=== PATIENT | male | born 1960 | race Caucasian/White ===

== ENCOUNTER 2019-07-29 08:46 | Emergency (ER) | payer BC ==
[2019-07-29] MEDS ORDERED: DOCUSATE NA 100 MG CAP PO ONE (10:00)
[2019-07-29 10:31] VITALS: BP 172/81; TEMP 98.3; O2SAT 99
--- NOTE | 2019-07-29 11:11 | ER ---
Nurse's Notes [facility] Name: Dany Thornton Age: 59 yrs Sex: Male : 1960 Arrival Date: 07/29/2019 Time: 08:50 Bed 2 Private MD: Kayode Rodriguez S Diagnosis: Impacted cerumen, bilateral Presentation: 07/29 09:05 Presenting complaint: Patient states: left ear pain. Pt states "It's been hurting for aa5 about 6 days now and I can't really hear out of it". 09:05 Transition of care: patient was not received from another setting of care. Onset of aa5 symptoms was July 2019. Risk Assessment: Do you want to hurt yourself or someone else? Patient reports no desire to harm self or others. Initial Sepsis Screen: Does the patient meet any 2 criteria? No. Patient's initial sepsis screen is negative. Does the patient have a suspected source of infection? No. Patient's initial sepsis screen is negative. Care prior to arrival: None. 09:05 Acuity: IRINEO 5 aa5 09:05 Method Of Arrival: Ambulatory aa5 Historical: - Allergies: 09:06 No Known Allergies; aa5 - PMHx: 09:06 Hypertension; aa5 - PSHx: 09:06 meniscus sx; left knee replacement; L shoulder sx; aa5 - Immunization history:: Flu vaccine is not up to date. - Social history:: Smoking status: Patient/guardian denies using tobacco. - Ebola Screening: : No symptoms or risks identified at this time. - Family history:: not pertinent. Screenin:30 Abuse screen: Denies threats or abuse. Denies injuries from another. Nutritional sv screening: No deficits noted. Tuberculosis screening: No symptoms or risk factors identified. Fall Risk None identified. Assessment: 09:30 General: Appears in no apparent distress. uncomfortable, well developed, Behavior is sv calm, cooperative, appropriate for age. Pain: Complains of pain in right ear and left ear Pain currently is 2 out of 10 on a pain scale. Neuro: Level of Consciousness is awake, alert, obeys commands, Oriented to person, place, time, situation, Gait is steady. Respiratory: Respiratory effort is even, unlabored, Respiratory pattern is regular, symmetrical. EENT: Tympanic membrane not visualized left ear and right ear due to cerumen. Ear canal cerumen noted. Derm: Skin is pink, warm \\T\\ dry. 09:40 Reassessment: Pt up for discharge, pt needs ear irrigation and waiting for pharmacy to bring medication for irrigation. 10:20 EENT: Tympanic membrane clear on left ear and right ear Ear canal clear on left ear and sv right ear. Vital Signs: 09:07 BP 172 / 81; Pulse 62; Resp 16 S; Temp 98.3(TE); Pulse Ox 99% ; Weight 69.85 kg (R); aa5 Height 5 ft. 7 in. (170.18 cm) (R); Pain 2/10; 09:07 Body Mass Index 24.12 (69.85 kg, 170.18 cm) aa5 ED Course: 08:50 Patient arrived in ED. as 08:50 Kayode Rodriguez MD is Private Physician. as 09:07 Triage completed. aa5 09:07 Arm band placed on. aa5 09:09 Mark Aquino MD is Attending Physician. alan 09:30 Patient has correct armband on for positive identification. Bed in low position. Call sv light in reach. Door closed. Head of bed elevated. 09:31 Kayode Rodriguez MD is Referral Physician. alan 09:31 Radha Bolanos MD is Referral Physician. alan 09:50 One-on-one care X 30 minutes. sv 09:50 Ear irrigation: Route both ears with Other warm water per Dr Aquino amount 500ml sv Patient tolerated well. 09:52 Radha Salgado RN is Primary Nurse. sv 10:26 No provider procedures requiring assistance completed. Patient did not have IV access sv during this emergency room visit. Administered Medications: 10:22 Drug: Colace Liquid 100 mg Route: PO; sv 10:22 Follow up: Response: No adverse reaction sv Outcome: 09:32 Discharge ordered by . alan 10:23 Discharged to home ambulatory. sv 10:23 Condition: stable 10:23 Discharge instructions given to patient, Instructed on discharge instructions, follow up and referral plans. Demonstrated understanding of instructions, follow-up care. 10:26 Patient left the ED. sv Signatures: Radha Salgado RN RN Miles, Mark, MD MD alan Dinesh, Cesia as Cummins, Dariana, RN RN aa5
--- NOTE | 2019-07-29 11:12 | EDPHYS ---
Physician Documentation [facility] Name: Dany Thornton Age: 59 yrs Sex: Male : 1960 Arrival Date: 07/29/2019 Time: 08:50 Bed 2 Private MD: Kayode Rodriguez S ED Physician Mark Aquino HPI: 07/29 09:24 This 59 yrs old Male presents to ER via Ambulatory with complaints of Ear alan Pain. 09:24 The patient presents with a fullness, pain. The complaints affect the right ear and alan left ear. Onset: The symptoms/episode began/occurred 3 day(s) ago. Modifying factors: The symptoms are alleviated by nothing, the symptoms are aggravated by nothing. Associated signs and symptoms: The patient has no apparent associated signs or symptoms. Severity of symptoms: At their worst the symptoms were mild in the emergency department the symptoms are unchanged. The patient has not experienced similar symptoms in the past. Historical: - Allergies: 09:06 No Known Allergies; aa5 - PMHx: 09:06 Hypertension; aa5 - PSHx: 09:06 meniscus sx; left knee replacement; L shoulder sx; aa5 - Immunization history:: Flu vaccine is not up to date. - Social history:: Smoking status: Patient/guardian denies using tobacco. - Ebola Screening: : No symptoms or risks identified at this time. - Family history:: not pertinent. ROS: 09:24 Constitutional: Negative for fever, chills, and weight loss, Eyes: Negative for injury, alan pain, redness, and discharge, Neck: Negative for injury, pain, and swelling, Cardiovascular: Negative for chest pain, palpitations, and edema, Respiratory: Negative for shortness of breath, cough, wheezing, and pleuritic chest pain, Abdomen/GI: Negative for abdominal pain, nausea, vomiting, diarrhea, and constipation, Back: Negative for injury and pain, : Negative for injury, bleeding, discharge, and swelling, MS/Extremity: Negative for injury and deformity, Skin: Negative for injury, rash, and discoloration, Neuro: Negative for headache, weakness, numbness, tingling, and seizure, Psych: Negative for depression, anxiety, suicide ideation, homicidal ideation, and hallucinations, Allergy/Immunology: Negative for hives, rash, and allergies, Endocrine: Negative for neck swelling, polydipsia, polyuria, polyphagia, and marked weight changes, Hematologic/Lymphatic: Negative for swollen nodes, abnormal bleeding, and unusual bruising. 09:24 ENT: Positive for ear pain. Exam: 09:24 Constitutional: This is a well developed, well nourished patient who is awake, alert, alan and in no acute distress. Head/Face: Normocephalic, atraumatic. Eyes: Pupils equal round and reactive to light, extra-ocular motions intact. Lids and lashes normal. Conjunctiva and sclera are non-icteric and not injected. Cornea within normal limits. Periorbital areas with no swelling, redness, or edema. Neck: Trachea midline, no thyromegaly or masses palpated, and no cervical lymphadenopathy. Supple, full range of motion without nuchal rigidity, or vertebral point tenderness. No Meningismus. Chest/axilla: Normal chest wall appearance and motion. Nontender with no deformity. No lesions are appreciated. Cardiovascular: Regular rate and rhythm with a normal S1 and S2. No gallops, murmurs, or rubs. Normal PMI, no JVD. No pulse deficits. Respiratory: Lungs have equal breath sounds bilaterally, clear to auscultation and percussion. No rales, rhonchi or wheezes noted. No increased work of breathing, no retractions or nasal flaring. Abdomen/GI: Soft, non-tender, with normal bowel sounds. No distension or tympany. No guarding or rebound. No evidence of tenderness throughout. Back: No spinal tenderness. No costovertebral tenderness. Full range of motion. Male : Normal genitalia with no discharge or lesions. Skin: Warm, dry with normal turgor. Normal color with no rashes, no lesions, and no evidence of cellulitis. MS/ Extremity: Pulses equal, no cyanosis. Neurovascular intact. Full, normal range of motion. Neuro: Awake and alert, GCS 15, oriented to person, place, time, and situation. Cranial nerves II-XII grossly intact. Motor strength 5/5 in all extremities. Sensory grossly intact. Cerebellar exam normal. Normal gait. Psych: Awake, alert, with orientation to person, place and time. Behavior, mood, and affect are within normal limits. :24 ENT: Ear canal(s): cerumen impaction, that is mild, that is moderate, bilaterally, TM's: not visable, because of cerumen. Vital Signs: 09:07 BP 172 / 81; Pulse 62; Resp 16 S; Temp 98.3(TE); Pulse Ox 99% ; Weight 69.85 kg (R); aa5 Height 5 ft. 7 in. (170.18 cm) (R); Pain 2/10; 09:07 Body Mass Index 24.12 (69.85 kg, 170.18 cm) aa5 MDM: 09:09 Patient medically screened. [facility] 09:27 Data reviewed: vital signs, nurses notes. [facility] 07/29 09:24 Order name: Misc. Order: irrigate each ear; Complete Time: 10:22 [facility] Administered Medications: :22 Drug: Colace Liquid 100 mg Route: PO; sv 10:22 Follow up: Response: No adverse reaction sv Disposition: 07/29/19 09:32 Discharged to Home. Impression: Impacted cerumen, bilateral. - Condition is Stable. - Discharge Instructions: Earwax Buildup, Adult, Ear Irrigation. - Medication Reconciliation Form, Thank You Letter, Antibiotic Education, Prescription Opioid Use form. - Follow up: Kayode Rodriguez MD; When: 2 - 3 days; Reason: Recheck today's complaints, Continuance of care, Re-evaluation by your physician. Follow up: Radha Bolanos MD; When: 2 - 3 days; Reason: Recheck today's complaints, Continuance of care, Re-evaluation by your physician. - Problem is new. - Symptoms have improved. Signatures: Radha Salgado, HARSHAD RN Mark Ashby MD MD cha Calderon, Audri RN RN aa5 Corrections: (The following items were deleted from the chart) 10:26 09:32 07/29/2019 09:32 Discharged to Home. Impression: Impacted cerumen, bilateral. sv Condition is Stable. Forms are Medication Reconciliation Form, Thank You Letter, Antibiotic Education, Prescription Opioid Use. Follow up: Kayode Rodriguez; When: 2 - 3 days; Reason: Recheck today's complaints, Continuance of care, Re-evaluation by your physician. Follow up: Radha Bolanos; When: 2 - 3 days; Reason: Recheck today's complaints, Continuance of care, Re-evaluation by your physician. Problem is new. Symptoms have improved. alan
== END 2019-07-29 10:26 | disposition home or self-care (01) ==
LOC: ER 08:46
DX: H61.23 Impacted cerumen, bilateral (principal)
CPT/HCPCS: 99284

== ENCOUNTER 2022-07-08 11:08 | Emergency (ER) | payer BC ==
--- OUTSIDE RECORDS SUMMARY | 2022-07-08 11:13 | XMS REPORT | Continuity of Care Document ---
:1960 Author Organization [facility] [place] t Address [address] [place] [address] [address]. [address] [place] [address] Care Team Providers Name Role Phone Kayode Pereira MD Primary Care Physician CHAPARRO TRAN Attending Clinician Unavailable Pob, [facility] Main Attending Clinician Unavailable Susy Hernandez MD Attending Clinician SUSY HERNANDEZ Attending Clinician Unavailable Doctor Unassigned, [place] Attending Clinician Unavailable Kayode Pereira MD Attending Clinician KAYODE PEREIRA Attending Clinician Unavailable CHRISTINA LÓPEZ Attending Clinician Unavailable Only, [facility] Test Attending Clinician Unavailable Christina Lovelace Attending Clinician Jacqueline Jones RN Attending Clinician Unavailable Provider, [facility] Attending Clinician Unavailable Henok Sorto Attending Clinician HENOK WYNNE Attending Clinician Unavailable aJ Sparks MD Attending Clinician JA SPARKS Attending Clinician Unavailable RADIOLOGY Attending Clinician Unavailable Radiology Attending Clinician Unavailable CYDNEY ALARCON Attending Clinician Unavailable Cydney Alarcon DO Attending Clinician Tamera Michaels Attending Clinician Ana PATRICIA, Carol East Attending Clinician Unavailable Isabel Fitzgerald DO Attending Clinician Roni Duffy DO Attending Clinician Margarita Keane MD Attending Clinician Lab, [facility] Fam Pob I Attending Clinician Unavailable JOSE ALFREDO CARVALHO Attending Clinician Unavailable JOSE ALFREDO CARVALHO Attending Clinician Unavailable Cole YIP, Inga Attending Clinician INGA GALVAN Attending Clinician Unavailable Jose Alfredo Carvalho MD Attending Clinician Provider, [facility] Attending Clinician Unavailable Diane Mg Attending Clinician Samantha Cardozo Attending Clinician Chaparro Tran MD Attending Clinician Only, [facility] Test Attending Clinician Unavailable Addison Kim Attending Clinician Abram Alarcon Attending Clinician CHAPARRO TRAN Admitting Clinician Unavailable NOAH GUZMAN Admitting Clinician Unavailable CYDNEY ALARCON Admitting Clinician Unavailable Roni Duffy DO Admitting Clinician Chaparro Tran MD Admitting Clinician Payers Payer Name Policy Type Policy Number Effective Date Expiration Date S ource BCBS FED SELECT [id number] 2005 00:00:00 Problems Condition Condition Condition Status Onset Resolution Last Treating Co mments Source Name Details Category Date Date Treatment Clinician Date PUD PUD Disease Active Univers (peptic (peptic 9-15 ity of ulcer ulcer 00:00: [place] disease) disease) 00 Medica l Branch Syncope Syncope Disease Active Univers 8-24 ity of 00:00: [address] Branch Hyponatrem Hyponatrem Disease Active U nivers ia ia 8-22 ity of 00:00: [address] Branch M75.102 - M75.102 - Diagnosis Active 2016-02-19 Memoria UNSP UNSP 02-14 11:15:00 l ROTATR-CUF ROTATR-CUF 00:01: [place] F F 00 TEAR/RUPTR TEAR/RUPTR OF OF Active 02/15/2016 MH OPID [place] Left Left Disease Active Univers shoulder shoulder 02-07 ity of pain pain 00:00: [place] 00 Medical Branch Essential Essential Disease Active 2014-07 Uni vers hypertensi hypertensi 2-04 it y of on on 00:00: [place] 00 Medical Branch Allergies, Adverse Reactions, Alerts Allergy Allergy Status Severity Reaction(s) Onset Inactive Treating Comm ents Source Name Type Date Date Clinician Diphenhy Propensi Active Other - See Causes U nivers dramine ty to comments 02-16 him to be ity of Hcl adverse 00:00: tense and [place] reaction 00 funny Medical s feeling Branch in chest DIPHENHY DRUG Active Other-Cmnt Univ ers DRAMINE INGREDI 02-16 ity of HCL 00:00: [place] 00 Medical Branch Social History Social Habit Start Date Stop Date Quantity Comments Source History of Chews Tobacco University of tobacco use [facility] Exposure to 2022-05-09 2022-05-19 Not sure [facility] SARS-CoV-2 00:00:00 11:45:00 [facility] (event) Branch Alcohol intake 2022-05-19 2022-05-19 0 /d University of 00:00:00 00:00:00 [facility] Tobacco use and 2016-02-08 2016-02-08 User of smokeless Un iversity of exposure 00:00:00 00:00:00 tobacco [facility] Sex [birth year] Universit y of 00:00:00 00:00:00 [facility] Smoking Status Start Date Stop Date Source Never smoked tobacco [facility] Medications Ordered Filled Start Stop Current Ordering Indication Dosage Frequency Signature Comments Components Source Medication Medication Date Date Medication? Clinician (SIG) Name Name zolpidem 10 2021-07 Yes [id number] 10mg Take 1 Univers mg tablet 1-22 tablet by ity o f 00:00: mouth at [place] 00 bedtime as Medical needed for Branch Insomnia. HYDROcodone 2021-07 Yes 2745 1{tbl} Take 1 Un [place] -acetaminop 1-22 tablet by ity of hen 5-325 00:00: mouth [place] mg tablet 00 every 6 Medical (six) Branch hours as needed for Pain (scale 4-6). Indication s: chronic pain zolpidem 10 2021-07 Yes [id number] 10mg Take 1 Univers mg tablet 1-22 tablet by ity o f 00:00: mouth at [place] 00 bedtime as Medical needed for Branch Insomnia. HYDROcodone 2021-07 Yes [id number] 1{tbl} Take 1 Un [place] -acetaminop 1-22 tablet by ity of hen 5-325 00:00: mouth [place] mg tablet 00 every 6 Medical (six) Branch hours as needed for Pain (scale 4-6). Indication s: chronic pain zolpidem 10 2021-07 Yes [id number] 10mg Take 1 Univers mg tablet 1-22 tablet by ity o f 00:00: mouth at [place] 00 bedtime as Medical needed for Branch Insomnia. HYDROcodone 2021-07 Yes [id number] 1{tbl} Take 1 Un [place] -acetaminop 1-22 tablet by ity of hen 5-325 00:00: mouth [place] mg tablet 00 every 6 Medical (six) Branch hours as needed for Pain (scale 4-6). Indication s: chronic pain propranoloL 2021-07 Yes [id number] 10mg Take 1 Univers 10 mg 0-27 9105 tablet by ity of tablet 00:00: mouth in [place] 00 the Medical morning Branch and 1 tablet in the evening. zolpidem 10 2021-07 Yes [id number] 10mg Take 1 Univers mg tablet 0-27 tablet by ity o f 00:00: mouth at [place] 00 bedtime as Medical needed for Branch Insomnia. nebivoloL 2021-07 Yes [id number] 10mg Take 1 Un [facility] 10 mg 0-27 tablet by ity of tablet 00:00: mouth in [place] 00 the Medical morning. Branch hydroCHLORO 2021-07 Yes [id number] 12.5mg Take 1 Univers thiazide 0-27 tablet by ity of 12.5 mg 00:00: mouth [place] tablet 00 every Medical morning. Branch azithromyci 2021-07 Yes [id number] 250mg Z-Romel = Univers n 250 mg 0-27 500 mg day ity o f tablet 00:00: 1, then [place] 00 250 mg Medical days 2 to Branch 5. Take 500 mg day 1, then 250 mg days 2 to 5. propranoloL 2021-07 Yes [id number] 10mg Take 1 Univers 10 mg 0-27 9105 tablet by ity of tablet 00:00: mouth in [place] 00 the Medical morning Branch and 1 tablet in the evening. zolpidem 10 2021-07 Yes [id number] 10mg Take 1 Univers mg tablet 0-27 tablet by ity o f 00:00: mouth at [place] 00 bedtime as Medical needed for Branch Insomnia. nebivoloL 2021-07 Yes [id number] 10mg Take 1 Un [facility] 10 mg 0-27 tablet by ity of tablet 00:00: mouth in [place] 00 the Medical morning. Branch hydroCHLORO 2021-07 Yes [id number] 12.5mg Take 1 Univers thiazide 0-27 tablet by ity of 12.5 mg 00:00: mouth [place] tablet 00 every Medical morning. Branch azithromyci 2021-07 Yes [id number] 250mg Z-Romel = Univers n 250 mg 0-27 500 mg day ity o f tablet 00:00: 1, then [place] 00 250 mg Medical days 2 to Branch 5. Take 500 mg day 1, then 250 mg days 2 to 5. HYDROcodone 2021-07 Yes [id number] 1{tbl} Take 1 Un [place] -acetaminop 0-27 tablet by ity of hen 5-325 00:00: mouth [place] mg tablet 00 every 6 Medical (six) Branch hours as needed for Pain (scale 4-6). Indication s: chronic pain propranoloL 2021-07 Yes [id number] 10mg Take 1 Univers 10 mg 0-27 9105 tablet by ity of tablet 00:00: mouth in [place] 00 the Medical morning Branch and 1 tablet in the evening. zolpidem 10 2021-07 Yes [id number] 10mg Take 1 Univers mg tablet 0-27 tablet by ity o f 00:00: mouth at [place] 00 bedtime as Medical needed for Branch Insomnia. nebivoloL 2021-07 Yes [id number] 10mg Take 1 Un [facility] 10 mg 0-27 tablet by ity of tablet 00:00: mouth in [place] 00 the Medical morning. Branch hydroCHLORO 2021-07 Yes [id number] 12.5mg Take 1 Univers thiazide 0-27 tablet by ity of 12.5 mg 00:00: mouth [place] tablet 00 every Medical morning. Branch azithromyci 2021-07 Yes [id number] 250mg Z-Romel = Univers n 250 mg 0-27 500 mg day ity o f tablet 00:00: 1, then [place] 00 250 mg Medical days 2 to Branch 5. Take 500 mg day 1, then 250 mg days 2 to 5. propranoloL 2021-07 Yes [id number] 10mg Take 1 Univers 10 mg 0-27 9105 tablet by ity of tablet 00:00: mouth in [place] 00 the Medical morning Branch and 1 tablet in the evening. zolpidem 10 2021-07 Yes [id number] 10mg Take 1 Univers mg tablet 0-27 tablet by ity o f 00:00: mouth at [place] 00 bedtime as Medical needed for Branch Insomnia. nebivoloL 2021-07 Yes [id number] 10mg Take 1 Un [facility] 10 mg 0-27 tablet by ity of tablet 00:00: mouth in [place] 00 the Medical morning. Branch hydroCHLORO 2021-07 Yes [id number] 12.5mg Take 1 Univers thiazide 0-27 tablet by ity of 12.5 mg 00:00: mouth [place] tablet 00 every Medical morning. Branch azithromyci 2021-07 Yes [id number] 250mg Z-Romel = Univers n 250 mg 0-27 500 mg day ity o f tablet 00:00: 1, then [place] 00 250 mg Medical days 2 to Branch 5. Take 500 mg day 1, then 250 mg days 2 to 5. propranoloL 2021-07 Yes [id number] 10mg Take 1 Univers 10 mg 0-27 9105 tablet by ity of tablet 00:00: mouth in [place] 00 the Medical morning Branch and 1 tablet in the evening. nebivoloL 2021-07 Yes [id number] 10mg Take 1 Un [place] 10 mg 0-27 tablet by ity of tablet 00:00: mouth in [place] 00 the Medical morning. Branch hydroCHLORO 2021-07 Yes [id number] 12.5mg Take 1 Univers thiazide 0-27 tablet by ity of 12.5 mg 00:00: mouth [place] tablet 00 every Medical morning. Branch azithromyci 2021-07 Yes [id number] 250mg Z-Romel = Univers n 250 mg 0-27 500 mg day ity o f tablet 00:00: 1, then [place] 00 250 mg Medical days 2 to Branch 5. Take 500 mg day 1, then 250 mg days 2 to 5. propranoloL 2021-07 Yes [id number] 10mg Take 1 Univers 10 mg 0-27 9105 tablet by ity of tablet 00:00: mouth in [place] 00 the Medical morning Branch and 1 tablet in the evening. nebivoloL 2021-07 Yes [id number] 10mg Take 1 Un [facility] 10 mg 0-27 tablet by ity of tablet 00:00: mouth in [place] 00 the Medical morning. Branch hydroCHLORO 2021-07 Yes [id number] 12.5mg Take 1 Univers thiazide 0-27 tablet by ity of 12.5 mg 00:00: mouth [place] tablet 00 every Medical morning. Branch azithromyci 2021-07 Yes [id number] 250mg Z-Romel = Univers n 250 mg 0-27 500 mg day ity o f tablet 00:00: 1, then [place] 00 250 mg Medical days 2 to Branch 5. Take 500 mg day 1, then 250 mg days 2 to 5. propranoloL 2021-07 Yes [id number] 10mg Take 1 Univers 10 mg 0-27 9105 tablet by ity of tablet 00:00: mouth in [place] 00 the Medical morning Branch and 1 tablet in the evening. nebivoloL 2021-07 Yes [id number] 10mg Take 1 [facility] 10 mg 0-27 tablet by ity of tablet 00:00: mouth in [place] 00 the Medical morning. Branch hydroCHLORO 2021-07 Yes [id number] 12.5mg Take 1 Univers thiazide 0-27 tablet by ity of 12.5 mg 00:00: mouth [place] tablet 00 every Medical morning. Branch azithromyci 2021-07 Yes [id number] 250mg Z-Romel = Univers n 250 mg 0-27 500 mg day ity o f tablet 00:00: 1, then [place] 00 250 mg Medical days 2 to Branch 5. Take 500 mg day 1, then 250 mg days 2 to 5. zolpidem 10 2021-07- No [id number] 10mg Take 1 Univers mg tablet 0-27 11-22 tablet by ity of 00:00: 00:00 mouth at [place] 00 :00 bedtime as Medical needed for Branch Insomnia. HYDROcodone 2021-07- No 2745 1{tbl} Take 1 U nivers -acetaminop 0-27 11-22 tablet by it y of hen 5-325 00:00: 00:00 mouth [place] mg tablet 00 :00 every 6 Medical (six) Branch hours as needed for Pain (scale 4-6). Indication s: chronic pain PROPRANOLOL 2-0 Yes [id number] TAKE 1 Univers 10 mg 9-22 9105 TABLET BY ity of tablet 00:00: MOUTH [place] 00 TWICE Medical DAILY. Branch PROPRANOLOL 2021-0 Yes [id number] TAKE 1 Univers 10 mg 9-22 9105 TABLET BY ity of tablet 00:00: MOUTH [place] 00 TWICE Medical DAILY. Branch PROPRANOLOL 2021-0 Yes [id number] TAKE 1 Univers 10 mg 9-22 9105 TABLET BY ity of tablet 00:00: MOUTH [place] 00 TWICE Medical DAILY. Branch PROPRANOLOL 2021-0 Yes [id number] TAKE 1 Univers 10 mg 9-22 9105 TABLET BY ity of tablet 00:00: MOUTH [place] 00 TWICE Medical DAILY. Branch PROPRANOLOL 2021-0 Yes [id number] TAKE 1 Univers 10 mg 9-22 9105 TABLET BY ity of tablet 00:00: MOUTH [place] 00 TWICE Medical DAILY. Branch PROPRANOLOL 2021-0 Yes [id number] TAKE 1 Univers 10 mg 9-22 9105 TABLET BY ity of tablet 00:00: MOUTH [place] 00 TWICE Medical DAILY. Branch PROPRANOLOL 2021-0 2021- No [id number] TAKE 1 Univers 10 mg 9-22 10-27 9105 TABLET BY ity of tablet 00:00: 00:00 MOUTH [place] 00 :00 TWICE Medical DAILY. Branch PROPRANOLOL 2021-0 2- No [id number] TAKE 1 Univers 10 mg 9-22 10-27 9105 TABLET BY ity of tablet 00:00: 00:00 MOUTH [place] 00 :00 TWICE Medical DAILY. Branch HYDROcodone 2021-0 2021- No [id number] 1{tbl} Take 1 U nivers -acetaminop 9- 09-14 tablet by it y of hen 5-325 00:00: 04:59 mouth [place] mg tablet 00 :00 every 6 Medical (six) Branch hours as needed for Pain (scale 4-6) for up to 7 days. Indication s: chronic pain HYDROcodone 2021-0 2021- No 2745 1{tbl} Take 1 U nivers -acetaminop 9-06 09-14 tablet by it y of hen 5-325 00:00: 04:59 mouth [place] mg tablet 00 :00 every 6 Medical (six) Branch hours as needed for Pain (scale 4-6) for up to 7 days. Indication s: chronic pain lisinopril 2021- No 40mg Take 40 mg Univers 40 mg 03-24- by mouth ity of tablet 15:55: 00:00 daily. [place] 02 :00 Medical Branch zolpidem 10 2021-0 Yes [id number] 10mg Take 1 Univers mg tablet 9-01 tablet by ity o f 00:00: mouth at [place] 00 bedtime as Medical needed for Branch Insomnia. lisinopriL 0 Yes [id number] 40mg Take 1 U nivers 40 mg 9-01 tablet by ity of tablet 00:00: mouth in [place] 00 the Medical morning. Branch zolpidem 10 0 Yes [id number] 10mg Take 1 Univers mg tablet 9-01 tablet by ity o f 00:00: mouth at [place] 00 bedtime as Medical needed for Branch Insomnia. lisinopriL 2021-0 Yes [id number] 40mg Take 1 U nivers 40 mg 9-01 tablet by ity of tablet 00:00: mouth in [place] the Medical morning. Branch zolpidem 10 0 Yes [id number] 10mg Take 1 Univers mg tablet 9-01 tablet by ity o f 00:00: mouth at [place] 00 bedtime as Medical needed for Branch Insomnia. lisinopriL 0 Yes [id number] 40mg Take 1 U nivers 40 mg 9-01 tablet by ity of tablet 00:00: mouth in [place] the Medical morning. Branch zolpidem 10 0 Yes [id number] 10mg Take 1 Univers mg tablet 9-01 tablet by ity o f 00:00: mouth at [place] 00 bedtime as Medical needed for Branch Insomnia. lisinopriL 0 Yes [id number] 40mg Take 1 U nivers 40 mg 9-01 tablet by ity of tablet 00:00: mouth in [place] 00 the Medical morning. Branch zolpidem 10 2021-0 Yes [id number] 10mg Take 1 Univers mg tablet 9-01 tablet by ity o f 00:00: mouth at [place] 00 bedtime as Medical needed for Branch Insomnia. lisinopriL 2021-0 Yes [id number] 40mg Take 1 U nivers 40 mg 9-01 tablet by ity of tablet 00:00: mouth in [place] 00 the Medical morning. Branch zolpidem 10 0 Yes [id number] 10mg Take 1 Univers mg tablet 9-01 tablet by ity o f 00:00: mouth at [place] 00 bedtime as Medical needed for Branch Insomnia. lisinopriL 0 Yes [id number] 40mg Take 1 U nivers 40 mg 9-01 tablet by ity of tablet 00:00: mouth in [place] 00 the Medical morning. Branch zolpidem 10 0 Yes [id number] 10mg Take 1 Univers mg tablet 9-01 tablet by ity o f 00:00: mouth at [place] 00 bedtime as Medical needed for Branch Insomnia. lisinopriL 0 Yes [id number] 40mg Take 1 U nivers 40 mg 9-01 tablet by ity of tablet 00:00: mouth in [place] 00 the Medical morning. Branch zolpidem 10 0 Yes [id number] 10mg Take 1 Univers mg tablet 9-01 tablet by ity o f 00:00: mouth at [place] 00 bedtime as Medical needed for Branch Insomnia. lisinopriL 0 Yes [id number] 40mg Take 1 U nivers 40 mg 9-01 tablet by ity of tablet 00:00: mouth in [place] 00 the Medical morning. Branch zolpidem 10 0 Yes [id number] 10mg Take 1 Univers mg tablet 9- tablet by ity o f 00:00: mouth at [place] 00 bedtime as Medical needed for Branch Insomnia. lisinopriL 0 Yes [id number] 40mg Take 1 U nivers 40 mg 9-01 tablet by ity of tablet 00:00: mouth in [place] 00 the Medical morning. Branch zolpidem 10 0 Yes [id number] 10mg Take 1 Univers mg tablet 9-01 tablet by ity o f 00:00: mouth at [place] 00 bedtime as Medical needed for Branch Insomnia. lisinopriL 0 Yes [id number] 40mg Take 1 U nivers 40 mg 9-01 tablet by ity of tablet 00:00: mouth in [place] 00 the Medical morning. Branch zolpidem 10 2021-0 2021- No [id number] 10mg Take 1 Univers mg tablet 9-05-19 tablet by ity of 00:00: 00:00 mouth at [place] 00 :00 bedtime as Medical needed for Branch Insomnia. lisinopriL 2021- No [id number] 40mg Take 1 Univers 40 mg 03-24 tablet by ity of tablet 00:00: 00:00 mouth in [place] 00 :00 the Medical morning. Branch zolpidem 10 2021- No [id number] 10mg Take 1 Univers mg tablet 03-24 tablet by ity of 00:00: 00:00 mouth at [place] 00 :00 bedtime as Medical needed for Branch Insomnia. lisinopriL 2021- No [id number] 40mg Take 1 Univers 40 mg 03-24 tablet by ity of tablet 00:00: 00:00 mouth in [place] 00 :00 the Medical morning. Branch HYDROcodone 2021- No 2745 1{tbl} Take 1 U nivers -acetaminop 8-10 -18 tablet by it y of hen 5-325 00:00: 04:59 mouth [place] mg tablet 00 :00 every 6 Medical (six) Branch hours as needed for Pain (scale 4-6) for up to 7 days. Indication s: chronic pain zolpidem 10 Yes [id number] 10mg Take 1 Univers mg tablet - tablet by ity o f 00:00: mouth at [place] 00 bedtime as Medical needed for Branch Insomnia. zolpidem 10 Yes [id number] 10mg Take 1 Univers mg tablet -28 tablet by ity o f 00:00: mouth at [place] 00 bedtime as Medical needed for Branch Insomnia. zolpidem 10 2021- No [id number] 10mg Take 1 Univers mg tablet -03-24 tablet by ity of 00:00: 00:00 mouth at [place] 00 :00 bedtime as Medical needed for Branch Insomnia. molnupiravi Yes [id number] 800mg Take 4 Univers r 200 mg 7-22 capsules ity of capsule 00:00: by mouth [place] 00 every 12 Medical (twelve) Branch hours. molnupiravi Yes [id number] 800mg Take 4 Univers r 200 mg 7-22 capsules ity of capsule 00:00: by mouth [place] 00 every 12 Medical (twelve) Branch hours. molnupiravi 2021-0 Yes [id number] 800mg Take 4 Univers r 200 mg 7-22 capsules ity of capsule 00:00: by mouth [place] 00 every 12 Medical (twelve) Branch hours. molnupiravi 2021-0 Yes [id number] 800mg Take 4 Univers r 200 mg 7-22 capsules ity of capsule 00:00: by mouth [place] 00 every 12 Medical (twelve) Branch hours. molnupiravi 2021-0 Yes [id number] 800mg Take 4 Univers r 200 mg 7-22 capsules ity of capsule 00:00: by mouth [place] 00 every 12 Medical (twelve) Branch hours. molnupiravi 0 Yes [id number] 800mg Take 4 Univers r 200 mg 7-22 capsules ity of capsule 00:00: by mouth [place] 00 every 12 Medical (twelve) Branch hours. molnupiravi 2021-0 Yes [id number] 800mg Take 4 Univers r 200 mg 7-22 capsules ity of capsule 00:00: by mouth [place] 00 every 12 Medical (twelve) Branch hours. molnupiravi 2021-0 Yes [id number] 800mg Take 4 Univers r 200 mg 7-22 capsules ity of capsule 00:00: by mouth [place] 00 every 12 Medical (twelve) Branch hours. molnupiravi 0 Yes [id number] 800mg Take 4 Univers r 200 mg 7-22 capsules ity of capsule 00:00: by mouth [place] 00 every 12 Medical (twelve) Branch hours. molnupiravi 2021-0 Yes [id number] 800mg Take 4 Univers r 200 mg 7-22 capsules ity of capsule 00:00: by mouth [place] 00 every 12 Medical (twelve) Branch hours. molnupiravi 2021-0 Yes [id number] 800mg Take 4 Univers r 200 mg 7-22 capsules ity of capsule 00:00: by mouth [place] 00 every 12 Medical (twelve) Branch hours. molnupiravi 2021-0 Yes [id number] 800mg Take 4 Univers r 200 mg 7-22 capsules ity of capsule 00:00: by mouth [place] 00 every 12 Medical (twelve) Branch hours. molnupiravi 2021-0 Yes [id number] 800mg Take 4 Univers r 200 mg 7-22 capsules ity of capsule 00:00: by mouth [place] 00 every 12 Medical (twelve) Branch hours. molnupiravi 2021-0 Yes [id number] 800mg Take 4 Univers r 200 mg 7-22 capsules ity of capsule 00:00: by mouth [place] 00 every 12 Medical (twelve) Branch hours. molnupiravi 2021-0 Yes [id number] 800mg Take 4 Univers r 200 mg 7-22 capsules ity of capsule 00:00: by mouth [place] 00 every 12 Medical (twelve) Branch hours. molnupiravi 2021-0 Yes [id number] 800mg Take 4 Univers r 200 mg 7-22 capsules ity of capsule 00:00: by mouth [place] 00 every 12 Medical (twelve) Branch hours. molnupiravi 0 Yes [id number] 800mg Take 4 Univers r 200 mg 7-22 capsules ity of capsule 00:00: by mouth [place] 00 every 12 Medical (twelve) Branch hours. molnupiravi 2021-0 Yes [id number] 800mg Take 4 Univers r 200 mg 7-22 capsules ity of capsule 00:00: by mouth [place] 00 every 12 Medical (twelve) Branch hours. molnupiravi 2021-0 Yes [id number] 800mg Take 4 Univers r 200 mg 7-22 capsules ity of capsule 00:00: by mouth [place] 00 every 12 Medical (twelve) Branch hours. propranoloL 2-0 Yes [id number] 10mg Take 1 Univers 10 mg 3-24 9105 tablet by ity of tablet 00:00: mouth (two) Medical times Branch daily. propranoloL 2022-0 Yes [id number] 10mg Take 1 Univers 10 mg 3-24 9105 tablet by ity of tablet 00:00: mouth (two) Medical times Branch daily. propranoloL 2022-0 Yes [id number] 10mg Take 1 [facility] 10 mg 3-24 9105 tablet by ity of tablet 00:00: mouth (two) Medical times Branch daily. propranoloL 2022-0 Yes [id number] 10mg Take 1 [facility] 10 mg 3-24 9105 tablet by ity of tablet 00:00: mouth (two) Medical times Branch daily. propranoloL 2022-0 Yes [id number] 10mg Take 1 [facility] 10 mg 3-24 9105 tablet by ity of tablet 00:00: mouth 2 [place] 00 (two) Medical times Branch daily. propranoloL 2022-0 Yes [id number] 10mg Take 1 [facility] 10 mg 3-24 9105 tablet by ity of tablet 00:00: mouth 2 [place] 00 (two) Medical times Branch daily. HYDROcodone 2021-0 Yes 1{tbl} Take 1 Un [facility] -acetaminop 3-24 tablet by ity of hen 5-325 00:00: mouth. [place] mg tablet 00 Medical Branch HYDROcodone 2021-0 2- No 1{tbl} Take 1 U nivers -acetaminop 3-24 10-27 tablet by it y of hen 5-325 00:00: 00:00 mouth. [place] mg tablet 00 :00 Medical Branch HYDROcodone 2021-0 2021- No 1{tbl} Take 1 U nivers -acetaminop 3-24 10-27 tablet by it y of hen 5-325 00:00: 00:00 mouth. [place] mg tablet 00 :00 Medical Branch HYDROcodone 2021-0 2- No 1{tbl} Take 1 U nivers -acetaminop 3-24 10-27 tablet by it y of hen 5-325 00:00: 00:00 mouth. [place] mg tablet 00 :00 Medical Branch propranoloL 2021-0 2- No [id number] 10mg Take 1 Univers 10 mg 3-24 -22 9105 tablet by ity of tablet 00:00: 00:00 mouth 2 [place] 00 :00 (two) Medical times Branch daily. hydroCHLORO 2021-0 Yes 12.5mg Take 12.5 Univers thiazide 3-11 mg by ity of 12.5 mg 00:00: mouth [place] tablet 00 every Medical morning. Branch hydroCHLORO 2021-0 Yes 12.5mg Take 12.5 Univers thiazide 3-11 mg by ity of 12.5 mg 00:00: mouth [place] tablet 00 every Medical morning. Branch hydroCHLORO 2-0 Yes 12.5mg Take 12.5 Univers thiazide 3-11 mg by ity of 12.5 mg 00:00: mouth [place] tablet 00 every Medical morning. Branch hydroCHLORO 2021-0 Yes 12.5mg Take 12.5 Univers thiazide 3-11 mg by ity of 12.5 mg 00:00: mouth [place] tablet 00 every Medical morning. Branch hydroCHLORO 2022-0 Yes 12.5mg Take 12.5 Univers thiazide 3-11 mg by ity of 12.5 mg 00:00: mouth [place] tablet 00 every Medical morning. Branch hydroCHLORO 2022-0 Yes 12.5mg Take 12.5 Univers thiazide 3-11 mg by ity of 12.5 mg 00:00: mouth [place] tablet 00 every Medical morning. Branch hydroCHLORO 2022-0 Yes 12.5mg Take 12.5 Univers thiazide 3-11 mg by ity of 12.5 mg 00:00: mouth [place] tablet 00 every Medical morning. Branch hydroCHLORO 2022-0 Yes 12.5mg Take 12.5 Univers thiazide 3-11 mg by ity of 12.5 mg 00:00: mouth [place] tablet 00 every Medical morning. Branch hydroCHLORO 2022-0 Yes 12.5mg Take 12.5 Univers thiazide 3-11 mg by ity of 12.5 mg 00:00: mouth [place] tablet 00 every Medical morning. Branch hydroCHLORO 2-0 Yes 12.5mg Take 12.5 Univers thiazide 3-11 mg by ity of 12.5 mg 00:00: mouth [place] tablet 00 every Medical morning. Branch hydroCHLORO 2-0 Yes 12.5mg Take 12.5 Univers thiazide 3-11 mg by ity of 12.5 mg 00:00: mouth [place] tablet 00 every Medical morning. Branch hydroCHLORO 2022-0 Yes 12.5mg Take 12.5 Univers thiazide 3-11 mg by ity of 12.5 mg 00:00: mouth [place] tablet 00 every Medical morning. Branch hydroCHLORO 2022-0 2022- No 12.5mg Take 12.5 Univers thiazide 3-11 10-27 mg by ity of 12.5 mg 00:00: 00:00 mouth [place] tablet 00 :00 every Medical morning. Branch hydroCHLORO 2022-0 2- No 12.5mg Take 12.5 Univers thiazide 3-11 10-27 mg by ity of 12.5 mg 00:00: 00:00 mouth [place] tablet 00 :00 every Medical morning. Branch ACETAMINOPH 2-0 Yes [id number] TAKE 1 Univers EN-CODEINE 3-08 TABLET BY ity of 300-30 mg 00:00: MOUTH [place] tablet 00 EVERY 4 Medical HOURS Branch NEEDED FOR MODERATE PAIN OR CHRONIC PAIN ACETAMINOPH 2022-0 Yes [id number] TAKE 1 Univers EN-CODEINE 3-08 TABLET BY ity of 300-30 mg 00:00: MOUTH [place] tablet 00 EVERY 4 Medical HOURS Branch NEEDED FOR MODERATE PAIN OR CHRONIC PAIN ACETAMINOPH 2022-0 Yes [id number] TAKE 1 Univers EN-CODEINE 3-08 TABLET BY ity of 300-30 mg 00:00: MOUTH [place] tablet 00 EVERY 4 Medical HOURS Branch NEEDED FOR MODERATE PAIN OR CHRONIC PAIN ACETAMINOPH 2022-0 Yes [id number] TAKE 1 Univers EN-CODEINE 3-08 TABLET BY ity of 300-30 mg 00:00: MOUTH [place] tablet 00 EVERY 4 Medical HOURS Branch NEEDED FOR MODERATE PAIN OR CHRONIC PAIN ACETAMINOPH 2022-0 Yes [id number] TAKE 1 Univers EN-CODEINE 3-08 TABLET BY ity of 300-30 mg 00:00: MOUTH [place] tablet 00 EVERY 4 Medical HOURS Branch NEEDED FOR MODERATE PAIN OR CHRONIC PAIN ACETAMINOPH 2022-0 Yes [id number] TAKE 1 Univers EN-CODEINE 3-08 TABLET BY ity of 300-30 mg 00:00: MOUTH [place] tablet 00 EVERY 4 Medical HOURS Branch NEEDED FOR MODERATE PAIN OR CHRONIC PAIN ACETAMINOPH 2022-0 Yes [id number] TAKE 1 Univers EN-CODEINE 3-08 TABLET BY ity of 300-30 mg 00:00: MOUTH [place] tablet 00 EVERY 4 Medical HOURS Branch NEEDED FOR MODERATE PAIN OR CHRONIC PAIN ACETAMINOPH 2022-0 Yes [id number] TAKE 1 Univers EN-CODEINE 3-08 TABLET BY ity of 300-30 mg 00:00: MOUTH [place] tablet 00 EVERY 4 Medical HOURS Branch NEEDED FOR MODERATE PAIN OR CHRONIC PAIN ACETAMINOPH 2022-0 Yes [id number] TAKE 1 Univers EN-CODEINE 3-08 TABLET BY ity of 300-30 mg 00:00: MOUTH [place] tablet 00 EVERY 4 Medical HOURS Branch NEEDED FOR MODERATE PAIN OR CHRONIC PAIN ACETAMINOPH 2022-0 Yes [id number] TAKE 1 Univers EN-CODEINE 3-08 TABLET BY ity of 300-30 mg 00:00: MOUTH [place] tablet 00 EVERY 4 Medical HOURS Branch NEEDED FOR MODERATE PAIN OR CHRONIC PAIN ACETAMINOPH 2022-0 Yes [id number] TAKE 1 Univers EN-CODEINE 3-08 TABLET BY ity of 300-30 mg 00:00: MOUTH [place] tablet 00 EVERY 4 Medical HOURS Branch NEEDED FOR MODERATE PAIN OR CHRONIC PAIN ACETAMINOPH 2022-0 Yes [id number] TAKE 1 Univers EN-CODEINE 3-08 TABLET BY ity of 300-30 mg 00:00: MOUTH [place] tablet 00 EVERY 4 Medical HOURS Branch NEEDED FOR MODERATE PAIN OR CHRONIC PAIN ACETAMINOPH 2022-0 2022- No [id number] TAKE 1 Univers EN-CODEINE 3-08 10-27 TABLET BY ity of 300-30 mg 00:00: 00:00 MOUTH [place] tablet 00 :00 EVERY 4 Medical HOURS Branch NEEDED FOR MODERATE PAIN OR CHRONIC PAIN ACETAMINOPH 2-0 2- No [id number] TAKE 1 Univers EN-CODEINE 3-08 10-27 TABLET BY ity of 300-30 mg 00:00: 00:00 MOUTH [place] tablet 00 :00 EVERY 4 Medical HOURS Branch NEEDED FOR MODERATE PAIN OR CHRONIC PAIN furosemide 2021-0 Yes TAKE 1 Unive rs 20 mg 3-03 TABLET BY ity of tablet 00:00: MOUTH [place] 00 EVERY DAY Medical MONITOR Branch BLOOD PRESSURE WE DISUSSED furosemide 0 Yes TAKE 1 Unive rs 20 mg 3-03 TABLET BY ity of tablet 00:00: MOUTH 00 EVERY DAY Medical MONITOR Branch BLOOD PRESSURE WE DISUSSED furosemide 2021-0 Yes TAKE 1 Unive rs 20 mg 3-03 TABLET BY ity of tablet 00:00: MOUTH 00 EVERY DAY Medical MONITOR Branch BLOOD PRESSURE WE DISUSSED furosemide 2021-0 Yes TAKE 1 Unive rs 20 mg 3-03 TABLET BY ity of tablet 00:00: MOUTH 00 EVERY DAY Medical MONITOR Branch BLOOD PRESSURE WE DISUSSED furosemide 2021-0 Yes TAKE 1 Unive rs 20 mg 3-03 TABLET BY ity of tablet 00:00: MOUTH [place] 00 EVERY DAY Medical MONITOR Branch BLOOD PRESSURE WE DISUSSED furosemide 2021-0 Yes TAKE 1 Unive rs 20 mg 3-03 TABLET BY ity of tablet 00:00: MOUTH [place] 00 EVERY DAY Medical MONITOR Branch BLOOD PRESSURE WE DISUSSED furosemide 2021-0 Yes TAKE 1 Unive rs 20 mg 3-03 TABLET BY ity of tablet 00:00: MOUTH [place] 00 EVERY DAY Medical MONITOR Branch BLOOD PRESSURE WE DISUSSED furosemide 2021-0 Yes TAKE 1 Unive rs 20 mg 3-03 TABLET BY ity of tablet 00:00: MOUTH [place] 00 EVERY DAY Medical MONITOR Branch BLOOD PRESSURE WE DISUSSED furosemide 2021-0 Yes TAKE 1 Unive rs 20 mg 3-03 TABLET BY ity of tablet 00:00: MOUTH [place] 00 EVERY DAY Medical MONITOR Branch BLOOD PRESSURE WE DISUSSED furosemide 0 Yes TAKE 1 Unive rs 20 mg 3-03 TABLET BY ity of tablet 00:00: [facility] 00 EVERY DAY Medical MONITOR Branch BLOOD PRESSURE WE DISUSSED furosemide 0 Yes TAKE 1 Unive rs 20 mg 3-03 TABLET BY ity of tablet 00:00: [facility] 00 EVERY DAY Medical MONITOR Branch BLOOD PRESSURE WE DISUSSED furosemide 0 Yes TAKE 1 Unive rs 20 mg 3-03 TABLET BY ity of tablet 00:00: [facility] 00 EVERY DAY Medical MONITOR Branch BLOOD PRESSURE WE DISUSSED furosemide 0 Yes TAKE 1 Unive rs 20 mg 3-03 TABLET BY ity of tablet 00:00: [facility] 00 EVERY DAY Medical MONITOR Branch BLOOD PRESSURE WE DISUSSED furosemide 0 Yes TAKE 1 Unive rs 20 mg 3-03 TABLET BY ity of tablet 00:00: [facility] 00 EVERY DAY Medical MONITOR Branch BLOOD PRESSURE WE DISUSSED furosemide 0 Yes TAKE 1 Unive rs 20 mg 3-03 TABLET BY ity of tablet 00:00: [facility] 00 EVERY DAY Medical MONITOR Branch BLOOD PRESSURE WE DISUSSED furosemide 2021-0 Yes TAKE 1 Unive rs 20 mg 3-03 TABLET BY ity of tablet 00:00: [facility] 00 EVERY DAY Medical MONITOR Branch BLOOD PRESSURE WE DISUSSED furosemide 2021-0 Yes TAKE 1 Unive rs 20 mg 3-03 TABLET BY ity of tablet 00:00: [facility] 00 EVERY DAY Medical MONITOR Branch BLOOD PRESSURE WE DISUSSED furosemide 2021-0 Yes TAKE 1 Unive rs 20 mg 3-03 TABLET BY ity of tablet 00:00: [facility] 00 EVERY DAY Medical MONITOR Branch BLOOD PRESSURE WE DISUSSED furosemide 2021-0 Yes TAKE 1 Unive rs 20 mg 3-03 TABLET BY ity of tablet 00:00: [facility] 00 EVERY DAY Medical MONITOR Branch BLOOD PRESSURE WE DISUSSED atorvastati 2022-0 Yes 40mg Take 40 mg Univers n 40 mg 1-21 by mouth ity of tablet 00:00: daily. [facility] Branch atorvastati 0 Yes 40mg Take 40 mg Univers n 40 mg 1-21 by mouth ity of tablet 00:00: daily. [facility] Branch atorvastati 2021-0 Yes 40mg Take 40 mg Univers n 40 mg 1-21 by mouth ity of tablet 00:00: daily. [facility] Branch atorvastati 2021-0 Yes 40mg Take 40 mg Univers n 40 mg 1-21 by mouth ity of tablet 00:00: daily. [facility] Branch atorvastati 0 Yes 40mg Take 40 mg Univers n 40 mg 1-21 by mouth ity of tablet 00:00: daily. [place] [facility] Branch atorvastati 0 Yes 40mg Take 40 mg Univers n 40 mg 1-21 by mouth ity of tablet 00:00: daily. [facility] atorvastati 0 Yes 40mg Take 40 mg Univers n 40 mg 1-21 by mouth ity of tablet 00:00: daily. [facility] Branch atorvastati 0 Yes 40mg Take 40 mg Univers n 40 mg 1-21 by mouth ity of tablet 00:00: daily. [place] [facility] Branch atorvastati 0 Yes 40mg Take 40 mg Univers n 40 mg 1-21 by mouth ity of tablet 00:00: daily. [place] [facility] Branch atorvastati 2021-0 Yes 40mg Take 40 mg Univers n 40 mg 1-21 by mouth ity of tablet 00:00: daily. [facility] Branch atorvastati 0 Yes 40mg Take 40 mg Univers n 40 mg 1-21 by mouth ity of tablet 00:00: daily. [place] [facility] Branch atorvastati 2021-0 Yes 40mg Take 40 mg Univers n 40 mg 1-21 by mouth ity of tablet 00:00: daily. [place] [facility] Branch atorvastati 2021-0 Yes 40mg Take 40 mg Univers n 40 mg 1-21 by mouth ity of tablet 00:00: daily. [place] [facility] atorvastati 2021-0 Yes 40mg Take 40 mg Univers n 40 mg 1-21 by mouth ity of tablet 00:00: daily. Medical Branch atorvastati 2021-0 Yes 40mg Take 40 mg Univers n 40 mg 1-21 by mouth ity of tablet 00:00: daily. Medical Branch atorvastati 2021-0 Yes 40mg Take 40 mg Univers n 40 mg 1-21 by mouth ity of tablet 00:00: daily. Medical Branch atorvastati 2021-0 Yes 40mg Take 40 mg Univers n 40 mg 1-21 by mouth ity of tablet 00:00: daily. Medical Branch atorvastati 2021-0 Yes 40mg Take 40 mg Univers n 40 mg 1-21 by mouth ity of tablet 00:00: daily. Medical Branch atorvastati 2021-0 Yes 40mg Take 40 mg Univers n 40 mg 1-21 by mouth ity of tablet 00:00: daily. [place] Medical Branch nebivoloL 2021-0 Yes TAKE 1 Univer s 10 mg 1-11 TABLET BY ity of tablet 00:00: [facility] EVERY DAY Medical Branch nebivoloL 2-0 Yes TAKE 1 Univer s 10 mg 1-11 TABLET BY ity of tablet 00:00: [facility] EVERY DAY Medical Branch nebivoloL 2-0 Yes TAKE 1 Univer s 10 mg 1-11 TABLET BY ity of tablet 00:00: [facility] EVERY DAY Medical Branch nebivoloL 2-0 Yes TAKE 1 Univer s 10 mg 1-11 TABLET BY ity of tablet 00:00: [facility] EVERY DAY Medical Branch nebivoloL 2-0 Yes TAKE 1 Univer s 10 mg 1-11 TABLET BY ity of tablet 00:00: [facility] EVERY DAY Medical Branch nebivoloL 2-0 Yes TAKE 1 Univer s 10 mg 1-11 TABLET BY ity of tablet 00:00: [facility] EVERY DAY Medical Branch nebivoloL 2-0 Yes TAKE 1 Univer s 10 mg 1-11 TABLET BY ity of tablet 00:00: [facility] EVERY DAY Medical Branch nebivoloL 2-0 Yes TAKE 1 Univer s 10 mg 1-11 TABLET BY ity of tablet 00:00: [facility] EVERY DAY Medical Branch nebivoloL 2-0 Yes TAKE 1 Univer s 10 mg 1-11 TABLET BY ity of tablet 00:00: MOUTH [place] 00 EVERY DAY Medical Branch nebivoloL 0 Yes TAKE 1 Univer s 10 mg 1-11 TABLET BY ity of tablet 00:00: MOUTH [place] 00 EVERY DAY Medical Branch nebivoloL 2021-0 Yes TAKE 1 Univer s 10 mg 1-11 TABLET BY ity of tablet 00:00: MOUTH [place] 00 EVERY DAY Medical Branch nebivoloL 2021-0 Yes TAKE 1 Univer s 10 mg 1-11 TABLET BY ity of tablet 00:00: MOUTH [place] 00 EVERY DAY Medical Branch nebivoloL 2021-0 2022- No TAKE 1 Unive rs 10 mg 1-11 10-27 TABLET BY ity of tablet 00:00: 00:00 MOUTH [place] 00 :00 EVERY DAY Medical Branch nebivoloL 2021-0 2021- No TAKE 1 Unive rs 10 mg 1-11 10-27 TABLET BY ity of tablet 00:00: 00:00 MOUTH [place] 00 :00 EVERY DAY Medical Branch ergocalcife 2020-0 Yes [id number] Take 1 Univers rol, 9-07 capsule by ity of vitamin d2, 00:00: mouth [place] 1,250 mcg 00 weekly. Medical (50,000 Branch unit) capsule ergocalcife 2021-0 Yes [id number] Take 1 Univers rol, 9-07 capsule by ity of vitamin d2, 00:00: mouth [place] 1,250 mcg 00 weekly. Medical (50,000 Branch unit) capsule ergocalcife 2021-0 Yes [id number] Take 1 Univers rol, 9-07 capsule by ity of vitamin d2, 00:00: mouth [place] 1,250 mcg 00 weekly. Medical (50,000 Branch unit) capsule ergocalcife 2021-0 Yes [id number] Take 1 Univers rol, 9-07 capsule by ity of vitamin d2, 00:00: mouth [place] 1,250 mcg 00 weekly. Medical (50,000 Branch unit) capsule ergocalcife 2021-0 Yes [id number] Take 1 Univers rol, 9-07 capsule by ity of vitamin d2, 00:00: mouth [place] 1,250 mcg 00 weekly. Medical (50,000 Branch unit) capsule ergocalcife 2021-0 Yes [id number] Take 1 Univers rol, 9-07 capsule by ity of vitamin d2, 00:00: mouth [place] 1,250 mcg 00 weekly. Medical (50,000 Branch unit) capsule ergocalcife 2021-0 Yes [id number] Take 1 Univers rol, 9-07 capsule by ity of vitamin d2, 00:00: mouth [place] 1,250 mcg 00 weekly. Medical (50,000 Branch unit) capsule ergocalcife 2021-0 Yes [id number] Take 1 Univers rol, 9-07 capsule by ity of vitamin d2, 00:00: mouth [place] 1,250 mcg 00 weekly. Medical (50,000 Branch unit) capsule ergocalcife 2021-0 Yes [id number] Take 1 Univers rol, 9-07 capsule by ity of vitamin d2, 00:00: mouth [place] 1,250 mcg 00 weekly. Medical (50,000 Branch unit) capsule ergocalcife 2021-0 Yes [id number] Take 1 Univers rol, 9-07 capsule by ity of vitamin d2, 00:00: mouth [place] 1,250 mcg 00 weekly. Medical (50,000 Branch unit) capsule ergocalcife 2021-0 Yes [id number] Take 1 Univers rol, 9-07 capsule by ity of vitamin d2, 00:00: mouth [place] 1,250 mcg 00 weekly. Medical (50,000 Branch unit) capsule ergocalcife 2021-0 Yes [id number] Take 1 Univers rol, 9-07 capsule by ity of vitamin d2, 00:00: mouth [place] 1,250 mcg 00 weekly. Medical (50,000 Branch unit) capsule ergocalcife 2021-0 Yes [id number] Take 1 Univers rol, 9-07 capsule by ity of vitamin d2, 00:00: mouth [place] 1,250 mcg 00 weekly. Medical (50,000 Branch unit) capsule ergocalcife 2021-0 Yes [id number] Take 1 Univers rol, 9-07 capsule by ity of vitamin d2, 00:00: mouth [place] 1,250 mcg 00 weekly. Medical (50,000 Branch unit) capsule ergocalcife 2021-0 Yes [id number] Take 1 Univers rol, 9-07 capsule by ity of vitamin d2, 00:00: mouth [place] 1,250 mcg 00 weekly. Medical (50,000 Branch unit) capsule ergocalcife 2021-0 Yes [id number] Take 1 Univers rol, 9-07 capsule by ity of vitamin d2, 00:00: mouth [place] 1,250 mcg 00 weekly. Medical (50,000 Branch unit) capsule ergocalcife 2021-0 Yes [id number] Take 1 Univers rol, 9-07 capsule by ity of vitamin d2, 00:00: mouth [place] 1,250 mcg 00 weekly. Medical (50,000 Branch unit) capsule ergocalcife 2021-0 Yes [id number] Take 1 Univers rol, 9-07 capsule by ity of vitamin d2, 00:00: mouth [place] 1,250 mcg 00 weekly. Medical (50,000 Branch unit) capsule ergocalcife 2021-0 Yes [id number] Take 1 Univers rol, 9-07 capsule by ity of vitamin d2, 00:00: mouth [place] 1,250 mcg 00 weekly. Medical (50,000 Branch unit) capsule lisinopril 2020-0 Yes 40mg Take 40 mg U nivers 40 mg 9- by mouth ity of tablet 11:11: daily. [address] Branch amLODIPine 0 Yes 10mg Take 10 mg U nivers (NORVASC) 9-01 by mouth ity of 10 mg 11:11: daily. [facility] 05 [facility] Branch lisinopril 2020-0 Yes 40mg Take 40 mg U nivers 40 mg - by mouth ity of tablet 11:11: daily. [address] Branch amLODIPine 2020-0 Yes 10mg Take 10 mg U nivers (NORVASC) 9-01 by mouth ity of 10 mg 11:11: daily. [facility] 05 [facility] Branch amLODIPine 2020-0 Yes 10mg Take 10 mg U nivers (NORVASC) 9-01 by mouth ity of 10 mg 11:11: daily. [place] tablet 05 [facility] Branch amLODIPine 2020-0 Yes 10mg Take 10 mg U nivers (NORVASC) 9-01 by mouth ity of 10 mg 11:11: daily. [place] tablet 05 [facility] Branch amLODIPine 2020-0 Yes 10mg Take 10 mg U nivers (NORVASC) 9-01 by mouth ity of 10 mg 11:11: daily. [facility] 05 [facility] amLODIPine 2020-0 Yes 10mg Take 10 mg U nivers (NORVASC) 9- by mouth ity of 10 mg 11:11: daily. [place] tablet 05 Medical Branch amLODIPine 0 Yes 10mg Take 10 mg U nivers (NORVASC) 9- by mouth ity of 10 mg 11:11: daily. [place] tablet 05 Medical Branch amLODIPine 0 Yes 10mg Take 10 mg U nivers (NORVASC) 9- by mouth ity of 10 mg 11:11: daily. [place] tablet 05 Medical Branch amLODIPine 0 Yes 10mg Take 10 mg U nivers (NORVASC) 9- by mouth ity of 10 mg 11:11: daily. [place] tablet 05 Medical Branch amLODIPine 0 Yes 10mg Take 10 mg U nivers (NORVASC) 9- by mouth ity of 10 mg 11:11: daily. [place] tablet 05 Medical Branch amLODIPine 0 Yes 10mg Take 10 mg U nivers (NORVASC) 9- by mouth ity of 10 mg 11:11: daily. [place] tablet 05 Medical Branch amLODIPine 0 Yes 10mg Take 10 mg U nivers (NORVASC) 9- by mouth ity of 10 mg 11:11: daily. [place] tablet 05 Medical Branch amLODIPine 0 Yes 10mg Take 10 mg U nivers (NORVASC) 9- by mouth ity of 10 mg 11:11: daily. [place] tablet 05 Medical Branch amLODIPine 0 Yes 10mg Take 10 mg U nivers (NORVASC) 9- by mouth ity of 10 mg 11:11: daily. [place] tablet 05 Medical Branch amLODIPine 2020-0 Yes 10mg Take 10 mg U nivers (NORVASC) 9-01 by mouth ity of 10 mg 11:11: daily. [place] tablet 05 Medical Branch amLODIPine 2020-0 Yes 10mg Take 10 mg U nivers (NORVASC) 9-01 by mouth ity of 10 mg 11:11: daily. [place] tablet 05 Medical Branch amLODIPine 2020-0 Yes 10mg Take 10 mg U nivers (NORVASC) 9-01 by mouth ity of 10 mg 11:11: daily. [place] tablet 05 Medical Branch amLODIPine 2020-0 Yes 10mg Take 10 mg U nivers (NORVASC) 9-01 by mouth ity of 10 mg 11:11: daily. [facility] 05 [facility] amLODIPine 2020-0 Yes 10mg Take 10 mg U nivers (NORVASC) 9-01 by mouth ity of 10 mg 11:11: daily. [facility] 05 [facility] Branch aspirin 81 2020-0 Yes 81mg Take 81 mg U nivers mg chewable 9-01 by mouth ity of tablet 11:11: daily. [address] aspirin 81 2020-0 Yes 81mg Take 81 mg U nivers mg chewable 9-01 by mouth ity of tablet 11:11: daily. [address] aspirin 81 2020-0 Yes 81mg Take 81 mg U nivers mg chewable 9-01 by mouth ity of tablet 11:11: daily. [address] aspirin 81 2020-0 Yes 81mg Take 81 mg U nivers mg chewable 9-01 by mouth ity of tablet 11:11: daily. [address] aspirin 81 2020-0 Yes 81mg Take 81 mg U nivers mg chewable 9-01 by mouth ity of tablet 11:11: daily. [address] aspirin 81 2020-0 Yes 81mg Take 81 mg U nivers mg chewable 9-01 by mouth ity of tablet 11:11: daily. [address] aspirin 81 2020-0 Yes 81mg Take 81 mg U nivers mg chewable 9-01 by mouth ity of tablet 11:11: daily. [address] aspirin 81 2020-0 Yes 81mg Take 81 mg U nivers mg chewable 9-01 by mouth ity of tablet 11:11: daily. [address] aspirin 81 2020-0 Yes 81mg Take 81 mg U nivers mg chewable 9-01 by mouth ity of tablet 11:11: daily. [address] aspirin 81 2020-0 Yes 81mg Take 81 mg U nivers mg chewable 9-01 by mouth ity of tablet 11:11: daily. [address] aspirin 81 2020-0 Yes 81mg Take 81 mg U nivers mg chewable 9-01 by mouth ity of tablet 11:11: daily. [address] aspirin 81 2020-0 Yes 81mg Take 81 mg U nivers mg chewable 9-01 by mouth ity of tablet 11:11: daily. [address] aspirin 81 2021-0 Yes 81mg Take 81 mg U nivers mg chewable 9-01 by mouth ity of tablet 11:11: daily. [address] aspirin 81 2021-0 Yes 81mg Take 81 mg U nivers mg chewable 9-01 by mouth ity of tablet 11:11: daily. [address] aspirin 81 202-0 Yes 81mg Take 81 mg U nivers mg chewable 9-01 by mouth ity of tablet 11:11: daily. [address] aspirin 81 2021-0 Yes 81mg Take 81 mg U nivers mg chewable 9-01 by mouth ity of tablet 11:11: daily. [address] aspirin 81 2021-0 Yes 81mg Take 81 mg U nivers mg chewable 9-01 by mouth ity of tablet 11:11: daily. [address] aspirin 81 202-0 Yes 81mg Take 81 mg U nivers mg chewable 9-01 by mouth ity of tablet 11:11: daily. [address] aspirin 81 202-0 Yes 81mg Take 81 mg U nivers mg chewable 9-01 by mouth ity of tablet 11:11: daily. [address] Immunizations Ordered Filled Immunization Date Status Comments [facility] e Immunization Name Name Influenza Virus 2022-05-19 Completed Universit y of Vaccine [facility] IM, 00:00:00 [facility] dical Preserv and ABX Branch Free 6 MO-64 YRS Influenza Virus 2022-05-19 Completed Universit y of Vaccine [place] IM, 00:00:00 [facility] dical Preserv and ABX Branch Free 6 MO-64 YRS Influenza Virus 2022-05-19 Completed Universit y of Vaccine [place] IM, 00:00:00 [place] Me dical Preserv and ABX Branch Free 6 MO-64 YRS Influenza Virus 2022-05-19 Completed Universit y of Vaccine Quad IM, 00:00:00 [place] Me dical Preserv and ABX Branch Free 6 MO-64 YRS Influenza Virus 2022-05-19 Completed Universit y of Vaccine Quad IM, 00:00:00 [place] Me dical Preserv and ABX Branch Free 6 MO-64 YRS Influenza Virus 2022-05-19 Completed Universit y of Vaccine [facility] IM, 00:00:00 [facility] dical Preserv and ABX Branch Free 6 MO-64 YRS Vital Signs Vital Name Observation Time Observation Value Comments Source Systolic blood 2022-05-19 17:18:00 150 mm[Hg] Univer sity of pressure [facility] Diastolic blood 2022-05-19 17:18:00 69 mm[Hg] Unive rsity of [facility] Heart rate 2022-05-19 17:17:00 58 /min [facility] Body temperature 2022-05-19 17:17:00 37.11 Nehal [facility] Body height 2022-05-19 17:17:00 170.2 cm [facility] Body weight 2022-05-19 17:17:00 68.04 kg [facility] BMI 2022-05-19 17:17:00 23.49 kg/m2 [facility] Oxygen saturation in 2022-05-19 17:17:00 98 /min [facility] blood by [facility] Pulse oximetry Branch Procedures Procedure Date / Time Performing Clinician Source Performed URINALYSIS 2022-06-21 14:01:00 Susy Hernandez [facility] PHYSICIAN ORDERS 2022-06-21 06:01:00 Doctor [place], [facility] Name [facility] FLU VACC ([id number]), 6 2022-05-19 17:26:04 Kayode [facility] [place]-64 YRS, .5ML, IM, QUAD Medica l Branch (FLUCELVAX) INSURANCE CORRESPONDENCE 2022-05-03 05:01:00 Doctor [place], [facility] Name [facility] CBC WITH DIFF 2022-03-29 14:10:00 Susy Hernandez [facility] PHYSICIAN ORDERS 2022-03-29 05:01:00 Doctor Indio [facility] Name [facility] Injection procedure for 2017-05-18 18:26:00 Hussein Holden shoulder arthrography or enhanced CT/MRI shoulder arthrography Encounters Start End Encounter Admission Attending Care Care Encounter Source Date/Time Date/Time Type Type Clinicians Facility Department ID 2021-05-24 Emergency [facility] [id number] Univers 21:54:56 ity of [facility] 2021-05-24 Emergency [facility] [id number] Univers 17:13:06 ity of [facility] 2021-05-23 Outpatient R MASSIMO [facility] PATRICK [id number] Univers 07:16:18 [place] ity of [facility] 2022-06-21 2022-06-21 Chief Vendor Quality Nathanael, Ahsan [facility] [id number] Univers 07:45:00 08:00:00 [facility] [id number] 10 [id number] [id number] [place] [address] BUILDING 2022-06-21 2022-06-21 Outpatient R DAVID [facility] [id number] Univers 07:45:00 07:45:00 [facility] 2022-06-21 2022-06-21 Orders Doctor VIOLETTA [id number] Univers 00:00:00 00:00:00 Only Unassigned, SATHISH [id number] ity of [place] [facility] [id number] Madhu as [id number] [address] 2022-06-14 2022-06-14 [facility] [id number] Univers 00:00:00 00:00:00 [facility] [id number] it y of [place] [id number] Madhu as KENN?BLEA [id number] [place] [address] MEDICAL OFFICE BUILDING 2022-05-19 2022-05-19 [facility] [id number] Univers 12:15:00 12:32:01 KAYODE itlorenzo [facility] 2022-05-19 2022-05-19 [facility] [id number] Univers 12:15:00 12:32:01 Visit [facility] [id number] it y of [place] [id number] Madhu as KENN?BLEA [id number] [address] MEDICAL OFFICE [facility] 2022-05-19 2022-05-19 Letter Pereira [facility] 1.2.840.114 [id number] Univers 00:00:00 00:00:00 (Out) [facility] 350.1.13.10 it y of [place] 4.2.7.2.686 Madhu as KENN?BLEA [phone] [address] OFFICE [facility] 2022-05-19 2022-05-19 Telephone [facility] 1.2.329.027 [id number] Univers 00:00:00 00:00:00 [facility] 350.1.13.10 it y of [place] 4.2.7.2.686 Madhu as KENN?BLEA [id number] [address] OFFICE [facility] 2022-05-11 2022-05-11 Refill [facility] 1.2.840.114 [id number] Univers 00:00:00 00:00:00 [facility] 350.1.13.10 it [facility] 4.2.7.2.686 Madhu as KENN?BLEA [phone] [address] OFFICE [facility] 2022-05-03 2022-05-03 Orders Doctor VIOLETTA 1.2.840.114 [id number] Univers 00:00:00 00:00:00 Only Unassigned, SATHISH 350.1.13.10 ity of [place] [facility] 4.2.7.2.686 Madhu as [id number] [address] 2022-04-20 2022-04-20 Refill [facility] 1.2.840.114 [id number] Univers 00:00:00 00:00:00 [facility] 350.1.13.10 it y of [place] 4.2.7.2.686 Madhu as KENN?BLEA [phone] [address] OFFICE [facility] 2022-04-15 2022-04-15 Chief Vendor Quality Ahsan Huffman Lab Main [facility] 1.2.8 40.114 [id number] Univers 12:45:00 13:00:00 Visit Susy Hernandez [facility] 350.1.13. 10 ity of [place].2.[place] [id number] [address] 2022-04-15 2022-04-15 Outpatient R DAVID [facility] [id number] Univers 12:45:00 12:45:00 [facility] 2022-04-14 2022-04-14 Refill [facility] 1.2.840.114 [id number] Univers 00:00:00 00:00:00 [facility] 350.1.13.10 it y of [place] 4.2.7.2.686 Madhu as KENN?BLEA [phone] [address] OFFICE [facility] 2022-03-29 2022-03-29 Chief Vendor Quality Nathanael, Adc Lab Main [facility] 1.2.8 40.114 [id number] Univers 08:30:00 08:45:00 Visit Susy Hernandez [facility] 350.1.13. 10 ity of [place] [phone] [address] 2022-03-29 2022-03-29 Outpatient R DAVID [facility] [id number] Univers 08:30:00 08:30:00 [facility] turner o [facility] 2022-03-29 2022-03-29 Telephone [facility] 1.2.602.049 [id number] Univers 00:00:00 00:00:00 [facility] 350.1.13.10 it y of [place] 4.2.7.2.686 Madhu as KENN?BLEA [phone] [address] MEDICAL OFFICE [facility] 2022-03-29 2022-03-29 Orders Doctor SHIPLEY 1.2.840.114 [id number] Univers 00:00:00 00:00:00 Only Unassigned, SATHISH 350.1.13.10 ity of [place] [facility] 4.2.7.2.686 Madhu as [phone] [address] 2022-03-24 2022-03-24 Referick [facility] 1.2.840.114 [id number] Univers 00:00:00 00:00:00 [facility] 350.1.13.10 it y of [place] 4.2.7.2.686 Madhu as KENN?BLEA [phone] [place] he[place] CURTIS [address] [place] [address] OFFICE [facility] 2022-03-01 2022-03-01 Golconda [facility] 1.2.703.164 [id number] Univers 00:00:00 00:00:00 [facility] 350.1.13.10 it y of [place] 4.2.7.2.686 Madhu as KENN?BLEA [phone] [place] vipulnd [address] OFFICE [facility] 2022-02-24 2022-02-24 [place]a [facility] 1.2.401.772 [id number] Univers 00:00:00 00:00:00 [facility] 350.1.13.10 it y of [place] 4.2.7.2.686 Madhu as KENN?BLEA [phone] [facility] [address] 2022-02-17 2022-02-17 Jan [facility] 1.2.840.114 [id number] Univers 00:00:00 00:00:00 [facility] 350.1.13.10 it y of [place] 4.2.7.2.686 Madhu as KENN?BLEA [id number] [place] he[place] CURTIS [address] [place] [address] OFFICE [facility] 2022-02-16 2022-02-16 [place]a [facility] 1.2.262.002 [id number] Univers 00:00:00 00:00:00 [facility] 350.1.13.10 it y of [place] 4.2.7.2.686 Madhu as KENN?BLEA [phone] [facility] [address] OFFICE [facility] 2022-02-16 2022-02-16 Letter [facility] 1.2.840.114 [id number] 62 Univers 00:00:00 00:00:00 (Out) [facility] 350.1.13.10 it y of [place] 4.2.7.2.686 Madhu as KENN?BLEA [phone] [place] [address] [place] MEDICAL OFFICE BUILDING 2022-02-15 2022-02-15 [facility] [id number] Univers 10:00:00 10:00:00 CHRISTINA pruett [facility] 2022-02-15 2022-02-15 Laboratory Only, Ang Db Test [facility] 1.2.8 40.114 [id number] Univers 10:00:00 10:00:00 Only Chepe Christina [facility] 350.1.13.10 ity [facility] 4.2.7.2.686 Madhu as KENN?BLEA [id number] [address] OFFICE [facility] 2022-02-15 2022-02-15 Outpatient R [facility] [id number] Univers 10:00:00 09:31:54 CHRISTINA pruett [facility] 2022-02-14 2022-02-14 Outpatient R [facility] [id number] Univers 10:15:00 10:15:00 CHRISTINA maza [facility] 2022-02-11 2022-02-11 Letter VIOLETTA Jones 1.2.840.114 [id number] Univers 00:00:00 00:00:00 (Out) Jacqueline BOWER 350.1.13.10 it y of HOSPITAL 4.2.7.2.686 Madhu as [phone] [address] 2022-02-11 2022-02-11 Telephone Provider, [facility] 1.2.840.114 [id number] Univers 00:00:00 00:00:00 Ang Db HEALTH 350.1.13.10 it y of Urgent Care [place] 4.2.7.2.686 [place] KENN?BLEA [phone] [address] MEDICAL OFFICE [facility] 2022-02-10 2022-02-10 Urgent [place], [facility] 1.2.840.114 [id number] Univers 11:00:00 11:00:00 Care Henok HEALTH 350.1.13.10 it y of [place] 4.2.7.2.686 Madhu as KENN?BLEA [phone] [address] MEDICAL OFFICE [facility] 2022-02-10 2022-02-10 Outpatient R RICCI [facility] [id number] Univers 11:00:00 10:54:56 HENOK ity [facility] 2022-01-27 2022-01-27 Telephone [facility] 1.2.123.792 [id number] Univers 00:00:00 00:00:00 [facility] 350.1.13.10 it y [facility] 4.2.7.2.686 Madhu as KENN?BLEA [phone] [place] he[place] RYAN 044 [facility] 2022-01-18 2022-01-18 Chief Vendor Quality Nathanael, Adc Lab Main [facility] 1.2.8 40.114 [id number] Univers 07:45:00 08:00:00 Visit Ja Sparks 350.1.13.10 ity of [place]2.7.2.[place] [phone] [place] [address] 2022-01-18 2022-01-18 Outpatient R CLARE [facility] [id number] Univers 07:45:00 07:45:00 JA ity [facility] 2022-01-18 2022-01-18 Orders Doctor VIOLETTA 1.2.840.114 [id number] Univers 00:00:00 00:00:00 Only Unassigned, SATHISH 350.1.13.10 ity of [place] [facility] 4.2.7.2.686 Madhu as [phone] [address] 2022-01-03 2022-01-03 Telephone [facility] 1.2.354.274 [id number] Univers 00:00:00 00:00:00 [facility] 350.1.13.10 it y [facility] 4.2.7.2.686 Madhu as KENN?BLEA [phone] [place] dicedi CURTIS 044 [facility] 2021-12-21 2021-12-21 Refill [facility] 1.2.840.114 [id number] Univers 00:00:00 00:00:00 [facility] 350.1.13.10 it y [facility] 4.2.7.2.686 Madhu as KENN?BLEA [phone] [address] OFFICE [facility] 2021-12-08 2021-12-08 Telephone [facility] 1.2.325.468 [id number] Univers 00:00:00 00:00:00 [facility] 350.1.13.10 it y [facility] 4.2.7.2.686 Madhu as KENN?BLEA [phone] [address] OFFICE [facility] 2021-11-22 2021-11-22 Telephone [facility] 1.2.109.820 [id number] Univers 00:00:00 00:00:00 [facility] 350.1.13.10 it y [facility] 4.2.7.2.686 Madhu as KENN?BLEA [phone] [address] OFFICE [facility] 2021-11-06 2021-11-06 Orders Doctor VIOLETTA 1.2.840.114 [id number] Univers 00:00:00 00:00:00 Only Unassigned, SATHISH 350.1.13.10 ity of [place] [facility] 4.2.7.2.686 Madhu as [phone] [address] 2021-11-01 2021-11-01 Telephone [facility] 1.2.913.475 [id number] Univers 00:00:00 00:00:00 [facility] 350.1.13.10 it y of [place] 4.2.7.2.686 Madhu as KENN?BLEA [id number] [address] OFFICE [facility] 2021-10-14 2021-10-14 Outpatient R MICHAEL [facility] [id number] Univers 09:45:00 09:45:00 KAYODE ity [facility] 2021-10-14 2021-10-14 Office [facility] 1.2.840.114 [id number] Univers 09:45:00 09:45:00 Visit [facility] 350.1.13.10 it y [facility] 4.2.7.2.686 Madhu as KENN?BLEA [id number] [address] OFFICE [facility] 2021-10-14 2021-10-14 Outpatient Le[facility] [id number] Univers 09:45:00 09:38:09 KAYODE turner [facility] 2021-10-14 2021-10-14 Marc [facility] 1.2.840.114 [id number] Univers 00:00:00 00:00:00 (Out) [facility] 350.1.13.10 it y [facility] 4.2.7.2.686 Madhu as KENN?BLEA [phone] [place] dical KNEY 044 [facility] OFFICE [facility] 2021-10-08 2021-10-08 Chief Vendor Quality Nathanael, Adc Lab Main [facility] 1.2.8 40.114 [id number] Univers 08:15:00 08:30:00 Visit Ja Sparks 350.1.13.10 ity of [place].2.[place] [phone] [place] hema NAL 353 [facility] 2021-10-08 2021-10-08 Outpatient Leida SPARKS [facility] [id number] Univers 08:15:00 08:15:00 JA turner [facility] 2021-10-08 2021-10-08 Orders Doctor VIOLETTA 1.2.840.114 [id number] Univers 00:00:00 00:00:00 Only Unassigned, SATHISH 350.1.13.10 ity of [place] [facility] 4.2.7.2.686 Madhu as [phone] [address] 2021-09-21 2021-09-21 Orders Doctor SHIPLEY 1.2.840.114 [id number] Univers 00:00:00 00:00:00 Only Unassigned, SATHISH 350.1.13.10 ity of [place] [facility] 4.2.7.2.686 Madhu as [phone] [address] 2021-08-27 2021-08-27 Chief Vendor Quality Nathanael, Adc Lab Main [facility] 1.2.8 40.114 [id number] Univers 08:00:00 08:15:00 Visit Susy Hernandez [place] 350.1.13. 10 ity of [place].2.[place] [phone] [place] dical NAL 353 [facility] 2021-08-27 2021-08-27 Outpatient R DAVID [facility] [id number] Univers 08:00:00 08:00:00 MOHTALIBED ity o f [facility] 2021-08-27 2021-08-27 Orders Doctor VIOLETTA 1.2.840.114 [id number] Univers 00:00:00 00:00:00 Only Unassigned, SATHISH 350.1.13.10 ity of [place] [facility] 4.2.7.2.686 Madhu as [phone] [address] 2021-08-05 2021-08-05 Referick [facility] 1.2.840.114 [id number] Univers 00:00:00 00:00:00 [facility] 350.1.13.10 it y of [place] 4.2.7.2.686 Madhu as KENN?BLEA [phone] [place] dical EY 044 [facility] OFFICE [facility] 2021-08-03 2021-08-03 Chief Vendor Quality Nathanael, Adc Lab Main [facility] 1.2.8 40.114 [id number] Univers 07:30:00 07:45:00 Visit Susy Hernandez 350.1.13. 10 ity of [place].2.[place] [phone] [place] dical NAL 353 [facility] 2021-08-03 2021-08-03 Outpatient R DAVID [facility] [id number] Univers 07:30:00 07:30:00 VEENAED yue o f [facility] 2021-08-03 2021-08-03 Orders Doctor VIOLETTA 1.2.840.114 [id number] Univers 00:00:00 00:00:00 Only Unassigned, SATHISH 350.1.13.10 ity of [place] [facility] 4.2.7.2.686 Madhu as [phone] [address] 2021-07-06 2021-07-06 Chief Vendor Quality Nathanael, Adc Lab Main [facility] 1.2.8 40.114 [id number] Univers 07:33:55 07:48:55 Visit Ja Sparks 350.1.13.10 ity of Susy Hernandez Gonzalez [facility] 4.2.7.2.686 [place] PROFESSIO [id number] [place] d[place] [address] [address] [facility] 2021-07-06 2021-07-06 Outpatient R DAVID, [facility] [id number] Univers 07:30:00 07:30:00 MOHAMMED ity o f [facility] 2021-07-06 2021-07-06 Outpatient R DAVID, [facility] [id number] Univers 07:30:00 07:30:00 MOHAMMED ity o f [facility] 2021-06-25 2021-06-25 Orders Doctor VIOLETTA 1.2.840.114 [id number] Univers 00:00:00 00:00:00 Only Unassigned, SATHISH 350.1.13.10 ity of [place] [facility] 4.2.7.2.686 Madhu as [phone] [facility] [address] 2021-06-24 2021-06-24 Outpatient R RADIOLOGY [facility] [id number] Univers 14:06:34 23:59:00 ity of [facility] 2021-06-24 2021-06-24 Hospital Radiology [facility] 1.2.840.114 [id number] Univers 14:06:34 23:59:00 Encounter [place] 350.1.13.10 ity of [place].2.7.2.[place] C[place] [phone] [facility] [address] 2021-06-21 2021-06-21 [facility] Radiology [facility] 1.2.840.114 [id number] Univers 07:43:09 23:59:00 Encounter [place] 350.1.13.10 ity [facility] [place].2.7.[place] [phone] [facility] [address] 2021-06-21 2021-06-21 Chief Vendor Quality Nathanael, Ahsan Lab Main [facility] 1.2.8 40.114 [id number] Univers 07:42:04 07:57:04 Visit Susy Hernandez Gonzalezasim MACEDO 350.1.13. 10 ity [facility] 4.2.[place] [phone] [place] dicedi [facility] 353 [facility] 2021-06-21 2021-06-21 Outpatient R DAVID, [facility] [id number] Univers 07:30:00 07:30:00 SUSY turner o f [facility] 2021-06-21 2021-06-21 Outpatient R RADIOLOGY [facility] [id number] Univers 00:00:00 00:00:00 ity [facility] 2021-06-15 2021-06-15 Outpatient R MICHAEL [facility] [id number] Univers 08:30:00 08:30:[address] [facility] 2021-06-15 2021-06-15 Office [facility] 1.2.840.114 [id number] Univers 07:56:08 08:11:08 Visit [facility] 350.1.13.10 it y of [place] 4.2.7.2.686 Madhu as KENN?BLEA [phone] [address] OFFICE [facility] 2021-06-15 2021-06-15 Letter [facility] 1.2.840.114 [id number] Univers 00:00:00 00:00:00 (Out) [facility] 350.1.13.10 it y of [place] 4.2.7.2.686 Madhu as KENN?BLEA [id number] [address] OFFICE [facility] 2021-06-08 2021-06-08 Telephone Michael [facility] 1.2.720.477 [id number] Univers 00:00:00 00:00:00 [facility] 350.1.13.10 it y of [place] 4.2.7.2.686 Madhu as KENN?BLEA [id number] [address] OFFICE [facility] 2021-06-07 2021-06-07 Emergency X DORIAN [facility] ERT [id number] Univers 09:15:00 10:29:00 [facility] 2021-[facility]-07 2021-06-07 Emergency [facility] 1.2.840.114 [id number] Univers 09:15:00 10:29:00 Cydney MACEDO 350.1.13.10 ity of [place] 4.2.7.2.686 [facility] [phone] [facility] [address] 2021-06-07 2021-06-07 Emergency X DORIAN, [facility] ERT [id number] Univers 09:15:00 10:29:00 CYDNEY ity of [facility] 2021-05-31 2021-05-31 Jan [facility] 1.2.840.114 [id number] Univers 00:00:00 00:00:00 [facility] 350.1.13.10 it y of [place] 4.2.7.2.686 Madhu as KENN?BLEA [phone] [place] he[place] CURTIS [address] [place] [address] MEDICAL OFFICE BUILDING 2021-05-21 2021-05-21 Orders Doctor SHIPLEY 1.2.840.114 [id number] Univers 00:00:00 00:00:00 Only Unassigned, SATHISH 350.1.13.10 ity of [place] [facility] 4.2.7.2.686 Madhu as [phone] [facility] [address] [place] 2021-05-14 2021-05-14 Orders Doctor VIOLETTA 1.2.840.114 [id number] Univers 00:00:00 00:00:00 Only Unassigned, SATHISH 350.1.13.10 ity of [place] [facility]OS[facility]ITAL 4.2.7.2.686 Madhu as [phone] [facility] [address] [place] 2021-05-04 2021-05-04 [facility] 1.2.840.114 [id number] Univers 08:11:23 23:59:00 Encounter Susy Macedo 350.1.13.10 ity of Gonzalezasim Olivarez 4.2.7.2.686 [facility] [phone] [facility] [address] 2021-05-04 2021-05-04 Chief Vendor Quality Ahsan Huffman Lab Main [facility] 1.2.8 40.114 [id number] Univers 08:07:14 08:22:14 Visit Ja Sparks 350.1.13.10 ity of DavidSusyasim [place] 4.2.7.2.686 [facility] [phone] [place] hema jones 353 [facility] 2021-05-04 2021-05-04 Outpatient R DAVID [facility] [id number] Univers 00:00:00 00:00:00 SUSY yue maza seble [facility] 2021-04-20 2021-04-20 Chief Vendor Quality Nathanael, Ahsan Lab Main [facility] 1.2.8 40.114 [id number] Univers 07:36:29 07:51:29 Visit David Susy [facility] 350.1.13. 10 ity of [place].2.[place] [phone] [place] dic[address] 2021-04-20 2021-04-20 Outpatient R DAVID [facility] [id number] Univers 07:30:00 07:30:00 VEENABEBETO yue maza seble [facility] 2021-04-19 2021-04-19 Orders Doctor VIOLETTA 1.2.840.114 [id number] Univers 00:00:00 00:00:00 Only Unassigned, SATHISH 350.1.13.10 ity of [place] [facility] 4.2.7.2.686 Madhu as [phone] [address] 2021-04-08 2021-04-08 Telephone [facility] 1.2.177.771 [id number] Univers 00:00:00 00:00:00 [facility] 350.1.13.10 it y of [place] 4.2.7.2.686 Madhu as Kenn?Blea [phone] [address] Medical Office Building 2021-04-07 2021-04-07 Office [facility] 1.2.840.114 [id number] Univers 08:39:51 09:09:51 Visit [facility] 350.1.13.10 it y of [place] 4.2.7.2.686 Madhu as Kenn?Blea [phone] [address] Medical Office Building 2021-04-07 2021-04-07 Outpatient R MICHAEL [facility] [id number] Univers 09:00:00 09:00:00 KAYODE ity [facility] 2021-04-022021-04-02 Emergency [facility] 1.2.286.637 [id number] Univers 16:23:00 20:33:00 Tamera S [place] 350.1.13.10 i ty [place] [phone] [address] 2021-04-02 2021-04-02 Emergency [facility] 1.2.308.415 [id number] Univers 16:23:00 20:33:00 Tamera S [place] 350.1.13.10 i ty of [place].2.[place] [id number] [address] 2021-03-31 2021-03-31 Telephone [facility] 1.2.817.416 [id number] 3976 Univers 00:00:00 00:00:00 [facility] 350.1.13.10 it y of [place] 4.2.7.2.686 Madhu as Kenn?Blea [phone] [address] Office [facility] 2021-03-31 2021-03-31 Telephone [facility] 1.2.548.463 [id number] [id number] Univers 00:00:00 00:00:00 [facility] 350.1.13.10 it y of [place] 4.2.7.2.686 Madhu as Kenn?Blea [phone] [address] Office [facility] 2021-03-30 2021-03-30 Telephone [facility] 1.2.009.977 [id number] [id number] Univers 00:00:00 00:00:00 [facility] 350.1.13.10 it y of [place] 4.2.7.2.686 Madhu as Kenn?Blea [phone] [address] Office [facility] 2021-03-29 2021-03-29 Refill [facility] 1.2.840.114 [id number] Univers 00:00:00 00:00:00 [facility] 350.1.13.10 it y of [place] 4.2.7.2.686 Madhu as Professio [phone] Me dical nal [address] Office [facility] One 2021-03-29 2021-03-29 Jan [facility] 1.2.840.114 [id number] 40 Univers 00:00:00 00:00:00 [facility] 350.1.13.10 it y of [place] 4.2.7.2.686 Madhu as Professio [phone] [place] vipulnd nal [address] [place] [address] Office [facility] 2021-03-28 2021-03-28 Referick [facility] 1.2.840.114 [id number] Univers 00:00:00 00:00:00 [facility] 350.1.13.10 it y of [place] 4.2.7.2.686 Madhu as Kenn?Blea [phone] [place] hema curtis [address] [place] [address] Office Building 2021-03-25 2021-03-25 Transition Demetrsi Perez 1.2.840.114 [id number] Univers 00:00:00 00:00:00 of Care [place] 350.1.13.10 i ty of [place].2.[place] [id number] [facility] [address] [place] 2021-03-25 2021-03-25 Transition Demetris Perez 1.2.840.114 [id number] Univers 00:00:00 00:00:00 of Care Carol [place] 350.1.13.10 [place] [phone] [facility] [address] [place] 2021-03-14 2021-03-24 [facility] 1.2.84 0.114 [id number] Univers 12:26:00 11:09:00 Encounter Roni Duffy 350.1.13.10 [place] [phone] [facility] [address] 2021-03-14 2021-03-24 [facility] 1.2.84 0.114 [id number] Univers 12:26:00 11:09:00 Encounter Roni Duffy 350.1.13.10 [place] [phone] [facility] [address] 2021-03-20 2021-03-20 Surgery [facility] 1.2.840.114 [id number] Univers 07:30:00 08:03:00 naika Margarita Arriaga [place] 350.1.13.10 [place] [phone] [facility] [address] [place] 2021-03-20 2021-03-20 Surgery [facility] 1.2.840.114 [id number] Univers 07:30:00 08:03:00 e, Margarita Arriaga [place] 350.1.13.10 [place] [phone] [address] 2021-03-17 2021-03-17 [facility] 1.2.645.567 [id number] Univers 00:00:00 00:00:00 [facility] 350.1.13.10 it y of [place] 4.2.7.2.686 Madhu as Kenn?Blea [phone] [place] [facility] [address] [place] [address] Medical Office Building 2021-03-10 2021-03-10 Outpatient R MICHAEL [facility] [id number] Univers 09:45:00 09:45:00 KAYODE turner [facility] 2021-02-26 2021-02-26 Telephone Pereira, [facility] 1.2.891.745 [id number] Univers 00:00:00 00:00:00 [facility] 350.1.13.10 it y [place] 4.2.7.2.686 Madhu as Professio [phone] [place] [facility] jones [address] [place] [address] Office Building One 2021-02-24 2021-02-24 Outpatient R [facility] [id number] Univers 09:20:00 09:20:00 ity [facility] 2021-02-24 2021-02-24 Laboratory Lab, Adc Fam Pob I [facility] 1.2. 840.114 [id number] Univers 08:58:04 09:18:04 Only Kayode Pereira [facility] 350.1.13.10 ity of [place] 4.2.7.2.686 Madhu as Professio [phone] [facility] nal [address] [place] [address] Office [facility] 2021-02-24 2021-02-24 [facility] 1.2.840.114 [id number] Univers 00:00:00 00:00:00 (Out) [facility] 350.1.13.10 it y of [place] 4.2.7.2.686 Madhu as Professio [phone] [facility] nal [address] [place] [address] Office [facility] 2021-02-24 2021-02-24 [facility] 1.2.840.114 [id number] Univers 00:00:00 00:00:00 (Out) [facility] 350.1.13.10 it y of [place] 4.2.7.2.686 Madhu as Professio [phone] [address] One 2021-02-22 2021-02-22 Outpatient Leida PEREIRA [facility] [id number] Univers 15:15:00 15:15:00 [facility] 2021-02-22 2021-02-22 Office [facility] 1.2.840.114 [id number] Univers 14:18:49 15:08:[address] [facility] 350.1.13.10 it y of [place] 4.2.7.2.686 Madhu as Professio [phone] [address] One 2021-02-12 2021-02-12 Outpatient JOSE ALFREDO COYLE [facility] [id number] Univers 10:40:00 10:40:00 JOSE ALFREDO CARVALHO [facility] 2021-02-07 2021-02-07 Wilton Galvan [facility] 1.2.541.954 [id number] Univers 00:00:00 00:00:00 [facility] 350.1.13.10 it y of [place] 4.2.7.2.686 Madhu as Professio [phone] [address] Office [facility] 2021-02-06 2021-02-06 Wilton Galvan [facility] 1.2.417.340 [id number] Univers 00:00:00 00:00:00 [facility] 350.1.13.10 it y of [place] 4.2.7.2.686 Madhu as Professio [phone] [place] 044 [facility] One 2021-02-05 2021-02-05 Laboratory Lab, Adc Fam Pob I [facility] 1.2. 840.114 [id number] Univers 11:08:01 11:28:01 Only Cole [facility] 350.1.13.10 ity of [place] 4.2.7.2.686 Madhu as Professio [phone] [place]ical [place] 044 [facility] One 2021-02-05 2021-02-05 Outpatient R COLE [facility] [id number] Univers 11:00:00 11:00:00 INGA ity of [facility] 2020-12-28 2020-12-28 Jan [facility] 1.2.840.114 [id number] Univers 00:00:00 00:00:00 Jose Alfredo Brandt [place] 350.1.13.10 [place] [phone] [facility]92 [facility] 2020-12-07 2020-12-07 Urgent Provider, [facility] 1.2.840.114 [id number] Univers 13:04:34 13:24:34 Care Diane Rayo [facility] 350.1.13.10 ity of [place] 4.2.7.2.686 Madhu as Professio [phone] [place] dical [place]al 044 [place] Office [facility] 2020-12-07 2020-12-07 Outpatient R [facility] [id number] Univers 13:20:00 13:20:00 ity of [facility] 2020-12-07 2020-12-07 Marc Hendrickson [facility] 1.2.840.114 [id number] Univers 00:00:00 00:00:00 (Out) [facility] 350.1.13.10 it y of [place] 4.2.7.2.686 Madhu as Professio [phone] [facility] 044 [facility] One 2020-10-26 2020-10-26 Jan Carvalho [facility] 1.2.840.114 [id number] Univers 00:00:00 00:00:00 Jose Alfredo Macedo 350.1.13.10 [place] [phone] [facility] 092 [facility] 2020-10-24 2020-10-24 Chief Vendor Quality Nathanael, Ahsan Lab Main [facility] 1.2.8 40.114 [id number] Univers 08:18:22 08:33:22 Visit Kayode Pereira 350.1.13.10 [place] [phone] [facility] 353 [facility] 2020-10-24 2020-10-24 [facility] [id number] Univers 08:30:00 08:30:00 KAYODE turner [facility] 2020-10-23 2020-10-23 Urgent Provider, [facility] 1.2.840.114 [id number] Univers 07:58:19 08:18:19 Care Samantha Hendrickson 350.1.13.10 ity of [place] 4.2.7.2.686 Madhu as Professio [phone] [facility] 044 [facility] 2020-10-23 2020-10-23 Outpatient R [facility] [id number] Univers 08:00:00 08:00:00 ity [facility] 2020-10-23 2020-10-23 Telephone [facility] 1.2.958.916 [id number] Univers 00:00:00 00:00:00 [facility] 350.1.13.10 [place] 4.2.7.2.686 Madhu as Professio [phone] [facility] 044 [facility] 2020-10-21 2020-10-21 [facility] 1.2.165.940 [id number] Univers 09:23:00 12:24:00 Encounter Chaparro Macedo 350.1.13.10 [place] [phone] [facility] 071 [address] 2020-10-21 2020-10-21 Surgery Massimo [facility] 1.2.840.114 [id number] Univers 11:29:00 12:10:00 Chaparro Grace [place] 350.1.13.10 [place] [phone] [facility] 020 [address] 2020-10-21 2020-10-21 Orders Doctor VIOLETTA 1.2.840.114 [id number] Univers 00:00:00 00:00:00 Only Unassigned, SATHISH 350.1.13.10 ity of [place] [facility] 4.2.7.2.686 Madhu as [phone] [facility] 009 [address] 2020-10-20 2020-10-20 Laboratory Only, Adc Test [facility] 1.2.840. 114 [id number] Univers 08:55:32 09:10:32 Only Chaparro Tran [place] 350.1.13.1 0 [place].2.[place] [phone] [facility] 353 [address] 2020-10-20 2020-10-20 Outpatient Leida TRAN [facility] [id number] Univers 08:45:00 08:45:00 CHAPARRO turner [facility] 2020-10-16 2020-10-16 Chief Vendor Quality Nathanael, Adc Lab Main [facility] 1.2.8 40.114 [id number] Univers 13:04:04 13:19:04 Visit Kayode Pereira 350.1.13.10 [place] [phone] [facility] 353 [facility] 2020-10-16 2020-10-16 Outpatient Leida PEREIRA [facility] [id number] Univers 13:15:00 13:15:00 KAYODE turner [facility] 2020-10-16 2020-10-16 Outpatient Leida PEREIRA [facility] [id number] Univers 13:15:00 13:15:00 KAYODE turner [facility] 2020-10-16 2020-10-16 Chief Vendor Quality Nathanael, Ahsan Lab Main [facility] 1.2.8 40.114 [id number] Univers 10:28:31 10:43:31 Visit Chaparro Tran 350.1.13.1 0 [place] [phone] [place] dical [place]al 353 [facility] 2020-10-16 2020-10-16 Outpatient R MASSIMO [facility] [id number] Univers 10:15:00 10:15:00 CHAPARRO turner [facility] 2020-10-16 2020-10-16 Telephone Michael [facility] 1.2.717.980 [id number] Univers 00:00:00 00:00:00 [facility] 350.1.13.10 [place] 4.2.7.2.686 Madhu as Professio [phone] [place] dical nal 044 [place] Office [facility] 2020-09-30 2020-09-30 Orders Doctor SHIPLEY 1.2.840.114 [id number] Univers 00:00:00 00:00:00 Only Unassigned, SATHISH 350.1.13.10 ity of [place] [facility] 4.2.7.2.686 Madhu as [phone] [address] 2020-08-24 2020-08-24 Referick [facility] 1.2.840.114 [id number] Univers 00:00:00 00:00:00 Jose Alfredo Macedo 350.1.13.10 [place] [phone] [place] dical [place]al 092 [facility] 2020-07-08 2020-07-08 Referick [facility] 1.2.840.114 [id number] Univers 00:00:00 00:00:00 Jose Alfredo Macedo 350.1.13.10 [place] [phone] [place] dical nal 092 [facility] 2020-06-09 2020-06-09 Orders Doctor SHIPLEY 1.2.840.114 [id number] Univers 00:00:00 00:00:00 Only Unassigned, SATHISH 350.1.13.10 [facility] 4.2.7.2.686 Madhu as [phone] [address] 2020-05-27 2020-05-27 aJn JensenocheGILA [facility] 1.2.840.114 [id number] Univers 00:00:00 00:00:00 Jose Alfredo Macedo 350.1.13.10 [place] [phone] [address] 2020-04-24 2020-04-24 [facility] 1.2.840.114 [id number] Univers 00:00:00 00:00:00 Jose Alfredo Macedo 350.1.13.10 [place] [phone] [address] 2020-03-16 2020-03-16 [facility]oche[facility] 1.2.840.114 [id number] Univers 00:00:00 00:00:00 Jose Alfredo Macedo 350.1.13.10 [place] [phone] [address] 2020-02-21 2020-02-21 Wilton Carvalho [facility] 1.2.840.114 [id number] Univers 00:00:00 00:00:00 Jose Alfredo Macedo 350.1.13.10 [place] [phone] [address] 2020-02-20 2020-02-20 Jan [facility] 1.2.840.114 [id number] Univers 00:00:00 00:00:00 Jose Alfredo Macedo 350.1.13.10 [place] [phone] [address] 2020-01-28 2020-01-28 Referick [facility] 1.2.840.114 [id number] Univers 00:00:00 00:00:00 Jose Alfredo Brandt [place] 350.1.13.10 [place].2.[place] [phone] [place] dical nal 092 [facility] 2019-11-29 2019-11-29 Outpatient R JOSE ALFREDO CARVALHO [facility] [id number] Univers 14:00:00 14:00:00 JOSE ALFREDO CARVALHO ity of [facility] 2019-11-29 2019-11-29 Telemedici [facility] 1.2.840.114 [id number] Univers 12:03:54 12:23:54 ne Visit Jose Alfredo Brandt [place] 350.1.13.10 [place].2.[place] [phone] [place] dical nal 092 [facility] 2019-11-26 2019-11-26 Telephone [facility] 1.2.840.114 [id number] Univers 00:00:00 00:00:00 Jose Alfredo Macedo 350.1.13.10 [place].2.[place] [phone] [place] dical nal 092 [facility] 2019-11-24 2019-11-24 Refill [facility] 1.2.840.114 [id number] Univers 00:00:00 00:00:00 [facility] 350.1.13.10 ity of Surgical 4.2.7.2.686 Madhu as Specialti [phone] [place] dical es 198 [facility] 2019-09-13 2019-09-13 Orders Doctor VIOLETTA 1.2.840.114 [id number] Univers 00:00:00 00:00:00 Only Unassigned, SATHISH 350.1.13.10 ity of [place] [facility] 4.2.7.2.686 Madhu as [phone] [address] 2019-09-06 2019-09-06 Refill [facility] 1.2.840.114 [id number] Univers 00:00:00 00:00:00 [facility] 350.1.13.10 ity of Surgical 4.2.7.2.686 Madhu as Specialti [phone] Me dical es 198 [facility] 2019-08-28 2019-08-28 Refill [facility] 1.2.840.114 [id number] Univers 00:00:00 00:00:00 [facility] 350.1.13.10 it y of [place] 4.2.7.2.686 Madhu as Professio [phone] [place] dical nal 044 [place] Office [facility] 2019-08-28 2019-08-28 Referick [facility] 1.2.840.114 [id number] Univers 00:00:00 00:00:00 [facility] 350.1.13.10 ity of Surgical 4.2.7.2.686 Madhu as Specialti [phone] [place] dical es 198 [facility] 2019-08-26 2019-08-26 Telephone [facility] 1.2.364.259 [id number] Univers 00:00:00 00:00:00 [facility] 350.1.13.10 it y of [place] 4.2.7.2.686 Madhu as Professio [phone] [place] dical [place]al 044 [facility] 2019-08-19 2019-08-19 Office [facility] 1.2.840.114 [id number] Univers 12:35:11 12:50:[address] [facility] 350.1.13.10 it y of [place] 4.2.7.2.686 Madhu as Professio [phone] [place] dical nal 044 [place] Office [facility] 2019-08-19 2019-08-19 Orders Doctor VIOLETTA 1.2.840.114 [id number] Univers 00:00:00 00:00:00 Only Unassigned, SATHISH 350.1.13.10 ity of [place] [facility] 4.2.7.2.686 Madhu as [phone] [facility] 009 [place] 2019-08-19 2019-08-19 Letter [facility] 1.2.840.114 [id number] Univers 00:00:00 00:00:00 (Out) [facility] 350.1.13.10 it y of [place] 4.2.7.2.686 Madhu as Professio [phone] Me dical nal 044 [place] Office [facility] 2019-08-10 2019-08-10 [facility] 1.2.840.114 [id number] Univers 00:00:00 00:00:00 [facility] 350.1.13.10 ity of Surgical 4.2.7.2.686 Madhu as Specialti [phone] Me dical es 198 [facility] 2019-02-21 2019-02-21 [facility] 1.2.840.114 [id number] Univers 00:00:00 00:00:00 [facility] 350.1.13.10 ity of Surgical 4.2.7.2.686 Madhu as Specialti [phone] Me dical es 198 [facility] 2017-05-18 2017-05-19 Outpt Diag nullFlavo [facility] [id number] Memoria 15:45:00 04:59:00 Services r Outpatient 01 l Imaging Navin Holden 2017-05-18 2017-05-18 Outpatient Julio, [facility] [id number] 10:45:00 23:59:00 Addison Lule 2016-02-19 2016-02-20 Outpt Diag nullFlavo [facility] [id number] Memoria 16:06:00 04:59:00 Services r Outpatient 00 l Imaging Navin Holden 2016-02-19 2016-02-19 Outpatient Dorian, [facility] [id number] 11:06:00 23:59:00 Abram Spencer 00 Results Test Description Test Time Test Comments Results Result Comments Source URINALYSIS 2022-06-21 14:37:41 Test Item Value Reference Range Interpretation Comme nts APPEARANCE (test code = Clear Clear 9069887658) COLOR (test code = 9122310709) Yellow Yellow PH (test code = 2971735664) 4.8-8.0 SP GRAVITY (test code = 1.003-1.030 4027179288) GLU U QUAL (test code = Normal Normal 8813491568) BLOOD (test code = 1724771479) Negative Negative KETONES (test code = 7519388808) Negative Negative PROTEIN (test code = 2887-8) Negative Negative UROBILIN (test code = Normal Normal 5035287482) BILIRUBIN (test code = Negative Negative 8136003135) NITRITE (test code = 7397274913) Negative Negative LEUK HAYLEE (test code = Negative Negative 6380476713) RBC/HPF (test code = 9118515256) See_Comment [Automated message] The system which ge nerated this result transmit chad reference range: 0 - 3 HP F. The reference range was not used to interpret th is result as normal/abnormal . WBC/HPF (test code = 0256082449) See_Comment [Automated message] The system which ge nerated this result transmit chad reference range: 0 - 5 HP F. The reference range was not used to interpret th is result as normal/abnormal . BACTERIA (test code = Few Negative A 0087102988) MUCOUS (test code = 9720500085) Slight Negative LPF A HYAL CAST (test code = See_Comment H [Aut omated message] The 3018645519) system which ge nerated this result transmit chad reference range: <=2 LPF. The reference range was not u sed to interpret this result as normal/abnormal . Lab Interpretation (test code = Abnormal 51299-6) [facility] WITH [id number] 14:35:01 Test Item Value Reference Range Interpretation Comments WBC (test code = See_Comment [Automated 3590-2) message] The sy stem which generated this result transmitted reference range : 4.20 - 10.70 10*3/?L. The reference range was not used to interpret this result as normal/abnormal . RBC (test code = See_Comment [Automated 319-8) message] The sy stem which generated this result transmitted reference range : 4.26 - 5.52 10*6/?L. The reference range was not used to interpret this result as normal/abnormal . HGB (test code = 15.6 g/dL 12.2-16.4 718-7) HCT (test code = 47.3 % 38.4-49.3 4544-3) MCV (test code = 95.6 fL 81.7-95.6 787-2) MCH (test code = 31.5 pg 26.1-32.7 785-6) MCHC (test code = 33.0 g/dL 31.2-35 786-4) RDW-SD (test code = 45.3 fL 38.5-51.6 25427-6) RDW-CV (test code = 12.9 % 12.1-15.4 788-0) PLT (test code = See_Comment H [Automated 777-3) message] The sy stem which generated this result transmitted reference range : 150 - 328 10*3/ ?L. The reference r masood was not used to interpret this result as normal/abnormal . MPV (test code = 10.0 fL 9.8-13 43728-4) NRBC/100 WBC (test See_Comment [Automat ed code = 3767486597) message] The system which generated this result transmitted reference range : 0.0 - 10.0 /100 WBCs. The refer ence range was not u sed to interpret th is result as normal/abnormal . NRBC x10^3 (test code See_Comment [Auto mated = 9662622431) message] The s ystem which generated this result transmitted reference range : 10*3/?L. The reference range was not used to interpret this result as normal/abnormal . GRAN MAT (NEUT) % 69.1 % (test code = 770-8) IMM GRAN % (test code 0.60 % = 3958950436) LYMPH % (test code = 15.1 % 736-9) MONO % (test code = 14.1 % 5905-5) EOS % (test code = 0.7 % 713-8) BASO % (test code = 0.4 % 706-2) GRAN MAT x10^3(ANC) 6.25 10*3/uL 1.99-6.95 (test code = 8280367854) IMM GRAN x10^3 (test 0.05 10*3/uL 0-0.06 code = 1023285386) LYMPH x10^3 (test code 1.36 10*3/uL 1.09-3.23 = 731-0) MONO x10^3 (test code 1.27 10*3/uL 0.36-1.02 H = 742-7) EOS x10^3 (test code = 0.06 10*3/uL 0.06-0.53 711-2) BASO x10^3 (test code 0.04 10*3/uL 0.01-0.09 = 704-7) Lab Interpretation Abnormal (test code = 05265-1) [facility]
--- NOTE | 2022-07-08 11:42 | RAD REPORT ---
EXAM DESCRIPTION: CT - Head C Spine Mpr Wo Con - 07/08/2022 11:27 am CLINICAL HISTORY: Head and neck injury status post fall. Head and neck pain COMPARISON: None. TECHNIQUE: Computed axial tomography of the head and cervical spine was obtained. Sagittal and coronal reconstruction was performed. All CT scans are performed using dose optimization technique as appropriate and may include automated exposure control or mA/KV adjustment according to patient size. FINDINGS: An intracranial bleed is not seen. The ventricles are normal in caliber. An extra-axial fl uid collection is not noted. Mild low-density areas within periventricular, deep and subcortical white matter may represent ischem ic changes secondary to small vessel disease Fluid within the visualized sinuses and mastoids is not seen A cervical fracture is not visualized. No dislocation is noted. Moderate spondylosis C6-7 IMPRESSION: No acute intracranial abnormality is seen. A cervical fracture is not visualized. If the patient continues to have symptoms to suggest intracra nial /spinal cord pathology then MRI would be recommended
--- NOTE | 2022-07-08 11:43 | RAD REPORT ---
EXAM DESCRIPTION: RAD - Wrist Left 3 View - 07/08/2022 11:37 am CLINICAL HISTORY: Left wrist pain status post injury FINDINGS: No fracture or dislocation is seen. If the patient continues to have symptoms to suggest an occult fracture then a followup plain film se danilo in 7 days would be recommended
--- NOTE | 2022-07-08 11:43 | RAD REPORT ---
EXAM DESCRIPTION: RAD - Elbow Left 2 View - 07/08/2022 11:37 am CLINICAL HISTORY: Left elbow pain status fall. FINDINGS: Limited 2 view series No fracture or dislocation is seen. If the patient continues to have symptoms to suggest an occult fracture then a followup plain film s eries in 7 days would be recommended
--- NOTE | 2022-07-08 11:45 | RAD REPORT ---
EXAM DESCRIPTION: RAD - Hand Right 3 View - 07/08/2022 11:37 am CLINICAL HISTORY: Right hand pain status post injury FINDINGS: No fracture or dislocation is seen.
--- NOTE | 2022-07-08 12:49 | ER ---
Nurse's Notes [facility] Name: Dany Thornton Age: 62 yrs Sex: Male : 1960 Arrival Date: 07/08/2022 Time: 11:14 Bed IW2 Private MD: Kayode Rodriguez S Diagnosis: Great toe abrasion;Left elbow abrasion;Left elbow contusion;Right wrist sprain Presentation: 07/08 12:29 Chief complaint: Patient states: tripped over a curb last night and fell to the [facility] concrete. States pain in right great toe, right wrist and left elbow. Denies striking head or LOC. Coronavirus screen: Vaccine status: Patient reports receiving the 2nd dose of the covid vaccine. Client denies travel out of the [place] in the last 14 days. Ebola Screen: Patient negative for fever greater than or equal to 101.5 degrees Fahrenheit, and additional compatible Ebola Virus Disease symptoms Patient denies exposure to infectious person. Patient denies travel to an Ebola-affected area in the 21 days before illness onset. Initial Sepsis Screen: Does the patient meet any 2 criteria? No. Patient's initial sepsis screen is negative. Does the patient have a suspected source of infection? No. Patient's initial sepsis screen is negative. Risk Assessment: Do you want to hurt yourself or someone else? Patient reports no desire to harm self or others. Onset of symptoms was July 07, 2022 at 20:00. 12:29 Method Of Arrival: Ambulatory [facility] 12:29 Acuity: IRINEO 3 [facility] Triage Assessment: 12:31 General: Appears in no apparent distress. Behavior is calm, cooperative. Pain: 3 Complains of pain in lateral aspect of right wrist, lateral aspect of right hand and palmar aspect of right wrist Pain does not radiate. Pain currently is 5 out of 10 on a pain scale. Historical: - Allergies: 12:31 Benadryl; kb3 - PMHx: 12:31 Hypertension; kb3 - PSHx: 12:31 Knee replacement x2-left; Shoulder surgery-left; kb3 - Immunization history:: Adult Immunizations up to date, Client reports receiving the 2nd dose of the Covid vaccine. - Social history:: Smoking status: Patient denies any tobacco usage or history of. Screenin:45 Abuse screen: Denies threats or abuse. Denies injuries from another. Nutritional kb3 screening: No deficits noted. Tuberculosis screening: No symptoms or risk factors identified. Fall Risk 12:45 Fall Risk Fall in past 12 months (25 points). No secondary diagnosis (0 pts). No IV (0 kb3 pts). Ambulatory Aid- None/Bed Rest/Nurse Assist (0 pts). Gait- Normal/Bed Rest/Wheelchair (0 pts) Mental Status- Oriented to own ability (0 pts). Total Cisse Fall Scale indicates Low Risk Score (25-44 pts). Frequent Obs/Assesments occuring As available Patient and Family Educated on Fall Prevention Program and strategies. Assessment: 12:45 General: see triage note. kb3 12:45 Derm: Wound noted left elbow. Musculoskeletal: Reports pain in medial aspect of right kb3 hand, heel of right hand and right wrist. Vital Signs: 12:29 BP 140 / 72; Pulse 67; Resp 20; Temp 98.1; Pulse Ox 100% ; Weight 68.04 kg; Height 5 kb3 ft. 7 in. (170.18 cm); Pain 5/10; 12:29 Body Mass Index 23.49 (68.04 kg, 170.18 cm) kb3 ED Course: 11:14 Patient arrived in ED. mr 11:15 Kayode Rodriguez MD is Private Physician. mr 11:16 Nilton Horowitz PA [facility]. jmm 11:16 Shahid Cline MD is Attending Physician. jmm 11:29 CT Head C Spine In Process Unspecified. EDMS 11:37 Elbow Left 2 View In Process Unspecified. EDMS 11:38 Wrist Left (3 View) XRAY In Process Unspecified. EDMS 11:38 Hand Right 3 View XRAY In Process Unspecified. EDMS 12:31 Triage completed. kb3 12:31 Arm band placed on left wrist. kb3 12:45 Patient has correct armband on for positive identification. kb3 12:45 No provider procedures requiring assistance completed. Patient did not have IV access kb3 during this emergency room visit. 12:49 Chaparro Willett MD is Referral Physician. jmm Administered Medications: No medications were administered Medication: 12:45 VIS not applicable for this client. kb3 Outcome: 12:48 Discharge ordered by . jmm 13:30 Discharged to home ambulatory. kb3 13:30 Condition: stable 13:30 Discharge instructions given to patient, Instructed on discharge instructions, follow up and referral plans. medication usage, Demonstrated understanding of instructions, follow-up care, medications, Prescriptions given X 1. 14:15 Patient left the ED. kb3 Signatures: Dispatcher [employer] EDMS Nilton Horowitz PA PA jmm Rivera, Mary mr Camila Shelton, RN RN kb3
--- NOTE | 2022-07-08 12:49 | EDPHYS ---
Physician Documentation [facility] Name: Dany Thornton Age: 62 yrs Sex: Male : 1960 Arrival Date: 07/08/2022 Time: 11:14 Bed IW2 Private MD: Kayode Rodriguez S ED Physician Shahid Cline HPI: 07/08 11:18 This 62 yrs old Male presents to ER via Ambulatory with complaints of Fall Injury, Pain jmm All Over, Hand Injury, Skin Tear(s). 11:18 Is a 62-year-old male with history of hypertension the presents emerged department with jmm complaints of left elbow pain, right wrist pain after a fall which occurred last night. Patient states he tripped over a speed block. Also states he did hit his head. Patient states he is taking anticoagulants. Denies other injury. Historical: - Allergies: 12:31 Benadryl; kb3 - PMHx: 12:31 Hypertension; kb3 - PSHx: 12:31 Knee replacement x2-left; Shoulder surgery-left; kb3 - Immunization history:: Adult Immunizations up to date, Client reports receiving the 2nd dose of the Covid vaccine. - Social history:: Smoking status: Patient denies any tobacco usage or history of. ROS: 11:18 Constitutional: Negative for fever, chills, and weight loss, Cardiovascular: Negative jmm for chest pain, palpitations, and edema, Respiratory: Negative for shortness of breath, cough, wheezing, and pleuritic chest pain. 11:18 MS/extremity: Positive for injury or acute deformity. 11:18 All other systems are negative. Exam: 11:18 Constitutional: This is a well developed, well nourished patient who is awake, alert, jmm and in no acute distress. Head/Face: atraumatic. Eyes: EOMI, no conjunctival erythema appreciated ENT: Moist Mucus Membranes Neck: Trachea midline, Supple Chest/axilla: Normal chest wall appearance and motion. Cardiovascular: Regular rate and rhythm. No edema appreciated Respiratory: Normal respirations, no respiratory distress appreciated Back: Normal ROM 11:18 Musculoskeletal/extremity: Full range of motion appreciated of the right wrist, distal radius is tender to palpation, no snuffbox tenderness appreciated. Swelling noted to left elbow, full range of motion appreciated, compartments are soft, full radial pulse, neurovascular tact. 11:18 Skin: Abrasions noted to the right great toe, left elbow. 11:18 Neuro: Orientation: is normal, Mentation: is normal, Memory: is normal. 11:18 Psych: Behavior/mood is pleasant, cooperative. Vital Signs: 12:29 BP 140 / 72; Pulse 67; Resp 20; Temp 98.1; Pulse Ox 100% ; Weight 68.04 kg; Height 5 kb3 ft. 7 in. (170.18 cm); Pain 5/10; 12:29 Body Mass Index 23.49 (68.04 kg, 170.18 cm) kb3 MDM: 11:31 Patient medically screened. [facility] 12:04 Data reviewed: vital signs, nurses notes. Counseling: I had a detailed discussion with [facility] the patient and/or guardian regarding: the historical points, exam findings, and any diagnostic results supporting the discharge/admit diagnosis. 07/08 11:17 Order name: Wrist Left (3 View) XRAY; Complete Time: 11:47 [facility] 07/08 11:17 Order name: Hand Right 3 View XRAY; Complete Time: 11:47 [facility] 07/08 11:17 Order name: CT Head C Spine; Complete Time: 11:44 [facility] 07/08 11:37 Order name: Elbow Left 2 View; Complete Time: 11:44 [facility] 07/08 12:05 Order name: Topher wrap-joint: right wrist; Complete Time: 14:14 [facility] 07/08 12:05 Order name: Wound Care: apply bacitracin or triple abx ointment to abrasions; Complete [facility] Time: 14:14 Administered Medications: No medications were administered Disposition: 17:07 Co-signature as Attending Physician, Shahid Cline MD I agree with the assessment and rt plan of care. Disposition Summary: 07/08/22 12:48 Discharge Ordered Location: Home [facility] Condition: Stable [facility] Diagnosis - Great toe abrasion jmm - Left elbow abrasion m - Left elbow contusion jmm - Right wrist sprain [facility] Followup: [facility] - With: Private Physician - When: 2 - 3 days - Reason: Recheck today's complaints, Continuance of care, Re-evaluation by your physician Followup: [facility] - With: Chaparro Willett MD - When: 2 - 3 days - Reason: Recheck today's complaints, Continuance of care, Re-evaluation by your physician Discharge Instructions: - Discharge Summary Sheet jmm - Elbow Contusion jmm - Wrist Sprain, Adult [facility] Forms: - Medication Reconciliation Form jm - Thank You Letter te - Antibiotic Education jmm - Prescription Opioid Use charley Prescriptions: - orphenadrine citrate 100 mg Oral Tablet Sustained Release - take 1 tablet by ORAL route 2 times per day As needed; 20 tablet; Refills: 0, jmm Product Selection Permitted Signatures: Dispatcher [employer] EDMS Nilton Horowitz PA PA jmm Bradberry, Kelly, RN RN kb3 Shahid Cline MD MD rt Corrections: (The following items were deleted from the chart) 11:37 11:18 Elbow Left 3 View+RAD.[email or web address].[email or web address] ordered. EDMT EDMS
[2022-07-08] MEDS ORDERED: MUPIROCIN 2% OINT 22GM TUBE TOP ONE (13:37)
[2022-07-08 14:20] VITALS: BP 140/72; TEMP 98.1; O2SAT 100
== END 2022-07-08 14:15 | disposition home or self-care (01) ==
LOC: ER 11:08
DX: S63.501A Unspecified sprain of right wrist, initial encounter (principal); S90.411A Abrasion, right great toe, initial encounter; S50.312A Abrasion of left elbow, initial encounter; S50.02XA Contusion of left elbow, initial encounter; I10 Essential (primary) hypertension; Z88.8 Allergy status to other drugs, medicaments and biological substances; Z96.652 Presence of left artificial knee joint
CPT/HCPCS: 70450; 72125; 99283

== ENCOUNTER 2022-07-11 07:44 | Emergency (ER) | payer BC ==
--- OUTSIDE RECORDS SUMMARY | 2022-07-11 07:51 | XMS REPORT | Continuity of Care Document ---
:1960 Author Organization [facility] t Address [address] [place] [address] Care Team Providers Name Role Phone Kayode Pereira MD Primary Care Physician CHAPARRO TRAN Attending Clinician Unavailable Pob, [facility] Main Attending Clinician Unavailable Susy Hernandez MD Attending Clinician SUSY HERNANDEZ Attending Clinician Unavailable Doctor Unassigned, [place] Attending Clinician Unavailable Kayode Pereira MD Attending Clinician KAYODE PEREIRA Attending Clinician Unavailable CHRISTINA LÓPEZ Attending Clinician Unavailable Only, Bogdan Veliz Test Attending Clinician Unavailable Christina Lovelace Attending Clinician Jacqueline Jones RN Attending Clinician Unavailable Provider, [facility] Attending Clinician Unavailable Henok Sorto Attending Clinician HENOK WYNNE Attending Clinician Unavailable Ja Sparks MD Attending Clinician JA SPARKS Attending Clinician Unavailable RADIOLOGY Attending Clinician Unavailable Radiology Attending Clinician Unavailable CYDNEY ALARCON Attending Clinician Unavailable Cydney Alarcon DO Attending Clinician Tamera Michaels Attending Clinician Ana PATRICIA, Carol [place] Attending Clinician Unavailable Isabel Fitzgerald DO Attending Clinician Roni Duffy DO Attending Clinician Margarita Keane MD Attending Clinician Lab, [facility]ob I Attending Clinician Unavailable JOSE ALFREDO CARVALHO Attending Clinician Unavailable JOSE ALFREDO CARVALHO Attending Clinician Unavailable Cole YIP, Inga Attending Clinician INGA GALVAN Attending Clinician Unavailable Jose Alfredo Carvalho MD Attending Clinician Provider, [facility] Attending Clinician Unavailable Perri [facility] CODERDiane Attending Clinician Samantha Cardozo Attending Clinician Chaparro Tran MD Attending Clinician Only, Adc Test Attending Clinician Unavailable Addison Kim Attending Clinician Abram Alarcon Attending Clinician CHAPARRO TRAN Admitting Clinician Unavailable NOAH GUZMAN Admitting Clinician Unavailable CYDNEY ALARCON Admitting Clinician Unavailable Roni Duffy DO Admitting Clinician Chaparro Tran MD Admitting Clinician Payers Payer Name Policy Type Policy Number Effective Date Expiration Date S ource BCBS FED SELECT [id number] 2005 00:00:00 Problems Condition Condition Condition Status Onset Resolution Last Treating Co mments Source Name Details Category Date Date Treatment Clinician Date PUD PUD Disease Active Univers (peptic (peptic 9-15 ity of ulcer ulcer 00:00: [place] disease) disease) 00 Medica l Branch Syncope Syncope Disease Active Univers 8-24 ity of 00:00: [place] [address] Medical Branch Hyponatrem Hyponatrem Disease Active U nivers ia ia 8-22 ity of 00:00: [address] Branch M75.102 - M75.102 - Diagnosis Active 2016-02-19 Memoria UNSP UNSP 02-14 11:15:00 l ROTATR-CUF ROTATR-CUF 00:01: [place] F F 00 TEAR/RUPTR TEAR/RUPTR OF OF Active 02/15/2016 MH OPID Navin Left Left Disease Active Univers shoulder shoulder 02-07 ity of pain pain 00:00: [place] 00 Medical Branch Essential Essential Disease Active 2014-07 Uni vers hypertensi hypertensi 2-04 it y of on on 00:00: [place] 00 Medical Branch Allergies, Adverse Reactions, Alerts [...] of Chews Tobacco University of tobacco use [facility] Exposure to 2022-05-09 2022-05-19 Not sure [facility] SARS-CoV-2 00:00:00 11:45:00 [facility] (event) Branch Alcohol intake 2022-05-19 2022-05-19 0 /d University of 00:00:00 00:00:00 [facility] Tobacco use and 2016-02-08 2016-02-08 User of smokeless Un iversity of exposure 00:00:00 00:00:00 tobacco [facility] Sex [birth year] Universit y of 00:00:00 00:00:00 [facility] Smoking Status Start Date Stop Date Source Never smoked tobacco [facility] Medications Ordered Filled Start Stop Current Ordering Indication Dosage Frequency Signature Comments Components Source Medication Medication Date Date Medication? Clinician (SIG) Name Name zolpidem 10 2021-07 Yes [id number] 10mg Take 1 Univers mg tablet 1-22 [...] s: chronic pain zolpidem 10 2021-07 Yes [id number] 10mg Take 1 Univers mg tablet 1-22 [...] s: chronic pain zolpidem 10 2021-07 Yes [id number] 10mg Take 1 Univers mg tablet 1-22 [...] Indication s: chronic pain propranoloL 2021-07 Yes [id number] 10mg Take 1 Univers 10 mg 0-27 9105 tablet by ity of tablet 00:00: mouth in [place] 00 the Medical morning Branch and 1 tablet in the evening. zolpidem 10 2021-07 Yes [id number] 10mg Take 1 Univers mg tablet 0-27 tablet by ity o f 00:00: mouth at [place] 00 bedtime as Medical needed for Branch Insomnia. nebivoloL 2021-07 Yes [id number] 10mg Take 1 Un soco 10 mg 0-27 tablet by ity of tablet 00:00: mouth in [place] 00 the Medical morning. Branch hydroCHLORO 2021-07 Yes [id number] 12.5mg Take 1 Univers thiazide 0-27 tablet by ity of 12.5 mg 00:00: mouth [place] tablet 00 every Medical morning. Branch azithromyci 2021-07 Yes [id number] 250mg Z-Romel = Univers n 250 mg 0-27 500 mg day ity o f tablet 00:00: 1, then [place] 00 250 mg Medical days 2 to Branch 5. Take 500 mg day 1, then 250 mg days 2 to 5. propranoloL 2021-07 Yes [id number] 10mg Take 1 Univers 10 mg 0-27 9105 tablet by ity of tablet 00:00: mouth in [place] 00 the Medical morning Branch and 1 tablet in the evening. zolpidem 10 2021-07 Yes [id number] 10mg Take 1 Univers mg tablet 0-27 tablet by ity o f 00:00: mouth at [place] 00 bedtime as Medical needed for Branch Insomnia. nebivoloL 2021-07 Yes [id number] 10mg Take 1 Un [facility]o 10 mg 0-27 tablet by ity of tablet 00:00: mouth in [place] 00 the Medical morning. Branch hydroCHLORO 2021-07 Yes [id number] 12.5mg Take 1 Univers thiazide 0-27 tablet by ity of 12.5 mg 00:00: mouth [place] tablet 00 every Medical morning. Branch azithromyci 2021-07 Yes [id number] 250mg Z-Romel = Univers n 250 mg [...] Indication s: chronic pain propranoloL 2021-07 Yes [id number] 10mg Take 1 Univers 10 mg 0-27 9105 tablet by ity of tablet 00:00: mouth in [place] 00 the Medical morning Branch and 1 tablet in the evening. zolpidem 10 2021-07 Yes [id number] 10mg Take 1 Univers mg tablet 0-27 tablet by ity o f 00:00: mouth at [place] 00 bedtime as Medical needed for Branch Insomnia. nebivoloL 2021-07 Yes [id number] 10mg Take 1 Un [facility] 10 mg 0-27 tablet by ity of tablet 00:00: mouth in [place] 00 the Medical morning. Branch hydroCHLORO 2021-07 Yes [id number] 12.5mg Take 1 Univers thiazide 0-27 tablet by ity of 12.5 mg 00:00: mouth [place] tablet 00 every Medical morning. Branch azithromyci 2021-07 Yes [id number] 250mg Z-Romel = Univers n 250 mg 0-27 500 mg day ity o f tablet 00:00: 1, then [place] 00 250 mg Medical days 2 to Branch 5. Take 500 mg day 1, then 250 mg days 2 to 5. propranoloL 2021-07 Yes [id number] 10mg Take 1 Univers 10 mg 0-27 9105 tablet by ity of tablet 00:00: mouth in [place] 00 the Medical morning Branch and 1 tablet in the evening. zolpidem 10 2021-07 Yes [id number] 10mg Take 1 Univers mg tablet 0-27 tablet by ity o f 00:00: mouth at [place] 00 bedtime as Medical needed for Branch Insomnia. nebivoloL 2021-07 Yes [id number] 10mg Take 1 Un [facility] 10 mg 0-27 tablet by ity of tablet 00:00: mouth in [place] 00 the Medical morning. Branch hydroCHLORO 2021-07 Yes [id number] 12.5mg Take 1 Univers thiazide 0-27 tablet by ity of 12.5 mg 00:00: mouth [place] tablet 00 every Medical morning. Branch azithromyci 2021-07 Yes [id number] 250mg Z-Romel = Univers n 250 mg 0-27 500 mg day ity o f tablet 00:00: 1, then [place] 00 250 mg Medical days 2 to Branch 5. Take 500 mg day 1, then 250 mg days 2 to 5. propranoloL 2021-07 Yes [id number] 10mg Take 1 Univers 10 mg 0-27 9105 tablet by ity of tablet 00:00: mouth in [place] 00 the Medical morning Branch and 1 tablet in the evening. nebivoloL 2021-07 Yes [id number] 10mg Take 1 Un [place] 10 mg 0-27 tablet by ity of tablet 00:00: mouth in [place] 00 the Medical morning. Branch hydroCHLORO 2021-07 Yes [id number] 12.5mg Take 1 Univers thiazide 0-27 tablet by ity of 12.5 mg 00:00: mouth [place] tablet 00 every Medical morning. Branch azithromyci 2021-07 Yes [id number] 250mg Z-Romel = Univers n 250 mg 0-27 500 mg day ity o f tablet 00:00: 1, then [place] 00 250 mg Medical days 2 to Branch 5. Take 500 mg day 1, then 250 mg days 2 to 5. propranoloL 2021-07 Yes [id number] 10mg Take 1 Univers 10 mg 0-27 9105 tablet by ity of tablet 00:00: mouth in [place] 00 the Medical morning Branch and 1 tablet in the evening. nebivoloL 2021-07 Yes [id number] 10mg Take 1 Un [place] 10 mg 0-27 tablet by ity of tablet 00:00: mouth in [place] 00 the Medical morning. Branch hydroCHLORO 2021-07 Yes [id number] 12.5mg Take 1 Univers thiazide 0-27 tablet by ity of 12.5 mg 00:00: mouth [place] tablet 00 every Medical morning. Branch azithromyci 2021-07 Yes [id number] 250mg Z-Romel = Univers n 250 mg 0-27 500 mg day ity o f tablet 00:00: 1, then [place] 00 250 mg Medical days 2 to Branch 5. Take 500 mg day 1, then 250 mg days 2 to 5. propranoloL 2021-07 Yes [id number] 10mg Take 1 Univers 10 mg 0-27 9105 tablet by ity of tablet 00:00: mouth in [place] 00 the Medical morning Branch and 1 tablet in the evening. nebivoloL 2021-07 Yes [id number] 10mg Take 1 Un [place] 10 mg 0-27 tablet by ity of tablet 00:00: mouth in [place] 00 the Medical morning. Branch hydroCHLORO 2021-07 Yes [id number] 12.5mg Take 1 Univers thiazide 0-27 tablet by ity of 12.5 mg 00:00: mouth [place] tablet 00 every Medical morning. Branch azithromyci 2021-07 Yes [id number] 250mg Z-Romel = Univers n 250 mg 0-27 500 mg day ity o f tablet 00:00: 1, then [place] 00 250 mg Medical days 2 to Branch 5. Take 500 mg day 1, then 250 mg days 2 to 5. zolpidem 10 2021-07- No [id number] 10mg Take 1 Univers mg tablet 0-27 [...] (scale 4-6). Indication s: chronic pain PROPRANOLOL 2021-0 Yes [id number] TAKE 1 Univers 10 mg 9-22 9105 TABLET BY ity of tablet 00:00: MOUTH [place] 00 TWICE Medical DAILY. Branch PROPRANOLOL 2021-0 Yes [id number] TAKE 1 Univers 10 mg 9-22 9105 TABLET BY ity of tablet 00:00: MOUTH [place] 00 TWICE Medical DAILY. Branch PROPRANOLOL 2021-0 Yes [id number] TAKE 1 Univers 10 mg 9-22 9105 TABLET BY ity of tablet 00:00: MOUTH [place] 00 TWICE Medical DAILY. Branch PROPRANOLOL 2021-0 Yes [id number] TAKE 1 Univers 10 mg 9-22 9105 TABLET BY ity of tablet 00:00: MOUTH [place] 00 TWICE Medical DAILY. Branch PROPRANOLOL 2021-0 Yes [id number] TAKE 1 Univers 10 mg 9-22 9105 TABLET BY ity of tablet 00:00: MOUTH [place] 00 TWICE Medical DAILY. Branch PROPRANOLOL 2021-0 Yes [id number] TAKE 1 Univers 10 mg 9-22 9105 TABLET BY ity of tablet 00:00: MOUTH [place] 00 TWICE Medical DAILY. Branch PROPRANOLOL 2021-0 2021- No [id number] TAKE 1 Univers 10 mg 9-22 10-27 9105 TABLET BY ity of tablet 00:00: 00:00 MOUTH [place] 00 :00 TWICE Medical DAILY. Branch PROPRANOLOL 2021-0 2021- No [id number] TAKE 1 Univers 10 mg 9-22 10-27 9105 TABLET BY ity of tablet 00:00: 00:00 MOUTH [place] 00 :00 TWICE Medical DAILY. Branch HYDROcodone 2021-2021- No [id number] 1{tbl} Take 1 U nivers -acetaminop 9- 09-14 tablet by it y of hen 5-325 00:00: 04:59 mouth [place] mg tablet 00 :00 every 6 Medical (six) Branch hours as needed for Pain (scale 4-6) for up to 7 days. Indication s: chronic pain HYDROcodone 2021-2021- No [id number] 1{tbl} Take 1 U nivers -acetaminop 9-06 09-14 tablet by it y of hen 5-325 00:00: 04:59 mouth [place] mg tablet 00 :00 every 6 Medical (six) Branch hours as needed for Pain (scale 4-6) for up to 7 days. Indication s: chronic pain lisinopril 2021- No 40mg Take 40 mg Univers 40 mg 03-24 by mouth ity of tablet 15:55: 00:00 daily. [place] 02 :00 Medical Branch zolpidem 10 0 Yes [id number] 10mg Take 1 Univers mg tablet 9-01 tablet by ity o f 00:00: mouth at [place] 00 bedtime as Medical needed for Branch Insomnia. lisinopriL 0 Yes [id number] 40mg Take 1 U nivers 40 mg 9-01 tablet by ity of tablet 00:00: mouth in [place] 00 the Medical morning. Branch zolpidem 10 0 Yes [id number] 10mg Take 1 Univers mg tablet 9-01 tablet by ity o f 00:00: mouth at [place] 00 bedtime as Medical needed for Branch Insomnia. lisinopriL 0 Yes [id number] 40mg Take 1 U nivers 40 mg 9-01 tablet by ity of tablet 00:00: mouth in [place] the Medical morning. Branch zolpidem 10 0 Yes [id number] 10mg Take 1 Univers mg tablet 9-01 tablet by ity o f 00:00: mouth at [place] 00 bedtime as Medical needed for Branch Insomnia. lisinopriL 0 Yes [id number] 40mg Take 1 U nivers 40 mg 9-01 tablet by ity of tablet 00:00: mouth in [place] the Medical morning. Branch zolpidem 10 0 Yes [id number] 10mg Take 1 Univers mg tablet 9-01 tablet by ity o f 00:00: mouth at [place] 00 bedtime as Medical needed for Branch Insomnia. lisinopriL 0 Yes [id number] 40mg Take 1 U nivers 40 mg 9-01 tablet by ity of tablet 00:00: mouth in [place] 00 the Medical morning. Branch zolpidem 10 2021-0 Yes [id number] 10mg Take 1 Univers mg tablet 9-01 tablet by ity o f 00:00: mouth at [place] 00 bedtime as Medical needed for Branch Insomnia. lisinopriL 2021-0 Yes [id number] 40mg Take 1 U nivers 40 mg 9-01 tablet by ity of tablet 00:00: mouth in [place] 00 the Medical morning. Branch zolpidem 10 0 Yes [id number] 10mg Take 1 Univers mg tablet 9-01 tablet by ity o f 00:00: mouth at [place] 00 bedtime as Medical needed for Branch Insomnia. lisinopriL 2021-0 Yes [id number] 40mg Take 1 U nivers 40 mg 9-01 tablet by ity of tablet 00:00: mouth in [place] 00 the Medical morning. Branch zolpidem 10 0 Yes [id number] 10mg Take 1 Univers mg tablet 9-01 tablet by ity o f 00:00: mouth at [place] 00 bedtime as Medical needed for Branch Insomnia. lisinopriL 0 Yes [id number] 40mg Take 1 U nivers 40 mg 9-01 tablet by ity of tablet 00:00: mouth in [place] 00 the Medical morning. Branch zolpidem 10 0 Yes [id number] 10mg Take 1 Univers mg tablet 9-01 tablet by ity o f 00:00: mouth at [place] 00 bedtime as Medical needed for Branch Insomnia. lisinopriL 0 Yes [id number] 40mg Take 1 U nivers 40 mg 9-01 tablet by ity of tablet 00:00: mouth in [place] 00 the Medical morning. Branch zolpidem 10 0 Yes [id number] 10mg Take 1 Univers mg tablet 9-01 tablet by ity o f 00:00: mouth at [place] 00 bedtime as Medical needed for Branch Insomnia. lisinopriL 2021-0 Yes [id number] 40mg Take 1 U nivers 40 mg 9-01 tablet by ity of tablet 00:00: mouth in [place] 00 the Medical morning. Branch zolpidem 10 0 Yes [id number] 10mg Take 1 Univers mg tablet 9-01 tablet by ity o f 00:00: mouth at [place] 00 bedtime as Medical needed for Branch Insomnia. lisinopriL 2021-0 Yes [id number] 40mg Take 1 U nivers 40 mg 9-01 tablet by ity of tablet 00:00: mouth in [place] 00 the Medical morning. Branch zolpidem 10 2021-0 2021- No [id number] 10mg Take 1 Univers mg tablet 9- 10-27 tablet by ity of 00:00: 00:00 mouth at [place] 00 :00 bedtime as Medical needed for Branch Insomnia. lisinopriL 2021- No [id number] 40mg Take 1 Univers 40 mg 03-24 tablet by ity of tablet 00:00: 00:00 mouth in [place] 00 :00 the Medical morning. Branch zolpidem 10 2021- No [id number] 10mg Take 1 Univers mg tablet 03-24 tablet by ity of 00:00: 00:00 mouth at [place] 00 :00 bedtime as Medical needed for Branch Insomnia. lisinopriL 2021- No [id number] 40mg Take 1 Univers 40 mg 03-24 tablet by ity of tablet 00:00: 00:00 mouth in [place] 00 :00 the Medical morning. Branch HYDROcodone 2021- No [id number] 1{tbl} Take 1 U nivers -acetaminop 8-10 18 tablet by it y of hen 5-325 00:00: 04:59 mouth [place] mg tablet 00 :00 every 6 Medical (six) Branch hours as needed for Pain (scale 4-6) for up to 7 days. Indication s: chronic pain zolpidem 10 Yes [id number] 10mg Take 1 Univers mg tablet - tablet by ity o f 00:00: mouth at [place] 00 bedtime as Medical needed for Branch Insomnia. zolpidem 10 Yes [id number] 10mg Take 1 Univers mg tablet 7-28 tablet by ity o f 00:00: mouth at [place] 00 bedtime as Medical needed for Branch Insomnia. zolpidem 10 2021- No [id number] 10mg Take 1 Univers mg tablet -28 03-24 tablet by ity of 00:00: 00:00 mouth at [place] 00 :00 bedtime as Medical needed for Branch Insomnia. molnupiravi Yes [id number] 800mg Take 4 Univers r 200 mg 7-22 capsules ity of capsule 00:00: by mouth [place] 00 every 12 Medical (twelve) Branch hours. molnupiravi Yes [id number] 800mg Take 4 Univers r 200 mg 7-22 capsules ity of capsule 00:00: by mouth [place] 00 every 12 Medical (twelve) Branch hours. molnupiravi 2021-0 Yes [id number] 800mg Take 4 Univers r 200 mg 7-22 capsules ity of capsule 00:00: by mouth [place] 00 every 12 Medical (twelve) Branch hours. molnupiravi 2021-0 Yes [id number] 800mg Take 4 Univers r 200 mg 7-22 capsules ity of capsule 00:00: by mouth [place] 00 every 12 Medical (twelve) Branch hours. molnupiravi 2021-0 Yes [id number] 800mg Take 4 Univers r 200 mg 7-22 capsules ity of capsule 00:00: by mouth [place] 00 every 12 Medical (twelve) Branch hours. molnupiravi 0 Yes [id number] 800mg Take 4 Univers r 200 mg 7-22 capsules ity of capsule 00:00: by mouth [place] 00 every 12 Medical (twelve) Branch hours. molnupiravi 2021-0 Yes [id number] 800mg Take 4 Univers r 200 mg 7-22 capsules ity of capsule 00:00: by mouth [place] 00 every 12 Medical (twelve) Branch hours. molnupiravi 0 Yes [id number] 800mg Take 4 Univers r 200 mg 7-22 capsules ity of capsule 00:00: by mouth [place] 00 every 12 Medical (twelve) Branch hours. molnupiravi 0 Yes [id number] 800mg Take 4 Univers r 200 mg 7-22 capsules ity of capsule 00:00: by mouth [place] 00 every 12 Medical (twelve) Branch hours. molnupiravi 2021-0 Yes [id number] 800mg Take 4 Univers r 200 mg 7-22 capsules ity of capsule 00:00: by mouth [place] 00 every 12 Medical (twelve) Branch hours. molnupiravi 2021-0 Yes [id number] 800mg Take 4 Univers r 200 mg 7-22 capsules ity of capsule 00:00: by mouth [place] 00 every 12 Medical (twelve) Branch hours. molnupiravi 2021-0 Yes [id number] 800mg Take 4 Univers r 200 mg 7-22 capsules ity of capsule 00:00: by mouth [place] 00 every 12 Medical (twelve) Branch hours. molnupiravi 2022-0 Yes [id number] 800mg Take 4 Univers r 200 mg 7-22 capsules ity of capsule 00:00: by mouth [place] 00 every 12 Medical (twelve) Branch hours. molnupiravi 2021-0 Yes [id number] 800mg Take 4 Univers r 200 mg 7-22 capsules ity of capsule 00:00: by mouth [place] 00 every 12 Medical (twelve) Branch hours. molnupiravi 2021-0 Yes [id number] 800mg Take 4 Univers r 200 mg 7-22 capsules ity of capsule 00:00: by mouth [place] 00 every 12 Medical (twelve) Branch hours. molnupiravi 2021-0 Yes [id number] 800mg Take 4 Univers r 200 mg 7-22 capsules ity of capsule 00:00: by mouth [place] 00 every 12 Medical (twelve) Branch hours. molnupiravi 2021-0 Yes [id number] 800mg Take 4 Univers r 200 mg 7-22 capsules ity of capsule 00:00: by mouth [place] 00 every 12 Medical (twelve) Branch hours. molnupiravi 2021-0 Yes [id number] 800mg Take 4 Univers r 200 mg 7-22 capsules ity of capsule 00:00: by mouth [place] 00 every 12 Medical (twelve) Branch hours. molnupiravi 2021-0 Yes [id number] 800mg Take 4 Univers r 200 mg 7-22 capsules ity of capsule 00:00: by mouth [place] 00 every 12 Medical (twelve) Branch hours. propranoloL 2-0 Yes [id number] 10mg Take 1 Univers 10 mg 3-24 9105 tablet by ity of tablet 00:00: mouth (two) Medical times Branch daily. propranoloL 2022-0 Yes [id number] 10mg Take 1 Univers 10 mg 3-24 9105 tablet by ity of tablet 00:00: mouth (two) Medical times Branch daily. propranoloL 2022-0 Yes [id number] 10mg Take 1 [facility] 10 mg 3-24 9105 tablet by ity of tablet 00:00: mouth (two) Medical times Branch daily. propranoloL 2022-0 Yes [id number] 10mg Take 1 Univers 10 mg 3-24 9105 tablet by ity of tablet 00:00: mouth [place] (two) Medical times Branch daily. propranoloL 2022-0 Yes [id number] 10mg Take 1 Univers 10 mg 3-24 9105 tablet by ity of tablet 00:00: mouth 2 [place] 00 (two) Medical times Branch daily. propranoloL 2021-0 Yes [id number] 10mg Take 1 Univers 10 mg 3-24 9105 tablet by ity of tablet 00:00: mouth 2 [place] 00 (two) Medical times Branch daily. HYDROcodone 2021-0 Yes 1{tbl} Take 1 Un soco -acetaminop 3-24 tablet by ity of hen 5-325 00:00: mouth. [place] mg tablet 00 Medical Branch HYDROcodone 2021-2021- No 1{tbl} Take 1 U nivers -acetaminop 3-24 10-27 tablet by it y of hen 5-325 00:00: 00:00 mouth. [place] mg tablet 00 :00 Medical Branch HYDROcodone 2021-2021- No 1{tbl} Take 1 U nivers -acetaminop 3-24 10-27 tablet by it y of hen 5-325 00:00: 00:00 mouth. [place] mg tablet 00 :00 Medical Branch HYDROcodone 2021-0 2021- No 1{tbl} Take 1 U nivers -acetaminop 3-24 10-27 tablet by it y of hen 5-325 00:00: 00:00 mouth. [place] mg tablet 00 :00 Medical Branch propranoloL 2021-0 2021- No [id number] 10mg Take 1 Univers 10 mg 3-24 - 9105 tablet by ity of tablet 00:00: [...] :00 every Medical morning. Branch hydroCHLORO 2022-0 2022- No 12.5mg Take 12.5 Univers thiazide 3-11 10-27 mg by ity of 12.5 mg 00:00: 00:00 mouth [place] tablet 00 :00 every Medical morning. Branch ACETAMINOPH 2022-0 Yes [id number] TAKE 1 Univers EN-CODEINE 3-08 TABLET BY ity of 300-30 mg 00:00: MOUTH [place] tablet 00 EVERY 4 Medical HOURS Branch NEEDED FOR MODERATE PAIN OR CHRONIC PAIN ACETAMINOPH 2022-0 Yes [id number] TAKE 1 Univers EN-CODEINE 3-08 TABLET BY ity of 300-30 mg 00:00: MOUTH [place] tablet 00 EVERY 4 Medical HOURS Branch NEEDED FOR MODERATE PAIN OR CHRONIC PAIN ACETAMINOPH 2022-0 Yes [id number] TAKE 1 Univers EN-CODEINE 3-08 TABLET BY ity of 300-30 mg 00:00: MOUTH [place] tablet 00 EVERY 4 Medical HOURS Branch NEEDED FOR MODERATE PAIN OR CHRONIC PAIN ACETAMINOPH 2022-0 Yes [id number] TAKE 1 Univers EN-CODEINE 3-08 TABLET BY ity of 300-30 mg 00:00: MOUTH [place] tablet 00 EVERY 4 Medical HOURS Branch NEEDED FOR MODERATE PAIN OR CHRONIC PAIN ACETAMINOPH 2022-0 Yes [id number] TAKE 1 Univers EN-CODEINE 3-08 TABLET BY ity of 300-30 mg 00:00: MOUTH [place] tablet 00 EVERY 4 Medical HOURS Branch NEEDED FOR MODERATE PAIN OR CHRONIC PAIN ACETAMINOPH 2022-0 Yes [id number] TAKE 1 Univers EN-CODEINE 3-08 TABLET BY ity of 300-30 mg 00:00: MOUTH [place] tablet 00 EVERY 4 Medical HOURS Branch NEEDED FOR MODERATE PAIN OR CHRONIC PAIN ACETAMINOPH 2022-0 Yes [id number] TAKE 1 Univers EN-CODEINE 3-08 TABLET BY ity of 300-30 mg 00:00: MOUTH [place] tablet 00 EVERY 4 Medical HOURS Branch NEEDED FOR MODERATE PAIN OR CHRONIC PAIN ACETAMINOPH 2022-0 Yes [id number] TAKE 1 Univers EN-CODEINE 3-08 TABLET BY ity of 300-30 mg 00:00: MOUTH [place] tablet 00 EVERY 4 Medical HOURS Branch NEEDED FOR MODERATE PAIN OR CHRONIC PAIN ACETAMINOPH 2022-0 Yes [id number] TAKE 1 Univers EN-CODEINE 3-08 TABLET BY ity of 300-30 mg 00:00: MOUTH [place] tablet 00 EVERY 4 Medical HOURS Branch NEEDED FOR MODERATE PAIN OR CHRONIC PAIN ACETAMINOPH 2022-0 Yes [id number] TAKE 1 Univers EN-CODEINE 3-08 TABLET BY ity of 300-30 mg 00:00: MOUTH [place] tablet 00 EVERY 4 Medical HOURS Branch NEEDED FOR MODERATE PAIN OR CHRONIC PAIN ACETAMINOPH 2022-0 Yes [id number] TAKE 1 Univers EN-CODEINE 3-08 TABLET BY ity of 300-30 mg 00:00: MOUTH [place] tablet 00 EVERY 4 Medical HOURS Branch NEEDED FOR MODERATE PAIN OR CHRONIC PAIN ACETAMINOPH 2022-0 Yes [id number] TAKE 1 Univers EN-CODEINE 3-08 TABLET BY ity of 300-30 mg 00:00: MOUTH [place] tablet 00 EVERY 4 Medical HOURS Branch NEEDED FOR MODERATE PAIN OR CHRONIC PAIN ACETAMINOPH 2-0 2- No [id number] TAKE 1 Univers EN-CODEINE 3-08 10-27 TABLET BY ity of 300-30 mg 00:00: 00:00 MOUTH [place] tablet 00 :00 EVERY 4 Medical HOURS Branch NEEDED FOR MODERATE PAIN OR CHRONIC PAIN ACETAMINOPH 2021-0 2021- No [id number] TAKE 1 Univers EN-CODEINE 3-08 10-27 TABLET [...] MONITOR Branch BLOOD PRESSURE WE DISUSSED furosemide 2022-0 Yes TAKE 1 Unive rs 20 mg 3-03 TABLET BY ity of tablet 00:00: MOUTH [place] 00 EVERY DAY Medical MONITOR Branch BLOOD PRESSURE WE DISUSSED furosemide 0 Yes TAKE 1 Unive rs 20 mg 3-03 TABLET BY ity of tablet 00:00: MOUTH [place] 00 EVERY DAY Medical MONITOR Branch BLOOD PRESSURE WE DISUSSED furosemide 0 Yes TAKE 1 Unive rs 20 mg 3-03 TABLET BY ity of tablet 00:00: MOUTH [place] 00 EVERY DAY Medical MONITOR Branch BLOOD PRESSURE WE DISUSSED furosemide Yes TAKE 1 Unive rs 20 mg 3-03 TABLET BY ity of tablet 00:00: MOUTH [place] 00 EVERY DAY Medical MONITOR Branch BLOOD PRESSURE WE DISUSSED furosemide Yes TAKE 1 Unive rs 20 mg 3-03 TABLET BY ity of tablet 00:00: MOUTH [place] 00 EVERY DAY Medical MONITOR Branch BLOOD PRESSURE WE DISUSSED furosemide Yes TAKE 1 Unive rs 20 mg 3-03 TABLET BY ity of tablet 00:00: [facility] 00 EVERY DAY Medical MONITOR Branch BLOOD PRESSURE WE DISUSSED furosemide Yes TAKE 1 Unive rs 20 mg 3-03 TABLET BY ity of tablet 00:00: [facility] 00 EVERY DAY Medical MONITOR Branch BLOOD PRESSURE WE DISUSSED furosemide 0 Yes TAKE 1 Unive rs 20 mg 3-03 TABLET BY ity of tablet 00:00: MOUTH [place] 00 EVERY DAY Medical MONITOR Branch BLOOD PRESSURE WE DISUSSED furosemide 0 Yes TAKE 1 Unive rs 20 mg 3-03 TABLET BY ity of tablet 00:00: [facility] 00 EVERY DAY Medical MONITOR Branch BLOOD PRESSURE WE DISUSSED furosemide 0 Yes TAKE 1 Unive rs 20 mg 3-03 TABLET BY ity of tablet 00:00: MOUTH [place] 00 EVERY DAY Medical MONITOR Branch BLOOD PRESSURE WE DISUSSED furosemide 2021-0 Yes TAKE 1 Unive rs 20 mg 3-03 TABLET BY ity of tablet 00:00: [facility] 00 EVERY DAY Medical MONITOR Branch BLOOD PRESSURE WE DISUSSED furosemide 0 Yes TAKE 1 Unive rs 20 mg 3-03 TABLET BY ity of tablet 00:00: [facility] 00 EVERY DAY Medical MONITOR Branch BLOOD PRESSURE WE DISUSSED atorvastati 2022-0 Yes 40mg Take 40 mg Univers n 40 mg 1-21 by mouth ity of tablet 00:00: daily. [facility] Branch atorvastati 2021-0 Yes 40mg Take 40 mg Univers n 40 mg 1-21 by mouth ity of tablet 00:00: daily. [facility] Branch atorvastati 2021-0 Yes 40mg Take 40 mg Univers n 40 mg 1-21 by mouth ity of tablet 00:00: daily. [facility] Branch atorvastati 2021-0 Yes 40mg Take 40 mg Univers n 40 mg 1-21 by mouth ity of tablet 00:00: daily. [facility] Branch atorvastati 2021-0 Yes 40mg Take 40 mg Univers n 40 mg 1-21 by mouth ity of tablet 00:00: daily. [facility] Branch atorvastati 2021-0 Yes 40mg Take 40 mg Univers n 40 mg 1-21 by mouth ity of tablet 00:00: daily. [facility] atorvastati 2021-0 Yes 40mg Take 40 mg Univers n 40 mg 1-21 by mouth ity of tablet 00:00: daily. [facility] Branch atorvastati 2021-0 Yes 40mg Take 40 mg Univers n 40 mg 1-21 by mouth ity of tablet 00:00: daily. [facility] atorvastati 2021-0 Yes 40mg Take 40 mg Univers n 40 mg 1-21 by mouth ity of tablet 00:00: daily. [facility] atorvastati 2021-0 Yes 40mg Take 40 mg Univers n 40 mg 1-21 by mouth ity of tablet 00:00: daily. [facility] atorvastati 2021-0 Yes 40mg Take 40 mg Univers n 40 mg 1-21 by mouth ity of tablet 00:00: daily. [facility] atorvastati 2021-0 Yes 40mg Take 40 mg Univers n 40 mg 1-21 by mouth ity of tablet 00:00: daily. [facility] Branch atorvastati 2021-0 Yes 40mg Take 40 mg Univers n 40 mg 1-21 by mouth ity of tablet 00:00: daily. [facility] atorvastati 2021-0 Yes 40mg Take 40 [...] by mouth ity of tablet 00:00: daily. [place] [facility] nebivoloL 2021-0 Yes TAKE 1 Univer s 10 mg 1-11 TABLET BY ity of tablet 00:00: [facility] EVERY DAY Medical Branch nebivoloL 2-0 Yes TAKE 1 Univer s 10 mg 1-11 TABLET BY ity of tablet 00:00: [facility] EVERY DAY Medical Branch nebivoloL 2-0 Yes TAKE 1 Univer s 10 mg 1-11 TABLET BY ity of tablet 00:00: [facility] EVERY DAY Medical Branch nebivoloL 2-0 Yes TAKE 1 Univer s 10 mg 1-11 TABLET BY ity of tablet 00:00: [facility] EVERY DAY Medical Branch nebivoloL 2-0 Yes TAKE 1 Univer s 10 mg 1-11 TABLET BY ity of tablet 00:00: [facility] EVERY DAY Medical Branch nebivoloL 2-0 Yes TAKE 1 Univer s 10 mg 1-11 TABLET BY ity of tablet 00:00: [facility] EVERY DAY Medical Branch nebivoloL 2-0 Yes TAKE 1 Univer s 10 mg 1-11 TABLET BY ity of tablet 00:00: [facility] EVERY DAY Medical Branch nebivoloL 2-0 Yes TAKE 1 Univer s 10 mg 1-11 TABLET BY ity of tablet 00:00: MOUTH [place] EVERY DAY Medical Branch nebivoloL 2-0 Yes TAKE 1 Univer s 10 mg 1-11 TABLET BY ity of tablet 00:00: MOUTH [place] EVERY DAY Medical Branch nebivoloL 2021-0 Yes [...] EVERY DAY Medical Branch ergocalcife 2020-0 Yes [id number] Take 1 Univers rol, 9-07 capsule by ity of vitamin d2, 00:00: mouth [place] 1,250 mcg 00 weekly. Medical (50,000 Branch unit) capsule ergocalcife 2021-0 Yes [id number] Take 1 Univers rol, 9-07 capsule by ity of vitamin d2, 00:00: mouth [place] 1,250 mcg 00 weekly. Medical (50,000 Branch unit) capsule ergocalcife 2021-0 Yes [id number] Take 1 Univers rol, 9-07 capsule by ity of vitamin d2, 00:00: mouth [place] 1,250 mcg 00 weekly. Medical (50,000 Branch unit) capsule ergocalcife 2021-0 Yes [id number] Take 1 Univers rol, 9-07 capsule by ity of vitamin d2, 00:00: mouth [place] 1,250 mcg 00 weekly. Medical (50,000 Branch unit) capsule ergocalcife 2021-0 Yes [id number] Take 1 Univers rol, 9-07 capsule by ity of vitamin d2, 00:00: mouth [place] 1,250 mcg 00 weekly. Medical (50,000 Branch unit) capsule ergocalcife 2021-0 Yes [id number] Take 1 Univers rol, 9-07 capsule by ity of vitamin d2, 00:00: mouth [place] 1,250 mcg 00 weekly. Medical (50,000 Branch unit) capsule ergocalcife 2021-0 Yes [id number] Take 1 Univers rol, 9-07 capsule by ity of vitamin d2, 00:00: mouth [place] 1,250 mcg 00 weekly. Medical (50,000 Branch unit) capsule ergocalcife 2021-0 Yes [id number] Take 1 Univers rol, 9-07 capsule by ity of vitamin d2, 00:00: mouth [place] 1,250 mcg 00 weekly. Medical (50,000 Branch unit) capsule ergocalcife 2021-0 Yes [id number] Take 1 Univers rol, 9-07 capsule by ity of vitamin d2, 00:00: mouth [place] 1,250 mcg 00 weekly. Medical (50,000 Branch unit) capsule ergocalcife 2021-0 Yes [id number] Take 1 Univers rol, 9-07 capsule by ity of vitamin d2, 00:00: mouth [place] 1,250 mcg 00 weekly. Medical (50,000 Branch unit) capsule ergocalcife 2021-0 Yes [id number] Take 1 Univers rol, 9-07 capsule by ity of vitamin d2, 00:00: mouth [place] 1,250 mcg 00 weekly. Medical (50,000 Branch unit) capsule ergocalcife 2021-0 Yes [id number] Take 1 Univers rol, 9-07 capsule by ity of vitamin d2, 00:00: mouth [place] 1,250 mcg 00 weekly. Medical (50,000 Branch unit) capsule ergocalcife 2021-0 Yes [id number] Take 1 Univers rol, 9-07 capsule by ity of vitamin d2, 00:00: mouth [place] 1,250 mcg 00 weekly. Medical (50,000 Branch unit) capsule ergocalcife 2021-0 Yes [id number] Take 1 Univers rol, 9-07 capsule by ity of vitamin d2, 00:00: mouth [place] 1,250 mcg 00 weekly. Medical (50,000 Branch unit) capsule ergocalcife 2021-0 Yes [id number] Take 1 Univers rol, 9-07 capsule by ity of vitamin d2, 00:00: mouth [place] 1,250 mcg 00 weekly. Medical (50,000 Branch unit) capsule ergocalcife 2021-0 Yes [id number] Take 1 Univers rol, 9-07 capsule by ity of vitamin d2, 00:00: mouth [place] 1,250 mcg 00 weekly. Medical (50,000 Branch unit) capsule ergocalcife 2021-0 Yes [id number] Take 1 Univers rol, 9-07 capsule by ity of vitamin d2, 00:00: mouth [place] 1,250 mcg 00 weekly. Medical (50,000 Branch unit) capsule ergocalcife 2021-0 Yes [id number] Take 1 Univers rol, 9-07 capsule by ity of vitamin d2, 00:00: mouth [place] 1,250 mcg 00 weekly. Medical (50,000 Branch unit) capsule ergocalcife 2021-0 Yes [id number] Take 1 Univers rol, 9-07 capsule by ity of vitamin d2, 00:00: mouth [place] 1,250 mcg 00 weekly. Medical (50,000 Branch unit) capsule lisinopril 2020-0 Yes 40mg Take 40 mg U nivers 40 mg - by mouth ity of tablet 11:11: daily. [address] Branch amLODIPine 2020-0 Yes 10mg Take 10 mg U nivers (NORVASC) 9-01 by mouth ity of 10 mg 11:11: daily. [facility] 05 [facility] Branch lisinopril 2020-0 Yes 40mg Take 40 mg U nivers 40 mg -01 by mouth ity of tablet 11:11: daily. [address] amLODIPine 2020-0 Yes 10mg Take 10 mg U nivers (NORVASC) 9-01 by mouth ity of 10 mg 11:11: daily. [facility] 05 [facility] Branch amLODIPine 2020-0 Yes 10mg Take 10 mg U nivers (NORVASC) 9-01 by mouth ity of 10 mg 11:11: daily. [place] tablet 05 [facility] amLODIPine 2020-0 Yes 10mg Take 10 mg U nivers (NORVASC) 9-01 by mouth ity of 10 mg 11:11: daily. [place] tablet 05 [facility] amLODIPine 2020-0 Yes 10mg Take 10 mg U nivers (NORVASC) 9-01 by mouth ity of 10 mg 11:11: daily. [facility] 05 [facility] amLODIPine 2020-0 Yes 10mg Take 10 [...] mouth ity of 10 mg 11:11: daily. [facility] 05 [facility] amLODIPine 2020-0 Yes 10mg Take 10 mg U nivers (NORVASC) 9-01 by mouth ity of 10 mg 11:11: daily. [facility] 05 [facility] Branch aspirin 81 2020-0 Yes 81mg Take 81 mg U nivers mg chewable 9-01 by mouth ity of tablet 11:11: daily. [address] aspirin 81 2020-0 Yes 81mg Take 81 mg U nivers mg chewable 9-01 by mouth ity of tablet 11:11: daily. [address] aspirin 81 2020-0 Yes 81mg Take 81 mg U nivers mg chewable 9-01 by mouth ity of tablet 11:11: daily. [address] aspirin 81 2020-0 Yes 81mg Take 81 mg U nivers mg chewable 9-01 by mouth ity of tablet 11:11: daily. [address] aspirin 81 2020-0 Yes 81mg Take 81 mg U nivers mg chewable 9-01 by mouth ity of tablet 11:11: daily. [address] aspirin 81 2020-0 Yes 81mg Take 81 mg U nivers mg chewable 9-01 by mouth ity of tablet 11:11: daily. [address] aspirin 81 2020-0 Yes 81mg Take 81 mg U nivers mg chewable 9-01 by mouth ity of tablet 11:11: daily. [address] aspirin 81 2020-0 Yes 81mg Take 81 mg U nivers mg chewable 9-01 by mouth ity of tablet 11:11: daily. [address] aspirin 81 2020-0 Yes 81mg Take 81 mg U nivers mg chewable 9-01 by mouth ity of tablet 11:11: daily. [address] aspirin 81 202-0 Yes 81mg Take 81 mg U nivers mg chewable 9-01 by mouth ity of tablet 11:11: daily. [address] aspirin 81 202-0 Yes 81mg Take 81 mg U nivers mg chewable 9-01 by mouth ity of tablet 11:11: daily. [address] aspirin 81 2020-0 Yes 81mg Take 81 mg U nivers mg chewable 9-01 by mouth ity of tablet 11:11: daily. [address] aspirin 81 2021-0 Yes 81mg Take 81 mg U nivers mg chewable 9-01 by mouth ity of tablet 11:11: daily. [address] aspirin 81 2021-0 Yes 81mg Take 81 mg U nivers mg chewable 9-01 by mouth ity of tablet 11:11: daily. [address] aspirin 81 2021-0 Yes 81mg Take 81 mg U nivers mg chewable 9-01 by mouth ity of tablet 11:11: daily. [address] aspirin 81 2021-0 Yes 81mg Take 81 mg U nivers mg chewable 9-01 by mouth ity of tablet 11:11: daily. [address] aspirin 81 2021-0 Yes 81mg Take 81 mg U nivers mg chewable 9-01 by mouth ity of tablet 11:11: daily. [address] aspirin 81 2021-0 Yes 81mg Take 81 mg U nivers mg chewable 9-01 by mouth ity of tablet 11:11: daily. [address] aspirin 81 2021-0 Yes 81mg Take 81 mg U nivers mg chewable 9-01 by mouth ity of tablet 11:11: daily. [address] Immunizations Ordered Filled Immunization Date Status Comments [facility] e Immunization Name Name Influenza Virus 2022-05-19 Completed Universit y of Vaccine Quad IM, 00:00:00 [facility] dical Preserv and ABX Branch Free 6 MO-64 YRS Influenza Virus 2022-05-19 Completed Universit y of Vaccine Quad IM, 00:00:00 [facility] dical Preserv and ABX Branch Free 6 MO-64 YRS Influenza Virus 2022-05-19 Completed Universit y of Vaccine Quad IM, 00:00:00 [place] dical Preserv and ABX Branch Free 6 MO-64 YRS Influenza Virus 2022-05-19 Completed Universit y of Vaccine Quad IM, 00:00:00 [place] Me dical Preserv and ABX Branch Free 6 MO-64 YRS Influenza Virus 2022-05-19 Completed Universit y of Vaccine Quad IM, 00:00:00 [place] Me dical Preserv and ABX Branch Free 6 MO-64 YRS Influenza Virus 2022-05-19 Completed Universit y of Vaccine Quad IM, 00:00:00 [facility] dical Preserv and ABX Branch Free 6 MO-64 YRS Vital Signs Vital Name Observation Time Observation Value Comments Source Systolic blood 2022-05-19 17:18:00 150 mm[Hg] Univer sity of pressure [facility] Diastolic blood 2022-05-19 17:18:00 69 mm[Hg] Unive rsity of [facility] Heart rate 2022-05-19 17:17:00 58 /min [facility] Body temperature 2022-05-19 17:17:00 37.11 Nehal [facility] Body height 2022-05-19 17:17:00 170.2 cm [facility] Body weight 2022-05-19 17:17:00 68.04 kg [facility] BMI 2022-05-19 17:17:00 23.49 kg/m2 [facility] Oxygen saturation in 2022-05-19 17:17:00 98 /min [facility] Arterial blood by [facility] Pulse oximetry Branch Procedures Procedure Date / Time Performing Clinician Source Performed URINALYSIS 2022-06-21 14:01:00 Susy Hernandez [facility] PHYSICIAN ORDERS 2022-06-21 06:01:00 Doctor [place], [facility] Name [facility] FLU VACC ([id number]), 6 2022-05-19 17:26:04 Kayode Pereira [facility] MO-64 YRS, .5ML, IM, QUAD Medica l Branch (FLUCELVAX) INSURANCE CORRESPONDENCE 2022-05-03 05:01:00 Doctor [place]io, [facility] Name [facility] CBC WITH DIFF 2022-03-29 14:10:00 Susy Hernandez [facility] PHYSICIAN ORDERS 2022-03-29 05:01:00 Doctor Indio [facility] Name [facility] Injection procedure for 2017-05-18 18:26:00 Hussein Holden shoulder arthrography or enhanced CT/MRI shoulder arthrography Encounters Start End Encounter Admission Attending Care Care Encounter Source Date/Time Date/Time Type Type Clinicians Facility Department ID 2021-05-24 Emergency [facility] [id number] Univers 21:54:56 ity of [facility] 2021-05-24 Emergency [facility] [id number] Univers 17:13:06 ity of [facility] 2021-05-23 Outpatient R MASSIMO [facility] PATRICK [id number] Univers 07:16:18 CHAPARRO ity [facility] 2022-06-21 2022-06-21 Public Service Representative Nathanael, Adc Lab Main [facility] 1.2.8 40.114 [id number] Univers 07:45:00 08:00:00 [facility] 350.1.13. 10 [place] [id number] Hi dical IGGY 353 [facility] 2022-06-21 2022-06-21 Outpatient R DAVID [facility] [id number] Univers 07:45:00 07:45:00 [facility] 2022-06-21 2022-06-21 Orders Doctor VIOLETTA 1.2.840.114 [id number] Univers 00:00:00 00:00:00 Only Unassigned, SATHISH 350.1.13.10 ity of [place] [facility] 4.2.7.2.686 Madhu as [id number] [address] 2022-06-14 2022-06-14 [facility] 1.2.840.114 [id number] Univers 00:00:00 00:00:00 [facility] 350.1.13.10 it y of [place] 4.2.7.2.686 Madhu as KENN?BLEA [id number] Hi dical SHELBYEY 044 [facility] OFFICE BUILDING 2022-05-19 2022-05-19 [facility] [id number] Univers 12:15:00 12:32:01 KAYODE itlorenzo [facility] 2022-05-19 2022-05-19 Office [facility] 1.2.840.114 [id number] Univers 12:15:00 12:32:01 Visit [facility] 350.1.13.10 it y of [place] 4.2.7.2.686 Madhu as KENN?BLEA [id number] [address] MEDICAL OFFICE [facility] 2022-05-19 2022-05-19 Letter [facility] 1.2.840.114 [id number] Univers 00:00:00 00:00:00 (Out) Kayode HEALTH 350.1.13.10 it y [facility] 4.2.7.2.686 Madhu as KENN?BLEA [id number] [address] OFFICE [facility] 2022-05-19 2022-05-19 Telephone [facility] 1.2.257.600 [id number] Univers 00:00:00 00:00:00 Kayode HEALTH 350.1.13.10 it y of [place] 4.2.7.2.686 Madhu as KENN?BLEA [id number] [address] 2022-05-11 2022-05-11 Refill [facility] 1.2.840.114 [id number] Univers 00:00:00 00:00:00 Kayode HEALTH 350.1.13.10 it y of [place] 4.2.7.2.686 Madhu as KENN?BLEA [id number] [address] OFFICE [facility] 2022-05-03 2022-05-03 Orders Doctor VIOLETTA 1.2.840.114 [id number] Univers 00:00:00 00:00:00 Only Unassigned, SATHISH 350.1.13.10 ity of [place] [facility] 4.2.7.2.686 Madhu as [id number] [address] 2022-04-20 2022-04-20 Refill [facility] 1.2.840.114 [id number] Univers 00:00:00 00:00:00 Kayode HEALTH 350.1.13.10 it y of [facility] 4.2.7.2.686 Madhu as KENN?BLEA [id number] [address] OFFICE [facility] 2022-04-15 2022-04-15 Public Service Representative Ahsan Huffman Lab Main [facility] 1.2.8 40.114 [id number] Univers 12:45:00 13:00:00 [facility] 350.1.13. 10 [place] [id number] [address] 2022-04-15 2022-04-15 Outpatient R DAVID [facility] [id number] Univers 12:45:00 12:45:00 [facility] f [facility] 2022-04-14 2022-04-14 [facility] 1.2.840.114 [id number] Univers 00:00:00 00:00:00 [facility] 350.1.13.10 it y of [place] 4.2.7.2.686 Madhu as KENN?BLEA [id number] [address] OFFICE [facility] 2022-03-29 2022-03-29 Public Service Representative Nathanael, Adc Lab Main [facility] 1.2.8 40.114 [id number] Univers 08:30:00 08:45:00 Visit Susy [facility] 350.1.13. 10 ity [place] [id number] [address] 2022-03-29 2022-03-29 Outpatient R DAVID [facility] [id number] Univers 08:30:00 08:30:00 VEENABEBETO lucilalorenzo o [facility] 2022-03-29 2022-03-29 Telephone [facility] [id number] Univers 00:00:00 00:00:00 [facility] 350.1.13.10 it y of [place] 4.2.7.2.686 Madhu as KENN?BLEA [id number] [address] MEDICAL OFFICE [facility] 2022-03-29 2022-03-29 Orders Doctor SHIPLEY 1.2.840.114 [id number] Univers 00:00:00 00:00:00 Only Unassigned, SATHISH 350.1.13.10 ity of [place] [facility] 4.2.7.2.686 Madhu as [id number] [address] 2022-03-24 2022-03-24 [facility]ill [facility] 1.2.840.114 [id number] Univers 00:00:00 00:00:00 Kayode HEALTH 350.1.13.10 it y of [place] 4.2.7.2.686 Madhu as KENN?BLEA [id number] [address] MEDICAL OFFICE [facility] 2022-03-01 2022-03-01 Telephone [facility] 1.2.088.502 [id number] Univers 00:00:00 00:00:00 Kayode HEALTH 350.1.13.10 it y of [place] 4.2.7.2.686 Madhu as KENN?BLEA [id number] [address] MEDICAL OFFICE [facility] 2022-02-24 2022-02-24 [facility] 1.2.794.562 [id number] Univers 00:00:00 00:00:00 Kayode HEALTH 350.1.13.10 it y of [place] 4.2.7.2.686 Madhu as KENN?BLEA [id number] [address] OFFICE [facility] 2022-02-17 2022-02-17 Refill [facility] 1.2.840.114 [id number] Univers 00:00:00 00:00:00 Kayode HEALTH 350.1.13.10 it y of [place] 4.2.7.2.686 Madhu as KENN?BLEA [id number] [address] OFFICE [facility] 2022-02-16 2022-02-16 [facility] [id number] Univers 00:00:00 00:00:00 Kayode HEALTH 350.1.13.10 it y of [place] 4.2.7.2.686 Madhu as KENN?BLEA [id number] [address] OFFICE [facility] 2022-02-16 2022-02-16 Letter [facility] 1.2.840.114 [id number] Univers 00:00:00 00:00:00 (Out) Kayode HEALTH 350.1.13.10 it y of [place] 4.2.7.2.686 Madhu as KENN?BLEA [id number] [address] [facility] 2022-02-15 2022-02-15 [facility] [id number] Univers 10:00:00 10:00:00 CHRISTINA pruett [facility] 2022-02-15 2022-02-15 Laboratory Only, Ang Db Test [facility] 1.2.8 40.114 [id number] Univers 10:00:00 10:00:00 Only Christina López [employer] 350.1.13.10 ity of [facility] 4.2.7.2.686 Madhu as KENN?BLEA [id number] [address] OFFICE [facility] 2022-02-15 2022-02-15 Outpatient R [facility] [id number] Univers 10:00:00 09:31:54 CHRISTINA pruett [facility] 2022-02-14 2022-02-14 Outpatient R [facility] [id number] Univers 10:15:00 10:15:00 CHRISTINA pruett [facility] 2022-02-11 2022-02-11 Letter VIOLETTA Jones 1.2.840.114 [id number] Univers 00:00:00 00:00:00 (Out) Jacqueline BOWER 350.1.13.10 it y of HOSPITAL 4.2.7.2.686 Madhu as [id number] [address] 2022-02-11 2022-02-11 Telephone Provider, [facility] 1.2.840.114 [id number] Univers 00:00:00 00:00:00 Ang Db HEALTH 350.1.13.10 it y of [facility]gent [facility] 4.2.7.2.686 [place] KENN?BLEA [id number] [address] MEDICAL OFFICE [facility] 2022-02-10 2022-02-10 [place]gent [place], [facility] 1.2.840.114 [id number] Univers 11:00:00 11:00:00 Care Henok HEALTH 350.1.13.10 it y of [place] 4.2.7.2.686 Madhu as KENN?BLEA [id number] [address] MEDICAL OFFICE BUILDING 2022-02-10 2022-02-10 Outpatient R RICCI [facility] [id number] Univers 11:00:00 10:54:56 HENOK ity [facility] 2022-01-27 2022-01-27 Telephone [facility] 1.2.851.180 [id number] Univers 00:00:00 00:00:00 Kayode HEALTH 350.1.13.10 it y of [facility] 4.2.7.2.686 Madhu as KENN?BLEA [id number] [facility] 044 [facility] OFFICE [facility] 2022-01-18 2022-01-18 Public Service Representative Nathanael, Adc Lab Main [facility] 1.2.8 40.114 [id number] Univers 07:45:00 08:00:00 Visit Ja Sparks 350.1.13.10 ity of [place] [id number] [address] 2022-01-18 2022-01-18 Outpatient R CHELE [facility] [id number] Univers 07:45:00 07:45:00 [facility] 2022-01-18 Orders Doctor VIOLETTA 1.2.840.114 [id number] Univers 00:00:00 00:00:00 Only Unassigned, SATHISH 350.1.13.10 ity of [place] [facility] 4.2.7.2.686 Madhu as [id number] [address] 2022-01-03 2022-01-03 [facility]phone [facility] [id number] Univers 00:00:00 00:00:00 Kayode HEALTH 350.1.13.10 it y of [facility] 4.2.7.2.686 Madhu as KENN?BLEA [id number] [address] OFFICE [facility] 2021-12-21 2021-12-21 Refill [facility] 1.2.840.114 [id number] Univers 00:00:00 00:00:00 Kayode HEALTH 350.1.13.10 it y of [place] 4.2.7.2.686 Madhu as KENN?BLEA [id number] [address] OFFICE [facility] 2021-12-08 2021-12-08 Telephone Michael [facility] [id number] Univers 00:00:00 00:00:00 [facility] 350.1.13.10 it y of [facility] 4.2.7.2.686 Madhu as KENN?BLEA [id number] [address] OFFICE [facility] 2021-11-22 2021-11-22 Telephone [facility] [id number] Univers 00:00:00 00:00:00 Kayode HEALTH 350.1.13.10 it y of [facility] 4.2.7.2.686 Madhu as KENN?BLEA [id number] [address] OFFICE [facility] 2021-11-06 2021-11-06 Orders Doctor VIOLETTA 1.2.840.114 [id number] Univers 00:00:00 00:00:00 Only Unassigned, SATHISH 350.1.13.10 ity of [place] [facility] 4.2.7.2.686 Madhu as [id number] [address] 2021-11-01 2021-11-01 [facility]phone [facility] [id number] [employer] 00:00:00 00:00:00 [facility] [id number] it y [facility] [id number] Madhu as KENN?BLEA [phone] [address] OFFICE [facility] 2021-10-14 2021-10-14 Outpatient R MICHAEL [facility] [id number] Univers 09:45:00 09:45:00 KAYODE ity [facility] 2021-10-14 2021-10-14 [facility] 1.2.840.114 [id number] Univers 09:45:00 09:45:00 Visit [facility] 350.1.13.10 it y of [facility] 4.2.7.2.686 Madhu as KENN?BLEA [phone] [address] OFFICE [facility] 2021-10-14 2021-10-14 [facility] [id number] Univers 09:45:00 09:38:09 KAYODE turner [facility] 2021-10-14 2021-10-14 Marc Pereira, [facility] 1.2.840.114 [id number] Univers 00:00:00 00:00:00 (Out) Kayode [facility] 350.1.13.10 it y of [facility] 4.2.7.2.686 Madhu as KENN?BLEA [phone] [facility] [address] MEDICAL OFFICE BUILDING 2021-10-08 2021-10-08 Public Service Representative Nathanael, Adc Lab Main [facility] 1.2.8 40.114 [id number] Univers 08:15:00 08:30:00 Visit Chele Ja MACEDO 350.1.13.10 ity of [place] [phone] Hi hema [facility] 353 [facility] 2021-10-08 2021-10-08 Outpatient [facility] [id number] Univers 08:15:00 08:15:00 JA turner [facility] 2021-10-08 2021-10-08 Orders Doctor SHIPLEY 1.2.840.114 [id number] Univers 00:00:00 00:00:00 Only Unassigned, SATHISH 350.1.13.10 ity of [place] [facility] 4.2.7.2.686 Madhu as [phone] [facility] [address] 2021-09-21 2021-09-21 Orders Doctor SHIPLEY 1.2.840.114 [id number] Univers 00:00:00 00:00:00 Only Unassigned, SATHISH 350.1.13.10 ity of [place] [facility] 4.2.7.2.686 Madhu as [phone] [facility] [address] 2021-08-27 2021-08-27 Public Service Representative Nathanael, Adc Lab Main [facility] 1.2.8 40.114 [id number] Univers 08:00:00 08:15:00 Visit Susy Hernandez [place] 350.1.13. 10 ity [facility] [place] [phone] Hi dical NAL 353 [facility] 2021-08-27 2021-08-27 Outpatient R DAVID, [facility] [id number] Univers 08:00:00 08:00:00 VEENAED yue o f [facility] 2021-08-27 2021-08-27 Orders Doctor VIOLETTA 1.2.840.114 [id number] Univers 00:00:00 00:00:00 Only Unassigned, SATHISH 350.1.13.10 ity of [place] [facility] 4.2.7.2.686 Madhu as [phone] [address] 2021-08-05 2021-08-05 Ref[facility]ick [facility] 1.2.840.114 [id number] Univers 00:00:00 00:00:00 [facility] 350.1.13.10 it y of [place] 4.2.7.2.686 Madhu as KENN?BLEA [phone] Hi dical KNEY 044 [facility] 2021-08-03 2021-08-03 Public Service Representative Nathanael, Adc Lab Main [facility] 1.2.8 40.114 [id number] Univers 07:30:00 07:45:00 Visit Susy Hernandez 350.1.13. 10 it[place] of [place] [phone] Hi dical NAL 353 [facility] 2021-08-03 2021-08-03 Outpatient R DAVID, [facility] [id number] Univers 07:30:00 07:30:00 SUSY turner o f [facility] 2021-08-03 2021-08-03 Orders Doctor SHIPLEY 1.2.840.114 [id number] Univers 00:00:00 00:00:00 Only Unassigned, SATHISH 350.1.13.10 ity of [place] [facility] 4.2.7.2.686 Madhu as [phone] [address] 2021-07-06 2021-07-06 Public Service Representative Nathanael, Adc Lab Main [facility] 1.2.8 40.114 [id number] Univers 07:33:55 07:48:55 Visit Ja Sparks 350.1.13.10 ity of [place] Gonzalezasim [facility] 4.2.7.2.686 [place] PROFESSIO [phone] Hi dical NAL 353 [facility] 2021-07-06 2021-07-06 Outpatient R DAVID, [facility] [id number] Univers 07:30:00 07:30:00 MOHAMMED ity o f [facility] 2021-07-06 2021-07-06 Outpatient R DAVID, [facility] [id number] Univers 07:30:00 07:30:00 MOHAMMED ity o f [facility] 2021-06-25 2021-06-25 Orders Doctor VIOLETTA 1.2.840.114 [id number] Univers 00:00:00 00:00:00 Only Unassigned, SATHISH 350.1.13.10 ity of [place] [facility] 4.2.7.2.686 Madhu as [phone] [facility] [address] 2021-06-24 2021-06-24 Outpatient R RADIOLOGY [facility] [id number] Univers 14:06:34 23:59:00 ity of [facility] 2021-06-24 2021-06-24 Hospital Radiology [facility] 1.2.840.114 [id number] Univers 14:06:34 23:59:00 Encounter [place] 350.1.13.10 ity of [place].7.[place] [phone] [facility] [address] 2021-06-21 2021-06-21 [facility] Radiology [facility] 1.2.840.114 [id number] Univers 07:43:09 23:59:00 Encounter [place] 350.1.13.10 ity of [facility] 4.2.7.2.[place] [phone] [facility] [address] 2021-06-21 2021-06-21 Public Service Representative Nathanael, Ahsan Lab Main [facility] 1.2.8 40.114 [id number] Univers 07:42:04 07:57:04 Visit Susy Hernandez Gonzalez [place] 350.1.13. 10 ity of [facility] 4.2.7.2.[place] [phone] Hi hema [address] 2021-06-21 2021-06-21 Outpatient R DAVID, [facility] [id number] Univers 07:30:00 07:30:00 SUSY itlorenzo o f [facility] 2021-06-21 2021-06-21 Outpatient R RADIOLOGY [facility] [id number] Univers 00:00:00 00:00:00 ity [facility] 2021-06-15 2021-06-15 Outpatient R MICHAEL [facility] [id number] Univers 08:30:00 08:30:00 KAYODE [facility] 2021-06-15 2021-06-15 Office [facility] 1.2.840.114 [id number] Univers 07:56:08 08:11:08 Visit [facility] 350.1.13.10 it y of [place] 4.2.7.2.686 Madhu as KENN?BLEA [phone] [facility] [address] OFFICE [facility] 2021-06-15 2021-06-15 Letter [facility] 1.2.840.114 [id number] Univers 00:00:00 00:00:00 (Out) [facility] 350.1.13.10 it y of [place] 4.2.7.2.686 Madhu as KENN?BLEA [phone] [address] OFFICE [facility] 2021-06-08 2021-06-08 Telephone Michael [facility] 1.2.036.675 [id number] Univers 00:00:00 00:00:00 [facility] 350.1.13.10 it y of [place] 4.2.7.2.686 Madhu as KENN?BLEA [phone] [address] OFFICE [facility] 2021-06-07 2021-06-07 Emergency X DORIAN [facility] ERT [id number] Univers 09:15:00 10:29:00 CYDNEY [facility] 2021-06-07 2021-06-07 Emergency [facility] 1.2.840.114 [id number] Univers 09:15:00 10:29:00 Cydney MACEDO 350.1.13.10 ity of [place] 4.2.7.2.686 [facility] [phone] [facility] [address] 2021-06-07 2021-06-07 Emergency X DORIAN, [facility] ERT [id number] Univers 09:15:00 10:29:00 CYDNEY ity of [facility] 2021-05-31 2021-05-31 Jan [facility] 1.2.840.114 [id number] Univers 00:00:00 00:00:00 [facility] 350.1.13.10 it y of [place] 4.2.7.2.686 Madhu as KENN?BLEA [phone] Hi dical KNEY [address] MEDICAL OFFICE BUILDING 2021-05-21 2021-05-21 Orders Doctor SHIPLEY 1.2.840.114 [id number] Univers 00:00:00 00:00:00 Only Unassigned, SATHISH 350.1.13.10 ity of [place] [facility] 4.2.7.2.686 Madhu as [phone] [facility] [address] 2021-05-14 2021-05-14 Orders Doctor SHIPLEY 1.2.840.114 [id number] Univers 00:00:00 00:00:00 Only Unassigned, SATHISH 350.1.13.10 ity of [place] [facility] 4.2.7.2.686 Madhu as [phone] [facility] [address] 2021-05-04 2021-05-04 [facility] 1.2.840.114 [id number] Univers 08:11:23 23:59:00 Encounter Susy Macedo 350.1.13.10 ity of [place] 4.2.7.2.686 [facility] [phone] [facility] [address] 2021-05-04 2021-05-04 Public Service Representative Ahsan Huffman Lab Main [facility] 1.2.8 40.114 [id number] Univers 08:07:14 08:22:14 Visit Ja Sparks 350.1.13.10 ity of Susy Hernandezasim Olivarez 4.2.7.2.686 [facility] [phone] [address] 2021-05-04 2021-05-04 Outpatient R DAVID [facility] [id number] Univers 00:00:00 00:00:00 SUSY pruett [facility] 2021-04-20 2021-04-20 Public Service Representative Nathanael, Ahsan Lab Main [facility] 1.2.8 40.114 [id number] Univers 07:36:29 07:51:29 Visit David [facility] 350.1.13. 10 ity of [place] Profess[place] [phone] [address] 2021-04-20 2021-04-20 Outpatient R DAVID [facility] [id number] Univers 07:30:00 07:30:00 SUSY pruett [facility] 2021-04-19 2021-04-19 Orders Doctor VIOLETTA 1.2.840.114 [id number] Univers 00:00:00 00:00:00 Only Unassigned, SATHISH 350.1.13.10 ity of [place] [facility] 4.2.7.2.686 Madhu as [phone] [address] 2021-04-08 2021-04-08 Telephone [facility] 1.2.281.549 [id number] Univers 00:00:00 00:00:00 [facility] 350.1.13.10 it y of [place] 4.2.7.2.686 Madhu as Kenn?Blea [phone] [address] Medical Office Building 2021-04-07 2021-04-07 Office [facility] 1.2.840.114 [id number] Univers 08:39:51 09:09:51 Visit [facility] 350.1.13.10 it y of [place] 4.2.7.2.686 Madhu as Kenn?Blea [phone] [address] Office Building 2021-04-07 2021-04-07 Outpatient R MICHAEL [facility] [id number] Univers 09:00:00 09:00:00 KAYODE ity [facility] 2021-04-02 2021-04-02 Emergency Rodrigues, [facility] 1.2.110.165 [id number] Univers 16:23:00 20:33:00 Tamera S [place] 350.1.13.10 i ty of [place] [phone] [address] 2021-04-02 2021-04-02 Emergency [facility] 1.2.299.822 [id number] Univers 16:23:00 20:33:00 Tamera S [place] 350.1.13.10 i ty of [place].2.[place] [phone] [address] 2021-03-31 2021-03-31 [facility] 1.2.030.074 [id number] Univers 00:00:00 00:00:00 [facility]ode [facility] 350.1.13.10 it y of [place] 4.2.7.2.686 Madhu as Kenn?Blea [phone] [address] Medical Office [facility] 2021-03-31 2021-03-31 Telephone [facility] 1.2.551.403 [id number] Univers 00:00:00 00:00:00 Kayode [facility] 350.1.13.10 it y of [place] 4.2.7.2.686 Madhu as Kenn?Blea [phone] [address] Office [facility] 2021-03-30 2021-03-30 Telephone [facility] 1.2.186.978 [id number] Univers 00:00:00 00:00:00 Kayode [facility] 350.1.13.10 it y of [place] 4.2.7.2.686 Madhu as Kenn?Blea [phone] [address] Office Building 2021-03-29 2021-03-29 Refill [facility] 1.2.840.114 [id number] Univers 00:00:00 00:00:00 Kayode [facility] 350.1.13.10 it y of [place] 4.2.7.2.686 Madhu as Professio [phone] [address] Office Building One 2021-03-29 2021-03-29 Referick [facility] 1.2.840.114 [id number] Univers 00:00:00 00:00:00 Kayode [facility] 350.1.13.10 it y of [place] 4.2.7.2.686 Madhu as Professio [phone] [address] Office Building One 2021-03-28 2021-03-28 [facility] 1.2.840.114 [id number] Univers 00:00:00 00:00:00 [facility] 350.1.13.10 it y of [place] 4.2.7.2.686 Madhu as Kenn?Blea [phone] Hi hema curtis [address] [place] [address] Office Building 2021-03-25 2021-03-25 Transition Demetris Perez 1.2.840.114 [id number] Univers 00:00:00 00:00:00 of Care Carol Morochoy 350.1.13.10 i ty of [place]2.7.2.[place] [phone] [facility] [address] 2021-03-25 2021-03-25 Transition Demetris Perez 1.2.840.114 [id number] Univers 00:00:00 00:00:00 of Care Carol Morochoy 350.1.13.10 i ty of [place] 4[place]2.7.2.[place] [phone] [facility] [address] 2021-03-14 2021-03-24 [facility] 1.2.84 0.114 [id number] Univers 12:26:00 11:09:00 Encounter Roni Duffy 350.1.13.10 ity of [place].2.7.2.[place] [phone] [facility] [address] 2021-03-14 2021-03-24 [facility] 1.2.84 0.114 [id number] Univers 12:26:00 11:09:00 Encounter Roni Duffy 350.1.13.10 ity of [place] 4[place]2.[place].2.[place] [id number] [facility] [address] 2021-03-20 2021-03-20 Surgery [facility] 1.2.840.114 [id number] Univers 07:30:00 08:03:00 Audra yeeleida Arriaga Hellen 350.1.13.10 ity [place] [phone] [facility] [address] 2021-03-20 2021-03-20 Surgery [facility] 1.2.840.114 [id number] Univers 07:30:00 08:03:00 e Margarita Macedo 350.1.13.10 ity of [place] [phone] [address] 2021-03-17 2021-03-17 Telephone [facility] 1.2.906.333 [id number] Univers 00:00:00 00:00:00 Kayode Xtellus 350.1.13.10 it y of [place] 4.2.7.2.686 Madhu as Kenn?Blea [phone] Hi hema curtis [address] [place] [address] Medical Office Building 2021-03-10 2021-03-10 Outpatient R MICHAEL [facility] [id number] Univers 09:45:00 09:45:00 KAYODE turner [facility] 2021-02-26 2021-02-26 Telephone Michael [facility] 1.2.544.915 [id number] Univers 00:00:00 00:00:00 Kayode Xtellus 350.1.13.10 it y of [place] 4.2.7.2.686 Madhu as Professio [phone] Hi hema jones [address] [place] [address] Office Building One 2021-02-24 2021-02-24 Outpatient R [facility] [id number] Univers 09:20:00 09:20:00 ity [facility] 2021-02-24 2021-02-24 Laboratory Lab, Adc Fam Pob I [facility] 1.2. 840.114 [id number] Univers 08:58:04 09:18:04 Only Kayode Pereira Health 350.1.13.10 ity of [place] 4.2.7.2.686 Madhu as Professio [phone] Hi dic[address] Office [facility] One 2021-02-24 2021-02-24 Marc [facility] 1.2.840.114 [id number] Univers 00:00:00 00:00:00 (Out) [facility] 350.1.13.10 it y of [place] 4.2.7.2.686 Madhu as Professio [phone] [facility] nal [address] [place] [address] Office [facility] One 2021-02-24 2021-02-24 Marc [facility] 1.2.840.114 [id number] Univers 00:00:00 00:00:00 (Out) [facility] 350.1.13.10 it y of [place] 4.2.7.2.686 Madhu as Professio [phone] [address] One 2021-02-22 2021-02-22 Outpatient Leida PEREIRA [facility] [id number] Univers 15:15:00 15:15:00 KAYODE lorenzo [facility] 2021-02-22 2021-02-22 Office [facility] 1.2.840.114 [id number] Univers 14:18:49 15:08:09 Visit [facility] 350.1.13.10 it y of [place] 4.2.7.2.686 Madhu as Professio [phone] [address] Office [facility] One 2021-02-12 2021-02-12 Outpatient JOSE ALFREDO COYLE [facility] [id number] Univers 10:40:00 10:40:00 JOSE ALFREDO CARVALHO [facility] 2021-02-07 2021-02-07 Wilton Galvan [facility] 1.2.516.855 [id number] Univers 00:00:00 00:00:00 [facility] 350.1.13.10 it y of [place] 4.2.7.2.686 Madhu as Professio [phone] [address] Office [facility] One 2021-02-06 2021-02-06 Wilton Galvan [facility] 1.2.213.899 [id number] Univers 00:00:00 00:00:[address] [facility] 350.1.13.10 it y of [place] 4.2.7.2.686 Madhu as Professio [phone] Hi dical nal 044 [facility] One 2021-02-05 2021-02-05 Laboratory Lab, Adc Fam Pob I [facility] 1.2. 840.114 [id number] Univers 11:08:01 11:28:[address] [facility] 350.1.13.10 ity of [place] 4.2.7.2.686 Madhu as Professio [phone] [facility] nal 044 [facility] One 2021-02-05 2021-02-05 [facility] [id number] Univers 11:00:00 11:00:00 INGA ity of [facility] 2020-12-28 2020-12-28 Jan [facility] 1.2.840.114 [id number] Univers 00:00:00 00:00:00 Jose Alfredo Brandt [place] 350.1.13.10 ity of [place] [phone] [facility] 092 [facility] 2020-12-07 2020-12-07 Urgent Provider, [facility] 1.2.840.114 [id number] Univers 13:04:34 13:24:34 [facility] 350.1.13.10 ity of [place] 4.2.7.2.686 Madhu as Professio [phone] [facility] 044 [facility] One 2020-12-07 2020-12-07 Outpatient R [facility] [id number] Univers 13:20:00 13:20:00 ity of [facility] 2020-12-07 2020-12-07 Marc Hendrickson [facility] 1.2.840.114 [id number] Univers 00:00:00 00:00:00 (Out) [facility] 350.1.13.10 it y of [place] 4.2.7.2.686 Madhu as Professio [phone] [facility] 044 [facility] One 2020-10-26 2020-10-26 Jan Carvalho [facility] 1.2.840.114 [id number] Univers 00:00:00 00:00:00 Jose Alfredo Macedo 350.1.13.10 ity of [place].2.[place] [phone] [facility] 092 [facility] 2020-10-24 2020-10-24 Public Service Representative Ahsan Huffman Lab Main [facility] 1.2.8 40.114 [id number] Univers 08:18:22 08:33:22 Visit Kayode Pereira 350.1.13.10 ity of [place] 4.2.7.2.[place] [phone] [facility] 353 [facility] 2020-10-24 2020-10-24 Outpatient [facility] [id number] Univers 08:30:00 08:30:00 KAYODE ity [facility] 2020-10-23 2020-10-23 Urgent Provider, [facility] 1.2.840.114 [id number] Univers 07:58:19 08:18:19 Care Samantha Hendrickson 350.1.13.10 ity of [place] 4.2.7.2.686 Madhu as Professio [phone] [address] One 2020-10-23 2020-10-23 Outpatient R [facility] [id number] Univers 08:00:00 08:00:00 ity of [facility] 2020-10-23 2020-10-23 Telephone [facility] 1.2.521.587 [id number] Univers 00:00:00 00:00:00 [facility] 350.1.13.10 it y of [place] 4.2.7.2.686 Madhu as Professio [phone] [facility] 044 [facility] One 2020-10-21 2020-10-21 [facility] 1.2.718.291 [id number] Univers 09:23:00 12:24:00 Encounter Chaparro Macedo 350.1.13.10 it[place] [phone] [facility] [address] 2020-10-21 2020-10-21 Surgery Massimo [facility] 1.2.840.114 [id number] Univers 11:29:00 12:10:00 Chaparro Lesly Hell[place] 350.1.13.10 it[place] [phone] [facility] [address] 2020-10-21 2020-10-21 Orders Doctor VIOLETTA 1.2.840.114 [id number] Univers 00:00:00 00:00:00 Only Unassigned, SATHISH 350.1.13.10 ity of [place] [facility] 4.2.7.2.686 Madhu as [phone] [facility] [address] 2020-10-20 2020-10-20 Laboratory Only, Adc Test [facility] 1.2.840. 114 [id number] Univers 08:55:32 09:10:32 Only Chaparro Tran 350.1.13.1 0 ity of [place] 4[place].2.[place] [phone] [facility] [address] 2020-10-20 2020-10-20 Outpatient Leida TRAN [facility] [id number] Univers 08:45:00 08:45:00 CHAPARRO turner [facility] 2020-10-16 2020-10-16 Public Service Representative Nathanael, Adc Lab Main [facility] 1.2.8 40.114 [id number] Univers 13:04:04 13:19:04 Visit Kayode Pereira 350.1.13.10 ity of [place].2.[place] [phone] [facility] 353 [facility] 2020-10-16 2020-10-16 Outpatient Leida PEREIRA [facility] [id number] Univers 13:15:00 13:15:00 KAYODE turner [facility] 2020-10-16 2020-10-16 Outpatient Leida PEREIRA [facility] [id number] Univers 13:15:00 13:15:00 [facility] 2020-10-16 2020-10-16 Public Service Representative Ahsan Huffman Lab Main [facility] 1.2.8 40.114 [id number] Univers 10:28:31 10:43:31 Visit Chaparro Tran 350.1.13.1 0 ity [place].2.[place] [phone] Hi dical nal 353 [facility] 2020-10-16 2020-10-16 Outpatient R MASSIMO [facility] [id number] Univers 10:15:00 10:15:00 CHAPARRO itlorenzo [facility] 2020-10-16 2020-10-16 Telephone [facility] 1.2.945.229 [id number] Univers 00:00:00 00:00:00 [facility] 350.1.13.10 it y of [place] 4.2.7.2.686 Madhu as Professio [phone] Hi dical nal [address] Office [facility] One 2020-09-30 2020-09-30 Orders Doctor SHIPLEY 1.2.840.114 [id number] Univers 00:00:00 00:00:00 Only Unassigned, SATHISH 350.1.13.10 ity of [place] [facility] 4.2.7.2.686 Madhu as [phone] [address] 2020-08-24 2020-08-24 [facility] 1.2.840.114 [id number] Univers 00:00:00 00:00:00 Jose Alfredo Macedo 350.1.13.10 it[place] [phone] Hi dical nal 092 [facility] 2020-07-08 2020-07-08 [facility] 1.2.840.114 [id number] Univers 00:00:00 00:00:00 Jose Alfredo Macedo 350.1.13.10 it[place].2.[place] [phone] Hi dical nal 092 [facility] 2020-06-09 2020-06-09 Orders Doctor SHIPLEY 1.2.840.114 [id number] Univers 00:00:00 00:00:00 Only Unassigned, SATHISH 350.1.13.10 [facility] 4.2.7.2.686 Madhu as [phone] [address] 2020-05-27 2020-05-27 Referick Jensenoche [facility] 1.2.840.114 [id number] Univers 00:00:00 00:00:00 Jose Alfredo Macedo 350.1.13.10 it[place] [phone] [address] 2020-04-24 2020-04-24 [facility]ick [facility] 1.2.840.114 [id number] Univers 00:00:00 00:00:00 Jose Alfredo Macedo 350.1.13.10 [place] [phone] [address] 2020-03-16 2020-03-16 Jan Jensenyao [facility] 1.2.840.114 [id number] Univers 00:00:00 00:00:00 Jose Alfredo Macedo 350.1.13.10 [place] [phone] Hi dic[address] 2020-02-21 2020-02-21 Wilton Carvalho [facility] 1.2.840.114 [id number] Univers 00:00:00 00:00:00 Jose Alfredo Macedo 350.1.13.10 [place] [phone] [address] 2020-02-20 2020-02-20 Referick Carvalho [facility] 1.2.840.114 [id number] Univers 00:00:00 00:00:00 Jose Alfredo Macedo 350.1.13.10 [place] [phone] [address] 2020-01-28 2020-01-28 Referick Carvalho [facility] 1.2.840.114 [id number] Univers 00:00:00 00:00:00 Jose Alfredo Macedo 350.1.13.10 [place] [phone] Hi dical nal 092 [facility] 2019-11-29 2019-11-29 Outpatient R JOSE ALFREDO CARVALHO [facility] [id number] Univers 14:00:00 14:00:00 JOSE ALFREDO CARVALHO ity of [facility] 2019-11-29 2019-11-29 [facility] 1.2.840.114 [id number] Univers 12:03:54 12:23:54 ne Visit Jose Alfredo Macedo 350.1.13.10 [place] [phone] Hi dical nal 092 [facility] 2019-11-26 2019-11-26 Telephone [facility] 1.2.840.114 [id number] Univers 00:00:00 00:00:00 Jose Alfredo Macedo 350.1.13.10 [place] [phone] Hi dical nal 092 [facility] 2019-11-24 2019-11-24 [facility] 1.2.840.114 [id number] [facility] 00:00[facility]00 [facility] [facility] [id number] ity of Surgical 4.2.7.2.686 Madhu as Specialti [phone] Hi dical es 198 [facility] 2019-09-13 2019-09-13 Orders Doctor VIOLETTA 1.2.840.114 [id number] Univers 00:00:00 00:00:00 Only Unassigned, SATHISH 350.1.13.10 ity of [facility] 4.2.7.2.686 Madhu as [phone] [address] 2019-09-06 2019-09-06 [facility] 1.2.840.114 [id number] Univers 00:00:00 00:00:00 Jose [facility] [id number] ity of Surgical 4.2.7.2.686 Madhu as Specialti [phone] Me dical es 198 [facility] 2019-08-28 2019-08-28 [facility] 1.2.840.114 [id number] Univers 00:00:00 00:00:00 [facility] 350.1.13.10 it y of [place] 4.2.7.2.686 Madhu as Professio [phone] Hi dical nal [address] [facility] 2019-08-28 2019-08-28 [facility] 1.2.840.114 [id number] Univers 00:00:00 00:00:00 [facility] [id number] ity of Surgical 4.2.7.2.686 Madhu as Specialti [phone] Hi dical es 198 [facility] 2019-08-26 2019-08-26 Telephone [facility] [id number] Univers 00:00:00 00:00:00 [facility] 350.1.13.10 it y of [place] 4.2.7.2.686 Madhu as Professio [phone] Hi dical nal 044 [facility] 2019-08-19 2019-08-19 Office Michael [facility] 1.2.840.114 [id number] Univers 12:35:11 12:50:11 Visit [facility] 350.1.13.10 it y of [place] 4.2.7.2.686 Madhu as Professio [phone] Hi dical nal 0[address] [facility] 2019-08-19 2019-08-19 Orders Doctor VIOLETTA 1.2.840.114 [id number] Univers 00:00:00 00:00:00 Only Unassigned, SATHISH 350.1.13.10 ity of [facility] 4.2.7.2.686 Madhu as [phone] [facility] [address] 2019-08-19 2019-08-19 Letter [facility] 1.2.840.114 [id number] Univers 00:00:00 00:00:00 (Out) [facility] 350.1.13.10 it y of [place] 4.2.7.2.686 Madhu as Professio [phone] Me dical nal 044 [facility] 2019-08-10 2019-08-10 [facility] 1.2.840.114 [id number] Univers 00:00:00 00:00:00 [facility] 350.1.13.10 ity of Surgical 4.2.7.2.686 Madhu as Specialti [phone] Me dical es 198 [facility] 2019-02-21 2019-02-21 [facility] 1.2.840.114 [id number] Univers 00:00:00 00:00:00 [facility] 350.1.13.10 ity of Surgical 4.2.7.2.686 Madhu as Specialti [phone] Me dical es 198 [facility] 2017-05-18 2017-05-19 Outpt Diag nullFlavo [facility] [id number] Memoria 15:45:00 04:59:00 Services r Outpatient 01 l Imaging Navin [place] 2017-05-18 2017-05-19 Outpt Diag nullFlavo [facility] [id number] Memoria 15:45:00 04:59:00 Services r Outpatient 01 l Imaging Navin [place] 2017-05-18 2017-05-18 Outpatient Julio [facility] [id number] 10:45:00 23:59:00 Addison Ricketts 2016-02-19 2016-02-20 Outpt Diag nullFlavo [facility] [id number] Memoria 16:06:00 04:59:00 Services r Outpatient 00 l Imaging Navin [place] 2016-02-19 2016-02-20 Outpt Diag nullFlavo [facility] [id number] Memoria 16:06:00 04:59:00 Services r Outpatient 00 l [place] 2016-02-19 2016-02-19 Outpatient Dorian [facility] [id number] 11:06:00 23:59:00 Abram Spencer 00 Results Test Description Test Time Test Comments Results Result Comments Source URINALYSIS 2022-06-21 14:37:41 Test Item Value Reference Range Interpretation Comme nts APPEARANCE (test code = Clear Clear 4154340675) COLOR (test code = 7144881978) Yellow Yellow PH (test code = 3987442322) 4.8-8.0 SP GRAVITY (test code = 1.003-1.030 6470428987) GLU U QUAL (test code = Normal Normal 6385671017) BLOOD (test code = 9213609363) Negative Negative KETONES (test code = 1953052973) Negative Negative PROTEIN (test code = 2887-8) Negative Negative UROBILIN (test code = Normal Normal 3939094552) BILIRUBIN (test code = Negative Negative 3015931763) NITRITE (test code = 3993271794) Negative Negative LEUK HAYLEE (test code = Negative Negative 6379209391) RBC/HPF (test code = 3179793229) See_Comment [Automated message] The system which ge nerated this result transmit chad reference range: 0 - 3 HP F. The reference range was not used to interpret th is result as normal/abnormal . WBC/HPF (test code = 1244426091) See_Comment [Automated message] The system which ge nerated this result transmit chad reference range: 0 - 5 HP F. The reference range was not used to interpret th is result as normal/abnormal . BACTERIA (test code = Few Negative A 4274357614) MUCOUS (test code = 4758634434) Slight Negative LPF A HYAL CAST (test code = See_Comment H [Aut omated message] The 2272959731) system which Whatever nerated this result transmit chad reference range: <=2 LPF. The reference range was not u sed to interpret this result as normal/abnormal . Lab Interpretation (test code = Abnormal 24481-8) [facility] WITH [id number] 14:35:01 Test Item Value Reference Range Interpretation Comments WBC (test code = See_Comment [Automated 6990-2) message] The sy stem which generated this result transmitted reference range : 4.20 - 10.70 10*3/?L. The reference range was not used to interpret this result as normal/abnormal . RBC (test code = See_Comment [Automated 259-8) message] The sy stem which generated this [...] RDW-SD (test code = 45.3 fL 38.5-51.6 69436-8) RDW-CV (test code = 12.9 % 12.1-15.4 788-0) PLT (test code = See_Comment H [Automated 777-3) message] The sy stem which generated this result transmitted reference range : 150 - 328 10*3/ ?L. The reference r masood was not used to interpret this result as normal/abnormal . MPV (test code = 10.0 fL 9.8-13 80016-0) NRBC/100 WBC (test See_Comment [Automat ed code = 0180217265) message] The system which generated this result transmitted reference range : 0.0 - 10.0 /100 WBCs. The refer ence range was not u sed to interpret th is result as normal/abnormal . NRBC x10^3 (test code See_Comment [Auto mated = 4264564974) message] The s ystem which generated this result transmitted reference range : 10*3/?L. The reference range was not used to interpret this result as normal/abnormal . GRAN MAT (NEUT) % 69.1 % (test code = 770-8) IMM GRAN % (test code 0.60 % = 6669062773) LYMPH % (test code = 15.1 % 736-9) MONO % (test code = 14.1 % 5905-5) EOS % (test code = 0.7 % 713-8) BASO % (test code = 0.4 % 706-2) GRAN MAT x10^3(ANC) 6.25 10*3/uL 1.99-6.95 (test code = 6365502361) IMM GRAN x10^3 (test 0.05 10*3/uL 0-0.06 code = 4570866677) LYMPH x10^3 (test code 1.36 10*3/uL 1.09-3.23 = 731-0) MONO x10^3 (test code 1.27 10*3/uL 0.36-1.02 H = 742-7) EOS x10^3 (test code = 0.06 10*3/uL 0.06-0.53 711-2) BASO x10^3 (test code 0.04 10*3/uL 0.01-0.09 = 704-7) Lab Interpretation Abnormal (test code = 88182-7) [facility]
[2022-07-11] MEDS ORDERED: ASPIRIN 81 MG CHEWABLE TABLET ONE (08:03)
[2022-07-11] MEDS ORDERED: KETOROLAC 30 MG/ML INJ ONE (08:07)
[2022-07-11 08:11] LABS: Absolute Lymphocytes (CBC) 1.3 K/uL (0.7-4.9); Hematocrit 45.9 % (39.6-49.0); Lymphocytes % 15.4 % (15.3-44.8); MCV 92.7 fL (80-100); MPV 7.7 fL (7.6-11.3); RBC Red Blood Cell Count 4.95 M/uL (4.33-5.43)
[2022-07-11 08:18] LABS: Protime INR 1.01
[2022-07-11 08:34] LABS: Albumin 3.9 g/dL (3.4-5.0); Bilirubin Direct 0.3 mg/dL (0-0.2); Potassium 4.4 mmol/L (3.5-5.1); Protein, Total 8.5 g/dL (6.4-8.2)
--- NOTE | 2022-07-11 08:38 | RAD REPORT ---
EXAM DESCRIPTION: CT - Head C Spine Cap Wo Con - 07/11/2022 8:10 am CLINICAL HISTORY: fallseveral days earlier with increasing pain, shortness of breath and dizziness, midsternal pain, right axillary and right flank pain, abdominal pain COMPARISON: Head C Spine Mpr Wo Con dated 07/08/2022 TECHNIQUE: Axial [address] head images were obtained. Axial [address] cervical spine images were obtain ed with sagittal and coronal reconstruction images reviewed. Axial 5 mm images of the chest, abdomen and pelvis were obtained. Oral contrast: None All CT scans are performed using dose optimization technique as appropriate and may include automated exposure control or mA/KV adjustment according to patient size. FINDINGS: No intracranial hemorrhage, mass or edema. No midline shift or abnormal fluid collection. Mastoid air cells and paranasal sinuses are clear. No skull fracture. Intracranial findings are stab le from July 08 imaging Cervical bodies are normal in height and AP alignment. There is a minimal right lateral tilt of the c ervical spine that may be positioning artifact. No fracture or acute finding seen.Advanced disc and e ndplate degenerative changes again noted at C6-7. Mild left foraminal encroachment from uncovertebral hypertrophy at C3-4. Prominent right foraminal stenosis at C6-7.No prevertebral soft tissue thickeni ng or paraspinal mass.Central canal detail is inherently limited on CT imaging. CT chest shows no pneumothorax, pulmonary contusion or pleural fluid collection. No mediastinal hem atoma and the aorta and pulmonary arteries are unremarkable for noncontrast imaging. No chest will ma ss or abnormal axillary finding. No displaced rib fracture is present. No nondisplaced rib fractures identifiable. Scapula are intact. No clavicle fracture or dislocation. Humeral head positioning is in tact. Degenerative changes are present at the manubrium - sternum junction. No fracture of the sternu m is identifiable. No fracture of a thoraco lumbar vertebrae identifiable. Facet degenerative changes are present. CT abdomen and pelvis show no injury to solid abdominal viscera. Gallbladder and biliary tree are unr emarkable. No bowel injury or significant finding. No free air, free fluid or abnormal stranding. No mass or bulky lymphadenopathy. A small fat only umbilical hernia is present. Both testicles have been retracted into the inguinal canals. No urinary bladder abnormality. Lower lumbar and pelvic degenerative changes are present. No acute bone finding. No hematoma or signi ficant contusion in the subcutaneous fatty tissues. No skeletal muscle abnormality. IMPRESSION: No acute CT Head finding. No change from July 08. Cervical spine degenerative change as detailed. No change from July [address] Chest finding. No significant CT Abdomen and Pelvis finding.
--- NOTE | 2022-07-11 08:40 | RAD REPORT ---
EXAM DESCRIPTION: RAD - Chest Single View - 07/11/2022 8:32 am CLINICAL HISTORY: CHEST PAINpersisting after fall 2 days earlier COMPARISON: No remote imaging available. TECHNIQUE: AP portable chest image was obtained 07/11/2022 8:32 am . FINDINGS: No pneumothorax, pulmonary contusion or acute chest process. Heart and vasculature are nor mal. No pleural fluid collection identified. No acute rib injury identifiable. Mild degenerative cooper ges present at the intact AC joints. No dislocation of either proximal humeral head. No acute aortic findings suspected. IMPRESSION: No acute cardiopulmonary process.
--- NOTE | 2022-07-11 08:45 | ER ---
Nurse's Notes [facility] Name: Dany Thornton Age: 62 yrs Sex: Male : 1960 Arrival Date: 07/11/2022 Time: 07:45 Bed 2 Private MD: Kayode Rodriguez S Diagnosis: Other cervical disc degeneration;Other intervertebral disc degeneration, lumbosacral region Presentation: 07/11 08:02 Chief complaint: Patient states: fell about two days ago and states h/a and neck pain vg1 that began this morning. Denies N/V. Rates pain 05/02. Coronavirus screen: Vaccine status: Patient reports receiving the 2nd dose of the covid vaccine. Client denies travel out of the [place] in the last 14 days. Ebola Screen: Patient negative for fever greater than or equal to 101.5 degrees Fahrenheit, and additional compatible Ebola Virus Disease symptoms. Initial Sepsis Screen: Does the patient meet any 2 criteria? No. Patient's initial sepsis screen is negative. Does the patient have a suspected source of infection? No. Patient's initial sepsis screen is negative. Risk Assessment: Do you want to hurt yourself or someone else? Patient reports no desire to harm self or others. Onset of symptoms was July 11, 2022. 08:02 Method Of Arrival: Ambulatory vg1 08:02 Acuity: IRINEO 3 vg1 Triage Assessment: 08:06 General: Appears uncomfortable, Behavior is fussy. Pain: Complains of pain in head, vg1 neck, right shoulder Pain currently is 10 out of 10 on a pain scale. Pain began 30 min ago. Noted to be grimacing, moaning. EENT: No signs and/or symptoms were reported regarding the EENT system. Neuro: Level of Consciousness is awake, alert, obeys commands, Oriented to person, place, time, situation. Cardiovascular: Patient's skin is warm and dry. Respiratory: Reports shortness of breath at rest Onset: The symptoms/episode began/occurred this morning, the patient has mild shortness of breath. GI: Abdomen is round non-distended, Patient currently denies nausea, vomiting. : No signs and/or symptoms were reported regarding the genitourinary system. Derm: Bruising that is on Left elbow and right wrist. Musculoskeletal: Swelling present in left elbow. Historical: - Allergies: 08:06 Benadryl; vg1 - PMHx: 08:06 Hypertension; vg1 - PSHx: 08:06 Knee replacement x2-left; Shoulder surgery-left; vg1 - Immunization history:: Client reports receiving the 2nd dose of the Covid vaccine. - Social history:: Smoking status: Patient reports use of chewing tobacco. Screenin:08 [facility] ED Fall Risk Assessment (Adult) History of falling in the last 3 months, vg1 including since admission Yes- single mechanical fall (1 pt) Confusion or Disorientation No (0 pts) Intoxicated or Sedated No (0 pts) Impaired Gait No (0 pts) Mobility Assist Device Used No (0 pt) Altered Elimination No (0 pt) Score/Fall Risk Level 0 - 2 = Low Risk Oriented to surroundings, Maintained a safe environment, Educated pt \T\ family on fall prevention, incl call for assistance when getting out of bed, Assessed \T\ reinforced patient's understanding of fall precautions. Abuse screen: Denies threats or abuse. Abuse screen: Denies threats or abuse. Nutritional screening: No deficits noted. Tuberculosis screening: No symptoms or risk factors identified. 08:30 Fall Risk Fall in past 12 months (25 points). IV access (20 points). ko1 Assessment: 08:09 Respiratory: Airway is patent Respiratory effort is even, unlabored, Breath sounds are vg1 clear bilaterally. 08:10 Reassessment: SEE TRIAGE. vg1 08:59 Reassessment: Patient appears in no apparent distress at this time. No changes from vg1 previously documented assessment. Patient and/or family updated on plan of care and expected duration. Pain level reassessed. Patient is alert, oriented x 3, equal unlabored respirations, skin warm/dry/pink. 09:00 Cardiovascular: Rhythm is sinus rhythm. ko1 Vital Signs: 07:54 BP 139 / 72; Pulse 74; Pulse Ox 100% on R/A; ko1 08:02 BP 139 / 72; Pulse 78; Resp 19; Temp 97.9; Pulse Ox 100% ; Weight 68.04 kg; Height 5 vg1 ft. 7 in. (170.18 cm); Pain 10/10; 08:15 BP 147 / 67; Pulse 62; Pulse Ox 99% on R/A; ko1 08:30 BP 149 / 72; Pulse 65; Pulse Ox 100% on R/A; ko1 08:02 Body Mass Index 23.49 (68.04 kg, 170.18 cm) vg1 ED Course: 07:45 Patient arrived in ED. mr 07:45 Kayode Rodriguez MD is Private Physician. mr 07:45 Li Nazario F[facility]-C [facility]. snw 07:45 Brandyn Tafoya DO is Attending Physician. snw 07:58 Initial lab(s) drawn, by me, sent to lab. Inserted saline lock: 20 gauge in right vg1 antecubital area, using aseptic technique. Blood collected. 07:59 Troponin HS Sent. ko1 07:59 PT-INR Sent. ko1 07:59 NT PRO-BNP Sent. ko1 07:59 Magnesium Sent. ko1 08:00 Basic Metabolic Panel Sent. ko1 08:00 CBC with Diff Sent. ko1 08:00 LFT's Sent. ko1 08:01 EKG completed in triage. Results shown to MD. jl7 08:02 Supriya Naidu, RN is Primary Nurse. vg1 08:06 Triage completed. vg1 08:06 Arm band placed on. vg1 08:08 Patient has correct armband on for positive identification. Bed in low position. Call 1 light in reach. Side rails up X2. Adult w/ patient. Client placed on continuous cardiac and pulse oximetry monitoring. NIBP monitoring applied. 08:12 CT Traumagram (Head C Spine CAP wo con) In Process Unspecified. EDMS 08:34 XRAY Chest (1 view) In Process Unspecified. EDMS 08:44 Kayode Rodriguez MD is Referral Physician. snw 08:49 No provider procedures requiring assistance completed. IV discontinued, intact, ko1 bleeding controlled, No redness/swelling at site. Pressure dressing applied. Administered Medications: 08:03 Drug: Aspirin Chewable Tablet 324 mg Route: PO; ko1 09:00 Follow up: Response: No adverse reaction vg1 08:07 Drug: Ketorolac 30 mg Route: IVP; Site: right antecubital; ko1 08:59 Follow up: Response: No adverse reaction; Marked relief of symptoms vg1 Medication: 08:09 VIS not applicable for this client. vg1 Outcome: 08:45 Discharge ordered by . snw 08:50 Discharged to home via wheelchair, with family. ko1 08:50 Condition: improved 08:50 Discharge instructions given to patient, family, Instructed on discharge instructions, follow up and referral plans. medication usage, Demonstrated understanding of instructions, follow-up care, medications, Prescriptions given X 1. 09:04 Patient left the ED. ko1 Signatures: Dispatcher [employer] EDMS Li Nazario, CERTIFIED WELDING INSPECTOR-C CERTIFIED WELDING INSPECTOR-Csnw Celina Olson Ravin Lewis, RN RN jl7 Supriya Naidu RN RN vg1 Benita Ny, HARSHAD RN ko1 Corrections: (The following items were deleted from the chart) 08: 08:30 No provider procedures requiring assistance completed. ko1 ko1 08:50 08:30 IV discontinued, intact, bleeding controlled, No redness/swelling at site. ko1 Pressure dressing applied, ko1
--- NOTE | 2022-07-11 08:45 | EDPHYS ---
Physician Documentation [facility] Name: Dany Thornton Age: 62 yrs Sex: Male : 1960 Arrival Date: 07/11/2022 Time: 07:45 Bed 2 Private MD: Kayode Rodriguez S ED Physician Brandyn Tafoya HPI: 07/11 08:06 This 62 yrs old Male presents to ER via Ambulatory with complaints of Shortness Of snw Breath, Dizziness. 08:06 The patient has shortness of breath at rest. Onset: The symptoms/episode began/occurred snw acutely. Duration: The symptoms are continuous. Associated signs and symptoms: Pertinent positives: dizziness. Severity of symptoms: At their worst the symptoms were moderate. The patient has not experienced similar symptoms in the past. pt fell and was seen in the ED. Historical: - Allergies: 08:06 Benadryl; vg1 - PMHx: 08:06 Hypertension; vg1 - PSHx: 08:06 Knee replacement x2-left; Shoulder surgery-left; vg1 - Immunization history:: Client reports receiving the 2nd dose of the Covid vaccine. - Social history:: Smoking status: Patient reports use of chewing tobacco. ROS: 08:49 Eyes: Negative for injury, pain, redness, and discharge, ENT: Negative for injury, snw pain, and discharge, Neck: Negative for injury, pain, and swelling. 08:49 Abdomen/GI: Negative for abdominal pain, nausea, vomiting, diarrhea, and constipation. 08:49 : Negative for injury, bleeding, discharge, and swelling, Skin: Negative for injury, rash, and discoloration, Neuro: Negative for headache, weakness, numbness, tingling, and seizure, Psych: Negative for depression, anxiety, suicide ideation, homicidal ideation, and hallucinations. 08:49 Constitutional: Positive for body aches, malaise. 08:49 Cardiovascular: Positive for chest pain, with movement. 08:49 Respiratory: Positive for shortness of breath, at rest. 08:49 Back: Positive for pain at rest, pain with movement. 08:49 MS/extremity: Positive for decreased range of motion, pain, paresthesias, tenderness. Exam: 08:05 Constitutional: This is a well developed, well nourished patient who is awake, alert, snw and in no acute distress. Head/Face: Normocephalic, atraumatic. Eyes: Pupils equal round and reactive to light, extra-ocular motions intact. Lids and lashes normal. Conjunctiva and sclera are non-icteric and not injected. Cornea within normal limits. Periorbital areas with no swelling, redness, or edema. ENT: Nares patent. No nasal discharge, no septal abnormalities noted. Tympanic membranes are normal and external auditory canals are clear. Oropharynx with no redness, swelling, or masses, exudates, or evidence of obstruction, uvula midline. Mucous membranes moist. Neck: Trachea midline, no thyromegaly or masses palpated, and no cervical lymphadenopathy. Supple, full range of motion without nuchal rigidity, or vertebral point tenderness. No Meningismus. Chest/axilla: Normal chest wall appearance and motion. Nontender with no deformity. No lesions are appreciated. Cardiovascular: Regular rate and rhythm with a normal S1 and S2. No gallops, murmurs, or rubs. Normal PMI, no JVD. No pulse deficits. Respiratory: Lungs have equal breath sounds bilaterally, clear to auscultation and percussion. No rales, rhonchi or wheezes noted. No increased work of breathing, no retractions or nasal flaring. Abdomen/GI: Soft, non-tender, with normal bowel sounds. No distension or tympany. No guarding or rebound. No evidence of tenderness throughout. Back: No spinal tenderness. No costovertebral tenderness. Full range of motion. Skin: Warm, dry with normal turgor. Normal color with no rashes, no lesions, and no evidence of cellulitis. MS/ Extremity: Pulses equal, no cyanosis. Neurovascular intact. Full, normal range of motion. Neuro: Awake and alert, GCS 15, oriented to person, place, time, and situation. Cranial nerves II-XII grossly intact. Motor strength 5/5 in all extremities. Sensory grossly intact. Cerebellar exam normal. Normal gait. Vital Signs: 07:54 BP 139 / 72; Pulse 74; Pulse Ox 100% on R/A; ko1 08:02 BP 139 / 72; Pulse 78; Resp 19; Temp 97.9; Pulse Ox 100% ; Weight 68.04 kg; Height 5 vg1 ft. 7 in. (170.18 cm); Pain 10/10; 08:15 BP 147 / 67; Pulse 62; Pulse Ox 99% on R/A; ko1 08:30 BP 149 / 72; Pulse 65; Pulse Ox 100% on R/A; ko1 08:02 Body Mass Index 23.49 (68.04 kg, 170.18 cm) vg1 MDM: 07:57 Patient medically screened. snw 08:49 Data reviewed: vital signs, nurses notes, lab test result(s), EKG, radiologic studies. snw Data interpreted: Pulse oximetry: on room air is 100 %. Interpretation: normal. Counseling: I had a detailed discussion with the patient and/or guardian regarding: the historical points, exam findings, and any diagnostic results supporting the discharge/admit diagnosis, lab results, radiology results, the need for outpatient follow up, to return to the emergency department if symptoms worsen or persist or if there are any questions or concerns that arise at home. Special discussion: Based on the history and exam findings, there is no indication for further emergent testing or inpatient evaluation. I discussed with the patient/guardian the need to see the primary care provider for further evaluation of the symptoms. 07/11 07:58 Order name: Basic Metabolic Panel; Complete Time: 08:43 snw 07/11 07:58 Order name: CBC with Diff; Complete Time: 08:16 snw 07/11 07:58 Order name: LFT's; Complete Time: 08:43 snw 07/11 07:58 Order name: Magnesium; Complete Time: 08:43 snw 07/11 07:58 Order name: NT PRO-BNP; Complete Time: 08:43 snw 07/11 07:58 Order name: PT-INR; Complete Time: 08:19 snw 07/11 07:58 Order name: Troponin HS; Complete Time: 08:43 snw 07/11 07:58 Order name: XRAY Chest (1 view); Complete Time: 08:43 snw 07/11 07:58 Order name: EKG; Complete Time: 07:59 snw 07/11 07:58 Order name: Cardiac monitoring; Complete Time: 08:00 snw 07/11 07:58 Order name: EKG - Nurse/Tech; Complete Time: 07:59 snw 07/11 07:58 Order name: CT Traumagram (Head C Spine CAP wo con); Complete Time: 08:43 snw 07/11 07:58 Order name: IV Saline Lock; Complete Time: 07:59 snw 07/11 07:58 Order name: Labs collected and sent; Complete Time: 08:00 snw 07/11 07:58 Order name: O2 Per Protocol; Complete Time: 07:59 snw 07/11 07:58 Order name: O2 Sat Monitoring; Complete Time: 07:59 snw EC:05 Rate is 66 beats/min. Rhythm is regular. QRS [place] is Normal. NV interval is normal. QRS snw interval is normal. Clinical impression: NSR w/ Non-specific ST/T Changes. Administered Medications: 08:03 Drug: Aspirin Chewable Tablet 324 mg Route: PO; ko1 09:00 Follow up: Response: No adverse reaction vg1 08:07 Drug: Ketorolac 30 mg Route: IVP; Site: right antecubital; ko1 08:59 Follow up: Response: No adverse reaction; Marked relief of symptoms vg1 Disposition: 13:41 Co-signature as Attending Physician, Brandyn GOMEZ was immediately available on-site ms3 in the Emergency Department for consultation in the care of the patient. Disposition Summary: 07/11/22 08:45 Discharge Ordered Location: Home snw Condition: Stable snw Diagnosis - Other cervical disc degeneration snw - Other intervertebral disc degeneration, lumbosacral region snw Followup: snw - With: Emergency Department - When: As needed - Reason: Worsening of condition Followup: snw - With: Kayode Rodriguez MD - When: 1 - 2 days - Reason: Recheck today's complaints, Continuance of care, Re-evaluation by your physician Discharge Instructions: - Discharge Summary Sheet snw - Musculoskeletal Pain snw - Degenerative Disk Disease snw - How to Use Cold Therapy snw - Heat Therapy snw - Managing Pain Without Opioids snw Forms: - Medication Reconciliation Form snw - Thank You Letter snw - Antibiotic Education snw - Prescription Opioid Use snw Prescriptions: - Mobic 7.5 mg Oral Tablet - take 1 tablet by ORAL route once daily take with food; 10 tablet; Refills: 0, snw Product Selection Permitted Signatures: Dispatcher [employer] Li Gregory, MICHAEL-C PRESS TENDER-Supriya Morelos, RN RN vg1 Brandyn Tafoya, DO ms3 Benita Ny, HARSHAD RN ko1
[2022-07-11 09:10] VITALS: TEMP 97.9
[2022-07-11 09:12] VITALS: BP 149/72; O2SAT 100
--- NOTE | 2022-07-12 15:17 | EKG ---
Test Date: 2022-07-11 Test Time: 07:57:36 Legal Advisor: DAREN MEASUREMENT RESULTS: Intervals: Rate: 66 SC: 136 QRSD: 72 QT: 438 QTc: 459 [place]: P: 79 SC: 136 QRS: 25 T: 77 INTERPRETIVE STATEMENTS: Normal sinus rhythm Normal ECG Compared to ECG 03/03/1997 15:54:00 Short SC interval no longer present Electronically Signed On 07-12-22 15:15:32 INFORMATION CLERK CASHIER by Francesco Brown
== END 2022-07-11 09:04 | disposition home or self-care (01) ==
LOC: ER 07:44
DX: M50.30 Other cervical disc degeneration, unspecified cervical region (principal); M51.37 Other intervertebral disc degeneration, lumbosacral region; I10 Essential (primary) hypertension; F17.220 Nicotine dependence, chewing tobacco, uncomplicated; Z88.8 Allergy status to other drugs, medicaments and biological substances
CPT/HCPCS: 36415; 70450; 71045; 71250; 72125; 80048; 80076; 83735; 83880; 84484; 85025; 85610; 93005; 96374; 99284

== ENCOUNTER 2022-12-24 00:39 | Emergency (ER) | payer BC ==
--- OUTSIDE RECORDS SUMMARY | 2022-12-24 00:53 | XMS REPORT | Continuity of Care Document ---
:1960 Author Organization [facility] t Address [address] [place] [address] [place] [id number] Care Team Providers Name Role Phone Kayode Pereira MD Primary Care Physician CHAPARRO TRAN Attending Clinician Unavailable Kayode Pereira MD Attending Clinician Pob, [facility] Main Attending Clinician Unavailable Ja Sparks MD Attending Clinician JA SPARKS Attending Clinician Unavailable KRISTEN AVENDAÑO Attending Clinician Unavailable Kristen Avendaño MD Attending Clinician [phone] KAYODE PEREIRA Attending Clinician Unavailable Doctor Unassigned, [place] Attending Clinician Unavailable Susy Hernandez MD Attending Clinician SUSY HERNANDEZ Attending Clinician Unavailable CHRISTINA LÓPEZ Attending Clinician Unavailable Only, [facility] Test Attending Clinician Unavailable Christina Lovelace Attending Clinician Robert PATRICIA, Jacqueline Allred Attending Clinician Unavailable Provider, [facility] Attending Clinician Unavailable Donavan RODRIGUEZ Henok Attending Clinician HENOK WYNNE Attending Clinician Unavailable RADIOLOGY Attending Clinician Unavailable Radiology Attending Clinician Unavailable CYDNEY ALARCON Attending Clinician Unavailable Cydney Alarcon DO Attending Clinician Lilia PAC, aTmera S Attending Clinician Ana PATRICIA, Carol East Attending Clinician Unavailable Isabel Fitzgerald DO Attending Clinician Roni Duffy DO Attending Clinician Diya YIP, Margarita Arriaga Attending Clinician Lab, [facility] Fam Pob I Attending Clinician Unavailable JOSE ALFREDO CARVALHO Attending Clinician Unavailable JOSE ALFREDO CARVALHO Attending Clinician Unavailable Inga Galvan MD Attending Clinician INGA GALVAN Attending Clinician Unavailable Jose Alfredo Carvalho MD Attending Clinician Francis, [facility] Attending Clinician Unavailable Diane Mg Attending Clinician Samantha Cardozo Attending Clinician Chaparro Tran MD Attending Clinician Only, [facility] Test Attending Clinician Unavailable Addison Kim Attending Clinician Abram Alarcon Attending Clinician CHAPARRO TRAN Admitting Clinician Unavailable NOAH GUZMAN Admitting Clinician Unavailable CYDNEY ALARCON Admitting Clinician Unavailable Roni Duffy DO Admitting Clinician Chaparro Tran MD Admitting Clinician Payers Payer Name Policy Type Policy Number Effective Date Expiration Date S dennis [facility] FED SELECT [id number] 2005 00:00:00 Problems Condition Condition Condition Status Onset Resolution Last Treating Co mments Source Name Details Category Date Date Treatment Clinician Date Generalize Generalize Disease Active U nivers d anxiety d anxiety 1-13 ity of disorder disorder 00:00: [place] 00 Medical Branch 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:00: [place] unspecifie unspecifie 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 Chronic Chronic Disease Active 2020-07 Univers kidney kidney 2-03 ity of disease, disease, 00:00: [place] stage 2 stage 2 00 Medical (mild) (mild) Branch Solitary Solitary Disease Active 2020-07 Unive rs pulmonary pulmonary 2-03 ity of nodule nodule 00:00: Medical Branch PUD PUD Disease Active Univers (peptic (peptic 9-15 ity of ulcer ulcer 00:00: [place] disease) disease) 00 Medica l Branch Syncope Syncope Disease Active Univers 8-24 ity of 00:00: Medical Branch Hyponatrem Hyponatrem Disease Active U nivers ia ia 8-22 ity of 00:00: Medical Branch M75.102 - M75.102 - Diagnosis Active 2016-02-19 Memoria UNSP UNSP 02-14 11:15:00 l ROTATR-CUF ROTATR-CUF 00:01: [place] F F 00 TEAR/RUPTR TEAR/RUPTR OF OF Active 02/15/2016 MH OPID [place] Left Left Disease Active Univers shoulder shoulder 7-18 ity of pain pain 00:00: Medical Branch Essential Essential Disease Active 2014-07 Uni vers hypertensi hypertensi 2-04 it y of on on 00:00: Medical Branch Allergies, Adverse Reactions, Alerts Allergy Allergy Status Severity Reaction(s) Onset Inactive Treating Comm ents Source Name Type Date Date Clinician HYDROCHL DRUG Active Other-Cmnt Univ ers OROTHIAZ INGREDI 9- ity of FRIDA 00:00: Medical Branch Hydrochl Propensi Active Other - See Hyponatr e Univers orothiaz ty to comments 04-22 branden ity of frida adverse 00:00: [place] reaction 00 Medical s Branch Diphenhy Propensi Active Other - See Causes U nivers dramine ty to comments 02-16 him to be ity of Hcl adverse 00:00: tense and [place] reaction 00 funny Medical s feeling Branch in chest DIPHENHY DRUG Active Other-Cmnt Univ ers DRAMINE INGREDI 7 ity of HCL 00:00: Medical Branch DIPHENHY DRUG Active Other-Cmnt Univ ers DRAMINE INGREDI 02-16 ity of 00:00: Medical Branch Diphenhy Propensi Active Other - See Causes U nivers dramine ty to comments 727 him to be ity of adverse 00:00: tense and [place] reaction 00 funny Medical s feeling Branch in chest Social History Social Habit Start Date Stop Date Quantity Comments Source History of Chews Tobacco University of tobacco use [facility] Alcohol intake 2022-10-19 2022-10-19 0 /d University of 00:00:00 00:00:00 [facility] Exposure to 2022-10-08 2022-10-18 Not sure University SARS-CoV-2 00:00:00 09:23:00 [facility] (event) Branch Tobacco use and 2016-02-08 2016-02-08 User of smokeless Un iversity of exposure 00:00:00 00:00:00 tobacco [facility] Sex [birth year] At [birth year] Universit y of 00:00:00 00:00:00 [facility] Smoking Status Start Date Stop Date Source Never smoked tobacco [facility] Medications Ordered Filled Start Stop Current Ordering Indication Dosage Frequency Signature Comments Components Source Medication Medication Date Date Medication? Clinician (SIG) Name Name sumatriptan Yes [id number] 100mg Take 1 Univers (IMITREX) 5-25 tablet by ity o f 100 mg 00:00: mouth as [place] tablet 00 needed for Medical Migraine. Branch May repeat the dose 2 hours after first dose. Do not take more than 200 mg in any 24-hour period sumatriptan Yes [id number] 100mg Take 1 Univers (IMITREX) 5-25 tablet by ity o f 100 mg 00:00: mouth as [place] tablet 00 needed for Medical Migraine. Branch May repeat the dose 2 hours after first dose. Do not take more than 200 mg in any 24-hour period sumatriptan Yes [id number] 100mg Take 1 Univers (IMITREX) 5-25 tablet by ity o f 100 mg 00:00: mouth as [place] tablet 00 needed for Medical Migraine. Oliver May repeat the dose 2 hours after first dose. Do not take more than 200 mg in any 24-hour period sumatriptan 2022- No [id number] 100mg Take 1 Univers (IMITREX) 5-25 05-25 tablet by ity of 100 mg 00:00: 00:00 mouth as [place] tablet 00 :00 needed for Medical Migraine. Branch May repeat the dose 2 hours after first dose. Do not take more than 200 mg in any 24-hour period HYDROcodone Yes [id number] 1{tbl} Take 1 Un soco -acetaminop 5-24 tablet by ity of hen 5-325 00:00: mouth [place] mg tablet 00 every 6 Medical (six) Branch hours as needed for Pain (scale 4-6). Indication s: chronic pain zolpidem 10 Yes [id number] 10mg Take 1 Univers mg tablet 5-24 tablet by ity o f 00:00: mouth at [place] 00 bedtime as Medical needed for Branch Insomnia. sumatriptan Yes [id number] 100mg Take 1 Univers (IMITREX) 5-24 tablet by ity o f 100 mg 00:00: mouth as [place] tablet 00 needed for Medical Migraine. Branch HYDROcodone Yes [id number] 1{tbl} Take 1 Un soco -acetaminop 5-24 tablet by ity of hen 5-325 00:00: mouth [place] mg tablet 00 every 6 Medical (six) Branch hours as needed for Pain (scale 4-6). Indication s: chronic pain zolpidem 10 Yes [id number] 10mg Take 1 Univers mg tablet 5-24 tablet by ity o f 00:00: mouth at [place] 00 bedtime as Medical needed for Branch Insomnia. HYDROcodone Yes [id number] 1{tbl} Take 1 Un soco -acetaminop 5-24 tablet by ity of hen 5-325 00:00: mouth [place] mg tablet 00 every 6 Medical (six) Branch hours as needed for Pain (scale 4-6). Indication s: chronic pain zolpidem 10 Yes [id number] 10mg Take 1 Univers mg tablet 5-24 tablet by ity o f 00:00: mouth at [place] 00 bedtime as Medical needed for Branch Insomnia. HYDROcodone Yes 2745 1{tbl} Take 1 Un soco -acetaminop 5-24 tablet by ity of hen 5-325 00:00: mouth [place] mg tablet 00 every 6 Medical (six) Branch hours as needed for Pain (scale 4-6). Indication s: chronic pain zolpidem 10 Yes [id number] 10mg Take 1 Univers mg tablet 5-24 tablet by ity o f 00:00: mouth at [place] 00 bedtime as Medical needed for Branch Insomnia. sumatriptan 2022- No [id number] 100mg Take 1 Univers (IMITREX) 5-24 05-25 tablet by ity of 100 mg 00:00: 00:00 mouth as [place] tablet 00 :00 needed for Medical Migraine. Branch sumatriptan 2022- No [id number] 100mg Take 1 Univers (IMITREX) 5-24 05-25 tablet by ity of 100 mg 00:00: 00:00 mouth as [place] tablet 00 :00 needed for Medical Migraine. Branch HYDROCHLORO Yes [id number] 12.5mg TAKE 1 Univers THIAZIDE 4-26 TABLET BY ity of 12.5 mg 00:00: MOUTH [place] tablet 00 EVERY Medical MORNING Branch HYDROCHLORO 0 Yes [id number] 12.5mg TAKE 1 Univers THIAZIDE 4-26 TABLET BY ity of 12.5 mg 00:00: MOUTH [place] tablet 00 EVERY Medical MORNING Branch HYDROCHLORO 0 Yes [id number] 12.5mg TAKE 1 Univers THIAZIDE 4-26 TABLET BY ity of 12.5 mg 00:00: MOUTH [place] tablet 00 EVERY Medical MORNING Branch HYDROCHLORO 0 Yes [id number] 12.5mg TAKE 1 Univers THIAZIDE 4-26 TABLET BY ity of 12.5 mg 00:00: MOUTH [place] tablet 00 EVERY Medical MORNING Branch HYDROCHLORO 0 Yes [id number] 12.5mg TAKE 1 Univers THIAZIDE 4-26 TABLET BY ity of 12.5 mg 00:00: MOUTH [place] tablet 00 EVERY Medical MORNING Branch HYDROCHLORO 0 Yes [id number] 12.5mg TAKE 1 Univers THIAZIDE 4-26 TABLET BY ity of 12.5 mg 00:00: MOUTH [place] tablet 00 EVERY Medical MORNING Branch HYDROcodone 0 Yes [id number] 1{tbl} Take 1 Un soco -acetaminop 4-17 tablet by ity of hen 5-325 00:00: mouth [place] mg tablet 00 every 6 Medical (six) Branch hours as needed for Pain (scale 4-6). Indication s: chronic pain zolpidem 10 Yes [id number] 10mg Take 1 Univers mg tablet 4-17 tablet by ity o f 00:00: mouth at [place] 00 bedtime as Medical needed for Branch Insomnia. sumatriptan Yes [id number] 100mg Take 1 Univers (IMITREX) 4-17 tablet by ity o f 100 mg 00:00: mouth as [place] tablet 00 needed for Medical Migraine. Branch HYDROcodone Yes [id number] 1{tbl} Take 1 Un soco -acetaminop 4-17 tablet by ity of hen 5-325 00:00: mouth [place] mg tablet 00 every 6 Medical (six) Branch hours as needed for Pain (scale 4-6). Indication s: chronic pain zolpidem 10 Yes [id number] 10mg Take 1 Univers mg tablet 4-17 tablet by ity o f 00:00: mouth at [place] 00 bedtime as Medical needed for Branch Insomnia. sumatriptan Yes [id number] 100mg Take 1 Univers (IMITREX) 4-17 tablet by ity o f 100 mg 00:00: mouth as [place] tablet 00 needed for Medical Migraine. Branch HYDROcodone Yes 2745 1{tbl} Take 1 Un soco -acetaminop 4-17 tablet by ity of hen 5-325 00:00: mouth [place] mg tablet 00 every 6 Medical (six) Branch hours as needed for Pain (scale 4-6). Indication s: chronic pain zolpidem 10 0 Yes [id number] 10mg Take 1 Univers mg tablet 4-17 tablet by ity o f 00:00: mouth at [place] 00 bedtime as Medical needed for Branch Insomnia. sumatriptan Yes [id number] 100mg Take 1 Univers (IMITREX) 4-17 tablet by ity o f 100 mg 00:00: mouth as [place] tablet 00 needed for Medical Migraine. Branch HYDROcodone 2022- No 2745 1{tbl} Take 1 U nivers -acetaminop 4-17 05-24 tablet by it y of hen 5-325 00:00: 00:00 mouth [place] mg tablet 00 :00 every 6 Medical (six) Branch hours as needed for Pain (scale 4-6). Indication s: chronic pain zolpidem 10 2022- No [id number] 10mg Take 1 Univers mg tablet 4-17 05-24 tablet by ity of 00:00: 00:00 mouth at [place] 00 :00 bedtime as Medical needed for Branch Insomnia. sumatriptan 2022-0 3- No [id number] 100mg Take 1 Univers (IMITREX) 4-17 -24 tablet by ity of 100 mg 00:00: 00:00 mouth as [place] tablet 00 :00 needed for Medical Migraine. Branch vitamin 2023-0 Yes 500ug Take 1 Univers B-12 500 3-29 tablet by ity of mcg tablet 09:31: mouth once [place] 27 every Medical month. Branch vitamin 2023-0 Yes 500ug Take 1 Univers B-12 500 3-29 tablet by ity of mcg tablet 09:31: mouth once [place] 27 every Medical month. Branch vitamin 2023-0 Yes 500ug Take 1 Univers B-12 500 3-29 tablet by ity of mcg tablet 09:31: mouth once [place] 27 every Medical month. Branch vitamin 2023-0 Yes 500ug Take 1 Univers B-12 500 3-29 tablet by ity of mcg tablet 09:31: mouth once [place] 27 every Medical month. Branch vitamin 3-0 Yes 500ug Take 1 Univers B-12 500 3-29 tablet by ity of mcg tablet 09:31: mouth once [place] 27 every Medical month. Branch vitamin 2023-0 Yes 500ug Take 1 Univers B-12 500 3-29 tablet by ity of mcg tablet 09:31: mouth once [place] 27 every Medical month. Branch vitamin 2023-0 Yes 500ug Take 1 Univers B-12 500 3-29 tablet by ity of mcg tablet 09:31: mouth once [place] 27 every Medical month. Branch vitamin 2023-0 Yes 500ug Take 1 Univers B-12 500 3-29 tablet by ity of mcg tablet 09:31: mouth once [place] 27 every Medical month. Branch vitamin 2023-0 Yes 500ug Take 1 Univers B-12 500 3-29 tablet by ity of mcg tablet 09:31: mouth once [place] 27 every Medical month. Branch fluticasone 2022-0 Yes [id number] 1{spray Use 1 Univers propionate 3-29 } [place] in ity o f 50 00:00: each [place] mcg/actuati 00 nostril in Wy dical on nasal the Branch spray morning. fluticasone 2022-0 Yes [id number] 1{spray Use 1 Univers propionate 3-29 } [place] in it o f 50 00:00: each [place] mcg/actuati 00 nostril in Me dical on nasal the Branch spray morning. fluticasone 2022-0 Yes [id number] 1{spray Use 1 Univers propionate 3-29 } [place] in it o 50 00:00: each [place] mcg/actuati 00 nostril in Me dical on nasal the Branch spray morning. fluticasone 2022-0 Yes [id number] 1{spray Use 1 Univers propionate 3-29 } [place] in it o 50 00:00: each [place] mcg/actuati 00 nostril in Me dical on nasal the Branch spray morning. fluticasone 2022-0 Yes [id number] 1{spray Use 1 Univers propionate 3-29 } [place] in it o 50 00:00: each [place] mcg/actuati 00 nostril in Me dical on nasal the Branch spray morning. fluticasone 2022-0 Yes [id number] 1{spray Use 1 Univers propionate 3-29 } [place] in it o 50 00:00: each [place] mcg/actuati 00 nostril in Me dical on nasal the Branch spray morning. fluticasone 0 Yes [id number] 1{spray Use 1 Univers propionate 3-29 } [place] in it o 50 00:00: each [place] mcg/actuati 00 nostril in Me dical on nasal the Branch spray morning. fluticasone 2022-0 Yes [id number] 1{spray Use 1 Univers propionate 3-29 } [place] in it o 50 00:00: each [place] mcg/actuati 00 nostril in Me dical on nasal the Branch spray morning. fluticasone 2022-0 Yes [id number] 1{spray Use 1 Univers propionate 3-29 } [place] in it o 50 00:00: each [place] mcg/actuati 00 nostril in Me dical on nasal the Branch spray morning. triamcinolo 2022-0 202- No [id number] 40mg Univers ne 3-28 03-28 ity of acetonide 16:00: 15:11 [place] (KENALOG) 00 :00 Medical injection Branch 40 mg triamcinolo 0 2022- No [id number] 40mg 40 mg, Univers ne 10-18 Intramuscu ity of acetonide 16:00: 15:11 lar, ONCE, [place] (KENALOG) 00 :00 1 dose, On Medi dyan injection Tue Branch 40 mg 10/18/22 at 1100, Routine triamcinolo 2022-0 2022- No [id number] 40mg Univers ne 10-18 ity of acetonide 16:00: 15:11 [place] (KENALOG) 00 :00 Medical injection Branch 40 mg triamcinolo 2022- No [id number] 40mg 40 mg, Univers ne 10-18 Intramuscu ity of acetonide 16:00: 15:11 lar, ONCE, [place] (KENALOG) 00 :00 1 dose, On Medi dyan injection Tue Branch 40 mg 10/18/22 at 1100, Routine methylPREDN 2022- No [id number] 80mg Univers ISolone 10-18 ity of acetate 15:45: 15:10 [place] (DEPO-MEDRO 00 :00 Medical L) Branch injection 80 mg methylPREDN 0 2022- No [id number] 80mg 80 mg, Univers ISolone 10-18 Intramuscu ity o f acetate 15:45: 15:10 lar, ONCE, [place] (DEPO-MEDRO 00 :00 1 dose, On Me dical L) Tue Branch injection 10/18/22 at 80 mg 1045, Routine methylPREDN 2022- No [id number] 80mg Univers ISolone 10-18 ity of acetate 15:45: 15:10 [place] (DEPO-MEDRO 00 :00 Medical L) Branch injection 80 mg methylPREDN 0 2022- No [id number] 80mg 80 mg, Univers ISolone 10-18 Intramuscu ity o f acetate 15:45: 15:10 lar, ONCE, [place] (DEPO-MEDRO 00 :00 1 dose, On Me dical L) Tue Branch injection 10/18/22 at 80 mg 1045, Routine HYDROcodone 2023-0 Yes [id number] 1{tbl} Take 1 Un soco -acetaminop 3-27 tablet by ity of hen 5-325 00:00: mouth [place] mg tablet 00 every 6 Medical (six) Branch hours as needed for Pain (scale 4-6). Indication s: chronic pain HYDROcodone 3-0 Yes 2745 1{tbl} Take 1 Un soco -acetaminop 3-27 tablet by ity of hen 5-325 00:00: mouth [place] mg tablet 00 every 6 Medical (six) Branch hours as needed for Pain (scale 4-6). Indication s: chronic pain PROPRANOLOL 2023-0 Yes [id number] TAKE 1 Univers 20 mg 3-27 TABLET BY ity of tablet 00:00: MOUTH IN [place] 00 THE Medical MORNING Branch AND IN THE EVENING HYDROcodone 2022-0 Yes [id number] 1{tbl} Take 1 Un soco -acetaminop 3-27 tablet by ity of hen 5-325 00:00: mouth [place] mg tablet 00 every 6 Medical (six) Branch hours as needed for Pain (scale 4-6). Indication s: chronic pain PROPRANOLOL 3-0 Yes [id number] TAKE 1 Univers 20 mg 3-27 TABLET BY ity of tablet 00:00: MOUTH IN [place] THE Medical MORNING Branch AND IN THE EVENING HYDROcodone 2022-0 Yes [id number] 1{tbl} Take 1 Un soco -acetaminop 3-27 tablet by ity of hen 5-325 00:00: mouth [place] mg tablet 00 every 6 Medical (six) Branch hours as needed for Pain (scale 4-6). Indication s: chronic pain PROPRANOLOL 2023-0 Yes [id number] TAKE 1 Univers 20 mg 3-27 TABLET BY ity of tablet 00:00: MOUTH IN [place] [address] THE Medical MORNING Branch AND IN THE EVENING HYDROcodone 3-0 Yes [id number] 1{tbl} Take 1 Un soco -acetaminop 3-27 tablet by ity of hen 5-325 00:00: mouth [place] mg tablet 00 every 6 Medical (six) Branch hours as needed for Pain (scale 4-6). Indication s: chronic pain PROPRANOLOL 2023-0 Yes [id number] TAKE 1 Univers 20 mg 3-27 TABLET BY ity of tablet 00:00: MOUTH IN [place] 00 THE Medical MORNING Branch AND IN THE EVENING HYDROcodone 3-0 Yes [id number] 1{tbl} Take 1 Un soco -acetaminop 3-27 tablet by ity of hen 5-325 00:00: mouth [place] mg tablet 00 every 6 Medical (six) Branch hours as needed for Pain (scale 4-6). Indication s: chronic pain PROPRANOLOL 2022-0 Yes [id number] TAKE 1 Univers 20 mg 3-27 TABLET BY ity of tablet 00:00: MOUTH IN [place] 00 THE Medical MORNING Branch AND IN THE EVENING PROPRANOLOL 0 Yes [id number] TAKE 1 Univers 20 mg 3-27 TABLET BY ity of tablet 00:00: MOUTH IN [place] [address] THE Medical MORNING Branch AND IN THE EVENING PROPRANOLOL 0 Yes [id number] TAKE 1 Univers 20 mg 3-27 TABLET BY ity of tablet 00:00: MOUTH IN [place] [address] THE Medical MORNING Branch AND IN THE EVENING PROPRANOLOL Yes [id number] TAKE 1 Univers 20 mg 3-27 TABLET BY ity of tablet 00:00: MOUTH IN [place] [address] THE Medical MORNING Branch AND IN THE EVENING PROPRANOLOL Yes [id number] TAKE 1 Univers 20 mg 3-27 TABLET BY ity of tablet 00:00: MOUTH IN [place] [address] THE Medical MORNING Branch AND IN THE EVENING PROPRANOLOL 0 Yes [id number] TAKE 1 Univers 20 mg 3-27 TABLET BY ity of tablet 00:00: MOUTH IN [place] 00 THE Medical MORNING Branch AND IN THE EVENING PROPRANOLOL 0 Yes [id number] TAKE 1 Univers 20 mg 3-27 TABLET BY ity of tablet 00:00: MOUTH IN [place] [address] THE Medical MORNING Branch AND IN THE EVENING PROPRANOLOL 0 Yes [id number] TAKE 1 Univers 20 mg 3-27 TABLET BY ity of tablet 00:00: MOUTH IN [place] [address] THE Medical MORNING Branch AND IN THE EVENING HYDROcodone 2022- No [id number] 1{tbl} Take 1 U nivers -acetaminop 3-27 04-17 tablet by it y of hen 5-325 00:00: 00:00 mouth [place] mg tablet 00 :00 every 6 Medical (six) Branch hours as needed for Pain (scale 4-6). Indication s: chronic pain HYDROcodone 2022-0 Yes 2745 1{tbl} Take 1 Un soco -acetaminop 2-22 tablet by ity of hen 5-325 00:00: mouth [place] mg tablet 00 every 6 Medical (six) Branch hours as needed for Pain (scale 4-6). Indication s: chronic pain HYDROcodone 2023-0 Yes 2745 1{tbl} Take 1 Un soco -acetaminop 2-22 tablet by ity of hen 5-325 00:00: mouth [place] mg tablet 00 every 6 Medical (six) Branch hours as needed for Pain (scale 4-6). Indication s: chronic pain HYDROcodone 2023-0 Yes 2745 1{tbl} Take 1 Un soco -acetaminop 2-22 tablet by ity of hen 5-325 00:00: mouth [place] mg tablet 00 every 6 Medical (six) Branch hours as needed for Pain (scale 4-6). Indication s: chronic pain HYDROcodone 2023-0 Yes 2745 1{tbl} Take 1 Un soco -acetaminop 2-22 tablet by ity of hen 5-325 00:00: mouth [place] mg tablet 00 every 6 Medical (six) Branch hours as needed for Pain (scale 4-6). Indication s: chronic pain HYDROcodone 2023-0 2022- No 2745 1{tbl} Take 1 U nivers -acetaminop 2-22 03-27 tablet by it y of hen 5-325 00:00: 00:00 mouth [place] mg tablet 00 :00 every 6 Medical (six) Branch hours as needed for Pain (scale 4-6). Indication s: chronic pain hydrALAZINE 2023-0 Yes 25mg Take 1 Univ ers 25 mg 2-07 tablet by ity of tablet 00:00: mouth in [place] 00 the Medical morning Branch and 1 tablet at noon and 1 tablet in the evening. Take 1 tablet (25 mg total) by mouth in the morning and 1 tablet (25 mg total) in the evening and 1 tablet (25 mg total) before bedtime. Hold if top bp number is less than 110. Monitor bp and pulse as we discussed. SERTraline 2023-0 Yes 100mg Take 2 Univ ers 50 mg 2-07 tablets by ity of tablet 00:00: mouth in [place] 00 the Medical morning. Branch hydrALAZINE 2023-0 Yes 25mg Take 1 Univ ers 25 mg 2-07 tablet by ity of tablet 00:00: mouth in [place] 00 the Medical morning Branch and 1 tablet at noon and 1 tablet in the evening. Take 1 tablet (25 mg total) by mouth in the morning and 1 tablet (25 mg total) in the evening and 1 tablet (25 mg total) before bedtime. Hold if top bp number is less than 110. Monitor bp and pulse as we discussed. SERTraline 2023-0 Yes 100mg Take 2 Univ ers 50 mg 2-07 tablets by ity of tablet 00:00: mouth in [place] the morning. Branch hydrALAZINE 2023-0 Yes 25mg Take 1 Univ ers 25 mg 2-07 tablet by ity of tablet 00:00: mouth in [place] the morning Branch and 1 tablet at noon and 1 tablet in the evening. Take 1 tablet (25 mg total) by mouth in the morning and 1 tablet (25 mg total) in the evening and 1 tablet (25 mg total) before bedtime. Hold if top bp number is less than 110. Monitor bp and pulse as we discussed. SERTraline 2023-0 Yes 100mg Take 2 Univ ers 50 mg 2-07 tablets by ity of tablet 00:00: mouth in [place] the . Branch hydrALAZINE 2023-0 Yes 25mg Take 1 Univ ers 25 mg 2-07 tablet by ity of tablet 00:00: mouth in [place] the morning Branch and 1 tablet at noon and 1 tablet in the evening. Take 1 tablet (25 mg total) by mouth in the morning and 1 tablet (25 mg total) in the evening and 1 tablet (25 mg total) before bedtime. Hold if top bp number is less than 110. Monitor bp and pulse as we discussed. SERTraline 2023-0 Yes 100mg Take 2 Univ ers 50 mg 2-07 tablets by ity of tablet 00:00: mouth in [place] the morning. Branch hydrALAZINE 2023-0 Yes 25mg Take 1 Univ ers 25 mg 2-07 tablet by ity of tablet 00:00: mouth in [place] [address] the morning Branch and 1 tablet at noon and 1 tablet in the evening. Take 1 tablet (25 mg total) by mouth in the morning and 1 tablet (25 mg total) in the evening and 1 tablet (25 mg total) before bedtime. Hold if top bp number is less than 110. Monitor bp and pulse as we discussed. SERTraline 2023-0 Yes 100mg Take 2 Univ ers 50 mg 2-07 tablets by ity of tablet 00:00: mouth in [place] the morning. Branch hydrALAZINE 2023-0 Yes 25mg Take 1 Univ ers 25 mg 2-07 tablet by ity of tablet 00:00: mouth in [place] the Medical morning Branch and 1 tablet at noon and 1 tablet in the evening. Take 1 tablet (25 mg total) by mouth in the morning and 1 tablet (25 mg total) in the evening and 1 tablet (25 mg total) before bedtime. Hold if top bp number is less than 110. Monitor bp and pulse as we discussed. SERTraline 2023-0 Yes 100mg Take 2 Univ ers 50 mg 2-07 tablets by ity of tablet 00:00: mouth in [place] the morning. Branch hydrALAZINE 2023-0 Yes 25mg Take 1 Univ ers 25 mg 2-07 tablet by ity of tablet 00:00: mouth in [place] [address] the morning Branch and 1 tablet at noon and 1 tablet in the evening. Take 1 tablet (25 mg total) by mouth in the morning and 1 tablet (25 mg total) in the evening and 1 tablet (25 mg total) before bedtime. Hold if top bp number is less than 110. Monitor bp and pulse as we discussed. SERTraline 2023-0 Yes 100mg Take 2 [facility] 50 mg 2-07 tablets by [facility] tablet 00:00: mouth in [place] the morning. Branch hydrALAZINE 2023-0 Yes 25mg Take 1 [facility] 25 mg 2-07 tablet by [facility] of tablet 00:00: mouth in [place] the Medical morning Branch and 1 tablet at noon and 1 tablet in the evening. Take 1 tablet (25 mg total) by mouth in the morning and 1 tablet (25 mg total) in the evening and 1 tablet (25 mg total) before bedtime. Hold if top bp number is less than 110. Monitor bp and pulse as we discussed. SERTraline 2023-0 Yes 100mg Take 2 [facility] 50 mg 2-07 tablets by [facility] of tablet 00:00: mouth in [place] the morning. Branch hydrALAZINE 2023-0 Yes 25mg Take 1 [facility] 25 mg 2-07 tablet by [facility] of tablet 00:00: mouth in [place] [address] the Medical morning Branch and 1 tablet at noon and 1 tablet in the evening. Take 1 tablet (25 mg total) by mouth in the morning and 1 tablet (25 mg total) in the evening and 1 tablet (25 mg total) before bedtime. Hold if top bp number is less than 110. Monitor bp and pulse as we discussed. SERTraline 0 Yes 100mg Take 2 [facility] 50 mg 2-07 tablets by [facility] of tablet 00:00: mouth in [place] 00 the Medical morning. Branch HYDROcodone 2022-0 Yes 2745 1{tbl} Take 1 [facility] -acetaminop 1-30 tablet by [facility] of hen 5-325 00:00: mouth [place] mg tablet 00 every 6 Medical (six) Branch hours as needed for Pain (scale 4-6). Indication s: chronic pain HYDROcodone 2022-0 Yes 2745 1{tbl} Take 1 [facility] -acetaminop 1-30 tablet by [facility] of hen 5-325 00:00: mouth [place] mg tablet 00 every 6 Medical (six) Branch hours as needed for Pain (scale 4-6). Indication s: chronic pain HYDROcodone 2022-0 Yes 2745 1{tbl} Take 1 [facility] -acetaminop 1-30 tablet by [facility] of hen 5-325 00:00: mouth [place] mg tablet 00 every 6 Medical (six) Branch hours as needed for Pain (scale 4-6). Indication s: chronic pain HYDROcodone 2022-0 Yes 2745 1{tbl} Take 1 [facility] -acetaminop 1-30 tablet by [facility] of hen 5-325 00:00: mouth [place] mg tablet 00 every 6 Medical (six) Branch hours as needed for Pain (scale 4-6). Indication s: chronic pain HYDROcodone 2022-0 3- No 2745 1{tbl} Take 1 [facility] -acetaminop 1-30 02-22 tablet by it y of hen 5-325 00:00: 00:00 mouth [place] mg tablet 00 :00 every 6 Medical (six) Branch hours as needed for Pain (scale 4-6). Indication s: chronic pain HYDROcodone 2022-0 2022- No 2745 1{tbl} Take 1 [facility] -acetaminop 1-30 02-22 tablet by it y of hen 5-325 00:00: 00:00 mouth [place] mg tablet 00 :00 every 6 Medical (six) Branch hours as needed for Pain (scale 4-6). Indication s: chronic pain sumatriptan 3-0 Yes [id number] 100mg Take 1 [facility] (IMITREX) 1-23 tablet by ity o f 100 mg 00:00: mouth as [place] tablet 00 needed for Medical Migraine. Branch sumatriptan 2022-0 Yes [id number] 100mg Take 1 [facility] (IMITREX) 1-23 tablet by ity o f 100 mg 00:00: mouth as [place] tablet 00 needed for Medical Migraine. Branch sumatriptan 3-0 Yes [id number] 100mg Take 1 [facility] (IMITREX) 1-23 tablet by ity o f 100 mg 00:00: mouth as [place] tablet 00 needed for Medical Migraine. Branch sumatriptan 2022-0 Yes [id number] 100mg Take 1 [facility] (IMITREX) 1-23 tablet by ity o f 100 mg 00:00: mouth as [place] tablet 00 needed for Medical Migraine. Branch sumatriptan 2022-0 Yes [id number] 100mg Take 1 [facility] (IMITREX) 1-23 tablet by ity o f 100 mg 00:00: mouth as [place] tablet 00 needed for Medical Migraine. Branch sumatriptan 2022-0 Yes [id number] 100mg Take 1 [facility] (IMITREX) 1-23 tablet by ity o f 100 mg 00:00: mouth as [place] tablet 00 needed for Medical Migraine. Branch sumatriptan 2022-0 Yes [id number] 100mg Take 1 [facility] (IMITREX) 1-23 tablet by ity o f 100 mg 00:00: mouth as [place] tablet 00 needed for Medical Migraine. Branch sumatriptan 3-0 Yes [id number] 100mg Take 1 [facility] (IMITREX) 1-23 tablet by ity o f 100 mg 00:00: mouth as [place] tablet 00 needed for Medical Migraine. Branch sumatriptan 3-0 Yes [id number] 100mg Take 1 [facility] (IMITREX) 1-23 tablet by ity o f 100 mg 00:00: mouth as [place] tablet 00 needed for Medical Migraine. Branch sumatriptan 3-0 Yes [id number] 100mg Take 1 [facility] (IMITREX) 1-23 tablet by ity o f 100 mg 00:00: mouth as [place] tablet 00 needed for Medical Migraine. Branch sumatriptan 2022-0 Yes [id number] 100mg Take 1 [facility] (IMITREX) 1-23 tablet by ity o f 100 mg 00:00: mouth as [place] tablet 00 needed for Medical Migraine. Branch sumatriptan 2022-0 Yes [id number] 100mg Take 1 [facility] (IMITREX) 1-23 tablet by ity o f 100 mg 00:00: mouth as [place] tablet 00 needed for Medical Migraine. Branch sumatriptan 2022-0 Yes [id number] 100mg Take 1 [facility] (IMITREX) 1-23 tablet by ity o f 100 mg 00:00: mouth as [place] tablet 00 needed for Medical Migraine. Branch sumatriptan 2022-0 Yes [id number] 100mg Take 1 [facility] (IMITREX) 1-23 tablet by ity o f 100 mg 00:00: mouth as [place] tablet 00 needed for Medical Migraine. Branch sumatriptan 2022-0 Yes [id number] 100mg Take 1 [facility] (IMITREX) 1-23 tablet by ity o f 100 mg 00:00: mouth as [place] tablet 00 needed for Medical Migraine. Branch sumatriptan 0 Yes [id number] 100mg Take 1 [facility] (IMITREX) 1-23 tablet by ity o f 100 mg 00:00: mouth as [place] tablet 00 needed for Medical Migraine. Branch sumatriptan 2022-0 Yes [id number] 100mg Take 1 [facility] (IMITREX) 1-23 tablet by ity o f 100 mg 00:00: mouth as [place] tablet 00 needed for Medical Migraine. Branch sumatriptan 2022-0 Yes [id number] 100mg Take 1 [facility] (IMITREX) 1-23 tablet by ity o f 100 mg 00:00: mouth as [place] tablet 00 needed for Medical Migraine. Branch sumatriptan 2022-0 Yes [id number] 100mg Take 1 [facility] (IMITREX) 1-23 tablet by ity o f 100 mg 00:00: mouth as [place] tablet 00 needed for Medical Migraine. Branch sumatriptan 2022-0 3- No [id number] 100mg Take 1 [facility] (IMITREX) 1-23 04-17 tablet by [facility] of 100 mg 00:00: 00:00 mouth as [place] tablet 00 :00 needed for Medical Migraine. Branch propranoloL 2021-07 Yes [id number] 20mg Take 1 [facility] 20 mg 2-29 tablet by [facility] of tablet 00:00: mouth in [place] 00 the Medical morning Branch and 1 tablet in the evening. sumatriptan 2021-07 Yes [id number] 100mg Take 1 [facility] (IMITREX) 2-29 tablet by ity o f 100 mg 00:00: mouth as [place] tablet 00 needed for Medical Migraine. Branch propranoloL 2021-07 Yes [id number] 20mg Take 1 [facility] 20 mg 2-29 tablet by [facility] of tablet 00:00: mouth in [place] 00 the Medical morning Branch and 1 tablet in the evening. sumatriptan 2021-07 Yes [id number] 100mg Take 1 [facility] (IMITREX) 2-29 tablet by ity o f 100 mg 00:00: mouth as [place] tablet 00 needed for Medical Migraine. Branch propranoloL 2021-07 Yes [id number] 20mg Take 1 [facility] 20 mg 2-29 tablet by [facility] of tablet 00:00: mouth in [place] 00 the Medical morning Branch and 1 tablet in the evening. sumatriptan 2021-07 Yes [id number] 100mg Take 1 [facility] (IMITREX) 2-29 tablet by ity o f 100 mg 00:00: mouth as [place] tablet 00 needed for Medical Migraine. Branch propranoloL 2021-07 Yes [id number] 20mg Take 1 [facility] 20 mg 2-29 tablet by [facility] of tablet 00:00: mouth in [place] 00 the Medical morning Branch and 1 tablet in the evening. sumatriptan 2021-07 Yes [id number] 100mg Take 1 [facility] (IMITREX) 2-29 tablet by ity o f 100 mg 00:00: mouth as [place] tablet 00 needed for Medical Migraine. Branch propranoloL 2021-07 Yes [id number] 20mg Take 1 [facility] 20 mg 2-29 tablet by [facility] of tablet 00:00: mouth in [place] 00 the Medical morning Branch and 1 tablet in the evening. sumatriptan 2021-07 Yes [id number] 100mg Take 1 [facility] (IMITREX) 2-29 tablet by ity o f 100 mg 00:00: mouth as [place] tablet 00 needed for Medical Migraine. Branch propranoloL 2021-07 Yes [id number] 20mg Take 1 [facility] 20 mg 2-29 tablet by [facility] of tablet 00:00: mouth in [place] 00 the Medical morning Branch and 1 tablet in the evening. propranoloL 2021-1 Yes [id number] 20mg Take 1 [facility] 20 mg 2-29 tablet by [facility] of tablet 00:00: mouth in [place] [address] the Medical morning Branch and 1 tablet in the evening. propranoloL 2022-1 Yes [id number] 20mg Take 1 [facility] 20 mg 2-29 tablet by [facility] of tablet 00:00: mouth in [place] [address] the Medical morning Branch and 1 tablet in the evening. propranoloL 2022-1 Yes [id number] 20mg Take 1 [facility] 20 mg 2-29 tablet by [facility] of tablet 00:00: mouth in [place] [address] the Medical morning Branch and 1 tablet in the evening. propranoloL 2-1 Yes [id number] 20mg Take 1 [facility] 20 mg 2-29 tablet by [facility] of tablet 00:00: mouth in [place] [address] the Medical morning Branch and 1 tablet in the evening. propranoloL 2021-1 Yes [id number] 20mg Take 1 [facility] 20 mg 2-29 tablet by [facility] of tablet 00:00: mouth in [place] [address] the Medical morning Branch and 1 tablet in the evening. propranoloL 2021-1 Yes [id number] 20mg Take 1 [facility] 20 mg 2-29 tablet by [facility] of tablet 00:00: mouth in [place] [address] the Medical morning Branch and 1 tablet in the evening. propranoloL 2021-1 Yes [id number] 20mg Take 1 [facility] 20 mg 2-29 tablet by [facility] of tablet 00:00: mouth in [place] [address] the Medical morning Branch and 1 tablet in the evening. propranoloL 2021-1 Yes [id number] 20mg Take 1 [facility] 20 mg 2-29 tablet by [facility] of tablet 00:00: mouth in [place] [address] the Medical morning [place] and 1 tablet in the evening. propranoloL 2-1 Yes [id number] 20mg Take 1 [facility] 20 mg 2-29 tablet by [facility] of tablet 00:00: mouth in [place] [address] the Medical morning Branch and 1 tablet in the evening. propranoloL 2022-1 Yes [id number] 20mg Take 1 [facility] 20 mg 2-29 tablet by [facility] of tablet 00:00: mouth in [place] [address] the Medical morning Branch and 1 tablet in the evening. propranoloL 2022-1 Yes [id number] 20mg Take 1 [facility] 20 mg 2-29 tablet by [facility] of tablet 00:00: mouth in [place] [address] the Medical morning Branch and 1 tablet in the evening. propranoloL 2022-1 Yes [id number] 20mg Take 1 [facility] 20 mg 2-29 tablet by [facility] of tablet 00:00: mouth in [place] 00 the Medical morning Branch and 1 tablet in the evening. propranoloL 2021-07 Yes [id number] 20mg Take 1 [facility] 20 mg 2-29 tablet by [facility] of tablet 00:00: mouth in [place] 00 the Medical morning Branch and 1 tablet in the evening. propranoloL 2021-07- No [id number] 20mg Take 1 [facility] 20 mg 2-19 10- tablet by [facility] of tablet 00:00: 00:00 mouth in [place] 00 :00 the Medical morning Branch and 1 tablet in the evening. sumatriptan 2021-07- No [id number] 100mg Take 1 [facility] (IMITREX) 2-21 08- tablet by [facility] of 100 mg 00:00: 00:00 mouth as [place] tablet 00 :00 needed for Medical Migraine. Branch sumatriptan 2021-07- No [id number] 100mg Take 1 [facility] (IMITREX) 2-21 08- tablet by ity of 100 mg 00:00: 00:00 mouth as [place] tablet 00 :00 needed for Medical Migraine. Branch HYDROcodone 2021-07 Yes [id number] 1{tbl} Take 1 [facility] -acetaminop 2-28 tablet by [facility] of hen 5-325 00:00: mouth [place] mg tablet 00 every 6 Medical (six) Branch hours as needed for Pain (scale 4-6). Indication s: chronic pain HYDROcodone 2021-07 Yes 2745 1{tbl} Take 1 [facility] -acetaminop 2-28 tablet by [facility] of hen 5-325 00:00: mouth [place] mg tablet 00 every 6 Medical (six) Branch hours as needed for Pain (scale 4-6). Indication s: chronic pain HYDROcodone 2021-07 Yes 2745 1{tbl} Take 1 [facility] -acetaminop 2-28 tablet by [facility] of hen 5-325 00:00: mouth [place] mg tablet 00 every 6 Medical (six) Branch hours as needed for Pain (scale 4-6). Indication s: chronic pain HYDROcodone 2021-07 Yes 2745 1{tbl} Take 1 [facility] -acetaminop 2-28 tablet by [facility] of hen 5-325 00:00: mouth [place] mg tablet 00 every 6 Medical (six) Branch hours as needed for Pain (scale 4-6). Indication s: chronic pain HYDROcodone 2021-07 Yes 2745 1{tbl} Take 1 [facility] -acetaminop 2-28 tablet by [facility] of hen 5-325 00:00: mouth [place] mg tablet 00 every 6 Medical (six) Branch hours as needed for Pain (scale 4-6). Indication s: chronic pain HYDROcodone 2021-07 Yes 2745 1{tbl} Take 1 [facility] -acetaminop 2-28 tablet by [facility] of hen 5-325 00:00: mouth [place] mg tablet 00 every 6 Medical (six) Branch hours as needed for Pain (scale 4-6). Indication s: chronic pain HYDROcodone 2021-07 Yes 2745 1{tbl} Take 1 [facility] -acetaminop 2-28 tablet by [facility] of hen 5-325 00:00: mouth [place] mg tablet 00 every 6 Medical (six) Branch hours as needed for Pain (scale 4-6). Indication s: chronic pain HYDROcodone 2021-07 Yes 2745 1{tbl} Take 1 [facility] -acetaminop 2-28 tablet by [facility] of hen 5-325 00:00: mouth [place] mg tablet 00 every 6 Medical (six) Branch hours as needed for Pain (scale 4-6). Indication s: chronic pain HYDROcodone 2021-07 Yes 2745 1{tbl} Take 1 [facility] -acetaminop 2-28 tablet by [facility] of hen 5-325 00:00: mouth [place] mg tablet 00 every 6 Medical (six) Branch hours as needed for Pain (scale 4-6). Indication s: chronic pain HYDROcodone 2021-07- No 2745 1{tbl} Take 1 [facility] -acetaminop 2-28 01-30 tablet by it y of hen 5-325 00:00: 00:00 mouth [place] mg tablet 00 :00 every 6 Medical (six) Branch hours as needed for Pain (scale 4-6). Indication s: chronic pain HYDROcodone 2021-07 No 2745 1{tbl} Take 1 [facility] -acetaminop 2-28 01-30 tablet by it y of hen 5-325 00:00: 00:00 mouth [place] mg tablet 00 :00 every 6 Medical (six) Branch hours as needed for Pain (scale 4-6). Indication s: chronic pain butalbital- 2021-07 Yes [id number] 1{capsu Take 1 [facility] aspirin-caf 2-23 le} capsule by it y of feine 00:00: mouth [place] (FIORINAL) 00 every 4 Medica l 50-325-40 (four) Branch mg per hours as capsule needed for Pain. butalbital- 2021-07 Yes [id number] 1{capsu Take 1 [facility] aspirin-caf 2-23 le} capsule by it y of feine 00:00: mouth [place] (FIORINAL) 00 every 4 Medica l 50-325-40 (four) Branch mg per hours as capsule needed for Pain. butalbital- 2021-07 Yes [id number] 1{capsu Take 1 [facility] aspirin-caf 2-23 le} capsule by it y of feine 00:00: mouth [place] (FIORINAL) 00 every 4 Medica l 50-325-40 (four) Branch mg per hours as capsule needed for Pain. butalbital- 2021-07 Yes [id number] 1{capsu Take 1 [facility] aspirin-caf 2-23 le} capsule by it y of feine 00:00: mouth [place] (FIORINAL) 00 every 4 Medica l 50-325-40 (four) Branch mg per hours as capsule needed for Pain. butalbital- 2021-07 Yes [id number] 1{capsu Take 1 [facility] aspirin-caf 2-23 le} capsule by it y of feine 00:00: mouth [place] (FIORINAL) 00 every 4 Medica l 50-325-40 (four) Branch mg per hours as capsule needed for Pain. butalbital- 2021-07 Yes [id number] 1{capsu Take 1 [facility] aspirin-caf 2-23 le} capsule by it y of feine 00:00: mouth [place] (FIORINAL) 00 every 4 Medica l 50-325-40 (four) Branch mg per hours as capsule needed for Pain. butalbital- 2021-07 Yes [id number] 1{capsu Take 1 [facility] aspirin-caf 2-23 le} capsule by it y of feine 00:00: mouth [place] (FIORINAL) 00 every 4 Medica l 50-325-40 (four) Branch mg per hours as capsule needed for Pain. butalbital- 2021-07 Yes [id number] 1{capsu Take 1 [facility] aspirin-caf 2-23 le} capsule by it y of feine 00:00: mouth [place] (FIORINAL) 00 every 4 Medica l 50-325-40 (four) Branch mg per hours as capsule needed for Pain. butalbital- 2021-07 Yes [id number] 1{capsu Take 1 [facility] aspirin-caf 2-23 le} capsule by it y of feine 00:00: mouth [place] (FIORINAL) 00 every 4 Medica l 50-325-40 (four) Branch mg per hours as capsule needed for Pain. butalbital- 2021-07 Yes [id number] 1{capsu Take 1 [facility] aspirin-caf 2-23 le} capsule by it y of feine 00:00: mouth [place] (FIORINAL) 00 every 4 Medica l 50-325-40 (four) Branch mg per hours as capsule needed for Pain. butalbital- 2021-07 Yes [id number] 1{capsu Take 1 [facility] aspirin-caf 2-23 le} capsule by it y of feine 00:00: mouth [place] (FIORINAL) 00 every 4 Medica l 50-325-40 (four) Branch mg per hours as capsule needed for Pain. albital- 2021-07 Yes [id number] 1{capsu Take 1 [facility] aspirin-caf 2-23 le} capsule by it y of feine 00:00: mouth [place] (FIORINAL) 00 every 4 Medica l 50-325-40 (four) Branch mg per hours as capsule needed for Pain. butalbital2021-07 Yes [id number] 1{capsu Take 1 [facility] aspirin-caf 2-23 le} capsule by it y of feine 00:00: mouth [place] (FIORINAL) 00 every 4 Medica l 50-325-40 (four) Branch mg per hours as capsule needed for Pain. butalbital2021-07 Yes [id number] 1{capsu Take 1 [facility] aspirin-caf 2-23 le} capsule by it y of feine 00:00: mouth [place] (FIORINAL) 00 every 4 Medica l 50-325-40 (four) Branch mg per hours as capsule needed for Pain. butalbital- 2021-07 Yes [id number] 1{capsu Take 1 [facility] aspirin-caf 2-23 le} capsule by it y of feine 00:00: mouth [place] (FIORINAL) 00 every 4 Medica l 50-325-40 (four) Branch mg per hours as capsule needed for Pain. butalbital- 2021-07 Yes [id number] 1{capsu Take 1 [facility] aspirin-caf 2-23 le} capsule by it y of feine 00:00: mouth [place] (FIORINAL) 00 every 4 Medica l 50-325-40 (four) Branch mg per hours as capsule needed for Pain. butalbital- 2021-07 Yes [id number] 1{capsu Take 1 [facility] aspirin-caf 2-23 le} capsule by it y of feine 00:00: mouth [place] (FIORINAL) 00 every 4 Medica l 50-325-40 (four) Branch mg per hours as capsule needed for Pain. butalbital2021-07 Yes [id number] 1{capsu Take 1 [facility] aspirin-caf 2-23 le} capsule by it y of feine 00:00: mouth [place] (FIORINAL) 00 every 4 Medica l 50-325-40 (four) Branch mg per hours as capsule needed for Pain. albital2021-07 Yes [id number] 1{capsu Take 1 [facility] aspirin-caf 2-23 le} capsule by it y of feine 00:00: mouth [place] (FIORINAL) 00 every 4 Medica l 50-325-40 (four) Branch mg per hours as capsule needed for Pain. butalbital2021-07 Yes [id number] 1{capsu Take 1 [facility] aspirin-caf 2-23 le} capsule by it y of feine 00:00: mouth [place] (FIORINAL) 00 every 4 Medica l 50-325-40 (four) Branch mg per hours as capsule needed for Pain. butalbital2021-07 Yes [id number] 1{capsu Take 1 [facility] aspirin-caf 2-23 le} capsule by it y of feine 00:00: mouth [place] (FIORINAL) 00 every 4 Medica l 50-325-40 (four) Branch mg per hours as capsule needed for Pain. butalbital2021-07 Yes [id number] 1{capsu Take 1 [facility] aspirin-caf 2-23 le} capsule by it y of feine 00:00: mouth [place] (FIORINAL) 00 every 4 Medica l 50-325-40 (four) Branch mg per hours as capsule needed for Pain. butalbital2021-07 Yes [id number] 1{capsu Take 1 [facility] aspirin-caf 2-23 le} capsule by it y of feine 00:00: mouth [place] (FIORINAL) 00 every 4 Medica l 50-325-40 (four) Branch mg per hours as capsule needed for Pain. albital2021-07 Yes [id number] 1{capsu Take 1 [facility] aspirin-caf 2-23 le} capsule by it y of feine 00:00: mouth [place] (FIORINAL) 00 every 4 Medica l 50-325-40 (four) Branch mg per hours as capsule needed for Pain. albital2021-07 Yes [id number] 1{capsu Take 1 [facility] aspirin-caf 2-23 le} capsule by it y of feine 00:00: mouth [place] (FIORINAL) 00 every 4 Medica l 50-325-40 (four) Branch mg per hours as capsule needed for Pain. bital2021-07 Yes [id number] 1{capsu Take 1 [facility] aspirin-caf 2-23 le} capsule by it y of feine 00:00: mouth [place] (FIORINAL) 00 every 4 Medica l 50-325-40 (four) Branch mg per hours as capsule needed for Pain. butalbital2021-07 Yes [id number] 1{capsu Take 1 [facility] aspirin-caf 2-23 le} capsule by it y of feine 00:00: mouth [place] (FIORINAL) 00 every 4 Medica l 50-325-40 (four) Branch mg per hours as capsule needed for Pain. butalbital2021-07 Yes [id number] 1{capsu Take 1 [facility] aspirin-caf 2-23 le} capsule by it y of feine 00:00: mouth [place] (FIORINAL) 00 every 4 Medica l 50-325-40 (four) Branch mg per hours as capsule needed for Pain. butalbital2021-07 Yes [id number] 1{capsu Take 1 [facility] aspirin-caf 2-23 le} capsule by it y of feine 00:00: mouth [place] (FIORINAL) 00 every 4 Medica l 50-325-40 (four) Branch mg per hours as capsule needed for Pain. butalbital- 2021-07 Yes [id number] 1{capsu Take 1 [facility] aspirin-caf 2-23 le} capsule by it y of feine 00:00: mouth [place] (FIORINAL) 00 every 4 Medica l 50-325-40 (four) Branch mg per hours as capsule needed for Pain. butalbital- 2021-07 Yes [id number] 1{capsu Take 1 [facility] aspirin-caf 2-23 le} capsule by it y of feine 00:00: mouth [place] (FIORINAL) 00 every 4 Medica l 50-325-40 (four) Branch mg per hours as capsule needed for Pain. albital2021-07 Yes [id number] 1{capsu Take 1 [facility] aspirin-caf 2-23 le} capsule by it y of feine 00:00: mouth [place] (FIORINAL) 00 every 4 Medica l 50-325-40 (four) Branch mg per hours as capsule needed for Pain. albital2021-07 Yes [id number] 1{capsu Take 1 [facility] aspirin-caf 2-23 le} capsule by it y of feine 00:00: mouth [place] (FIORINAL) 00 every 4 Medica l 50-325-40 (four) Branch mg per hours as capsule needed for Pain. butalbital2021-07 Yes [id number] 1{capsu Take 1 [facility] aspirin-caf 2-23 le} capsule by it y of feine 00:00: mouth [place] (FIORINAL) 00 every 4 Medica l 50-325-40 (four) Branch mg per hours as capsule needed for Pain. meloxicam 2021-07 Yes 7.5mg Take 7.5 [facility] vers 7.5 mg 2-20 mg by [facility] of tablet 00:00: mouth in [place] the Medical morning. Branch meloxicam 2021-07 Yes 7.5mg Take 7.5 [facility] vers 7.5 mg 2-20 mg by [facility] of tablet 00:00: mouth in [place] the Medical morning. Branch meloxicam 2021-07 Yes 7.5mg Take 7.5 [facility] vers 7.5 mg 2-20 mg by [facility] of tablet 00:00: mouth in [place] the Medical morning. Branch meloxicam 2021-07 Yes 7.5mg Take 7.5 [facility] vers 7.5 mg 2-20 mg by [facility] of tablet 00:00: mouth in [place] the Medical morning. Branch meloxicam 2021-07 Yes 7.5mg Take 7.5 [facility] vers 7.5 mg 2-20 mg by [facility] of tablet 00:00: mouth in [place] the Medical morning. Branch meloxicam 2021-07 Yes 7.5mg Take 7.5 [facility] vers 7.5 mg 2-20 mg by [facility] of tablet 00:00: mouth in [place] the Medical morning. Branch meloxicam 2021-07 Yes 7.5mg Take 7.5 [facility] vers 7.5 mg 2-20 mg by [facility] of tablet 00:00: mouth in [place] the Medical morning. Branch meloxicam 2021-07 Yes 7.5mg Take 7.5 [facility] vers 7.5 mg 2-20 mg by [facility] of tablet 00:00: mouth in [place] the Medical morning. Branch meloxicam 2021-07 Yes 7.5mg Take 7.5 [facility] vers 7.5 mg 2-20 mg by [facility] of tablet 00:00: mouth in [place] the Medical morning. Branch meloxicam 2021-07 Yes 7.5mg Take 7.5 [facility] vers 7.5 mg 2-20 mg by [facility] of tablet 00:00: mouth in [place] the Medical morning. Branch meloxicam 2021-07 Yes 7.5mg Take 7.5 [facility] vers 7.5 mg 2-20 mg by [facility] of tablet 00:00: mouth in [place] the Medical morning. Branch meloxicam 2021-07 Yes 7.5mg Take 7.5 [facility] vers 7.5 mg 2-20 mg by [facility] of tablet 00:00: mouth in [place] the Medical morning. Branch meloxicam 2021-07 Yes 7.5mg Take 7.5 [facility] vers 7.5 mg 2-20 mg by [facility] of tablet 00:00: mouth in [place] the Medical morning. Branch meloxicam 2021- Yes 7.5mg Take 7.5 [facility] vers 7.5 mg 2-20 mg by [facility] of tablet 00:00: mouth in [place] the Medical morning. Branch meloxicam 2021-07 Yes 7.5mg Take 7.5 [facility] vers 7.5 mg 2-20 mg by [facility] of tablet 00:00: mouth in [place] the Medical morning. Branch meloxicam 2021-07 Yes 7.5mg Take 7.5 [facility] vers 7.5 mg 2-20 mg by [facility] of tablet 00:00: mouth in [place] the Medical morning. Branch meloxicam 2021-07 Yes 7.5mg Take 7.5 [facility] vers 7.5 mg 2-20 mg by [facility] of tablet 00:00: mouth in [place] the Medical morning. Branch meloxicam 2021-07 Yes 7.5mg Take 7.5 [facility] vers 7.5 mg 2-20 mg by [facility] of tablet 00:00: mouth in [place] the Medical morning. Branch meloxicam 2021-07 Yes 7.5mg Take 7.5 [facility] vers 7.5 mg 2-20 mg by [facility] of tablet 00:00: mouth in [place] the Medical morning. Branch meloxicam 2021-07 Yes 7.5mg Take 7.5 [facility] vers 7.5 mg 2-20 mg by [facility] of tablet 00:00: mouth in [place] the Medical morning. Branch meloxicam 2021-07 Yes 7.5mg Take 1 [facility] rs 7.5 mg 2-20 tablet by [facility] of tablet 00:00: mouth in [place] the Medical morning. Branch meloxicam 2021-07 Yes 7.5mg Take 1 [facility] rs 7.5 mg 2-20 tablet by [facility] of tablet 00:00: mouth in [place] the Medical morning. Branch meloxicam 2021-07 Yes 7.5mg Take 1 [facility] rs 7.5 mg 2-20 tablet by [facility] of tablet 00:00: mouth in [place] the Medical morning. Branch meloxicam 2021-07 Yes 7.5mg Take 1 [facility] rs 7.5 mg 2-20 tablet by [facility] of tablet 00:00: mouth in [place] the Medical morning. Branch meloxicam 2021-07 Yes 7.5mg Take 1 [facility] rs 7.5 mg 2-20 tablet by [facility] of tablet 00:00: mouth in [place] 00 the Medical morning. Branch meloxicam 2021-07 Yes 7.5mg Take 1 [facility] rs 7.5 mg 2-20 tablet by [facility] of tablet 00:00: mouth in [place] 00 the Medical morning. Branch meloxicam 2021-07 Yes 7.5mg Take 1 [facility] rs 7.5 mg 2-20 tablet by [facility] of tablet 00:00: mouth in [place] 00 the Medical morning. Branch meloxicam 2021-07 Yes 7.5mg Take 1 [facility] 7.5 mg 2-20 tablet by [facility] tablet 00:00: mouth in [place] 00 the Medical morning. Branch meloxicam 2021-07 Yes 7.5mg Take 1 [facility] 7.5 mg 2-20 tablet by [facility] tablet 00:00: mouth in [place] the Medical morning. Branch meloxicam 2021-07 Yes 7.5mg Take 1 [facility] 7.5 mg 2-20 tablet by [facility] tablet 00:00: mouth in [place] the Medical morning. Branch meloxicam 2021-07 Yes 7.5mg Take 1 [facility] 7.5 mg 2-20 tablet by [facility] tablet 00:00: mouth in [place] the Medical morning. Branch orphenadrin 2021-07 Yes TAKE 1 [facility] 100 mg SR 2-16 TABLET BY [facility] tablet 00:00: MOUTH [place] 00 TWICE Medical DAILY Branch NEEDED orphenadrin 2021- Yes TAKE 1 [facility] 100 mg SR 2-16 TABLET BY [facility] tablet 00:00: MOUTH [place] 00 TWICE Medical DAILY Branch NEEDED orphenadrin 2021- Yes TAKE 1 [facility] 100 mg SR 2-16 TABLET BY [facility] tablet 00:00: MOUTH [place] 00 TWICE Medical DAILY Branch NEEDED orphenadrin 2021- Yes TAKE 1 [facility] 100 mg SR 2-16 TABLET BY [facility] tablet 00:00: MOUTH [place] 00 TWICE Medical DAILY Branch NEEDED orphenadrin 2021- Yes TAKE 1 [facility] 100 mg SR 2-16 TABLET BY [facility] tablet 00:00: MOUTH [place] 00 TWICE Medical DAILY Branch NEEDED orphenadrin 2021- Yes TAKE 1 [facility] 100 mg SR 2-16 TABLET BY [facility] tablet 00:00: MOUTH [place] 00 TWICE Medical DAILY Branch NEEDED orphenadrin 2022-1 Yes TAKE 1 [facility] 100 mg SR 2-16 TABLET BY [facility] tablet 00:00: MOUTH [place] 00 TWICE Medical DAILY Branch NEEDED orphenadrin 2022-1 Yes TAKE 1 [facility] 100 mg SR 2-16 TABLET BY [facility] tablet 00:00: MOUTH [place] 00 TWICE Medical DAILY Branch NEEDED orphenadrin 2022-1 Yes TAKE 1 [facility] 100 mg SR 2-16 TABLET BY [facility] tablet 00:00: MOUTH [place] 00 TWICE Medical DAILY Branch NEEDED orphenadrin 2022-1 Yes TAKE 1 [facility] 100 mg SR 2-16 TABLET BY [facility] tablet 00:00: MOUTH [place] 00 TWICE Medical DAILY Branch NEEDED orphenadrin 2022-1 Yes TAKE 1 [facility] 100 mg SR 2-16 TABLET BY [facility] tablet 00:00: MOUTH [place] 00 TWICE Medical DAILY Branch NEEDED orphenadrin 2022-1 Yes TAKE 1 [facility] 100 mg SR 2-16 TABLET BY [facility] tablet 00:00: MOUTH [place] 00 TWICE Medical DAILY Branch NEEDED orphenadrin 2022-1 Yes TAKE 1 [facility] 100 mg SR 2-16 TABLET BY [facility] tablet 00:00: MOUTH [place] 00 TWICE Medical DAILY Branch NEEDED orphenadrin 2022-1 Yes TAKE 1 [facility] 100 mg SR 2-16 TABLET BY [facility] tablet 00:00: MOUTH [place] 00 TWICE Medical DAILY Branch NEEDED orphenadrin 2022-1 Yes TAKE 1 [facility] 100 mg SR 2-16 TABLET BY [facility] tablet 00:00: MOUTH [place] 00 TWICE Medical DAILY Branch NEEDED orphenadrin 2022-1 Yes TAKE 1 [facility] 100 mg SR 2-16 TABLET BY [facility] tablet 00:00: MOUTH [place] 00 TWICE Medical DAILY Branch NEEDED orphenadrin 2022-1 Yes TAKE 1 [facility] 100 mg SR 2-16 TABLET BY [facility] tablet 00:00: MOUTH [place] 00 TWICE Medical DAILY Branch NEEDED orphenadrin 2022-1 Yes TAKE 1 [facility] 100 mg SR 2-16 TABLET BY [facility] tablet 00:00: MOUTH [place] 00 TWICE Medical DAILY Branch NEEDED orphenadrin 2022-1 Yes TAKE 1 [facility] 100 mg SR 2-16 TABLET BY [facility] tablet 00:00: MOUTH [place] 00 TWICE Medical DAILY Branch NEEDED orphenadrin 2021- Yes TAKE 1 [facility] 100 mg SR 2-16 TABLET BY [facility] tablet 00:00: MOUTH [place] 00 TWICE Medical DAILY Branch NEEDED orphenadrin 2021- Yes TAKE 1 [facility] 100 mg SR 2-16 TABLET BY [facility] tablet 00:00: MOUTH [place] 00 TWICE Medical DAILY Branch NEEDED orphenadrin 2021- Yes TAKE 1 [facility] 100 mg SR 2-16 TABLET BY [facility] tablet 00:00: MOUTH [place] 00 TWICE Medical DAILY Branch NEEDED orphenadrin 2021- Yes TAKE 1 [facility] 100 mg SR 2-16 TABLET BY [facility] tablet 00:00: MOUTH 00 TWICE Medical DAILY Branch NEEDED orphenadrin 2021- Yes TAKE 1 [facility] 100 mg SR 2-16 TABLET BY [facility] tablet 00:00: MOUTH 00 TWICE Medical DAILY Branch NEEDED orphenadrin 2021- Yes TAKE 1 [facility] 100 mg SR 2-16 TABLET BY [facility] tablet 00:00: MOUTH [place] 00 TWICE Medical DAILY Branch NEEDED orphenadrin 2021- Yes TAKE 1 [facility] 100 mg SR 2-16 TABLET BY [facility] tablet 00:00: MOUTH 00 TWICE Medical DAILY Branch NEEDED orphenadrin 2021- Yes TAKE 1 [facility] 100 mg SR 2-16 TABLET BY [facility] tablet 00:00: MOUTH [place] 00 TWICE Medical DAILY Branch NEEDED orphenadrin 2021- Yes TAKE 1 [facility] 100 mg SR 2-16 TABLET BY [facility] tablet 00:00: MOUTH 00 TWICE Medical DAILY Branch NEEDED orphenadrin 2021- Yes TAKE 1 [facility] 100 mg SR 2-16 TABLET BY [facility] tablet 00:00: MOUTH [place] 00 TWICE Medical DAILY Branch NEEDED orphenadrin 2021- Yes TAKE 1 [facility] 100 mg SR 2-16 TABLET BY [facility] tablet 00:00: MOUTH [place] 00 TWICE Medical DAILY Branch NEEDED orphenadrin 2021- Yes TAKE 1 [facility] 100 mg SR 2-16 TABLET BY [facility] tablet 00:00: MOUTH 00 TWICE Medical DAILY Branch NEEDED zolpidem 10 2021- Yes [id number] 10mg Take 1 [facility] mg tablet 1-22 [...] (scale 4-6). Indication s: chronic pain zolpidem 2021-07 Yes [id number] 10mg Take 1 [facility] mg tablet 1-22 [...] (scale 4-6). Indication s: chronic pain zolpidem 2021-07 Yes [id number] 10mg Take 1 [facility] mg tablet 1-22 [...] (scale 4-6). Indication s: chronic pain zolpidem 2021-07 Yes [id number] 10mg Take 1 [facility] mg tablet 1-22 [...] (scale 4-6). Indication s: chronic pain zolpidem 2021-07 Yes [id number] 10mg Take 1 [facility] mg tablet 1-22 [...] (scale 4-6). Indication s: chronic pain zolpidem 2021-07 Yes [id number] 10mg Take 1 [facility] mg tablet 1-22 [...] (scale 4-6). Indication s: chronic pain zolpidem 2021-07 Yes [id number] 10mg Take 1 [facility] mg tablet 1-22 tablet by [facility] o f 00:00: mouth at [place] 00 bedtime as Medical needed for Branch Insomnia. zolpidem 2021-07 Yes [id number] 10mg Take 1 [facility] mg tablet 1-22 tablet by [facility] o f 00:00: mouth at [place] 00 bedtime as Medical needed for Branch Insomnia. zolpidem 2021-07 Yes [id number] 10mg Take 1 [facility] mg tablet 1-22 tablet by [facility] o f 00:00: mouth at [place] 00 bedtime as Medical needed for Branch Insomnia. zolpidem 2021-07 Yes [id number] 10mg Take 1 [facility] mg tablet 1-22 tablet by [facility] o f 00:00: mouth at [place] 00 bedtime as Medical needed for Branch Insomnia. zolpidem 2021-07 Yes [id number] 10mg Take 1 [facility] mg tablet 1-22 tablet by [facility] o f 00:00: mouth at [place] 00 bedtime as Medical needed for Branch Insomnia. zolpidem 2021-07 Yes [id number] 10mg Take 1 [facility] mg tablet 1-22 tablet by [facility] o f 00:00: mouth at [place] 00 bedtime as Medical needed for Branch Insomnia. zolpidem 2021-07 Yes [id number] 10mg Take 1 [facility] mg tablet 1-22 tablet by [facility] o f 00:00: mouth at [place] 00 bedtime as Medical needed for Branch Insomnia. zolpidem 10 2022-1 Yes [id number] 10mg Take 1 [facility] mg tablet 1-22 tablet by [facility] o f 00:00: mouth at [place] 00 bedtime as Medical needed for Branch Insomnia. zolpidem 2021-07 Yes [id number] 10mg Take 1 [facility] mg tablet 1-22 tablet by [facility] o f 00:00: mouth at [place] 00 bedtime as Medical needed for Branch Insomnia. zolpidem 2021-07 Yes [id number] 10mg Take 1 [facility] mg tablet 1-22 tablet by [facility] o f 00:00: mouth at [place] 00 bedtime as Medical needed for Branch Insomnia. zolpidem 2021-07 Yes [id number] 10mg Take 1 [facility] mg tablet 1-22 tablet by [facility] o f 00:00: mouth at [place] 00 bedtime as Medical needed for Branch Insomnia. zolpidem 2021-07 Yes [id number] 10mg Take 1 [facility] mg tablet 1-22 tablet by [facility] o f 00:00: mouth at [place] 00 bedtime as Medical needed for Branch Insomnia. zolpidem 2021-07 Yes [id number] 10mg Take 1 [facility] mg tablet 1-22 tablet by [facility] o f 00:00: mouth at [place] 00 bedtime as Medical needed for Branch Insomnia. zolpidem 2021-07 Yes [id number] 10mg Take 1 [facility] mg tablet 1-22 tablet by [facility] o f 00:00: mouth at [place] 00 bedtime as Medical needed for Branch Insomnia. zolpidem 2021-07 Yes [id number] 10mg Take 1 [facility] mg tablet 1-22 tablet by [facility] o f 00:00: mouth at [place] 00 bedtime as Medical needed for Branch Insomnia. zolpidem 2021-07 Yes [id number] 10mg Take 1 [facility] mg tablet 1-22 tablet by [facility] o f 00:00: mouth at [place] 00 bedtime as Medical needed for Branch Insomnia. zolpidem 2021-07 Yes [id number] 10mg Take 1 [facility] mg tablet 1-22 tablet by [facility] o f 00:00: mouth at [place] 00 bedtime as Medical needed for Branch Insomnia. zolpidem 2021-07 Yes [id number] 10mg Take 1 [facility] mg tablet 1-22 tablet by [facility] o f 00:00: mouth at [place] 00 bedtime as Medical needed for Branch Insomnia. zolpidem 2021-07 Yes [id number] 10mg Take 1 [facility] mg tablet 1-22 tablet by [facility] o f 00:00: mouth at [place] 00 bedtime as Medical needed for Branch Insomnia. zolpidem 2021-07 Yes [id number] 10mg Take 1 [facility] mg tablet 1-22 tablet by [facility] o f 00:00: mouth at [place] 00 bedtime as Medical needed for Branch Insomnia. zolpidem 2021-07 Yes [id number] 10mg Take 1 [facility] mg tablet 1-22 tablet by [facility] o f 00:00: mouth at [place] 00 bedtime as Medical needed for Branch Insomnia. zolpidem 2021-07 Yes [id number] 10mg Take 1 [facility] mg tablet 1-22 tablet by [facility] o f 00:00: mouth at [place] 00 bedtime as Medical needed for Branch Insomnia. zolpidem 2021-07 Yes [id number] 10mg Take 1 [facility] mg tablet 1-22 tablet by [facility] o f 00:00: mouth at [place] 00 bedtime as Medical needed for Branch Insomnia. zolpidem 2021-07 Yes [id number] 10mg Take 1 [facility] mg tablet 1-22 tablet by [facility] o f 00:00: mouth at [place] 00 bedtime as Medical needed for Branch Insomnia. zolpidem 2021-07 Yes [id number] 10mg Take 1 [facility] mg tablet 1-22 tablet by [facility] o f 00:00: mouth at [place] 00 bedtime as Medical needed for Branch Insomnia. zolpidem 2021-07 Yes [id number] 10mg Take 1 [facility] mg tablet 1-22 tablet by [facility] o f 00:00: mouth at [place] 00 bedtime as Medical needed for Branch Insomnia. zolpidem 2021-07- No [id number] 10mg Take 1 [facility] mg tablet 1-22 04-17 tablet by [facility] of 00:00: 00:00 mouth at [place] 00 :00 bedtime as Medical needed for Branch Insomnia. HYDROcodone 2021-07- No 2745 1{tbl} Take 1 [facility] -acetaminop 1-22 12-28 tablet by it y of hen 5-325 00:00: 00:00 mouth [place] mg tablet 00 :00 every 6 Medical (six) Branch hours as needed for Pain (scale 4-6). Indication s: chronic pain propranoloL 2021-07 Yes [id number] 10mg Take 1 [facility] 10 mg 0-27 9105 tablet by [facility] tablet 00:00: mouth in [place] 00 the Medical morning Branch and 1 tablet in the evening. zolpidem 10 2021-07 Yes [id number] 10mg Take 1 [facility] mg tablet 0-27 tablet by [facility] o f 00:00: mouth at [place] 00 bedtime as Medical needed for Branch Insomnia. nebivoloL 2021-07 Yes [id number] 10mg Take 1 [facility] 10 mg 0-27 tablet by [facility] tablet 00:00: mouth in [place] 00 the Medical morning. Branch hydroCHLORO 2021-07 Yes [id number] 12.5mg Take 1 [facility] thiazide 0-27 tablet by [facility] of 12.5 mg 00:00: mouth [place] tablet 00 every Medical morning. Branch azithromyci 2021-07 Yes [id number] 250mg Z-Romel = [facility] n 250 mg 0-27 500 mg day [facility] o f tablet 00:00: 1, then [place] 00 250 mg Medical days 2 to Branch 5. Take 500 mg day 1, then 250 mg days 2 to 5. propranoloL 2021-07 Yes [id number] 10mg Take 1 [facility] 10 mg 0-27 9105 tablet by [facility] of tablet 00:00: mouth in [place] 00 the Medical morning Branch and 1 tablet in the evening. zolpidem 10 2021-07 Yes [id number] 10mg Take 1 [facility] mg tablet 0-27 tablet by [facility] o f 00:00: mouth at [place] 00 bedtime as Medical needed for Branch Insomnia. nebivoloL 2021-07 Yes [id number] 10mg Take 1 [facility] 10 mg 0-27 tablet by [facility] tablet 00:00: mouth in [place] 00 the Medical morning. Branch hydroCHLORO 2021-07 Yes [id number] 12.5mg Take 1 [facility] thiazide 0-27 tablet by [facility] of 12.5 mg 00:00: mouth [place] tablet 00 every Medical morning. Branch azithromyci 2021-07 Yes [id number] 250mg Z-Rom[facility] = [facility] n 250 mg [...] Indication s: chronic pain propranoloL 2021-07 Yes [id number] 10mg Take 1 [facility] 10 mg 0-27 9105 tablet by [facility] tablet 00:00: mouth in [place] 00 the Medical morning Branch and 1 tablet in the evening. zolpidem 10 2021-07 Yes [id number] 10mg Take 1 [facility] mg tablet 0-27 tablet by [facility] o f 00:00: mouth at [place] 00 bedtime as Medical needed for Branch Insomnia. nebivoloL 2021-07 Yes [id number] 10mg Take 1 [facility] 10 mg 0-27 tablet by [facility] tablet 00:00: mouth in [place] 00 the Medical morning. Branch hydroCHLORO 2021-07 Yes [id number] 12.5mg Take 1 [facility] thiazide 0-27 tablet by [facility] of 12.5 mg 00:00: mouth [place] tablet 00 every Medical morning. Branch azithromyci 2021-07 Yes [id number] 250mg Z-Romel = [facility] 250 mg 0-27 500 mg day [facility] o f tablet 00:00: 1, then [place] 00 250 mg Medical days 2 to Branch 5. Take 500 mg day 1, then 250 mg days 2 to 5. propranoloL 2021-07 Yes [id number] 10mg Take 1 [facility] 10 mg 0-27 9105 tablet by [facility] tablet 00:00: mouth in [place] 00 the Medical morning Branch and 1 tablet in the evening. zolpidem 10 2021-07 Yes [id number] 10mg Take 1 [facility] mg tablet 0-27 tablet by [facility] o f 00:00: mouth at [place] 00 bedtime as Medical needed for Branch Insomnia. nebivoloL 2021-07 Yes [id number] 10mg Take 1 [facility] 10 mg 0-27 tablet by [facility] tablet 00:00: mouth in [place] 00 the Medical morning. Branch hydroCHLORO 2021-07 Yes [id number] 12.5mg Take 1 [facility] thiazide 0-27 tablet by [facility] of 12.5 mg 00:00: mouth [place] tablet 00 every Medical morning. Branch azithromyci 2021-07 Yes [id number] 250mg Z-Romel = [facility] 250 mg 0-27 500 mg day [facility] o f tablet 00:00: 1, then [place] 00 250 mg Medical days 2 to Branch 5. Take 500 mg day 1, then 250 mg days 2 to 5. propranoloL 2021-07 Yes [id number] 10mg Take 1 [facility] 10 mg 0-27 9105 tablet by [facility] tablet 00:00: mouth in [place] 00 the Medical morning Branch and 1 tablet in the evening. nebivoloL 2021-07 Yes [id number] 10mg Take 1 [facility] 10 mg 0-27 tablet by [facility] tablet 00:00: mouth in [place] 00 the Medical morning. Branch hydroCHLORO 2021-07 Yes [id number] 12.5mg Take 1 [facility] thiazide 0-27 tablet by [facility] of 12.5 mg 00:00: mouth [place] tablet 00 every Medical morning. Branch azithromyci 2021-07 Yes [id number] 250mg Z-Rom[facility] = [facility] 250 mg 0-27 500 mg day [facility] o f tablet 00:00: 1, then [place] 00 250 mg Medical days 2 to Branch 5. Take 500 mg day 1, then 250 mg days 2 to 5. propranoloL 2021-07 Yes [id number] 10mg Take 1 [facility] 10 mg 0-27 9105 tablet by [facility] of tablet 00:00: mouth in [place] 00 the Medical morning Branch and 1 tablet in the evening. nebivoloL 2021-07 Yes [id number] 10mg Take 1 [facility] 10 mg 0-27 tablet by [facility] tablet 00:00: mouth in [place] 00 the Medical morning. Branch hydroCHLORO 2021-07 Yes [id number] 12.5mg Take 1 [facility] thiazide 0-27 tablet by [facility] of 12.5 mg 00:00: mouth [place] tablet 00 every Medical morning. Branch azithromyci 2021-07 Yes [id number] 250mg Z-Romel = [facility] 250 mg 0-27 500 mg day [facility] o f tablet 00:00: 1, then [place] 00 250 mg Medical days 2 to Branch 5. Take 500 mg day 1, then 250 mg days 2 to 5. propranoloL 2021-07 Yes [id number] 10mg Take 1 [facility] 10 mg 0-27 9105 tablet by [facility] of tablet 00:00: mouth in [place] 00 the Medical morning Branch and 1 tablet in the evening. nebivoloL 2021-07 Yes [id number] 10mg Take 1 [facility] 10 mg 0-27 tablet by [facility] tablet 00:00: mouth in [place] 00 the Medical morning. Branch hydroCHLORO 2021-07 Yes [id number] 12.5mg Take 1 [facility] thiazide 0-27 tablet by [facility] of 12.5 mg 00:00: mouth [place] tablet 00 every Medical morning. Branch azithromyci 2021-07 Yes [id number] 250mg Z-Romel = [facility] 250 mg 0-27 500 mg day [facility] o f tablet 00:00: 1, then [place] 00 250 mg Medical days 2 to Branch 5. Take 500 mg day 1, then 250 mg days 2 to 5. propranoloL 2021-07 Yes [id number] 10mg Take 1 [facility] 10 mg 0-27 9105 tablet by [facility] of tablet 00:00: mouth in [place] 00 the Medical morning Branch and 1 tablet in the evening. nebivoloL 2021-07 Yes [id number] 10mg Take 1 [facility] 10 mg 0-27 tablet by [facility] tablet 00:00: mouth in [place] 00 the Medical morning. Branch hydroCHLORO 2021-07 Yes [id number] 12.5mg Take 1 [facility] thiazide 0-27 tablet by [facility] of 12.5 mg 00:00: mouth [place] tablet 00 every Medical morning. Branch azithromyci 2021-07 Yes [id number] 250mg Z-Rom[facility] = [facility] 250 mg 0-27 500 mg day [facility] o f tablet 00:00: 1, then [place] 00 250 mg Medical days 2 to Branch 5. Take 500 mg day 1, then 250 mg days 2 to 5. propranoloL 2021-07 Yes [id number] 10mg Take 1 [facility] 10 mg 0-27 9105 tablet by [facility] of tablet 00:00: mouth in [place] 00 the Medical morning Branch and 1 tablet in the evening. nebivoloL 2021-07 Yes [id number] 10mg Take 1 [facility] 10 mg 0-27 tablet by [facility] tablet 00:00: mouth in [place] 00 the Medical morning. Branch hydroCHLORO 2021-07 Yes [id number] 12.5mg Take 1 [facility] thiazide 0-27 tablet by [facility] of 12.5 mg 00:00: mouth [place] tablet 00 every Medical morning. Branch azithromyci 2021-07 Yes [id number] 250mg Z-Rom[facility] = [facility] 250 mg 0-27 500 mg day [facility] o f tablet 00:00: 1, then [place] 00 250 mg Medical days 2 to Branch 5. Take 500 mg day 1, then 250 mg days 2 to 5. propranoloL 2021-07 Yes [id number] 10mg Take 1 [facility] 10 mg 0-27 9105 tablet by [facility] of tablet 00:00: mouth in [place] 00 the Medical morning Branch and 1 tablet in the evening. nebivoloL 2021-07 Yes [id number] 10mg Take 1 [facility] 10 mg 0-27 tablet by [facility] tablet 00:00: mouth in [place] 00 the Medical morning. Branch hydroCHLORO 2021-07 Yes [id number] 12.5mg Take 1 [facility] thiazide 0-27 tablet by [facility] of 12.5 mg 00:00: mouth [place] tablet 00 every Medical morning. Branch azithromyci 2021-07 Yes [id number] 250mg Z-Rom[facility] = [facility] 250 mg 0-27 500 mg day [facility] o f tablet 00:00: 1, then [place] 00 250 mg Medical days 2 to Branch 5. Take 500 mg day 1, then 250 mg days 2 to 5. propranoloL 2021-07 Yes [id number] 10mg Take 1 [facility] 10 mg 0-27 9105 tablet by [facility] of tablet 00:00: mouth in [place] the Medical morning Branch and 1 tablet in the evening. nebivoloL 2021-07 Yes [id number] 10mg Take 1 [facility] 10 mg 0-27 tablet by [facility] tablet 00:00: mouth in [place] 00 the Medical morning. Branch hydroCHLORO 2021-07 Yes [id number] 12.5mg Take 1 [facility] thiazide 0-27 tablet by [facility] of 12.5 mg 00:00: mouth [place] tablet 00 every Medical morning. Branch azithromyci 2021-07 Yes [id number] 250mg Z-Rom[facility] = [facility] 250 mg 0-27 500 mg day [facility] o f tablet 00:00: 1, then [place] 00 250 mg Medical days 2 to Branch 5. Take 500 mg day 1, then 250 mg days 2 to 5. nebivoloL 2021-07 Yes [id number] 10mg Take 1 [facility] 10 mg 0-27 tablet by [facility] tablet 00:00: mouth in [place] 00 the Medical morning. Branch hydroCHLORO 2021-07 Yes [id number] 12.5mg Take 1 [facility] thiazide 0-27 tablet by [facility] of 12.5 mg 00:00: mouth [place] tablet 00 every Medical morning. Branch azithromyci 2021-07 Yes [id number] 250mg Z-Rom[facility] = [facility] 250 mg 0-27 500 mg day [facility] o f tablet 00:00: 1, then [place] 00 250 mg Medical days 2 to Branch 5. Take 500 mg day 1, then 250 mg days 2 to 5. nebivoloL 2021-07 Yes [id number] 10mg Take 1 [facility] 10 mg 0-27 tablet by [facility] of tablet 00:00: mouth in [place] 00 the Medical morning. Branch hydroCHLORO 2021-07 Yes [id number] 12.5mg Take 1 [facility] thiazide 0-27 tablet by [facility] of 12.5 mg 00:00: mouth [place] tablet 00 every Medical morning. Branch azithromyci 2021-07 Yes [id number] 250mg Z-[facility] = [facility] 250 mg 0-27 500 mg day [facility] o f tablet 00:00: 1, then [place] 00 250 mg Medical days 2 to Branch 5. Take 500 mg day 1, then 250 mg days 2 to 5. nebivoloL 2021-07 Yes [id number] 10mg Take 1 [facility] 10 mg 0-27 tablet by [facility] of tablet 00:00: mouth in [place] 00 the Medical morning. Branch hydroCHLORO 2021-07 Yes [id number] 12.5mg Take 1 [facility] thiazide 0-27 tablet by [facility] of 12.5 mg 00:00: mouth [place] tablet 00 every Medical morning. Branch azithromyci 2021-07 Yes [id number] 250mg Z-Rom[facility] = [facility] 250 mg 0-27 500 mg day [facility] o f tablet 00:00: 1, then [place] 00 250 mg Medical days 2 to Branch 5. Take 500 mg day 1, then 250 mg days 2 to 5. nebivoloL 2021-07 Yes [id number] 10mg Take 1 [facility] 10 mg 0-27 tablet by [facility] of tablet 00:00: mouth in [place] 00 the Medical morning. Branch hydroCHLORO 2021-07 Yes [id number] 12.5mg Take 1 [facility] thiazide 0-27 tablet by [facility] of 12.5 mg 00:00: mouth [place] tablet 00 every Medical morning. Branch azithromyci 2021-07 Yes [id number] 250mg [facility] = [facility] 250 mg 0-27 500 mg day [facility] o f tablet 00:00: 1, then [place] 00 250 mg Medical days 2 to Branch 5. Take 500 mg day 1, then 250 mg days 2 to 5. nebivoloL 2021-07 Yes [id number] 10mg Take 1 [facility] 10 mg 0-27 tablet by [facility] of tablet 00:00: mouth in [place] 00 the Medical morning. Branch hydroCHLORO 2021-07 Yes [id number] 12.5mg Take 1 [facility] thiazide 0-27 tablet by [facility] of 12.5 mg 00:00: mouth [place] tablet 00 every Medical morning. Branch azithromyci 2021-07 Yes [id number] 250mg [facility] = [facility] 250 mg 0-27 500 mg day [facility] o f tablet 00:00: 1, then [place] 00 250 mg Medical days 2 to Branch 5. Take 500 mg day 1, then 250 mg days 2 to 5. nebivoloL 2021-07 Yes [id number] 10mg Take 1 [facility] 10 mg 0-27 tablet by [facility] of tablet 00:00: mouth in [place] 00 the Medical morning. Branch hydroCHLORO 2021-07 Yes [id number] 12.5mg Take 1 [facility] thiazide 0-27 tablet by [facility] of 12.5 mg 00:00: mouth [place] tablet 00 every Medical morning. Branch azithromyci 2021-07 Yes [id number] 250mg [facility] = [facility] 250 mg 0-27 500 mg day [facility] o f tablet 00:00: 1, then [place] 00 250 mg Medical days 2 to Branch 5. Take 500 mg day 1, then 250 mg days 2 to 5. nebivoloL 2021-07 Yes [id number] 10mg Take 1 [facility] 10 mg 0-27 tablet by [facility] of tablet 00:00: mouth in [place] 00 the Medical morning. Branch hydroCHLORO 2021-07 Yes [id number] 12.5mg Take 1 [facility] thiazide 0-27 tablet by [facility] of 12.5 mg 00:00: mouth [place] tablet 00 every Medical morning. Branch azithromyci 2021-07 Yes [id number] 250mg Z-Rom[facility] = [facility] 250 mg 0-27 500 mg day [facility] o f tablet 00:00: 1, then [place] 00 250 mg Medical days 2 to Branch 5. Take 500 mg day 1, then 250 mg days 2 to 5. nebivoloL 2021-07 Yes [id number] 10mg Take 1 [facility] 10 mg 0-27 tablet by [facility] of tablet 00:00: mouth in [place] 00 the Medical morning. Branch hydroCHLORO 2021-07 Yes [id number] 12.5mg Take 1 [facility] thiazide 0-27 tablet by [facility] of 12.5 mg 00:00: mouth [place] tablet 00 every Medical morning. Branch azithromyci 2021-07 Yes [id number] 250mg Z-Rom[facility] = [facility] 250 mg 0-27 500 mg day [facility] o f tablet 00:00: 1, then [place] 00 250 mg Medical days 2 to Branch 5. Take 500 mg day 1, then 250 mg days 2 to 5. nebivoloL 2021-07 Yes [id number] 10mg Take 1 [facility] 10 mg 0-27 tablet by [facility] of tablet 00:00: mouth in [place] 00 the Medical morning. Branch hydroCHLORO 2021-07 Yes [id number] 12.5mg Take 1 [facility] thiazide 0-27 tablet by [facility] of 12.5 mg 00:00: mouth [place] tablet 00 every Medical morning. Branch azithromyci 2021-07 Yes [id number] 250mg Z-[facility] = [facility] 250 mg 0-27 500 mg day [facility] o f tablet 00:00: 1, then [place] 00 250 mg Medical days 2 to Branch 5. Take 500 mg day 1, then 250 mg days 2 to 5. nebivoloL 2021-07 Yes [id number] 10mg Take 1 [facility] 10 mg 0-27 tablet by [facility] of tablet 00:00: mouth in [place] 00 the Medical morning. Branch hydroCHLORO 2021-07 Yes [id number] 12.5mg Take 1 [facility] thiazide 0-27 tablet by [facility] of 12.5 mg 00:00: mouth [place] tablet 00 every Medical morning. Branch azithromyci 2021-07 Yes [id number] 250mg Z-[facility] = [facility] 250 mg 0-27 500 mg day [facility] o f tablet 00:00: 1, then [place] 00 250 mg Medical days 2 to Branch 5. Take 500 mg day 1, then 250 mg days 2 to 5. nebivoloL 2021-07 Yes [id number] 10mg Take 1 [facility] 10 mg 0-27 tablet by [facility] of tablet 00:00: mouth in [place] 00 the Medical morning. Branch hydroCHLORO 2021-07 Yes [id number] 12.5mg Take 1 [facility] thiazide 0-27 tablet by [facility] of 12.5 mg 00:00: mouth [place] tablet 00 every Medical morning. Branch azithromyci 2021-07 Yes [id number] 250mg [facility] = [facility] 250 mg 0-27 500 mg day [facility] o f tablet 00:00: 1, then [place] 00 250 mg Medical days 2 to Branch 5. Take 500 mg day 1, then 250 mg days 2 to 5. nebivoloL 2021-07 Yes [id number] 10mg Take 1 [facility] 10 mg 0-27 tablet by [facility] tablet 00:00: mouth in [place] 00 the Medical morning. Branch hydroCHLORO 2021-07 Yes [id number] 12.5mg Take 1 [facility] thiazide 0-27 tablet by [facility] of 12.5 mg 00:00: mouth [place] tablet 00 every Medical morning. Branch azithromyci 2021-07 Yes [id number] 250mg Z-Rom[facility] = [facility] 250 mg 0-27 500 mg day [facility] o f tablet 00:00: 1, then [place] 00 250 mg Medical days 2 to Branch 5. Take 500 mg day 1, then 250 mg days 2 to 5. nebivoloL 2021-07 Yes [id number] 10mg Take 1 [facility] 10 mg 0-27 tablet by [facility] tablet 00:00: mouth in [place] 00 the Medical morning. Branch hydroCHLORO 2021-07 Yes [id number] 12.5mg Take 1 [facility] thiazide 0-27 tablet by [facility] of 12.5 mg 00:00: mouth [place] tablet 00 every Medical morning. Branch azithromyci 2021-07 Yes [id number] 250mg Z-[facility] = [facility] n 250 mg 0-27 500 mg day it[facility] o f tablet 00:00: 1, then [place] 00 250 mg Medical days 2 to Branch 5. Take 500 mg day 1, then 250 mg days 2 to 5. nebivoloL 2021-07 Yes [id number] 10mg Take 1 [facility] 10 mg 0-27 tablet by [facility] tablet 00:00: mouth in [place] 00 the Medical morning. Branch hydroCHLORO 2021-07 Yes [id number] 12.5mg Take 1 [facility] thiazide 0-27 tablet by [facility] of 12.5 mg 00:00: mouth [place] tablet 00 every Medical morning. Branch azithromyci 2021-07 Yes [id number] 250mg [facility] = [facility] 250 mg 0-27 500 mg day [facility] o f tablet 00:00: 1, then [place] 00 250 mg Medical days 2 to Branch 5. Take 500 mg day 1, then 250 mg days 2 to 5. nebivoloL 2021-07 Yes [id number] 10mg Take 1 [facility] 10 mg 0-27 tablet by [facility] tablet 00:00: mouth in [place] 00 the Medical morning. Branch hydroCHLORO 2021-07 Yes [id number] 12.5mg Take 1 [facility] thiazide 0-27 tablet by [facility] of 12.5 mg 00:00: mouth [place] tablet 00 every Medical morning. Branch azithromyci 2021-07 Yes [id number] 250mg Z-Romel = [facility] 250 mg 0-27 500 mg day [facility] o f tablet 00:00: 1, then [place] 00 250 mg Medical days 2 to Branch 5. Take 500 mg day 1, then 250 mg days 2 to 5. nebivoloL 2021-07 Yes [id number] 10mg Take 1 [facility] 10 mg 0-27 tablet by [facility] tablet 00:00: mouth in [place] 00 the Medical morning. Branch hydroCHLORO 2021-07 Yes [id number] 12.5mg Take 1 [facility] thiazide 0-27 tablet by [facility] of 12.5 mg 00:00: mouth [place] tablet 00 every Medical morning. Branch azithromyci 2021-07 Yes [id number] 250mg [facility]-Rom[facility] = [facility] 250 mg 0-27 500 mg day [facility] o f tablet 00:00: 1, then [place] 00 250 mg Medical days 2 to Branch 5. Take 500 mg day 1, then 250 mg days 2 to 5. nebivoloL 2021-07 Yes [id number] 10mg Take 1 [facility] 10 mg 0-27 tablet by [facility] of tablet 00:00: mouth in [place] 00 the Medical morning. Branch hydroCHLORO 2021-07 Yes [id number] 12.5mg Take 1 [facility] thiazide 0-27 tablet by [facility] of 12.5 mg 00:00: mouth [place] tablet 00 every Medical morning. Branch azithromyci 2021-07 Yes [id number] 250mg Z-Rom[facility] = [facility] 250 mg 0-27 500 mg day [facility] o f tablet 00:00: 1, then [place] 00 250 mg Medical days 2 to Branch 5. Take 500 mg day 1, then 250 mg days 2 to 5. nebivoloL 2021-07 Yes [id number] 10mg Take 1 [facility] 10 mg 0-27 tablet by [facility] of tablet 00:00: mouth in [place] 00 the Medical morning. Branch hydroCHLORO 2021-07 Yes [id number] 12.5mg Take 1 [facility] thiazide 0-27 tablet by [facility] of 12.5 mg 00:00: mouth [place] tablet 00 every Medical morning. Branch azithromyci 2021-07 Yes [id number] 250mg Z-Rom[facility] = [facility] 250 mg 0-27 500 mg day [facility] o f tablet 00:00: 1, then [place] 00 250 mg Medical days 2 to Branch 5. Take 500 mg day 1, then 250 mg days 2 to 5. nebivoloL 2021-07 Yes [id number] 10mg Take 1 [facility] 10 mg 0-27 tablet by [facility] of tablet 00:00: mouth in [place] 00 the Medical morning. Branch hydroCHLORO 2021-07 Yes [id number] 12.5mg Take 1 [facility] thiazide 0-27 tablet by [facility] of 12.5 mg 00:00: mouth [place] tablet 00 every Medical morning. Branch azithromyci 2021-07 Yes [id number] 250mg Z-Rom[facility] = [facility] 250 mg 0-27 500 mg day it[facility] o f tablet 00:00: 1, then [place] 00 250 mg Medical days 2 to Branch 5. Take 500 mg day 1, then 250 mg days 2 to 5. nebivoloL 2021-07 Yes [id number] 10mg Take 1 [facility] 10 mg 0-27 tablet by [facility] of tablet 00:00: mouth in [place] 00 the Medical morning. Branch hydroCHLORO 2021-07 Yes [id number] 12.5mg Take 1 [facility] thiazide 0-27 tablet by [facility] of 12.5 mg 00:00: mouth [place] tablet 00 every Medical morning. Branch azithromyci 2021-07 Yes [id number] 250mg [facility] = [facility] 250 mg 0-27 500 mg day it[facility] o f tablet 00:00: 1, then [place] 00 250 mg Medical days 2 to Branch 5. Take 500 mg day 1, then 250 mg days 2 to 5. nebivoloL 2021-07 Yes [id number] 10mg Take 1 [facility] 10 mg 0-27 tablet by [facility] of tablet 00:00: mouth in [place] 00 the Medical morning. Branch hydroCHLORO 2021-07 Yes [id number] 12.5mg Take 1 [facility] thiazide 0-27 tablet by [facility] of 12.5 mg 00:00: mouth [place] tablet 00 every Medical morning. Branch azithromyci 2021-07 Yes [id number] 250mg [facility]-Rom[facility] = [facility] 250 mg 0-27 500 mg day it[facility] o f tablet 00:00: 1, then [place] 00 250 mg Medical days 2 to Branch 5. Take 500 mg day 1, then 250 mg days 2 to 5. nebivoloL 2021-07 Yes [id number] 10mg Take 1 [facility] 10 mg 0-27 tablet by [facility] of tablet 00:00: mouth in [place] 00 the Medical morning. Branch hydroCHLORO 2021-07 Yes [id number] 12.5mg Take 1 [facility] thiazide 0-27 tablet by [facility] of 12.5 mg 00:00: mouth [place] tablet 00 every Medical morning. Branch azithromyci 2021-07 Yes [id number] 250mg [facility] = [facility] 250 mg 0-27 500 mg day [facility] o f tablet 00:00: 1, then [place] 00 250 mg Medical days 2 to Branch 5. Take 500 mg day 1, then 250 mg days 2 to 5. nebivoloL 2021-07 Yes [id number] 10mg Take 1 [facility] 10 mg 0-27 tablet by [facility] of tablet 00:00: mouth in [place] 00 the Medical morning. Branch hydroCHLORO 2021-07 Yes [id number] 12.5mg Take 1 [facility] thiazide 0-27 tablet by [facility] of 12.5 mg 00:00: mouth [place] tablet 00 every Medical morning. Branch azithromyci 2021-07 Yes [id number] 250mg [facility] = [facility] 250 mg 0-27 500 mg day it[facility] o f tablet 00:00: 1, then [place] 00 250 mg Medical days 2 to Branch 5. Take 500 mg day 1, then 250 mg days 2 to 5. nebivoloL 2021-07 Yes [id number] 10mg Take 1 [facility] 10 mg 0-27 tablet by [facility] of tablet 00:00: mouth in [place] 00 the Medical morning. Branch hydroCHLORO 2021-07 Yes [id number] 12.5mg Take 1 [facility] thiazide 0-27 tablet by [facility] of 12.5 mg 00:00: mouth [place] tablet 00 every Medical morning. Branch azithromyci 2021-07 Yes [id number] 250mg [facility] = [facility] 250 mg 0-27 500 mg day [facility] o f tablet 00:00: 1, then [place] 00 250 mg Medical days 2 to Branch 5. Take 500 mg day 1, then 250 mg days 2 to 5. nebivoloL 2021-07 Yes [id number] 10mg Take 1 [facility] 10 mg 0-27 tablet by [facility] of tablet 00:00: mouth in [place] 00 the Medical morning. Branch hydroCHLORO 2021-07 Yes [id number] 12.5mg Take 1 [facility] thiazide 0-27 tablet by [facility] of 12.5 mg 00:00: mouth [place] tablet 00 every Medical morning. Branch azithromyci 2021-07 Yes [id number] 250mg [facility] = [facility] 250 mg 0-27 500 mg day [facility] o f tablet 00:00: 1, then [place] 00 250 mg Medical days 2 to Branch 5. Take 500 mg day 1, then 250 mg days 2 to 5. nebivoloL 2021-07 Yes [id number] 10mg Take 1 [facility] 10 mg 0-27 tablet by [facility] of tablet 00:00: mouth in [place] 00 the Medical morning. Branch hydroCHLORO 2021-07 Yes [id number] 12.5mg Take 1 [facility] thiazide 0-27 tablet by [facility] of 12.5 mg 00:00: mouth [place] tablet 00 every Medical morning. Branch azithromyci 2021-07 Yes [id number] 250mg [facility] = [facility] 250 mg 0-27 500 mg day [facility] o f tablet 00:00: 1, then [place] 00 250 mg Medical days 2 to Branch 5. Take 500 mg day 1, then 250 mg days 2 to 5. nebivoloL 2021-07 Yes [id number] 10mg Take 1 [facility] 10 mg 0-27 tablet by [facility] of tablet 00:00: mouth in [place] 00 the Medical morning. Branch azithromyci 2021-07 Yes [id number] 250mg [facility] = [facility] 250 mg 0-27 500 mg day [facility] o f tablet 00:00: 1, then [place] 00 250 mg Medical days 2 to Branch 5. Take 500 mg day 1, then 250 mg days 2 to 5. nebivoloL 2021-07 Yes [id number] 10mg Take 1 [facility] 10 mg 0-27 tablet by [facility] tablet 00:00: mouth in [place] 00 the Medical morning. [facility] 2021-07 Yes [id number] 250mg [facility] = [facility] 250 mg 0-27 500 mg day [facility] o f tablet 00:00: 1, then [place] 00 250 mg Medical days 2 to Branch 5. Take 500 mg day 1, then 250 mg days 2 to 5. nebivoloL 2021-07 Yes [id number] 10mg Take 1 [facility] 10 mg 0-27 tablet by [facility] tablet 00:00: mouth in [place] 00 the Medical morning. [facility] 2021-07 Yes [id number] 250mg [facility]-Rom[facility] = [facility] 250 mg 0-27 500 mg day [facility] o f tablet 00:00: 1, then [place] 00 250 mg Medical days 2 to Branch 5. Take 500 mg day 1, then 250 mg days 2 to 5. nebivoloL 2021-07 Yes [id number] 10mg Take 1 [facility] 10 mg 0-27 tablet by [facility] tablet 00:00: mouth in [place] 00 the Medical morning. [facility] 2021-07 Yes [id number] 250mg [facility] = [facility] 250 mg 0-27 500 mg day [facility] o f tablet 00:00: 1, then [place] 00 250 mg Medical days 2 to Branch 5. Take 500 mg day 1, then 250 mg days 2 to 5. nebivoloL 2021-07 Yes [id number] 10mg Take 1 [facility] 10 mg 0-27 tablet by [facility] tablet 00:00: mouth in [place] 00 the Medical morning. [facility] 2021-07 Yes [id number] 250mg [facility]-Rom[facility] = [facility] 250 mg 0-27 500 mg day [facility] o f tablet 00:00: 1, then [place] 00 250 mg Medical days 2 to Branch 5. Take 500 mg day 1, then 250 mg days 2 to 5. nebivoloL 2021-07 Yes [id number] 10mg Take 1 [facility] 10 mg 0-27 tablet by [facility] of tablet 00:00: mouth in [place] 00 the Medical morning. Branch azithromyci 2021-07 Yes [id number] 250mg [facility] = [facility] 250 mg 0-27 500 mg day [facility] o f tablet 00:00: 1, then [place] 00 250 mg Medical days 2 to Branch 5. Take 500 mg day 1, then 250 mg days 2 to 5. hydroCHLORO 2021-07- No [id number] 12.5mg Take 1 [facility] thiazide 0-27 04- tablet by ity o f 12.5 mg 00:00: 00:00 mouth [place] tablet 00 :00 every Medical morning. Branch propranoloL 2021-07- No [id number] 10mg Take 1 [facility] 10 mg 0-27 12-29 9105 tablet by [facility] of tablet 00:00: 00:00 mouth in [place] 00 :00 the Medical morning Branch and 1 tablet in the evening. propranoloL 2021-07- No [id number] 10mg Take 1 [facility] 10 mg 0-27 -29 9105 tablet by [facility] of tablet 00:00: 00:00 mouth in [place] 00 :00 the Medical morning Branch and 1 tablet in the evening. zolpidem 10 2021-07- No [id number] 10mg Take 1 [facility] mg tablet 0- tablet by ity of 00:00: 00:00 mouth at [place] 00 :00 bedtime as Medical needed for Branch Insomnia. HYDROcodone 2021-07- No [id number] 1{tbl} Take 1 [facility] n[facility] -acetaminop 0-27 11-22 tablet by it y of hen 5-325 00:00: 00:00 mouth [place] mg tablet 00 :00 every 6 Medical (six) Branch hours as needed for Pain (scale 4-6). Indication s: chronic pain PROPRANOLOL Yes [id number] TAKE 1 [facility] 10 mg 9-22 9105 TABLET BY ity of tablet 00:00: MOUTH [place] 00 TWICE Medical DAILY. Branch PROPRANOLOL Yes [id number] TAKE 1 [facility] 10 mg 9-22 9105 TABLET BY [facility] of tablet 00:00: MOUTH [place] 00 TWICE Medical DAILY. Branch PROPRANOLOL Yes [id number] TAKE 1 [facility] 10 mg 9-22 9105 TABLET BY ity of tablet 00:00: MOUTH [place] 00 TWICE Medical DAILY. Branch PROPRANOLOL Yes [id number] TAKE 1 [facility] 10 mg 9-22 9105 TABLET BY ity of tablet 00:00: MOUTH [place] 00 TWICE Medical DAILY. Branch PROPRANOLOL 2021-0 Yes [id number] TAKE 1 [facility] 10 mg 9-22 9105 TABLET BY [facility] of tablet 00:00: MOUTH [place] 00 TWICE Medical DAILY. Branch PROPRANOLOL Yes [id number] TAKE 1 [facility] 10 mg 9-22 9105 TABLET BY ity of tablet 00:00: MOUTH [place] 00 TWICE Medical DAILY. Branch PROPRANOLOL 2021- No [id number] TAKE 1 [facility] 10 mg 9-22 10-27 9105 TABLET BY [facility]y of tablet 00:00: 00:00 MOUTH [place] 00 :00 TWICE Medical DAILY. Branch PROPRANOLOL 2021-2021- No [id number] TAKE 1 [facility] 10 mg 9-22 10-27 9105 TABLET BY ity of tablet 00:00: 00:00 MOUTH [place] 00 :00 TWICE Medical DAILY. Branch HYDROcodone 2021- No [id number] 1{tbl} Take 1 [facility] -acetaminop 03-29 tablet by it y of hen 5-325 00:00: 04:59 mouth [place] mg tablet 00 :00 every 6 Medical (six) Branch hours as needed for Pain (scale 4-6) for up to 7 days. Indication s: chronic pain HYDROcodone 2021- No [id number] 1{tbl} Take 1 [facility] -acetaminop 03-29 tablet by it y of hen 5-325 00:00: 04:59 mouth [place] mg tablet 00 :00 every 6 Medical (six) Branch hours as needed for Pain (scale 4-6) for up to 7 days. Indication s: chronic pain lisinopril 2021- No 40mg Take 40 mg [facility] 40 mg 03-24 by mouth ity of tablet 15:55: 00:00 daily. [place] 02 :00 Medical Branch zolpidem 10 Yes [id number] 10mg Take 1 [facility] mg tablet 03-24 tablet by ity o f 00:00: mouth at [place] 00 bedtime as Medical needed for Branch Insomnia. lisinopriL Yes [id number] 40mg Take 1 [facility] 40 mg - tablet by [facility] of tablet 00:00: mouth in [place] 00 the Medical morning. Branch zolpidem 10 2021-0 Yes [id number] 10mg Take 1 [facility] mg tablet 9-01 tablet by ity o f 00:00: mouth at [place] 00 bedtime as Medical needed for Branch Insomnia. lisinopriL 0 Yes [id number] 40mg Take 1 [facility] 40 mg 9-01 tablet by [facility] of tablet 00:00: mouth in [place] 00 the Medical morning. Branch zolpidem 10 0 Yes [id number] 10mg Take 1 [facility] mg tablet 9-01 tablet by ity o f 00:00: mouth at [place] 00 bedtime as Medical needed for Branch Insomnia. lisinopriL 0 Yes [id number] 40mg Take 1 [facility] 40 mg 9-01 tablet by [facility] of tablet 00:00: mouth in [place] the Medical morning. Branch zolpidem 10 2021-0 Yes [id number] 10mg Take 1 [facility] mg tablet 9-01 tablet by ity o f 00:00: mouth at [place] 00 bedtime as Medical needed for Branch Insomnia. lisinopriL 0 Yes [id number] 40mg Take 1 [facility] 40 mg 9-01 tablet by [facility] of tablet 00:00: mouth in [place] the Medical morning. Branch zolpidem 10 0 Yes [id number] 10mg Take 1 [facility] mg tablet 9-01 tablet by ity o f 00:00: mouth at [place] 00 bedtime as Medical needed for Branch Insomnia. lisinopriL 2021-0 Yes [id number] 40mg Take 1 [facility] 40 mg 9-01 tablet by [facility] of tablet 00:00: mouth in [place] the Medical morning. Branch zolpidem 10 0 Yes [id number] 10mg Take 1 [facility] mg tablet 9-01 tablet by ity o f 00:00: mouth at [place] 00 bedtime as Medical needed for Branch Insomnia. lisinopriL 2021-0 Yes [id number] 40mg Take 1 [facility] 40 mg 9-01 tablet by [facility] of tablet 00:00: mouth in [place] 00 the Medical morning. Branch zolpidem 10 2021-0 Yes [id number] 10mg Take 1 [facility] mg tablet 9-01 tablet by ity o f 00:00: mouth at [place] 00 bedtime as Medical needed for Branch Insomnia. lisinopriL 0 Yes [id number] 40mg Take 1 [facility] 40 mg 9-01 tablet by [facility] of tablet 00:00: mouth in [place] 00 the Medical morning. Branch zolpidem 10 0 Yes [id number] 10mg Take 1 [facility] mg tablet 9-01 tablet by ity o f 00:00: mouth at [place] 00 bedtime as Medical needed for Branch Insomnia. lisinopriL 0 Yes [id number] 40mg Take 1 [facility] 40 mg 9-01 tablet by [facility] of tablet 00:00: mouth in [place] 00 the Medical morning. Branch zolpidem 10 0 Yes [id number] 10mg Take 1 [facility] mg tablet 9-01 tablet by ity o f 00:00: mouth at [place] 00 bedtime as Medical needed for Branch Insomnia. lisinopriL 0 Yes [id number] 40mg Take 1 [facility] 40 mg 9-01 tablet by [facility] of tablet 00:00: mouth in [place] 00 the Medical morning. Branch zolpidem 10 0 Yes [id number] 10mg Take 1 [facility] mg tablet 9-01 tablet by ity o f 00:00: mouth at [place] 00 bedtime as Medical needed for Branch Insomnia. lisinopriL 0 Yes [id number] 40mg Take 1 [facility] 40 mg 9-01 tablet by [facility] of tablet 00:00: mouth in [place] 00 the Medical morning. Branch zolpidem 10 2021- No [id number] 10mg Take 1 [facility] mg tablet - 10- tablet by ity of 00:00: 00:00 mouth at [place] 00 :00 bedtime as Medical needed for Branch Insomnia. lisinopriL 0 2021- No [id number] 40mg Take 1 [facility] 40 mg 9- 10-27 tablet by ity of tablet 00:00: 00:00 mouth in [place] 00 :00 the Medical morning. Branch zolpidem 10 0 2021- No [id number] 10mg Take 1 [facility] mg tablet 9- 10-27 tablet by ity of 00:00: 00:00 mouth at [place] 00 :00 bedtime as Medical needed for Branch Insomnia. lisinopriL 2021- No [id number] 40mg Take 1 [facility] 40 mg -08 02-27 tablet by [facility]y of tablet 00:00: 00:00 mouth in [place] 00 :00 the Medical morning. Branch HYDROcodone 2021- No [id number] 1{tbl} Take 1 [facility] n[facility] -acetaminop 8-10 08-18 tablet by it y of hen 5-325 00:00: 04:59 mouth [place] mg tablet 00 :00 every 6 Medical (six) Branch hours as needed for Pain (scale 4-6) for up to 7 days. Indication s: chronic pain zolpidem 10 Yes [id number] 10mg Take 1 [facility] mg tablet 7-28 tablet by ity o f 00:00: mouth at [place] 00 bedtime as Medical needed for Branch Insomnia. zolpidem 10 Yes [id number] 10mg Take 1 [facility] mg tablet 7-28 tablet by ity o f 00:00: mouth at [place] 00 bedtime as Medical needed for Branch Insomnia. zolpidem 10 2021- No [id number] 10mg Take 1 [facility] mg tablet 7-28 03-24 tablet by ity of 00:00: 00:00 mouth at [place] 00 :00 bedtime as Medical needed for Branch Insomnia. molnupiravi Yes [id number] 800mg Take 4 [facility] r 200 mg 7-22 capsules ity of capsule 00:00: by mouth [place] 00 every 12 Medical (twelve) Branch hours. molnupiravi Yes [id number] 800mg Take 4 [facility] r 200 mg 7-22 capsules ity of capsule 00:00: by mouth [place] 00 every 12 Medical (twelve) Branch hours. molnupiravi Yes [id number] 800mg Take 4 [facility] r 200 mg 7-22 capsules ity of capsule 00:00: by mouth [place] 00 every 12 Medical (twelve) Branch hours. molnupiravi Yes [id number] 800mg Take 4 [facility] r 200 mg 7-22 capsules ity of capsule 00:00: by mouth [place] [id number] every 12 Medical (twelve) Branch hours. molnupiravi Yes [id number] 800mg Take 4 [facility] r 200 mg 7-22 capsules ity of capsule 00:00: by mouth [place] 00 every 12 Medical (twelve) Branch hours. molnupiravi 2021-0 Yes [id number] 800mg Take 4 [facility] r 200 mg 7-22 capsules ity of capsule 00:00: by mouth [place] 00 every 12 Medical (twelve) Branch hours. molnupiravi 2021-0 Yes [id number] 800mg Take 4 [facility] r 200 mg 7-22 capsules ity of capsule 00:00: by mouth [place] 00 every 12 Medical (twelve) Branch hours. molnupiravi 2021-0 Yes [id number] 800mg Take 4 [facility] r 200 mg 7-22 capsules ity of capsule 00:00: by mouth [place] 00 every 12 Medical (twelve) Branch hours. molnupiravi 2021-0 Yes [id number] 800mg Take 4 [facility] r 200 mg 7-22 capsules ity of capsule 00:00: by mouth [place] 00 every 12 Medical (twelve) Branch hours. molnupiravi 2021-0 Yes [id number] 800mg Take 4 [facility] r 200 mg 7-22 capsules ity of capsule 00:00: by mouth [place] 00 every 12 Medical (twelve) Branch hours. molnupiravi 0 Yes [id number] 800mg Take 4 [facility] r 200 mg 7-22 capsules ity of capsule 00:00: by mouth [place] 00 every 12 Medical (twelve) Branch hours. molnupiravi 2021-0 Yes [id number] 800mg Take 4 [facility] r 200 mg 7-22 capsules ity of capsule 00:00: by mouth [place] 00 every 12 Medical (twelve) Branch hours. molnupiravi 2021-0 Yes [id number] 800mg Take 4 [facility] r 200 mg 7-22 capsules ity of capsule 00:00: by mouth [place] 00 every 12 Medical (twelve) Branch hours. molnupiravi 2021-0 Yes [id number] 800mg Take 4 [facility] r 200 mg 7-22 capsules ity of capsule 00:00: by mouth [place] 00 every 12 Medical (twelve) Branch hours. molnupiravi 2021-0 Yes [id number] 800mg Take 4 [facility] r 200 mg 7-22 capsules ity of capsule 00:00: by mouth [place] 00 every 12 Medical (twelve) Branch hours. molnupiravi 2021-0 Yes [id number] 800mg Take 4 [facility] r 200 mg 7-22 capsules ity of capsule 00:00: by mouth [place] 00 every 12 Medical (twelve) Branch hours. molnupiravi 2021-0 Yes [id number] 800mg Take 4 [facility] r 200 mg 7-22 capsules ity of capsule 00:00: by mouth [place] 00 every 12 Medical (twelve) Branch hours. molnupiravi 0 Yes [id number] 800mg Take 4 [facility] r 200 mg 7-22 capsules ity of capsule 00:00: by mouth [place] 00 every 12 Medical (twelve) Branch hours. molnupiravi 0 Yes [id number] 800mg Take 4 [facility] r 200 mg 7-22 capsules ity of capsule 00:00: by mouth [place] 00 every 12 Medical (twelve) Branch hours. molnupiravi 0 Yes [id number] 800mg Take 4 [facility] r 200 mg 7-22 capsules ity of capsule 00:00: by mouth [place] 00 every 12 Medical (twelve) Branch hours. molnupiravi 0 Yes [id number] 800mg Take 4 [facility] r 200 mg 7-22 capsules ity of capsule 00:00: by mouth [place] 00 every 12 Medical (twelve) Branch hours. molnupiravi 2021-0 Yes [id number] 800mg Take 4 [facility] r 200 mg 7-22 capsules ity of capsule 00:00: by mouth [place] 00 every 12 Medical (twelve) Branch hours. molnupiravi 0 Yes [id number] 800mg Take 4 [facility] r 200 mg 7-22 capsules ity of capsule 00:00: by mouth [place] 00 every 12 Medical (twelve) Branch hours. molnupiravi 0 2021- No [id number] 800mg Take 4 [facility] r 200 mg 7-22 12-29 capsules ity of capsule 00:00: 00:00 by mouth [place] 00 :00 every 12 Medical (twelve) Branch hours. molnupiravi 2021-0 2021- No [id number] 800mg Take 4 [facility] r 200 mg 7-22 12-29 capsules ity of capsule 00:00: 00:00 by mouth [place] 00 :00 every 12 Medical (twelve) Branch hours. propranoloL 2021-0 Yes [id number] 10mg Take 1 [facility] 10 mg 3-24 9105 tablet by ity of tablet 00:00: mouth 2 [place] (two) Medical times Branch daily. propranoloL 2022-0 Yes [id number] 10mg Take 1 [facility] 10 mg 3-24 9105 tablet by ity of tablet 00:00: mouth 2 [place] (two) Medical times Branch daily. propranoloL 2022-0 Yes [id number] 10mg Take 1 [facility] 10 mg 3-24 9105 tablet by ity of tablet 00:00: mouth 2 [place] (two) Medical times Branch daily. propranoloL 2022-0 Yes [id number] 10mg Take 1 [facility] 10 mg 3-24 9105 tablet by ity of tablet 00:00: mouth 2 [place] (two) Medical times Branch daily. propranoloL 2022-0 Yes [id number] 10mg Take 1 [facility] 10 mg 3-24 9105 tablet by ity of tablet 00:00: mouth 2 [place] (two) Medical times Branch daily. propranoloL 2022-0 Yes [id number] 10mg Take 1 [facility] 10 mg 3-24 9105 tablet by ity of tablet 00:00: mouth 2 [place] (two) Medical times Branch daily. HYDROcodone 2021-0 Yes 1{tbl} Take 1 [facility] -acetaminop 3-24 tablet by [facility] of hen 5-325 00:00: mouth. [place] mg tablet 00 Medical Branch HYDROcodone 2021-0 2021- No 1{tbl} Take 1 [facility] n[facility] -acetaminop 3-24 10-27 tablet by it y of hen 5-325 00:00: 00:00 mouth. [place] mg tablet 00 :00 Medical Branch HYDROcodone 2021-0 2021- No 1{tbl} Take 1 [facility] nivers -acetaminop 3-24 10-27 tablet by it y of hen 5-325 00:00: 00:00 mouth. [place] mg tablet 00 :00 Medical Branch HYDROcodone 2-0 2021- No 1{tbl} Take 1 [facility] n[facility] -acetaminop 3-24 10-27 tablet by it y of hen 5-325 00:00: 00:00 mouth. [place] mg tablet 00 :00 Medical Branch propranoloL 2022-0 2- No [id number] 10mg Take 1 [facility] 10 mg 3-24 - 9105 tablet by ity of tablet 00:00: 00:00 mouth 2 [place] 00 :00 (two) Medical times Branch daily. hydroCHLORO 2022-0 Yes 12.5mg Take 12.5 [facility] [...] every Medical morning. Branch ACETAMINOPH 2022-0 Yes [id number] TAKE 1 [facility] EN-CODEINE 3-08 TABLET BY ity of 300-30 mg 00:00: MOUTH [place] tablet 00 EVERY 4 Medical HOURS Branch NEEDED FOR MODERATE PAIN OR CHRONIC PAIN ACETAMINOPH 2022-0 Yes [id number] TAKE 1 [facility] EN-CODEINE 3-08 TABLET BY ity of 300-30 mg 00:00: MOUTH [place] tablet 00 EVERY 4 Medical HOURS Branch NEEDED FOR MODERATE PAIN OR CHRONIC PAIN ACETAMINOPH 2022-0 Yes [id number] TAKE 1 [facility] EN-CODEINE 3-08 TABLET BY ity of 300-30 mg 00:00: MOUTH [place] tablet 00 EVERY 4 Medical HOURS Branch NEEDED FOR MODERATE PAIN OR CHRONIC PAIN ACETAMINOPH 2022-0 Yes [id number] TAKE 1 [facility] EN-CODEINE 3-08 TABLET BY ity of 300-30 mg 00:00: MOUTH [place] tablet 00 EVERY 4 Medical HOURS Branch NEEDED FOR MODERATE PAIN OR CHRONIC PAIN ACETAMINOPH 2022-0 Yes [id number] TAKE 1 [facility] EN-CODEINE 3-08 TABLET BY ity of 300-30 mg 00:00: MOUTH [place] tablet 00 EVERY 4 Medical HOURS Branch NEEDED FOR MODERATE PAIN OR CHRONIC PAIN ACETAMINOPH 2022-0 Yes [id number] TAKE 1 [facility] EN-CODEINE 3-08 TABLET BY ity of 300-30 mg 00:00: MOUTH [place] tablet 00 EVERY 4 Medical HOURS Branch NEEDED FOR MODERATE PAIN OR CHRONIC PAIN ACETAMINOPH 2022-0 Yes [id number] TAKE 1 [facility] EN-CODEINE 3-08 TABLET BY ity of 300-30 mg 00:00: MOUTH [place] tablet 00 EVERY 4 Medical HOURS Branch NEEDED FOR MODERATE PAIN OR CHRONIC PAIN ACETAMINOPH 2022-0 Yes [id number] TAKE 1 [facility] EN-CODEINE 3-08 TABLET BY ity of 300-30 mg 00:00: MOUTH [place] tablet 00 EVERY 4 Medical HOURS Branch NEEDED FOR MODERATE PAIN OR CHRONIC PAIN ACETAMINOPH 2022-0 Yes [id number] TAKE 1 [facility] EN-CODEINE 3-08 TABLET BY ity of 300-30 mg 00:00: MOUTH [place] tablet 00 EVERY 4 Medical HOURS Branch NEEDED FOR MODERATE PAIN OR CHRONIC PAIN ACETAMINOPH 2022-0 Yes [id number] TAKE 1 [facility] EN-CODEINE 3-08 TABLET BY ity of 300-30 mg 00:00: MOUTH [place] tablet 00 EVERY 4 Medical HOURS Branch NEEDED FOR MODERATE PAIN OR CHRONIC PAIN ACETAMINOPH 2022-0 Yes [id number] TAKE 1 [facility] EN-CODEINE 3-08 TABLET BY ity of 300-30 mg 00:00: MOUTH [place] tablet 00 EVERY 4 Medical HOURS Branch NEEDED FOR MODERATE PAIN OR CHRONIC PAIN ACETAMINOPH 2022-0 Yes [id number] TAKE 1 [facility] EN-CODEINE 3-08 TABLET BY ity of 300-30 mg 00:00: MOUTH [place] tablet 00 EVERY 4 Medical HOURS Branch NEEDED FOR MODERATE PAIN OR CHRONIC PAIN ACETAMINOPH 2022-0 2022- No [id number] TAKE 1 [facility] EN-CODEINE 3-08 10-27 TABLET BY ity of 300-30 mg 00:00: 00:00 MOUTH [place] tablet 00 :00 EVERY 4 Medical HOURS Branch NEEDED FOR MODERATE PAIN OR CHRONIC PAIN ACETAMINOPH 2022-0 2022- No [id number] TAKE 1 [facility] EN-CODEINE 3-08 10-27 TABLET BY ity of 300-30 mg 00:00: 00:00 MOUTH [place] tablet 00 :00 EVERY 4 Medical HOURS Branch NEEDED FOR MODERATE PAIN OR CHRONIC PAIN furosemide 2022-0 Yes TAKE 1 [facility] rs [...] TABLET BY ity of tablet 00:00: MOUTH [place] 00 EVERY DAY [facility] BLOOD PRESSURE WE DISUSSED furosemide 2021-0 Yes TAKE 1 [facility] 20 mg 3-03 TABLET BY ity of tablet 00:00: MOUTH [place] 00 EVERY DAY Medical MON[facility]OR [facility] BLOOD PRESSURE WE DISUSSED furosemide 2021-0 Yes TAKE 1 [facility] 20 mg 3-03 TABLET BY ity of tablet 00:00: MOUTH [place] 00 EVERY DAY Medical MON[facility]OR Branch BLOOD PRESSURE WE DISUSSED furosemide 2021-0 Yes TAKE 1 [facility] 20 mg 3-03 TABLET BY ity of tablet 00:00: MOUTH [place] 00 EVERY DAY Medical MON[facility]OR Branch BLOOD PRESSURE WE DISUSSED furosemide 2021-0 Yes TAKE 1 [facility] 20 mg 3-03 TABLET BY ity of tablet 00:00: MOUTH [place] 00 EVERY DAY Medical MON[facility]OR Branch BLOOD PRESSURE WE DISUSSED furosemide 2021-0 Yes TAKE 1 [facility] 20 mg 3-03 TABLET BY ity of tablet 00:00: [facility] 00 EVERY DAY Medical MONITOR [facility] BLOOD PRESSURE WE DISUSSED furosemide 2021-0 Yes TAKE 1 [facility] 20 mg 3-03 TABLET BY ity of tablet 00:00: MOUTH [place] 00 EVERY DAY Medical MON[facility]OR Branch BLOOD PRESSURE WE DISUSSED furosemide 2021-0 Yes TAKE 1 [facility] 20 mg 3-03 TABLET BY ity of tablet 00:00: MOUTH [place] 00 EVERY DAY Medical MON[facility]OR Branch BLOOD PRESSURE WE DISUSSED furosemide 2021-0 Yes TAKE 1 [facility] 20 mg 3-03 TABLET BY ity of tablet 00:00: [facility] 00 EVERY DAY Medical MON[facility]OR [facility] BLOOD PRESSURE WE DISUSSED furosemide 2021-0 Yes TAKE 1 [facility] 20 mg 3-03 TABLET BY ity of tablet 00:00: MOUTH [place] 00 EVERY DAY Medical MON[facility]OR Branch BLOOD PRESSURE WE DISUSSED furosemide 2021-0 Yes TAKE 1 [facility] 20 mg 3-03 TABLET BY ity of tablet 00:00: MOUTH [place] 00 EVERY DAY Medical MON[facility]OR Branch BLOOD PRESSURE WE DISUSSED furosemide 2021-0 Yes TAKE 1 [facility] 20 mg 3-03 TABLET BY ity of tablet 00:00: MOUTH [place] 00 EVERY DAY Medical MONITOR Branch BLOOD PRESSURE WE DISUSSED furosemide 2-0 Yes TAKE 1 [facility] 20 mg 3-03 TABLET BY ity of tablet 00:00: MOUTH [place] 00 EVERY DAY Medical MON[facility]OR Branch BLOOD PRESSURE WE DISUSSED furosemide 2-0 Yes TAKE 1 [facility] 20 mg 3-03 TABLET BY ity of tablet 00:00: [facility] 00 EVERY DAY Medical MON[facility]OR [facility] BLOOD PRESSURE WE DISUSSED furosemide 2021-0 Yes TAKE 1 [facility] 20 mg 3-03 TABLET BY ity of tablet 00:00: [facility] 00 EVERY DAY Medical MON[facility]OR [facility] BLOOD PRESSURE WE DISUSSED furosemide 2021-0 Yes TAKE 1 [facility] 20 mg 3-03 TABLET BY ity of tablet 00:00: MOUTH [place] 00 EVERY DAY Medical MON[facility]OR Branch BLOOD PRESSURE WE DISUSSED furosemide 2021-0 Yes TAKE 1 [facility] 20 mg 3-03 TABLET BY ity of tablet 00:00: [facility] 00 EVERY DAY Medical MON[facility]OR [facility] BLOOD PRESSURE WE DISUSSED furosemide 2021-0 Yes TAKE 1 [facility] 20 mg 3-03 TABLET BY ity of tablet 00:00: [facility] 00 EVERY DAY Medical MON[facility]OR [facility] BLOOD PRESSURE WE DISUSSED furosemide 2021-0 Yes TAKE 1 [facility] 20 mg 3-03 TABLET BY ity of tablet 00:00: [facility] 00 EVERY DAY Medical MON[facility]OR Branch BLOOD PRESSURE WE DISUSSED furosemide 2021-0 Yes TAKE 1 [facility] 20 mg 3-03 TABLET BY ity of tablet 00:00: [facility] 00 EVERY DAY Medical MON[facility]OR Branch BLOOD PRESSURE WE DISUSSED furosemide 2021-0 Yes TAKE 1 [facility] 20 mg 3-03 TABLET BY ity of tablet 00:00: [facility] 00 EVERY DAY Medical MON[facility]OR [facility] BLOOD PRESSURE WE DISUSSED furosemide 2-0 Yes TAKE 1 [facility] 20 mg 3-03 TABLET BY ity of tablet 00:00: [facility] 00 EVERY DAY Medical MON[facility]OR [facility] BLOOD PRESSURE WE DISUSSED furosemide 2-0 Yes TAKE 1 [facility] 20 mg 3-03 TABLET BY ity of tablet 00:00: [facility] 00 EVERY DAY Medical MON[facility]OR [facility] BLOOD PRESSURE WE DISUSSED furosemide 2-0 Yes TAKE 1 [facility] 20 mg 3-03 TABLET BY ity of tablet 00:00: [facility] 00 EVERY DAY Medical MON[facility]OR [facility] BLOOD PRESSURE WE DISUSSED furosemide 2-0 Yes TAKE 1 [facility] 20 mg 3-03 TABLET BY ity of tablet 00:00: [facility] 00 EVERY DAY Medical MON[facility]OR [facility] BLOOD PRESSURE WE DISUSSED furosemide 2-0 Yes TAKE 1 [facility] 20 mg 3-03 TABLET BY ity of tablet 00:00: MOUTH [place] 00 EVERY DAY Medical MONITOR Branch BLOOD PRESSURE WE DISUSSED furosemide 2021-0 Yes TAKE 1 [facility] 20 mg 3-03 TABLET BY ity of tablet 00:00: MOUTH 00 EVERY DAY Medical MONITOR Branch BLOOD PRESSURE WE DISUSSED furosemide 2021-0 Yes TAKE 1 [facility] 20 mg 3-03 TABLET BY ity of tablet 00:00: MOUTH EVERY DAY Medical MONITOR Branch BLOOD PRESSURE WE DISUSSED furosemide 2021-0 Yes TAKE 1 [facility] 20 mg 3-03 TABLET BY ity of tablet 00:00: [facility] EVERY DAY Medical MON[facility]OR Branch BLOOD PRESSURE WE DISUSSED furosemide 2021-0 Yes TAKE 1 [facility] 20 mg 3-03 TABLET BY ity of tablet 00:00: [facility] EVERY DAY Medical MON[facility]OR Branch BLOOD PRESSURE WE DISUSSED furosemide 2021-0 Yes TAKE 1 [facility] rs 20 mg 3-03 TABLET BY ity of tablet 00:00: MOUTH [place] EVERY DAY Medical MONITOR Branch BLOOD PRESSURE WE DISUSSED furosemide 2021-0 Yes TAKE 1 [facility] 20 mg 3-03 TABLET BY ity of tablet 00:00: [facility] EVERY DAY Medical MONITOR Branch BLOOD PRESSURE WE DISUSSED furosemide 2021-0 Yes TAKE 1 [facility] 20 mg 3-03 TABLET BY ity of tablet 00:00: [facility] 00 EVERY DAY Medical MON[facility]OR Branch BLOOD PRESSURE WE DISUSSED furosemide 2-0 Yes TAKE 1 [facility] rs 20 mg 3-03 TABLET BY ity of tablet 00:00: MOUTH [place] 00 EVERY DAY Medical MONITOR Branch BLOOD PRESSURE WE DISUSSED furosemide 2-0 Yes TAKE 1 [facility] 20 mg 3-03 TABLET BY ity of tablet 00:00: [facility] 00 EVERY DAY Medical MON[facility]OR Branch BLOOD PRESSURE WE DISUSSED furosemide 2-0 Yes TAKE 1 [facility] 20 mg 3-03 TABLET BY ity of tablet 00:00: [facility] 00 EVERY DAY Medical MON[facility]OR [facility] BLOOD PRESSURE WE DISUSSED furosemide 2-0 Yes TAKE 1 [facility] 20 mg 3-03 TABLET BY ity of tablet 00:00: [facility] 00 EVERY DAY Medical MON[facility]OR Branch BLOOD PRESSURE WE DISUSSED furosemide 2021-0 Yes TAKE 1 [facility] 20 mg 3-03 TABLET BY ity of tablet 00:00: MOUTH [place] 00 EVERY DAY Medical MON[facility]OR Branch BLOOD PRESSURE WE DISUSSED furosemide 2021-0 Yes TAKE 1 [facility] 20 mg 3-03 TABLET BY ity of tablet 00:00: MOUTH [place] 00 EVERY DAY Medical MONITOR Branch BLOOD PRESSURE WE DISUSSED furosemide 2021-0 Yes TAKE 1 [facility] 20 mg 3-03 TABLET BY ity of tablet 00:00: MOUTH [place] 00 EVERY DAY Medical MON[facility]OR Branch BLOOD PRESSURE WE DISUSSED furosemide 2021-0 Yes TAKE 1 [facility] 20 mg 3-03 TABLET BY ity of tablet 00:00: MOUTH [place] 00 EVERY DAY Medical MON[facility]OR Branch BLOOD PRESSURE WE DISUSSED furosemide 0 Yes TAKE 1 [facility] 20 mg 3-03 TABLET BY ity of tablet 00:00: [facility] 00 EVERY DAY Medical MON[facility]OR Branch BLOOD PRESSURE WE DISUSSED furosemide 0 Yes TAKE 1 [facility] rs 20 mg 3-03 TABLET BY ity of tablet 00:00: MOUTH [place] 00 EVERY DAY Medical MON[facility]OR Branch BLOOD PRESSURE WE DISUSSED furosemide 2021-0 Yes TAKE 1 [facility] 20 mg 3-03 TABLET BY ity of tablet 00:00: [facility] 00 EVERY DAY Medical MON[facility]OR Branch BLOOD PRESSURE WE DISUSSED furosemide 2021-0 Yes TAKE 1 [facility] 20 mg 3-03 TABLET BY ity of tablet 00:00: [facility] 00 EVERY DAY Medical MONITOR Branch BLOOD PRESSURE WE DISUSSED furosemide 2021-0 Yes TAKE 1 [facility] 20 mg 3-03 TABLET BY ity of tablet 00:00: [facility] 00 EVERY DAY Medical MON[facility]OR Branch BLOOD PRESSURE WE DISUSSED furosemide 2021-0 Yes TAKE 1 [facility] 20 mg 3-03 TABLET BY ity of tablet 00:00: MOUTH [place] 00 EVERY DAY Medical MON[facility]OR Branch BLOOD PRESSURE WE DISUSSED furosemide 2021-0 Yes TAKE 1 [facility] 20 mg 3-03 TABLET BY ity of tablet 00:00: MOUTH [place] 00 EVERY DAY Medical MON[facility]OR Branch BLOOD PRESSURE WE DISUSSED furosemide 2021-0 Yes TAKE 1 [facility] 20 mg 3-03 TABLET BY ity of tablet 00:00: [facility] 00 EVERY DAY Medical MON[facility]OR Branch BLOOD PRESSURE WE DISUSSED furosemide 2022-0 Yes TAKE 1 [facility] rs 20 mg 3-03 TABLET BY ity of tablet 00:00: MOUTH [place] [address] EVERY DAY Medical MONITOR Branch BLOOD PRESSURE WE DISUSSED furosemide Yes TAKE 1 Unive rs 20 mg 3-03 TABLET BY ity of tablet 00:00: MOUTH [place] [address] DAY Medical MONITOR Branch BLOOD PRESSURE WE DISUSSED furosemide 0 Yes TAKE 1 Unive rs 20 mg 3-03 TABLET BY ity of tablet 00:00: MOUTH [place] [address] EVERY DAY Medical MONITOR Branch BLOOD PRESSURE WE DISUSSED atorvastati Yes 40mg Take 40 mg Univers n 40 mg 1-21 by mouth ity of tablet 00:00: daily. [place] [facility] atorvastati 0 Yes 40mg Take 40 mg Univers n 40 mg 1-21 by mouth ity of tablet 00:00: daily. [place] [facility] atorvastati 0 Yes 40mg Take 40 mg [facility] n 40 mg 1-21 by mouth ity of tablet 00:00: daily. [place] [facility] atorvastati 0 Yes 40mg Take 40 mg [facility] n 40 mg 1-21 by mouth ity of tablet 00:00: daily. [place] [facility] atorvastati 0 Yes 40mg Take 40 mg [facility] n 40 mg 1-21 by mouth ity of tablet 00:00: daily. [place] [facility] atorvastati 0 Yes 40mg Take 40 mg [facility] n 40 mg 1-21 by mouth ity of tablet 00:00: daily. [place] [facility] atorvastati 2021-0 Yes 40mg Take 40 mg [facility] n 40 mg 1-21 by mouth ity of tablet 00:00: daily. [place] [facility] atorvastati 0 Yes 40mg Take 40 mg [facility] n 40 mg 1-21 by mouth ity of tablet 00:00: daily. [place] [facility] atorvastati 0 Yes 40mg Take 40 mg [facility] n 40 mg 1-21 by mouth ity of tablet 00:00: daily. [place] [facility] atorvastati 2021-0 Yes 40mg Take 40 mg [facility] n 40 mg 1-21 by mouth ity of tablet 00:00: daily. [place] [facility] atorvastati 2022-0 Yes 40mg Take 40 mg Univers n 40 mg 1-21 by mouth ity of tablet 00:00: daily. [facility] atorvastati 0 Yes 40mg Take 40 mg Univers n 40 mg 1-21 by mouth ity of tablet 00:00: daily. [facility] atorvastati 0 Yes 40mg Take 40 mg Univers n 40 mg 1-21 by mouth ity of tablet 00:00: daily. [facility] atorvastati 0 Yes 40mg Take 40 mg Univers n 40 mg 1-21 by mouth ity of tablet 00:00: daily. [facility] atorvastati 0 Yes 40mg Take 40 mg Univers n 40 mg 1-21 by mouth ity of tablet 00:00: daily. [facility] atorvastati 0 Yes 40mg Take 40 mg Univers n 40 mg 1-21 by mouth ity of tablet 00:00: daily. [place] [facility] atorvastati 0 Yes 40mg Take 40 mg Univers n 40 mg 1-21 by mouth ity of tablet 00:00: daily. [facility] atorvastati 0 Yes 40mg Take 40 mg Univers n 40 mg 1-21 by mouth ity of tablet 00:00: daily. [place] [facility] atorvastati 0 Yes 40mg Take 40 mg Univers n 40 mg 1-21 by mouth ity of tablet 00:00: daily. [facility] atorvastati 2021-0 Yes 40mg Take 40 mg Univers n 40 mg 1-21 by mouth ity of tablet 00:00: daily. [facility] atorvastati 0 Yes 40mg Take 40 mg Univers n 40 mg 1-21 by mouth ity of tablet 00:00: daily. [place] [facility] atorvastati 2021-0 Yes 40mg Take 40 mg Univers n 40 mg 1-21 by mouth ity of tablet 00:00: daily. [place] [facility] atorvastati 2021-0 Yes 40mg Take 40 mg Univers n 40 mg 1-21 by mouth ity of tablet 00:00: daily. [place] [facility] atorvastati 2021-0 Yes 40mg Take 40 mg Univers n 40 mg 1-21 by mouth ity of tablet 00:00: daily. [facility] atorvastati 0 Yes 40mg Take 40 mg Univers n 40 mg 1-21 by mouth ity of tablet 00:00: daily. [facility] atorvastati 0 Yes 40mg Take 40 mg Univers n 40 mg 1-21 by mouth ity of tablet 00:00: daily. [facility] atorvastati 2021-0 Yes 40mg Take 40 mg Univers n 40 mg 1-21 by mouth ity of tablet 00:00: daily. [facility] atorvastati 0 Yes 40mg Take 40 mg Univers n 40 mg 1-21 by mouth ity of tablet 00:00: daily. [facility] atorvastati 0 Yes 40mg Take 40 mg Univers n 40 mg 1-21 by mouth ity of tablet 00:00: daily. [facility] atorvastati 0 Yes 40mg Take 40 mg Univers n 40 mg 1-21 by mouth ity of tablet 00:00: daily. [facility] atorvastati 0 Yes 40mg Take 40 mg Univers n 40 mg 1-21 by mouth ity of tablet 00:00: daily. [facility] atorvastati 0 Yes 40mg Take 40 mg Univers n 40 mg 1-21 by mouth ity of tablet 00:00: daily. [facility] atorvastati 0 Yes 40mg Take 40 mg Univers n 40 mg 1-21 by mouth ity of tablet 00:00: daily. [facility] atorvastati 2021-0 Yes 40mg Take 40 mg Univers n 40 mg 1-21 by mouth ity of tablet 00:00: daily. [facility] atorvastati 0 Yes 40mg Take 40 mg Univers n 40 mg 1-21 by mouth ity of tablet 00:00: daily. [facility] atorvastati 0 Yes 40mg Take 40 mg Univers n 40 mg 1-21 by mouth ity of tablet 00:00: daily. [facility] atorvastati 2021-0 Yes 40mg Take 40 mg Univers n 40 mg 1-21 by mouth ity of tablet 00:00: daily. [facility] atorvastati 2022-0 Yes 40mg Take 40 mg Univers n 40 mg 1-21 by mouth ity of tablet 00:00: daily. [facility] atorvastati 2021-0 Yes 40mg Take 40 mg Univers n 40 mg 1-21 by mouth ity of tablet 00:00: daily. [facility] atorvastati 2021-0 Yes 40mg Take 40 mg Univers n 40 mg 1-21 by mouth ity of tablet 00:00: daily. [facility] atorvastati 2021-0 Yes 40mg Take 40 mg Univers n 40 mg 1-21 by mouth ity of tablet 00:00: daily. [facility] atorvastati 2021-0 Yes 40mg Take 40 mg Univers n 40 mg 1-21 by mouth ity of tablet 00:00: daily. [facility] atorvastati 2021-0 Yes 40mg Take 40 mg Univers n 40 mg 1-21 by mouth ity of tablet 00:00: daily. [facility] atorvastati 2021-0 Yes 40mg Take 40 mg Univers n 40 mg 1-21 by mouth ity of tablet 00:00: daily. [facility] Branch atorvastati 2021-0 Yes 40mg Take 40 mg Univers n 40 mg 1-21 by mouth ity of tablet 00:00: daily. [facility] Branch atorvastati 2021-0 Yes 40mg Take 40 mg Univers n 40 mg 1-21 by mouth ity of tablet 00:00: daily. [facility] Branch atorvastati 2021-0 Yes 40mg Take 40 mg Univers n 40 mg 1-21 by mouth ity of tablet 00:00: daily. [facility] atorvastati 2021-0 Yes 40mg Take 40 mg Univers n 40 mg 1-21 by mouth ity of tablet 00:00: daily. [facility] atorvastati 2021-0 Yes 40mg Take 40 mg Univers n 40 mg 1-21 by mouth ity of tablet 00:00: daily. [facility] atorvastati 2021-0 Yes 40mg Take 40 mg Univers n 40 mg 1-21 by mouth ity of tablet 00:00: daily. [facility] atorvastati 2021-0 Yes 40mg Take 40 mg [...] ity of tablet 00:00: daily. [facility] Branch nebivoloL 2021-0 Yes TAKE 1 Univer s 10 mg 1-11 TABLET BY ity of tablet 00:00: [facility] EVERY DAY Medical Branch nebivoloL 2-0 Yes TAKE 1 Univer s 10 mg 1-11 TABLET BY ity of tablet 00:00: [facility] EVERY DAY Medical Branch nebivoloL 2-0 Yes TAKE 1 Un[facility] s 10 mg 1-11 TABLET BY ity of tablet 00:00: [facility] EVERY DAY Medical Branch nebivoloL 2-0 Yes TAKE 1 Un[facility] s 10 mg 1-11 TABLET BY ity of tablet 00:00: [facility] EVERY DAY Medical Branch nebivoloL 2-0 Yes TAKE 1 [facility] s 10 mg 1-11 TABLET BY ity of tablet 00:00: [facility] EVERY DAY Medical Branch nebivoloL 2-0 Yes TAKE 1 [facility] s 10 mg 1-11 TABLET BY ity of tablet 00:00: [facility] EVERY DAY Medical Branch nebivoloL 2-0 Yes TAKE 1 [facility] s 10 mg 1-11 TABLET BY ity of tablet 00:00: [facility] EVERY DAY Medical Branch nebivoloL 2-0 Yes TAKE 1 [facility] 10 mg 1-11 TABLET BY ity of tablet 00:00: [facility] EVERY DAY Medical Branch nebivoloL 2-0 Yes TAKE 1 [facility] s 10 mg 1-11 TABLET BY ity of tablet 00:00: [facility] EVERY DAY Medical Branch nebivoloL 2-0 Yes TAKE 1 Univer s 10 mg 1-11 TABLET BY ity of tablet 00:00: MOUTH [place] EVERY DAY Medical Branch nebivoloL 2021-0 Yes TAKE 1 Univer s 10 mg 1-11 TABLET BY ity of tablet 00:00: MOUTH [place] 00 EVERY DAY Medical Branch nebivoloL 2021-0 Yes TAKE 1 Univer s 10 mg 1-11 TABLET BY ity of tablet 00:00: MOUTH [place] 00 EVERY DAY Medical Branch nebivoloL 0 2- No TAKE 1 Unive rs 10 mg 1-11 10-27 TABLET BY ity of tablet 00:00: 00:00 MOUTH [place] 00 :00 EVERY DAY Medical Branch nebivoloL 2021-0 2021- No TAKE 1 Unive rs 10 mg 1-11 10-27 TABLET BY ity of tablet 00:00: 00:00 MOUTH [place] 00 :00 EVERY DAY Medical Branch ergocalcife 2020-0 Yes [id number] Take 1 [facility] rol, 9-07 capsule by ity of vitamin d2, 00:00: mouth [place] 1,250 mcg 00 weekly. Medical (50,000 Branch unit) capsule ergocalcife 2021-0 Yes [id number] Take 1 [facility] rol, 9-07 capsule by ity of vitamin d2, 00:00: mouth [place] 1,250 mcg 00 weekly. Medical (50,000 Branch unit) capsule ergocalcife 2020-0 Yes [id number] Take 1 [facility] rol, 9-07 capsule by ity of vitamin d2, 00:00: mouth [place] 1,250 mcg 00 weekly. Medical (50,000 Branch unit) capsule ergocalcife 1-0 Yes [id number] Take 1 [facility] rol, 9-07 capsule by ity of vitamin d2, 00:00: mouth [place] 1,250 mcg 00 weekly. Medical (50,000 Branch unit) capsule ergocalcife 2021-0 Yes [id number] Take 1 [facility] rol, 9-07 capsule by ity of vitamin d2, 00:00: mouth [place] 1,250 mcg 00 weekly. Medical (50,000 Branch unit) capsule ergocalcife 2021-0 Yes [id number] Take 1 [facility] rol, 9-07 capsule by ity of vitamin d2, 00:00: mouth [place] 1,250 mcg 00 weekly. Medical (50,000 Branch unit) capsule ergocalcife 2021-0 Yes [id number] Take 1 [facility] rol, 9-07 capsule by ity of vitamin d2, 00:00: mouth [place] 1,250 mcg 00 weekly. Medical (50,000 Branch unit) capsule ergocalcife 2021-0 Yes [id number] Take 1 [facility] rol, 9-07 capsule by ity of vitamin d2, 00:00: mouth [place] 1,250 mcg 00 weekly. Medical (50,000 Branch unit) capsule ergocalcife 2021-0 Yes [id number] Take 1 [facility] rol, 9-07 capsule by ity of vitamin d2, 00:00: mouth [place] 1,250 mcg 00 weekly. Medical (50,000 Branch unit) capsule ergocalcife 2021-0 Yes [id number] Take 1 [facility] rol, 9-07 capsule by ity of vitamin d2, 00:00: mouth [place] 1,250 mcg 00 weekly. Medical (50,000 Branch unit) capsule ergocalcife 2021-0 Yes [id number] Take 1 [facility] rol, 9-07 capsule by ity of vitamin d2, 00:00: mouth [place] 1,250 mcg 00 weekly. Medical (50,000 Branch unit) capsule ergocalcife 2021-0 Yes [id number] Take 1 [facility] rol, 9-07 capsule by ity of vitamin d2, 00:00: mouth [place] 1,250 mcg 00 weekly. Medical (50,000 Branch unit) capsule ergocalcife 2021-0 Yes [id number] Take 1 [facility] rol, 9-07 capsule by ity of vitamin d2, 00:00: mouth [place] 1,250 mcg 00 weekly. Medical (50,000 Branch unit) capsule ergocalcife 2021-0 Yes [id number] Take 1 [facility] rol, 9-07 capsule by ity of vitamin d2, 00:00: mouth [place] 1,250 mcg 00 weekly. Medical (50,000 Branch unit) capsule ergocalcife 2021-0 Yes [id number] Take 1 [facility] rol, 9-07 capsule by ity of vitamin d2, 00:00: mouth [place] 1,250 mcg 00 weekly. Medical (50,000 Branch unit) capsule ergocalcife 2021-0 Yes [id number] Take 1 [facility] rol, 9-07 capsule by ity of vitamin d2, 00:00: mouth [place] 1,250 mcg 00 weekly. Medical (50,000 Branch unit) capsule ergocalcife 2021-0 Yes [id number] Take 1 [facility] rol, 9-07 capsule by ity of vitamin d2, 00:00: mouth [place] 1,250 mcg 00 weekly. Medical (50,000 Branch unit) capsule ergocalcife 2021-0 Yes [id number] Take 1 [facility] rol, 9-07 capsule by ity of vitamin d2, 00:00: mouth [place] 1,250 mcg 00 weekly. Medical (50,000 Branch unit) capsule ergocalcife 2021-0 Yes [id number] Take 1 [facility] rol, 9-07 capsule by ity of vitamin d2, 00:00: mouth [place] 1,250 mcg 00 weekly. Medical (50,000 Branch unit) capsule ergocalcife 2021-0 Yes [id number] Take 1 [facility] rol, 9-07 capsule by ity of vitamin d2, 00:00: mouth [place] 1,250 mcg 00 weekly. Medical (50,000 Branch unit) capsule ergocalcife 2021-0 Yes [id number] Take 1 [facility] rol, 9-07 capsule by ity of vitamin d2, 00:00: mouth [place] 1,250 mcg 00 weekly. Medical (50,000 Branch unit) capsule ergocalcife 2021-0 Yes [id number] Take 1 [facility] rol, 9-07 capsule by ity of vitamin d2, 00:00: mouth [place] 1,250 mcg 00 weekly. Medical (50,000 Branch unit) capsule ergocalcife 2021-0 Yes [id number] Take 1 [facility] rol, 9-07 capsule by ity of vitamin d2, 00:00: mouth [place] 1,250 mcg 00 weekly. Medical (50,000 Branch unit) capsule ergocalcife 2021-0 Yes [id number] Take 1 [facility] rol, 9-07 capsule by ity of vitamin d2, 00:00: mouth [place] 1,250 mcg 00 weekly. Medical (50,000 Branch unit) capsule ergocalcife 2021-0 Yes [id number] Take 1 [facility] rol, 9-07 capsule by ity of vitamin d2, 00:00: mouth [place] 1,250 mcg 00 weekly. Medical (50,000 Branch unit) capsule ergocalcife 2021-0 Yes [id number] Take 1 [facility] rol, 9-07 capsule by ity of vitamin d2, 00:00: mouth [place] 1,250 mcg 00 weekly. Medical (50,000 Branch unit) capsule ergocalcife 2021-0 Yes [id number] Take 1 [facility] rol, 9-07 capsule by ity of vitamin d2, 00:00: mouth [place] 1,250 mcg 00 weekly. Medical (50,000 Branch unit) capsule ergocalcife 2021-0 Yes [id number] Take 1 [facility] rol, 9-07 capsule by ity of vitamin d2, 00:00: mouth [place] 1,250 mcg 00 weekly. Medical (50,000 Branch unit) capsule ergocalcife 2021-0 Yes [id number] Take 1 [facility] rol, 9-07 capsule by ity of vitamin d2, 00:00: mouth [place] 1,250 mcg 00 weekly. Medical (50,000 Branch unit) capsule ergocalcife 2021-0 Yes [id number] Take 1 [facility] rol, 9-07 capsule by ity of vitamin d2, 00:00: mouth [place] 1,250 mcg 00 weekly. Medical (50,000 Branch unit) capsule ergocalcife 2021-0 Yes [id number] Take 1 [facility] rol, 9-07 capsule by ity of vitamin d2, 00:00: mouth [place] 1,250 mcg 00 weekly. Medical (50,000 Branch unit) capsule ergocalcife 2021-0 Yes [id number] Take 1 [facility] rol, 9-07 capsule by ity of vitamin d2, 00:00: mouth [place] 1,250 mcg 00 weekly. Medical (50,000 Branch unit) capsule ergocalcife 2021-0 Yes [id number] Take 1 [facility] rol, 9-07 capsule by ity of vitamin d2, 00:00: mouth [place] 1,250 mcg 00 weekly. Medical (50,000 Branch unit) capsule ergocalcife 2021-0 Yes [id number] Take 1 [facility] rol, 9-07 capsule by ity of vitamin d2, 00:00: mouth [place] 1,250 mcg 00 weekly. Medical (50,000 Branch unit) capsule ergocalcife 2021-0 Yes [id number] Take 1 [facility] rol, 9-07 capsule by ity of vitamin d2, 00:00: mouth [place] 1,250 mcg 00 weekly. Medical (50,000 Branch unit) capsule ergocalcife 2021-0 Yes [id number] Take 1 [facility] rol, 9-07 capsule by ity of vitamin d2, 00:00: mouth [place] 1,250 mcg 00 weekly. Medical (50,000 Branch unit) capsule ergocalcife 2021-0 Yes [id number] Take 1 [facility] rol, 9-07 capsule by ity of vitamin d2, 00:00: mouth [place] 1,250 mcg 00 weekly. Medical (50,000 Branch unit) capsule ergocalcife 2021-0 Yes [id number] Take 1 [facility] rol, 9-07 capsule by ity of vitamin d2, 00:00: mouth [place] 1,250 mcg 00 weekly. Medical (50,000 Branch unit) capsule ergocalcife 2021-0 Yes [id number] Take 1 [facility] rol, 9-07 capsule by ity of vitamin d2, 00:00: mouth [place] 1,250 mcg 00 weekly. Medical (50,000 Branch unit) capsule ergocalcife 2021-0 Yes [id number] Take 1 [facility] rol, 9-07 capsule by ity of vitamin d2, 00:00: mouth [place] 1,250 mcg 00 weekly. Medical (50,000 Branch unit) capsule ergocalcife 2021-0 Yes [id number] Take 1 [facility] rol, 9-07 capsule by ity of vitamin d2, 00:00: mouth [place] 1,250 mcg 00 weekly. Medical (50,000 Branch unit) capsule ergocalcife 2021-0 Yes [id number] Take 1 [facility] rol, 9-07 capsule by ity of vitamin d2, 00:00: mouth [place] 1,250 mcg 00 weekly. Medical (50,000 Branch unit) capsule ergocalcife 2021-0 Yes [id number] Take 1 [facility] rol, 9-07 capsule by ity of vitamin d2, 00:00: mouth [place] 1,250 mcg 00 weekly. Medical (50,000 Branch unit) capsule ergocalcife 2021-0 Yes [id number] Take 1 [facility] rol, 9-07 capsule by ity of vitamin d2, 00:00: mouth [place] 1,250 mcg 00 weekly. Medical (50,000 Branch unit) capsule ergocalcife 2021-0 Yes [id number] Take 1 [facility] rol, 9-07 capsule by ity of vitamin d2, 00:00: mouth [place] 1,250 mcg 00 weekly. Medical (50,000 Branch unit) capsule ergocalcife 2021-0 Yes [id number] Take 1 [facility] rol, 9-07 capsule by ity of vitamin d2, 00:00: mouth [place] 1,250 mcg 00 weekly. Medical (50,000 Branch unit) capsule ergocalcife 2021-0 Yes [id number] Take 1 Univers rol, 9-07 capsule by ity of vitamin d2, 00:00: mouth [place] 1,250 mcg 00 weekly. Medical (50,000 Branch unit) capsule ergocalcife 2021-0 Yes [id number] Take 1 [facility], 9-07 capsule by ity of vitamin d2, 00:00: mouth [place] 1,250 mcg 00 weekly. Medical (50,000 Branch unit) capsule ergocalcife 2021-0 Yes [id number] Take 1 [facility] ro[facility], 9-07 capsule by ity of vitamin d2, 00:00: mouth [place] 1,250 mcg 00 weekly. Medical (50,000 Branch unit) capsule ergocalcife 2021-0 Yes [id number] Take 1 [facility] rol, 9-07 capsule by ity of vitamin d2, 00:00: mouth [place] 1,250 mcg 00 weekly. Medical (50,000 Branch unit) capsule ergocalcife 2021-0 Yes [id number] Take 1 [facility] rol, 9-07 capsule by ity of vitamin d2, 00:00: mouth [place] 1,250 mcg 00 weekly. Medical (50,000 Branch unit) capsule ergocalcife 2021-0 Yes [id number] Take 1 [facility] rol, 9-07 capsule by ity of vitamin d2, 00:00: mouth [place] 1,250 mcg 00 weekly. Medical (50,000 Branch unit) capsule ergocalcife 2021-0 Yes [id number] Take 1 [facility] rol, 9-07 capsule by ity of vitamin d2, 00:00: mouth [place] 1,250 mcg 00 weekly. Medical (50,000 Branch unit) capsule ergocalcife 2021-0 Yes [id number] Take 1 [facility] rol, 9-07 capsule by ity of vitamin d2, 00:00: mouth [place] 1,250 mcg 00 weekly. Medical (50,000 Branch unit) capsule ergocalcife 2020-0 Yes [id number] Take 1 [facility] rol, 03-30 capsule by ity of vitamin d2, 00:00: mouth [place] 1,250 mcg 00 weekly. Medical (50,000 Branch unit) capsule lisinopril 2020-0 Yes 40mg Take 40 mg U nivers 40 mg 03-24 by mouth ity of tablet 11:11: daily. [place] 05 [facility] Branch amLODIPine 2020-0 Yes 10mg Take 10 mg U nivers (NORVASC) - by mouth ity of 10 mg 11:11: daily. [place] tablet 05 Medical Branch lisinopril 2020-0 Yes 40mg Take 40 mg U nivers 40 mg -01 by mouth ity of tablet 11:11: daily. [place] [address] Medical Branch amLODIPine 2020-0 Yes 10mg Take 10 mg U nivers (NORVASC) - by mouth ity of 10 mg 11:11: daily. [place] tablet 05 Medical Branch amLODIPine 2020-0 Yes 10mg Take 10 mg U nivers (NORVASC) 9-01 by mouth ity of 10 mg 11:11: daily. [place] tablet 05 Medical Branch amLODIPine 2020-0 Yes 10mg Take 10 mg U nivers (NORVASC) 9-01 by mouth ity of 10 mg 11:11: daily. [place] tablet 05 Medical Branch amLODIPine 2020-0 Yes 10mg Take 10 mg U nivers (NORVASC) 9-01 by mouth ity of 10 mg 11:11: daily. [place] tablet 05 [facility] Branch amLODIPine 2020-0 Yes 10mg Take 10 mg U nivers (NORVASC) 9-01 by mouth ity of 10 mg 11:11: daily. [place] tablet 05 Medical Branch amLODIPine 2020-0 Yes 10mg Take 10 mg U nivers (NORVASC) 9-01 by mouth ity of 10 mg 11:11: daily. [place] tablet 05 Medical Branch amLODIPine 2020-0 Yes 10mg Take 10 mg U nivers (NORVASC) 9-01 by mouth ity of 10 mg 11:11: daily. [place] tablet 05 Medical Branch amLODIPine 2020-0 Yes [...] daily. [place] tablet 05 Medical Branch amLODIPine Yes 10mg Take 10 mg U nivers (NORVASC) 9-01 by mouth ity of 10 mg 11:11: daily. [place] tablet 05 [facility] amLODIPine 0 Yes 10mg Take 10 mg U nivers (NORVASC) 9-01 by mouth ity of 10 mg 11:11: daily. [place] tablet 05 [facility] amLODIPine 0 Yes 10mg Take 10 mg U nivers (NORVASC) 9-01 by mouth ity of 10 mg 11:11: daily. [place] tablet 05 [facility] amLODIPine 0 Yes 10mg Take 10 mg U nivers (NORVASC) 9-01 by mouth ity of 10 mg 11:11: daily. [place] tablet 05 [facility] amLODIPine 0 Yes 10mg Take 10 mg U nivers (NORVASC) 9-01 by mouth ity of 10 mg 11:11: daily. [place] tablet 05 [facility] amLODIPine Yes 10mg Take 10 mg U nivers (NORVASC) 9-01 by mouth ity of 10 mg 11:11: daily. [place] tablet 05 [facility] amLODIPine Yes 10mg Take 10 mg U nivers (NORVASC) 9-01 by mouth ity of 10 mg 11:11: daily. [place] tablet 05 [facility] amLODIPine Yes 10mg Take 10 mg U nivers (NORVASC) 9-01 by mouth ity of 10 mg 11:11: daily. [place] tablet 05 [facility] amLODIPine Yes 10mg Take 10 mg U nivers (NORVASC) 9-01 by mouth ity of 10 mg 11:11: daily. [place] tablet 05 [facility] amLODIPine 0 Yes 10mg Take 10 mg U nivers (NORVASC) 9-01 by mouth ity of 10 mg 11:11: daily. [facility] 05 [facility] aspirin 81 2020-0 Yes 81mg Take 81 mg U nivers mg chewable -01 by mouth ity of tablet 11:11: daily. [address] aspirin 81 2020-0 Yes 81mg Take 81 mg U nivers mg chewable -01 by mouth ity of tablet 11:11: daily. [address] aspirin 81 2020-0 Yes 81mg Take 81 mg U nivers mg chewable 9-01 by mouth ity of tablet 11:11: daily. [address] aspirin 81 2021-0 Yes 81mg Take 81 mg U nivers mg chewable 9-01 by mouth ity of tablet 11:11: daily. [address] aspirin 81 2021-0 Yes 81mg Take 81 mg U nivers mg chewable 9-01 by mouth ity of tablet 11:11: daily. [address] aspirin 81 202-0 Yes 81mg Take 81 mg U nivers mg chewable 9-01 by mouth ity of tablet 11:11: daily. [address] aspirin 81 202-0 Yes 81mg Take 81 mg U nivers mg chewable 9-01 by mouth ity of tablet 11:11: daily. [address] aspirin 81 2021-0 Yes 81mg Take 81 mg U nivers mg chewable 9-01 by mouth ity of tablet 11:11: daily. [address] aspirin 81 202-0 Yes 81mg Take 81 mg U nivers mg chewable 9-01 by mouth ity of tablet 11:11: daily. [address] aspirin 81 202-0 Yes 81mg Take 81 mg U nivers mg chewable 9-01 by mouth ity of tablet 11:11: daily. [address] aspirin 81 2021-0 Yes 81mg Take 81 mg U nivers mg chewable 9-01 by mouth ity of tablet 11:11: daily. [address] aspirin 81 2021-0 Yes 81mg Take 81 mg U nivers mg chewable 9-01 by mouth ity of tablet 11:11: daily. [address] aspirin 81 2021-0 Yes 81mg Take 81 mg U nivers mg chewable 9-01 by mouth ity of tablet 11:11: daily. [address] aspirin 81 2021-0 Yes 81mg Take 81 mg U nivers mg chewable 9-01 by mouth ity of tablet 11:11: daily. [address] aspirin 81 2021-0 Yes 81mg Take 81 mg U nivers mg chewable 9-01 by mouth ity of tablet 11:11: daily. [address] aspirin 81 2021-0 Yes 81mg Take 81 mg U nivers mg chewable 9-01 by mouth ity of tablet 11:11: daily. [address] aspirin 81 202-0 Yes 81mg Take 81 mg U nivers mg chewable 9-01 by mouth ity of tablet 11:11: daily. [address] Branch aspirin 81 2021-0 Yes 81mg Take 81 mg U nivers mg chewable 9-01 by mouth ity of tablet 11:11: daily. [address] aspirin 81 2021-0 Yes 81mg Take 81 mg U nivers mg chewable 9-01 by mouth ity of tablet 11:11: daily. [address] aspirin 81 2021-0 Yes 81mg Take 81 mg U nivers mg chewable 9-01 by mouth ity of tablet 11:11: daily. [address] aspirin 81 2021-0 Yes 81mg Take 81 mg U nivers mg chewable 9-01 by mouth ity of tablet 11:11: daily. [address] aspirin 81 2021-0 Yes 81mg Take 81 mg U nivers mg chewable 9-01 by mouth ity of tablet 11:11: daily. [address] aspirin 81 202-0 Yes 81mg Take 81 mg U nivers mg chewable 9-01 by mouth ity of tablet 11:11: daily. [address] aspirin 81 2021-0 Yes 81mg Take 81 mg U nivers mg chewable 9-01 by mouth ity of tablet 11:11: daily. [address] aspirin 81 2021-0 Yes 81mg Take 81 mg U nivers mg chewable 9-01 by mouth ity of tablet 11:11: daily. [address] aspirin 81 2021-0 Yes 81mg Take 81 mg U nivers mg chewable 9-01 by mouth ity of tablet 11:11: daily. [address] aspirin 81 2021-0 Yes 81mg Take 81 mg U nivers mg chewable 9-01 by mouth ity of tablet 11:11: daily. [address] aspirin 81 2021-0 Yes 81mg Take 81 mg U nivers mg chewable 9-01 by mouth ity of tablet 11:11: daily. [address] aspirin 81 2021-0 Yes 81mg Take 81 mg U nivers mg chewable 9-01 by mouth ity of tablet 11:11: daily. [address] aspirin 81 2021-0 Yes 81mg Take 81 mg U nivers mg chewable 9-01 by mouth ity of tablet 11:11: daily. [address] aspirin 81 2021-0 Yes 81mg Take 81 mg U nivers mg chewable 9-01 by mouth ity of tablet 11:11: daily. [address] aspirin 81 2021-0 Yes 81mg Take 81 mg U nivers mg chewable 9-01 by mouth ity of tablet 11:11: daily. [address] aspirin 81 202-0 Yes 81mg Take 81 mg U nivers mg chewable 9-01 by mouth ity of tablet 11:11: daily. [address] aspirin 81 202-0 Yes 81mg Take 81 mg U nivers mg chewable 9-01 by mouth ity of tablet 11:11: daily. [address] aspirin 81 202-0 Yes 81mg Take 81 mg U nivers mg chewable 9-01 by mouth ity of tablet 11:11: daily. [address] aspirin 81 202-0 Yes 81mg Take 81 mg U nivers mg chewable 9-01 by mouth ity of tablet 11:11: daily. [address] aspirin 81 202-0 Yes 81mg Take 81 mg U nivers mg chewable 9-01 by mouth ity of tablet 11:11: daily. [address] aspirin 81 2021-0 Yes 81mg Take 81 mg U nivers mg chewable 9-01 by mouth ity of tablet 11:11: daily. [address] aspirin 81 2021-0 Yes 81mg Take 81 mg U nivers mg chewable 9-01 by mouth ity of tablet 11:11: daily. [address] aspirin 81 202-0 Yes 81mg Take 81 mg U nivers mg chewable 9-01 by mouth ity of tablet 11:11: daily. [address] aspirin 81 2021-0 Yes 81mg Take 81 mg U nivers mg chewable 9-01 by mouth ity of tablet 11:11: daily. [address] aspirin 81 2021-0 Yes 81mg Take 81 mg U nivers mg chewable 9-01 by mouth ity of tablet 11:11: daily. [address] aspirin 81 2021-0 Yes 81mg Take 81 mg U nivers mg chewable 9-01 by mouth ity of tablet 11:11: daily. [address] aspirin 81 202-0 Yes 81mg Take 81 mg U nivers mg chewable 9-01 by mouth ity of tablet 11:11: daily. [address] aspirin 81 2021-0 Yes 81mg Take 81 mg U nivers mg chewable 9-01 by mouth ity of tablet 11:11: daily. [address] aspirin 81 202-0 Yes 81mg Take 81 mg U nivers mg chewable 9-01 by mouth ity of tablet 11:11: daily. [address] aspirin 81 202-0 Yes 81mg Take 81 mg U nivers mg chewable 9-01 by mouth ity of tablet 11:11: daily. [address] aspirin 81 2021-0 Yes 81mg Take 81 mg U nivers mg chewable 9-01 by mouth ity of tablet 11:11: daily. [address] aspirin 81 202-0 Yes 81mg Take 81 mg U nivers mg chewable 9-01 by mouth ity of tablet 11:11: daily. [address] aspirin 81 202-0 Yes 81mg Take 81 mg U nivers mg chewable 9-01 by mouth ity of tablet 11:11: daily. [address] aspirin 81 202-0 Yes 81mg Take 81 mg U nivers mg chewable 9-01 by mouth ity of tablet 11:11: daily. [address] aspirin 81 2021-0 Yes 81mg Take 81 mg U nivers mg chewable 9-01 by mouth ity of tablet 11:11: daily. [address] aspirin 81 202-0 Yes 81mg Take 81 mg U nivers mg chewable 9-01 by mouth ity of tablet 11:11: daily. [address] aspirin 81 202-0 Yes 81mg Take 81 mg U nivers mg chewable 9-01 by mouth ity of tablet 11:11: daily. [address] aspirin 81 2021-0 Yes 81mg Take 81 mg U nivers mg chewable 9-01 by mouth ity of tablet 11:11: daily. [address] Immunizations Ordered Filled Immunization Date Status Comments [facility] e Immunization Name Name SARS-COV-2 COVID-19 2022-05-20 Completed Unive rsity of VACCINE, BIVALENT 00:00:00 [facility]ie[facility] (MODERNA BOOSTER) Branch SARS-COV-2 COVID-19 2022-05-20 Completed Unive rsity of VACCINE, BIVALENT 00:00:00 [place] [facility] (MODERNA BOOSTER) Branch SARS-COV-2 COVID-19 2022-05-20 Completed Unive rsity of VACCINE, BIVALENT 00:00:00 [place] [facility] (MODERNA BOOSTER) Branch SARS-COV-2 COVID-19 2022-05-20 Completed Unive rsity of VACCINE, BIVALENT 00:00:00 [place] [facility] (MODERNA BOOSTER) Branch SARS-COV-2 COVID-19 2022-05-20 Completed Unive rsity of VACCINE, BIVALENT 00:00:00 [place] [facility] (MODERNA BOOSTER) Branch SARS-COV-2 COVID-19 2022-05-20 Completed Unive rsity of VACCINE, BIVALENT 00:00:00 [place] [facility] (MODERNA BOOSTER) Branch SARS-COV-2 COVID-19 2022-05-20 Completed Unive rsity of VACCINE, BIVALENT 00:00:00 [place] [facility] (MODERNA BOOSTER) Branch SARS-COV-2 COVID-19 2022-05-20 Completed Unive rsity of VACCINE, BIVALENT 00:00:00 [place] [facility] (MODERNA BOOSTER) Branch SARS-COV-2 COVID-19 2022-05-20 Completed Unive rsity of VACCINE, BIVALENT 00:00:00 [place] [facility] (MODERNA BOOSTER) Branch SARS-COV-2 COVID-19 2022-05-20 Completed Unive rsity of VACCINE, BIVALENT 00:00:00 [place] [facility] (MODERNA BOOSTER) Branch SARS-COV-2 COVID-19 2022-05-20 Completed Unive rsity of VACCINE, BIVALENT 00:00:00 [place] [facility] (MODERNA BOOSTER) Branch SARS-COV-2 COVID-19 2022-05-20 Completed Unive rsity of VACCINE, BIVALENT 00:00:00 [place] [facility] (MODERNA BOOSTER) Branch SARS-COV-2 COVID-19 2022-05-20 Completed Unive rsity of VACCINE, BIVALENT 00:00:00 [place] [facility] (MODERNA BOOSTER) Branch SARS-COV-2 COVID-19 2022-05-20 Completed Unive rsity of VACCINE, BIVALENT 00:00:00 [place] [facility] (MODERNA BOOSTER) Branch SARS-COV-2 COVID-19 2022-05-20 Completed Unive rsity of VACCINE, BIVALENT 00:00:00 [place] edical (MODERNA BOOSTER) Branch SARS-COV-2 COVID-19 2022-05-20 Completed Unive rsity of VACCINE, BIVALENT 00:00:00 [place] edical (MODERNA BOOSTER) Branch SARS-COV-2 COVID-19 2022-05-20 Completed Unive rsity of VACCINE, BIVALENT 00:00:00 [place] edical (MODERNA BOOSTER) Branch SARS-COV-2 COVID-19 2022-05-20 Completed Unive rsity of VACCINE, BIVALENT 00:00:00 [facility] edical (MODERNA BOOSTER) Branch SARS-COV-2 COVID-19 2022-05-20 Completed Unive rsity of VACCINE, BIVALENT 00:00:00 [place] edical (MODERNA BOOSTER) Branch SARS-COV-2 COVID-19 2022-05-20 Completed Unive rsity of VACCINE, BIVALENT 00:00:00 [facility] edical (MODERNA BOOSTER) Branch SARS-COV-2 COVID-19 2022-05-20 Completed Unive rsity of VACCINE, BIVALENT 00:00:00 [facility] edical (MODERNA BOOSTER) Branch SARS-COV-2 COVID-19 2022-05-20 Completed Unive rsity of VACCINE, BIVALENT 00:00:00 [place] edical (MODERNA BOOSTER) Branch SARS-COV-2 COVID-19 2022-05-20 Completed Unive rsity of VACCINE, BIVALENT 00:00:00 [place] edical (MODERNA BOOSTER) Branch SARS-COV-2 COVID-19 2022-05-20 Completed Unive rsity of VACCINE, BIVALENT 00:00:00 [facility] edical (MODERNA BOOSTER) Branch SARS-COV-2 COVID-19 2022-05-20 Completed Unive rsity of VACCINE, BIVALENT 00:00:00 [place] edical (MODERNA BOOSTER) Branch SARS-COV-2 COVID-19 2022-05-20 Completed Unive rsity of VACCINE, BIVALENT 00:00:00 [place] edical (MODERNA BOOSTER) Branch SARS-COV-2 COVID-19 2022-05-20 Completed Unive rsity of VACCINE, BIVALENT 00:00:00 [facility] edical (MODERNA BOOSTER) Branch SARS-COV-2 COVID-19 2022-05-20 Completed Unive rsity of VACCINE, BIVALENT 00:00:00 [facility] edical (MODERNA BOOSTER) Branch SARS-COV-2 COVID-19 2022-05-20 Completed Unive rsity of VACCINE, BIVALENT 00:00:00 [facility] edical (MODERNA BOOSTER) Branch SARS-COV-2 COVID-19 2022-05-20 Completed Unive rsity of VACCINE, BIVALENT 00:00:00 [facility] edical (MODERNA BOOSTER) Branch SARS-COV-2 COVID-19 2022-05-20 Completed Unive rsity of VACCINE, BIVALENT 00:00:00 [facility] edical (MODERNA BOOSTER) Branch SARS-COV-2 COVID-19 2022-05-20 Completed Unive rsity of VACCINE, BIVALENT 00:00:00 [facility] edical (MODERNA BOOSTER) Branch Influenza Virus 2022-05-19 Completed Universit y of Vaccine Quad IM, 00:00:00 [place] [facility] Preserv and ABX Branch Free 6 MO-64 YRS Influenza Virus 2022-05-19 Completed Universit y of Vaccine Quad IM, 00:00:00 [place] [facility] Preserv and ABX Branch Free 6 MO-64 YRS Influenza Virus 2022-05-19 Completed Universit y of Vaccine Quad IM, 00:00:00 [place] [facility] Preserv and ABX Branch Free 6 MO-64 YRS Influenza Virus 2022-05-19 Completed Universit y of Vaccine [facility] IM, 00:00:00 [place] [facility] Preserv and ABX Branch Free 6 MO-64 YRS Influenza Virus 2022-05-19 Completed Universit y of Vaccine [facility] IM, 00:00:00 [place] [facility] Preserv and ABX Branch Free 6 MO-64 YRS Influenza Virus 2022-05-19 Completed Universit y of Vaccine [facility] IM, 00:00:00 [place] [facility] Preserv and ABX Branch Free 6 MO-64 YRS Influenza Virus 2022-05-19 Completed Universit y of Vaccine [facility] IM, 00:00:00 [place] [facility] Preserv and ABX Branch Free 6 MO-64 YRS Influenza Virus 2022-05-19 Completed Universit y of Vaccine [facility] IM, 00:00:00 [place] [facility] Preserv and ABX Branch Free 6 MO-64 YRS Influenza Virus 2022-05-19 Completed Universit y of Vaccine [facility] IM, 00:00:00 [place] [facility] Preserv and ABX Branch Free 6 MO-64 YRS Influenza Virus 2022-05-19 Completed Universit y of Vaccine [facility] IM, 00:00:00 [place] [facility] Preserv and ABX Branch Free 6 MO-64 YRS Influenza Virus 2022-05-19 Completed Universit y of Vaccine [facility] IM, 00:00:00 [place] [facility] Preserv and ABX Branch Free 6 MO-64 YRS Influenza Virus 2022-05-19 Completed Universit y of Vaccine [facility] IM, 00:00:00 [place] [facility] Preserv and ABX Branch Free 6 MO-64 YRS Influenza Virus 2022-05-19 Completed Universit y of Vaccine [facility] IM, 00:00:00 [place] [facility] Preserv and ABX Branch Free 6 MO-64 YRS Influenza Virus 2022-05-19 Completed Universit y of Vaccine [facility] IM, 00:00:00 [place] [facility] Preserv and ABX Branch Free 6 MO-64 YRS Influenza Virus 2022-05-19 Completed Universit y of Vaccine [facility] IM, 00:00:00 [place] [facility] Preserv and ABX Branch Free 6 MO-64 YRS Influenza Virus 2022-05-19 Completed Universit y of Vaccine [facility] IM, 00:00:00 [place] [facility] Preserv and ABX Branch Free 6 MO-64 YRS Influenza Virus 2022-05-19 Completed Universit y of Vaccine [facility] IM, 00:00:00 [place] [facility] Preserv and ABX Branch Free 6 MO-64 YRS Influenza Virus 2022-05-19 Completed Universit y of Vaccine [facility] IM, 00:00:00 [place] [facility] Preserv and ABX Branch Free 6 MO-64 YRS Influenza Virus 2022-05-19 Completed Universit y of Vaccine [facility] IM, 00:00:00 [place] [facility] Preserv and ABX Branch Free 6 MO-64 YRS Influenza Virus 2022-05-19 Completed Universit y of Vaccine [facility] IM, 00:00:00 [place] [facility] Preserv and ABX Branch Free 6 MO-64 YRS Influenza Virus 2022-05-19 Completed Universit y of Vaccine [facility] IM, 00:00:00 [place] [facility] Preserv and ABX Branch Free 6 MO-64 YRS Influenza Virus 2022-05-19 Completed Universit y of Vaccine [facility] IM, 00:00:00 [place] [facility] Preserv and ABX Branch Free 6 MO-64 YRS Influenza Virus 2022-05-19 Completed Universit y of Vaccine [facility] IM, 00:00:00 [place] [facility] Preserv and ABX Branch Free 6 MO-64 YRS Influenza Virus 2022-05-19 Completed Universit y of Vaccine Quad IM, 00:00:00 [place] [facility] Preserv and ABX Branch Free 6 MO-64 YRS Influenza Virus 2022-05-19 Completed Universit y of Vaccine [facility] IM, 00:00:00 [place] [facility] Preserv and ABX Branch Free 6 MO-64 YRS Influenza Virus 2022-05-19 Completed Universit y of Vaccine Quad IM, 00:00:00 [place] [facility] Preserv and ABX Branch Free 6 MO-64 YRS Influenza Virus 2022-05-19 Completed Universit y of Vaccine Quad IM, 00:00:00 [place] [facility] Preserv and ABX Branch Free 6 MO-64 YRS Influenza Virus 2022-05-19 Completed Universit y of Vaccine Quad IM, 00:00:00 [place] [facility] Preserv and ABX Branch Free 6 MO-64 YRS Influenza Virus 2022-05-19 Completed Universit y of Vaccine Quad IM, 00:00:00 [place] [facility] Preserv and ABX Branch Free 6 MO-64 YRS Influenza Virus 2022-05-19 Completed Universit y of Vaccine Quad IM, 00:00:00 [place] [facility] Preserv and ABX Branch Free 6 MO-64 YRS Influenza Virus 2022-05-19 Completed Universit y of Vaccine Quad IM, 00:00:00 [place] [facility] Preserv and ABX Branch Free 6 MO-64 YRS Influenza Virus 2022-05-19 Completed Universit y of Vaccine Quad IM, 00:00:00 [place] [facility] Preserv and ABX Branch Free 6 MO-64 YRS Influenza Virus 2022-05-19 Completed Universit y of Vaccine [facility] IM, 00:00:00 [place] [facility] Preserv and ABX Branch Free 6 MO-64 YRS Influenza Virus 2022-05-19 Completed Universit y of Vaccine Quad IM, 00:00:00 [place] [facility] Preserv and ABX Branch Free 6 MO-64 YRS Influenza Virus 2022-05-19 Completed Universit y of Vaccine Quad IM, 00:00:00 [place] [facility] Preserv and ABX Branch Free 6 MO-64 YRS Influenza Virus 2022-05-19 Completed Universit y of Vaccine Quad IM, 00:00:00 [place] [facility] Preserv and ABX Branch Free 6 MO-64 YRS Influenza Virus 2022-05-19 Completed Universit y of Vaccine [facility] IM, 00:00:00 [place] [facility] Preserv and ABX Branch Free 6 MO-64 YRS Influenza Virus 2022-05-19 Completed Universit y of Vaccine Quad IM, 00:00:00 [place] [facility] Preserv and ABX Branch Free 6 MO-64 YRS Influenza Virus 2022-05-19 Completed Universit y of Vaccine [facility] IM, 00:00:00 [place] [facility] Preserv and ABX Branch Free 6 MO-64 YRS Influenza Virus 2022-05-19 Completed Universit y of Vaccine Quad IM, 00:00:00 [place] [facility] Preserv and ABX Branch Free 6 MO-64 YRS Influenza Virus 2022-05-19 Completed Universit y of Vaccine Quad IM, 00:00:00 [place] [facility] Preserv and ABX Branch Free 6 MO-64 YRS Influenza Virus 2022-05-19 Completed Universit y of Vaccine Quad IM, 00:00:00 [place] [facility] Preserv and ABX Branch Free 6 MO-64 YRS SARS-COV-2 COVID-19 2020-09-15 Completed Unive rsity of VACCINE - (MODERNA) 00:00:00 [facility] SARS-COV-2 COVID-19 2020-09-15 Completed Unive rsity of VACCINE - (MODERNA) 00:00:00 [facility] SARS-COV-2 COVID-19 2020-09-15 Completed Unive rsity of VACCINE - (MODERNA) 00:00:00 [facility] SARS-COV-2 COVID-19 2020-09-15 Completed Unive rsity of VACCINE - (MODERNA) 00:00:00 [facility] SARS-COV-2 COVID-19 2020-09-15 Completed Unive rsity of VACCINE - (MODERNA) 00:00:00 [facility] SARS-COV-2 COVID-19 2020-09-15 Completed Unive rsity of VACCINE - (MODERNA) 00:00:00 [facility] SARS-COV-2 COVID-19 2020-09-15 Completed Unive rsity of VACCINE - (MODERNA) 00:00:00 [facility] SARS-COV-2 COVID-19 2020-09-15 Completed Unive rsity of VACCINE - (MODERNA) 00:00:00 [facility] SARS-COV-2 COVID-19 2020-09-15 Completed Unive rsity of VACCINE - (MODERNA) 00:00:00 [facility] SARS-COV-2 COVID-19 2020-09-15 Completed Unive rsity of VACCINE - (MODERNA) 00:00:00 [facility] SARS-COV-2 COVID-19 2020-09-15 Completed Unive rsity of VACCINE - (MODERNA) 00:00:00 [facility] SARS-COV-2 COVID-19 2020-09-15 Completed Unive rsity of VACCINE - (MODERNA) 00:00:00 [facility] SARS-COV-2 COVID-19 2020-09-15 Completed Unive rsity of VACCINE - (MODERNA) 00:00:00 [facility] SARS-COV-2 COVID-19 2020-09-15 Completed Unive rsity of VACCINE - (MODERNA) 00:00:00 [facility] SARS-COV-2 COVID-19 2020-09-15 Completed Unive rsity of VACCINE - (MODERNA) 00:00:00 [facility] SARS-COV-2 COVID-19 2020-09-15 Completed Unive rsity of VACCINE - (MODERNA) 00:00:00 [facility] SARS-COV-2 COVID-19 2020-09-15 Completed Unive rsity of VACCINE - (MODERNA) 00:00:00 [facility] SARS-COV-2 COVID-19 2020-09-15 Completed Unive rsity of VACCINE - (MODERNA) 00:00:00 [facility] SARS-COV-2 COVID-19 2020-09-15 Completed Unive rsity of VACCINE - (MODERNA) 00:00:00 [facility] SARS-COV-2 COVID-19 2020-09-15 Completed Unive rsity of VACCINE - (MODERNA) 00:00:00 [facility] SARS-COV-2 COVID-19 2020-09-15 Completed Unive rsity of VACCINE - (MODERNA) 00:00:00 [facility] SARS-COV-2 COVID-19 2020-09-15 Completed Unive rsity of VACCINE - (MODERNA) 00:00:00 [facility] SARS-COV-2 COVID-19 2020-09-15 Completed Unive rsity of VACCINE - (MODERNA) 00:00:00 [facility] SARS-COV-2 COVID-19 2020-09-15 Completed Unive rsity of VACCINE - (MODERNA) 00:00:00 [facility] SARS-COV-2 COVID-19 2020-09-15 Completed Unive rsity of VACCINE - (MODERNA) 00:00:00 [facility] SARS-COV-2 COVID-19 2020-09-15 Completed Unive rsity of VACCINE - (MODERNA) 00:00:00 [facility] SARS-COV-2 COVID-19 2020-09-15 Completed Unive rsity of VACCINE - (MODERNA) 00:00:00 [facility] SARS-COV-2 COVID-19 2020-09-15 Completed Unive rsity of VACCINE - (MODERNA) 00:00:00 [facility] SARS-COV-2 COVID-19 2020-09-15 Completed Unive rsity of VACCINE - (MODERNA) 00:00:00 [facility] SARS-COV-2 COVID-19 2020-09-15 Completed Unive rsity of VACCINE - (MODERNA) 00:00:00 [facility] SARS-COV-2 COVID-19 2020-09-15 Completed Unive rsity of VACCINE - (MODERNA) 00:00:00 [facility] SARS-COV-2 COVID-19 2020-09-15 Completed Unive rsity of VACCINE - (MODERNA) 00:00:00 [facility] SARS-COV-2 COVID-19 2020-08-21 Completed Unive rsity of VACCINE - (MODERNA) 00:00:00 [facility] SARS-COV-2 COVID-19 2020-08-21 Completed Unive rsity of VACCINE - (MODERNA) 00:00:00 [facility] SARS-COV-2 COVID-19 2020-08-21 Completed Unive rsity of VACCINE - (MODERNA) 00:00:00 [facility] SARS-COV-2 COVID-19 2020-08-21 Completed Unive rsity of VACCINE - (MODERNA) 00:00:00 [facility] SARS-COV-2 COVID-19 2020-08-21 Completed Unive rsity of VACCINE - (MODERNA) 00:00:00 [facility] SARS-COV-2 COVID-19 2020-08-21 Completed Unive rsity of VACCINE - (MODERNA) 00:00:00 [facility] SARS-COV-2 COVID-19 2020-08-21 Completed Unive rsity of VACCINE - (MODERNA) 00:00:00 [facility] SARS-COV-2 COVID-19 2020-08-21 Completed Unive rsity of VACCINE - (MODERNA) 00:00:00 [facility] SARS-COV-2 COVID-19 2020-08-21 Completed Unive rsity of VACCINE - (MODERNA) 00:00:00 [facility] SARS-COV-2 COVID-19 2020-08-21 Completed Unive rsity of VACCINE - (MODERNA) 00:00:00 [facility] SARS-COV-2 COVID-19 2020-08-21 Completed Unive rsity of VACCINE - (MODERNA) 00:00:00 [facility] SARS-COV-2 COVID-19 2020-08-21 Completed Unive rsity of VACCINE - (MODERNA) 00:00:00 [facility] SARS-COV-2 COVID-19 2020-08-21 Completed Unive rsity of VACCINE - (MODERNA) 00:00:00 [facility] SARS-COV-2 COVID-19 2020-08-21 Completed Unive rsity of VACCINE - (MODERNA) 00:00:00 [facility] SARS-COV-2 COVID-19 2020-08-21 Completed Unive rsity of VACCINE - (MODERNA) 00:00:00 [facility] SARS-COV-2 COVID-19 2020-08-21 Completed Unive rsity of VACCINE - (MODERNA) 00:00:00 [facility] SARS-COV-2 COVID-19 2020-08-21 Completed Unive rsity of VACCINE - (MODERNA) 00:00:00 [facility] SARS-COV-2 COVID-19 2020-08-21 Completed Unive rsity of VACCINE - (MODERNA) 00:00:00 [facility] SARS-COV-2 COVID-19 2020-08-21 Completed Unive rsity of VACCINE - (MODERNA) 00:00:00 [facility] SARS-COV-2 COVID-19 2020-08-21 Completed Unive rsity of VACCINE - (MODERNA) 00:00:00 [facility] SARS-COV-2 COVID-19 2020-08-21 Completed Unive rsity of VACCINE - (MODERNA) 00:00:00 [facility] SARS-COV-2 COVID-19 2020-08-21 Completed Unive rsity of VACCINE - (MODERNA) 00:00:00 [facility] SARS-COV-2 COVID-19 2020-08-21 Completed Unive rsity of VACCINE - (MODERNA) 00:00:00 [facility] SARS-COV-2 COVID-19 2020-08-21 Completed Unive rsity of VACCINE - (MODERNA) 00:00:00 [facility] SARS-COV-2 COVID-19 2020-08-21 Completed Unive rsity of VACCINE - (MODERNA) 00:00:00 [facility] SARS-COV-2 COVID-19 2020-08-21 Completed Unive rsity of VACCINE - (MODERNA) 00:00:00 [facility] SARS-COV-2 COVID-19 2020-08-21 Completed Unive rsity of VACCINE - (MODERNA) 00:00:00 [facility] SARS-COV-2 COVID-19 2020-08-21 Completed Unive rsity of VACCINE - (MODERNA) 00:00:00 [facility] SARS-COV-2 COVID-19 2020-08-21 Completed Unive rsity of VACCINE - (MODERNA) 00:00:00 [facility] SARS-COV-2 COVID-19 2020-08-21 Completed Unive rsity of VACCINE - (MODERNA) 00:00:00 [facility] SARS-COV-2 COVID-19 2020-08-21 Completed Unive rsity of VACCINE - (MODERNA) 00:00:00 [facility] SARS-COV-2 COVID-19 2020-08-21 Completed Unive rsity of VACCINE - (MODERNA) 00:00:00 [facility] Vital Signs Vital Name Observation Time Observation Value Comments Source Systolic blood 2022-10-19 14:28:00 184 mm[Hg] Univer sity of pressure [facility] Diastolic blood 2022-10-19 14:28:00 65 mm[Hg] Unive rsity of pressure [facility] Heart rate 2022-10-19 14:20:00 74 /min Universi ty of [facility] Body temperature 2022-10-19 14:20:00 36.44 Nehal Univ ersity of [facility] Respiratory rate 2022-10-19 14:20:00 18 /min Univ ersity of [facility] Body height 2022-10-19 14:20:00 170.2 cm Universi ty of [facility] Body weight 2022-10-19 14:20:00 68.221 kg Universi ty of [facility] BMI 2022-10-19 14:20:00 23.56 kg/m2 Universi ty of [facility] Oxygen saturation in 2022-10-19 14:20:00 99 /min University of Arterial blood by [facility] Pulse oximetry Branch Systolic blood 2022-10-18 14:54:00 139 mm[Hg] Univer sity of pressure [facility] Diastolic blood 2022-10-18 14:54:00 78 mm[Hg] Unive rsity of pressure [facility] Heart rate 2022-10-18 14:54:00 63 /min Universi ty of [facility] Oxygen saturation in 2022-10-18 14:54:00 99 /min University of Arterial blood by [facility] Pulse oximetry Branch Body temperature 2022-10-18 14:53:00 36.39 Nehal Univ ersity of [facility] Body height 2022-10-18 14:53:00 170.2 cm Universi ty of [facility] Body weight 2022-10-18 14:53:00 67.767 kg [facility]i ty of [facility] BMI 2022-10-18 14:53:00 23.40 kg/m2 [facility] Systolic blood 2022-07-21 14:34:00 168 mm[Hg] Univer sity of pressure [facility] Diastolic blood 2022-07-21 14:34:00 77 mm[Hg] Unive rsity of pressure [facility] Heart rate 2022-07-21 14:28:00 59 /min Universi ty of [facility] Body height 2022-07-21 14:28:00 170.2 cm [facility]i ty of [facility] Body weight 2022-07-21 14:28:00 68.765 kg [facility]i ty of [facility] BMI 2022-07-21 14:28:00 23.74 kg/m2 [facility] ty of [facility] Oxygen saturation in 2022-07-21 14:28:00 99 /min University of Arterial blood by [place] [employer] Pulse oximetry Branch Systolic blood 2022-05-19 17:18:00 150 mm[Hg] Univer sity of pressure [facility] Diastolic blood 2022-05-19 17:18:00 69 mm[Hg] Unive rsity of pressure [facility] Heart rate 2022-05-19 17:17:00 58 /min Universi ty of [facility] Body temperature 2022-05-19 17:17:00 37.11 Nehal Univ ersity of [facility] Body height 2022-05-19 17:17:00 170.2 cm Universi ty of [facility] Body weight 2022-05-19 17:17:00 68.04 kg [facility] BMI 2022-05-19 17:17:00 23.49 kg/m2 [facility] Oxygen saturation in 2022-05-19 17:17:00 98 /min University of Arterial blood by [place] [employer] [facility] Pulse oximetry Branch Procedures Procedure Date / Time Performing Clinician Source Performed PHYSICIAN ORDERS 2022-09-09 06:01:00 Doctor Unassigned, [facility] [place] [facility] INSURANCE CORRESPONDENCE 2022-08-26 06:01:00 Doctor Cristoferigned, [facility] [place] [facility] EXTERNAL PROVIDER RECORDS 2022-07-29 06:01:00 Doctor Roxanessigned, [facility] [place] [facility] REFERRAL- 2022-07-15 06:01:00 Doctor Indio, [facility] REQUEST/RESPONSE [place] [facility] URINALYSIS 2022-06-21 14:01:00 Susy Hernandez [facility] PHYSICIAN ORDERS 2022-06-21 06:01:00 Doctor Indio, [facility] Name [facility] FLU VACC ([id number]), 6 2022-05-19 17:26:04 Kayode Pereira [facility] MO-64 YRS, .5ML, IM, QUAD Medica l Branch (FLUCELVAX) INSURANCE CORRESPONDENCE 2022-05-03 05:01:00 Doctor Indio, [facility] Name [facility] CBC WITH DIFF 2022-03-29 14:10:00 Susy Hernandez [facility] PHYSICIAN ORDERS 2022-03-29 05:01:00 Doctor Indio [facility] Injection procedure for 2017-05-18 18:26:00 Hussein Holden shoulder arthrography or enhanced CT/MRI shoulder arthrography Encounters Start End Encounter Admission Attending Care Care Encounter Source Date/Time Date/Time Type Type Clinicians Facility Department ID 2021-05-24 Emergency [facility] [id number] Univers 21:54:56 [facility] 2021-05-24 Emergency [facility] [id number] Univers 17:13:06 [facility] 2021-05-23 Outpatient Leida TRAN [facility] PATRICK [id number] Univers 07:16:18 CHAPARRO [facility] 2022-12-15 2022-12-15 [facility] 1.2.840.114 [id number] Univers 00:00:00 00:00:00 [facility] 350.1.13.10 it y of [place] 4.2.7.2.686 Madhu as KENN?BLEA [id number] [address] MEDICAL OFFICE BUILDING 2022-12-15 2022-12-15 [facility]phone [facility] [id number] Univers 00:00:00 00:00:00 [facility] 350.1.13.10 it y of [place] 4.2.7.2.686 Madhu as KENN?BLEA [phone] [address] MEDICAL OFFICE BUILDING 2022-12-14 2022-12-14 [facility] 1.2.840.114 [id number] Univers 00:00:00 00:00:00 [facility] 350.1.13.10 it y [facility] 4.2.7.2.686 Madhu as KENN?BLEA [id number] Wy hema RYAN[address] OFFICE [facility] 2022-12-12 2022-12-12 Nail Machine Operator Nathanael, Ahsan Lab Main [facility] 1.2.8 40.114 [id number] Univers 09:15:00 09:30:00 Visit Ja Sparks HE[place] 350.1.13.10 ity of [place].2.[place] [id number] Wy hema [address] 2022-12-12 2022-12-12 Outpatient R CLARE [facility] [id number] Univers 09:15:00 09:15:00 JA ity [facility] 2022-11-12 2022-11-12 [facility] 1.2.840.114 [id number] Univers 00:00:00 00:00:00 [place] [facility] 350.1.13.10 it y of [place] 4.2.7.2.686 Madhu as KENN?BLEA [id number] Wy hema [address] 2022-11-07 2022-11-07 [facility] 1.2.840.114 [id number] Univers 00:00:00 00:00:00 Kay[facility] HEALTH 350.1.13.10 it y of [place] 4.2.7.2.686 Madhu as KENN?BLEA [phone] Wy dicedi TORRES [address] [place] [address] 2022-10-19 2022-10-19 Outpatient R ADAN [facility] [id number] Univers 09:30:00 10:07:04 , KRISTEN it y of [facility] 2022-10-19 2022-10-19 Office [facility] 1.2.840.114 [id number] Univers 09:30:00 10:07:04 Visit , Kristen [facility] 350.1.13.10 ity of [place] 4.2.7.2.686 Madhu as KENN?BLEA [id number] [address] OFFICE [facility] 2022-10-18 2022-10-18 Outpatient R MICHAEL [facility] [id number] Univers 10:00:00 10:10:20 KAYODE ity of [facility] 2022-10-18 2022-10-18 Office [facility] 1.2.840.114 [id number] Univers 10:00:00 10:10:20 Visit [facility] 350.1.13.10 it y of [place] 4.2.7.2.686 Madhu as KENN?BLEA [id number] [address] OFFICE [facility] 2022-10-16 2022-10-16 [facility] 1.2.840.114 [id number] Univers 00:00:00 00:00:00 [facility] HEALTH 350.1.13.10 it y of [place] 4.2.7.2.686 Madhu as KENN?BLEA [id number] [address] OFFICE [facility] 2022-10-14 2022-10-14 [facility] 1.2.840.114 [id number] Univers 00:00:00 00:00:00 [place] HEALTH 350.1.13.10 it y of [place] 4.2.7.2.686 Madhu as KENN?BLEA [id number] [address] OFFICE [facility] 2022-09-16 2022-09-16 Telephone [facility] 1.2.737.725 [id number] Univers 00:00:00 00:00:00 [facility] HEALTH 350.1.13.10 it y of [place] 4.2.7.2.686 Madhu as KENN?BLEA [id number] [address] OFFICE [facility] 2022-09-14 2022-09-14 Telephone [facility] 1.2.359.381 [id number] Univers 00:00:00 00:00:00 Kay[facility] HEALTH 350.1.13.10 it y of [place] 4.2.7.2.686 Mdahu as KENN?BLEA [id number] Wy dicedi TORRES 044 [facility] 2022-09-09 2022-09-09 Nail Machine Operator Ahsan Huffman Lab Main [facility] 1.2.8 40.114 [id number] Univers 09:45:00 10:00:00 Visit Ja Sparks 350.1.13.10 ity of [place] [id number] Wy hema [facility] 353 [facility] 2022-09-09 2022-09-09 Outpatient R CLARE [facility] [id number] Univers 09:45:00 09:45:00 JA itlorenzo [facility] 2022-09-09 2022-09-09 Orders Doctor VIOLETTA 1.2.840.114 [id number] Univers 00:00:00 00:00:00 Only Unassigned, SATHISH 350.1.13.10 ity of [place] [facility] 4.2.7.2.686 Madhu as [phone] [address] 2022-08-26 2022-08-26 Orders Doctor VIOLETTA 1.2.840.114 [id number] Univers 00:00:00 00:00:00 Only Unassigned, SATHISH 350.1.13.10 ity of [place] [facility] 4.2.7.2.686 Madhu as [id number] [address] 2022-08-22 2022-08-22 Telephone [facility] 1.2.592.912 [id number] Univers 00:00:00 00:00:00 [facility] HEALTH 350.1.13.10 it y of [place] 4.2.7.2.686 Madhu as KENN?BLEA [id number] Wy dicedi TORRES [address] [place] [address] 2022-08-19 2022-08-19 Telephone [facility] 1.2.181.437 [id number] Univers 00:00:00 00:00:00 [facility] 350.1.13.10 it y of [place] 4.2.7.2.686 Madhu as KENN?BLEA [id number] Wy dicedi RYAN[address] 2022-08-19 2022-08-19 Telephone [facility] 1.2.585.861 [id number] Univers 00:00:00 00:00:00 [facility] 350.1.13.10 it y [facility] 4.2.7.2.686 Madhu as KENN?BLEA [phone] [facility] 0[address] [facility] OFFICE [facility] 2022-08-17 2022-08-17 Telephone [facility] 1.2.645.098 [id number] Univers 00:00:00 00:00:00 [facility] HEALTH 350.1.13.10 it y of [facility] 4.2.7.2.686 Madhu as KENN?BLEA [id number] [address] 2022-08-15 2022-08-15 Referick [facility] 1.2.840.114 [id number] Univers 00:00:00 00:00:00 [facility] 350.1.13.10 it y of [place] 4.2.7.2.686 Madhu as KENN?BLEA [id number] [address] 2022-07-29 2022-07-29 Nail Machine Operator Nathanael, Adc Lab Main [facility] 1.2.8 40.114 [id number] Univers 12:15:00 12:30:00 Visit Ja Sparks 350.1.13.10 it[facility] [place] [id number] [address] 2022-07-29 2022-07-29 Outpatient R CLARE [facility] [id number] Univers 12:15:00 12:15:00 JA ity of [facility] 2022-07-29 2022-07-29 Orders Doctor VIOLETTA 1.2.840.114 [id number] Univers 00:00:00 00:00:00 Only Unassigned, SATHISH 350.1.13.10 ity of [place] [facility] 4.2.7.2.686 Madhu as [phone] [address] 2022-07-22 2022-07-22 Referick [facility] 1.2.840.114 [id number] Univers 00:00:00 00:00:00 [facility] 350.1.13.10 it y of [place] 4.2.7.2.686 Madhu as KENN?BLEA [id number] [address] OFFICE [facility] 2022-07-21 2022-07-21 Office [facility] 1.2.840.114 [id number] Univers 08:45:00 09:00:00 Visit [facility] 350.1.13.10 it y of [place] 4.2.7.2.686 Madhu as KENN?BLEA [phone] [address] MEDICAL OFFICE [facility] 2022-07-21 2022-07-21 [facility] [id number] Univers 08:45:00 08:45:00 KAYODE ity [facility] 2022-07-19 2022-07-19 [facility]ill [facility] 1.2.840.114 [id number] Univers 00:00:00 00:00:00 [facility] 350.1.13.10 it y of [place] 4.2.7.2.686 Madhu as KENN?BLEA [id number] [address] OFFICE [facility] 2022-07-15 2022-07-15 Orders Doctor VIOLETTA 1.2.840.114 [id number] Univers 00:00:00 00:00:00 Only Unassigned, SATHISH 350.1.13.10 ity of [place] [facility] 4.2.7.2.686 Madhu as [phone] [address] 2022-07-11 2022-07-11 Telephone [facility] 1.2.980.179 [id number] Univers 00:00:00 00:00:00 [facility] 350.1.13.10 it y of [place] 4.2.7.2.686 Madhu as KENN?BLEA [phone] [address] MEDICAL OFFICE [facility] 2022-07-11 2022-07-11 Telephone [facility] 1.2.156.829 [id number] Univers 00:00:00 00:00:00 [facility] HEALTH 350.1.13.10 it y of [place] 4.2.7.2.686 Madhu as KENN?BLEA [id number] Wy dicedi TORRES 044 [facility] OFFICE [facility] 2022-07-11 2022-07-11 Telephone Michael [facility] 1.2.606.557 [id number] Univers 00:00:00 00:00:00 [facility] HEALTH 350.1.13.10 it y [facility] 4.2.7.2.686 Madhu as KENN?BLEA [phone] Wy dicedi [facility] 044 [facility] OFFICE [facility] 2022-06-21 2022-06-21 Nail Machine Operator Nathanael, Adc Lab Main [facility] 1.2.8 40.114 [id number] Univers 07:45:00 08:00:00 Visit Susy Hernandez [place] 350.1.13. 10 ity of [place] [id number] Wy hema [facility] 353 [facility] 2022-06-21 2022-06-21 Outpatient R JENNIFER [facility] [id number] Univers 07:45:00 07:45:00 SUSY gaytany o f [facility] 2022-06-21 2022-06-21 Orders Doctor VIOLETTA 1.2.840.114 [id number] Univers 00:00:00 00:00:00 Only Unassigned, SATHISH 350.1.13.10 ity of [place] [facility] 4.2.7.2.686 Madhu as [id number] [address] 2022-06-14 2022-06-14 [facility] 1.2.840.114 [id number] Univers 00:00:00 00:00:00 [facility] 350.1.13.10 it y of [place] 4.2.7.2.686 Madhu as KENN?BLEA [id number] Wy dicedi RYAN[address] 2022-05-19 2022-05-19 Outpatient R MICHAEL [facility] [id number] Univers 12:15:00 12:32:01 KAYODE itlorenzo [facility] 2022-05-19 2022-05-19 Office Michael [facility] 1.2.840.114 [id number] Univers 12:15:00 12:32:01 Visit [facility] 350.1.13.10 it y of [place] 4.2.7.2.686 Madhu as KENN?BLEA [id number] [address] OFFICE [facility] 2022-05-19 2022-05-19 Letter [facility] 1.2.840.114 [id number] Univers 00:00:00 00:00:00 (Out) [facility] HEALTH 350.1.13.10 it y of [place] 4.2.7.2.686 Madhu as KENN?BLEA [id number] [address] OFFICE [facility] 2022-05-19 2022-05-19 Telephone [facility] [id number] [id number] Univers 00:00:00 00:00:00 [facility] 350.1.13.10 it y of [place] 4.2.7.2.686 Madhu as KENN?BLEA [id number] [address] 2022-05-11 2022-05-11 Refill [facility] 1.2.840.114 [id number] Univers 00:00:00 00:00:00 [facility] 350.1.13.10 it y of [place] 4.2.7.2.686 Madhu as KENN?BLEA [id number] [address] OFFICE [facility] 2022-05-03 2022-05-03 Orders Doctor VIOLETTA 1.2.840.114 [id number] Univers 00:00:00 00:00:00 Only Unassigned, SATHISH 350.1.13.10 ity of [place] [facility] 4.2.7.2.686 Madhu as [id number] [address] 2022-04-20 2022-04-20 Referick [facility] 1.2.840.114 [id number] Univers 00:00:00 00:00:00 [facility] 350.1.13.10 it y of [place] 4.2.7.2.686 Madhu as KENN?BLEA [id number] [address] OFFICE [facility] 2022-04-15 2022-04-15 Nail Machine Operator Pob, Adc Lab Main [facility] 1.2.8 40.114 [id number] Univers 12:45:00 13:00:00 Visit Susy Hernandez [place] 350.1.13. 10 ity [facility] [place] [id number] [address] 2022-04-15 2022-04-15 Outpatient [facility] [id number] Univers 12:45:00 12:45:00 [facility] seble [facility] 2022-04-14 2022-04-14 [facility]ill [facility] 1.2.840.114 [id number] Univers 00:00:00 00:00:00 [facility] HEALTH 350.1.13.10 it y [facility] 4.2.7.2.686 Madhu as KENN?BLEA [phone] [address] 2022-03-29 2022-03-29 Nail Machine Operator Nathanael, [facility] Lab Main [facility] 1.2.8 40.114 [id number] Univers 08:30:00 08:45:00 Visit Susy Hernandez BIGLER 350.1.13. 10 [facility] 4.2.7.2.686 [place] [phone] [address] 2022-03-29 2022-03-29 Outpatient R [facility] [id number] Univers 08:30:00 08:30:00 MARCIANOTALIBED ity o seble [facility] 2022-03-29 2022-03-29 Telephone [facility] [id number] Univers 00:00:00 00:00:00 Kayode HEALTH 350.1.13.10 it y of [place] 4.2.7.2.686 Madhu as KENN?BLEA [phone] [address] OFFICE [facility] 2022-03-29 2022-03-29 Orders Doctor SHIPLEY 1.2.840.114 [id number] Univers 00:00:00 00:00:00 Only Unassigned, SATHISH 350.1.13.10 ity of [place] [facility] 4.2.7.2.686 Madhu as [phone] [address] 2022-03-24 2022-03-24 Ref[facility]ick [facility] 1.2.840.114 [id number] Univers 00:00:00 00:00:00 Kayode HEALTH 350.1.13.10 it y of [place] 4.2.7.2.686 Madhu as KENN?BLEA [phone] [address] MEDICAL OFFICE [facility] 2022-03-01 2022-03-01 Telephone [facility] 1.2.393.469 [id number] Univers 00:00:00 00:00:00 Kayode HEALTH 350.1.13.10 it y [facility] 4.2.7.2.686 Madhu as KENN?BLEA [phone] [address] OFFICE [facility] 2022-02-24 2022-02-24 Telephone [facility] 1.2.241.793 [id number] Univers 00:00:00 00:00:00 Kayode HEALTH 350.1.13.10 it y of [place] 4.2.7.2.686 Madhu as KENN?BLEA [phone] [address] 2022-02-17 2022-02-17 Referick PereiraCLOVIS BAPTIST [facility] 1.2.840.114 [id number] Univers 00:00:00 00:00:00 Kayode HEALTH 350.1.13.10 it y of [place] 4.2.7.2.686 Madhu as KENN?BLEA [phone] [address] OFFICE [facility] 2022-02-16 2022-02-16 Telephone [facility] 1.2.046.021 [id number] Univers 00:00:00 00:00:00 Kayode HEALTH 350.1.13.10 it y of [place] 4.2.7.2.686 Madhu as KENN?BLEA [phone] [address] OFFICE [facility] 2022-02-16 2022-02-16 Letter [facility] 1.2.840.114 [id number] Univers 00:00:00 00:00:00 (Out) Kayode HEALTH 350.1.13.10 it y of [place] 4.2.7.2.686 Madhu as KENN?BLEA [phone] [facility] [address] [place] MEDICAL OFFICE BUILDING 2022-02-15 2022-02-15 Outpatient R [facility] [id number] Univers 10:00:00 10:00:00 CHRISTINA turner o seble [facility] 2022-02-15 2022-02-15 Laboratory Only, Ang Db Test [facility] 1.2.8 40.114 [id number] Univers 10:00:00 10:00:00 Only Chepe, Christina HEALTH 350.1.13.10 ity of [place] 4.2.7.2.686 Madhu as KENN?BLEA [phone] [address] OFFICE [facility] 2022-02-15 2022-02-15 Outpatient R [facility] [id number] Univers 10:00:00 09:31:54 CHRISTINA turner o seble [facility] 2022-02-14 2022-02-14 Outpatient R [facility] [id number] Univers 10:15:00 10:15:00 CHRISTINAPEDRO LUIS maza [facility] 2022-02-11 2022-02-11 Letter VIOLETTA Jones 1.2.840.114 [id number] Univers 00:00:00 00:00:00 (Out) Jacqueline BOWER 350.1.13.10 it y of HOSPITAL 4.2.7.2.686 Madhu as [phone] [address] 2022-02-11 2022-02-11 Telephone Provider, [facility] 1.2.840.114 [id number] Univers 00:00:00 00:00:00 Ang Db HEALTH 350.1.13.10 it y of Urgent Care [place] 4.2.7.2.686 [place] KENN?BLEA [phone] [address] MEDICAL OFFICE [facility] 2022-02-10 2022-02-10 Urgent Green, [facility] 1.2.840.114 [id number] Univers 11:00:00 11:00:00 Care Henok HEALTH 350.1.13.10 it y [facility] 4.2.7.2.686 Madhu as KENN?BLEA [phone] Wy dicedi TORRES [address] [place] MEDICAL OFFICE [facility] 2022-02-10 2022-02-10 Outpatient R [facility]AN [facility] [id number] Univers 11:00:00 10:54:56 HENOK ity of [facility] 2022-01-27 2022-01-27 Telephone [facility] 1.2.831.602 [id number] Univers 00:00:00 00:00:00 [facility] 350.1.13.10 it y of [place] 4.2.7.2.686 Madhu as KENN?BLEA [phone] [facility] 044 [facility] 2022-01-18 2022-01-18 Nail Machine Operator Nathanael, Adc Lab Main [facility] 1.2.8 40.114 [id number] Univers 07:45:00 08:00:00 Visit Ja Sparks [place] 350.1.13.10 ity of [place].2.7.2.686 [place] [phone] Wy hema PARKINSON 353 [facility] 2022-01-18 2022-01-18 Outpatient R CLARE [facility] [id number] Univers 07:45:00 07:45:00 JA itlorenzo [facility] 2022-01-18 2022-01-18 Orders Doctor VIOLETTA 1.2.840.114 [id number] Univers 00:00:00 00:00:00 Only Unassigned, SATHISH 350.1.13.10 ity of [place] [facility] 4.2.7.2.686 Madhu as [phone] [address] 2022-01-03 2022-01-03 Telephone [facility] 1.2.358.077 [id number] Univers 00:00:00 00:00:00 [facility] 350.1.13.10 it y of [place] 4.2.7.2.686 Madhu as KENN?BLEA [phone] Wy dicedi [facility] 044 [facility] OFFICE [facility] 2021-12-21 2021-12-21 Refill [facility] 1.2.840.114 [id number] Univers 00:00:00 00:00:00 [facility] 350.1.13.10 it y of [facility] 4.2.7.2.686 Madhu as KENN?BLEA [phone] [address] OFFICE [facility] 2021-12-08 2021-12-08 Telephone [facility] 1.2.371.952 [id number] Univers 00:00:00 00:00:00 Kayode HEALTH 350.1.13.10 it y of [facility] 4.2.7.2.686 Madhu as KENN?BLEA [phone] [address] OFFICE [facility] 2021-11-22 2021-11-22 Telephone [facility] 1.2.164.009 [id number] Univers 00:00:00 00:00:00 Kayode HEALTH 350.1.13.10 it y of [place] 4.2.7.2.686 Madhu as KENN?BLEA [phone] [address] OFFICE [facility] 2021-11-06 2021-11-06 Orders Doctor VIOLETTA 1.2.840.114 [id number] Univers 00:00:00 00:00:00 Only Unassigned, SATHISH 350.1.13.10 ity of [place] [facility] 4.2.7.2.686 Madhu as [phone] [address] 2021-11-01 2021-11-01 Telephone [facility] 1.2.198.854 [id number] Univers 00:00:00 00:00:00 [facility] 350.1.13.10 it y of [place] 4.2.7.2.686 Madhu as KENN?BLEA [phone] [address] OFFICE [facility] 2021-10-14 2021-10-14 Outpatient R MICHAEL [facility] [id number] Univers 09:45:00 09:45:00 KAYODE ity [facility] 2021-10-14 2021-10-14 Office Michael [facility] 1.2.840.114 [id number] Univers 09:45:00 09:45:00 Visit [facility] 350.1.13.10 it y of [facility] 4.2.7.2.686 Madhu as KENN?BLEA [phone] Wy dicedi TORRES 044 [facility] OFFICE [facility] 2021-10-14 2021-10-14 Outpatient R MICHAEL [facility] [id number] Univers 09:45:00 09:38:09 KAYODE ity [facility] 2021-10-14 2021-10-14 Marc Pereira [facility] 1.2.840.114 [id number] Univers 00:00:00 00:00:00 (Out) [facility] 350.1.13.10 it y of [place] 4.2.7.2.686 Madhu as KENN?BLEA [phone] Wy dicedi [facility] 044 [facility] OFFICE [facility] 2021-10-08 2021-10-08 Nail Machine Operator Nathanael, Adc Lab Main [facility] 1.2.8 40.114 [id number] Univers 08:15:00 08:30:00 Visit Ja Sparks 350.1.13.10 ity of [place].2.7.2.[place] [phone] Wy hema [facility] 353 [facility] 2021-10-08 2021-10-08 Outpatient R CLARE [facility] [id number] Univers 08:15:00 08:15:00 JA itlorenzo [facility] 2021-10-08 2021-10-08 Orders Doctor SHIPLEY 1.2.840.114 [id number] Univers 00:00:00 00:00:00 Only Unassigned, SATHISH 350.1.13.10 ity of [place] [facility]OSPITAL 4.2.7.2.686 Madhu as [phone] [address] 2021-09-21 2021-09-21 Orders Doctor VIOLETTA 1.2.840.114 [id number] Univers 00:00:00 00:00:00 Only Unassigned, SATHISH 350.1.13.10 ity of [place] HOSPITAL 4.2.7.2.686 Madhu as [phone] [address] 2021-08-27 2021-08-27 Nail Machine Operator Nathanael, Adc Lab Main [facility] 1.2.8 40.114 [id number] Univers 08:00:00 08:15:00 Visit Susy Hernandez Gonzalez [place] 350.1.13. 10 [facility] 4.2.7.2.[place] [phone] Wy dicedi NAL 353 [facility] 2021-08-27 2021-08-27 Outpatient R JENNIFER, [facility] [id number] Univers 08:00:00 08:00:00 VEENAED yue o f [facility] 2021-08-27 2021-08-27 Orders Doctor VIOLETTA 1.2.840.114 [id number] Univers 00:00:00 00:00:00 Only Unassigned, SATHISH 350.1.13.10 ity of [place] [facility]OSPITAL 4.2.7.2.686 Madhu as [phone] [address] 2021-08-05 2021-08-05 Jan [facility] 1.2.840.114 [id number] Univers 00:00:00 00:00:00 [facility] 350.1.13.10 it y of [facility] 4.2.7.2.686 Madhu as KENN?BLEA [phone] [facility] 044 [facility] OFFICE [facility] 2021-08-03 2021-08-03 Nail Machine Operator Nathanael, Adc Lab Main [facility] 1.2.8 40.114 [id number] [facility] 07:30:00 07:45:00 Visit Susy Hernandez Gonzalez [place] 350.1.13. 10 ity [facility] 4.2.7.2.[place] [phone] Wy dical NAL 353 [facility] 2021-08-03 2021-08-03 Outpatient R JENNIFER, [facility] [id number] Univers 07:30:00 07:30:00 SUSY pruett [facility] 2021-08-03 2021-08-03 Orders Doctor VIOLETTA 1.2.840.114 [id number] Univers 00:00:00 00:00:00 Only Unassigned, SATHISH 350.1.13.10 ity of [place] [facility]OSPITAL 4.2.7.2.686 Madhu as [phone] [address] 2021-07-062021-07-06 Nail Machine Operator Nathanael, Adc Lab Main [facility] 1.2.8 40.114 [id number] Univers 07:33:55 07:48:55 Visit Ja Sparks 350.1.13.10 ity [facility] 4.2.7.2.686 [facility] [phone] Wy dical [address] 2021-07-06 2021-07-06 Outpatient R [facility] [id number] Univers 07:30:00 07:30:00 [facility] ity o f [facility] 2021-07-06 2021-07-06 [facility] [id number] Univers 07:30:00 07:30:00 [facility] 2021-06-25 2021-06-25 Orders Doctor VIOLETTA 1.2.840.114 [id number] Univers 00:00:00 00:00:00 Only Unassigned, SATHISH 350.1.13.10 ity of [place] [facility] 4.2.7.2.[address] [place] [address] [phone] [facility] [address] 2021-06-24 2021-06-24 Outpatient R RADIOLOGY [facility] [id number] Univers 14:06:34 23:59:00 ity of [facility] 2021-06-24 2021-06-24 [facility] Radiology [facility] 1.2.840.114 [id number] Univers 14:06:34 23:59:00 Encounter [place] 350.1.13.10 ity of [facility] 4.2.7.2.[address] [place] [address] [phone] [facility] [address] 2021-06-21 2021-06-21 [facility] Radiology [facility] 1.2.840.114 [id number] Univers 07:43:09 23:59:00 Encounter [place] 350.1.13.10 ity of [place] 4.2.7.2.686 [facility] [phone] [facility] [address] 2021-06-21 2021-06-21 Nail Machine Operator Nathanael, Adc Lab Main [facility] 1.2.8 40.114 [id number] Univers 07:42:04 07:57:04 Visit Susy Hernandez Gonzalez [place] 350.1.13. 10 ity of [place].2.7.2.686 [place] [phone] [facility] [address] 2021-06-21 2021-06-21 Outpatient R JENNIFER [facility] [id number] Univers 07:30:00 07:30:00 SUSY ity o f [facility] 2021-06-21 2021-06-21 Outpatient R RADIOLOGY [facility] [id number] Univers 00:00:00 00:00:00 ity [facility] 2021-06-15 2021-06-15 Outpatient R MICHAEL [facility] [id number] Univers 08:30:00 08:30:00 [facility] 2021-06-15 2021-06-15 Office [facility] 1.2.840.114 [id number] Univers 07:56:08 08:11:08 Visit [facility] 350.1.13.10 it y of [place] 4.2.7.2.686 Madhu as KENN?BLEA [phone] [address] OFFICE [facility] 2021-06-15 2021-06-15 Letter [facility] 1.2.840.114 [id number] Univers 00:00:00 00:00:00 (Out) [facility] 350.1.13.10 it y of [place] 4.2.7.2.686 Madhu as KENN?BLEA [phone] [address] MEDICAL OFFICE [facility] 2021-06-08 2021-06-08 Telephone Michael [facility] 1.2.786.992 [id number] Univers 00:00:00 00:00:00 [facility] 350.1.13.10 it y of [facility] 4.2.7.2.686 Madhu as KENN?BLEA [phone] [address] OFFICE [facility] 2021-06-07 2021-06-07 Emergency X DORIAN [facility] ERT [id number] Univers 09:15:00 10:29:00 CYDNEY [facility] 2021-06-07 2021-06-07 Emergency [facility] 1.2.840.114 [id number] Univers 09:15:00 10:29:00 Cydney MACEDO 350.1.13.10 ity of [place] 4.2.7.2.686 [facility] [phone] [facility] [address] [place] 2021-06-07 2021-06-07 Emergency [facility] ERT [id number] Univers 09:15:00 10:29:00 CYDNEY ity of [facility] 2021-05-31 2021-05-31 Referick [facility] 1.2.840.114 [id number] Univers 00:00:00 00:00:00 [facility] 350.1.13.10 it y of [place] 4.2.7.2.686 Madhu as KENN?BLEA [id number] [address] MEDICAL OFFICE [facility] 2021-05-21 2021-05-21 Orders Doctor SHIPLEY 1.2.840.114 [id number] Univers 00:00:00 00:00:00 Only Unassigned, SATHISH 350.1.13.10 ity of [place] HOSPITAL 4.2.7.2.686 Madhu as [phone] [facility] 009 [place] 2021-05-14 2021-05-14 Orders Doctor SHIPLEY 1.2.840.114 [id number] Univers 00:00:00 00:00:00 Only Unassigned, SATHISH 350.1.13.10 ity of [place] HOSPITAL 4.2.7.2.686 Madhu as [phone] [facility] 009 [place] 2021-05-04 2021-05-04 [facility] 1.2.840.114 [id number] Univers 08:11:23 23:59:00 Encounter Susy Macedo 350.1.13.10 ity of [place] 4.2.7.2.686 [facility] [phone] [facility] 801 [place] 2021-05-04 2021-05-04 Nail Machine Operator Nathanael, Ahsan Lab Main [facility] 1.2.8 40.114 [id number] Univers 08:07:14 08:22:14 Visit Ja Sparks 350.1.13.10 ity of [place] Hernandez 4.2.7.2.686 [place] Profdonald [phone] [address] 2021-05-04 2021-05-04 Outpatient R JENNIFER [facility] [id number] Univers 00:00:00 00:00:00 SUSY maza seble [facility] 2021-04-20 2021-04-20 Nail Machine Operator Nathanael, Ahsan Lab Main [facility] 1.2.8 40.114 [id number] Univers 07:36:29 07:51:29 Visit Susy Hernandez 350.1.13. 10 ity of [place].2.7.2.[place] [phone] [address] 2021-04-20 2021-04-20 Out[facility] [id number] Univers 07:30:00 07:30:00 SUSY maza seble [facility] 2021-04-19 2021-04-19 Orders Doctor VIOLETTA 1.2.840.114 [id number] Univers 00:00:00 00:00:00 Only Unassigned, SATHISH 350.1.13.10 ity of [place] [facility] 4.2.7.2.686 Madhu as [phone] [address] 2021-04-08 2021-04-08 Telephone [facility] 1.2.529.846 [id number] Univers 00:00:00 00:00:00 [facility] 350.1.13.10 it y of [place] 4.2.7.2.686 Madhu as Kenn?Blea [phone] [address] Medical Office Building 2021-04-07 2021-04-07 Office [facility] 1.2.840.114 [id number] Univers 08:39:51 09:09:51 Visit [facility] 350.1.13.10 it y of [place] 4.2.7.2.686 Madhu as Kenn?Blea [phone] [address] Medical Office Building 2021-04-07 2021-04-07 Outpatient R MICHAEL [facility] [id number] Univers 09:00:00 09:00:00 KAYODE turner [facility] 2021-04-02 2021-04-02 Emergency [facility] 1.2.564.065 [id number] Univers 16:23:00 20:33:00 Tamera S [place] 350.1.13.10 i ty of [place] 4.2.7.2.686 [facility] [phone] [address] 2021-04-02 2021-04-02 Emergency [facility] 1.2.670.372 [id number] Univers 16:23:00 20:33:00 Tamera S [place] 350.1.13.10 i ty of [place] 4.2.7.2.686 [facility] [id number] [address] 2021-03-31 2021-03-31 Telephone [facility] 1.2.788.704 [id number] Univers 00:00:00 00:00:00 [facility] 350.1.13.10 it y of [place] 4.2.7.2.686 Madhu as Kenn?Blea [phone] [address] 2021-03-31 2021-03-31 Wilton [facility] 1.2.307.841 [id number] Univers 00:00:00 00:00:00 [facility] 350.1.13.10 it y of [place] 4.2.7.2.686 Madhu as Kenn?Blea [phone] [address] 2021-03-30 2021-03-30 Telephone [facility] 1.2.325.923 [id number] Univers 00:00:00 00:00:00 [facility] 350.1.13.10 it y of [place] 4.2.7.2.686 Madhu as Kenn?Blea [phone] [address] 2021-03-29 2021-03-29 Refill [facility] 1.2.840.114 [id number] Univers 00:00:00 00:00:00 [facility] 350.1.13.10 it y of [place] 4.2.7.2.686 Madhu as Professio [phone] Wy dicme nal [address] [place] [address] Office Building One 2021-03-29 2021-03-29 Jan [facility] 1.2.840.114 [id number] Univers 00:00:00 00:00:00 [facility] 350.1.13.10 it y of [place] 4.2.7.2.686 Madhu as Professio [phone] [facility] nal [address] [place] [address] Office Building One 2021-03-28 2021-03-28 Jan [facility] 1.2.840.114 [id number] Univers 00:00:00 00:00:00 [facility] 350.1.13.10 it y of [place] 4.2.7.2.686 Madhu as Kenn?Blea [phone] [address] Office Building 2021-03-25 2021-03-25 Transition Demetris Perez 1.2.840.114 [id number] Univers 00:00:00 00:00:00 of Care Carol L Woods 350.1.13.10 i ty of [place]2.7.2.[place] [phone] [facility] [address] [place] 2021-03-25 2021-03-25 Transition Demetris Perez 1.2.840.114 [id number] Univers 00:00:00 00:00:00 of Care Carol L Woods 350.1.13.10 i ty of [place].2.7.2.686 [place] [phone] [facility] [address] 2021-03-14 2021-03-24 [facility] Isabel Fitzgerald [facility] 1.2.84 0.114 [id number] Univers 12:26:00 11:09:00 Encounter Roni Duffy 350.1.13.10 ity of [place] 4.2.7.2.686 [place] [id number] [facility] [address] 2021-03-14 2021-03-24 [facility] Isabel Fitzgerald [facility] 1.2.84 0.114 [id number] Univers 12:26:00 11:09:00 Encounter Roni Duffy 350.1.13.10 ity of [place] 4.2.7.2.686 [place] [id number] [facility] [address] 2021-03-20 2021-03-20 Surgery [facility] 1.2.840.114 [id number] Univers 07:30:00 08:03:00 Margarita yee 350.1.13.10 ity of [place]2.7.2.[place] [phone] [facility] 020 [place] 2021-03-20 2021-03-20 Surgery [facility] 1.2.840.114 [id number] Univers 07:30:00 08:03:00 Margarita yee 350.1.13.10 ity of [place].2.7.2.[place] [phone] [address] 2021-03-17 2021-03-17 Telephone [facility] 1.2.559.131 [id number] Univers 00:00:00 00:00:00 [facility] 350.1.13.10 it y of [place] 4.2.7.2.686 Madhu as Kenn?Blea [phone] [address] Office Building 2021-03-10 2021-03-10 Out[facility] [id number] Univers 09:45:00 09:45:00 KAYODE itlorenzo [facility] 2021-02-26 2021-02-26 Telephone [facility] 1.2.041.972 [id number] Univers 00:00:00 00:00:00 [facility] 350.1.13.10 it y of [place] 4.2.7.2.686 Madhu as Professio [phone] [address] Office Building One 2021-02-24 2021-02-24 Outpatient R [facility] [id number] Univers 09:20:00 09:20:00 ity [facility] 2021-02-24 2021-02-24 Laboratory Lab, Adc Fam Pob I [facility] 1.2. 840.114 [id number] Univers 08:58:04 09:18:04 Only Kayode Pereira [facility] 350.1.13.10 ity of [place] 4.2.7.2.686 Madhu as Professio [phone] Wy dical nal 044 [place] Office [facility] One 2021-02-24 2021-02-24 Letter [facility] 1.2.840.114 [id number] Univers 00:00:00 00:00:00 (Out) [facility] 350.1.13.10 it y of [place] 4.2.7.2.686 Madhu as Professio [phone] Wy dical nal 044 [facility] One 2021-02-24 2021-02-24 Letter [facility] 1.2.840.114 [id number] Univers 00:00:00 00:00:00 (Out) [facility]olin[facility] 350.1.13.10 it y of [place] 4.2.7.2.686 Madhu as Professio [phone] Wy dical nal 044 [facility] One 2021-02-22 2021-02-22 Outpatient Leida PEREIRA [facility] [id number] Univers 15:15:00 15:15:00 KAYODE lorenzo [facility] 2021-02-22 2021-02-22 Office [facility] 1.2.840.114 [id number] Univers 14:18:49 15:08:09 Visit [facility] 350.1.13.10 it y of [place] 4.2.7.2.686 Madhu as Professio [phone] Wy dical nal 044 [place] Office [facility] One 2021-02-12 2021-02-12 Outpatient JOSE ALFREDO COYLE [facility] [id number] Univers 10:40:00 10:40:00 JOSE ALFREDO CARVALHO lorenzo [facility] 2021-02-07 2021-02-07 [facility] [id number]..[id number] Univers 00:00:00 00:00:00 [facility] [id number] it y of [place] [id number] Madhu as Professio [phone] [facility] nal 044 [place] [facility] 2021-02-06 2021-02-06 Telephone Cole [facility] [id number] Univers 00:00:00 00:00:00 [facility] [id number] it y of [place] [id number] Madhu as Professio [phone] [facility] 044 [place] [facility] 2021-02-05 2021-02-05 Laboratory Lab, Adc Fam Pob I [facility] 1.2. [id number] [id number] Univers 11:08:01 11:28:01 Only Cole [facility] [id number] ity of [place] [id number] Madhu as Professio [phone] [facility] nal 044 [facility] 2021-02-05 2021-02-05 Outpatient R COLE [facility] [id number] Univers 11:00:00 11:00:00 INGA ity of [facility] 2020-12-28 2020-12-28 Jan Carvalho [facility] [id number] Univers 00:00:00 00:00:00 Jose Alfredo [place] [id number] ity [id number] Profess[place] [phone] [facility] 092 [facility] 2020-12-07 2020-12-07 Urgent Provider, [facility] [id number] Univers 13:04:34 13:24:34 Care Daine Rayo [facility] [id number] ity of [place] [id number] Madhu as Professio [phone] [facility] 044 [place] [facility] 2020-12-07 2020-12-07 Outpatient R [facility] [id number] Univers 13:20:00 13:20:00 ity of [facility] 2020-12-07 2020-12-07 Marc Hendrickson [facility] [id number] [id number] Univers 00:00:00 00:00:00 (Out) [facility] [id number] it y of [place] [id number] Madhu as Professio [phone] Wy dical nal 044 [facility] One 2020-10-26 2020-10-26 Jan Carvalho [facility] [id number] [id number] Univers 00:00:00 00:00:00 Jose Alfredo Macedo [id number] [id number] [phone] Wy dical nal 092 [facility] 2020-10-24 2020-10-24 Nail Machine Operator Nathanael, Adc Lab Main [facility] 1.2.8 40.114 [id number] Univers 08:18:22 08:33:22 Visit MichaelKayode [id number] [place]y of [place] [id number] [phone] Wy dical nal 353 [facility] 2020-10-24 2020-10-24 [facility] [id number] Univers 08:30:00 08:30:00 KAYODE ity of [facility] 2020-10-23 2020-10-23 Urgent Provider, [facility] 1.2.840.114 [id number] Univers 07:58:19 08:18:19 Care Emeka [facility] 350.1.13.10 ity of [place] 4.2.7.2.686 Madhu as Professio [phone] Wy dical nal 044 [facility] One 2020-10-23 2020-10-23 Outpatient R [facility] [id number] Univers 08:00:00 08:00:00 ity of [facility] 2020-10-23 2020-10-23 [facility]phone [facility] 1.2.018.508 [id number] Univers 00:00:00 00:00:00 Kayode Barrientos 350.1.13.10 it y of [place] 4.2.7.2.686 Madhu as Professio [phone] Wy dical nal 044 [facility] One 2020-10-21 2020-10-21 Hospital [facility] 1.2.037.012 [id number] Univers 09:23:00 12:24:00 Encounter Chaparro Macedo 350.1.13.10 [place] [phone] [facility] 071 Branch 2020-10-21 2020-10-21 Surgery [facility] 1.2.840.114 [id number] Univers 11:29:00 12:10:00 Chaparro Lesly [place] 350.1.13.10 [place] [phone] [facility] 020 Branch 2020-10-21 2020-10-21 Orders Doctor VIOLETTA 1.2.840.114 [id number] Univers 00:00:00 00:00:00 Only Unassigned, SATHISH 350.1.13.10 ity of [place] [facility] 4.2.7.2.686 Madhu as [phone] [facility] 009 Branch 2020-10-20 2020-10-20 Laboratory Only, Adc Test [facility] 1.2.840. 114 [id number] Univers 08:55:32 09:10:32 Only Chaparro Tran 350.1.13.1 0 [place] of [place] [phone] [facility] 353 Branch 2020-10-20 2020-10-20 Outpatient R MASSIMO [facility] [id number] Univers 08:45:00 08:45:00 CHAPARRO turner [facility] 2020-10-16 2020-10-16 Nail Machine Operator Nathanael, Adc Lab Main [facility] 1.2.8 40.114 [id number] Univers 13:04:04 13:19:04 Visit Kayode Pereira 350.1.13.10 [place] [phone] [facility] 353 [facility] 2020-10-16 2020-10-16 Outpatient R MICHAEL [facility] [id number] Univers 13:15:00 13:15:00 KAYODE turner [facility] 2020-10-16 2020-10-16 Outpatient R PEREIRA [facility] [id number] Univers 13:15:00 13:15:00 KAYODE lorenzo [facility] 2020-10-16 2020-10-16 Nail Machine Operator Nathanael, Ahsan Lab Main [facility] 1.2.8 40.114 [id number] Univers 10:28:31 10:43:31 Visit Chaparro Tran 350.1.13.1 0 [place] [phone] Wy dical nal 353 [facility] 2020-10-16 2020-10-16 Outpatient R MASSIMO [facility] [id number] Univers 10:15:00 10:15:00 CHAPARRO yue [facility] 2020-10-16 2020-10-16 Telephone [facility] 1.2.855.140 [id number] Univers 00:00:00 00:00:00 [facility] 350.1.13.10 it y of [place] 4.2.7.2.686 Madhu as Professio [phone] Wy dical nal 044 [place] [facility] One 2020-09-30 2020-09-30 Orders Doctor VIOLETTA 1.2.840.114 [id number] Univers 00:00:00 00:00:00 Only Unassigned, SATHISH 350.1.13.10 ity of [place] [facility] 4.2.7.2.686 Madhu as [phone] [address] 2020-08-24 2020-08-24 [facility] 1.2.840.114 [id number] Univers 00:00:00 00:00:00 Jose Alfredo Macedo 350.1.13.10 [place] [phone] Wy dical nal 092 [place] [facility] 2020-07-08 2020-07-08 Jan [facility] 1.2.840.114 [id number] Univers 00:00:00 00:00:00 Jose Alfredo Macedo 350.1.13.10 [place] [phone] Wy dical nal 092 [facility] 2020-06-09 2020-06-09 Orders Doctor VIOLETTA 1.2.840.114 [id number] Univers 00:00:00 00:00:00 Only Unassigned, SATHISH 350.1.13.10 ity of [place] [facility] 4.2.7.2.686 Madhu as [phone] [address] 2020-05-27 2020-05-27 [facility] 1.2.840.114 [id number] Univers 00:00:00 00:00:00 Jose Alfredo Macedo 350.1.13.10 [place] [phone] Wy dicme nal [address] [place] [address] 2020-04-24 2020-04-24 [facility] 1.2.840.114 [id number] Univers 00:00:00 00:00:00 Jose Alfredo Macedo 350.1.13.10 [place] [phone] [facility] nal [address] [place] [address] 2020-03-16 2020-03-16 [facility] 1.2.840.114 [id number] Univers 00:00:00 00:00:00 Jose Alfredo Macedo 350.1.13.10 [place] [phone] [facility] nal [address] [place] [address] 2020-02-21 2020-02-21 Telephone [facility] 1.2.840.114 [id number] Univers 00:00:00 00:00:00 Jose Alfredo Macedo 350.1.13.10 [place] [phone] Wy dicme nal [address] [place] [address] 2020-02-20 2020-02-20 Referick [facility] 1.2.840.114 [id number] Univers 00:00:00 00:00:00 Jose Alfredo Macedo 350.1.13.10 [place] [phone] Wy dical nal 092 [facility] 2020-01-28 2020-01-28 [facility] 1.2.840.114 [id number] Univers 00:00:00 00:00:00 Jose Alfredo [place] 350.1.13.10 it[place].2.[place] [phone] Wy dical nal 092 [facility] 2019-11-29 2019-11-29 Outpatient R JOSE ALFREDO CARVALHO [facility] [id number] Univers 14:00:00 14:00:00 JOSE ALFREDO CARVALHO ity [facility] 2019-11-29 2019-11-29 Telemedici [facility] 1.2.840.114 [id number] Univers 12:03:54 12:23:54 ne Visit Jose Alfredo Brandt [place] 350.1.13.10 [place] [phone] Wy dical nal 092 [facility] 2019-11-26 2019-11-26 Telephone [facility] 1.2.840.114 [id number] Univers 00:00:00 00:00:00 Jose Alfredo [place] 350.1.13.10 [place] [phone] Wy dical nal 092 [facility] 2019-11-24 2019-11-24 Refill [facility] 1.2.840.114 [id number] Univers 00:00:00 00:00:00 [facility] 350.1.13.10 ity of Surgical 4.2.7.2.686 Madhu as Specialti [phone] Wy dical es 198 [facility] 2019-09-13 2019-09-13 Orders Doctor VIOLETTA 1.2.840.114 [id number] Univers 00:00:00 00:00:00 Only Unassigned, SATHISH 350.1.13.10 ity of [place] [facility] 4.2.7.2.686 Madhu as [phone] [address] 2019-09-06 2019-09-06 Referick Carvalho [facility] 1.2.840.114 [id number] Univers 00:00:00 00:00:00 [facility] 350.1.13.10 ity of Surgical 4.2.7.2.686 Madhu as Specialti [phone] Wy dical es 198 [facility] 2019-08-28 2019-08-28 Refill Michael [facility] 1.2.840.114 [id number] Univers 00:00:00 00:00:00 [facility] 350.1.13.10 it y of [place] 4.2.7.2.686 Madhu as Professio [phone] Wy dicme nal 044 [place] [facility] 2019-08-28 2019-08-28 Referick Carvalho [facility] 1.2.840.114 [id number] Univers 00:00:00 00:00:00 [facility] 350.1.13.10 ity of Surgical 4.2.7.2.686 Madhu as Specialti [phone] Wy dicme es 198 [facility] 2019-08-26 2019-08-26 Telephone [facility] 1.2.039.122 [id number] Univers 00:00:00 00:00:00 [facility] 350.1.13.10 it y of [place] 4.2.7.2.686 Madhu as Professio [phone] [facility] nal 044 [facility] 2019-08-19 2019-08-19 Office Michael NECADEN 1.2.840.114 [id number] Univers 12:35:11 12:50:11 Visit [facility] 350.1.13.10 it y of [place] 4.2.7.2.686 Madhu as Professio [phone] [address] Office [facility] 2019-08-19 2019-08-19 Orders Doctor SHIPLEY 1.2.840.114 [id number] Univers 00:00:00 00:00:00 Only Unassigned, SATHISH 350.1.13.10 ity of [place] [facility] 4.2.7.2.686 Madhu as [phone] [facility] [address] [place] 2019-08-19 2019-08-19 Marc [facility] 1.2.840.114 [id number] Univers 00:00:00 00:00:00 (Out) [facility] 350.1.13.10 it y of [place] 4.2.7.2.686 Madhu as Professio [phone] Me dical nal 044 [facility] 2019-08-10 2019-08-10 aJn [facility] 1.2.840.114 [id number] Univers 00:00:00 00:00:00 [facility] 350.1.13.10 ity of Surgical 4.2.7.2.686 Madhu as Specialti [phone] Me dical es 198 [facility] 2019-02-21 2019-02-21 Jan [facility] 1.2.840.114 [id number] Univers 00:00:00 00:00:00 [facility] 350.1.13.10 ity of Surgical 4.2.7.2.686 Madhu as Specialti [phone] Me dical es 198 [facility] 2017-05-18 2017-05-19 Outpt Diag nullFlavo [facility] [id number] Memoria 15:45:00 04:59:00 Services r Outpatient 01 l Imaging Navin Hold[place] 2017-05-18 2017-05-19 Outpt Diag nullFlavo [facility] [id number] Memoria 15:45:00 04:59:00 Services r Outpatient 01 l Imaging Navin [place] 2017-05-18 2017-05-18 [facility] [id number] 10:45:00 23:59:00 Addison Ricketts 2016-02-19 2016-02-20 Outpt Diag nullFlavo [facility] [id number] Memoria 16:06:00 04:59:00 Services r Outpatient 00 l Imaging Navin [place] 2016-02-19 2016-02-20 Outpt Diag nullFlavo [facility] [id number] Memoria 16:06:00 04:59:00 Services r Outpatient 00 l Imaging Navin Friasann 2016-02-19 2016-02-19 [facility] [id number] 11:06:00 23:59:00 Abram Johanna 00 Results Test Description Test Time Test Comments Results Result Comments Source URINALYSIS 2022-06-21 14:37:41 Test Item Value Reference Range Interpretation Comme nts APPEARANCE (test code = Clear Clear 7217763855) COLOR (test code = 8838639041) Yellow Yellow PH (test code = 4169288970) 4.8-8.0 SP GRAVITY (test code = 1.003-1.030 0018960341) GLU U QUAL (test code = Normal Normal 0466960316) BLOOD (test code = 4458012654) Negative Negative KETONES (test code = 4334960731) Negative Negative PROTEIN (test code = 2887-8) Negative Negative UROBILIN (test code = Normal Normal 2160573493) BILIRUBIN (test code = Negative Negative 6806479346) NITRITE (test code = 0428537348) Negative Negative LEUK HAYLEE (test code = Negative Negative 0567163602) RBC/HPF (test code = 2226302341) See_Comment [Automated message] The system which ge nerated this result transmit chad reference range: 0 - 3 HP F. The reference range was not used to interpret th is result as normal/abnormal . WBC/HPF (test code = 1403648973) See_Comment [Automated message] The system which ge nerated this result transmit chad reference range: 0 - 5 HP F. The reference range was not used to interpret th is result as normal/abnormal . BACTERIA (test code = Few Negative A 3430160817) MUCOUS (test code = 6413482615) Slight Negative LPF A HYAL CAST (test code = See_Comment H [Aut omated message] The 7364229179) system which ge nerated this result transmit chad reference range: <=2 LPF. The reference range was not u sed to interpret this result as normal/abnormal . Lab Interpretation (test code = Abnormal 78705-8) [facility] WITH [id number] 14:35:01 Test Item Value Reference Range Interpretation Comments WBC (test code = See_Comment [Automated 7513-2) message] The sy stem which generated this result transmitted reference range : 4.20 - 10.70 10*3/?L. The reference range was not used to interpret this result as normal/abnormal . RBC (test code = See_Comment [Automated 602-8) message] The sy stem which generated this [...] RDW-SD (test code = 45.3 fL 38.5-51.6 71041-3) RDW-CV (test code = 12.9 % 12.1-15.4 788-0) PLT (test code = See_Comment H [Automated 777-3) message] The sy stem which generated this result transmitted reference range : 150 - 328 10*3/ ?L. The reference r masood was not used to interpret this result as normal/abnormal . MPV (test code = 10.0 fL 9.8-13 16244-8) NRBC/100 WBC (test See_Comment [Automat ed code = 2707100191) message] The system which generated this result transmitted reference range : 0.0 - 10.0 /100 WBCs. The refer ence range was not u sed to interpret th is result as normal/abnormal . NRBC x10^3 (test code See_Comment [Auto mated = 0371613293) message] The s ystem which generated this result transmitted reference range : 10*3/?L. The reference range was not used to interpret this result as normal/abnormal . GRAN MAT (NEUT) % 69.1 % (test code = 770-8) IMM GRAN % (test code 0.60 % = 8838633583) LYMPH % (test code = 15.1 % 736-9) MONO % (test code = 14.1 % 5905-5) EOS % (test code = 0.7 % 713-8) BASO % (test code = 0.4 % 706-2) GRAN MAT x10^3(ANC) 6.25 10*3/uL 1.99-6.95 (test code = 9162537728) IMM GRAN x10^3 (test 0.05 10*3/uL 0-0.06 code = 7984624105) LYMPH x10^3 (test code 1.36 10*3/uL 1.09-3.23 = 731-0) MONO x10^3 (test code 1.27 10*3/uL 0.36-1.02 H = 742-7) EOS x10^3 (test code = 0.06 10*3/uL 0.06-0.53 711-2) BASO x10^3 (test code 0.04 10*3/uL 0.01-0.09 = 704-7) Lab Interpretation Abnormal (test code = 91374-2) [facility]
[2022-12-24 01:36] LABS: Absolute Lymphocytes (CBC) 1.5 K/uL (0.7-4.9); Hematocrit 41.4 % (39.6-49.0); Lymphocytes % 14.8 % (15.3-44.8); MCV 97.5 fL (80-100); MPV 7.7 fL (7.6-11.3); RBC Red Blood Cell Count 4.25 M/uL (4.33-5.43)
[2022-12-24] MEDS ORDERED: ONDANSETRON 4 MG/2 ML VIAL ONE ×2 (01:36→04:05)
[2022-12-24] MEDS ORDERED: BACI/NEOMYCIN/POLY OINT 15GM TOP ONE (01:36)
[2022-12-24] MEDS ORDERED: MORPHINE 4 MG/ML SYR ONE (01:36)
[2022-12-24] MEDS ORDERED: TETANUS & DIPHTHERIA TOX,ADULT 0.5 ML VIAL ONE (01:36)
[2022-12-24] MEDS ORDERED: NA CHLORIDE 0.9% 500 ML ONE (01:36)
[2022-12-24 01:40] LABS: Protime INR 0.98
[2022-12-24 01:53] LABS: Albumin 3.4 g/dL (3.4-5.0); Bilirubin Direct 0.2 mg/dL (0-0.2); Bilirubin Indirect, Calculated 0.6 mg/dL (0.2-0.8); Bilirubin Total 0.8 mg/dL (0.2-1.0); Potassium 3.2 mEq/L (3.5-5.1); Protein, Total 7.3 g/dL (6.4-8.2)
[2022-12-24 01:55] LABS: Specific Gravity 1.013 (1.005-1.030); Urine Bilirubin NEGATIVE (Negative); Urine Blood Negative (Negative); Urine Clarity Clear (Clear); Urine Color Light-Yellow (Yellow); Urine Glucose NEGATIVE (Negative); Urine Protein NEGATIVE (Negative); Urine Urobilinogen Normal (Normal)
[2022-12-24 02:19] LABS: Barbiturates NEGATIVE (NEGATIVE); Benzodiazepines NEGATIVE (NEGATIVE); Cocaine NEGATIVE (NEGATIVE); METHAMPHETAM NEGATIVE (NEGATIVE); Methadone NEGATIVE (NEGATIVE); Opiates POSITIVE (NEGATIVE); Phencyclidine NEGATIVE (NEGATIVE); THC Cannibis NEGATIVE (NEGATIVE)
[2022-12-24] MEDS ORDERED: HYDROMORPHONE HCL 0.5 MG/0.5 ML INJ ONE ×2 (04:05→05:33)
[2022-12-24] MEDS ORDERED: POTASSIUM 25 MEQ EFFERV TAB ONE (04:05)
--- NOTE | 2022-12-24 05:22 | ER ---
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 Coronavirus screen: Vaccine status: Patient reports receiving the 2nd dose of the covid vaccine. Ebola Screen: Patient negative for fever greater than or equal to 101.5 degrees Fahrenheit, and additional compatible Ebola Virus Disease symptoms. Initial Sepsis Screen: Does the patient meet any 2 criteria? No. Patient's initial sepsis screen is negative. Does the patient have a suspected source of infection? No. Patient's initial sepsis screen is negative. Risk Assessment: Do you want to hurt yourself or someone else? Patient reports no desire to harm self or others. 00:46 Method Of Arrival: Wheelchair kl 00:46 Acuity: IRINEO 3 kl 00:46 Onset of symptoms was December 23, 2022 at 23:15. vc1 Triage Assessment: 00:49 General: Appears distressed, uncomfortable, Behavior is anxious. Pain: Complains of kl pain in right lateral anterior chest right knee right elbow right great toe Pain currently is 10 out of 10 on a pain scale. Aggravated by increased activity. Derm: Wound noted right elbow Bruising that is dark purple, on right knee right great toe. Historical: - Allergies: 00:48 Benadryl; kl - PMHx: 00:48 Hypertension; kl - PSHx: 00:48 Knee replacement x2-left; Shoulder surgery-left; kl - Immunization history:: Adult Immunizations Last tetanus immunization: unknown. Screenin:00 [facility] ED Fall Risk Assessment (Adult) History of falling in the last 3 months, vc1 including since admission Yes- fall prone (multiple falls) (3 pts) Confusion or Disorientation No (0 pts) Intoxicated or Sedated No (0 pts) Impaired Gait Yes (1 pt) Mobility Assist Device Used No (0 pt) Altered Elimination No (0 pt) Score/Fall Risk Level 3 or more points = High Risk Oriented to surroundings, Maintained a safe environment, Educated pt \T\ family on fall prevention, incl call for assistance when getting out of bed. Abuse screen: Denies threats or abuse. Nutritional screening: No deficits noted. Tuberculosis screening: No symptoms or risk factors identified. Assessment: 02:00 Reassessment: No changes from previously documented assessment. Patient and/or family vc1 updated on plan of care and expected duration. Pain level reassessed. Patient states symptoms have not improved. 02:49 Reassessment: No changes from previously documented assessment. Patient and/or family vc1 updated on plan of care and expected duration. Pain level reassessed. Patient states symptoms have not improved. 04:00 Reassessment: No changes from previously documented assessment. Patient and/or family vc1 updated on plan of care and expected duration. Pain level reassessed. Patient states symptoms have not improved. Pain: Complains of pain in right lateral anterior chest Pain does not radiate. Pain currently is 10 out of 10 on a pain scale. Aggravated by increased activity, movement, deep breath. 05:00 Reassessment: No changes from previously documented assessment. Patient and/or family vc1 updated on plan of care and expected duration. Pain level reassessed. Patient is alert, oriented x 3, equal unlabored respirations, skin warm/dry/pink. 05:45 Reassessment: No changes from previously documented assessment. Patient and/or family vc1 updated on plan of care and expected duration. Pain level reassessed. Patient is alert, oriented x 3, equal unlabored respirations, skin warm/dry/pink. Vital Signs: 00:46 BP 189 / 97; Pulse 88; Resp 20; Temp 98.1; Pulse Ox 99% on R/A; Weight 76.2 kg (M); kl Height 5 ft. 7 in. ; Pain 05/02; 01:00 BP 181 / 71; Pulse 58; Resp 16; Pulse Ox 100% ; vc1 02:00 BP 167 / 75; Pulse 66; Resp 16; Pulse Ox 97% on R/A; vc1 02:52 BP 140 / 99; Pulse 65; Resp 15; Pulse Ox 100% on R/A; vc1 03:30 BP 149 / 73; Pulse 63; Resp 13; Pulse Ox 98% on R/A; vc1 04:00 BP 118 / 84; Pulse 63; Resp 17; Pulse Ox 98% on R/A; vc1 04:30 BP 146 / 69; Pulse 62; Resp 19; Pulse Ox 97% on R/A; vc1 05:00 BP 138 / 74; Pulse 61; Resp 15; Pulse Ox 97% on R/A; vc1 05:30 BP 142 / 74; Pulse 63; Resp 13; Pulse Ox 100% on R/A; vc1 00:46 Body Mass Index 26.31 (76.20 kg, 170.18 cm) kl 00:46 Pain Scale: Adult kl ED Course: 00:45 Patient arrived in ED. kl 00:46 Mark Aquino MD is Attending Physician. alan 00:48 Triage completed. kl 01:00 Arm band placed on right wrist. vc1 01:09 Yisel Kunz RN is Primary Nurse. vc1 01:23 Knee Right 3 View XRAY In Process Unspecified. EDMS 01:23 Foot Right 3 View XRAY In Process Unspecified. EDMS 01:23 Chest Single View XRAY In Process Unspecified. EDMS 01:30 Patient has correct armband on for positive identification. Bed in low position. Call vc1 light in reach. Client placed on continuous cardiac and pulse oximetry monitoring. NIBP monitoring applied. 02:57 CT Traumagram (Head C Spine CAP W Con) In Process Unspecified. EDMS 05:16 Trevor Kay MD is Referral Physician. alan 06:40 No provider procedures requiring assistance completed. IV discontinued, intact, vc1 bleeding controlled, No redness/swelling at site. Pressure dressing applied. 06:52 INCENTIVE SPIROMETRY Sent. vc1 Administered Medications: 01:53 Drug: Pigdkkvi-Xsargpxbrm-Jzxyloasb Topical Ointment 1 application {Note: right elbow.} vc1 Route: Topical; Site: affected area; 01:54 Drug: Tetanus Toxoid,Adsorbed IM 0.5 ml {[employer]: [email or web address]. Exp: 01/01/2024. vc1 Lot #: [id number]. } Route: IM; Site: left deltoid; 02:30 Follow up: Response: (VIS) Vaccine information sheet provided today. Questions and/or vc1 concerns addressed. VIS edition date: Feb 26, 2021.; No adverse reaction 01:54 Drug: NS 0.9% IV 500 ml Route: IV; Rate: bolus; Site: right antecubital; vc1 02:30 Follow up: IV Status: Completed infusion; IV Intake: 500ml vc1 01:54 Drug: morphine IVP or IV 4 mg Route: IVP; Infused Over: 4 mins; Site: right antecubital;vc1 02:30 Follow up: Response: No adverse reaction; Pain is unchanged, physician notified vc1 01:54 Drug: Ondansetron IVP 4 mg Route: IVP; Site: right antecubital; vc1 02:30 Follow up: Response: No adverse reaction; Marked relief of symptoms vc1 04:08 Drug: Potassium PO Effervescent Tablet 25 mEq Route: PO; vc1 05:30 Follow up: Response: No adverse reaction vc1 04:08 Drug: HYDROmorphone IVP 0.5 mg Route: IVP; Site: right antecubital; vc1 04:30 Follow up: Response: No adverse reaction; Pain is unchanged, physician notified vc1 04:08 Drug: Ondansetron IVP 4 mg Route: IVP; Site: right antecubital; vc1 04:30 Follow up: Response: No adverse reaction; Marked relief of symptoms vc1 05:35 Drug: HYDROmorphone IVP 0.5 mg Route: IVP; Site: right antecubital; vc1 06:00 Follow up: Response: No adverse reaction; Pain is unchanged, physician notified vc1 06:17 Drug: fentaNYL Transdermal Patch (50 mcg/hr) 1 patches {Note: left deltoid.} Route: vc1 Transdermal; Site: affected area; Medication: 01:54 Vaccine Information Statement (VIS) provided today. Questions and/or concerns vc1 addressed. VIS edition date: February 26, 2021. Intake: 02:30 IV: 500ml; Total: 500ml. vc1 Outcome: 05:21 Discharge ordered by . alan 06:40 Discharged to home via wheelchair. vc1 06:40 Condition: good 06:40 Discharge instructions given to patient, Instructed on discharge instructions, follow up and referral plans. medication usage, Demonstrated understanding of instructions, follow-up care, medications, Prescriptions given X 2. 06:46 Patient left the ED. vc1 Signatures: Dispatcher [employer] EDDiane Akins RN RN kl Anderson, Corey, MD MD cha Calcote, Vanessa, RN RN vc1
--- NOTE | 2022-12-24 05:22 | EDPHYS ---
Physician Documentation [facility] Name: Dany Thornton Age: 62 yrs Sex: Male : 1960 Arrival Date: 12/24/2022 Time: 00:39 Bed 4 Private MD: ED Physician Mark Aquino HPI: 12/24 01:00 This 62 yrs old Male presents to ER via Wheelchair with complaints of FALL alan INJURED KNEE, RIGHT CHEST, RIGHT ELBOW. 01:00 Trauma demographics: County: The injury occurred in [place] Location of Injury: The alan injury occurred at a sports field or court. Mechanism of injury: Fall: the patient fell from a standing position and struck a concrete surface. Associated injuries: The patient sustained injury to the chest, contusion, right arm and right leg, abrasion, contusion, decreased range of motion, painful injury, swelling. Onset: The symptoms/episode began/occurred just prior to arrival. Details of fall: The patient fell from an upright position, while walking. Severity of symptoms: At their worst the symptoms were mild, moderate, in the emergency department the symptoms are unchanged. The patient has not experienced similar symptoms in the past. Historical: - Allergies: 00:48 Benadryl; kl - PMHx: 00:48 Hypertension; kl - PSHx: 00:48 Knee replacement x2-left; Shoulder surgery-left; kl - Immunization history:: Adult Immunizations Last tetanus immunization: unknown. ROS: 01:02 Constitutional: Negative for fever, chills, and weight loss, Eyes: Negative for injury, alan pain, redness, and discharge, ENT: Negative for injury, pain, and discharge, Neck: Negative for injury, pain, and swelling, Respiratory: Negative for shortness of breath, cough, wheezing, and pleuritic chest pain, Abdomen/GI: Negative for abdominal pain, nausea, vomiting, diarrhea, and constipation, Back: Negative for injury and pain, : Negative for injury, bleeding, discharge, and swelling, Skin: Negative for injury, rash, and discoloration, Neuro: Negative for headache, weakness, numbness, tingling, and seizure, Psych: Negative for depression, anxiety, suicide ideation, homicidal ideation, and hallucinations, Allergy/Immunology: Negative for hives, rash, and allergies, Endocrine: Negative for neck swelling, polydipsia, polyuria, polyphagia, and marked weight changes, Hematologic/Lymphatic: Negative for swollen nodes, abnormal bleeding, and unusual bruising. 01:02 Cardiovascular: Positive for chest pain, with movement, of the right leg and right knee and right arm and right elbow and right lateral anterior chest. 01:02 MS/extremity: Positive for contusion, decreased range of motion, pain, of the right arm and right leg. Exam: 01:02 Constitutional: This is a well developed, well nourished patient who is awake, alert, alan and in no acute distress. Head/Face: Normocephalic, atraumatic. Eyes: Pupils equal round and reactive to light, extra-ocular motions intact. Lids and lashes normal. Conjunctiva and sclera are non-icteric and not injected. Cornea within normal limits. Periorbital areas with no swelling, redness, or edema. ENT: Nares patent. No nasal discharge, no septal abnormalities noted. Tympanic membranes are normal and external auditory canals are clear. Oropharynx with no redness, swelling, or masses, exudates, or evidence of obstruction, uvula midline. Mucous membranes moist. Neck: Trachea midline, no thyromegaly or masses palpated, and no cervical lymphadenopathy. Supple, full range of motion without nuchal rigidity, or vertebral point tenderness. No Meningismus. Cardiovascular: Regular rate and rhythm with a normal S1 and S2. No gallops, murmurs, or rubs. Normal PMI, no JVD. No pulse deficits. Respiratory: Lungs have equal breath sounds bilaterally, clear to auscultation and percussion. No rales, rhonchi or wheezes noted. No increased work of breathing, no retractions or nasal flaring. Abdomen/GI: Soft, non-tender, with normal bowel sounds. No distension or tympany. No guarding or rebound. No evidence of tenderness throughout. Back: No spinal tenderness. No costovertebral tenderness. Full range of motion. Male : Normal genitalia with no discharge or lesions. Skin: Warm, dry with normal turgor. Normal color with no rashes, no lesions, and no evidence of cellulitis. Neuro: Awake and alert, GCS 15, oriented to person, place, time, and situation. Cranial nerves II-XII grossly intact. Motor strength 5/5 in all extremities. Sensory grossly intact. Cerebellar exam normal. Normal gait. Psych: Awake, alert, with orientation to person, place and time. Behavior, mood, and affect are within normal limits. 01:02 Chest/axilla: Inspection: normal, Palpation: tenderness, that is moderate, of the anterior aspect of right upper chest, right lateral anterior chest, right lateral posterior chest and right breast. 01:02 Musculoskeletal/extremity: ROM: limited active range of motion due to pain, limited passive range of motion due to pain, in the right arm and right leg, Circulation is intact in all extremities. Sensation intact. Compartment Syndrome exam of affected extremity: is normal. DVT Exam: no pain, negative Homans' sign noted on exam, no appreciated bluish discoloration, no erythema, no increased warmth, pain, swelling, tenderness. 02:08 ECG was reviewed by the Attending Physician. [facility] Vital Signs: 00:46 BP 189 / 97; Pulse 88; Resp 20; Temp 98.1; Pulse Ox 99% on R/A; Weight 76.2 kg (M); kl Height 5 ft. 7 in. ; Pain 10/10; 01:00 BP 181 / 71; Pulse 58; Resp 16; Pulse Ox 100% ; vc1 02:00 BP 167 / 75; Pulse 66; Resp 16; Pulse Ox 97% on R/A; vc1 02:52 BP 140 / 99; Pulse 65; Resp 15; Pulse Ox 100% on R/A; vc1 03:30 BP 149 / 73; Pulse 63; Resp 13; Pulse Ox 98% on R/A; vc1 04:00 BP 118 / 84; Pulse 63; Resp 17; Pulse Ox 98% on R/A; vc1 04:30 BP 146 / 69; Pulse 62; Resp 19; Pulse Ox 97% on R/A; vc1 05:00 BP 138 / 74; Pulse 61; Resp 15; Pulse Ox 97% on R/A; vc1 05:30 BP 142 / 74; Pulse 63; Resp 13; Pulse Ox 100% on R/A; vc1 00:46 Body Mass Index 26.31 (76.20 kg, 170.18 cm) 00:46 Pain Scale: Adult kl MDM: 00:46 Patient medically screened. [facility] 01:05 Differential diagnosis: intra-abdominal injury, closed head injury, cardiac contusion, alan extremity fracture, C spine fracture, T spine fracture, L spine fracture, dislocation, closed fracture. Differential diagnosis: closed head injury, contusion, fracture, laceration, multiple trauma, sprain, strain. Data reviewed: vital signs, nurses notes, lab test result(s), EKG, radiologic studies, CT scan, plain films. Consideration of Admission/Observation Escalation of care including admission/observation considered. I considered the following discharge prescriptions or medication management in the emergency department Medications were administered in the Emergency Department. See MAR. Test considered but Not performed: MRI: NO BRAIN MRI. Care significantly affected by the following chronic conditions: Hypertension, ETOH, NORCO USE. 12/24 00:49 Order name: Basic Metabolic Panel; Complete Time: 02:59 [facility] 12/24 00:49 Order name: CBC with Diff; Complete Time: 02:59 [facility] 12/24 00:49 Order name: Type And Screen; Complete Time: 02:59 [facility] 12/24 00:49 Order name: Urinalysis w/ reflexes; Complete Time: 02:59 [facility] 12/24 00:49 Order name: LFT's; Complete Time: 02:59 [facility] 12/24 00:49 Order name: Lipase; Complete Time: 02:59 [facility] 12/24 00:49 Order name: Acetaminophen; Complete Time: 02:59 [facility] 12/24 00:49 Order name: ETOH Level; Complete Time: 02:59 [facility] 12/24 00:49 Order name: PT-INR; Complete Time: 02:59 [facility] 12/24 00:49 Order name: Ptt, Activated; Complete Time: 02:59 [facility] 12/24 00:49 Order name: Salicylate; Complete Time: 02:59 [facility] 12/24 00:49 Order name: Urine Drug Screen; Complete Time: 02:59 [facility] 12/24 02:38 Order name: ABO/RH no charge; Complete Time: 02:59 [facility] 12/24 00:49 Order name: CT Traumagram (Head C Spine CAP W Con) [facility] 12/24 00:49 Order name: Knee Right 3 View XRAY [facility] 12/24 00:49 Order name: Foot Right 3 View XRAY [facility] 12/24 00:59 Order name: Chest Single View XRAY [facility] 12/24 01:37 Order name: INCENTIVE SPIROMETRY [facility] 12/24 00:49 Order name: EKG; Complete Time: 00:50 [facility] 12/24 00:49 Order name: Labs collected and sent; Complete Time: 01:57 [facility] 12/24 00:49 Order name: EKG - Nurse/Tech; Complete Time: 01:56 [facility] 12/24 00:49 Order name: IV Saline Lock; Complete Time: :56 [facility] EC:08 Rate is 65 beats/min. Rhythm is regular. QRS [place] is Normal. OR interval is normal. QRS alan interval is normal. QT interval is prolonged at 490 msec. No Q waves. T waves are Normal. No ST changes noted. Clinical impression: NSR w/ Non-specific ST/T Changes and No evidence of ischemia. Interpreted by me. Reviewed by me. 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 Exp: 01/01/2024. vc1 Lot #: [id number]. } Route: IM; Site: left deltoid; 02:30 Follow up: Response: (VIS) Vaccine information sheet provided today. Questions and/or vc1 concerns addressed. VIS edition date: Feb 26, 2021.; No adverse reaction 01:54 Drug: NS 0.9% IV 500 ml Route: IV; Rate: bolus; Site: right antecubital; vc1 02:30 Follow up: IV Status: Completed infusion; IV Intake: 500ml vc1 01:54 Drug: morphine IVP or IV 4 mg Route: IVP; Infused Over: 4 mins; Site: right antecubital;vc1 02:30 Follow up: Response: No adverse reaction; Pain is unchanged, physician notified vc1 01:54 Drug: Ondansetron IVP 4 mg Route: IVP; Site: right antecubital; vc1 02:30 Follow up: Response: No adverse reaction; Marked relief of symptoms vc1 04:08 Drug: Potassium PO Effervescent Tablet 25 mEq Route: PO; vc1 05:30 Follow up: Response: No adverse reaction vc1 04:08 Drug: HYDROmorphone IVP 0.5 mg Route: IVP; Site: right antecubital; vc1 04:30 Follow up: Response: No adverse reaction; Pain is unchanged, physician notified vc1 04:08 Drug: Ondansetron IVP 4 mg Route: IVP; Site: right antecubital; vc1 04:30 Follow up: Response: No adverse reaction; Marked relief of symptoms vc1 05:35 Drug: HYDROmorphone IVP 0.5 mg Route: IVP; Site: right antecubital; vc1 06:00 Follow up: Response: No adverse reaction; Pain is unchanged, physician notified vc1 06:17 Drug: fentaNYL Transdermal Patch (50 mcg/hr) 1 patches {Note: left deltoid.} Route: vc1 Transdermal; Site: affected area; Disposition Summary: 12/24/22 05:21 Discharge Ordered Location: Home alan Problem: new alan Symptoms: have improved alan Condition: Stable alan Diagnosis - Fall on same level, unspecified alan - Contusion of right back wall of thorax alan - Contusion of right front wall of thorax alan - Contusion of right knee alan - Contusion of right foot alan - Laceration without foreign body of right forearm alan - Hypokalemia alan - Multiple fractures of ribs alan Followup: aaln - With: Private Physician - When: 2 - 3 days - Reason: Recheck today's complaints, Continuance of care, Re-evaluation by your physician Followup: alan - With: Trevor Kay MD - When: 2 - 3 days - Reason: Recheck today's complaints, Re-evaluation by your physician Discharge Instructions: - Discharge Summary Sheet alan - Chest Wall Pain alan - Chest Contusion, Adult alan - Potassium Content of Foods alan - Rib Fracture alan - How to Use an Incentive Spirometer alan - Chest Wall Pain, Ihcj-ev-Syir alan - Chest Contusion, Adult, Tcjj-ah-Juib alan - Rib Fracture, Zjku-kp-Yyov alan - Hypokalemia alan - Blunt Chest Trauma alan Forms: - Medication Reconciliation Form alan - Thank You Letter alan - Antibiotic Education alan - Prescription Opioid Use alan Prescriptions: - diclofenac sodium 25 mg Oral tablet, delayed release (enteric coated) - take 1 tablet by ORAL route 4 times per day; 20 tablet; Refills: 0, Product alan Selection Permitted - Cyclobenzaprine 5 mg Oral Tablet - take 1 tablet by ORAL route 3 times per day As needed; 15 tablet; Refills: 0, alan Product Selection Permitted Signatures: Dispatcher [employer] Diane Vásquez RN RN kl Anderson, Corey, MD MD alan Calcote, Yisel, RN RN vc1 Corrections: (The following items were deleted from the chart) 01:22 00:50 Elbow Right 3 View+RAD.RAD.BRZ ordered. EDMS EDMS 01:56 00:49 Suicide Screening ([place]) ordered. alan vc1 02:09 02:08 Rate is 65 beats/min. Rhythm is regular. QRS [place] is Normal. OR interval is alan normal. QRS interval is normal. QT interval is normal. No Q waves. T waves are Normal. No ST changes noted. Clinical impression: NSR w/ Non-specific ST/T Changes and No evidence of ischemia. Interpreted by me. Reviewed by me. alan
[2022-12-24] MEDS ORDERED: FENTANYL 50 MCG/PATCH TD ONE (06:03)
[2022-12-24 06:51] VITALS: TEMP 98.1
[2022-12-24 07:00] VITALS: BP 142/74; O2SAT 100
--- NOTE | 2022-12-24 22:48 | RAD REPORT ---
EXAM DESCRIPTION: CT - Head C Spine Willie Yeung - 12/24/2022 6:46 am CLINICAL HISTORY: The patient is 62 years old and is Male; FALL [facility] MAIN TECHNIQUE: Axial computed tomography images of the head and cervical spine without intravenous contr ast, and axial computed tomography images of the chest, abdomen and pelvis with intravenous contrast. Sagittal and coronal reformatted images were created and reviewed. This CT exam was performed us ing one or more of the following dose reduction techniques: automated exposure control, adjustment of the mA and/or kV according to patient size, and/or use of iterative reconstruction technique. COMPARISON: 07/08/2019 CT head, C-spine, chest abdomen pelvis without contrast FINDINGS: HEAD: BRAIN: Prominent perivascular space versus remote lacunar infarct in the lateral right basal gangli a. Mild periventricular and deep white matter microangiopathic changes. No extra-axial fluid collection. No intracranial hemorrhage. No transtentorial herniation. No focal lee-white matter differentiation abnormality. MIDLINE SHIFT: No midline shift. ORBITS: Right lens replacement. CHEST: LUNGS: Unremarkable. No mass. No consolidation. PLEURAL SPACE: Unremarkable. No significant effusion. No pneumothorax. HEART: No cardiomegaly. No significant pericardial effusion. TRACHEA: Unremarkable. THYROID: Unremarkable. No enlarged or calcified nodules. ABDOMEN: LIVER: Unremarkable. No mass. GALLBLADDER AND BILE DUCTS: Unremarkable. No calcified stones. No ductal dilation. PANCREAS: Unremarkable. No ductal dilation. No mass. SPLEEN: Unremarkable. No splenomegaly. ADRENALS: 2 right-sided and one left-sided indeterminate 1 cm adrenal nodules (mean Hounsfield unit s 57), unchanged in size from reference. KIDNEYS AND URETERS: Retroaortic left renal vein. No enhancement abnormality. No hydronephrosis. No solid mass. STOMACH AND BOWEL: Mild sigmoid diverticulosis without evidence of acute diverticulitis. No obstruction. PELVIS: APPENDIX: No findings to suggest acute appendicitis. BLADDER: Unremarkable. No mass. REPRODUCTIVE: Unremarkable as visualized. C-SPINE, CHEST, ABDOMEN and PELVIS: INTRAPERITONEAL SPACE: No pneumoperitoneum. No significant abdominal pelvic free fluid. BONES/JOINTS: No vertebral body height loss. Dens is intact. No fracture or subluxation. No disloca tion. Craniocervical orientation is normal. Multilevel degenerative changes of the cervical spine with focal disc space loss at C6-7. Nondisplaced fractures of the left anterior lateral fifth through ninth ribs, new from refere nce exam. No fracture of the calvarium or visualized facial bones. No significant spinal canal stenosis. SOFT TISSUES: Mild bilateral gynecomastia. Tiny fat-containing umbilical hernia. VASCULATURE: Multivessel coronary artery calcifications, greatest in the LAD and first diagonal bra nch. LYMPH NODES: Unremarkable. No enlarged lymph nodes. IMPRESSION: 1. Nondisplaced fractures of the left anterior lateral fifth through ninth ribs, new f rom reference exam. Early callus formation suggests subacute chronicity. Recommend clinical correla tion for tenderness to palpation. 2. No acute intracranial or cervical spine abnormality. No acute abnormality of the abdomen or pelv is. No other acute chest findings. 3. Multivessel coronary artery calcifications, greatest in the LAD and first diagonal branch. 4. 2 right-sided and one left-sided indeterminate 1 cm adrenal nodules. Recommend comparison with p rior exams, if available, to evaluate for long-term stability. Otherwise, recommend further character ization by nonemergent adrenal mass protocol CT. Electronically signed by: Roderick Rose MD 12/24/2022 4:45 AM CDT Due to temporary technical issues with the PACS/Fluency reporting system, reports are being signed by the in house radiologists without review as a courtesy to insure prompt reporting. The interpreting radiologist is fully responsible for the content of the report.
--- NOTE | 2022-12-24 22:49 | RAD REPORT ---
EXAM DESCRIPTION: RAD - Chest Single View - 12/24/2022 1:21 am CLINICAL HISTORY: PAIN TECHNIQUE: Frontal view of the chest. COMPARISON: No relevant prior studies available. FINDINGS: Lungs: Unremarkable. No consolidation. Pleural space: Unremarkable. No pneumothorax. Heart: Unremarkable. No cardiomegaly. Mediastinum: Unremarkable. Bones/joints: Subacute to chronic left anterolateral 8th and 9th rib fractures. IMPRESSION: No acute disease. Electronically signed by: Farhan Elmore MD 12/24/2022 3:19 AM CDT Due to temporary technical issues with the PACS/Fluency reporting system, reports are being signed by the in house radiologists without review as a courtesy to insure prompt reporting. The interpreting radiologist is fully responsible for the content of the report.
--- NOTE | 2022-12-24 22:50 | RAD REPORT ---
EXAM DESCRIPTION: RAD - Foot Right 3 View - 12/24/2022 1:21 am CLINICAL HISTORY: PAIN TECHNIQUE: Frontal, lateral and oblique views of the right foot. COMPARISON: No relevant prior studies available. FINDINGS: Bones/joints: Unremarkable. No acute fracture. No dislocation. Soft tissues: Unremarkable. No radiopaque foreign body. IMPRESSION: No acute injury. Electronically signed by: Farhan Elmore MD 12/24/2022 3:12 AM CDT Due to temporary technical issues with the PACS/Fluency reporting system, reports are being signed by the in house radiologists without review as a courtesy to insure prompt reporting. The interpreting radiologist is fully responsible for the content of the report.
--- NOTE | 2022-12-24 22:52 | RAD REPORT ---
EXAM DESCRIPTION: RAD - Knee Right 3 View - 12/24/2022 1:21 am CLINICAL HISTORY: PAIN TECHNIQUE: Three views of the right knee. COMPARISON: No relevant prior studies available. FINDINGS: Bones/joints: Unremarkable. No acute fracture. No dislocation. Soft tissues: Multiple metallic fragments project over the mid lower leg on the lateral view. Vasculature: Atherosclerotic disease. IMPRESSION: No acute injury. Electronically signed by: Farhan Elmore MD 12/24/2022 3:09 AM CDT Due to temporary technical issues with the PACS/Fluency reporting system, reports are being signed by the in house radiologists without review as a courtesy to insure prompt reporting. The interpreting radiologist is fully responsible for the content of the report.
--- NOTE | 2022-12-25 14:19 | EKG ---
Test Date: 2022-12-24 Test Time: 01:45:58 Mixing Operator: TOMMIE MEASUREMENT RESULTS: Intervals: Rate: 65 GA: 148 QRSD: 78 QT: 472 QTc: 490 [place]: P: 88 GA: 148 QRS: 48 T: 84 INTERPRETIVE STATEMENTS: Normal sinus rhythm Prolonged QT Abnormal ECG Compared to ECG 07/11/2022 07:57:36 Prolonged QT interval now present Electronically Signed On 12-25-22 14:17:15 CDT by Francesco Brown
== END 2022-12-24 06:46 | disposition home or self-care (01) ==
LOC: ER 00:39
DX: S22.41XA Multiple fractures of ribs, right side, initial encounter for closed fracture (principal); S51.811A Laceration without foreign body of right forearm, initial encounter; S20.221A Contusion of right back wall of thorax, initial encounter; S20.211A Contusion of right front wall of thorax, initial encounter; S80.01XA Contusion of right knee, initial encounter; S90.31XA Contusion of right foot, initial encounter; E87.6 Hypokalemia; W18.30XA Fall on same level, unspecified, initial encounter; Z23 Encounter for immunization; I10 Essential (primary) hypertension; Z88.8 Allergy status to other drugs, medicaments and biological substances; Z96.652 Presence of left artificial knee joint
CPT/HCPCS: 96361; 93005; 85025; 80048; 36415; 86900; 86850; 85610; 86901; 80076; 85730; 81003; 83690; 80307; 70450; 72125; 71260; 74177; 71045; 73630; 73562; 90471; 90714; 96375; 96374; 99284; 80143; 80179; 82077; Q9967; J1170 ×2; J2405 ×2; J7040

== ENCOUNTER 2023-01-31 02:44 | Emergency (ER) | payer BC ==
--- OUTSIDE RECORDS SUMMARY | 2023-01-31 02:56 | XMS REPORT | Continuity of Care Document ---
:[address] [facility] t Address [address] [place] [address] [place] [id number] Care Team Providers Name Role Phone Kayode Pereira MD Primary Care Physician CHAPARRO TRAN Attending Clinician Unavailable Kayode Pereira MD Attending Clinician Doctor Unassigned, [place] [facility] Attending Clinician Unavailable Pob, [facility] Main Attending Clinician Unavailable Ja Sparks MD Attending Clinician JA SPARKS Attending Clinician Unavailable KRISTEN AVENDAÑO Attending Clinician Unavailable Kristen Avendaño MD Attending Clinician [phone] KAYODE PEREIRA Attending Clinician Unavailable Susy Hernandez MD Attending [...] Cydney Alarcon DO Attending Clinician Lilia PAC, Tamera S Attending Clinician Ana PATRICIA, Carol East Attending Clinician Unavailable Isabel Fitzgerald DO Attending Clinician Roni Duffy DO Attending Clinician Diya YIP, Margarita Arriaga Attending Clinician Lab, [facility] Pob I Attending Clinician Unavailable JOSE ALFREDO CARVALHO Attending Clinician Unavailable JOSE ALFREDO CARVALHO Attending Clinician Unavailable Inga Galvan MD Attending Clinician INGA GALVAN Attending Clinician Unavailable Jose Alfredo Carvalho MD Attending Clinician Francis, [facility] Attending Clinician Unavailable Diane Mg Attending Clinician Samantha Cardozo Attending Clinician Chaparro Tran MD Attending Clinician Only, [facility] Test Attending Clinician Unavailable Addison Kim Attending Clinician Abram Alarcon Attending Clinician CHAPARRO TRAN Admitting Clinician Unavailable NOAH GUZMAN Admitting Clinician Unavailable CYDNEY ALARCON Admitting Clinician Unavailable Roni Duffy DO Admitting Clinician Chaparro Tran MD Admitting Clinician Payers Payer Name Policy Type Policy Number Effective Date Expiration Date S dennis [facility] FED [employer] [id number] 2005 00:00:00 Problems Condition Condition Condition Status Onset Resolution Last Treating Co mments Source Name Details Category Date Date Treatment Clinician Date Generalize Generalize Disease Active U nivers d anxiety d anxiety 1-13 ity of disorder disorder 00:00: [place] 00 Medical Branch 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 2-03 ity of of of 00:00: [place] unspecifie [...] TEAR/RUPTR OF OF Active 02/15/2016 MH OPID [place] Left Left Disease Active Univers shoulder shoulder [...] DRAMINE INGREDI 02-16 ity of HCL 00:00: Medical Branch DIPHENHY DRUG Active Other-Cmnt Univ ers DRAMINE INGREDI 02-16 ity of 00:00: Medical Branch Diphenhy Propensi Active Other - See Causes U nivers dramine ty to comments 02-16 him to be ity of adverse 00:00: tense and [place] reaction 00 funny Medical s feeling Branch in chest Social History Social Habit Start Date Stop Date Quantity Comments Source History of tobacco Chews Tobacco Uni versity of use [facility] Gender identity Universit y of [place] [facility] Sexual orientation Univer [facility] Alcohol intake 2022-10-19 2022-10-19 0 /d University of 00:00:00 00:00:00 [facility] Exposure to 2022-10-08 2022-10-18 Not sure [facility] SARS-CoV-2 (event) 00:00:00 09:23:00 [facility] History of Social 2022-07-21 2022-07-21 Univers ity of function 00:00:00 00:00:00 [facility] Tobacco use and 2016-02-08 2016-02-08 User of Universit y of exposure 00:00:00 00:00:00 smokeless [facility] Sex Ass[birth year] Universit y of 00:00:00 00:00:00 [place] [facility] Smoking Status Start Date Stop Date Source Never smoked tobacco [facility] Medications Ordered Filled Start Stop Current Ordering Indication Dosage Frequency Signature Comments Components Source Medication Medication Date Date Medication? Clinician (SIG) Name Name PROPRANOLOL Yes [id number] TAKE 1 Univers 20 mg 7-10 TABLET BY ity of tablet 00:00: MOUTH IN [place] 00 THE Medical MORNING Branch AND IN THE EVENING HYDROcodone Yes [id number] 1{tbl} Take 1 Un soco -acetaminop 6-25 tablet by ity of hen 5-325 00:00: mouth [place] mg tablet 00 every 6 Medical (six) Branch hours as needed for Pain (scale 4-6). Indication s: chronic pain HYDROcodone Yes [id number] 1{tbl} Take 1 Un [facility] -acetaminop 6-25 tablet by ity of hen 5-325 00:00: mouth [place] mg tablet 00 every 6 Medical (six) Branch hours as needed for Pain (scale 4-6). Indication s: chronic pain sumatriptan Yes [id number] 100mg Take 1 Univers (IMITREX) 5-25 tablet by ity o f 100 mg 00:00: mouth as [place] tablet 00 needed for Medical Migraine. Branch May repeat the dose 2 hours after first dose. Do not take more than 200 mg in any 24-hour period sumatriptan 2023-0 Yes [id number] 100mg Take 1 Univers (IMITREX) 5-25 tablet by ity o f 100 mg 00:00: mouth as [place] tablet 00 needed for Medical Migraine. Branch May repeat the dose 2 hours after first dose. Do not take more than 200 mg in any 24-hour period sumatriptan 2023-0 Yes [id number] 100mg Take 1 Univers (IMITREX) 5-25 tablet by ity o f 100 mg 00:00: mouth as [place] tablet 00 needed for Medical Migraine. Branch May repeat the dose 2 hours after first dose. Do not take more than 200 mg in any 24-hour period sumatriptan 2023-0 Yes [id number] 100mg Take 1 Univers (IMITREX) 5-25 tablet by ity o f 100 mg 00:00: mouth as [place] tablet 00 needed for Medical Migraine. Branch May repeat the dose 2 hours after first dose. Do not take more than 200 mg in any 24-hour period sumatriptan 2023-0 Yes [id number] 100mg Take 1 Univers (IMITREX) 5-25 tablet by ity o f 100 mg 00:00: mouth as [place] tablet 00 needed for Medical Migraine. Branch May repeat the dose 2 hours after first dose. Do not take more than 200 mg in any 24-hour period sumatriptan 2023-0 Yes [id number] 100mg Take 1 Univers (IMITREX) 5-25 tablet by ity o f 100 mg 00:00: mouth as [place] tablet 00 needed for Medical Migraine. Branch May repeat the dose 2 hours after first dose. Do not take more than 200 mg in any 24-hour period sumatriptan 2023-0 Yes [id number] 100mg Take 1 Univers (IMITREX) 5-25 tablet by ity o f 100 mg 00:00: mouth as [place] tablet 00 needed for Medical Migraine. Branch May repeat the dose 2 hours after first dose. Do not take more than 200 mg in any 24-hour period sumatriptan 2023-0 Yes [id number] 100mg Take 1 Univers (IMITREX) 5-25 tablet by ity o f 100 mg 00:00: mouth as [place] tablet 00 needed for Medical Migraine. Branch May repeat the dose 2 hours after first dose. Do not take more than 200 mg in any 24-hour period sumatriptan 2022- No [id number] 100mg Take 1 Univers (IMITREX) 5-25 05-25 [...] Indication s: chronic pain zolpidem 10 Yes [id number] 10mg Take 1 Univers mg tablet 5-24 tablet by ity o f 00:00: mouth at [place] 00 bedtime as Medical needed for Branch Insomnia. sumatriptan Yes [id number] 100mg Take 1 Univers (IMITREX) 5-24 tablet [...] Indication s: chronic pain zolpidem 10 Yes [id number] 10mg Take 1 Univers mg tablet 5-24 [...] Indication s: chronic pain zolpidem 10 Yes [id number] 10mg Take 1 Univers mg tablet 5-24 [...] Indication s: chronic pain zolpidem 10 Yes [id number] 10mg Take 1 Univers mg tablet 5-24 [...] Indication s: chronic pain zolpidem 10 Yes [id number] 10mg Take 1 Univers mg tablet 5-24 [...] Indication s: chronic pain zolpidem 10 Yes [id number] 10mg Take 1 Univers mg tablet 5-24 [...] Indication s: chronic pain zolpidem 10 Yes [id number] 10mg Take 1 Univers mg tablet 5-24 tablet by ity o f 00:00: mouth at [place] 00 bedtime as Medical needed for Branch Insomnia. zolpidem 10 Yes [id number] 10mg Take 1 Univers mg tablet 5-24 tablet by ity o f 00:00: mouth at [place] 00 bedtime as Medical needed for Branch Insomnia. zolpidem 10 Yes [id number] 10mg Take 1 Univers mg tablet 5-24 tablet by ity o f 00:00: mouth at [place] 00 bedtime as Medical needed for Branch Insomnia. HYDROcodone 2022- No 2745 1{tbl} Take 1 U nivers -acetaminop 5-24 06-25 tablet by it y of hen 5-325 00:00: 00:00 mouth [place] mg tablet 00 :00 every 6 Medical (six) Branch hours as needed for Pain (scale 4-6). Indication s: chronic pain sumatriptan 2022- No [id number] 100mg Take 1 Univers (IMITREX) 5-24 05-25 tablet by ity of 100 mg 00:00: 00:00 mouth as [place] tablet 00 :00 needed for Medical Migraine. Branch sumatriptan 2022- No [id number] 100mg Take 1 Univers (IMITREX) 5-24 05-25 tablet by ity of 100 mg 00:00: 00:00 mouth as [place] tablet 00 :00 needed for Medical Migraine. Branch HYDROCHLORO 0 Yes [id number] 12.5mg TAKE 1 Univers THIAZIDE 4-26 TABLET BY ity of 12.5 mg 00:00: MOUTH [place] tablet 00 EVERY Medical MORNING Branch HYDROCHLORO 2022-0 Yes [id number] 12.5mg TAKE 1 Univers THIAZIDE 4-26 TABLET BY ity of 12.5 mg 00:00: MOUTH [place] tablet 00 EVERY Medical MORNING Branch HYDROCHLORO 2022-0 Yes [id number] 12.5mg TAKE 1 Univers THIAZIDE 4-26 TABLET BY ity of 12.5 mg 00:00: MOUTH [place] tablet 00 EVERY Medical MORNING Branch HYDROCHLORO 2022-0 Yes [id number] 12.5mg TAKE 1 Univers THIAZIDE 4-26 TABLET BY ity of 12.5 mg 00:00: MOUTH [place] tablet 00 EVERY Medical MORNING Branch HYDROCHLORO 2022-0 Yes [id number] 12.5mg TAKE 1 Univers THIAZIDE 4-26 TABLET BY ity of 12.5 mg 00:00: MOUTH [place] tablet 00 EVERY Medical MORNING Branch HYDROCHLORO 2022-0 Yes [id number] 12.5mg TAKE 1 Univers THIAZIDE 4-26 TABLET BY ity of 12.5 mg 00:00: MOUTH [place] tablet 00 EVERY Medical MORNING Branch HYDROCHLORO 2022-0 Yes [id number] 12.5mg TAKE 1 Univers THIAZIDE 4-26 TABLET BY ity of 12.5 mg 00:00: MOUTH [place] tablet 00 EVERY Medical MORNING Branch HYDROCHLORO 2022-0 Yes [id number] 12.5mg TAKE 1 Univers THIAZIDE 4-26 TABLET BY ity of 12.5 mg 00:00: MOUTH [place] tablet 00 EVERY Medical MORNING Branch HYDROCHLORO 2022-0 Yes [id number] 12.5mg TAKE 1 Univers THIAZIDE 4-26 TABLET BY ity of 12.5 mg 00:00: MOUTH [place] tablet 00 EVERY Medical MORNING Branch HYDROCHLORO 2022-0 Yes [id number] 12.5mg TAKE 1 Univers THIAZIDE 4-26 TABLET BY ity of 12.5 mg 00:00: MOUTH [place] tablet 00 EVERY Medical MORNING Branch HYDROCHLORO 2022-0 Yes [id number] 12.5mg TAKE 1 Univers THIAZIDE 4-26 TABLET BY ity of 12.5 mg 00:00: MOUTH [place] tablet 00 EVERY Medical MORNING Branch HYDROCHLORO 2022-0 Yes [id number] 12.5mg TAKE 1 Univers THIAZIDE 4-26 TABLET BY ity of 12.5 mg 00:00: MOUTH [place] tablet 00 EVERY Medical MORNING Branch HYDROcodone 2022-0 Yes [id number] 1{tbl} Take 1 Un [facility] -acetaminop 4-17 tablet by ity of hen 5-325 00:00: mouth [place] mg tablet 00 every 6 Medical (six) Branch hours as needed for Pain (scale 4-6). Indication s: chronic pain zolpidem 10 2022-0 Yes [id number] 10mg Take 1 Univers mg tablet 4-17 tablet by ity o f 00:00: mouth at [place] 00 bedtime as Medical needed for Branch Insomnia. sumatriptan Yes [id number] 100mg Take 1 Univers (IMITREX) 4-17 tablet by ity o f 100 mg 00:00: mouth as [place] tablet 00 needed for Medical Migraine. Branch HYDROcodone 2022-0 Yes [id number] 1{tbl} Take 1 Un [facility] -acetaminop 4-17 tablet by ity of hen 5-325 00:00: mouth [place] mg tablet 00 every 6 Medical (six) Branch hours as needed for Pain (scale 4-6). Indication s: chronic pain zolpidem 10 0 Yes [id number] 10mg Take 1 Univers mg tablet 4-17 tablet by ity o f 00:00: mouth at [place] 00 bedtime as Medical needed for Branch Insomnia. sumatriptan Yes [id number] 100mg Take 1 Univers (IMITREX) 4-17 tablet [...] Indication s: chronic pain zolpidem 10 Yes [id number] 10mg Take 1 Univers mg tablet 4-17 tablet by ity o f 00:00: mouth at [place] 00 bedtime as Medical needed for Branch Insomnia. sumatriptan Yes [id number] 100mg Take 1 Univers (IMITREX) 4-17 tablet [...] s: chronic pain zolpidem 10 2022- No [id number] 10mg Take 1 Univers mg tablet 4-17 05-24 tablet by ity of 00:00: 00:00 mouth at [place] 00 :00 bedtime as Medical needed for Branch Insomnia. sumatriptan 2022- No [id number] 100mg Take 1 Univers (IMITREX) 4-17 05-24 tablet by ity of 100 mg 00:00: 00:00 mouth as [place] tablet 00 :00 needed for Medical Migraine. Branch vitamin 2022-0 Yes 500ug Take 1 Univers B-12 500 3-29 tablet by ity of mcg tablet 09:31: mouth once [place] 27 every Medical month. Branch vitamin 2022-0 Yes 500ug Take 1 Univers B-12 500 [...] [place] 27 every Medical month. Branch vitamin 2022-0 Yes 500ug Take 1 Univers B-12 500 3-29 tablet by ity of mcg tablet 09:31: mouth once [place] 27 every Medical month. Branch fluticasone 2022-0 Yes [id number] 1{spray Use 1 Univers propionate 3-29 } [place] in it o 50 00:00: each [place] mcg/actuati 00 nostril in Me dical on nasal the Branch spray morning. fluticasone 2022-0 Yes [id number] 1{spray Use 1 Univers propionate 3-29 } [place] in it o 50 00:00: each [place] mcg/actuati 00 nostril in Me dical on nasal the Branch spray morning. fluticasone 2022-0 Yes [id number] 1{spray Use 1 Univers propionate 3-29 } [place] in it o 50 00:00: each [place] mcg/actuati 00 nostril in Me dical on nasal the Branch spray morning. fluticasone 2022-0 Yes [id number] 1{spray Use 1 Univers propionate 3-29 } [place] in it o 50 00:00: each [place] mcg/actuati 00 nostril in Me dical on nasal the Branch spray morning. fluticasone 2022-0 Yes [id number] 1{spray Use 1 Univers propionate 3-29 } [place] in it o f 50 00:00: each [place] mcg/actuati 00 nostril in Me dical on nasal the Branch spray morning. fluticasone 2022-0 Yes [id number] 1{spray Use 1 Univers propionate 3-29 } [place] in it o 50 00:00: each [place] mcg/actuati 00 nostril in Me dical on nasal the Branch spray morning. fluticasone 2022-0 Yes [id number] 1{spray Use 1 Univers propionate 3-29 } [place] in it o f 50 00:00: each [place] mcg/actuati 00 nostril in Me dical on nasal the Branch spray morning. fluticasone 2022-0 Yes [id number] 1{spray Use 1 Univers propionate 3-29 } [place] in it o f 50 00:00: each [place] mcg/actuati 00 nostril in Me dical on nasal the Branch spray morning. fluticasone 0 Yes [id number] 1{spray Use 1 Univers propionate 3-29 } [place] in ity o f 50 00:00: each [place] mcg/actuati 00 nostril in Me dical on nasal the Branch spray morning. fluticasone 2022-0 Yes [id number] 1{spray Use 1 Univers propionate 3-29 } [place] in it o f 50 00:00: each [place] mcg/actuati 00 nostril in Me dical on nasal the Branch spray morning. fluticasone 0 Yes [id number] 1{spray Use 1 Univers propionate 3-29 } [place] in ity o f 50 00:00: each [place] mcg/actuati 00 nostril in Me dical on nasal the Branch spray morning. fluticasone 0 Yes [id number] 1{spray Use 1 Univers propionate 3-29 } [place] in it o 50 00:00: each [place] mcg/actuati 00 nostril in Me dical on nasal the Branch spray morning. fluticasone 0 Yes [id number] 1{spray Use 1 Univers propionate 3-29 } [place] in it o 50 00:00: each [place] mcg/actuati 00 nostril in Me dical on nasal the Branch spray morning. fluticasone 0 Yes [id number] 1{spray Use 1 Univers propionate 3-29 } [place] in it o 50 00:00: each [place] mcg/actuati 00 nostril in Me dical on nasal the Branch spray morning. fluticasone 0 Yes [id number] 1{spray Use 1 Univers propionate 3-29 } [place] in [facility] o 50 00:00: each [place] mcg/actuati 00 nostril in Me dical on nasal the Branch spray morning. triamcinolo 2022- No [id number] 40mg Univers ne 10-18- ity of acetonide 16:00: 15:11 [place] (KENALOG) 00 :00 Medical injection Branch 40 mg triamcinolo 2022- No [id number] 40mg 40 mg, Univers ne 10-18-28 Intramuscu ity of acetonide 16:00: 15:11 [place], ONCE, [place] (KENALOG) 00 :00 1 dose, On Medi dyan injection Tue Branch 40 mg 10/18/22 at 1100, Routine triamcinolo 2022-0 2022- No [id number] 40mg Univers ne 10-18 ity of acetonide 16:00: 15:11 [place] (KENALOG) 00 :00 Medical injection Branch 40 mg triamcinolo 0 2022- No [id number] 40mg 40 mg, Univers ne 10-18 Intramuscu ity of acetonide 16:00: 15:11 [place], ONCE, [place] (KENALOG) 00 :00 1 dose, On Medi dyan injection Tue Branch 40 mg 10/18/22 at 1100, Routine methylPREDN 2022-0 2022- No [id number] 80mg Univers ISolone 10-18 ity of acetate 15:45: 15:10 [place] (DEPO-MEDRO 00 :00 Medical L) Branch injection 80 mg methylPREDN 0 2022- No [id number] 80mg 80 mg, Univers ISolone 10-18 Intramuscu ity o f acetate 15:45: 15:10 [place], ONCE, [place] (DEPO-MEDRO 00 :00 1 dose, On Me dical L) Tue Branch injection 10/18/22 at 80 mg 1045, Routine methylPREDN 2022- No [id number] 80mg Univers ISolone 10-18 ity of acetate 15:45: 15:10 [place] (DEPO-MEDRO 00 :00 Medical L) Branch injection 80 mg methylPREDN 2022- No [id number] 80mg 80 mg, Univers ISolone 10-18 Intramuscu ity o f acetate 15:45: 15:10 [place], ONCE, [place] (DEPO-MEDRO 00 :00 1 dose, On Me dical L) Tue Branch injection 10/18/22 at 80 mg 1045, Routine HYDROcodone 0 Yes [id number] 1{tbl} Take 1 [...] Indication s: chronic pain PROPRANOLOL 2023-0 Yes [id number] TAKE 1 Univers 20 mg 3-27 TABLET BY ity of tablet 00:00: MOUTH IN [place] 00 THE Medical MORNING Branch AND IN THE EVENING HYDROcodone 2022-0 Yes [id number] 1{tbl} Take 1 Un [facility]o -acetaminop 3-27 tablet by ity of hen 5-325 00:00: mouth [place] mg tablet 00 every 6 Medical (six) Branch hours as needed for Pain (scale 4-6). Indication s: chronic pain PROPRANOLOL 3-0 Yes [id number] TAKE 1 Univers 20 mg 3-27 TABLET BY ity of tablet 00:00: MOUTH IN [place] 00 THE Medical MORNING Branch AND IN THE EVENING HYDROcodone 2022-0 Yes [id number] 1{tbl} Take 1 Un soco -acetaminop 3-27 tablet by ity of hen 5-325 00:00: mouth [place] mg tablet 00 every 6 Medical (six) Branch hours as needed for Pain (scale 4-6). Indication s: chronic pain PROPRANOLOL 3-0 Yes [id number] TAKE 1 Univers 20 mg 3-27 TABLET BY ity of tablet 00:00: MOUTH IN [place] 00 THE Medical MORNING Branch AND IN THE EVENING HYDROcodone 2022-0 Yes [id number] 1{tbl} Take 1 Un soco -acetaminop 3-27 tablet by ity of hen 5-325 00:00: mouth [place] mg tablet 00 every 6 Medical (six) Branch hours as needed for Pain (scale 4-6). Indication s: chronic pain PROPRANOLOL 2023-0 Yes [id number] TAKE 1 Univers 20 mg 3-27 TABLET BY ity of tablet 00:00: MOUTH IN [place] 00 THE Medical MORNING Branch AND IN THE EVENING HYDROcodone 3-0 Yes [id number] 1{tbl} Take 1 Un [facility] -acetaminop 3-27 tablet by ity of hen 5-325 00:00: mouth [place] mg tablet 00 every 6 Medical (six) Branch hours as needed for Pain (scale 4-6). Indication s: chronic pain PROPRANOLOL 2023-0 Yes [id number] TAKE 1 Univers 20 mg 3-27 TABLET BY ity of tablet 00:00: MOUTH IN [place] 00 THE Medical MORNING Branch AND IN THE EVENING PROPRANOLOL 3-0 Yes [id number] TAKE 1 Univers 20 mg 3-27 TABLET BY ity of tablet 00:00: MOUTH IN [place] 00 THE Medical MORNING Branch AND IN THE EVENING PROPRANOLOL 2022-0 Yes [id number] TAKE 1 [facility] 20 mg 3-27 TABLET BY ity of tablet 00:00: MOUTH IN [place] 00 THE Medical MORNING Branch AND IN THE EVENING PROPRANOLOL 2022-0 Yes [id number] TAKE 1 [facility] 20 mg 3-27 TABLET BY ity of tablet 00:00: MOUTH IN [place] 00 THE Medical MORNING Branch AND IN THE EVENING PROPRANOLOL 2022-0 Yes [id number] TAKE 1 [facility] 20 mg 3-27 TABLET BY ity of tablet 00:00: MOUTH IN [place] 00 THE Medical MORNING Branch AND IN THE EVENING PROPRANOLOL 2022-0 Yes [id number] TAKE 1 [facility] 20 mg 3-27 TABLET BY ity of tablet 00:00: MOUTH IN [place] 00 THE Medical MORNING Branch AND IN THE EVENING PROPRANOLOL 2022-0 Yes [id number] TAKE 1 [facility] 20 mg 3-27 TABLET BY ity of tablet 00:00: MOUTH IN [place] 00 THE Medical MORNING Branch AND IN THE EVENING PROPRANOLOL 2022-0 Yes [id number] TAKE 1 [facility] 20 mg 3-27 TABLET BY ity of tablet 00:00: MOUTH IN [place] 00 THE Medical MORNING Branch AND IN THE EVENING PROPRANOLOL 2022-0 Yes [id number] TAKE 1 [facility] 20 mg 3-27 TABLET BY ity of tablet 00:00: MOUTH IN [place] 00 THE Medical MORNING Branch AND IN THE EVENING PROPRANOLOL 2022-0 Yes [id number] TAKE 1 [facility] 20 mg 3-27 TABLET BY ity of tablet 00:00: MOUTH IN [place] 00 THE Medical MORNING Branch AND IN THE EVENING PROPRANOLOL 3-0 Yes [id number] TAKE 1 [facility] 20 mg 3-27 TABLET BY ity of tablet 00:00: MOUTH IN [place] 00 THE Medical MORNING Branch AND IN THE EVENING PROPRANOLOL 2022-0 Yes [id number] TAKE 1 Univers 20 mg 3-27 TABLET BY ity of tablet 00:00: MOUTH IN [place] [address] THE Medical MORNING Branch AND IN THE EVENING PROPRANOLOL 2022-0 Yes [id number] TAKE 1 Univers 20 mg 3-27 TABLET BY ity of tablet 00:00: MOUTH IN [place] 00 THE Medical MORNING Branch AND IN THE EVENING PROPRANOLOL 2022-0 2023- No [id number] TAKE 1 Univers 20 mg 3-27 07-10 TABLET BY ity of tablet 00:00: 00:00 MOUTH IN [place] 00 :00 THE Medical MORNING Branch AND IN THE EVENING HYDROcodone 2022- No 2745 1{tbl} Take 1 U nivers -acetaminop 3-27 04-17 tablet by it y of hen 5-325 00:00: 00:00 mouth [place] mg tablet 00 :00 every 6 Medical (six) Branch hours as needed for Pain (scale 4-6). Indication s: chronic pain HYDROcodone 2022- Yes 2745 1{tbl} Take 1 Un [facility]o [...] (scale 4-6). Indication s: chronic pain hydrALAZINE 2022-0 Yes 25mg Take 1 Univ ers 25 mg 2-07 tablet by ity of tablet 00:00: mouth in [place] the morning Branch and 1 tablet at [...] by ity of tablet 00:00: mouth in [place] the morning. Branch hydrALAZINE 2023-0 Yes 25mg Take 1 Univ ers 25 mg 2-07 tablet by ity of tablet 00:00: mouth in [place] the morning Branch and 1 tablet at [...] by ity of tablet 00:00: mouth in [place] the morning. Branch hydrALAZINE 2023-0 Yes 25mg Take 1 Univ ers 25 mg 2-07 tablet by ity of tablet 00:00: mouth in [place] the morning Branch and 1 tablet at [...] by ity of tablet 00:00: mouth in [place] the morning. Branch hydrALAZINE 2023-0 Yes 25mg Take 1 Univ ers 25 mg 2-07 tablet by ity of tablet 00:00: mouth in [place] [address] the morning Branch and 1 tablet at [...] by ity of tablet 00:00: mouth in [place] the morning. Branch hydrALAZINE 2023-0 Yes 25mg Take 1 Univ ers 25 mg 2-07 tablet by ity of tablet 00:00: mouth in [place] the morning Branch and 1 tablet at [...] by ity of tablet 00:00: mouth in [place] the morning. Branch hydrALAZINE 2023-0 Yes 25mg Take 1 Univ ers 25 mg 2-07 tablet by ity of tablet 00:00: mouth in [place] the morning Branch and 1 tablet at [...] by ity of tablet 00:00: mouth in [place] the morning. Branch hydrALAZINE 2023-0 Yes 25mg Take 1 Univ ers 25 mg 2-07 tablet by ity of tablet 00:00: mouth in [place] [address] the morning Branch and 1 tablet at [...] by ity of tablet 00:00: mouth in [place] the morning. Branch hydrALAZINE 2023-0 Yes 25mg Take 1 Univ ers 25 mg 2-07 tablet by ity of tablet 00:00: mouth in [place] the morning Branch and 1 tablet at [...] by ity of tablet 00:00: mouth in [place] the morning. Branch hydrALAZINE 2023-0 Yes 25mg Take 1 Univ ers 25 mg 2-07 tablet by ity of tablet 00:00: mouth in [place] the morning Branch and 1 tablet at [...] by ity of tablet 00:00: mouth in [place] the morning. Branch hydrALAZINE 2023-0 Yes 25mg Take 1 Univ ers 25 mg 2-07 tablet by ity of tablet 00:00: mouth in [place] the morning Branch and 1 tablet at [...] by ity of tablet 00:00: mouth in [place] the morning. Branch hydrALAZINE 2023-0 Yes 25mg Take 1 Univ ers 25 mg 2-07 tablet by ity of tablet 00:00: mouth in [place] [address] the morning Branch and 1 tablet at [...] by ity of tablet 00:00: mouth in [place] the morning. Branch hydrALAZINE 2023-0 Yes 25mg Take 1 Univ ers 25 mg 2-07 tablet by ity of tablet 00:00: mouth in [place] the morning Branch and 1 tablet at [...] by ity of tablet 00:00: mouth in [place] the morning. Branch hydrALAZINE 2023-0 Yes 25mg Take 1 Univ ers 25 mg 2-07 tablet by ity of tablet 00:00: mouth in [place] the morning Branch and 1 tablet at [...] by ity of tablet 00:00: mouth in [place] the morning. Branch hydrALAZINE 2023-0 Yes 25mg Take 1 Univ ers 25 mg 2-07 tablet by ity of tablet 00:00: mouth in [place] [address] the morning Branch and 1 tablet at [...] by ity of tablet 00:00: mouth in [place] the morning. Branch hydrALAZINE 2023-0 Yes 25mg Take 1 Univ ers 25 mg 2-07 tablet by ity of tablet 00:00: mouth in [place] 00 the Medical morning Branch and 1 tablet at noon and 1 tablet in the evening. Take 1 tablet (25 mg total) by mouth in the morning and 1 tablet (25 mg total) in the evening and 1 tablet (25 mg total) before bedtime. Hold if top bp number is less than 110. Monitor bp and pulse as we discussed. SERTraline 2022-0 Yes 100mg Take 2 [facility] ers 50 mg 2-07 tablets by [facility] of tablet 00:00: mouth in [place] 00 the Medical morning. Branch HYDROcodone 2022-0 [...] 4-6). Indication s: chronic pain HYDROcodone 2023-0 3- No 2745 1{tbl} Take 1 U nivers -acetaminop 1-30 02-22 tablet by it y of hen 5-325 00:00: 00:00 mouth [place] mg tablet 00 :00 every 6 Medical (six) Branch hours as needed for Pain (scale 4-6). Indication s: chronic pain HYDROcodone 2023-0 3- No 2745 1{tbl} Take 1 [facility] nivers -acetaminop 1-30 02-22 tablet by it y of hen 5-325 00:00: 00:00 mouth [place] mg tablet 00 :00 every 6 Medical (six) Branch hours as needed for Pain (scale 4-6). Indication s: chronic pain sumatriptan 2023-0 Yes [id number] 100mg Take 1 [facility] (IMITREX) 1-23 tablet by ity o f 100 mg 00:00: mouth as [place] tablet 00 needed for Medical Migraine. Branch sumatriptan 2023-0 Yes [id number] 100mg Take 1 [facility] (IMITREX) 1-23 tablet by ity o f 100 mg 00:00: mouth as [place] tablet 00 needed for Medical Migraine. Branch sumatriptan 2023-0 Yes [id number] 100mg Take 1 [facility] (IMITREX) 1-23 tablet by ity o f 100 mg 00:00: mouth as [place] tablet 00 needed for Medical Migraine. Branch sumatriptan 3-0 Yes [id number] 100mg Take 1 [facility] (IMITREX) 1-23 tablet by ity o f 100 mg 00:00: mouth as [place] tablet 00 needed for Medical Migraine. Branch sumatriptan 3-0 Yes [id number] 100mg Take 1 [facility] (IMITREX) 1-23 tablet by ity o f 100 mg 00:00: mouth as [place] tablet 00 needed for Medical Migraine. Branch sumatriptan 3-0 Yes [id number] 100mg Take 1 [facility] (IMITREX) 1-23 tablet by ity o f 100 mg 00:00: mouth as [place] tablet 00 needed for Medical Migraine. Branch sumatriptan 2023-0 Yes [id number] 100mg Take 1 [facility] (IMITREX) 1-23 tablet by ity o f 100 mg 00:00: mouth as [place] tablet 00 needed for Medical Migraine. Branch sumatriptan 2023-0 Yes [id number] 100mg Take 1 [facility] (IMITREX) 1-23 tablet by ity o f 100 mg 00:00: mouth as [place] tablet 00 needed for Medical Migraine. Branch sumatriptan 2023-0 Yes [id number] 100mg Take 1 [facility] (IMITREX) 1-23 tablet by ity o f 100 mg 00:00: mouth as [place] tablet 00 needed for Medical Migraine. Branch sumatriptan 2023-0 Yes [id number] 100mg Take 1 [facility] (IMITREX) 1-23 tablet by ity o f 100 mg 00:00: mouth as [place] tablet 00 needed for Medical Migraine. Branch sumatriptan 2022-0 Yes [id number] 100mg Take 1 [facility] (IMITREX) 1-23 tablet by ity o f 100 mg 00:00: mouth as [place] tablet 00 needed for Medical Migraine. Branch sumatriptan 2022-0 Yes [id number] 100mg Take 1 [facility] (IMITREX) 1-23 tablet by ity o f 100 mg 00:00: mouth as [place] tablet 00 needed for Medical Migraine. Branch sumatriptan 2022-0 Yes [id number] 100mg Take 1 [facility] (IMITREX) 1-23 tablet by ity o f 100 mg 00:00: mouth as [place] tablet 00 needed for Medical Migraine. Branch sumatriptan 2022-0 Yes [id number] 100mg Take 1 [facility] (IMITREX) 1-23 tablet by ity o f 100 mg 00:00: mouth as [place] tablet 00 needed for Medical Migraine. Branch sumatriptan 2022-0 Yes [id number] 100mg Take 1 [facility] (IMITREX) 1-23 tablet by ity o f 100 mg 00:00: mouth as [place] tablet 00 needed for Medical Migraine. Branch sumatriptan 2022-0 Yes [id number] 100mg Take 1 [facility] (IMITREX) 1-23 tablet by ity o f 100 mg 00:00: mouth as [place] tablet 00 needed for Medical Migraine. Branch sumatriptan 2022-0 Yes [id number] 100mg Take 1 [facility] (IMITREX) 1-23 tablet by ity o f 100 mg 00:00: mouth as [place] tablet 00 needed for Medical Migraine. Branch sumatriptan 2022-0 Yes [id number] 100mg Take 1 [facility] (IMITREX) 1-23 tablet by ity o f 100 mg 00:00: mouth as [place] tablet 00 needed for Medical Migraine. Branch sumatriptan 2022-0 Yes [id number] 100mg Take 1 [facility] (IMITREX) 1-23 tablet by ity o f 100 mg 00:00: mouth as [place] tablet 00 needed for Medical Migraine. Branch sumatriptan 3-0 3- No [id number] 100mg Take 1 [facility] (IMITREX) 1-23 04-17 tablet by ity of 100 mg 00:00: 00:00 mouth as [place] tablet 00 :00 needed for Medical Migraine. Branch propranoloL 2021-07 Yes [id number] 20mg Take 1 [facility] 20 mg 2-29 tablet by ity of tablet 00:00: mouth in [place] 00 the Medical morning Branch and 1 tablet in the evening. sumatriptan 2021-07 Yes [id number] 100mg Take 1 [facility] (IMITREX) 2-29 tablet by ity o f 100 mg 00:00: mouth as [place] tablet 00 needed for Medical Migraine. Branch propranoloL 2021-07 Yes [id number] 20mg Take 1 [facility] 20 mg 2-29 tablet by ity of tablet 00:00: mouth in [place] 00 the Medical morning Branch and 1 tablet in the evening. sumatriptan 2021-07 Yes [id number] 100mg Take 1 [facility] (IMITREX) 2-29 tablet by ity o f 100 mg 00:00: mouth as [place] tablet 00 needed for Medical Migraine. Branch propranoloL 2021-07 Yes [id number] 20mg Take 1 [facility] 20 mg 2-29 tablet by ity of tablet 00:00: mouth in [place] 00 the Medical morning Branch and 1 tablet in the evening. sumatriptan 2021-07 Yes [id number] 100mg Take 1 [facility] (IMITREX) 2-29 tablet by ity o f 100 mg 00:00: mouth as [place] tablet 00 needed for Medical Migraine. Branch propranoloL 2021-07 Yes [id number] 20mg Take 1 [facility] 20 mg 2-29 tablet by ity of tablet 00:00: mouth in [place] 00 the Medical morning Branch and 1 tablet in the evening. sumatriptan 2021-07 Yes [id number] 100mg Take 1 [facility] (IMITREX) 2-29 tablet by ity o f 100 mg 00:00: mouth as [place] tablet 00 needed for Medical Migraine. Branch propranoloL 2021-07 Yes [id number] 20mg Take 1 [facility] 20 mg 2-29 tablet by ity of tablet 00:00: mouth in [place] 00 the Medical morning Branch and 1 tablet in the evening. sumatriptan 2021-07 Yes [id number] 100mg Take 1 [facility] (IMITREX) 2-29 tablet by ity o f 100 mg 00:00: mouth as [place] tablet 00 needed for Medical Migraine. Branch propranoloL 2021-07 Yes [id number] 20mg Take 1 [facility] 20 mg 2-29 tablet by ity of tablet 00:00: mouth in [place] 00 the Medical morning Branch and 1 tablet in the evening. propranoloL 2021-1 Yes [id number] 20mg Take 1 [facility] 20 mg 2-29 tablet by ity of tablet 00:00: mouth in [place] 00 the Medical morning Branch and 1 tablet in the evening. propranoloL 2022-1 Yes [id number] 20mg Take 1 [facility] 20 mg 2-29 tablet by ity of tablet 00:00: mouth in [place] 00 the Medical morning Branch and 1 tablet in the evening. propranoloL 2021-1 Yes [id number] 20mg Take 1 [facility] 20 mg 2-29 tablet by ity of tablet 00:00: mouth in [place] [address] the Medical morning Branch and 1 tablet in the evening. propranoloL 2021-1 Yes [id number] 20mg Take 1 [facility] 20 mg 2-29 tablet by ity of tablet 00:00: mouth in [place] [address] the Medical morning Branch and 1 tablet in the evening. propranoloL 2021-1 Yes [id number] 20mg Take 1 [facility] 20 mg 2-29 tablet by ity of tablet 00:00: mouth in [place] [address] the Medical morning Branch and 1 tablet in the evening. propranoloL 2021-1 Yes [id number] 20mg Take 1 [facility] 20 mg 2-29 tablet by ity of tablet 00:00: mouth in [place] [address] the Medical morning Branch and 1 tablet in the evening. propranoloL 2021-1 Yes [id number] 20mg Take 1 [facility] 20 mg 2-29 tablet by ity of tablet 00:00: mouth in [place] [address] the Medical morning [place] and 1 tablet in the evening. propranoloL 2021-1 Yes [id number] 20mg Take 1 [facility] 20 mg 2-29 tablet by ity of tablet 00:00: mouth in [place] [address] the Medical morning Branch and 1 tablet in the evening. propranoloL 2021-1 Yes [id number] 20mg Take 1 [facility] 20 mg 2-29 tablet by ity of tablet 00:00: mouth in [place] [address] the Medical morning Branch and 1 tablet in the evening. propranoloL 2022-1 Yes [id number] 20mg Take 1 [facility] 20 mg 2-29 tablet by ity of tablet 00:00: mouth in [place] [address] the Medical morning Branch and 1 tablet in the evening. propranoloL 2022-1 Yes [id number] 20mg Take 1 [facility] 20 mg 2-29 tablet by ity of tablet 00:00: mouth in [address] Medical morning [place] and 1 tablet in the evening. propranoloL 2021-07 Yes [id number] 20mg Take 1 [facility] 20 mg 2-29 tablet by ity of tablet 00:00: mouth in [place] 00 the Medical morning Branch and 1 tablet in the evening. propranoloL 2021-07 Yes [id number] 20mg Take 1 [facility] 20 mg 2-29 tablet by ity of tablet 00:00: mouth in [place] 00 the Medical morning Branch and 1 tablet in the evening. propranoloL 2021-07- No [id number] 20mg Take 1 [facility] 20 mg 2-29 - tablet by ity of tablet 00:00: 00:00 mouth in [place] 00 :00 the Medical morning Branch and 1 tablet in the evening. sumatriptan 2021-07- No [id number] 100mg Take 1 [facility] (IMITREX) 2-29 08-15 tablet by ity of 100 mg 00:00: 00:00 mouth as [place] tablet 00 :00 needed for Medical Migraine. Branch sumatriptan 2021-07- No [id number] 100mg Take 1 [facility] (IMITREX) 2-29 08-15 tablet by ity of 100 mg 00:00: [...] Indication s: chronic pain butalbital- 2021-07 Yes [id number] 1{capsu Take 1 [facility] aspirin-caf 2-23 le} capsule by it y of feine 00:00: mouth [place] (FIORINAL) 00 every 4 Medica l 50-325-40 (four) Branch mg per hours as capsule needed for Pain. butalbital2021-07 Yes [id number] 1{capsu Take 1 [facility] aspirin-caf 2-23 le} capsule by it y of feine 00:00: mouth [place] (FIORINAL) 00 every 4 Medica l 50-325-40 (four) Branch mg per hours as capsule needed for Pain. butalbital2021-07 Yes [id number] 1{capsu Take 1 [facility] aspirin-caf 2-23 le} capsule by it y of feine 00:00: mouth [place] (FIORINAL) 00 every 4 Medica l 50-325-40 (four) Branch mg per hours as capsule needed for Pain. butalbital2021-07 Yes [id number] 1{capsu Take 1 [facility] aspirin-caf 2-23 le} capsule by it y of feine 00:00: mouth [place] (FIORINAL) 00 every 4 Medica l 50-325-40 (four) Branch mg per hours as capsule needed for Pain. butalbital2021-07 Yes [id number] 1{capsu Take 1 [facility] aspirin-caf 2-23 le} capsule by it y of feine 00:00: mouth [place] (FIORINAL) 00 every 4 Medica l 50-325-40 (four) Branch mg per hours as capsule needed for Pain. butalbital2021-07 Yes [id number] 1{capsu Take 1 [facility] aspirin-caf 2-23 le} capsule by it y of feine 00:00: mouth [place] (FIORINAL) 00 every 4 Medica l 50-325-40 (four) Branch mg per hours as capsule needed for Pain. butalbital2021-07 Yes [id number] 1{capsu Take 1 [facility] aspirin-caf 2-23 le} capsule by it y of feine 00:00: mouth [place] (FIORINAL) 00 every 4 Medica l 50-325-40 (four) Branch mg per hours as capsule needed for Pain. butalbital- 2021-07 Yes [id number] 1{capsu Take 1 [facility] aspirin-caf 2-23 le} capsule by it y of feine 00:00: mouth [place] (FIORINAL) 00 every 4 Medica l 50-325-40 (four) Branch mg per hours as capsule needed for Pain. butalbital- 2021-07 Yes [id number] 1{capsu Take 1 [facility] aspirin-caf 2-23 le} capsule by it y of feine 00:00: mouth [place] (FIORINAL) 00 every 4 Medica l 50-325-40 (four) Branch mg per hours as capsule needed for Pain. butalbital2021-07 Yes [id number] 1{capsu Take 1 [facility] aspirin-caf 2-23 le} capsule by it y of feine 00:00: mouth [place] (FIORINAL) 00 every 4 Medica l 50-325-40 (four) Branch mg per hours as capsule needed for Pain. butalbital2021-07 Yes [id number] 1{capsu Take 1 [facility] aspirin-caf 2-23 le} capsule by it y of feine 00:00: mouth [place] (FIORINAL) 00 every 4 Medica l 50-325-40 (four) Branch mg per hours as capsule needed for Pain. butalbital2021-07 Yes [id number] 1{capsu Take 1 [facility] aspirin-caf 2-23 le} capsule by it y of feine 00:00: mouth [place] (FIORINAL) 00 every 4 Medica l 50-325-40 (four) Branch mg per hours as capsule needed for Pain. butalbital2021-07 Yes [id number] 1{capsu Take 1 [facility] aspirin-caf 2-23 le} capsule by it y of feine 00:00: mouth [place] (FIORINAL) 00 every 4 Medica l 50-325-40 (four) Branch mg per hours as capsule needed for Pain. butalbital2021-07 Yes [id number] 1{capsu Take 1 [facility] aspirin-caf 2-23 le} capsule by it y of feine 00:00: mouth [place] (FIORINAL) 00 every 4 Medica l 50-325-40 (four) Branch mg per hours as capsule needed for Pain. butalbital- 2021-07 Yes [id number] 1{capsu Take 1 [facility] aspirin-caf 2-23 le} capsule by it y of feine 00:00: mouth [place] (FIORINAL) 00 every 4 Medica l 50-325-40 (four) Branch mg per hours as capsule needed for Pain. butalbital- 2021-07 Yes [id number] 1{capsu Take 1 [facility] aspirin-caf 2-23 le} capsule by it y of feine 00:00: mouth [place] (FIORINAL) 00 every 4 Medica l 50-325-40 (four) Branch mg per hours as capsule needed for Pain. butalbital2021-07 Yes [id number] 1{capsu Take 1 [facility] aspirin-caf 2-23 le} capsule by it y of feine 00:00: mouth [place] (FIORINAL) 00 every 4 Medica l 50-325-40 (four) Branch mg per hours as capsule needed for Pain. butalbital2021-07 Yes [id number] 1{capsu Take 1 [facility] aspirin-caf 2-23 le} capsule by it y of feine 00:00: mouth [place] (FIORINAL) 00 every 4 Medica l 50-325-40 (four) Branch mg per hours as capsule needed for Pain. butalbital2021-07 Yes [id number] 1{capsu Take 1 [facility] aspirin-caf 2-23 le} capsule by it y of feine 00:00: mouth [place] (FIORINAL) 00 every 4 Medica l 50-325-40 (four) Branch mg per hours as capsule needed for Pain. butalbital2021-07 Yes [id number] 1{capsu Take 1 [facility] aspirin-caf 2-23 le} capsule by it y of feine 00:00: mouth [place] (FIORINAL) 00 every 4 Medica l 50-325-40 (four) Branch mg per hours as capsule needed for Pain. butalbital2021-07 Yes [id number] 1{capsu Take 1 [facility] aspirin-caf 2-23 le} capsule by it y of feine 00:00: mouth [place] (FIORINAL) 00 every 4 Medica l 50-325-40 (four) Branch mg per hours as capsule needed for Pain. albital- 2021-07 Yes [id number] 1{capsu Take 1 [facility] aspirin-caf 2-23 le} capsule by it y of feine 00:00: mouth [place] (FIORINAL) 00 every 4 Medica l 50-325-40 (four) Branch mg per hours as capsule needed for Pain. albital- 2021-07 Yes [id number] 1{capsu Take 1 [facility] aspirin-caf 2-23 le} capsule by it y of feine 00:00: mouth [place] (FIORINAL) 00 every 4 Medica l 50-325-40 (four) Branch mg per hours as capsule needed for Pain. albital2021-07 Yes [id number] 1{capsu Take 1 [facility] aspirin-caf 2-23 le} capsule by it y of feine 00:00: mouth [place] (FIORINAL) 00 every 4 Medica l 50-325-40 (four) Branch mg per hours as capsule needed for Pain. butalbital2021-07 Yes [id number] 1{capsu Take 1 [facility] aspirin-caf 2-23 le} capsule by it y of feine 00:00: mouth [place] (FIORINAL) 00 every 4 Medica l 50-325-40 (four) Branch mg per hours as capsule needed for Pain. butalbital2021-07 Yes [id number] 1{capsu Take 1 [facility] aspirin-caf 2-23 le} capsule by it y of feine 00:00: mouth [place] (FIORINAL) 00 every 4 Medica l 50-325-40 (four) Branch mg per hours as capsule needed for Pain. butalbital2021-07 Yes [id number] 1{capsu Take 1 [facility] aspirin-caf 2-23 le} capsule by it y of feine 00:00: mouth [place] (FIORINAL) 00 every 4 Medica l 50-325-40 (four) Branch mg per hours as capsule needed for Pain. butalbital2021-07 Yes [id number] 1{capsu Take 1 [facility] aspirin-caf 2-23 le} capsule by it y of feine 00:00: mouth [place] (FIORINAL) 00 every 4 Medica l 50-325-40 (four) Branch mg per hours as capsule needed for Pain. butalbital2021-07 Yes [id number] 1{capsu Take 1 [facility] aspirin-caf 2-23 le} capsule by it y of feine 00:00: mouth [place] (FIORINAL) 00 every 4 Medica l 50-325-40 (four) Branch mg per hours as capsule needed for Pain. albital2021-07 Yes [id number] 1{capsu Take 1 [facility] aspirin-caf 2-23 le} capsule by it y of feine 00:00: mouth [place] (FIORINAL) 00 every 4 Medica l 50-325-40 (four) Branch mg per hours as capsule needed for Pain. albital2021-07 Yes [id number] 1{capsu Take 1 [facility] aspirin-caf 2-23 le} capsule by it y of feine 00:00: mouth [place] (FIORINAL) 00 every 4 Medica l 50-325-40 (four) Branch mg per hours as capsule needed for Pain. butalbital2021-07 Yes [id number] 1{capsu Take 1 [facility] aspirin-caf 2-23 le} capsule by it y of feine 00:00: mouth [place] (FIORINAL) 00 every 4 Medica l 50-325-40 (four) Branch mg per hours as capsule needed for Pain. butalbital2021-07 Yes [id number] 1{capsu Take 1 [facility] aspirin-caf 2-23 le} capsule by it y of feine 00:00: mouth [place] (FIORINAL) 00 every 4 Medica l 50-325-40 (four) Branch mg per hours as capsule needed for Pain. butalbital2021-07 Yes [id number] 1{capsu Take 1 [facility] aspirin-caf 2-23 le} capsule by it y of feine 00:00: mouth [place] (FIORINAL) 00 every 4 Medica l 50-325-40 (four) Branch mg per hours as capsule needed for Pain. butalbital2021-07 Yes [id number] 1{capsu Take 1 [facility] aspirin-caf 2-23 le} capsule by it y of feine 00:00: mouth [place] (FIORINAL) 00 every 4 Medica l 50-325-40 (four) Branch mg per hours as capsule needed for Pain. butalbital- 2021-07 Yes [id number] 1{capsu Take 1 [facility] aspirin-caf 2-23 le} capsule by it y of feine 00:00: mouth [place] (FIORINAL) 00 every 4 Medica l 50-325-40 (four) Branch mg per hours as capsule needed for Pain. butalbital- 2021-07 Yes [id number] 1{capsu Take 1 [facility] aspirin-caf 2-23 le} capsule by it y of feine 00:00: mouth [place] (FIORINAL) 00 every 4 Medica l 50-325-40 (four) Branch mg per hours as capsule needed for Pain. butalbital2021-07 Yes [id number] 1{capsu Take 1 [facility] aspirin-caf 2-23 le} capsule by it y of feine 00:00: mouth [place] (FIORINAL) 00 every 4 Medica l 50-325-40 (four) Branch mg per hours as capsule needed for Pain. butalbital2021-07 Yes [id number] 1{capsu Take 1 [facility] aspirin-caf 2-23 le} capsule by it y of feine 00:00: mouth [place] (FIORINAL) 00 every 4 Medica l 50-325-40 (four) Branch mg per hours as capsule needed for Pain. butalbital2021-07 Yes [id number] 1{capsu Take 1 [facility] aspirin-caf 2-23 le} capsule by it y of feine 00:00: mouth [place] (FIORINAL) 00 every 4 Medica l 50-325-40 (four) Branch mg per hours as capsule needed for Pain. meloxicam 2021-07 Yes 7.5mg Take 7.5 [facility] vers 7.5 mg 2-20 mg by ity of tablet 00:00: mouth in [place] the Medical morning. Branch meloxicam 2021-07 Yes 7.5mg Take 7.5 [facility] vers 7.5 mg 2-20 mg by ity of tablet 00:00: mouth in [place] the Medical morning. Branch meloxicam 2021-07 Yes 7.5mg Take 7.5 [facility] vers 7.5 mg 2-20 mg by ity of tablet 00:00: mouth in [place] the Medical morning. Branch meloxicam 2021-07 Yes 7.5mg Take 7.5 [facility] vers 7.5 mg 2-20 mg by ity of tablet 00:00: mouth in [place] the Medical morning. Branch meloxicam 2021-07 Yes 7.5mg Take 7.5 [facility] vers 7.5 mg 2-20 mg by ity of tablet 00:00: mouth in [place] 00 the Medical morning. Branch meloxicam 2021-07 Yes 7.5mg Take 7.5 [facility] vers 7.5 mg 2-20 mg by ity of tablet 00:00: mouth in [place] the Medical morning. Branch meloxicam 2021-07 Yes 7.5mg Take 7.5 [facility] vers 7.5 mg 2-20 mg by ity of tablet 00:00: mouth in [place] the Medical morning. Branch meloxicam 2021-07 Yes 7.5mg Take 7.5 [facility] vers 7.5 mg 2-20 mg by ity of tablet 00:00: mouth in [place] the Medical morning. Branch meloxicam 2021-07 Yes 7.5mg Take 7.5 [facility] vers 7.5 mg 2-20 mg by ity of tablet 00:00: mouth in [place] the Medical morning. Branch meloxicam 2021-07 Yes 7.5mg Take 7.5 [facility] vers 7.5 mg 2-20 mg by ity of tablet 00:00: mouth in [place] the Medical morning. Branch meloxicam 2021-07 Yes 7.5mg Take 7.5 [facility] vers 7.5 mg 2-20 mg by ity of tablet 00:00: mouth in [place] the Medical morning. Branch meloxicam 2021-07 Yes 7.5mg Take 7.5 [facility] vers 7.5 mg 2-20 mg by ity of tablet 00:00: mouth in [place] the Medical morning. Branch meloxicam 2021-07 Yes 7.5mg Take 7.5 [facility] vers 7.5 mg 2-20 mg by ity of tablet 00:00: mouth in [place] 00 the Medical morning. Branch meloxicam 2021-07 Yes 7.5mg Take 7.5 [facility] vers 7.5 mg 2-20 mg by ity of tablet 00:00: mouth in [place] 00 the Medical morning. Branch meloxicam 2021-07 Yes 7.5mg Take 7.5 [facility] vers 7.5 mg 2-20 mg by ity of tablet 00:00: mouth in [place] the Medical morning. Branch meloxicam 2021-07 Yes 7.5mg Take 7.5 [facility] vers 7.5 mg 2-20 mg by ity of tablet 00:00: mouth in [place] the Medical morning. Branch meloxicam 2021-07 Yes 7.5mg Take 7.5 [facility] vers 7.5 mg 2-20 mg by ity of tablet 00:00: mouth in [place] the Medical morning. Branch meloxicam 2021-07 Yes 7.5mg Take 7.5 [facility] vers 7.5 mg 2-20 mg by ity of tablet 00:00: mouth in [place] the Medical morning. Branch meloxicam 2021-07 Yes 7.5mg Take 7.5 [facility] vers 7.5 mg 2-20 mg by ity of tablet 00:00: mouth in [place] the Medical morning. Branch meloxicam 2021-07 Yes 7.5mg Take 7.5 [facility] vers 7.5 mg 2-20 mg by ity of tablet 00:00: mouth in [place] the Medical morning. Branch meloxicam 2021-07 Yes 7.5mg Take 1 [facility] rs 7.5 mg 2-20 tablet by ity of tablet 00:00: mouth in [place] the Medical morning. Branch meloxicam 2021-07 Yes 7.5mg Take 1 [facility] rs 7.5 mg 2-20 tablet by ity of tablet 00:00: mouth in [place] the Medical morning. Branch meloxicam 2021-07 Yes 7.5mg Take 1 [facility] rs 7.5 mg 2-20 tablet by ity of tablet 00:00: mouth in [place] the Medical morning. Branch meloxicam 2021-07 Yes 7.5mg Take 1 [facility] rs 7.5 mg 2-20 tablet by ity of tablet 00:00: mouth in [place] the Medical morning. Branch meloxicam 2021-07 Yes 7.5mg Take 1 [facility] rs 7.5 mg 2-20 tablet by ity of tablet 00:00: mouth in [place] the Medical morning. Branch meloxicam 2021-07 Yes 7.5mg Take 1 [facility] rs 7.5 mg 2-20 tablet by ity of tablet 00:00: mouth in [place] the Medical morning. Branch meloxicam 2021-07 Yes 7.5mg Take 1 [facility] rs 7.5 mg 2-20 tablet by ity of tablet 00:00: mouth in [place] the Medical morning. Branch meloxicam 2021-07 Yes 7.5mg Take 1 [facility] rs 7.5 mg 2-20 tablet by ity of tablet 00:00: mouth in [place] the Medical morning. Branch meloxicam 2021-07 Yes 7.5mg Take 1 [facility] rs 7.5 mg 2-20 tablet by ity of tablet 00:00: mouth in [place] the Medical morning. Branch meloxicam 2021-07 Yes 7.5mg Take 1 [facility] rs 7.5 mg 2-20 tablet by ity of tablet 00:00: mouth in [place] the Medical morning. Branch meloxicam 2021-07 Yes 7.5mg Take 1 [facility] rs 7.5 mg 2-20 tablet by ity of tablet 00:00: mouth in [place] the Medical morning. Branch meloxicam 2021-07 Yes 7.5mg Take 1 [facility] rs 7.5 mg 2-20 tablet by ity of tablet 00:00: mouth in [place] the Medical morning. Branch meloxicam 2021-07 Yes 7.5mg Take 1 [facility] rs 7.5 mg 2-20 tablet by ity of tablet 00:00: mouth in [place] the Medical morning. Branch meloxicam 2021-07 Yes 7.5mg Take 1 [facility] rs 7.5 mg 2-20 tablet by ity of tablet 00:00: mouth in [place] the Medical morning. Branch meloxicam 2021-07 Yes 7.5mg Take 1 [facility] rs 7.5 mg 2-20 tablet by ity of tablet 00:00: mouth in [place] the Medical morning. Branch meloxicam 2021-07 Yes 7.5mg Take 1 [facility] rs 7.5 mg 2-20 tablet by ity of tablet 00:00: mouth in [place] the Medical morning. Branch meloxicam 2021-07 Yes 7.5mg Take 1 [facility] rs 7.5 mg 2-20 tablet by ity of tablet 00:00: mouth in [place] the Medical morning. Branch orphenadrin 2021-07 Yes TAKE 1 [facility] ers e 100 mg SR 2-16 TABLET BY ity of tablet 00:00: MOUTH [place] 00 TWICE Medical DAILY Branch NEEDED orphenadrin 2022- Yes TAKE 1 [facility] ers e 100 [...] 00 TWICE Medical DAILY Branch NEEDED orphenadrin 2- Yes TAKE 1 [facility] ers e 100 mg SR 2-16 TABLET BY ity of tablet 00:00: MOUTH [place] 00 TWICE Medical DAILY Branch NEEDED orphenadrin 2-1 Yes TAKE 1 [facility] ers e 100 mg SR 2-16 TABLET BY ity of tablet 00:00: MOUTH [place] 00 TWICE Medical DAILY Branch NEEDED orphenadrin 2- Yes TAKE 1 [facility] ers e 100 mg SR 2-16 TABLET BY ity of tablet 00:00: MOUTH [place] 00 TWICE Medical DAILY Branch NEEDED orphenadrin 2-1 Yes TAKE 1 [facility] ers e 100 [...] 00 TWICE Medical DAILY Branch NEEDED orphenadrin 2022- Yes TAKE 1 [facility] ers e 100 mg SR 2-16 TABLET BY ity of tablet 00:00: MOUTH [place] 00 TWICE Medical DAILY Branch NEEDED orphenadrin 2022- Yes TAKE 1 [facility] ers e 100 mg SR 2-16 TABLET BY ity of tablet 00:00: MOUTH [place] 00 TWICE Medical DAILY Branch NEEDED orphenadrin 2021- Yes TAKE 1 [facility] ers e 100 mg SR 2-16 TABLET BY ity of tablet 00:00: MOUTH [place] 00 TWICE Medical DAILY Branch NEEDED orphenadrin 202- Yes TAKE 1 [facility] ers e 100 [...] 00 TWICE Medical DAILY Branch NEEDED orphenadrin 2- Yes TAKE 1 [facility] ers e 100 [...] 00 TWICE Medical DAILY Branch NEEDED orphenadrin 2-1 Yes TAKE 1 [facility] ers e 100 mg SR 2-16 TABLET BY ity of tablet 00:00: MOUTH [place] 00 TWICE Medical DAILY Branch NEEDED orphenadrin 2022-1 Yes TAKE 1 [facility] ers e 100 mg SR 2-16 TABLET BY ity of tablet 00:00: MOUTH [place] 00 TWICE Medical DAILY Branch NEEDED orphenadrin 2021-07 Yes TAKE 1 [facility] ers e 100 mg SR 2-16 TABLET BY ity of tablet 00:00: MOUTH 00 TWICE Medical DAILY Branch NEEDED orphenadrin 2021-07 Yes TAKE 1 [facility] 100 mg SR 2-16 TABLET BY [facility] tablet 00:00: MOUTH 00 TWICE Medical DAILY Branch NEEDED orphenadrin 2021-07 Yes TAKE 1 [facility] 100 mg SR 2-16 TABLET BY [facility] tablet 00:00: MOUTH 00 TWICE Medical DAILY Branch NEEDED orphenadrin 2021-07 Yes TAKE 1 [facility] 100 mg SR 2-16 TABLET BY [facility] tablet 00:00: MOUTH 00 TWICE Medical DAILY Branch NEEDED orphenadrin 2021-07 Yes TAKE 1 [facility] 100 mg SR 2-16 TABLET BY [facility] tablet 00:00: MOUTH 00 TWICE Medical DAILY Branch NEEDED orphenadrin 2021-07 Yes TAKE 1 [facility] 100 mg SR 2-16 TABLET BY [facility] tablet 00:00: MOUTH 00 TWICE Medical DAILY Branch NEEDED orphenadrin 2021-07 Yes TAKE 1 [facility] 100 mg SR 2-16 TABLET BY [facility] tablet 00:00: MOUTH 00 TWICE Medical DAILY Branch NEEDED orphenadrin 2021-07 Yes TAKE 1 [facility] 100 mg SR 2-16 TABLET BY [facility] tablet 00:00: MOUTH 00 TWICE Medical DAILY Branch NEEDED orphenadrin 2021-07 Yes TAKE 1 [facility] 100 mg SR 2-16 TABLET BY [facility] tablet 00:00: MOUTH 00 TWICE Medical DAILY Branch NEEDED orphenadrin 2021- Yes TAKE 1 [facility] 100 mg SR 2-16 TABLET BY [facility] tablet 00:00: MOUTH 00 TWICE Medical DAILY Branch NEEDED orphenadrin 2021-07 Yes TAKE 1 [facility] 100 mg SR 2-16 TABLET BY [facility] tablet 00:00: MOUTH 00 TWICE Medical DAILY Branch NEEDED zolpidem 10 2021-07 Yes [id number] 10mg Take 1 [facility] mg tablet 1-22 tablet by [facility] f 00:00: mouth at [place] 00 bedtime as Medical needed for Branch Insomnia. HYDROcodone 2021-07 Yes [id number] 1{tbl} Take 1 [facility] -acetaminop 1-22 tablet by [facility] hen 5-325 00:00: mouth [place] mg tablet 00 every 6 Medical (six) Branch hours as needed for Pain (scale 4-6). Indication s: chronic pain zolpidem 2021-07 Yes [id number] 10mg Take 1 [facility] mg tablet 1-22 [...] Indication s: chronic pain zolpidem 2021-07 Yes [id number] 10mg Take 1 [facility] mg tablet 1-22 [...] Indication s: chronic pain zolpidem 2021-07 Yes [id number] 10mg Take 1 [facility] mg tablet 1-22 [...] Indication s: chronic pain zolpidem 2021-07 Yes [id number] 10mg Take 1 [facility] mg tablet 1-22 [...] Indication s: chronic pain zolpidem 2021-07 Yes [id number] 10mg Take 1 [facility] mg tablet 1-22 [...] Indication s: chronic pain zolpidem 2021-07 Yes [id number] 10mg Take 1 [facility] mg tablet 1-22 tablet by [facility] f 00:00: mouth at [place] 00 bedtime as Medical needed for Branch Insomnia. zolpidem 2021-07 Yes [id number] 10mg Take 1 [facility] mg tablet 1-22 tablet by [facility] f 00:00: mouth at [place] 00 bedtime as Medical needed for Branch Insomnia. zolpidem 2021-07 Yes [id number] 10mg Take 1 [facility] mg tablet 1-22 tablet by [facility] f 00:00: mouth at [place] 00 bedtime as Medical needed for Branch Insomnia. zolpidem 2021-07 Yes [id number] 10mg Take 1 [facility] mg tablet 1-22 tablet by [facility] f 00:00: mouth at [place] 00 bedtime as Medical needed for Branch Insomnia. zolpidem 2021-07 Yes [id number] 10mg Take 1 [facility] mg tablet 1-22 tablet by [facility] f 00:00: mouth at [place] 00 bedtime as Medical needed for Branch Insomnia. zolpidem 2021-07 Yes [id number] 10mg Take 1 [facility] mg tablet 1-22 tablet by [facility] f 00:00: mouth at [place] 00 bedtime as Medical needed for Branch Insomnia. zolpidem 2021-07 Yes [id number] 10mg Take 1 [facility] mg tablet 1-22 tablet by [facility] f 00:00: mouth at [place] 00 bedtime as Medical needed for Branch Insomnia. zolpidem 2021-07 Yes [id number] 10mg Take 1 [facility] mg tablet 1-22 tablet by [facility] f 00:00: mouth at [place] 00 bedtime as Medical needed for Branch Insomnia. zolpidem 2021-07 Yes [id number] 10mg Take 1 [facility] mg tablet 1-22 tablet by [facility] f 00:00: mouth at [place] 00 bedtime as Medical needed for Branch Insomnia. zolpidem 2021-07 Yes [id number] 10mg Take 1 [facility] mg tablet 1-22 tablet by [facility] f 00:00: mouth at [place] 00 bedtime as Medical needed for Branch Insomnia. zolpidem 2021-07 Yes [id number] 10mg Take 1 [facility] mg tablet 1-22 tablet by [facility] f 00:00: mouth at [place] 00 bedtime as Medical needed for Branch Insomnia. zolpidem 2021-07 Yes [id number] 10mg Take 1 [facility] mg tablet 1-22 tablet by [facility] f 00:00: mouth at [place] 00 bedtime as Medical needed for Branch Insomnia. zolpidem 2021-07 Yes [id number] 10mg Take 1 [facility] mg tablet 1-22 tablet by [facility] f 00:00: mouth at [place] 00 bedtime as Medical needed for Branch Insomnia. zolpidem 2021-07 Yes [id number] 10mg Take 1 [facility] mg tablet 1-22 tablet by [facility] f 00:00: mouth at [place] 00 bedtime as Medical needed for Branch Insomnia. zolpidem 2021-07 Yes [id number] 10mg Take 1 [facility] mg tablet 1-22 tablet by [facility] f 00:00: mouth at [place] 00 bedtime as Medical needed for Branch Insomnia. zolpidem 2021-07 Yes [id number] 10mg Take 1 [facility] mg tablet 1-22 tablet by [facility] f 00:00: mouth at [place] 00 bedtime as Medical needed for Branch Insomnia. zolpidem 2021-07 Yes [id number] 10mg Take 1 [facility] mg tablet 1-22 tablet by [facility] f 00:00: mouth at [place] 00 bedtime as Medical needed for Branch Insomnia. zolpidem 2021-07 Yes [id number] 10mg Take 1 [facility] mg tablet 1-22 tablet by [facility] f 00:00: mouth at [place] 00 bedtime as Medical needed for Branch Insomnia. zolpidem 2021-07 Yes [id number] 10mg Take 1 [facility] mg tablet 1-22 tablet by [facility] f 00:00: mouth at [place] 00 bedtime as Medical needed for Branch Insomnia. zolpidem 2021-07 Yes [id number] 10mg Take 1 [facility] mg tablet 1-22 tablet by [facility] f 00:00: mouth at [place] 00 bedtime as Medical needed for Branch Insomnia. zolpidem 2021-07 Yes [id number] 10mg Take 1 [facility] mg tablet 1-22 tablet by [facility] f 00:00: mouth at [place] 00 bedtime as Medical needed for Branch Insomnia. zolpidem 2021-07 Yes [id number] 10mg Take 1 [facility] mg tablet 1-22 tablet by [facility] f 00:00: mouth at [place] 00 bedtime as Medical needed for Branch Insomnia. zolpidem 2021-07 Yes [id number] 10mg Take 1 [facility] mg tablet 1-22 tablet by [facility] f 00:00: mouth at [place] 00 bedtime as Medical needed for Branch Insomnia. zolpidem 2021-07 Yes [id number] 10mg Take 1 [facility] mg tablet 1-22 tablet by [facility] f 00:00: mouth at [place] 00 bedtime as Medical needed for Branch Insomnia. zolpidem 2021-07 Yes [id number] 10mg Take 1 [facility] mg tablet 1-22 tablet by [facility] f 00:00: mouth at [place] 00 bedtime as Medical needed for Branch Insomnia. zolpidem 2021-07 Yes [id number] 10mg Take 1 [facility] mg tablet 1-22 tablet by [facility] f 00:00: mouth at [place] 00 bedtime as Medical needed for Branch Insomnia. zolpidem 2021-07- No [id number] 10mg Take 1 [facility] mg tablet 1-22 [...] Pain (scale 4-6). Indication s: chronic pain hydroCHLORO 2021-07 Yes [id number] 12.5mg Take 1 [facility] thiazide 0-27 tablet by [facility] of 12.5 mg 00:00: mouth [place] tablet 00 every Medical morning. Branch azithromyci 2021-07 Yes [id number] 250mg Z-Romel = [facility] 250 mg 0-27 500 mg day [facility] f tablet 00:00: 1, then [place] 00 250 mg Medical days 2 to Branch 5. Take 500 mg day 1, then 250 mg days 2 to 5. nebivoloL 2021-07 Yes [id number] 10mg Take 1 [facility] 10 mg 0-27 tablet by [facility] tablet 00:00: mouth in [place] 00 the Medical morning. Branch hydroCHLORO 2021-07 Yes [id number] 12.5mg Take 1 [facility] thiazide 0-27 tablet by [facility] of 12.5 mg 00:00: mouth [place] tablet 00 every Medical morning. Branch azithromyci 2021-07 Yes [id number] 250mg Z-Romel = [facility] 250 mg 0-27 500 mg day [facility] o f tablet 00:00: 1, then [place] 00 250 mg Medical days 2 to Branch 5. Take 500 mg day 1, then 250 mg days 2 to 5. nebivoloL 2021-07 Yes [id number] 10mg Take 1 [facility] 10 mg 0-27 tablet by [facility] tablet 00:00: mouth in [place] 00 the Medical morning. Branch hydroCHLORO 2021-07 Yes [id number] 12.5mg Take 1 [facility] thiazide 0-27 tablet by [facility] of 12.5 mg 00:00: mouth [place] tablet 00 every Medical morning. Branch azithromyci 2021-07 Yes [id number] 250mg Z-Romel = [facility] 250 mg 0-27 500 mg day [facility] f tablet 00:00: 1, then [place] 00 250 mg Medical days 2 to Branch 5. Take 500 mg day 1, then 250 mg days 2 to 5. nebivoloL 2021-07 Yes [id number] 10mg Take 1 [facility] 10 mg 0-27 tablet by [facility] tablet 00:00: mouth in [place] 00 the Medical morning. Branch hydroCHLORO 2021-07 Yes [id number] 12.5mg Take 1 [facility] thiazide 0-27 tablet by [facility] of 12.5 mg 00:00: mouth [place] tablet 00 every Medical morning. Branch azithromyci 2021-07 Yes [id number] 250mg Z-Romel = [facility] 250 mg 0-27 500 mg day [facility] o f tablet 00:00: 1, then [place] 00 250 mg Medical days 2 to Branch 5. Take 500 mg day 1, then 250 mg days 2 to 5. nebivoloL 2021-07 Yes [id number] 10mg Take 1 [facility] 10 mg 0-27 tablet by [facility] tablet 00:00: mouth in [place] 00 the Medical morning. Branch hydroCHLORO 2021-07 Yes [id number] 12.5mg Take 1 [facility] thiazide 0-27 tablet by [facility] of 12.5 mg 00:00: mouth [place] tablet 00 every Medical morning. Branch azithromyci 2021-07 Yes [id number] 250mg Z-Romel = [facility] 250 mg 0-27 500 mg day [facility] o f tablet 00:00: 1, then [place] 00 250 mg Medical days 2 to Branch 5. Take 500 mg day 1, then 250 mg days 2 to 5. nebivoloL 2021-07 Yes [id number] 10mg Take 1 [facility] 10 mg 0-27 tablet by [facility] tablet 00:00: mouth in [place] 00 the Medical morning. Branch hydroCHLORO 2021-07 Yes [id number] 12.5mg Take 1 [facility] thiazide 0-27 tablet by [facility] of 12.5 mg 00:00: mouth [place] tablet 00 every Medical morning. Branch azithromyci 2021-07 Yes [id number] 250mg Z-Romel = [facility] 250 mg 0-27 500 mg day [facility] o f tablet 00:00: 1, then [place] 00 250 mg Medical days 2 to Branch 5. Take 500 mg day 1, then 250 mg days 2 to 5. nebivoloL 2021-07 Yes [id number] 10mg Take 1 [facility] 10 mg 0-27 tablet by [facility] tablet 00:00: mouth in [place] 00 the Medical morning. Branch hydroCHLORO 2021-07 Yes [id number] 12.5mg Take 1 [facility] thiazide 0-27 tablet by [facility] of 12.5 mg 00:00: mouth [place] tablet 00 every Medical morning. Branch azithromyci 2021-07 Yes [id number] 250mg Z-Romel = [facility] 250 mg 0-27 500 mg day [facility] o f tablet 00:00: 1, then [place] 00 250 mg Medical days 2 to Branch 5. Take 500 mg day 1, then 250 mg days 2 to 5. nebivoloL 2021-07 Yes [id number] 10mg Take 1 [facility] 10 mg 0-27 tablet by [facility] tablet 00:00: mouth in [place] 00 the Medical morning. Branch hydroCHLORO 2021-07 Yes [id number] 12.5mg Take 1 [facility] thiazide 0-27 tablet by [facility] of 12.5 mg 00:00: mouth [place] tablet 00 every Medical morning. Branch azithromyci 2021-07 Yes [id number] 250mg Z-Romel = [facility] 250 mg 0-27 500 mg day [facility] o f tablet 00:00: 1, then [place] 00 250 mg Medical days 2 to Branch 5. Take 500 mg day 1, then 250 mg days 2 to 5. nebivoloL 2021-07 Yes [id number] 10mg Take 1 [facility] 10 mg 0-27 tablet by [facility] tablet 00:00: mouth in [place] 00 the Medical morning. Branch hydroCHLORO 2021-07 Yes [id number] 12.5mg Take 1 [facility] thiazide 0-27 tablet by [facility] of 12.5 mg 00:00: mouth [place] tablet 00 every Medical morning. Branch azithromyci 2021-07 Yes [id number] 250mg Z-Romel = [facility] 250 mg 0-27 500 mg day [facility] o f tablet 00:00: 1, then [place] 00 250 mg Medical days 2 to Branch 5. Take 500 mg day 1, then 250 mg days 2 to 5. nebivoloL 2021-07 Yes [id number] 10mg Take 1 [facility] 10 mg 0-27 tablet by [facility] tablet 00:00: mouth in [place] 00 the Medical morning. Branch hydroCHLORO 2021-07 Yes [id number] 12.5mg Take 1 [facility] thiazide 0-27 tablet by [facility] of 12.5 mg 00:00: mouth [place] tablet 00 every Medical morning. Branch azithromyci 2021-07 Yes [id number] 250mg Z-Romel = [facility] 250 mg 0-27 500 mg day [facility] o f tablet 00:00: 1, then [place] 00 250 mg Medical days 2 to Branch 5. Take 500 mg day 1, then 250 mg days 2 to 5. nebivoloL 2021-07 Yes [id number] 10mg Take 1 [facility] 10 mg 0-27 tablet by [facility] tablet 00:00: mouth in [place] 00 the Medical morning. Branch hydroCHLORO 2021-07 Yes [id number] 12.5mg Take 1 [facility] thiazide 0-27 tablet by [facility] of 12.5 mg 00:00: mouth [place] tablet 00 every Medical morning. Branch azithromyci 2021-07 Yes [id number] 250mg Z-Romel = [facility] 250 mg 0-27 500 mg day [facility] o f tablet 00:00: 1, then [place] 00 250 mg Medical days 2 to Branch 5. Take 500 mg day 1, then 250 mg days 2 to 5. nebivoloL 2021-07 Yes [id number] 10mg Take 1 [facility] 10 mg 0-27 tablet by [facility] tablet 00:00: mouth in [place] 00 the Medical morning. Branch hydroCHLORO 2021-07 Yes [id number] 12.5mg Take 1 [facility] thiazide 0-27 tablet by [facility] of 12.5 mg 00:00: mouth [place] tablet 00 every Medical morning. Branch azithromyci 2021-07 Yes [id number] 250mg Z-Romel = [facility] 250 mg 0-27 500 mg day [facility] o f tablet 00:00: 1, then [place] 00 250 mg Medical days 2 to Branch 5. Take 500 mg day 1, then 250 mg days 2 to 5. nebivoloL 2021-07 Yes [id number] 10mg Take 1 [facility] 10 mg 0-27 tablet by [facility] tablet 00:00: mouth in [place] 00 the Medical morning. Branch hydroCHLORO 2021-07 Yes [id number] 12.5mg Take 1 [facility] thiazide 0-27 tablet by [facility] of 12.5 mg 00:00: mouth [place] tablet 00 every Medical morning. Branch azithromyci 2021-07 Yes [id number] 250mg Z-Romel = [facility] 250 mg 0-27 500 mg day [facility] o f tablet 00:00: 1, then [place] 00 250 mg Medical days 2 to Branch 5. Take 500 mg day 1, then 250 mg days 2 to 5. nebivoloL 2021-07 Yes [id number] 10mg Take 1 [facility] 10 mg 0-27 tablet by [facility] tablet 00:00: mouth in [place] 00 the Medical morning. Branch hydroCHLORO 2021-07 Yes [id number] 12.5mg Take 1 [facility] thiazide 0-27 tablet by [facility] of 12.5 mg 00:00: mouth [place] tablet 00 every Medical morning. Branch azithromyci 2021-07 Yes [id number] 250mg Z-Romel = [facility] 250 mg 0-27 500 mg day [facility] o f tablet 00:00: 1, then [place] 00 250 mg Medical days 2 to Branch 5. Take 500 mg day 1, then 250 mg days 2 to 5. nebivoloL 2021-07 Yes [id number] 10mg Take 1 [facility] 10 mg 0-27 tablet by [facility] tablet 00:00: mouth in [place] 00 the Medical morning. Branch hydroCHLORO 2021-07 Yes [id number] 12.5mg Take 1 [facility] thiazide 0-27 tablet by [facility] of 12.5 mg 00:00: mouth [place] tablet 00 every Medical morning. Branch azithromyci 2021-07 Yes [id number] 250mg Z-Romel = [facility] 250 mg 0-27 500 mg day [facility] o f tablet 00:00: 1, then [place] 00 250 mg Medical days 2 to Branch 5. Take 500 mg day 1, then 250 mg days 2 to 5. nebivoloL 2021-07 Yes [id number] 10mg Take 1 [facility] 10 mg 0-27 tablet by [facility] tablet 00:00: mouth in [place] 00 the Medical morning. Branch hydroCHLORO 2021-07 Yes [id number] 12.5mg Take 1 [facility] thiazide 0-27 tablet by [facility] of 12.5 mg 00:00: mouth [place] tablet 00 every Medical morning. Branch azithromyci 2021-07 Yes [id number] 250mg Z-Romel = [facility] 250 mg 0-27 500 mg day [facility] o f tablet 00:00: 1, then [place] 00 250 mg Medical days 2 to Branch 5. Take 500 mg day 1, then 250 mg days 2 to 5. nebivoloL 2021-07 Yes [id number] 10mg Take 1 [facility] 10 mg 0-27 tablet by [facility] tablet 00:00: mouth in [place] 00 the Medical morning. Branch hydroCHLORO 2021-07 Yes [id number] 12.5mg Take 1 [facility] thiazide 0-27 tablet by [facility] of 12.5 mg 00:00: mouth [place] tablet 00 every Medical morning. Branch azithromyci 2021-07 Yes [id number] 250mg Z-Romel = [facility] 250 mg 0-27 500 mg day [facility] o f tablet 00:00: 1, then [place] 00 250 mg Medical days 2 to Branch 5. Take 500 mg day 1, then 250 mg days 2 to 5. nebivoloL 2021-07 Yes [id number] 10mg Take 1 [facility] 10 mg 0-27 tablet by [facility] tablet 00:00: mouth in [place] 00 the Medical morning. Branch hydroCHLORO 2021-07 Yes [id number] 12.5mg Take 1 [facility] thiazide 0-27 tablet by [facility] of 12.5 mg 00:00: mouth [place] tablet 00 every Medical morning. Branch azithromyci 2021-07 Yes [id number] 250mg Z-Romel = [facility] 250 mg 0-27 500 mg day [facility] o f tablet 00:00: 1, then [place] 00 250 mg Medical days 2 to Branch 5. Take 500 mg day 1, then 250 mg days 2 to 5. nebivoloL 2021-07 Yes [id number] 10mg Take 1 [facility] 10 mg 0-27 tablet by [facility] tablet 00:00: mouth in [place] 00 the Medical morning. Branch hydroCHLORO 2021-07 Yes [id number] 12.5mg Take 1 [facility] thiazide 0-27 tablet by [facility] of 12.5 mg 00:00: mouth [place] tablet 00 every Medical morning. Branch azithromyci 2021-07 Yes [id number] 250mg Z-Romel = [facility] 250 mg 0-27 500 mg day [facility] o f tablet 00:00: 1, then [place] 00 250 mg Medical days 2 to Branch 5. Take 500 mg day 1, then 250 mg days 2 to 5. nebivoloL 2021-07 Yes [id number] 10mg Take 1 [facility] 10 mg 0-27 tablet by [facility] tablet 00:00: mouth in [place] 00 the Medical morning. Branch hydroCHLORO 2021-07 Yes [id number] 12.5mg Take 1 [facility] thiazide 0-27 tablet by [facility] of 12.5 mg 00:00: mouth [place] tablet 00 every Medical morning. Branch azithromyci 2021-07 Yes [id number] 250mg Z-Romel = [facility] 250 mg 0-27 500 mg day [facility] o f tablet 00:00: 1, then [place] 00 250 mg Medical days 2 to Branch 5. Take 500 mg day 1, then 250 mg days 2 to 5. nebivoloL 2021-07 Yes [id number] 10mg Take 1 [facility] 10 mg 0-27 tablet by [facility] tablet 00:00: mouth in [place] 00 the Medical morning. Branch hydroCHLORO 2021-07 Yes [id number] 12.5mg Take 1 [facility] thiazide 0-27 tablet by [facility] of 12.5 mg 00:00: mouth [place] tablet 00 every Medical morning. Branch azithromyci 2021-07 Yes [id number] 250mg Z-Romel = [facility] 250 mg 0-27 500 mg day [facility] o f tablet 00:00: 1, then [place] 00 250 mg Medical days 2 to Branch 5. Take 500 mg day 1, then 250 mg days 2 to 5. nebivoloL 2021-07 Yes [id number] 10mg Take 1 [facility] 10 mg 0-27 tablet by [facility] tablet 00:00: mouth in [place] 00 the Medical morning. Branch hydroCHLORO 2021-07 Yes [id number] 12.5mg Take 1 [facility] thiazide 0-27 tablet by [facility] of 12.5 mg 00:00: mouth [place] tablet 00 every Medical morning. Branch azithromyci 2021-07 Yes [id number] 250mg Z-Romel = [facility] 250 mg 0-27 500 mg day [facility] o f tablet 00:00: 1, then [place] 00 250 mg Medical days 2 to Branch 5. Take 500 mg day 1, then 250 mg days 2 to 5. nebivoloL 2021-07 Yes [id number] 10mg Take 1 [facility] 10 mg 0-27 tablet by [facility] tablet 00:00: mouth in [place] 00 the Medical morning. Branch azithromyci 2021-07 Yes [id number] 250mg Z-Romel = [facility] 250 mg 0-27 500 mg day [facility] o f tablet 00:00: 1, then [place] 00 250 mg Medical days 2 to Branch 5. Take 500 mg day 1, then 250 mg days 2 to 5. nebivoloL 2021-07 Yes [id number] 10mg Take 1 [facility] 10 mg 0-27 tablet by [facility] tablet 00:00: mouth in [place] 00 the Medical morning. Branch azithromyci 2021-07 Yes [id number] 250mg Z-Romel = [facility] 250 mg 0-27 500 mg day [facility] o f tablet 00:00: 1, then [place] 00 250 mg Medical days 2 to Branch 5. Take 500 mg day 1, then 250 mg days 2 to 5. nebivoloL 2021-07 Yes [id number] 10mg Take 1 [facility] 10 mg 0-27 tablet by [facility] tablet 00:00: mouth in [place] 00 the Medical morning. Branch leoi 2021-07 Yes [id number] 250mg [facility] = [facility] 250 mg 0-27 500 mg day [facility] o f tablet 00:00: 1, then [place] 00 250 mg Medical days 2 to Branch 5. Take 500 mg day 1, then 250 mg days 2 to 5. nebivoloL 2021-07 Yes [id number] 10mg Take 1 [facility] 10 mg 0-27 tablet by [facility] tablet 00:00: mouth in [place] 00 the Medical morning. Branch leoi 2021-07 Yes [id number] 250mg Z-Rom[facility] = [facility] 250 mg 0-27 500 mg day [facility] o f tablet 00:00: 1, then [place] 00 250 mg Medical days 2 to Branch 5. Take 500 mg day 1, then 250 mg days 2 to 5. nebivoloL 2021-07 Yes [id number] 10mg Take 1 [facility] 10 mg 0-27 tablet by [facility] tablet 00:00: mouth in [place] 00 the Medical morning. Branch [facility] 2021-07 Yes [id number] 250mg Z-Romel = [facility] 250 mg 0-27 500 mg day [facility] o f tablet 00:00: 1, then [place] 00 250 mg Medical days 2 to Branch 5. Take 500 mg day 1, then 250 mg days 2 to 5. nebivoloL 2021-07 Yes [id number] 10mg Take 1 [facility] 10 mg 0-27 tablet by [facility] tablet 00:00: mouth in [place] 00 the Medical morning. [facility] Yes [id number] 250mg Z-Romel = [facility] 250 mg 0-27 500 mg day [facility] o f tablet 00:00: 1, then [place] 00 250 mg Medical days 2 to Branch 5. Take 500 mg day 1, then 250 mg days 2 to 5. nebivoloL 2021-07 Yes [id number] 10mg Take 1 [facility] 10 mg 0-27 tablet by [facility] tablet 00:00: mouth in [place] 00 the Medical morning. Branch luisithromraffyi 2021-07 Yes [id number] 250mg [facility] = [facility] 250 mg 0-27 500 mg day [facility] o f tablet 00:00: 1, then [place] 00 250 mg Medical days 2 to Branch 5. Take 500 mg day 1, then 250 mg days 2 to 5. nebivoloL 2021-07 Yes [id number] 10mg Take 1 [facility] 10 mg 0-27 tablet by [facility] tablet 00:00: mouth in [place] 00 the Medical morning. Branch azithromyci 2021-07 Yes [id number] 250mg Z-Romel = [facility] 250 mg 0-27 500 mg day [facility] o f tablet 00:00: 1, then [place] 00 250 mg Medical days 2 to Branch 5. Take 500 mg day 1, then 250 mg days 2 to 5. nebivoloL 2021-07 Yes [id number] 10mg Take 1 [facility] 10 mg 0-27 tablet by [facility] tablet 00:00: mouth in [place] 00 the Medical morning. Branch azithromyci 2021-07 Yes [id number] 250mg Z-Romel = [facility] 250 mg 0-27 500 mg day [facility] o f tablet 00:00: 1, then [place] 00 250 mg Medical days 2 to Branch 5. Take 500 mg day 1, then 250 mg days 2 to 5. nebivoloL 2021-07 Yes [id number] 10mg Take 1 [facility] 10 mg 0-27 tablet by [facility] tablet 00:00: mouth in [place] 00 the Medical morning. Branch azithromyci 2021-07 Yes [id number] 250mg Z-Romel = [facility] 250 mg 0-27 500 mg day [facility] o f tablet 00:00: 1, then [place] 00 250 mg Medical days 2 to Branch 5. Take 500 mg day 1, then 250 mg days 2 to 5. nebivoloL 2021-07 Yes [id number] 10mg Take 1 [facility] 10 mg 0-27 tablet by [facility] tablet 00:00: mouth in [place] 00 the Medical morning. Branch azithromyci 2021-07 Yes [id number] 250mg Z-Romel = [facility] 250 mg 0-27 500 mg day [facility] o f tablet 00:00: 1, then [place] 00 250 mg Medical days 2 to Branch 5. Take 500 mg day 1, then 250 mg days 2 to 5. azithromyci 2021-07 Yes [id number] 250mg Z-Romel = [facility] 250 mg 0-27 500 mg day [facility] o f tablet 00:00: 1, then [place] 00 250 mg Medical days 2 to Branch 5. Take 500 mg day 1, then 250 mg days 2 to 5. propranoloL 2021-07 Yes [id number] 10mg Take 1 [facility] 10 mg 0-27 9105 tablet by [facility] tablet 00:00: mouth in [place] 00 the Medical morning Branch and 1 tablet in the evening. zolpidem 10 2021-07 Yes [id number] 10mg Take 1 [facility] mg tablet 0-27 tablet by [facility] o f 00:00: mouth at [place] 00 bedtime as Medical needed for Branch Insomnia. nebivoloL 2021-07 Yes [id number] 10mg Take 1 [facility] 10 mg 0-27 tablet by [facility] tablet 00:00: mouth in [place] 00 the Medical morning. Branch hydroCHLORO 2021-07 Yes [id number] 12.5mg Take 1 [facility] thiazide 0-27 tablet by [facility] of 12.5 mg 00:00: mouth [place] tablet 00 every Medical morning. Branch azithromyci 2021-07 Yes [id number] 250mg Z-Romel = [facility] 250 mg 0-27 500 mg day [facility] o f tablet 00:00: 1, then [place] 00 250 mg Medical days 2 to Branch 5. Take 500 mg day 1, then 250 mg days 2 to 5. propranoloL 2021-07 Yes [id number] 10mg Take 1 [facility] 10 mg 0-27 9105 tablet by [facility] tablet 00:00: mouth in [place] 00 the Medical morning Branch and 1 tablet in the evening. zolpidem 10 2021-07 Yes [id number] 10mg Take 1 [facility] mg tablet 0-27 tablet by [facility] o f 00:00: mouth at [place] 00 bedtime as Medical needed for Branch Insomnia. nebivoloL 2021-07 Yes [id number] 10mg Take 1 [facility] 10 mg 0-27 tablet by [facility] tablet 00:00: mouth in [place] 00 the Medical morning. Branch hydroCHLORO 2021-07 Yes [id number] 12.5mg Take 1 [facility] thiazide 0-27 tablet by [facility] of 12.5 mg 00:00: mouth [place] tablet 00 every Medical morning. Branch azithromyci 2021-07 Yes [id number] 250mg Z-Romel = [facility] n 250 mg [...] Indication s: chronic pain propranoloL 2021-07 Yes [id number] 10mg Take 1 [facility] 10 mg 0-27 9105 tablet by [facility] tablet 00:00: mouth in [place] 00 the Medical morning Branch and 1 tablet in the evening. zolpidem 10 2021-07 Yes [id number] 10mg Take 1 [facility] mg tablet 0-27 tablet by [facility] o f 00:00: mouth at [place] 00 bedtime as Medical needed for Branch Insomnia. nebivoloL 2021-07 Yes [id number] 10mg Take 1 [facility] 10 mg 0-27 tablet by [facility] tablet 00:00: mouth in [place] 00 the Medical morning. Branch hydroCHLORO 2021-07 Yes [id number] 12.5mg Take 1 [facility] thiazide 0-27 tablet by [facility] of 12.5 mg 00:00: mouth [place] tablet 00 every Medical morning. Branch azithromyci 2021-07 Yes [id number] 250mg Z-Romel = [facility] 250 mg 0-27 500 mg day [facility] o f tablet 00:00: 1, then [place] 00 250 mg Medical days 2 to Branch 5. Take 500 mg day 1, then 250 mg days 2 to 5. propranoloL 2021-07 Yes [id number] 10mg Take 1 [facility] 10 mg 0-27 9105 tablet by [facility] tablet 00:00: mouth in [place] 00 the Medical morning Branch and 1 tablet in the evening. zolpidem 10 2021-07 Yes [id number] 10mg Take 1 [facility] mg tablet 0-27 tablet by [facility] o f 00:00: mouth at [place] 00 bedtime as Medical needed for Branch Insomnia. nebivoloL 2021-07 Yes [id number] 10mg Take 1 [facility] 10 mg 0-27 tablet by [facility] tablet 00:00: mouth in [place] 00 the Medical morning. Branch hydroCHLORO 2021-07 Yes [id number] 12.5mg Take 1 [facility] thiazide 0-27 tablet by [facility] of 12.5 mg 00:00: mouth [place] tablet 00 every Medical morning. Branch azithromyci 2021-07 Yes [id number] 250mg Z-Romel = [facility] n 250 mg 0-27 500 mg day ity o f tablet 00:00: 1, then [place] 00 250 mg Medical days 2 to Branch 5. Take 500 mg day 1, then 250 mg days 2 to 5. propranoloL 2021-07 Yes [id number] 10mg Take 1 [facility] 10 mg 0-27 9105 tablet by [facility] of tablet 00:00: mouth in [place] 00 the Medical morning Branch and 1 tablet in the evening. nebivoloL 2021-07 Yes [id number] 10mg Take 1 [facility] 10 mg 0-27 tablet by [facility] tablet 00:00: mouth in [place] 00 the Medical morning. Branch hydroCHLORO 2021-07 Yes [id number] 12.5mg Take 1 [facility] thiazide 0-27 tablet by [facility] of 12.5 mg 00:00: mouth [place] tablet 00 every Medical morning. Branch azithromyci 2021-07 Yes [id number] 250mg Z-Romel = [facility] 250 mg 0-27 500 mg day it[facility] o f tablet 00:00: 1, then [place] 00 250 mg Medical days 2 to Branch 5. Take 500 mg day 1, then 250 mg days 2 to 5. propranoloL 2021-07 Yes [id number] 10mg Take 1 [facility] 10 mg 0-27 9105 tablet by [facility] of tablet 00:00: mouth in [place] 00 the Medical morning Branch and 1 tablet in the evening. nebivoloL 2021-07 Yes [id number] 10mg Take 1 [facility] 10 mg 0-27 tablet by [facility] tablet 00:00: mouth in [place] 00 the Medical morning. Branch hydroCHLORO 2021-07 Yes [id number] 12.5mg Take 1 [facility] thiazide 0-27 tablet by [facility] of 12.5 mg 00:00: mouth [place] tablet 00 every Medical morning. Branch azithromyci 2021-07 Yes [id number] 250mg Z-Romel = [facility] 250 mg 0-27 500 mg day it[facility] o f tablet 00:00: 1, then [place] 00 250 mg Medical days 2 to Branch 5. Take 500 mg day 1, then 250 mg days 2 to 5. propranoloL 2021-07 Yes [id number] 10mg Take 1 [facility] 10 mg 0-27 9105 tablet by [facility] of tablet 00:00: mouth in [place] 00 the Medical morning Branch and 1 tablet in the evening. nebivoloL 2021-07 Yes [id number] 10mg Take 1 [facility] 10 mg 0-27 tablet by [facility] tablet 00:00: mouth in [place] 00 the Medical morning. Branch hydroCHLORO 2021-07 Yes [id number] 12.5mg Take 1 [facility] thiazide 0-27 tablet by [facility] of 12.5 mg 00:00: mouth [place] tablet 00 every Medical morning. Branch azithromyci 2021-07 Yes [id number] 250mg Z-Romel = [facility] 250 mg 0-27 500 mg day it[facility] o f tablet 00:00: 1, then [place] 00 250 mg Medical days 2 to Branch 5. Take 500 mg day 1, then 250 mg days 2 to 5. propranoloL 2021-07 Yes [id number] 10mg Take 1 [facility] 10 mg 0-27 9105 tablet by [facility] of tablet 00:00: mouth in [place] the Medical morning Branch and 1 tablet in the evening. nebivoloL 2021-07 Yes [id number] 10mg Take 1 [facility] 10 mg 0-27 tablet by [facility] tablet 00:00: mouth in [place] 00 the Medical morning. Branch hydroCHLORO 2021-07 Yes [id number] 12.5mg Take 1 [facility] thiazide 0-27 tablet by [facility] of 12.5 mg 00:00: mouth [place] tablet 00 every Medical morning. Branch azithromyci 2021-07 Yes [id number] 250mg Z-Rom[facility] = [facility] 250 mg 0-27 500 mg day it[facility] o f tablet 00:00: 1, then [place] 00 250 mg Medical days 2 to Branch 5. Take 500 mg day 1, then 250 mg days 2 to 5. propranoloL 2021-07 Yes [id number] 10mg Take 1 [facility] 10 mg 0-27 9105 tablet by [facility] of tablet 00:00: mouth in [place] 00 the Medical morning Branch and 1 tablet in the evening. nebivoloL 2021-07 Yes [id number] 10mg Take 1 [facility] 10 mg 0-27 tablet by [facility] tablet 00:00: mouth in [place] 00 the Medical morning. Branch hydroCHLORO 2021-07 Yes [id number] 12.5mg Take 1 [facility] thiazide 0-27 tablet by [facility] of 12.5 mg 00:00: mouth [place] tablet 00 every Medical morning. Branch azithromyci 2021-07 Yes [id number] 250mg Z-Romel = [facility] 250 mg 0-27 500 mg day it[facility] o f tablet 00:00: 1, then [place] 00 250 mg Medical days 2 to Branch 5. Take 500 mg day 1, then 250 mg days 2 to 5. propranoloL 2021-07 Yes [id number] 10mg Take 1 [facility] 10 mg 0-27 9105 tablet by [facility] of tablet 00:00: mouth in [place] 00 the Medical morning Branch and 1 tablet in the evening. nebivoloL 2021-07 Yes [id number] 10mg Take 1 [facility] 10 mg 0-27 tablet by [facility] tablet 00:00: mouth in [place] 00 the Medical morning. Branch hydroCHLORO 2021-07 Yes [id number] 12.5mg Take 1 [facility] thiazide 0-27 tablet by [facility] of 12.5 mg 00:00: mouth [place] tablet 00 every Medical morning. Branch azithromyci 2021-07 Yes [id number] 250mg Z-Romel = [facility] 250 mg 0-27 500 mg day it[facility] o f tablet 00:00: 1, then [place] 00 250 mg Medical days 2 to Branch 5. Take 500 mg day 1, then 250 mg days 2 to 5. propranoloL 2021-07 Yes [id number] 10mg Take 1 [facility] 10 mg 0-27 9105 tablet by [facility] of tablet 00:00: mouth in [place] 00 the Medical morning Branch and 1 tablet in the evening. nebivoloL 2021-07 Yes [id number] 10mg Take 1 [facility] 10 mg 0-27 tablet by [facility] tablet 00:00: mouth in [place] 00 the Medical morning. Branch hydroCHLORO 2021-07 Yes [id number] 12.5mg Take 1 [facility] thiazide 0-27 tablet by [facility] of 12.5 mg 00:00: mouth [place] tablet 00 every Medical morning. Branch azithromyci 2021-07 Yes [id number] 250mg Z-Rom[facility] = [facility] 250 mg 0-27 500 mg day ity o f tablet 00:00: 1, then [place] 00 250 mg Medical days 2 to Branch 5. Take 500 mg day 1, then 250 mg days 2 to 5. nebivoloL 2021-07 Yes [id number] 10mg Take 1 [facility] 10 mg 0-27 tablet by [facility] tablet 00:00: mouth in [place] 00 the Medical morning. Branch hydroCHLORO 2021-07 Yes [id number] 12.5mg Take 1 [facility] thiazide 0-27 tablet by [facility] of 12.5 mg 00:00: mouth [place] tablet 00 every Medical morning. Branch azithromyci 2021-07 Yes [id number] 250mg Z-Romel = [facility] 250 mg 0-27 500 mg day it[facility] o f tablet 00:00: 1, then [place] 00 250 mg Medical days 2 to Branch 5. Take 500 mg day 1, then 250 mg days 2 to 5. nebivoloL 2021-07 Yes [id number] 10mg Take 1 [facility] 10 mg 0-27 tablet by [facility] of tablet 00:00: mouth in [place] 00 the Medical morning. Branch hydroCHLORO 2021-07 Yes [id number] 12.5mg Take 1 [facility] thiazide 0-27 tablet by [facility] of 12.5 mg 00:00: mouth [place] tablet 00 every Medical morning. Branch azithromyci 2021-07 Yes [id number] 250mg Z-Rom[facility] = [facility] 250 mg 0-27 500 mg day [facility] o f tablet 00:00: 1, then [place] 00 250 mg Medical days 2 to Branch 5. Take 500 mg day 1, then 250 mg days 2 to 5. nebivoloL 2021-07 Yes [id number] 10mg Take 1 [facility] 10 mg 0-27 tablet by [facility] of tablet 00:00: mouth in [place] 00 the Medical morning. Branch hydroCHLORO 2021-07 Yes [id number] 12.5mg Take 1 [facility] thiazide 0-27 tablet by [facility] of 12.5 mg 00:00: mouth [place] tablet 00 every Medical morning. Branch azithromyci 2021-07 Yes [id number] 250mg Z-Romel = [facility] 250 mg 0-27 500 mg day it[facility] o f tablet 00:00: 1, then [place] 00 250 mg Medical days 2 to Branch 5. Take 500 mg day 1, then 250 mg days 2 to 5. nebivoloL 2021-07 Yes [id number] 10mg Take 1 [facility] 10 mg 0-27 tablet by [facility] of tablet 00:00: mouth in [place] 00 the Medical morning. Branch hydroCHLORO 2021-07 Yes [id number] 12.5mg Take 1 [facility] thiazide 0-27 tablet by [facility] of 12.5 mg 00:00: mouth [place] tablet 00 every Medical morning. Branch azithromyci 2021-07 Yes [id number] 250mg Z-Romel = [facility] 250 mg 0-27 500 mg day ity o f tablet 00:00: 1, then [place] 00 250 mg Medical days 2 to Branch 5. Take 500 mg day 1, then 250 mg days 2 to 5. nebivoloL 2021-07 Yes [id number] 10mg Take 1 [facility] 10 mg 0-27 tablet by [facility] of tablet 00:00: mouth in [place] 00 the Medical morning. Branch nebivoloL 2021-07- No [id number] 10mg Take 1 [facility] 10 mg 0-27 07-10 tablet by [facility] of tablet 00:00: 00:00 mouth in [place] 00 :00 the Medical morning. Branch hydroCHLORO 2021-07- No [id number] 12.5mg Take 1 [facility] thiazide 0-27 04-26 tablet by ity o f 12.5 mg 00:00: 00:00 mouth [place] tablet 00 :00 every Medical morning. Branch propranoloL 2021-07- No [id number] 10mg Take 1 [facility] 10 mg 0-27 12-29 9105 tablet by [facility] of tablet 00:00: 00:00 mouth in [place] 00 :00 the Medical morning Branch and 1 tablet in the evening. propranoloL 2021-07- No [id number] 10mg Take 1 [facility] 10 mg 0-27 12-29 9105 tablet by [facility] of tablet 00:00: 00:00 mouth in [place] 00 :00 the Medical morning Branch and 1 tablet in the evening. zolpidem 10 2021-07- No [id number] 10mg Take 1 [facility] mg tablet 0-27 [...] 4-6). Indication s: chronic pain PROPRANOLOL Yes [id number] TAKE 1 [facility] 10 mg 9-22 9105 TABLET BY [facility] of tablet 00:00: MOUTH [place] 00 TWICE Medical DAILY. Branch PROPRANOLOL 2021-0 Yes [id number] TAKE 1 [facility] 10 mg 9-22 9105 TABLET BY [facility] of tablet 00:00: MOUTH [place] 00 TWICE Medical DAILY. Branch PROPRANOLOL 2021-0 Yes [id number] TAKE 1 [facility] 10 mg 9-22 9105 TABLET BY [facility] of tablet 00:00: MOUTH [place] 00 TWICE Medical DAILY. Branch PROPRANOLOL 2021-0 Yes [id number] TAKE 1 [facility] 10 mg 9-22 9105 TABLET BY [facility] of tablet 00:00: MOUTH [place] 00 TWICE Medical DAILY. Branch PROPRANOLOL 2021-0 Yes [id number] TAKE 1 [facility] 10 mg 9-22 9105 TABLET BY [facility] of tablet 00:00: MOUTH [place] 00 TWICE Medical DAILY. Branch PROPRANOLOL 2021-0 Yes [id number] TAKE 1 [facility] 10 mg 9-22 9105 TABLET BY [facility] of tablet 00:00: MOUTH [place] 00 TWICE Medical DAILY. Branch PROPRANOLOL 2021-0 2021- No [id number] TAKE 1 [facility] 10 mg 9-22 10-27 9105 TABLET BY [facility]y of tablet 00:00: 00:00 MOUTH [place] 00 :00 TWICE Medical DAILY. Branch PROPRANOLOL 2021-0 2021- No [id number] TAKE 1 [facility] 10 mg 9-22 10-27 9105 TABLET BY [facility]y of tablet 00:00: 00:00 MOUTH [place] 00 :00 TWICE Medical DAILY. Branch HYDROcodone 2021- No [id number] 1{tbl} Take 1 [facility] -acetaminop -12 30-14 tablet by it y of hen 5-325 [...] 40mg Take 40 mg [facility] 40 mg -08 01- by mouth [facility]y of tablet 15:55: 00:00 daily. [place] 02 :00 Medical Branch zolpidem 10 2021-0 Yes [id number] 10mg Take 1 [facility] mg tablet 9- tablet by ity o f 00:00: mouth at [place] 00 bedtime as Medical needed for Branch Insomnia. lisinopriL 0 Yes [id number] 40mg Take 1 [facility] 40 mg 9- tablet by [facility] of tablet 00:00: mouth in [place] 00 the Medical morning. Branch zolpidem 10 0 Yes [id number] 10mg Take 1 [facility] mg tablet 9- tablet by ity o f 00:00: mouth at [place] 00 bedtime as Medical needed for Branch Insomnia. lisinopriL 0 Yes [id number] 40mg Take 1 [facility] 40 mg 9- tablet by [facility] of tablet 00:00: mouth in [place] 00 the Medical morning. Branch zolpidem 10 0 Yes [id number] 10mg Take 1 [facility] mg tablet 9- tablet by ity o f 00:00: mouth at [place] 00 bedtime as Medical needed for Branch Insomnia. lisinopriL 0 Yes [id number] 40mg Take 1 [facility] n[facility] 40 mg 9-01 tablet by it[facility] of tablet 00:00: mouth in [place] 00 the Medical morning. Branch zolpidem 10 0 Yes [id number] 10mg Take 1 [facility] mg tablet 9-01 tablet by ity o f 00:00: mouth at [place] 00 bedtime as Medical needed for Branch Insomnia. lisinopriL 0 Yes [id number] 40mg Take 1 [facility] 40 mg 9-01 tablet by ity of tablet 00:00: mouth in [place] 00 the Medical morning. Branch zolpidem 10 0 Yes [id number] 10mg Take 1 [facility] mg tablet 9-01 tablet by ity o f 00:00: mouth at [place] 00 bedtime as Medical needed for Branch Insomnia. lisinopriL 2021-0 Yes [id number] 40mg Take 1 [facility] 40 mg 9-01 tablet by [facility] of tablet 00:00: mouth in [place] 00 the Medical morning. Branch zolpidem 10 2021-0 Yes [id number] 10mg Take 1 [facility] mg tablet 9-01 tablet by ity o f 00:00: mouth at [place] 00 bedtime as Medical needed for Branch Insomnia. lisinopriL 0 Yes [id number] 40mg Take 1 [facility] n[facility] 40 mg 9-01 tablet by ity of tablet 00:00: mouth in [place] 00 the Medical morning. Branch zolpidem 10 0 Yes [id number] 10mg Take 1 [facility] mg tablet 9-01 tablet by ity o f 00:00: mouth at [place] 00 bedtime as Medical needed for Branch Insomnia. lisinopriL 0 Yes [id number] 40mg Take 1 [facility] 40 mg 9-01 tablet by [facility] of tablet 00:00: mouth in [place] 00 the Medical morning. Branch zolpidem 10 0 Yes [id number] 10mg Take 1 [facility] mg tablet 9-01 tablet by ity o f 00:00: mouth at [place] 00 bedtime as Medical needed for Branch Insomnia. lisinopriL 0 Yes [id number] 40mg Take 1 [facility] 40 mg 9-01 tablet by [facility]y of tablet 00:00: mouth in [place] 00 the Medical morning. Branch zolpidem 10 0 Yes [id number] 10mg Take 1 [facility] mg tablet 9-01 tablet by ity o f 00:00: mouth at [place] 00 bedtime as Medical needed for Branch Insomnia. lisinopriL 0 Yes [id number] 40mg Take 1 [facility] 40 mg 9-01 tablet by [facility] of tablet 00:00: mouth in [place] 00 the Medical morning. Branch zolpidem 10 0 Yes [id number] 10mg Take 1 [facility] mg tablet 9-01 tablet by ity o f 00:00: mouth at [place] 00 bedtime as Medical needed for Branch Insomnia. lisinopriL 0 Yes [id number] 40mg Take 1 [facility] 40 mg 9-01 tablet by ity of tablet 00:00: mouth in [place] 00 the Medical morning. Branch zolpidem 10 2021-0 2021- No [id number] 10mg Take 1 [facility] mg tablet 9-01 10-27 tablet by ity of 00:00: 00:00 mouth at [place] 00 :00 bedtime as Medical needed for Branch Insomnia. lisinopriL 2021- No [id number] 40mg Take 1 [facility] 40 mg 03-24 tablet by ity of tablet 00:00: 00:00 mouth in [place] 00 :00 the Medical morning. Branch zolpidem 10 2021- No [id number] 10mg Take 1 [facility] mg tablet 03-24 tablet by ity of 00:00: 00:00 mouth at [place] 00 :00 bedtime as Medical needed for Branch Insomnia. lisinopriL 2021- No [id number] 40mg Take 1 [facility] 40 mg 03-24 tablet by ity of tablet 00:00: 00:00 mouth in [place] 00 :00 the Medical morning. Branch HYDROcodone 2021- No [id number] 1{tbl} Take 1 [facility] nivers -acetaminop -03-10 tablet by it y of hen 5-325 00:00: 04:59 mouth [place] mg tablet 00 :00 every 6 Medical (six) Branch hours as needed for Pain (scale 4-6) for up to 7 days. Indication s: chronic pain zolpidem 10 Yes [id number] 10mg Take 1 [facility] mg tablet -28 tablet by ity o f 00:00: mouth at [place] 00 bedtime as Medical needed for Branch Insomnia. zolpidem 10 Yes [id number] 10mg Take 1 [facility] mg tablet 7-28 tablet by ity o f 00:00: mouth at [place] 00 bedtime as Medical needed for Branch Insomnia. zolpidem 10 2021- No [id number] 10mg Take 1 [facility] mg tablet -03-24 tablet by ity of 00:00: 00:00 mouth at [place] 00 :00 bedtime as Medical needed for Branch Insomnia. molnupiravi Yes [id number] 800mg Take 4 [facility] r 200 mg 7-22 capsules ity of capsule 00:00: by mouth [place] 00 every 12 Medical (twelve) Branch hours. molnupiravi Yes [id number] 800mg Take 4 [facility] r 200 mg 7-22 capsules ity of capsule 00:00: by mouth [place] [address] every 12 Medical (twelve) Branch hours. molnupiravi Yes [id number] 800mg Take 4 [facility] r 200 mg 7-22 capsules ity of capsule 00:00: by mouth [place] 00 every 12 Medical (twelve) Branch hours. molnupiravi 2021-0 Yes [id number] 800mg Take 4 [facility] r 200 mg 7-22 capsules ity of capsule 00:00: by mouth [place] 00 every 12 Medical (twelve) Branch hours. molnupiravi 2021-0 Yes [id number] 800mg Take 4 [facility] r 200 mg 7-22 capsules ity of capsule 00:00: by mouth [place] 00 every 12 Medical (twelve) Branch hours. molnupiravi 2021-0 Yes [id number] 800mg Take 4 [facility] r 200 mg 7-22 capsules ity of capsule 00:00: by mouth [place] 00 every 12 Medical (twelve) Branch hours. molnupiravi 0 Yes [id number] 800mg Take 4 [facility] r 200 mg 7-22 capsules ity of capsule 00:00: by mouth [place] 00 every 12 Medical (twelve) Branch hours. molnupiravi 2021-0 Yes [id number] 800mg Take 4 [facility] r 200 mg 7-22 capsules ity of capsule 00:00: by mouth [place] 00 every 12 Medical (twelve) Branch hours. molnupiravi 2021-0 Yes [id number] 800mg Take 4 [facility] r 200 mg 7-22 capsules ity of capsule 00:00: by mouth [place] 00 every 12 Medical (twelve) Branch hours. molnupiravi 2021-0 Yes [id number] 800mg Take 4 [facility] r 200 mg 7-22 capsules ity of capsule 00:00: by mouth [place] 00 every 12 Medical (twelve) Branch hours. molnupiravi 2021-0 Yes [id number] 800mg Take 4 [facility] r 200 mg 7-22 capsules ity of capsule 00:00: by mouth [place] 00 every 12 Medical (twelve) Branch hours. molnupiravi 2021-0 Yes [id number] 800mg Take 4 [facility] r 200 mg 7-22 capsules ity of capsule 00:00: by mouth [place] 00 every 12 Medical (twelve) Branch hours. molnupiravi 2021-0 Yes [id number] 800mg Take 4 [facility] r 200 mg 7-22 capsules ity of capsule 00:00: by mouth [place] 00 every 12 Medical (twelve) Branch hours. molnupiravi 0 Yes [id number] 800mg Take 4 [facility] r 200 mg 7-22 capsules ity of capsule 00:00: by mouth [place] 00 every 12 Medical (twelve) Branch hours. molnupiravi 0 Yes [id number] 800mg Take 4 [facility] r 200 mg 7-22 capsules ity of capsule 00:00: by mouth [place] 00 every 12 Medical (twelve) Branch hours. molnupiravi 0 Yes [id number] 800mg Take 4 [facility] r 200 mg 7-22 capsules ity of capsule 00:00: by mouth [place] 00 every 12 Medical (twelve) Branch hours. molnupiravi 0 Yes [id number] 800mg Take 4 [facility] r 200 mg 7-22 capsules ity of capsule 00:00: by mouth [place] 00 every 12 Medical (twelve) Branch hours. molnupiravi 0 Yes [id number] 800mg Take 4 [facility] r 200 mg 7-22 capsules ity of capsule 00:00: by mouth [place] 00 every 12 Medical (twelve) Branch hours. molnupiravi 0 Yes [id number] 800mg Take 4 [facility] r 200 mg 7-22 capsules ity of capsule 00:00: by mouth [place] 00 every 12 Medical (twelve) Branch hours. molnupiravi 0 Yes [id number] 800mg Take 4 [facility] r 200 mg 7-22 capsules ity of capsule 00:00: by mouth [place] 00 every 12 Medical (twelve) Branch hours. molnupiravi 0 Yes [id number] 800mg Take 4 [facility] r 200 mg 7-22 capsules ity of capsule 00:00: by mouth [place] 00 every 12 Medical (twelve) Branch hours. molnupiravi 0 Yes [id number] 800mg Take 4 [facility] r 200 mg 7-22 capsules ity of capsule 00:00: by mouth [place] 00 every 12 Medical (twelve) Branch hours. molnupiravi 0 Yes [id number] 800mg Take 4 [facility] r 200 mg 7-22 capsules ity of capsule 00:00: by mouth [place] 00 every 12 Medical (twelve) Branch hours. molnupiravi 0 2021- No [id number] 800mg Take 4 [facility] r 200 mg 7-22 12-29 capsules ity of capsule 00:00: 00:00 by mouth [place] 00 :00 every 12 Medical (twelve) Branch hours. molnupiravi 2-0 2021- No [id number] 800mg Take 4 [facility] r 200 mg 02-11-29 capsules ity of capsule 00:00: 00:00 by mouth [place] 00 :00 every 12 Medical (twelve) Branch hours. propranoloL 2-0 Yes [id number] 10mg Take 1 [facility] 10 mg 3-24 9105 tablet by ity of tablet 00:00: mouth 2 [place] (two) Medical times Branch daily. propranoloL 2-0 Yes [id number] 10mg Take 1 [facility] 10 mg 3-24 9105 tablet by ity of tablet 00:00: mouth 2 [place] (two) Medical times Branch daily. propranoloL 2-0 Yes [id number] 10mg Take 1 [facility] 10 mg 3-24 9105 tablet by ity of tablet 00:00: mouth 2 [place] (two) Medical times Branch daily. propranoloL 2021-0 Yes [id number] 10mg Take 1 [facility] 10 mg 3-24 9105 tablet by ity of tablet 00:00: mouth 2 [place] (two) Medical times Branch daily. propranoloL 2-0 Yes [id number] 10mg Take 1 [facility] 10 mg 3-24 9105 tablet by ity of tablet 00:00: mouth 2 [place] (two) Medical times Branch daily. propranoloL 2-0 Yes [id number] 10mg Take 1 [facility] 10 mg 3-24 9105 tablet by ity of tablet 00:00: mouth 2 [place] (two) Medical times Branch daily. HYDROcodone 2021-0 Yes 1{tbl} Take 1 [facility] -acetaminop 3-24 tablet by ity of hen 5-325 00:00: mouth. [place] mg tablet 00 Medical Branch HYDROcodone 2021-0 2021- No 1{tbl} Take 1 [facility] nivers -acetaminop 3-24 10-27 tablet by it y of hen 5-325 00:00: 00:00 mouth. [place] mg tablet 00 :00 Medical Branch HYDROcodone 2-0 2- No 1{tbl} Take 1 [facility] nivers -acetaminop 3-24 10-27 tablet by it y of hen 5-325 00:00: 00:00 mouth. [place] mg tablet 00 :00 Medical Branch HYDROcodone 2021-0 2021- No 1{tbl} Take 1 [facility] nivers -acetaminop 3-24 10-27 tablet by it y of hen 5-325 00:00: 00:00 mouth. [place] mg tablet 00 :00 Medical Branch propranoloL 2021-0 2021- No [id number] 10mg Take 1 [facility] 10 mg 10-14 9105 tablet by ity of tablet 00:00: [...] mouth [place] tablet 00 every Medical morning. [place] hydroCHLORO 2021-0 Yes 12.5mg Take 12.5 [facility] thiazide 3-11 mg by ity of 12.5 mg 00:00: mouth [place] tablet 00 every Medical morning. [place] hydroCHLORO 2021-0 Yes 12.5mg Take 12.5 [facility] thiazide 3-11 mg by ity of 12.5 mg 00:00: mouth [place] tablet 00 every Medical morning. [place] hydroCHLORO 2021-0 Yes 12.5mg Take 12.5 [facility] thiazide 3-11 mg by ity of 12.5 mg 00:00: mouth [place] tablet 00 every Medical morning. [place] hydroCHLORO 2021-0 Yes 12.5mg Take 12.5 [facility] thiazide 3-11 mg by ity of 12.5 mg 00:00: mouth [place] tablet 00 every Medical morning. [place] hydroCHLORO 2021-0 Yes 12.5mg Take 12.5 [facility] thiazide 3-11 mg by ity of 12.5 mg 00:00: mouth [place] tablet 00 every Medical morning. Branch hydroCHLORO 2021-0 Yes 12.5mg Take 12.5 [facility] thiazide 3-11 mg by ity of 12.5 mg 00:00: mouth [place] tablet 00 every Medical morning. [place] hydroCHLORO 2021-0 Yes 12.5mg Take 12.5 [facility] [...] every Medical morning. Branch ACETAMINOPH 2022-0 Yes [id number] TAKE 1 [facility] EN-CODEINE 3-08 TABLET BY ity of 300-30 mg 00:00: MOUTH [place] tablet 00 EVERY 4 Medical HOURS Branch NEEDED FOR MODERATE PAIN OR CHRONIC PAIN ACETAMINOPH 2022-0 Yes [id number] TAKE 1 [facility] EN-CODEINE 3-08 TABLET BY ity of 300-30 mg 00:00: MOUTH [place] tablet 00 EVERY 4 Medical HOURS Branch NEEDED FOR MODERATE PAIN OR CHRONIC PAIN ACETAMINOPH 2022-0 Yes [id number] TAKE 1 [facility] EN-CODEINE 3-08 TABLET BY ity of 300-30 mg 00:00: MOUTH [place] tablet 00 EVERY 4 Medical HOURS Branch NEEDED FOR MODERATE PAIN OR CHRONIC PAIN ACETAMINOPH 2022-0 Yes [id number] TAKE 1 [facility] EN-CODEINE 3-08 TABLET BY ity of 300-30 mg 00:00: MOUTH [place] tablet 00 EVERY 4 Medical HOURS Branch NEEDED FOR MODERATE PAIN OR CHRONIC PAIN ACETAMINOPH 2022-0 Yes [id number] TAKE 1 [facility] EN-CODEINE 3-08 TABLET BY ity of 300-30 mg 00:00: MOUTH [place] tablet 00 EVERY 4 Medical HOURS Branch NEEDED FOR MODERATE PAIN OR CHRONIC PAIN ACETAMINOPH 2022-0 Yes [id number] TAKE 1 [facility] EN-CODEINE 3-08 TABLET BY ity of 300-30 mg 00:00: MOUTH [place] tablet 00 EVERY 4 Medical HOURS Branch NEEDED FOR MODERATE PAIN OR CHRONIC PAIN ACETAMINOPH 2022-0 Yes [id number] TAKE 1 [facility] EN-CODEINE 3-08 TABLET BY ity of 300-30 mg 00:00: MOUTH [place] tablet 00 EVERY 4 Medical HOURS Branch NEEDED FOR MODERATE PAIN OR CHRONIC PAIN ACETAMINOPH 2022-0 Yes [id number] TAKE 1 [facility] EN-CODEINE 3-08 TABLET BY ity of 300-30 mg 00:00: MOUTH [place] tablet 00 EVERY 4 Medical HOURS Branch NEEDED FOR MODERATE PAIN OR CHRONIC PAIN ACETAMINOPH 2022-0 Yes [id number] TAKE 1 [facility] EN-CODEINE 3-08 TABLET BY ity of 300-30 mg 00:00: MOUTH [place] tablet 00 EVERY 4 Medical HOURS Branch NEEDED FOR MODERATE PAIN OR CHRONIC PAIN ACETAMINOPH 2022-0 Yes [id number] TAKE 1 [facility] EN-CODEINE 3-08 TABLET BY ity of 300-30 mg 00:00: MOUTH [place] tablet 00 EVERY 4 Medical HOURS Branch NEEDED FOR MODERATE PAIN OR CHRONIC PAIN ACETAMINOPH 2022-0 Yes [id number] TAKE 1 [facility] EN-CODEINE 3-08 TABLET BY ity of 300-30 mg 00:00: MOUTH [place] tablet 00 EVERY 4 Medical HOURS Branch NEEDED FOR MODERATE PAIN OR CHRONIC PAIN ACETAMINOPH 2022-0 Yes [id number] TAKE 1 [facility] EN-CODEINE 3-08 TABLET BY ity of 300-30 mg 00:00: MOUTH [place] tablet 00 EVERY 4 Medical HOURS Branch NEEDED FOR MODERATE PAIN OR CHRONIC PAIN ACETAMINOPH 2022-0 2022- No [id number] TAKE 1 [facility] EN-CODEINE 3-08 10-27 TABLET BY ity of 300-30 mg 00:00: 00:00 MOUTH [place] tablet 00 :00 EVERY 4 Medical HOURS Branch NEEDED FOR MODERATE PAIN OR CHRONIC PAIN ACETAMINOPH 2022-0 2022- No [id number] TAKE 1 [facility] EN-CODEINE 3-08 10-27 TABLET BY ity of 300-30 mg 00:00: 00:00 MOUTH [place] tablet 00 :00 EVERY 4 Medical HOURS Branch NEEDED FOR MODERATE PAIN OR CHRONIC PAIN furosemide 2022-0 Yes TAKE 1 [facility] 20 mg 3-03 TABLET BY ity of tablet 00:00: MOUTH [place] 00 EVERY DAY Medical MONITOR Branch BLOOD PRESSURE WE DISUSSED furosemide 2021-0 Yes TAKE 1 [facility] 20 mg 3-03 TABLET BY ity of tablet 00:00: [facility] 00 EVERY DAY Medical MONITOR Branch BLOOD PRESSURE WE DISUSSED furosemide 2021-0 Yes TAKE 1 [facility] 20 mg 3-03 TABLET BY ity of tablet 00:00: [facility] 00 EVERY DAY Medical MONITOR Branch BLOOD PRESSURE WE DISUSSED furosemide 2021-0 Yes TAKE 1 [facility] 20 mg 3-03 TABLET BY ity of tablet 00:00: MOUTH [place] 00 EVERY DAY Medical MONITOR Branch BLOOD PRESSURE WE DISUSSED furosemide 2021-0 Yes TAKE 1 [facility] 20 mg 3-03 TABLET BY ity of tablet 00:00: [facility] 00 EVERY DAY Medical MONITOR Branch BLOOD PRESSURE WE DISUSSED furosemide 2021-0 Yes TAKE 1 [facility] 20 mg 3-03 TABLET BY ity of tablet 00:00: [facility] 00 EVERY DAY Medical MONITOR Branch BLOOD PRESSURE WE DISUSSED furosemide 2021-0 Yes TAKE 1 Unive rs 20 mg 3-03 TABLET BY ity of tablet 00:00: [facility] 00 EVERY DAY Medical MONITOR Branch BLOOD PRESSURE WE DISUSSED furosemide 2021-0 Yes TAKE 1 Unive rs 20 mg 3-03 TABLET BY ity of tablet 00:00: [facility] 00 EVERY DAY Medical MONITOR Branch BLOOD PRESSURE WE DISUSSED furosemide 2021-0 Yes TAKE 1 Unive rs 20 mg 3-03 TABLET BY ity of tablet 00:00: [facility] 00 EVERY DAY Medical MONITOR Branch BLOOD PRESSURE WE DISUSSED furosemide 2021-0 Yes TAKE 1 Unive rs 20 mg 3-03 TABLET BY ity of tablet 00:00: [facility] 00 EVERY DAY Medical MONITOR Branch BLOOD PRESSURE WE DISUSSED furosemide 2021-0 Yes TAKE 1 Unive rs 20 mg 3-03 TABLET BY ity of tablet 00:00: [facility] 00 EVERY DAY Medical MONITOR Branch BLOOD PRESSURE WE DISUSSED furosemide 2-0 Yes TAKE 1 Unive rs 20 mg 3-03 TABLET BY ity of tablet 00:00: [facility] 00 EVERY DAY Medical MONITOR Branch BLOOD PRESSURE WE DISUSSED furosemide 2-0 Yes TAKE 1 Unive rs 20 mg 3-03 TABLET BY ity of tablet 00:00: [facility] 00 EVERY DAY Medical MONITOR Branch BLOOD PRESSURE WE DISUSSED furosemide 2-0 Yes TAKE 1 Unive rs 20 mg 3-03 TABLET BY ity of tablet 00:00: MOUTH [place] 00 EVERY DAY Medical MONITOR Branch BLOOD PRESSURE WE DISUSSED furosemide 2021-0 Yes TAKE 1 Unive rs 20 mg 3-03 TABLET BY ity of tablet 00:00: MOUTH [place] 00 EVERY DAY Medical MONITOR Branch BLOOD PRESSURE WE DISUSSED furosemide 2021-0 Yes TAKE 1 Unive rs 20 mg 3-03 TABLET BY ity of tablet 00:00: MOUTH [place] 00 EVERY DAY Medical MONITOR Branch BLOOD PRESSURE WE DISUSSED furosemide 2021-0 Yes TAKE 1 Unive rs 20 mg 3-03 TABLET BY ity of tablet 00:00: [facility] 00 EVERY DAY Medical MONITOR Branch BLOOD PRESSURE WE DISUSSED furosemide 2021-0 Yes TAKE 1 Unive rs 20 mg 3-03 TABLET BY ity of tablet 00:00: MOUTH [place] 00 EVERY DAY Medical MONITOR Branch BLOOD PRESSURE WE DISUSSED furosemide 2021-0 Yes TAKE 1 Unive rs 20 mg 3-03 TABLET BY ity of tablet 00:00: MOUTH [place] EVERY DAY Medical MONITOR Branch BLOOD PRESSURE WE DISUSSED furosemide 2021-0 Yes TAKE 1 Unive rs 20 mg 3-03 TABLET BY ity of tablet 00:00: [facility] EVERY DAY Medical MONITOR Branch BLOOD PRESSURE WE DISUSSED furosemide 2021-0 Yes TAKE 1 Unive rs 20 mg 3-03 TABLET BY ity of tablet 00:00: [facility] 00 EVERY DAY Medical MONITOR Branch BLOOD PRESSURE WE DISUSSED furosemide 2021-0 Yes TAKE 1 Unive rs 20 mg 3-03 TABLET BY ity of tablet 00:00: MOUTH [place] 00 EVERY DAY Medical MONITOR Branch BLOOD PRESSURE WE DISUSSED furosemide 2-0 Yes TAKE 1 Unive rs 20 mg 3-03 TABLET BY ity of tablet 00:00: MOUTH [place] 00 EVERY DAY Medical MONITOR Branch BLOOD PRESSURE WE DISUSSED furosemide 2-0 Yes TAKE 1 Unive rs 20 mg 3-03 TABLET BY ity of tablet 00:00: [facility] 00 EVERY DAY Medical MONITOR Branch BLOOD PRESSURE WE DISUSSED furosemide 2022-0 Yes TAKE 1 Unive rs 20 mg 3-03 TABLET BY ity of tablet 00:00: [facility] 00 EVERY DAY Medical MONITOR Branch BLOOD PRESSURE WE DISUSSED furosemide 2022-0 Yes TAKE 1 Unive rs 20 mg 3-03 TABLET BY ity of tablet 00:00: MOUTH [place] 00 EVERY DAY Medical MONITOR Branch BLOOD PRESSURE WE DISUSSED furosemide 2021-0 Yes TAKE 1 Unive rs 20 mg 3-03 TABLET BY ity of tablet 00:00: MOUTH [place] 00 EVERY DAY Medical MONITOR Branch BLOOD PRESSURE WE DISUSSED furosemide 2021-0 Yes TAKE 1 Unive rs 20 mg 3-03 TABLET BY ity of tablet 00:00: MOUTH [place] 00 EVERY DAY Medical MONITOR Branch BLOOD PRESSURE WE DISUSSED furosemide 2021-0 Yes TAKE 1 Unive rs 20 mg 3-03 TABLET BY ity of tablet 00:00: MOUTH [place] 00 EVERY DAY Medical MONITOR Branch BLOOD PRESSURE WE DISUSSED furosemide 2021-0 Yes TAKE 1 Unive rs 20 mg 3-03 TABLET BY ity of tablet 00:00: [facility] 00 EVERY DAY Medical MONITOR Branch BLOOD PRESSURE WE DISUSSED furosemide 2021-0 Yes TAKE 1 Unive rs 20 mg 3-03 TABLET BY ity of tablet 00:00: [facility] 00 EVERY DAY Medical MONITOR Branch BLOOD PRESSURE WE DISUSSED furosemide 2021-0 Yes TAKE 1 Unive rs 20 mg 3-03 TABLET BY ity of tablet 00:00: [facility] 00 EVERY DAY Medical MONITOR Branch BLOOD PRESSURE WE DISUSSED furosemide 2021-0 Yes TAKE 1 Unive rs 20 mg 3-03 TABLET BY ity of tablet 00:00: [facility] 00 EVERY DAY Medical MONITOR Branch BLOOD PRESSURE WE DISUSSED furosemide 2021-0 Yes TAKE 1 Unive rs 20 mg 3-03 TABLET BY ity of tablet 00:00: [facility] 00 EVERY DAY Medical MONITOR Branch BLOOD PRESSURE WE DISUSSED furosemide 2021-0 Yes TAKE 1 Unive rs 20 mg 3-03 TABLET BY ity of tablet 00:00: MOUTH [place] 00 EVERY DAY Medical MONITOR Branch BLOOD PRESSURE WE DISUSSED furosemide 2021-0 Yes TAKE 1 Unive rs 20 mg 3-03 TABLET BY ity of tablet 00:00: [facility] 00 EVERY DAY Medical MONITOR Branch BLOOD PRESSURE WE DISUSSED furosemide 2021-0 Yes TAKE 1 Unive rs 20 mg 3-03 TABLET BY ity of tablet 00:00: [facility] 00 EVERY DAY Medical MONITOR Branch BLOOD PRESSURE WE DISUSSED furosemide 2021-0 Yes TAKE 1 Unive rs 20 mg 3-03 TABLET BY ity of tablet 00:00: MOUTH [place] 00 EVERY DAY Medical MONITOR Branch BLOOD PRESSURE WE DISUSSED furosemide 2021-0 Yes TAKE 1 Unive rs 20 mg 3-03 TABLET BY ity of tablet 00:00: MOUTH [place] 00 EVERY DAY Medical MONITOR Branch BLOOD PRESSURE WE DISUSSED furosemide 2021-0 Yes TAKE 1 Unive rs 20 mg 3-03 TABLET BY ity of tablet 00:00: MOUTH [place] 00 EVERY DAY Medical MONITOR Branch BLOOD PRESSURE WE DISUSSED furosemide 2021-0 Yes TAKE 1 Unive rs 20 mg 3-03 TABLET BY ity of tablet 00:00: MOUTH [place] 00 EVERY DAY Medical MONITOR Branch BLOOD PRESSURE WE DISUSSED furosemide 2021-0 Yes TAKE 1 Unive rs 20 mg 3-03 TABLET BY ity of tablet 00:00: MOUTH [place] 00 EVERY DAY Medical MONITOR Branch BLOOD PRESSURE WE DISUSSED furosemide 2021-0 Yes TAKE 1 Unive rs 20 mg 3-03 TABLET BY ity of tablet 00:00: [facility] 00 EVERY DAY Medical MONITOR Branch BLOOD PRESSURE WE DISUSSED furosemide 2021-0 Yes TAKE 1 Unive rs 20 mg 3-03 TABLET BY ity of tablet 00:00: MOUTH [place] 00 EVERY DAY Medical MONITOR Branch BLOOD PRESSURE WE DISUSSED furosemide 2021-0 Yes TAKE 1 Unive rs 20 mg 3-03 TABLET BY ity of tablet 00:00: MOUTH [place] 00 EVERY DAY Medical MONITOR Branch BLOOD PRESSURE WE DISUSSED furosemide 2021-0 Yes TAKE 1 Unive rs 20 mg 3-03 TABLET BY ity of tablet 00:00: [facility] 00 EVERY DAY Medical MONITOR Branch BLOOD PRESSURE WE DISUSSED furosemide 2021-0 Yes TAKE 1 Unive rs 20 mg 3-03 TABLET BY ity of tablet 00:00: MOUTH [place] 00 EVERY DAY Medical MONITOR Branch BLOOD PRESSURE WE DISUSSED furosemide 2-0 Yes TAKE 1 Unive rs 20 mg 3-03 TABLET BY ity of tablet 00:00: MOUTH [place] 00 EVERY DAY Medical MONITOR Branch BLOOD PRESSURE WE DISUSSED furosemide 2021-0 Yes TAKE 1 Unive rs 20 mg 3-03 TABLET BY ity of tablet 00:00: MOUTH [place] 00 EVERY DAY Medical MONITOR Branch BLOOD PRESSURE WE DISUSSED furosemide 2021-0 Yes TAKE 1 Unive rs 20 mg 3-03 TABLET BY ity of tablet 00:00: MOUTH [place] 00 EVERY DAY Medical MONITOR Branch BLOOD PRESSURE WE DISUSSED furosemide Yes TAKE 1 Unive rs 20 mg 3-03 TABLET BY ity of tablet 00:00: MOUTH [place] 00 EVERY DAY Medical MONITOR Branch BLOOD PRESSURE WE DISUSSED furosemide 0 Yes TAKE 1 Unive rs 20 mg 3-03 TABLET BY ity of tablet 00:00: MOUTH [place] 00 EVERY DAY Medical MONITOR Branch BLOOD PRESSURE WE DISUSSED furosemide Yes TAKE 1 Unive rs 20 mg 3-03 TABLET BY ity of tablet 00:00: MOUTH [place] 00 EVERY DAY Medical MONITOR Branch BLOOD PRESSURE WE DISUSSED furosemide Yes TAKE 1 Unive rs 20 mg 3-03 TABLET BY ity of tablet 00:00: MOUTH [place] 00 EVERY DAY Medical MONITOR Branch BLOOD PRESSURE WE DISUSSED furosemide Yes TAKE 1 Unive rs 20 mg 3-03 TABLET BY ity of tablet 00:00: MOUTH [place] 00 EVERY DAY Medical MONITOR Branch BLOOD PRESSURE WE DISUSSED furosemide Yes TAKE 1 Unive rs 20 mg 3-03 TABLET BY ity of tablet 00:00: MOUTH [place] 00 EVERY DAY Medical MONITOR Branch BLOOD PRESSURE WE DISUSSED furosemide Yes TAKE 1 Unive rs 20 mg 3-03 TABLET BY ity of tablet 00:00: MOUTH [place] 00 EVERY DAY Medical MONITOR Branch BLOOD PRESSURE WE DISUSSED furosemide 0 Yes TAKE 1 Unive rs 20 mg 3-03 TABLET BY ity of tablet 00:00: [facility] 00 EVERY DAY Medical MONITOR Branch BLOOD PRESSURE WE DISUSSED furosemide 0 Yes TAKE 1 Unive rs 20 mg 3-03 TABLET BY ity of tablet 00:00: MOUTH [place] 00 EVERY DAY Medical MONITOR Branch BLOOD PRESSURE WE DISUSSED furosemide 0 Yes TAKE 1 Unive rs 20 mg 3-03 TABLET BY ity of tablet 00:00: MOUTH [place] 00 EVERY DAY Medical MONITOR Branch BLOOD PRESSURE WE DISUSSED furosemide 0 Yes TAKE 1 Unive rs 20 mg 3-03 TABLET BY ity of tablet 00:00: MOUTH [place] 00 EVERY DAY Medical MONITOR Branch BLOOD PRESSURE WE DISUSSED atorvastati 0 Yes 40mg Take 40 mg Univers n 40 mg 1-21 by mouth ity of tablet 00:00: daily. [facility] Branch atorvastati 2021-0 Yes 40mg Take 40 mg Univers n 40 mg 1-21 by mouth ity of tablet 00:00: daily. [facility] Branch atorvastati 2021-0 Yes 40mg Take 40 mg Univers n 40 mg 1-21 by mouth ity of tablet 00:00: daily. [facility] atorvastati 2021-0 Yes 40mg Take 40 mg Univers n 40 mg 1-21 by mouth ity of tablet 00:00: daily. [facility] Branch atorvastati 2021-0 Yes 40mg Take 40 mg Univers n 40 mg 1-21 by mouth ity of tablet 00:00: daily. [facility] Branch atorvastati 0 Yes 40mg Take 40 mg Univers n 40 mg 1-21 by mouth ity of tablet 00:00: daily. [facility] atorvastati 2021-0 Yes 40mg Take 40 mg Univers n 40 mg 1-21 by mouth ity of tablet 00:00: daily. [facility] Branch atorvastati 2021-0 Yes 40mg Take 40 mg Univers n 40 mg 1-21 by mouth ity of tablet 00:00: daily. [facility] atorvastati 0 Yes 40mg Take 40 mg Univers n 40 mg 1-21 by mouth ity of tablet 00:00: daily. [facility] atorvastati 0 Yes 40mg Take 40 mg Univers n 40 mg 1-21 by mouth ity of tablet 00:00: daily. [facility] atorvastati 2021-0 Yes 40mg Take 40 mg Univers n 40 mg 1-21 by mouth ity of tablet 00:00: daily. [facility] atorvastati 2021-0 Yes 40mg Take 40 mg Univers n 40 mg 1-21 by mouth ity of tablet 00:00: daily. [facility] atorvastati 2021-0 Yes 40mg Take 40 mg Univers n 40 mg 1-21 by mouth ity of tablet 00:00: daily. [facility] atorvastati 2021-0 Yes 40mg Take 40 mg Univers n 40 mg 1-21 by mouth ity of tablet 00:00: daily. [facility] atorvastati 0 Yes 40mg Take 40 mg Univers n 40 mg 1-21 by mouth ity of tablet 00:00: daily. [facility] Branch atorvastati 0 Yes 40mg Take 40 mg Univers n 40 mg 1-21 by mouth ity of tablet 00:00: daily. [facility] atorvastati Yes 40mg Take 40 mg Univers n 40 mg 1-21 by mouth ity of tablet 00:00: daily. [facility] atorvastati 0 Yes 40mg Take 40 mg Univers n 40 mg 1-21 by mouth ity of tablet 00:00: daily. [facility] atorvastati 0 Yes 40mg Take 40 mg Univers n 40 mg 1-21 by mouth ity of tablet 00:00: daily. [facility] atorvastati Yes 40mg Take 40 mg Univers n 40 mg 1-21 by mouth ity of tablet 00:00: daily. [facility] atorvastati Yes 40mg Take 40 mg Univers n 40 mg 1-21 by mouth ity of tablet 00:00: daily. [facility] atorvastati Yes 40mg Take 40 mg Univers n 40 mg 1-21 by mouth ity of tablet 00:00: daily. [facility] atorvastati 0 Yes 40mg Take 40 mg Univers n 40 mg 1-21 by mouth ity of tablet 00:00: daily. [facility] atorvastati Yes 40mg Take 40 mg Univers n 40 mg 1-21 by mouth ity of tablet 00:00: daily. [facility] atorvastati 0 Yes 40mg Take 40 mg Univers n 40 mg 1-21 by mouth ity of tablet 00:00: daily. [facility] atorvastati 0 Yes 40mg Take 40 mg Univers n 40 mg 1-21 by mouth ity of tablet 00:00: daily. [facility] atorvastati 0 Yes 40mg Take 40 mg Univers n 40 mg 1-21 by mouth ity of tablet 00:00: daily. [facility] atorvastati 0 Yes 40mg Take 40 mg Univers n 40 mg 1-21 by mouth ity of tablet 00:00: daily. [facility] Branch atorvastati 0 Yes 40mg Take 40 mg Univers n 40 mg 1-21 by mouth ity of tablet 00:00: daily. [facility] Branch atorvastati 2021-0 Yes 40mg Take 40 mg Univers n 40 mg 1-21 by mouth ity of tablet 00:00: daily. [facility] atorvastati 2021-0 Yes 40mg Take 40 mg Univers n 40 mg 1-21 by mouth ity of tablet 00:00: daily. [facility] Branch atorvastati 2021-0 Yes 40mg Take 40 mg Univers n 40 mg 1-21 by mouth ity of tablet 00:00: daily. [facility] atorvastati 0 Yes 40mg Take 40 mg Univers n 40 mg 1-21 by mouth ity of tablet 00:00: daily. [facility] atorvastati 0 Yes 40mg Take 40 mg Univers n 40 mg 1-21 by mouth ity of tablet 00:00: daily. [facility] atorvastati 0 Yes 40mg Take 40 mg Univers n 40 mg 1-21 by mouth ity of tablet 00:00: daily. [facility] atorvastati 0 Yes 40mg Take 40 mg Univers n 40 mg 1-21 by mouth ity of tablet 00:00: daily. [facility] atorvastati 0 Yes 40mg Take 40 mg Univers n 40 mg 1-21 by mouth ity of tablet 00:00: daily. [facility] atorvastati 2021-0 Yes 40mg Take 40 mg Univers n 40 mg 1-21 by mouth ity of tablet 00:00: daily. [facility] atorvastati 2021-0 Yes 40mg Take 40 mg Univers n 40 mg 1-21 by mouth ity of tablet 00:00: daily. [facility] atorvastati 2021-0 Yes 40mg Take 40 mg Univers n 40 mg 1-21 by mouth ity of tablet 00:00: daily. [facility] atorvastati 2021-0 Yes 40mg Take 40 mg Univers n 40 mg 1-21 by mouth ity of tablet 00:00: daily. [facility] Branch atorvastati 2022-0 Yes 40mg Take 40 mg Univers n 40 mg 1-21 by mouth ity of tablet 00:00: daily. [facility] Branch atorvastati 0 Yes 40mg Take 40 mg Univers n 40 mg 1-21 by mouth ity of tablet 00:00: daily. [facility] Branch atorvastati 0 Yes 40mg Take 40 mg Univers n 40 mg 1-21 by mouth ity of tablet 00:00: daily. [facility] Branch atorvastati 0 Yes 40mg Take 40 mg Univers n 40 mg 1-21 by mouth ity of tablet 00:00: daily. [facility] Branch atorvastati 0 Yes 40mg Take 40 mg Univers n 40 mg 1-21 by mouth ity of tablet 00:00: daily. [facility] Branch atorvastati 0 Yes 40mg Take 40 mg Univers n 40 mg 1-21 by mouth ity of tablet 00:00: daily. [facility] atorvastati 0 Yes 40mg Take 40 mg Univers n 40 mg 1-21 by mouth ity of tablet 00:00: daily. [facility] Branch atorvastati 0 Yes 40mg Take 40 mg Univers n 40 mg 1-21 by mouth ity of tablet 00:00: daily. [facility] atorvastati 0 Yes 40mg Take 40 mg Univers n 40 mg 1-21 by mouth ity of tablet 00:00: daily. [facility] atorvastati 0 Yes 40mg Take 40 mg Univers n 40 mg 1-21 by mouth ity of tablet 00:00: daily. [facility] Branch atorvastati 0 Yes 40mg Take 40 mg Univers n 40 mg 1-21 by mouth ity of tablet 00:00: daily. [facility] atorvastati 0 Yes 40mg Take 40 mg Univers n 40 mg 1-21 by mouth ity of tablet 00:00: daily. [facility] Branch atorvastati 0 Yes 40mg Take 40 mg Univers n 40 mg 1-21 by mouth ity of tablet 00:00: daily. [facility] atorvastati 0 Yes 40mg Take 40 [...] TABLET BY ity of tablet 00:00: MOUTH [place] EVERY DAY Medical Branch nebivoloL 2021-0 Yes TAKE 1 Univer s 10 mg 1-11 TABLET BY ity of tablet 00:00: MOUTH [place] EVERY DAY Medical Branch nebivoloL 2-0 Yes TAKE 1 Univer s 10 mg 1-11 TABLET BY ity of tablet 00:00: [facility] EVERY DAY Medical Branch nebivoloL 2-0 Yes TAKE 1 Univer s 10 mg 1-11 TABLET BY ity of tablet 00:00: [facility] EVERY DAY Medical Branch nebivoloL 2-0 Yes TAKE 1 Univer s 10 mg 1-11 TABLET BY ity of tablet 00:00: MOUTH [place] EVERY DAY Medical Branch nebivoloL 2-0 Yes TAKE 1 Univer s 10 mg 1-11 TABLET BY ity of tablet 00:00: MOUTH [place] EVERY DAY Medical Branch nebivoloL 2-0 Yes TAKE 1 Univer s 10 mg 1-11 TABLET BY ity of tablet 00:00: MOUTH [place] EVERY DAY Medical Branch nebivoloL 2-0 Yes [...] 00 EVERY DAY Medical Branch nebivoloL 2021-0 2- No TAKE 1 Unive rs 10 mg 1-11 10-27 TABLET BY ity of tablet 00:00: 00:00 MOUTH [place] 00 :00 EVERY DAY Medical Branch nebivoloL 2021-0 2- No TAKE 1 Unive rs 10 mg 1-11 10-27 TABLET BY ity of tablet 00:00: 00:00 MOUTH [place] 00 :00 EVERY DAY Medical Branch ergocalcife 1-0 Yes [id number] Take 1 Univers rol, 9-07 capsule by ity of vitamin d2, 00:00: mouth [place] 1,250 mcg 00 weekly. Medical (50,000 Branch unit) capsule ergocalcife 1-0 Yes [id number] Take 1 Univers rol, 9-07 capsule by ity of vitamin d2, 00:00: mouth [place] 1,250 mcg 00 weekly. Medical (50,000 Branch unit) capsule ergocalcife 1-0 Yes [id number] Take 1 Univers rol, 9-07 capsule by ity of vitamin d2, 00:00: mouth [place] 1,250 mcg 00 weekly. Medical (50,000 Branch unit) capsule ergocalcife 2021-0 Yes [id number] Take 1 Univers rol, 9-07 capsule by ity of vitamin d2, 00:00: mouth [place] 1,250 mcg 00 weekly. Medical (50,000 Branch unit) capsule ergocalcife 2021-0 Yes [id number] Take 1 Univers rol, 9-07 capsule by ity of vitamin d2, 00:00: mouth [place] 1,250 mcg 00 weekly. Medical (50,000 Branch unit) capsule ergocalcife 2021-0 Yes [id number] Take 1 Univers rol, 9-07 capsule by ity of vitamin d2, 00:00: mouth [place] 1,250 mcg 00 weekly. Medical (50,000 Branch unit) capsule ergocalcife 2021-0 Yes [id number] Take 1 Univers rol, 9-07 capsule by ity of vitamin d2, 00:00: mouth [place] 1,250 mcg 00 weekly. Medical (50,000 Branch unit) capsule ergocalcife 2021-0 Yes [id number] Take 1 Univers rol, 9-07 capsule by ity of vitamin d2, 00:00: mouth [place] 1,250 mcg 00 weekly. Medical (50,000 Branch unit) capsule ergocalcife 2021-0 Yes [id number] Take 1 Univers rol, 9-07 capsule by ity of vitamin d2, 00:00: mouth [place] 1,250 mcg 00 weekly. Medical (50,000 Branch unit) capsule ergocalcife 2021-0 Yes [id number] Take 1 Univers rol, 9-07 capsule by ity of vitamin d2, 00:00: mouth [place] 1,250 mcg 00 weekly. Medical (50,000 Branch unit) capsule ergocalcife 2021-0 Yes [id number] Take 1 [facility] rol, 9-07 capsule by ity of vitamin d2, 00:00: mouth [place] 1,250 mcg 00 weekly. Medical (50,000 Branch unit) capsule ergocalcife 2021-0 Yes [id number] Take 1 Univers rol, 9-07 capsule by ity of vitamin d2, 00:00: mouth [place] 1,250 mcg 00 weekly. Medical (50,000 Branch unit) capsule ergocalcife 2021-0 Yes [id number] Take 1 Univers rol, 9-07 capsule by ity of vitamin d2, 00:00: mouth [place] 1,250 mcg 00 weekly. Medical (50,000 Branch unit) capsule ergocalcife 2021-0 Yes [id number] Take 1 Univers rol, 9-07 capsule by ity of vitamin d2, 00:00: mouth [place] 1,250 mcg 00 weekly. Medical (50,000 Branch unit) capsule ergocalcife 2021-0 Yes [id number] Take 1 Univers rol, 9-07 capsule by ity of vitamin d2, 00:00: mouth [place] 1,250 mcg 00 weekly. Medical (50,000 Branch unit) capsule ergocalcife 2021-0 Yes [id number] Take 1 [facility] rol, 9-07 capsule by ity of vitamin d2, 00:00: mouth [place] 1,250 mcg 00 weekly. Medical (50,000 Branch unit) capsule ergocalcife 2021-0 Yes [id number] Take 1 Univers rol, 9-07 capsule by ity of vitamin d2, 00:00: mouth [place] 1,250 mcg 00 weekly. Medical (50,000 Branch unit) capsule ergocalcife 2021-0 Yes [id number] Take 1 Univers rol, 9-07 capsule by ity of vitamin d2, 00:00: mouth [place] 1,250 mcg 00 weekly. Medical (50,000 Branch unit) capsule ergocalcife 2021-0 Yes [id number] Take 1 Univers rol, 9-07 capsule by ity of vitamin d2, 00:00: mouth [place] 1,250 mcg 00 weekly. Medical (50,000 Branch unit) capsule ergocalcife 2021-0 Yes [id number] Take 1 Univers rol, 9-07 capsule by ity of vitamin d2, 00:00: mouth [place] 1,250 mcg 00 weekly. Medical (50,000 Branch unit) capsule ergocalcife 2021-0 Yes [id number] Take 1 Univers rol, 9-07 capsule by ity of vitamin d2, 00:00: mouth [place] 1,250 mcg 00 weekly. Medical (50,000 Branch unit) capsule ergocalcife 2021-0 Yes [id number] Take 1 Univers rol, 9-07 capsule by ity of vitamin d2, 00:00: mouth [place] 1,250 mcg 00 weekly. Medical (50,000 Branch unit) capsule ergocalcife 2021-0 Yes [id number] Take 1 Univers rol, 9-07 capsule by ity of vitamin d2, 00:00: mouth [place] 1,250 mcg 00 weekly. Medical (50,000 Branch unit) capsule ergocalcife 2021-0 Yes [id number] Take 1 Univers rol, 9-07 capsule by ity of vitamin d2, 00:00: mouth [place] 1,250 mcg 00 weekly. Medical (50,000 Branch unit) capsule ergocalcife 2021-0 Yes [id number] Take 1 Univers rol, 9-07 capsule by ity of vitamin d2, 00:00: mouth [place] 1,250 mcg 00 weekly. Medical (50,000 Branch unit) capsule ergocalcife 2021-0 Yes [id number] Take 1 Univers rol, 9-07 capsule by ity of vitamin d2, 00:00: mouth [place] 1,250 mcg 00 weekly. Medical (50,000 Branch unit) capsule ergocalcife 2021-0 Yes [id number] Take 1 Univers rol, 9-07 capsule by ity of vitamin d2, 00:00: mouth [place] 1,250 mcg 00 weekly. Medical (50,000 Branch unit) capsule ergocalcife 2021-0 Yes [id number] Take 1 Univers rol, 9-07 capsule by ity of vitamin d2, 00:00: mouth [place] 1,250 mcg 00 weekly. Medical (50,000 Branch unit) capsule ergocalcife 2021-0 Yes [id number] Take 1 Univers rol, 9-07 capsule by ity of vitamin d2, 00:00: mouth [place] 1,250 mcg 00 weekly. Medical (50,000 Branch unit) capsule ergocalcife 2021-0 Yes [id number] Take 1 Univers rol, 9-07 capsule by ity of vitamin d2, 00:00: mouth [place] 1,250 mcg 00 weekly. Medical (50,000 Branch unit) capsule ergocalcife 2021-0 Yes [id number] Take 1 Univers rol, 9-07 capsule by ity of vitamin d2, 00:00: mouth [place] 1,250 mcg 00 weekly. Medical (50,000 Branch unit) capsule ergocalcife 2021-0 Yes [id number] Take 1 Univers rol, 9-07 capsule by ity of vitamin d2, 00:00: mouth [place] 1,250 mcg 00 weekly. Medical (50,000 Branch unit) capsule ergocalcife 2021-0 Yes [id number] Take 1 Univers rol, 9-07 capsule by ity of vitamin d2, 00:00: mouth [place] 1,250 mcg 00 weekly. Medical (50,000 Branch unit) capsule ergocalcife 2021-0 Yes [id number] Take 1 Univers rol, 9-07 capsule by ity of vitamin d2, 00:00: mouth [place] 1,250 mcg 00 weekly. Medical (50,000 Branch unit) capsule ergocalcife 2021-0 Yes [id number] Take 1 Univers rol, 9-07 capsule by ity of vitamin d2, 00:00: mouth [place] 1,250 mcg 00 weekly. Medical (50,000 Branch unit) capsule ergocalcife 2021-0 Yes [id number] Take 1 Univers rol, 9-07 capsule by ity of vitamin d2, 00:00: mouth [place] 1,250 mcg 00 weekly. Medical (50,000 Branch unit) capsule ergocalcife 2021-0 Yes [id number] Take 1 Univers rol, 9-07 capsule by ity of vitamin d2, 00:00: mouth [place] 1,250 mcg 00 weekly. Medical (50,000 Branch unit) capsule ergocalcife 2021-0 Yes [id number] Take 1 Univers rol, 9-07 capsule by ity of vitamin d2, 00:00: mouth [place] 1,250 mcg 00 weekly. Medical (50,000 Branch unit) capsule ergocalcife 2021-0 Yes [id number] Take 1 Univers rol, 9-07 capsule by ity of vitamin d2, 00:00: mouth [place] 1,250 mcg 00 weekly. Medical (50,000 Branch unit) capsule ergocalcife 2021-0 Yes [id number] Take 1 Univers rol, 9-07 capsule by ity of vitamin d2, 00:00: mouth [place] 1,250 mcg 00 weekly. Medical (50,000 Branch unit) capsule ergocalcife 2021-0 Yes [id number] Take 1 Univers rol, 9-07 capsule by ity of vitamin d2, 00:00: mouth [place] 1,250 mcg 00 weekly. [facility] ([facility],000 Branch unit) capsule ergocalcife 2021-0 Yes [id number] Take 1 [facility], 9-07 capsule by ity of vitamin d2, 00:00: mouth [place] 1,250 mcg 00 weekly. Medical (50,000 Branch unit) capsule ergocalcife 2021-0 Yes [id number] Take 1 [facility] ro[facility], 9-07 capsule by ity of vitamin d2, 00:00: mouth [place] 1,250 mcg 00 weekly. Medical (50,000 Branch unit) capsule ergocalcife 2021-0 Yes [id number] Take 1 [facility] ro[facility], 9-07 capsule by ity of vitamin d2, 00:00: mouth [place] 1,250 mcg 00 weekly. Medical (50,000 Branch unit) capsule ergocalcife 2021-0 Yes [id number] Take 1 [facility] ro[facility], 9-07 capsule by ity of vitamin d2, 00:00: mouth [place] 1,250 mcg 00 weekly. Medical (50,000 Branch unit) capsule ergocalcife 2021-0 Yes [id number] Take 1 [facility] ro[facility], 9-07 capsule by ity of vitamin d2, 00:00: mouth [place] 1,250 mcg 00 weekly. Medical (50,000 Branch unit) capsule ergocalcife 2021-0 Yes [id number] Take 1 [facility] ro[facility], 9-07 capsule by ity of vitamin d2, 00:00: mouth [place] 1,250 mcg 00 weekly. Medical (50,000 Branch unit) capsule ergocalcife 2021-0 Yes [id number] Take 1 [facility] ro[facility], 9-07 capsule by ity of vitamin d2, 00:00: mouth [place] 1,250 mcg 00 weekly. Medical (50,000 Branch unit) capsule ergocalcife 2021-0 Yes [id number] Take 1 [facility] rol, 9-07 capsule by ity of vitamin d2, 00:00: mouth [place] 1,250 mcg 00 weekly. Medical (50,000 Branch unit) capsule ergocalcife 2021-0 Yes [id number] Take 1 [facility] rol, 9-07 capsule by ity of vitamin d2, 00:00: mouth [place] 1,250 mcg 00 weekly. Medical (50,000 Branch unit) capsule ergocalcife 2021-0 Yes [id number] Take 1 [facility] rol, 9-07 capsule by ity of vitamin d2, 00:00: mouth [place] 1,250 mcg 00 weekly. Medical (50,000 Branch unit) capsule ergocalcife 2021-0 Yes [id number] Take 1 [facility] rol, 9-07 capsule by ity of vitamin d2, 00:00: mouth [place] 1,250 mcg 00 weekly. Medical (50,000 Branch unit) capsule ergocalcife 2021-0 Yes [id number] Take 1 [facility] rol, 9-07 capsule by ity of vitamin d2, 00:00: mouth [place] 1,250 mcg 00 weekly. Medical (50,000 Branch unit) capsule ergocalcife 2021-0 Yes [id number] Take 1 [facility] rol, 9-07 capsule by ity of vitamin d2, 00:00: mouth [place] 1,250 mcg 00 weekly. Medical (50,000 Branch unit) capsule ergocalcife 2021-0 Yes [id number] Take 1 [facility] rol, 9-07 capsule by ity of vitamin d2, 00:00: mouth [place] 1,250 mcg 00 weekly. Medical (50,000 Branch unit) capsule ergocalcife 2021-0 Yes [id number] Take 1 [facility] rol, 9-07 capsule by ity of vitamin d2, 00:00: mouth [place] 1,250 mcg 00 weekly. Medical (50,000 Branch unit) capsule ergocalcife 2021-0 Yes [id number] Take 1 [facility] rol, 9-07 capsule by ity of vitamin d2, 00:00: mouth [place] 1,250 mcg 00 weekly. Medical (50,000 Branch unit) capsule ergocalcife 2021-0 Yes [id number] Take 1 [facility] rol, 9-07 capsule by ity of vitamin d2, 00:00: mouth [place] 1,250 mcg 00 weekly. Medical (50,000 Branch unit) capsule ergocalcife 2021-0 Yes [id number] Take 1 [facility] rol, 9-07 capsule by ity of vitamin d2, 00:00: mouth [place] 1,250 mcg 00 weekly. Medical (50,000 Branch unit) capsule ergocalcife 2021-0 Yes [id number] Take 1 [facility] rol, 9-07 capsule by ity of vitamin d2, 00:00: mouth [place] 1,250 mcg 00 weekly. Medical (50,000 Branch unit) capsule ergocalcife 2021-0 Yes [id number] Take 1 [facility] rol, 9-07 capsule by ity of vitamin d2, 00:00: mouth [place] 1,250 mcg 00 weekly. Medical (50,000 Branch unit) capsule lisinopril 2020-0 Yes 40mg Take 40 mg U nivers 40 mg 9-01 by mouth ity of tablet 11:11: daily. [place] 05 [facility] Branch amLODIPine 2020-0 Yes 10mg Take 10 mg U nivers (NORVASC) 9-01 by mouth ity of 10 mg 11:11: daily. [place] tablet 05 [facility] Branch lisinopril 0 Yes 40mg Take 40 mg U nivers 40 mg -01 by mouth ity of tablet 11:11: daily. [place] 05 [facility] Branch amLODIPine 0 Yes 10mg Take 10 mg U nivers (NORVASC) 9-01 by mouth ity of 10 mg 11:11: daily. [place] tablet 05 [facility] Branch amLODIPine 0 Yes 10mg Take 10 mg U nivers (NORVASC) 9- by mouth ity of 10 mg 11:11: daily. [place] tablet 05 [facility] Branch amLODIPine 0 Yes 10mg Take 10 mg U nivers (NORVASC) 9-01 by mouth ity of 10 mg 11:11: daily. [place] tablet 05 [facility] Branch amLODIPine 0 Yes 10mg Take 10 mg U nivers (NORVASC) 9- by mouth ity of 10 mg 11:11: daily. [place] tablet 05 [facility] amLODIPine 0 Yes 10mg Take 10 mg U nivers (NORVASC) 9- by mouth ity of 10 mg 11:11: daily. [place] tablet 05 [facility] amLODIPine 0 Yes 10mg Take 10 mg U nivers (NORVASC) 9-01 by mouth ity of 10 mg 11:11: daily. [place] tablet 05 [facility] amLODIPine 0 Yes 10mg Take 10 mg U nivers (NORVASC) 9-01 by mouth ity of 10 mg 11:11: daily. [place] tablet 05 [facility] amLODIPine 0 Yes 10mg Take 10 mg U nivers (NORVASC) 9-01 by mouth ity of 10 mg 11:11: daily. [place] tablet 05 [facility] amLODIPine 0 Yes 10mg Take 10 mg U nivers (NORVASC) 9-01 by mouth ity of 10 mg 11:11: daily. [place] tablet 05 [facility] amLODIPine 2020-0 Yes 10mg Take 10 [...] 10 mg 11:11: daily. [place] tablet 05 [facility] amLODIPine 0 Yes 10mg Take 10 mg U nivers (NORVASC) 9- by mouth ity of 10 mg 11:11: daily. [place] tablet 05 [facility] Branch amLODIPine 0 Yes 10mg Take 10 mg U nivers (NORVASC) 9- by mouth ity of 10 mg 11:11: daily. [place] tablet 05 [facility] Branch amLODIPine 0 Yes 10mg Take 10 mg U nivers (NORVASC) 9-01 by mouth ity of 10 mg 11:11: daily. [place] tablet 05 [facility] amLODIPine 0 Yes 10mg Take 10 mg U nivers (NORVASC) 9- by mouth ity of 10 mg 11:11: daily. [place] tablet 05 [facility] Branch amLODIPine 0 Yes 10mg Take 10 mg U nivers (NORVASC) 9-01 by mouth ity of 10 mg 11:11: daily. [place] tablet 05 [facility] amLODIPine 0 Yes 10mg Take 10 mg U nivers (NORVASC) 9-01 by mouth ity of 10 mg 11:11: daily. [place] tablet 05 [facility] Branch amLODIPine 0 Yes 10mg Take 10 mg U nivers (NORVASC) 9-01 by mouth ity of 10 mg 11:11: daily. [place] tablet 05 [facility] Branch amLODIPine 0 Yes 10mg Take 10 [...] daily. [place] tablet 05 Medical Branch amLODIPine 2021-0 Yes 10mg Take 10 mg U nivers [...] mouth ity of 10 mg 11:11: daily. [facility] 05 [facility] amLODIPine 2020-0 Yes 10mg Take 10 mg U nivers (NORVASC) 9-01 by mouth ity of 10 mg 11:11: daily. [place] tablet 05 [facility] aspirin 81 2020-0 Yes 81mg Take 81 mg U nivers mg chewable 9-01 by mouth ity of tablet 11:11: daily. [address] aspirin 81 2020-0 Yes 81mg Take 81 mg U nivers mg chewable 9-01 by mouth ity of tablet 11:11: daily. [address] aspirin 81 2020-0 Yes 81mg Take 81 mg U nivers mg chewable 9-01 by mouth ity of tablet 11:11: daily. [address] aspirin 81 2020-0 Yes 81mg Take 81 mg U nivers mg chewable 9-01 by mouth ity of tablet 11:11: daily. [address] aspirin 81 2020-0 Yes 81mg Take 81 mg U nivers mg chewable 9-01 by mouth ity of tablet 11:11: daily. [address] aspirin 81 2020-0 Yes 81mg Take 81 mg U nivers mg chewable 9-01 by mouth ity of tablet 11:11: daily. [address] aspirin 81 2020-0 Yes 81mg Take 81 mg U nivers mg chewable 9-01 by mouth ity of tablet 11:11: daily. [address] aspirin 81 2020-0 Yes 81mg Take 81 mg U nivers mg chewable 9-01 by mouth ity of tablet 11:11: daily. [address] aspirin 81 2020-0 Yes 81mg Take 81 mg U nivers mg chewable 9-01 by mouth ity of tablet 11:11: daily. [address] aspirin 81 202-0 Yes 81mg Take 81 mg U nivers mg chewable 9-01 by mouth ity of tablet 11:11: daily. [address] aspirin 81 202-0 Yes 81mg Take 81 mg U nivers mg chewable 9-01 by mouth ity of tablet 11:11: daily. [address] aspirin 81 2020-0 Yes 81mg Take 81 mg U nivers mg chewable 9-01 by mouth ity of tablet 11:11: daily. [address] aspirin 81 202-0 Yes 81mg Take 81 mg U nivers mg chewable 9-01 by mouth ity of tablet 11:11: daily. [address] Branch aspirin 81 2021-0 Yes 81mg Take 81 mg U nivers mg chewable 9-01 by mouth ity of tablet 11:11: daily. [address] aspirin 81 202-0 Yes 81mg Take 81 mg U nivers mg chewable 9-01 by mouth ity of tablet 11:11: daily. [address] aspirin 81 202-0 Yes 81mg Take 81 mg U nivers mg chewable 9-01 by mouth ity of tablet 11:11: daily. [address] aspirin 81 202-0 Yes 81mg Take 81 mg U nivers mg chewable 9-01 by mouth ity of tablet 11:11: daily. [address] aspirin 81 202-0 Yes 81mg Take 81 mg U nivers mg chewable 9-01 by mouth ity of tablet 11:11: daily. [address] aspirin 81 2020-0 Yes 81mg Take 81 mg U nivers mg chewable 9-01 by mouth ity of tablet 11:11: daily. [address] aspirin 81 202-0 Yes 81mg Take 81 mg U nivers mg chewable 9-01 by mouth ity of tablet 11:11: daily. [address] aspirin 81 202-0 Yes 81mg Take 81 mg U nivers mg chewable 9-01 by mouth ity of tablet 11:11: daily. [address] aspirin 81 202-0 Yes 81mg Take 81 mg U nivers mg chewable 9-01 by mouth ity of tablet 11:11: daily. [address] aspirin 81 202-0 Yes 81mg Take 81 mg U nivers mg chewable 9-01 by mouth ity of tablet 11:11: daily. [address] aspirin 81 2021-0 Yes 81mg Take 81 mg U nivers mg chewable 9-01 by mouth ity of tablet 11:11: daily. [address] aspirin 81 2021-0 Yes 81mg Take 81 mg U nivers mg chewable 9-01 by mouth ity of tablet 11:11: daily. [address] aspirin 81 2021-0 Yes 81mg Take 81 mg U nivers mg chewable 9-01 by mouth ity of tablet 11:11: daily. [address] aspirin 81 202-0 Yes 81mg Take 81 mg U nivers mg chewable 9-01 by mouth ity of tablet 11:11: daily. [address] Branch aspirin 81 202-0 Yes 81mg Take 81 mg U nivers mg chewable 9-01 by mouth ity of tablet 11:11: daily. [address] aspirin 81 202-0 Yes 81mg Take 81 mg U nivers mg chewable 9-01 by mouth ity of tablet 11:11: daily. [address] aspirin 81 202-0 Yes 81mg Take 81 mg U nivers mg chewable 9-01 by mouth ity of tablet 11:11: daily. [address] aspirin 81 202-0 Yes 81mg Take 81 mg U nivers mg chewable 9-01 by mouth ity of tablet 11:11: daily. [address] aspirin 81 202-0 Yes 81mg Take 81 mg U nivers mg chewable 9-01 by mouth ity of tablet 11:11: daily. [address] aspirin 81 202-0 Yes 81mg Take 81 mg U nivers mg chewable 9-01 by mouth ity of tablet 11:11: daily. [address] aspirin 81 202-0 Yes 81mg Take 81 mg U nivers mg chewable 9-01 by mouth ity of tablet 11:11: daily. [address] aspirin 81 202-0 Yes 81mg Take 81 mg U nivers mg chewable 9-01 by mouth ity of tablet 11:11: daily. [address] aspirin 81 202-0 Yes 81mg Take 81 mg U nivers mg chewable 9-01 by mouth ity of tablet 11:11: daily. [address] aspirin 81 2021-0 Yes 81mg Take 81 mg U nivers mg chewable 9-01 by mouth ity of tablet 11:11: daily. [address] aspirin 81 2021-0 Yes 81mg Take 81 mg U nivers mg chewable 9-01 by mouth ity of tablet 11:11: daily. [address] aspirin 81 2021-0 Yes 81mg Take 81 mg U nivers mg chewable 9-01 by mouth ity of tablet 11:11: daily. [address] aspirin 81 2021-0 Yes 81mg Take 81 mg U nivers mg chewable 9-01 by mouth ity of tablet 11:11: daily. [address] Branch aspirin 81 2021-0 Yes 81mg Take 81 mg U nivers mg chewable 9-01 by mouth ity of tablet 11:11: daily. [address] aspirin 81 202-0 Yes 81mg Take 81 mg U nivers mg chewable 9-01 by mouth ity of tablet 11:11: daily. [address] aspirin 81 202-0 Yes 81mg Take 81 mg U nivers mg chewable 9-01 by mouth ity of tablet 11:11: daily. [address] aspirin 81 2021-0 Yes 81mg Take 81 mg U nivers mg chewable 9-01 by mouth ity of tablet 11:11: daily. [address] aspirin 81 202-0 Yes 81mg Take 81 mg U nivers mg chewable 9-01 by mouth ity of tablet 11:11: daily. [address] aspirin 81 2020-0 Yes 81mg Take 81 mg U nivers mg chewable 9-01 by mouth ity of tablet 11:11: daily. [address] aspirin 81 202-0 Yes 81mg Take 81 mg U nivers mg chewable 9-01 by mouth ity of tablet 11:11: daily. [address] aspirin 81 202-0 Yes 81mg Take 81 mg U nivers mg chewable 9-01 by mouth ity of tablet 11:11: daily. [address] aspirin 81 202-0 Yes 81mg Take 81 mg U nivers mg chewable 9-01 by mouth ity of tablet 11:11: daily. [address] aspirin 81 2021-0 Yes 81mg Take 81 mg U nivers mg chewable 9-01 by mouth ity of tablet 11:11: daily. [address] aspirin 81 2021-0 Yes 81mg Take 81 mg U nivers mg chewable 9-01 by mouth ity of tablet 11:11: daily. [address] aspirin 81 2021-0 Yes 81mg Take 81 mg U nivers mg chewable 9-01 by mouth ity of tablet 11:11: daily. [address] aspirin 81 2021-0 Yes 81mg Take 81 mg U nivers mg chewable 9-01 by mouth ity of tablet 11:11: daily. [address] aspirin 81 2020-0 Yes 81mg Take 81 mg U nivers mg chewable 9-01 by mouth ity of tablet 11:11: daily. [address] aspirin 81 2020-0 Yes 81mg Take 81 mg U nivers mg chewable 9-01 by mouth ity of tablet 11:11: daily. [address] aspirin 81 2020-0 Yes 81mg Take 81 mg U nivers mg chewable 9-01 by mouth ity of tablet 11:11: daily. [address] aspirin 81 2020-0 Yes 81mg Take 81 mg U nivers mg chewable 9-01 by mouth ity of tablet 11:11: daily. [address] aspirin 81 2020-0 Yes 81mg Take 81 mg U nivers mg chewable 9-01 by mouth ity of tablet 11:11: daily. [address] aspirin 81 2020-0 Yes 81mg Take 81 mg U nivers mg chewable 9-01 by mouth ity of tablet 11:11: daily. [address] aspirin 81 2020-0 Yes 81mg Take 81 mg U nivers mg chewable 9-01 by mouth ity of tablet 11:11: daily. [address] aspirin 81 2020-0 Yes 81mg Take 81 mg U nivers mg chewable 9-01 by mouth ity of tablet 11:11: daily. [address] Immunizations Ordered Filled Immunization Date Status Comments [facility] e Immunization Name Name SARS-COV-2 COVID-19 2022-05-20 Completed Unive rsity of VACCINE, BIVALENT 00:00:00 [facility] edical (MODERNA BOOSTER) Branch SARS-COV-2 COVID-19 2022-05-20 Completed Unive rsity of VACCINE, BIVALENT 00:00:00 [facility] edical (MODERNA BOOSTER) Branch SARS-COV-2 COVID-19 2022-05-20 Completed Unive rsity of VACCINE, BIVALENT 00:00:00 [facility] edical (MODERNA BOOSTER) Branch SARS-COV-2 COVID-19 2022-05-20 Completed Unive rsity of VACCINE, BIVALENT 00:00:00 [facility] edical (MODERNA BOOSTER) Branch SARS-COV-2 COVID-19 2022-05-20 [...] Completed Unive rsity of VACCINE, BIVALENT 00:00:00 [facility] edical (MODERNA BOOSTER) Branch SARS-COV-2 COVID-19 2022-05-20 Completed Unive rsity of VACCINE, BIVALENT 00:00:00 [facility] edical (MODERNA BOOSTER) Branch SARS-COV-2 COVID-19 2022-05-20 Completed Unive rsity of VACCINE, BIVALENT 00:00:00 [facility] edical (MODERNA BOOSTER) Branch SARS-COV-2 COVID-19 2022-05-20 Completed Unive rsity of VACCINE, BIVALENT 00:00:00 [facility] edical (MODERNA BOOSTER) Branch SARS-COV-2 COVID-19 2022-05-20 Completed Unive rsity of VACCINE, BIVALENT 00:00:00 [facility] edical (MODERNA BOOSTER) Branch SARS-COV-2 COVID-19 2022-05-20 Completed Unive rsity of VACCINE, BIVALENT 00:00:00 [facility] edical (MODERNA BOOSTER) Branch SARS-COV-2 COVID-19 2022-05-20 Completed Unive rsity of VACCINE, BIVALENT 00:00:00 [facility] edical (MODERNA BOOSTER) Branch SARS-COV-2 COVID-19 2022-05-20 Completed Unive rsity of VACCINE, BIVALENT 00:00:00 [facility] edical (MODERNA BOOSTER) Branch Influenza Virus 2022-05-19 Completed Universit y of Vaccine [facility], 00:00:00 [place] [facility] dical Preserv and ABX Branch Free [...] y of Vaccine [facility], 00:00:00 [place]ical Preserv and ABX Branch Free 6 [...] [facility] dical Preserv and ABX Branch Free 6 MO-64 YRS SARS-COV-2 COVID-19 2020-09-15 Completed Unive rsity of VACCINE - (MODERNA) 00:00:00 [place] [facility] SARS-COV-2 COVID-19 2020-09-15 Completed Unive rsity of VACCINE - (MODERNA) 00:00:00 [place] [facility] SARS-COV-2 COVID-19 2020-09-15 Completed Unive rsity of VACCINE - (MODERNA) 00:00:00 [place] [facility] SARS-COV-2 COVID-19 2020-09-15 Completed Unive rsity of VACCINE - (MODERNA) 00:00:00 [place] [facility] SARS-COV-2 COVID-19 2020-09-15 Completed Unive rsity of VACCINE - (MODERNA) 00:00:00 [place] [facility] SARS-COV-2 COVID-19 2020-09-15 Completed Unive rsity of VACCINE - (MODERNA) 00:00:00 [place] [facility] SARS-COV-2 COVID-19 2020-09-15 Completed Unive rsity of VACCINE - (MODERNA) 00:00:00 [place] [facility] SARS-COV-2 COVID-19 2020-09-15 Completed Unive rsity of VACCINE - (MODERNA) 00:00:00 [place] [facility] SARS-COV-2 COVID-19 2020-09-15 Completed Unive rsity of VACCINE - (MODERNA) 00:00:00 [place] [facility] SARS-COV-2 COVID-19 2020-09-15 Completed Unive rsity of VACCINE - (MODERNA) 00:00:00 [place] [facility] SARS-COV-2 COVID-19 2020-09-15 Completed Unive rsity of VACCINE - (MODERNA) 00:00:00 [place] [facility] SARS-COV-2 COVID-19 2020-09-15 Completed Unive rsity of VACCINE - (MODERNA) 00:00:00 [place] [facility] SARS-COV-2 COVID-19 2020-09-15 Completed Unive rsity of VACCINE - (MODERNA) 00:00:00 [place] [facility] SARS-COV-2 COVID-19 2020-09-15 Completed Unive rsity of VACCINE - (MODERNA) 00:00:00 [facility] SARS-COV-2 COVID-19 2020-09-15 Completed Unive rsity of VACCINE - (MODERNA) 00:00:00 [place] [facility] SARS-COV-2 COVID-19 2020-09-15 Completed Unive rsity of VACCINE - (MODERNA) 00:00:00 [place] [facility] SARS-COV-2 COVID-19 2020-09-15 Completed Unive rsity of VACCINE - (MODERNA) 00:00:00 [place] [facility] SARS-COV-2 COVID-19 2020-09-15 Completed Unive rsity of VACCINE - (MODERNA) 00:00:00 [place] [facility] SARS-COV-2 COVID-19 2020-09-15 Completed Unive rsity of VACCINE - (MODERNA) 00:00:00 [place] [facility] SARS-COV-2 COVID-19 2020-09-15 Completed Unive rsity of VACCINE - (MODERNA) 00:00:00 [place] [facility] SARS-COV-2 COVID-19 2020-09-15 Completed Unive rsity of VACCINE - (MODERNA) 00:00:00 [facility] SARS-COV-2 COVID-19 2020-09-15 Completed Unive rsity of VACCINE - (MODERNA) 00:00:00 [place] [facility] SARS-COV-2 COVID-19 2020-09-15 Completed Unive rsity of VACCINE - (MODERNA) 00:00:00 [place] [facility] SARS-COV-2 COVID-19 2020-09-15 Completed Unive rsity of VACCINE - (MODERNA) 00:00:00 [place] [facility] SARS-COV-2 COVID-19 2020-09-15 Completed Unive rsity of VACCINE - (MODERNA) 00:00:00 [place] [facility] SARS-COV-2 COVID-19 2020-09-15 Completed Unive rsity of VACCINE - (MODERNA) 00:00:00 [place] [facility] SARS-COV-2 COVID-19 2020-09-15 Completed Unive rsity of VACCINE - (MODERNA) 00:00:00 [place] [facility] SARS-COV-2 COVID-19 2020-09-15 Completed Unive rsity of VACCINE - (MODERNA) 00:00:00 [place] [facility] SARS-COV-2 COVID-19 2020-09-15 Completed Unive rsity of VACCINE - (MODERNA) 00:00:00 [place] [facility] SARS-COV-2 COVID-19 2020-09-15 Completed Unive rsity of VACCINE - (MODERNA) 00:00:00 [place] [facility] SARS-COV-2 COVID-19 2020-09-15 Completed Unive rsity of VACCINE - (MODERNA) 00:00:00 [place] [facility] SARS-COV-2 COVID-19 2020-09-15 Completed Unive rsity of VACCINE - (MODERNA) 00:00:00 [place] [facility] SARS-COV-2 COVID-19 2020-09-15 Completed Unive rsity of VACCINE - (MODERNA) 00:00:00 [place] [facility] SARS-COV-2 COVID-19 2020-09-15 Completed Unive rsity of VACCINE - (MODERNA) 00:00:00 [place] [facility] SARS-COV-2 COVID-19 2020-09-15 Completed Unive rsity of VACCINE - (MODERNA) 00:00:00 [facility] SARS-COV-2 COVID-19 2020-09-15 Completed Unive rsity of VACCINE - (MODERNA) 00:00:00 [place] [facility] SARS-COV-2 COVID-19 2020-09-15 Completed Unive rsity of VACCINE - (MODERNA) 00:00:00 [place] [facility] SARS-COV-2 COVID-19 2020-09-15 Completed Unive rsity of VACCINE - (MODERNA) 00:00:00 [place] [facility] SARS-COV-2 COVID-19 2020-08-21 Completed Unive rsity of VACCINE - (MODERNA) 00:00:00 [place] [facility] SARS-COV-2 COVID-19 2020-08-21 Completed Unive rsity of VACCINE - (MODERNA) 00:00:00 [place] [facility] SARS-COV-2 COVID-19 2020-08-21 Completed Unive rsity of VACCINE - (MODERNA) 00:00:00 [place] [facility] SARS-COV-2 COVID-19 2020-08-21 Completed Unive rsity of VACCINE - (MODERNA) 00:00:00 [place] [facility] SARS-COV-2 COVID-19 2020-08-21 Completed Unive rsity of VACCINE - (MODERNA) 00:00:00 [place] [facility] SARS-COV-2 COVID-19 2020-08-21 Completed Unive rsity of VACCINE - (MODERNA) 00:00:00 [place] [facility] SARS-COV-2 COVID-19 2020-08-21 Completed Unive rsity of VACCINE - (MODERNA) 00:00:00 [place] [facility] SARS-COV-2 COVID-19 2020-08-21 Completed Unive rsity of VACCINE - (MODERNA) 00:00:00 [place] [facility] SARS-COV-2 COVID-19 2020-08-21 Completed Unive rsity of VACCINE - (MODERNA) 00:00:00 [place] [facility] SARS-COV-2 COVID-19 2020-08-21 Completed Unive rsity of VACCINE - (MODERNA) 00:00:00 [place] [facility] SARS-COV-2 COVID-19 2020-08-21 Completed Unive rsity of VACCINE - (MODERNA) 00:00:00 [place] [facility] SARS-COV-2 COVID-19 2020-08-21 Completed Unive rsity of VACCINE - (MODERNA) 00:00:00 [place] [facility] SARS-COV-2 COVID-19 2020-08-21 Completed Unive rsity of VACCINE - (MODERNA) 00:00:00 [facility] SARS-COV-2 COVID-19 2020-08-21 Completed Unive rsity of VACCINE - (MODERNA) 00:00:00 [place] [facility] SARS-COV-2 COVID-19 2020-08-21 Completed Unive rsity of VACCINE - (MODERNA) 00:00:00 [place] [facility] SARS-COV-2 COVID-19 2020-08-21 Completed Unive rsity of VACCINE - (MODERNA) 00:00:00 [place] [facility] SARS-COV-2 COVID-19 2020-08-21 Completed Unive rsity of VACCINE - (MODERNA) 00:00:00 [facility] SARS-COV-2 COVID-19 2020-08-21 Completed Unive rsity of VACCINE - (MODERNA) 00:00:00 [facility] SARS-COV-2 COVID-19 2020-08-21 Completed Unive rsity of VACCINE - (MODERNA) 00:00:00 [place] [facility] SARS-COV-2 COVID-19 2020-08-21 Completed Unive rsity of VACCINE - (MODERNA) 00:00:00 [facility] SARS-COV-2 COVID-19 2020-08-21 Completed Unive rsity of VACCINE - (MODERNA) 00:00:00 [facility] SARS-COV-2 COVID-19 2020-08-21 Completed Unive rsity of VACCINE - (MODERNA) 00:00:00 [facility] SARS-COV-2 COVID-19 2020-08-21 Completed Unive rsity of VACCINE - (MODERNA) 00:00:00 [facility] SARS-COV-2 COVID-19 2020-08-21 Completed Unive rsity of VACCINE - (MODERNA) 00:00:00 [place] [facility] SARS-COV-2 COVID-19 2020-08-21 Completed Unive rsity of VACCINE - (MODERNA) 00:00:00 [place] [facility] SARS-COV-2 COVID-19 2020-08-21 Completed Unive rsity of VACCINE - (MODERNA) 00:00:00 [facility] SARS-COV-2 COVID-19 2020-08-21 Completed Unive rsity of VACCINE - (MODERNA) 00:00:00 [place] [facility] SARS-COV-2 COVID-19 2020-08-21 Completed Unive rsity of VACCINE - (MODERNA) 00:00:00 [place] [facility] SARS-COV-2 COVID-19 2020-08-21 Completed Unive rsity of VACCINE - (MODERNA) 00:00:00 [place] [facility] SARS-COV-2 COVID-19 2020-08-21 Completed Unive rsity of VACCINE - (MODERNA) 00:00:00 [place] [facility] SARS-COV-2 COVID-19 2020-08-21 Completed Unive rsity of VACCINE - (MODERNA) 00:00:00 [place] [facility] SARS-COV-2 COVID-19 2020-08-21 Completed Unive rsity of VACCINE - (MODERNA) 00:00:00 [place] [facility] SARS-COV-2 COVID-19 2020-08-21 Completed Unive rsity of VACCINE - (MODERNA) 00:00:00 [facility] SARS-COV-2 COVID-19 2020-08-21 Completed Unive rsity of VACCINE - (MODERNA) 00:00:00 [facility] SARS-COV-2 COVID-19 2020-08-21 Completed Unive rsity of VACCINE - (MODERNA) 00:00:00 [facility] SARS-COV-2 COVID-19 2020-08-21 Completed Unive rsity of VACCINE - (MODERNA) 00:00:00 [facility] SARS-COV-2 COVID-19 2020-08-21 Completed Unive rsity of VACCINE - (MODERNA) 00:00:00 [facility] SARS-COV-2 COVID-19 2020-08-21 Completed Unive rsity of VACCINE - (MODERNA) 00:00:00 [facility] Vital Signs Vital Name Observation Time Observation Value Comments Source Systolic blood 2022-10-19 14:28:00 184 mm[Hg] Univer sity of pressure [facility] Diastolic blood 2022-10-19 14:28:00 65 mm[Hg] Unive rsity of pressure [facility] Heart rate 2022-10-19 14:20:00 74 /min [facility] Body temperature 2022-10-19 14:20:00 36.44 Nehal [facility] 2022-10-19 14:20:00 18 /min [facility] Body height 2022-10-19 14:20:00 170.2 cm [facility] Body weight 2022-10-19 14:20:00 68.221 kg [facility] BMI 2022-10-19 14:20:00 23.56 kg/m2 [facility] Oxygen saturation in 2022-10-19 14:20:00 99 /min [facility] of Arterial blood by [facility] Pulse oximetry Branch Systolic blood 2022-10-18 14:54:00 139 mm[Hg] Univer sity of [facility] Diastolic blood 2022-10-18 14:54:00 78 mm[Hg] Unive rsity of pressure [facility] Heart rate 2022-10-18 14:54:00 63 /min [facility] Oxygen saturation in 2022-10-18 14:54:00 99 /min [facility] Arterial blood by [facility] Pulse oximetry Branch Body temperature 2022-10-18 14:53:00 36.39 Nehal Univ [facility] Body height 2022-10-18 14:53:00 170.2 cm [facility] Body weight 2022-10-18 14:53:00 67.767 kg [facility] BMI 2022-10-18 14:53:00 23.40 kg/m2 [facility] Systolic blood 2022-07-21 14:34:00 168 mm[Hg] Univer sity of pressure [facility] Diastolic blood 2022-07-21 14:34:00 77 mm[Hg] Unive rsity of pressure [facility] Heart rate 2022-07-21 14:28:00 59 /min [facility] Body height 2022-07-21 14:28:00 170.2 cm [facility] Body weight 2022-07-21 14:28:00 68.765 kg [facility] BMI 2022-07-21 14:28:00 23.74 kg/m2 [facility] Oxygen saturation in 2022-07-21 14:28:00 99 /min [facility] Arterial blood by [facility] Pulse oximetry Branch Systolic blood 2022-05-19 17:18:00 150 mm[Hg] Univer sity of pressure [facility] Diastolic blood 2022-05-19 17:18:00 69 mm[Hg] Unive rsity of pressure [facility] Heart rate 2022-05-19 17:17:00 58 /min [facility] Body temperature 2022-05-19 17:17:[address] [facility] Body height 2022-05-19 17:17:00 170.2 cm [facility] Body weight 2022-05-19 17:17:00 68.04 kg [facility] BMI 2022-05-19 17:17:00 23.49 kg/m2 [facility] Oxygen saturation in 2022-05-19 17:17:00 98 /min [facility] Arterial blood by [facility] Pulse oximetry Branch Procedures Procedure Date / Time Performing Clinician Source Performed EXTERNAL PROVIDER RECORDS 2022-12-29 05:01:00 Doctor Indio, [facility] Name [facility] [place] PHYSICIAN ORDERS 2022-12-12 05:01:00 Doctor Indio, [facility] Name Medical Branch PHYSICIAN ORDERS 2022-09-09 06:01:00 Doctor Indio, [facility] Name Medical [facility] INSURANCE CORRESPONDENCE 2022-08-26 06:01:00 Doctor Indio, [facility] Name [facility] EXTERNAL PROVIDER RECORDS 2022-07-29 06:01:00 Doctor Indio, [facility] Name Medical [facility] REFERRAL- 2022-07-15 06:01:00 Doctor Indio, [facility] REQUEST/RESPONSE [facility] [place] URINALYSIS 2022-06-21 14:01:00 Susy Hernandez [facility] [place] PHYSICIAN ORDERS 2022-06-21 06:01:00 Doctor Indio [facility] Name [facility] [place] FLU VACC ([id number]), 6 2022-05-19 17:26:04 Kayode Pereira [facility] MO-62 YRS, .5ML, IM, QUAD Medica l Branch (FLUCELVAX) INSURANCE CORRESPONDENCE 2022-05-03 05:01:00 Doctor Borjas [facility] Name [facility] CBC WITH DIFF 2022-03-29 14:10:00 Susy Hernandez [facility] [place] PHYSICIAN ORDERS 2022-03-29 05:01:00 Doctor Borjas [facility] Name [facility] [place] Injection procedure for 2017-05-18 18:26:00 Hussein Holden shoulder arthrography or enhanced CT/MRI shoulder arthrography Encounters Start End Encounter Admission Attending Care Care Encounter Source Date/Time Date/Time Type Type Clinicians Facility Department ID 2021-05-24 Emergency [facility] [id number] Univers [facility]24 Emergency [facility] [id number] Univers 17:13:06 [facility] 2021-05-23 Outpatient R MASSIMO [facility] PATRICK [id number] Univers 07:16:18 CHAPARRO [facility] 2023-01-30 2023-01-30 [facility] 1.2.840.114 [id number] Univers 00:00:00 00:00:00 [facility] 350.1.13.10 it y [facility] 4.2.7.2.686 Madhu as KENN?BLEA [phone] [address] [facility] 2023-01-12 2023-01-12 [facility] 1.2.840.114 [id number] Univers 00:00:00 00:00:00 [facility] 350.1.13.10 it y of [place] 4.2.7.2.686 Madhu as KENN?BLEA [id number] [address] [facility] 2023-01-11 2023-01-11 [facility] 1.2.840.114 [id number] Univers 00:00:00 00:00:00 [facility] 350.1.13.10 it y of [place] 4.2.7.2.686 Madhu as KENN?BLEA [id number] [address] [facility] 2022-12-29 2022-12-29 Orders Doctor VIOLETTA 1.2.840.114 [id number] Univers 00:00:00 00:00:00 Only Unassigned, SATHISH 350.1.13.10 ity of [employer] [facility] 4.2.7.2.686 Madhu as [id number] [address] 2022-12-26 2022-12-26 Wilton [facility] 1.2.375.393 [id number] Univers 00:00:00 00:00:00 [place] [facility] 350.1.13.10 it y of [place] 4.2.7.2.686 Madhu as KENN?BLEA [id number] [place] dicedi RYAN 0[address] [facility] 2022-12-15 2022-12-15 [place] [facility] 1.2.198.353 [id number] Univers 00:00:00 00:00:00 Kayode HEALTH 350.1.13.10 it y of [place] 4.2.7.2.686 Madhu as KENN?BLEA [id number] [place] he[place] TORRES [address] [facility] 2022-12-15 2022-12-15 Refill [facility] 1.2.840.114 [id number] Univers 00:00:00 00:00:00 Kayode HEALTH 350.1.13.10 it y of [place] 4.2.7.2.686 Madhu as KENN?BLEA [id number] [place] he[place] [address] [facility] 2022-12-14 2022-12-14 [facility] 1.2.840.114 [id number] Univers 00:00:00 00:00:00 Kayode HEALTH 350.1.13.10 it y of [place] 4.2.7.2.686 Madhu as KENN?BLEA [id number] [place] [address] [facility] 2022-12-12 2022-12-12 Brass Burnisher Nathanael, Adc Lab Main [facility] 1.2.8 40.114 [id number] Univers 09:15:00 09:30:00 Visit Ja Sparks 350.1.13.10 ity of [place] [id number] [place] v[address] 2022-12-12 2022-12-12 Outpatient R CLARE [facility] [id number] Univers 09:15:00 09:15:00 JA turner [facility] 2022-12-12 2022-12-12 Orders Doctor SHIPLEY 1.2.840.114 [id number] Univers 00:00:00 00:00:00 Only Unassigned, SATHISH 350.1.13.10 ity of [facility] 4.2.7.2.686 Madhu as [id number] [address] 2022-11-12 2022-11-12 Referick [facility] 1.2.840.114 [id number] Univers 00:00:00 00:00:00 [facility] 350.1.13.10 it y of [place] 4.2.7.2.686 Madhu as KENN?BLEA [id number] [address] MEDICAL OFFICE BUILDING 2022-11-07 2022-11-07 Referick [facility] 1.2.840.114 [id number] Univers 00:00:00 00:00:00 [facility] 350.1.13.10 it y of [place] 4.2.7.2.686 Madhu as KENN?BLEA [id number] [address] MEDICAL [facility] 2022-10-19 2022-10-19 Outpatient R ADAN [facility] [id number] Univers 09:30:00 10:07:04 , KRISTEN it y of [facility] 2022-10-19 2022-10-19 Office [facility] 1.2.840.114 [id number] Univers 09:30:00 10:07:04 Visit , Kristen [facility] 350.1.13.10 ity of [facility] 4.2.7.2.686 Madhu as KENN?BLEA [id number] [address] MEDICAL [facility] 2022-10-18 2022-10-18 Outpatient R MICHAEL [facility] [id number] Univers 10:00:00 10:10:20 KAYODE ity of [facility] 2022-10-18 2022-10-18 Office [facility] 1.2.840.114 [id number] Univers 10:00:00 10:10:20 Visit [facility] 350.1.13.10 it y of [place] 4.2.7.2.686 Madhu as KENN?BLEA [id number] [address] [facility] 2022-10-16 2022-10-16 Referick [facility] 1.2.840.114 [id number] Univers 00:00:00 00:00:00 Kayode HEALTH 350.1.13.10 it y of [place] 4.2.7.2.686 Madhu as KENN?BLEA [id number] [place] he[place] TORRES [address] [place] [address] [facility] 2022-10-14 2022-10-14 Refill [facility] 1.2.840.114 [id number] Univers 00:00:00 00:00:00 Kayode HEALTH 350.1.13.10 it y of [place] 4.2.7.2.686 Madhu as KENN?BLEA [id number] [place] he[place] TORRES [address] [place] [address] [facility] 2022-09-16 2022-09-16 Telephone [facility] 1.2.230.699 [id number] Univers 00:00:00 00:00:00 Kayode HEALTH 350.1.13.10 it y of [place] 4.2.7.2.686 Madhu as KENN?BLEA [id number] [place] he[place] TORRES [address] [place] [address] 2022-09-14 2022-09-14 Telephone [facility] 1.2.906.978 [id number] Univers 00:00:00 00:00:00 Kayode HEALTH 350.1.13.10 it y of [place] 4.2.7.2.686 Madhu as KENN?BLEA [id number] [place] he[place] TORRES [address] [place] [address] 2022-09-09 2022-09-09 Brass Burnisher Nathanael, Ahsan Lab Main [facility] 1.2.8 40.114 [id number] Univers 09:45:00 10:00:00 Visit Ja Sparks 350.1.13.10 ity of [place] [phone] [place] he[place] PARKINSON [address] [place] [address] 2022-09-09 2022-09-09 Outpatient R CLARE [facility] [id number] Univers 09:45:00 09:45:00 JA turner [facility] 2022-09-09 2022-09-09 Orders Doctor SHIPLEY 1.2.840.114 [id number] Univers 00:00:00 00:00:00 Only Unassigned, SATHISH 350.1.13.10 ity of [place] [facility] 4.2.7.2.686 Madhu as [id number] [address] 2022-08-26 2022-08-26 Orders Doctor VIOLETTA 1.2.840.114 [id number] Univers 00:00:00 00:00:00 Only Unassigned, SATHISH 350.1.13.10 ity of [facility] 4.2.7.2.686 Madhu as [id number] [address] 2022-08-22 2022-08-22 Telephone [facility] 1.2.077.288 [id number] Univers 00:00:00 00:00:00 Kayode HEALTH 350.1.13.10 it y of [place] 4.2.7.2.686 Madhu as KENN?BLEA [id number] [address] [facility] 2022-08-19 2022-08-19 Telephone [facility] 1.2.439.371 [id number] Univers 00:00:00 00:00:00 Kayode HEALTH 350.1.13.10 it y of [place] 4.2.7.2.686 Madhu as KENN?BLEA [id number] [address] [facility] 2022-08-19 2022-08-19 Telephone [facility] 1.2.445.337 [id number] Univers 00:00:00 00:00:00 Kay[facility] HEALTH 350.1.13.10 it y of [place] 4.2.7.2.686 Madhu as KENN?BLEA [id number] [address] [facility] 2022-08-17 2022-08-17 Telephone [facility] 1.2.124.813 [id number] Univers 00:00:00 00:00:00 [facility] HE[facility] 350.1.13.10 it y of [place] 4.2.7.2.686 Madhu as KENN?BLEA [id number] [address] [facility] 2022-08-15 2022-08-15 Refill [facility] 1.2.840.114 [id number] Univers 00:00:00 00:00:00 Kay[facility] HEALTH 350.1.13.10 it y of [place] 4.2.7.2.686 Madhu as KENN?BLEA [phone] [place] he[place] TORRES [address] [place] MEDICAL OFFICE BUILDING 2022-07-29 2022-07-29 Brass Burnisher Nathanael, Adc Lab Main [facility] 1.2.8 40.114 [id number] Univers 12:15:00 12:30:00 Visit Ja Sparks 350.1.13.10 ity of [place] [id number] [place] hema [facility] [address] [facility] 2022-07-29 2022-07-29 Outpatient Leida SPARKS [facility] [id number] Univers 12:15:00 12:15:00 JA lorenzo [facility] 2022-07-29 2022-07-29 Orders Doctor VIOLETTA 1.2.840.114 [id number] Univers 00:00:00 00:00:00 Only Unassigned, SATHISH 350.1.13.10 ity of [employer] [facility] 4.2.7.2.686 Madhu as [id number] [address] 2022-07-22 2022-07-22 Refill [facility] 1.2.840.114 [id number] Univers 00:00:00 00:00:00 [facility] 350.1.13.10 it y of [place] 4.2.7.2.686 Madhu as KENN?BLEA [phone] [place] vip[address] MEDICAL [facility] 2022-07-21 2022-07-21 Office [facility] 1.2.840.114 [id number] Univers 08:45:00 09:00:00 Visit [facility] 350.1.13.10 it y of [facility] 4.2.7.2.686 Madhu as KENN?BLEA [id number] [address] [facility] 2022-07-21 2022-07-21 Outpatient [facility] [id number] Univers 08:45:00 08:45:00 KAYODE [facility] 2022-07-19 2022-07-19 Refill [facility] 1.2.840.114 [id number] Univers 00:00:00 00:00:00 Kayode HEALTH 350.1.13.10 it y of [place] 4.2.7.2.686 Madhu as KENN?BLEA [id number] [address] [facility] 2022-07-15 2022-07-15 Orders Doctor VIOLETTA 1.2.840.114 [id number] Univers 00:00:00 00:00:00 Only Unassigned, SATHISH 350.1.13.10 ity of [place] [employer] [facility] 4.2.7.2.686 Madhu as [id number] [address] 2022-07-11 2022-07-11 Telephone [facility] 1.2.346.743 [id number] Univers 00:00:00 00:00:00 Kayode HEALTH 350.1.13.10 it y of [facility] 4.2.7.2.686 Madhu as KENN?BLEA [phone] [address] [facility] 2022-07-11 2022-07-11 Telephone [facility] 1.2.758.970 [id number] Univers 00:00:00 00:00:00 [facility] HE[facility] 350.1.13.10 it y of [facility] 4.2.7.2.686 Madhu as KENN?BLEA [id number] [address] 2022-07-11 2022-07-11 Telephone [facility] 1.2.948.753 [id number] Univers 00:00:00 00:00:00 [facility] HE[facility] 350.1.13.10 it y of [place] 4.2.7.2.686 Madhu as KENN?BLEA [id number] [address] [facility] 2022-06-21 2022-06-21 Brass Burnisher Nathanael, Ahsan Lab Main [facility] 1.2.8 40.114 [id number] Univers 07:45:00 08:00:00 Visit Susy Hernandez [place] 350.1.13. 10 ity of [facility] 4.2.7.2.[place] [id number] [address] 2022-06-21 2022-06-21 Outpatient R DAVID [facility] [id number] Univers 07:45:00 07:45:00 SUSY ity o f [facility] 2022-06-21 2022-06-21 Orders Doctor VIOLETTA 1.2.840.114 [id number] Univers 00:00:00 00:00:00 Only Unassigned, SATHISH 350.1.13.10 ity of [place] [employer] [facility] 4.2.7.2.686 Madhu as [id number] [address] 2022-06-14 2022-06-14 Refill [facility] 1.2.840.114 [id number] Univers 00:00:00 00:00:00 Kay[facility] HEALTH 350.1.13.10 it y of [place] 4.2.7.2.686 Madhu as KENN?BLEA [id number] [address] [facility] 2022-05-19 2022-05-19 Outpatient R MICHAEL [facility] [id number] Univers 12:15:00 12:32:01 KAYODE itlorenzo [facility] 2022-05-19 2022-05-19 Office [facility] 1.2.840.114 [id number] Univers 12:15:00 12:32:01 Visit [facility] 350.1.13.10 it y of [place] 4.2.7.2.686 Madhu as KENN?BLEA [id number] [address] [facility] 2022-05-19 2022-05-19 Letter [facility] 1.2.840.114 [id number] Univers 00:00:00 00:00:00 (Out) Kay[facility] HE[facility] 350.1.13.10 it y of [place] 4.2.7.2.686 Madhu as KENN?BLEA [id number] [address] [facility] 2022-05-19 2022-05-19 Telephone [facility] 1.2.949.267 [id number] Univers 00:00:00 00:00:00 Kayode HEALTH 350.1.13.10 it y of [facility] 4.2.7.2.686 Madhu as KENN?BLEA [phone] [place] he[place] RYAN[address] [facility] 2022-05-11 2022-05-11 Jan [facility] 1.2.840.114 [id number] Univers 00:00:00 00:00:00 Kayode HEALTH 350.1.13.10 it y of [facility] 4.2.7.2.686 Madhu as KENN?BLEA [id number] [address] [facility] 2022-05-03 2022-05-03 Orders Doctor VIOLETTA 1.2.840.114 [id number] Univers 00:00:00 00:00:00 Only Unassigned, SATHISH 350.1.13.10 ity of [employer] [employer] [facility] 4.2.7.2.686 Madhu as [id number] [address] 2022-04-20 2022-04-20 Jan [facility] 1.2.840.114 [id number] Univers 00:00:00 00:00:00 [facility] 350.1.13.10 it y of [place] 4.2.7.2.686 Madhu as KENN?BLEA [id number] [address] [facility] 2022-04-15 2022-04-15 Brass Burnisher Nathanael, Ahsan Lab Main [facility] 1.2.8 40.114 [id number] Univers 12:45:00 13:00:00 Visit Susy Hernandez [place] 350.1.13. 10 ity of [place] [phone] [place] [address] 2022-04-15 2022-04-15 Outpatient R DAVID [facility] [id number] Univers 12:45:00 12:45:00 SUSY maza f [facility] 2022-04-14 2022-04-14 Jan [facility] 1.2.840.114 [id number] Univers 00:00:00 00:00:00 [facility] 350.1.13.10 it y of [place] 4.2.7.2.686 Madhu as KENN?BLEA [phone] [place] dical KNEY 0[address] [facility] 2022-03-29 2022-03-29 Brass Burnisher Ahsan Huffman Lab Main [facility] 1.2.8 40.114 [id number] Univers 08:30:00 08:45:00 Visit Susy Heranndez [place] 350.1.13. 10 ity [place]2.[place].2.[place] [id number] [place] dical IGGY [address] [facility] 2022-03-29 2022-03-29 Outpatient R DAVID [facility] [id number] Univers 08:30:00 08:30:00 SUSY truner o f [facility] 2022-03-29 2022-03-29 Telephone [facility] 1.2.343.630 [id number] Univers 00:00:00 00:00:00 [facility] 350.1.13.10 it y of [place] 4.2.7.2.686 Madhu as KENN?BLEA [id number] [place] dicedi [address] [facility] 2022-03-29 2022-03-29 Orders Doctor VIOLETTA 1.2.840.114 [id number] Univers 00:00:00 00:00:00 Only Unassigned, SATHISH 350.1.13.10 ity of [employer] [facility] 4.2.7.2.686 Madhu as [id number] [address] 2022-03-24 2022-03-24 Refill [facility] 1.2.840.114 [id number] Univers 00:00:00 00:00:00 Kay[facility] HEALTH 350.1.13.10 it y of [place] 4.2.7.2.686 Madhu as KENN?BLEA [id number] [place] dical KNEY 044 [facility] 2022-03-01 2022-03-01 Telephone [facility] 1.2.325.178 [id number] Univers 00:00:00 00:00:00 Kay[facility] HEALTH 350.1.13.10 it y of [facility] 4.2.7.2.686 Madhu as KENN?BLEA [phone] [place] dicedi TORRES [address] [place] [facility] 2022-02-24 2022-02-24 Telephone [facility] 1.2.583.350 [id number] Univers 00:00:00 00:00:00 Kay[facility] HEALTH 350.1.13.10 it y of [place] 4.2.7.2.686 Madhu as KENN?BLEA [phone] [place] dicedi KNROLLY 0[address] [facility] 2022-02-17 2022-02-17 Refill [facility] 1.2.840.114 [id number] Univers 00:00:00 00:00:00 Kay[facility] HEALTH 350.1.13.10 it y of [place] 4.2.7.2.686 Madhu as KENN?BLEA [id number] [place] dicedi TORRES [address] [place] [address] [facility] 2022-02-16 2022-02-16 Telephone [facility] 1.2.056.623 [id number] Univers 00:00:00 00:00:00 [facility] HE[facility] 350.1.13.10 it y of [place] 4.2.7.2.686 Madhu as KENN?BLEA [phone] [place] dicedi RYAN[address] [facility] 2022-02-16 2022-02-16 Letter [facility] 1.2.840.114 [id number] Univers 00:00:00 00:00:00 (Out) Kayode HEALTH 350.1.13.10 it y of [place] 4.2.7.2.686 Madhu as KENN?BLEA [id number] [place] TORRES [address] [place] [address] [facility] 2022-02-15 2022-02-15 Outpatient R MARIBEL [facility] [id number] Univers 10:00:00 10:00:00 CHRISTINA pruett [facility] 2022-02-15 2022-02-15 Laboratory Only, Ang Db Test [facility] 1.2.8 40.114 [id number] Univers 10:00:00 10:00:00 Only Christina López HEALTH 350.1.13.10 ity of [place] 4.2.7.2.686 Madhu as KENN?BLEA [phone] [place] TOR[place] [address] [facility] 2022-02-15 2022-02-15 Outpatient R MARIBEL [facility] [id number] Univers 10:00:00 09:31:54 CHRISTINA pruett [facility] 2022-02-14 2022-02-14 Outpatient R MARIBEL [facility] [id number] Univers 10:15:00 10:15:00 CHRISTINA pruett [facility] 2022-02-11 2022-02-11 Letter VIOLETTA Jones 1.2.840.114 [id number] Univers 00:00:00 00:00:00 (Out) Jacqueline Brigida SATHISH 350.1.13.10 it y of HOSPITAL 4.2.7.2.686 Madhu as [phone] [address] 2022-02-11 2022-02-11 Telephone Provider, [facility] 1.2.840.114 [id number] Univers 00:00:00 00:00:00 Ang Db HEALTH 350.1.13.10 it y of [facility] [place] 4.2.7.2.686 [place] KENN?BLEA [id number] [place] TOR[place] [address] [place] [address] [facility] 2022-02-10 2022-02-10 [facility] 1.2.840.114 [id number] Univers 11:00:00 11:00:00 Care Henok HEALTH 350.1.13.10 it y of [place] 4.2.7.2.686 Madhu as KENN?BLEA [phone] [place] [address] [place] [address] [facility] 2022-02-10 2022-02-10 Outpatient R DONAVAN [facility] [id number] Univers 11:00:00 10:54:56 HENOK ity of [facility] 2022-01-27 2022-01-27 Telephone Michael [facility] 1.2.326.002 [id number] Univers 00:00:00 00:00:00 Kayode HEALTH 350.1.13.10 it y of [place] 4.2.7.2.686 Madhu as KENN?BLEA [phone] [place] RYAN [address] [facility] 2022-01-18 2022-01-18 Brass Burnisher Nathanael, Adc Lab Main [facility] 1.2.8 40.114 [id number] Univers 07:45:00 08:00:00 Visit Ja [place] 350.1.13.10 [place]y [place]7.2.[place] E[place] [phone] [address] 2022-01-18 2022-01-18 Outpatient R CLARE [facility] [id number] Univers 07:45:00 07:45:00 JA ity [facility] [facility] 2022-01-18 2022-01-18 Orders Doctor VIOLETTA 1.2.840.114 [id number] Univers 00:00:00 00:00:00 Only Unassigned, SATHISH 350.1.13.10 ity of [employer] [facility] 4.2.7.2.686 Madhu as [phone] [address] 2022-01-03 2022-01-03 Telephone [facility] 1.2.684.079 [id number] Univers 00:00:00 00:00:00 [facility] 350.1.13.10 it y of [place] 4.2.7.2.686 Madhu as KENN?BLEA [phone] [address] [facility] 2021-12-21 2021-12-21 Refill [facility] 1.2.840.114 [id number] Univers 00:00:00 00:00:00 Kayode HEALTH 350.1.13.10 it y of [place] 4.2.7.2.686 Madhu as KENN?BLEA [phone] [address] [facility] 2021-12-08 2021-12-08 Telephone [facility] 1.2.114.635 [id number] Univers 00:00:00 00:00:00 Kayode HEALTH 350.1.13.10 it y of [place] 4.2.7.2.686 Madhu as KENN?BLEA [phone] [address] [facility] 2021-11-22 2021-11-22 Telephone [facility] 1.2.424.515 [id number] Univers 00:00:00 00:00:00 [place] [facility] 350.1.13.10 it y of [facility] 4.2.7.2.686 Madhu as KENN?BLEA [phone] [address] MEDICAL [facility] 2021-11-06 2021-11-06 Orders Doctor VIOLETTA 1.2.840.114 [id number] Univers 00:00:00 00:00:00 Only Unassigned, SATHISH 350.1.13.10 ity of [employer] [facility] 4.2.7.2.686 Madhu as [phone] [address] 2021-11-01 2021-11-01 Telephone [facility] 1.2.379.369 [id number] Univers 00:00:00 00:00:00 [place] [facility] 350.1.13.10 it y of [facility] 4.2.7.2.686 Madhu as KENN?BLEA [phone] [address] [facility] 2021-10-14 2021-10-14 [facility] [id number] Univers 09:45:00 09:45:00 KAYODE ity [facility] 2021-10-14 2021-10-14 Office [facility] 1.2.840.114 [id number] Univers 09:45:00 09:45:00 Visit [facility] 350.1.13.10 it y of [facility] 4.2.7.2.686 Madhu as KENN?BLEA [phone] [address] [facility] 2021-10-14 2021-10-14 [facility] [id number] Univers 09:45:00 09:38:09 KAYODE ity [facility] 2021-10-14 2021-10-14 Marc Pereira [facility] 1.2.840.114 [id number] Univers 00:00:00 00:00:00 (Out) Kayode HEALTH 350.1.13.10 it y of [place] 4.2.7.2.686 Madhu as KENN?BLEA [phone] [address] [facility] 2021-10-08 2021-10-08 Brass Burnisher Nathanael, Adc Lab Main [facility] 1.2.8 40.114 [id number] Univers 08:15:00 08:30:00 Visit Ja Sparks 350.1.13.10 ity of [facility] 4.2.7.2.[place] [phone] [address] 2021-10-08 2021-10-08 [facility] [id number] Univers 08:15:00 08:15:00 JA turner of [facility] 2021-10-08 2021-10-08 Orders Doctor VIOLETTA 1.2.840.114 [id number] Univers 00:00:00 00:00:00 Only Unassigned, SATHISH 350.1.13.10 ity of [employer] [facility] 4.2.7.2.686 Madhu as [phone] [address] 2021-09-21 2021-09-21 Orders Doctor SHIPLEY 1.2.840.114 [id number] Univers 00:00:00 00:00:00 Only Unassigned, SATHISH 350.1.13.10 ity of [employer] [facility]OSP[facility] 4.2.7.2.686 Madhu as [phone] [address] 2021-08-27 2021-08-27 Brass Burnisher Nathanael, Adc Lab Main [facility] 1.2.8 40.114 [id number] Univers 08:00:00 08:15:00 Visit Lisha Hernandezalf Roth KERRYGHANSHYAM 350.1.13. 10 ity of [facility] 4.2.7.2.[place] [phone] [address] 2021-08-27 2021-08-27 Outpatient [facility] [id number] Univers 08:00:00 08:00:00 SUSY pruett [facility] 2021-08-27 2021-08-27 Orders Doctor SHIPLEY 1.2.840.114 [id number] Univers 00:00:00 00:00:00 Only Unassigned, SATIHSH 350.1.13.10 ity of [employer] [facility]OSPITAL 4.2.7.2.686 Madhu as [phone] [address] 2021-08-05 2021-08-05 Referick Pereira, [facility] 1.2.840.114 [id number] Univers 00:00:00 00:00:00 [facility] 350.1.13.10 it y of [place] 4.2.7.2.686 Madhu as KENN?BLEA [phone] [place] dical MELISSA 044 [facility] 2021-08-03 2021-08-03 Brass Burnisher Nathanael, Adc Lab Main [facility] 1.2.8 40.114 [id number] Univers 07:30:00 07:45:00 Visit Susy Hernandez [place] 350.1.13. 10 ity of [facility] 4.2.7.2.[place] [phone] [place] dical NAL 353 [facility] 2021-08-03 2021-08-03 Outpatient R DAVID [facility] [id number] Univers 07:30:00 07:30:00 [facility] 2021-08-03 2021-08-03 Orders Doctor VIOLETTA 1.2.840.114 [id number] Univers 00:00:00 00:00:00 Only Unassigned, SATHISH 350.1.13.10 ity of [employer] [facility] 4.2.7.2.686 Mdahu as [phone] [address] 2021-07-06 2021-07-06 Brass Burnisher Nathanael, Adc Lab Main [facility] 1.2.8 40.114 [id number] Univers 07:33:55 07:48:55 Visit Ja Sparks 350.1.13.10 ity of Susy Hernandez 4.2.7.2.686 [place] PROFESSIO [phone] [place] dical NAL 353 [facility] 2021-07-06 2021-07-06 Outpatient R DAVID [facility] [id number] Univers 07:30:00 07:30:00 VEENAED ity o f [facility] 2021-07-06 2021-07-06 Outpatient R DAVID [facility] [id number] Univers 07:30:00 07:30:00 VEENAED ity o f [facility] 2021-06-25 2021-06-25 Orders Doctor VIOLETTA 1.2.840.114 [id number] Univers 00:00:00 00:00:00 Only Unassigned, SATHISH 350.1.13.10 ity of [employer] [facility] 4.2.7.2.686 Madhu as [phone] [facility] [address] [place] 2021-06-24 2021-06-24 Outpatient R RADIOLOGY [facility] [id number] Univers 14:06:34 23:59:00 ity of [facility] 2021-06-24 2021-06-24 Hospital Radiology [facility] 1.2.840.114 [id number] Univers 14:06:34 23:59:00 Encounter [place] 350.1.13.10 ity of [place]2.7.[place] [phone] [facility] [address] [place] 2021-06-21 2021-06-21 [facility] Radiology [facility] 1.2.840.114 [id number] Univers 07:43:09 23:59:00 Encounter [place] 350.1.13.10 ity of [place].2.7.2.[place] [phone] [facility] [address] [place] 2021-06-21 2021-06-21 Brass Burnisher Nathanael, Ahsan Lab Main [facility] 1.2.8 40.114 [id number] Univers 07:42:04 07:57:04 Visit Susy Hernandez Gonzalez [place] 350.1.13. 10 ity of [place].2.[place] [phone] [place] dical NAL 353 [facility] 2021-06-21 2021-06-21 Outpatient R DAVID, [facility] [id number] Univers 07:30:00 07:30:00 SUSY turner o f [facility] 2021-06-21 2021-06-21 Outpatient R RADIOLOGY [facility] [id number] Univers 00:00:00 00:00:00 ity of [facility] 2021-06-15 2021-06-15 Outpatient R MICHAEL, [facility] [id number] Univers 08:30:00 08:30:00 [facility]15 2021-06-15 [facility] 1.2.840.114 [id number] Univers 07:56:08 08:11:08 Visit [facility] 350.1.13.10 it y of [place] 4.2.7.2.686 Madhu as KENN?BLEA [phone] [address] [facility] 2021-06-15 2021-06-15 Letter [facility] 1.2.840.114 [id number] Univers 00:00:00 00:00:00 (Out) [facility] 350.1.13.10 it y of [place] 4.2.7.2.686 Madhu as KENN?BLEA [phone] [address] [facility] 2021-06-08 2021-06-08 Telephone [facility] 1.2.307.738 [id number] Univers 00:00:00 00:00:00 [facility] 350.1.13.10 it y of [place] 4.2.7.2.686 Madhu as KENN?BLEA [phone] [address] [facility] 2021-06-07 2021-06-07 Emergency [facility] E[facility] [id number] Univers 09:15:00 10:29:00 CYDNEY turner [facility] 2021-06-07 2021-06-07 Emergency [facility] 1.2.840.114 [id number] Univers 09:15:00 10:29:00 Cydney MACEDO 350.1.13.10 ity [facility] 4.2.7.2.686 [place] [facility] [phone] [address] 2021-06-07 2021-06-07 Emergency [facility] [id number] Univers 09:15:00 10:29:00 CYDNEY turner [facility] 2021-05-31 2021-05-31 Refill [facility] 1.2.840.114 [id number] Univers 00:00:00 00:00:00 [facility] 350.1.13.10 it y of [place] 4.2.7.2.686 Madhu as KENN?BLEA [phone] Me dical KNEY [address] [place] MEDICAL OFFICE BUILDING 2021-05-21 2021-05-21 Orders Doctor VIOLETTA 1.2.840.114 [id number] Univers 00:00:00 00:00:00 Only Unassigned, SATHISH 350.1.13.10 ity of [employer] HOSPITAL 4.2.7.2.686 Madhu as [phone] [facility] [address] [place] 2021-05-14 2021-05-14 Orders Doctor VIOLETTA 1.2.840.114 [id number] Univers 00:00:00 00:00:00 Only Unassigned, SATHISH 350.1.13.10 ity of [employer] HOSPITAL 4.2.7.2.686 Madhu as [phone] [facility] [address] [place] 2021-05-04 2021-05-04 Hospital [facility] 1.2.840.114 [id number] Univers 08:11:23 23:59:00 Encounter Susy Macedo 350.1.13.10 ity of [place] 4.2.7.2.686 [facility] [phone] [facility] [address] [place] 2021-05-04 2021-05-04 Brass Burnisher Nathanael, Adc Lab Main [facility] 1.2.8 40.114 [id number] Univers 08:07:14 08:22:14 Visit Ja Sparks 350.1.13.10 ity of DavidSusy [place] 4.2.7.2.686 [facility] [phone] [place] dical nal [address] [facility] 2021-05-04 2021-05-04 Outpatient R [facility] [id number] Univers 00:00:00 00:00:00 SUSY turner o f [facility] 2021-04-20 2021-04-20 Brass Burnisher Nathanael, Adc Lab Main [facility] 1.2.8 40.114 [id number] Univers 07:36:29 07:51:29 Visit Susy Hernandez 350.1.13. 10 ity of [place] 4.2.7.2.686 [facility] [phone] Me dical nal 353 [facility] 2021-04-20 2021-04-20 Outpatient R DAVID [facility] [id number] Univers 07:30:00 07:30:00 SUSY turner o f [facility] 2021-04-19 2021-04-19 Orders Doctor VIOLETTA 1.2.840.114 [id number] Univers 00:00:00 00:00:00 Only Unassigned, SATHISH 350.1.13.10 ity of [employer] [facility] 4.2.7.2.686 Madhu as [phone] [address] 2021-04-08 2021-04-08 Telephone Michael [facility] 1.2.884.725 [id number] Univers 00:00:00 00:00:00 [facility] 350.1.13.10 it y of [place] 4.2.7.2.686 Madhu as Kenn?Blea [phone] [address] Office [facility] 2021-04-07 2021-04-07 Office [facility] 1.2.840.114 [id number] Univers 08:39:51 09:09:51 Visit [facility] 350.1.13.10 it y of [place] 4.2.7.2.686 Madhu as Kenn?Blea [phone] [address] Medical Office [facility] 2021-04-07 2021-04-07 Outpatient R MICHAEL [facility] [id number] Univers 09:00:00 09:00:00 KAYODE turner of [facility] 2021-04-02 2021-04-02 Emergency [facility] 1.2.467.803 [id number] Univers 16:23:00 20:33:00 Tamera S [place] 350.1.13.10 i ty of [place].2.[place] [phone] [facility] [address] [place] 2021-04-02 2021-04-02 Emergency [facility] 1.2.648.996 [id number] Univers 16:23:00 20:33:00 Tamera S [place] 350.1.13.10 i ty of [place]2.7.2.[place] [id number] [address] 2021-03-31 2021-03-31 Telephone [facility] 1.2.525.051 [id number] Univers 00:00:00 00:00:00 Kay[facility] 350.1.13.10 it y of [place] 4.2.7.2.686 Madhu as Kenn?Blea [phone] [address] Office [facility] 2021-03-31 2021-03-31 Telephone [facility] 1.2.299.083 [id number] Univers 00:00:00 00:00:00 [facility] 350.1.13.10 it y of [place] 4.2.7.2.686 Madhu as Kenn?Blea [phone] [address] 2021-03-30 2021-03-30 Telephone [facility] 1.2.121.023 [id number] Univers 00:00:00 00:00:00 [facility] 350.1.13.10 it y of [place] 4.2.7.2.686 Madhu as Kenn?Blea [phone] [address] Office [facility] 2021-03-29 2021-03-29 [facility] 1.2.840.114 [id number] Univers 00:00:00 00:00:00 [facility] 350.1.13.10 it y of [place] 4.2.7.2.686 Madhu as Professio [phone] [address] One 2021-03-29 2021-03-29 [facility] 1.2.840.114 [id number] Univers 00:00:00 00:00:00 [facility] 350.1.13.10 it y of [place] 4.2.7.2.686 Madhu as Professio [id number] [address] One 2021-03-28 2021-03-28 [facility] 1.2.840.114 [id number] Univers 00:00:00 00:00:00 [facility] 350.1.13.10 it y of [place] 4.2.7.2.686 Madhu as Kenn?Blea [phone] [place] hema [address] Medical Office Building 2021-03-25 2021-03-25 Transition Demetris Perez 1.2.840.114 [id number] Univers 00:00:00 00:00:00 of Care Carol Morochoy 350.1.13.10 i ty of [place] 4.2.7.2.[place] [id number] [facility] [address] [place] 2021-03-25 2021-03-25 Transition Demetris Perez 1.2.840.114 [id number] Univers 00:00:00 00:00:00 of Care Carol [place] 350.1.13.10 i ty of [place] 4.2.7.2.686 [place] [phone] [facility] 403 [place] 2021-03-14 2021-03-24 [facility] 1.2.84 0.114 [id number] Univers 12:26:00 11:09:00 Encounter Roni Duffy 350.1.13.10 ity of [place]2.[place].2.[place] [phone] [facility] [address] [place] 2021-03-14 2021-03-24 [facility] 1.2.84 0.114 [id number] Univers 12:26:00 11:09:00 Encounter Roni Duffy 350.1.13.10 ity of [place] 4[place]2.[place].2.[place] [phone] [facility] [address] [place] 2021-03-20 2021-03-20 Surgery [facility] 1.2.840.114 [id number] Univers 07:30:00 08:03:00 Margarita yee 350.1.13.10 ity of [place] 4[place]2.7.2.686 [place] Surgical [phone] [facility] [address] 2021-03-20 2021-03-20 Surgery [facility] 1.2.840.114 [id number] Univers 07:30:00 08:03:00 Margarita yee [place] 350.1.13.10 ity of [place] 4[place]2.7.2.[place] Surgical [phone] [address] 2021-03-17 2021-03-17 Telephone Michael [facility] 1.2.715.186 [id number] Univers 00:00:00 00:00:00 [facility] 350.1.13.10 it y of [place] 4.2.7.2.686 Madhu as Kenn?Blea [phone] [address] Office Building 2021-03-10 2021-03-10 Outpatient R MICHAEL [facility] [id number] Univers 09:45:00 09:45:00 KAYODE ity [facility] 2021-02-26 2021-02-26 Telephone [facility] 1.2.791.806 [id number] Univers 00:00:00 00:00:00 [facility] 350.1.13.10 it y of [place] 4.2.7.2.686 Madhu as Professio [phone] [address] Office [facility] One 2021-02-24 2021-02-24 Outpatient R [facility] [id number] Univers 09:20:00 09:20:00 ity of [facility] 2021-02-24 2021-02-24 Laboratory Lab, Adc Fam Pob I [facility] 1.2. 840.114 [id number] Univers 08:58:04 09:18:04 Only Kayode Pereira [facility] 350.1.13.10 ity of [place] 4.2.7.2.686 Madhu as Professio [phone] [address] Office [facility] One 2021-02-24 2021-02-24 Marc Pereira [facility] 1.2.840.114 [id number] Univers 00:00:00 00:00:00 (Out) [facility] 350.1.13.10 it y of [place] 4.2.7.2.686 Madhu as Professio [phone] [address] Office [facility] One 2021-02-24 2021-02-24 Letter Michael [facility] 1.2.840.114 [id number] Univers 00:00:00 00:00:00 (Out) [facility] 350.1.13.10 it y of [place] 4.2.7.2.686 Madhu as Professio [phone] [address] One 2021-02-22 2021-02-22 Outpatient R MICHAEL [facility] [id number] Univers 15:15:00 15:15:00 KAYODE [facility] 2021-02-22 2021-02-22 Office [facility] 1.2.840.114 [id number] Univers 14:18:49 15:08:09 Visit [facility] 350.1.13.10 it y of [place] 4.2.7.2.686 Madhu as Professio [phone] [address] One 2021-02-12 2021-02-12 Outpatient JOSE ALFREDO COYLE [facility] [id number] Univers 10:40:00 10:40:00 JOSE ALFREDO CARVALHO [facility] 2021-02-07 2021-02-07 Telephone [facility] 1..455.024 [id number] Univers 00:00:00 00:00:00 [facility] 350.1.13.10 it y of [place] 4.2.7.2.686 Madhu [address]io [phone] [facility] nal [address] [place] [address] One 2021-02-06 2021-02-06 Telephone [facility] 1.2.102.479 [id number] Univers 00:00:00 00:00:00 [facility] 350.1.13.10 it y of [place] 4.2.7.2.686 Madhu as Professio [phone] [place] dical nal [address] [place] [address] Office [facility] One 2021-02-05 2021-02-05 Laboratory Lab, Adc Fam Pob I [facility] 1.2. 840.114 [id number] Univers 11:08:01 11:28:01 Only Cole, [facility] 350.1.13.10 ity of [place] 4.2.7.2.686 Madhu as Professio [phone] [address] 2021-02-05 2021-02-05 Outpatient R COLE [facility] [id number] Univers 11:00:00 11:00:00 INGA ity [facility] 2020-12-28 2020-12-28 Referick [facility]oche[facility] 1.2.840.114 [id number] Univers 00:00:00 00:00:00 Jose Alfredo Macedo 350.1.13.10 ity of [place].2.[place] Profess[place] [phone] [address] 2020-12-07 2020-12-07 Urgent Provider, Bogdan Urgent Care [facility] 1.2.840.114 [id number] Univers 13:04:34 13:24:34 Care Diane Rayo [facility] 350.1.13.10 ity of [place] 4.2.7.2.686 Madhu as Professio [phone] [address] One 2020-12-07 2020-12-07 Outpatient R [facility] [id number] Univers 13:20:00 13:20:00 ity [facility] 2020-12-07 2020-12-07 Marc Hendrickson [facility] 1.2.840.114 [id number] Univers 00:00:00 00:00:00 (Out) [facility] 350.1.13.10 it y of [place] 4.2.7.2.686 Madhu as Professio [phone] [address] One 2020-10-26 2020-10-26 Jan [facility] 1.2.840.114 [id number] Univers 00:00:00 00:00:00 Jose Alfredo Macedo 350.1.13.10 ity of [place] 4.2.7.2.686 [place] Profess[place] [phone] [place] dicde nal [address] [place] [address] 2020-10-24 2020-10-24 Brass Burnisher Nathanael, Ahsan Lab Main [facility] 1.2.8 40.114 [id number] Univers 08:18:22 08:33:22 Visit Kayode Pereira 350.1.13.10 ity of [place] 4.2.7.2.686 [place] Profess[place] [phone] [place] dical nal 353 [facility] 2020-10-24 2020-10-24 [facility] [id number] Univers 08:30:00 08:30:00 KAYODE ity [facility] 2020-10-23 2020-10-23 Urgent Provider, [facility] Care [facility] 1.2.840.114 [id number] Univers 07:58:19 08:18:19 Care Samantha Hendrickson 350.1.13.10 ity of [place] 4.2.7.2.686 Madhu as Professio [phone] [facility] One 2020-10-23 2020-10-23 Outpatient R [facility] [id number] Univers 08:00:00 08:00:00 ity of [facility] 2020-10-23 2020-10-23 Telephone [facility] 1.2.552.023 [id number] Univers 00:00:00 00:00:00 [facility] 350.1.13.10 it y of [place] 4.2.7.2.686 Madhu as Professio [phone] [facility] One 2020-10-21 2020-10-21 [facility] 1.2.552.052 [id number] Univers 09:23:00 12:24:00 Encounter Chaparro Macedo 350.1.13.10 ity of [place] [phone] [facility] [address] [place] 2020-10-21 2020-10-21 Surgery [facility] 1.2.840.114 [id number] Univers 11:29:00 12:10:00 Chaparro Macedo 350.1.13.10 ity of [place] 4[place]2.[place].2.[place] [phone] [facility] [address] 2020-10-21 2020-10-21 Orders Doctor SHIPLEY 1.2.840.114 [id number] Univers 00:00:00 00:00:00 Only Unassigned, SATHIHS 350.1.13.10 ity of [employer] [facility] 4.2.7.2.686 Madhu as [phone] [facility] [address] 2020-10-20 2020-10-20 Laboratory Only, Adc Test [facility] 1.2.840. 114 [id number] Univers 08:55:32 09:10:32 Only Chaparro Tran 350.1.13.1 0 ity of [place] 4.2.7.2.686 [place] [phone] [facility] [address] 2020-10-20 2020-10-20 [facility] [id number] Univers 08:45:00 08:45:00 CHAPARRO lorenzo [facility] 2020-10-16 2020-10-16 Brass Burnisher Nathanael, Adc Lab Main [facility] 1.2.8 40.114 [id number] Univers 13:04:04 13:19:04 Visit Kayode Pereira 350.1.13.10 [id number] [phone] [address] 2020-10-16 2020-10-16 [facility] [id number] Univers 13:15:00 13:15:00 KAYODE lorenzo [facility] 2020-10-16 2020-10-16 Outpatient Leida PEREIRA [facility] [id number] Univers 13:15:00 13:15:00 KAYODE turner [facility] 2020-10-16 2020-10-16 Brass Burnisher Nathanael, Adc Lab Main [facility] 1.2.8 40.114 [id number] Univers 10:28:31 10:43:31 Visit [place] Tran 350.1.13.1 0 [id number] [phone] [address] 2020-10-16 2020-10-16 Outpatient R MASSIMO [facility] [id number] Univers 10:15:00 10:15:00 CHAPARRO lorenzo [facility] 2020-10-16 2020-10-16 [facility] [id number] Univers 00:00:00 00:00:00 [facility] [id number] it y of [place] 4.2.7.2.686 Madhu as Professio [phone] [facility] [address] [facility] 2020-09-30 2020-09-30 Orders Doctor VIOLETTA 1.2.840.114 [id number] Univers 00:00:00 00:00:00 Only Unassigned, SATHISH 350.1.13.10 ity of [facility] [id number] Madhu as [phone] [facility] [address] 2020-08-24 2020-08-24 Refill Deven, [facility] 1.2.840.114 [id number] Univers 00:00:00 00:00:00 Jose Alfredo Macedo [id number] [id number] [phone] [facility] 092 [facility] 2020-07-08 2020-07-08 Refill Deven, [facility] 1.2.840.114 [id number] Univers 00:00:00 00:00:00 Jose Alfredo Macedo 350.1.13.10 it[place] [phone] [place] [id number] [facility] 2020-06-09 2020-06-09 Orders Doctor SHIPLEY 1.2.840.114 [id number] Univers 00:00:00 00:00:00 Only Unassigned, SATHISH 350.1.13.10 ity of [place] [facility] 4.2.7.2.686 Madhu as [phone] [facility] 009 [place] 2020-05-27 2020-05-27 [facility] 1.2.840.114 [id number] Univers 00:00:00 00:00:00 Jose Alfredo Macedo 350.1.13.10 [place] [phone] [facility] 092 [facility] 2020-04-24 2020-04-24 [facility] 1.2.840.114 [id number] Univers 00:00:00 00:00:00 Jose Alfredo Macedo 350.1.13.10 [place] [phone] [address] 2020-03-16 2020-03-16 [facility] 1.2.840.114 [id number] Univers 00:00:00 00:00:00 Jose Alfredo Rikki Macedo 350.1.13.10 [place] [phone] [address] 2020-02-21 2020-02-21 Telephone [facility] 1.2.840.114 [id number] Univers 00:00:00 00:00:00 Jose Alfredo Macedo 350.1.13.10 [place] [phone] [address] 2020-02-20 2020-02-20 [facility] 1.2.840.114 [id number] Univers 00:00:00 00:00:00 Jose Alfredo Macedo 350.1.13.10 [place] [phone] [address] 2020-01-28 2020-01-28 [facility] 1.2.840.114 [id number] Univers 00:00:00 00:00:00 Jose Alfredo Macedo 350.1.13.10 [place] [phone] [address] 2019-11-29 2019-11-29 Migue R JOSE ALFREDO CARVALHO [facility] [id number] Univers 14:00:00 14:00:00 JOSE ALFREDO CARVALHO ity of [facility] 2019-11-29 2019-11-29 Telemedici Deven [facility] 1.2.840.114 [id number] Univers 12:03:54 12:23:54 ne Visit Jose Alfredo Brandt Bar[place] 350.1.13.10 it[place] of [place] [phone] [place] [place] 092 [facility] 2019-11-26 2019-11-26 Telephone [facility] 1.2.840.114 [id number] Univers 00:00:00 00:00:00 Jose Alfredo Brandt [place] 350.1.13.10 [place] of [place] [phone] [place] 092 [facility] 2019-11-24 2019-11-24 [facility] 1.2.840.114 [id number] Univers 00:00:00 00:00:00 [facility] 350.1.13.10 ity of Surgical 4.2.7.2.686 Madhu as Specialti [phone] [place] 198 [facility] 2019-09-13 2019-09-13 Orders Doctor VIOLETTA 1.2.840.114 [id number] Univers 00:00:00 00:00:00 Only Unassigned, SATHISH 350.1.13.10 ity of [place] [facility] 4.2.7.2.686 Madhu as [phone] [address] 2019-09-06 2019-09-06 [facility] 1.2.840.114 [id number] Univers 00:00:00 00:00:00 [facility] 350.1.13.10 ity of Surgical 4.2.7.2.686 Madhu as Specialti [phone] [place] 198 [facility] 2019-08-28 2019-08-28 Refill Michael [facility] 1.2.840.114 [id number] Univers 00:00:00 00:00:00 [facility] 350.1.13.10 it y of [place] 4.2.7.2.686 Madhu as Professio [phone] [place] 044 [facility] 2019-08-28 2019-08-28 Refill Deven [facility] 1.2.840.114 [id number] Univers 00:00:00 00:00:00 [facility] 350.1.13.10 ity of Surgical 4.2.7.2.686 Madhu as Specialti [phone] [place] 198 [facility] 2019-08-26 2019-08-26 Telephone Michael [facility] 1.2.249.635 [id number] Univers 00:00:00 00:00:00 [facility] 350.1.13.10 it y of [place] 4.2.7.2.686 Madhu as Professio [phone] [place] 044 [place] [facility] 2019-08-19 2019-08-19 Office [facility] 1.2.840.114 [id number] Univers 12:35:11 12:50:11 Visit [facility] 350.1.13.10 it y of [place] 4.2.7.2.686 Madhu as Professio [phone] [place] 044 [place] [facility] 2019-08-19 2019-08-19 Orders Doctor VIOELTTA 1.2.840.114 [id number] Univers 00:00:00 00:00:00 Only Unassigned, SATHISH 350.1.13.10 ity of [place] [facility] 4.2.7.2.686 Madhu as [phone] [facility] dyan 009 [place] 2019-08-19 2019-08-19 Letter [facility] 1.2.840.114 [id number] Univers 00:00:00 00:00:00 (Out) [facility] 350.1.13.10 it y of [place] 4.2.7.2.686 Madhu as Professio [phone] [place] 044 [place] [facility] 2019-08-10 2019-08-10 Referick Carvalho [facility] 1.2.840.114 [id number] Univers 00:00:00 00:00:00 [facility] 350.1.13.10 ity of Surgical 4.2.7.2.686 Madhu as Specialti [phone] [place]ical [place] 198 [facility] 2019-02-21 2019-02-21 Referick Carvalho [facility] 1.2.840.114 [id number] Univers 00:00:00 00:00:00 [facility] 350.1.13.10 ity of Surgical 4.2.7.2.686 Madhu as Specialti [phone] [place]ical [place] [address] Hellen 2017-05-18 2017-05-19 Outpt Diag nullFlavo [facility] [id number] Memoria 15:45:00 04:59:00 Services r Outpatient 01 l Imaging Navin Holden 2017-05-18 2017-05-19 Outpt Diag nullFlavo [facility] [id number] Memoria 15:45:00 04:59:00 Services r Outpatient 01 l Imaging Navin Holden 2017-05-18 2017-05-18 [facility] [id number] 10:45:00 23:59:00 Addison Lule 2016-02-19 2016-02-20 Outpt Diag nullFlavo [facility] [id number] Memoria 16:06:00 04:59:00 Services r Outpatient 00 l Imaging Navin Holden 2016-02-19 2016-02-20 Outpt Diag nullFlavo [facility] [id number] Memoria 16:06:00 04:59:00 Services r Outpatient 00 l Imaging Navin Holden 2016-02-19 2016-02-19 Outpatient Dorian, [facility] [id number] 11:06:00 23:59:00 Abram Spencer 00 Results Test Description Test Time Test Comments Results Result Comments Source URINALYSIS 2022-06-21 14:37:41 Test Item Value Reference Range Interpretation Comme nts APPEARANCE (test code = Clear Clear 9635677593) COLOR (test code = 4394957064) Yellow Yellow PH (test code = 2589569693) 4.8-8.0 SP GRAVITY (test code = 1.003-1.030 4062319707) GLU U QUAL (test code = Normal Normal 5351834635) BLOOD (test code = 3337115696) Negative Negative KETONES (test code = 9653513012) Negative Negative PROTEIN (test code = 2887-8) Negative Negative UROBILIN (test code = Normal Normal 7268924701) BILIRUBIN (test code = Negative Negative 6020253857) NITRITE (test code = 1717768767) Negative Negative LEUK HAYLEE (test code = Negative Negative 1853742819) RBC/HPF (test code = 9511904880) See_Comment [Automated message] The system which ge nerated this result transmit chad reference range: 0 - 3 HP F. The reference range was not used to interpret th is result as normal/abnormal . WBC/HPF (test code = 6290460084) See_Comment [Automated message] The system which ge nerated this result transmit chad reference range: 0 - 5 HP F. The reference range was not used to interpret th is result as normal/abnormal . BACTERIA (test code = Few Negative A 9224073967) MUCOUS (test code = 7251782540) Slight Negative LPF A HYAL CAST (test code = See_Comment H [Aut omated message] The 6997561863) system which ge nerated this result transmit chad reference range: <=2 LPF. The reference range was not u sed to interpret this result as normal/abnormal . Lab Interpretation (test code = Abnormal 62029-8) [facility] WITH [id number] 14:35:01 Test Item Value Reference Range Interpretation Comments WBC (test code = See_Comment [Automated 6690-2) message] The sy stem which generated this result transmitted reference range : 4.20 - 10.70 10*3/?L. The reference range was not used to interpret this result as normal/abnormal . RBC (test code = See_Comment [Automated 789-8) message] The sy stem which generated this [...] RDW-SD (test code = 45.3 fL 38.5-51.6 58175-8) RDW-CV (test code = 12.9 % 12.1-15.4 788-0) PLT (test code = See_Comment H [Automated 777-3) message] The sy stem which generated this result transmitted reference range : 150 - 328 10*3/ ?L. The reference r masood was not used to interpret this result as normal/abnormal . MPV (test code = 10.0 fL 9.8-13 51958-4) NRBC/100 WBC (test See_Comment [Automat ed code = 1799272739) message] The system which generated this result transmitted reference range : 0.0 - 10.0 /100 WBCs. The refer ence range was not u sed to interpret th is result as normal/abnormal . NRBC x10^3 (test code See_Comment [Auto mated = 1096196155) message] The s ystem which generated this result transmitted reference range : 10*3/?L. The reference range was not used to interpret this result as normal/abnormal . GRAN MAT (NEUT) % 69.1 % (test code = 770-8) IMM GRAN % (test code 0.60 % = 8606406359) LYMPH % (test code = 15.1 % 736-9) MONO % (test code = 14.1 % 5905-5) EOS % (test code = 0.7 % 713-8) BASO % (test code = 0.4 % 706-2) GRAN MAT x10^3(ANC) 6.25 10*3/uL 1.99-6.95 (test code = 4942095908) IMM GRAN x10^3 (test 0.05 10*3/uL 0-0.06 code = 3580639813) LYMPH x10^3 (test code 1.36 10*3/uL 1.09-3.23 = 731-0) MONO x10^3 (test code 1.27 10*3/uL 0.36-1.02 H = 742-7) EOS x10^3 (test code = 0.06 10*3/uL 0.06-0.53 711-2) BASO x10^3 (test code 0.04 10*3/uL 0.01-0.09 = 704-7) Lab Interpretation Abnormal (test code = 44136-9) [facility] Notes Date/Time Note Provider Source 2017-05-18 13:35:00-00:00 EXAM: MR ARTHROGRAM LEFT SHOULDER ANN MARIED Navin DATE: 05/18/2017 11:47 AM CDT INDICATION: - M25.512 Pain in left shoulder COMPARISON: None TECHNIQUE: Fluoroscopy-guide d arthrogram was performed prior to MRI. Please see the corresponding report for further details. Axial, oblique coronal, and oblique sagittal MR images of the shoulder. IV contrast: None. FINDINGS: ROTATOR CUFF AND ASSOCIATED STRUCTURES Rotator cuff: Full-thickness tear of the entire supraspinatus extending into the infraspinatus with delaminating partial-thickness articular sided tear of the anterior half of the infraspinatus. Teres minor and subscapularis are intact. Bursa: Contrast in the subdeltoid bursa. Musculature: Mild fatty stre aking of both the supraspinatus and infraspinatus (Goutallier grade 1 atrophy). Acromioclavicular joint: The re are moderate degenerative changes of the acromioclavicular joint with large inferior osteophyte of the distal clavicle.. A type 1 acromion configuration is noted. There is no anterior or lateral acromial downsloping. OSSEOUS STRUCTURES There are no fractures or regions of abnormal flavio ne marrow signal intensity. LONG BICIPITAL TENDON The biceps tendon is normall y situated within the bicipital groove. No complete or partial biceps tendon tear is present. GLENOHUMERAL JOINT Joint fluid: There is contrast in the glenohumer al joint. Cartilage and Bone: No focal hyaline cartilage defects are noted. No Hill- Sachs, reverse Hill-Sachs, or bony Bankart lesions are seen. Labrum: Degeneration of the biceps-labral complex. No paralabral cysts are seen. Other support structures: No capsular or ligamen tous abnormality is seen. OTHER FINDINGS: None. IMPRESSION: 1. Full-thickness tear of th e entire supraspinatus extending into the infraspinatus with delaminating partial-thickness articular sided tear of the anterior half of the infraspinatus. 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 2. Degeneration of the biceps-labral complex. 2017-05-18 12:50:00-00:00 EXAM: FLUOROSCOPY-GUIDED LEFT SHOULDER INJECTION ANN MARIED Glen DATE: 05/18/2017 11:07 AM CDT INDICATION: - M25.512 Pain in left shoulder COMPARISON: None. PRE-PROCEDURE: Consent: An informed consent was obtaine d from patient prior to the procedure. Appropriate time out procedures were performed. PROCEDURE: The skin was prepped and anay ped in the usual fashion under aseptic precautions. 1% lidocaine was utilized for local anesthesia. Under fluoroscopic guidance a 22 gauge long spinal needle was used to access the shoulder joint. 2 mL of Omnipaque 240 was in jected under fluoroscopic guidance to confirm intra-articular needle placement. 6 mL of a mixture of 0.1 mL Dotarem with 10 mL of saline, and 4 mL of 0.2% ropivacaine were drawn into a 10 mL syringe. 10 mL of this mixture was injected into the shoulder joint. No immediate complications. Preprocedure pain score: 4/10 Postprocedure pain score: 1/10 FLUORO TIME: [address] Piero Ham, attending, was present fo r the procedure. IMPRESSION: Technically successful fluor oscopy-guided left shoulder injection. 2016-02-19 11:21:33-00:00 EXAM: Ext Upper non vascular US [facility] DATE: 02/19/2016 11:20 AM CDT INDICATION: M75.102 Unspecif ied rotator cuff tear or rupture of left shoulder, not specified as traumatic Pain. COMPARISON: None. TECHNIQUE: Ultrasound examination of the left oulder was performed. DISCUSSION: Biceps tendon: There is some diffuse thickening of the biceps tendon identified. In the distal bicipital groove there is a small area of focal fluid collection around the biceps tendon sheath. No aggressive vascularity is seen in this region. Rotator cuff: Small partial thickness articular surface tear is seen involving the anteriormost fibers of the supraspinatus with approximately 0.8 cm of retraction. Some diffuse tendinosis of the supraspinatus is also present. Infraspinatus demonstrates normal appearance. Fluid is seen in the glenohu meral joint space with some minimal septation. This likely represents prior hemorrhage and secondary synovitis. IMPRESSION: 1. Partial-thickness articul ar surface supraspinatus tear with retraction involving anterior 50% of the supraspinatus tendon at its footplate. 2. Tendinosis of the remainder of the supraspina tus and infraspinatus. 3. Tendinosis of the biceps tendon with fluid in the distal bicipital groove. 4. Glenohumeral joint effusi on with some septation (synovitis) . Questionable adhesive capsulitis.
[2023-01-31] MEDS ORDERED: ETOMIDATE 20 MG/10 ML VIAL IV ONE (03:27)
[2023-01-31] MEDS ORDERED: NA CHLORIDE 0.9% 500 ML ONE (03:27)
[2023-01-31] MEDS ORDERED: propofoL 1,000 MG/100 ML VIAL IV ONE (03:59)
[2023-01-31] MEDS ORDERED: ONDANSETRON 4 MG/2 ML VIAL ONE ×2 (04:35→07:42)
[2023-01-31] MEDS ORDERED: TDAP (DIPHTH,PERTUSS(ACELL),TET VAC) 0.5 ML VIAL IMVAC ONE (04:36)
[2023-01-31] MEDS ORDERED: NA CHLORIDE 0.9% 0 ML ONE (04:36)
[2023-01-31 05:22] LABS: Absolute Lymphocytes (CBC) 0.9 K/uL (0.7-4.9); Hematocrit 40.6 % (39.6-49.0); Lymphocytes % 6.7 % (15.3-44.8); MCV 97.2 fL (80-100); MPV 8.5 fL (7.6-11.3); RBC Red Blood Cell Count 4.18 M/uL (4.33-5.43)
[2023-01-31] MEDS ORDERED: LIDOCAINE 1% 20 ML MDV ONE (07:07)
--- NOTE | 2023-01-31 07:24 | ER ---
Nurse's Notes [facility] Name: Dany Thornton Age: 62 yrs Sex: Male : 1960 Arrival Date: 01/31/2023 Time: 02:44 Bed 14 Private MD: Diagnosis: Dislocation of other parts of right shoulder girdle;Right shoulder dislocation, right shoulder pain, right anterior shoulder dislocation. Acute head injury, laceration to the chin, forehead contusion, forehead abrasion, accidental fall at home Presentation: 01/31 03:16 Chief complaint: EMS states: Pt has had bilateral knee replacements and tripped and vc1 fell in kitchen. Has positive LOC, a laceration on left eyebrow and chin. RIght shoulder looks out of place and he is complaining of right arm pain. 03:16 Coronavirus screen: Client denies travel out of the [place] in the last 14 days. At this vc1 time, the client does not indicate any symptoms associated with coronavirus-19. Ebola Screen: Patient negative for fever greater than or equal to 101.5 degrees Fahrenheit, and additional compatible Ebola Virus Disease symptoms Patient denies exposure to infectious person. Patient denies travel to an Ebola-affected area in the 21 days before illness onset. No symptoms or risks identified at this time. Initial Sepsis Screen: Does the patient meet any 2 criteria? No. Patient's initial sepsis screen is negative. Does the patient have a suspected source of infection? No. Patient's initial sepsis screen is negative. Risk Assessment: Do you want to hurt yourself or someone else? Patient reports no desire to harm self or others. Onset of symptoms was January 31, 2023. 03:16 Method Of Arrival: EMS: [facility] vc1 03:16 Acuity: IRINEO 2 vc1 Triage Assessment: 03:16 General: Appears distressed, uncomfortable, Behavior is crying, fussy, Smells of vc1 alcohol. Pain: Complains of pain in right arm Pain does not radiate. Pain currently is 10 out of 10 on a pain scale. Quality of pain is described as sharp, Pain began suddenly, Is continuous, Alleviated by rest, Aggravated by movement Noted to be crying, grimacing, guarding, moaning, resistant to movement. EENT: No deficits noted. No signs and/or symptoms were reported regarding the EENT system. Neuro: Level of Consciousness is awake, alert, obeys commands, Oriented to person, place, time, situation, Appropriate for age. Cardiovascular: No deficits noted. Respiratory: Airway is patent Respiratory effort is even, unlabored, Respiratory pattern is regular, symmetrical. GI: No deficits noted. No signs and/or symptoms were reported involving the gastrointestinal system. : No deficits noted. No signs and/or symptoms were reported regarding the genitourinary system. Derm: Wound noted chin and left side of forehead. Musculoskeletal: right shoulder. Injury Description: Laceration sustained to chin and left side of forehead. Historical: - Allergies: 03:16 Benadryl; vc1 - PMHx: 03:16 Hypertension; vc1 - PSHx: 03:16 Knee replacement x2-left; Shoulder surgery-left; vc1 - Immunization history:: unsure Last tetanus immunization: unknown. - Social history:: Smoking status: unknown. - Family history:: not pertinent. Screenin:16 [facility] ED Fall Risk Assessment (Adult) History of falling in the last 3 months, vc1 including since admission No falls in past 3 months (0 pts) Confusion or Disorientation No (0 pts) Intoxicated or Sedated No (0 pts) Impaired Gait No (0 pts) Mobility Assist Device Used No (0 pt) Altered Elimination No (0 pt) Score/Fall Risk Level 0 - 2 = Low Risk Oriented to surroundings, Maintained a safe environment, Educated pt \T\ family on fall prevention, incl call for assistance when getting out of bed. Abuse screen: Denies threats or abuse. Nutritional screening: No deficits noted. Tuberculosis screening: No symptoms or risk factors identified. Assessment: 04:00 Reassessment: See triage assessment. vc1 05:00 Reassessment: No changes from previously documented assessment. Patient and/or family vc1 updated on plan of care and expected duration. Pain level reassessed. 05:41 Reassessment: IV infiltrated. vc1 06:50 Reassessment: Patient and/or family updated on plan of care and expected duration. Pain vc1 level reassessed. Patient is alert, oriented x 3, equal unlabored respirations, skin warm/dry/pink. Patient states symptoms have improved. Vital Signs: 03:16 BP 160 / 82; Pulse 70; Resp 22; Temp 97.7; Pulse Ox 100% ; Weight 72.57 kg; Pain 10/10; vc1 04:00 BP 138 / 77; Pulse 69; Resp 17; Pulse Ox 100% ; vc1 05:15 BP 147 / 72; Pulse 77; Resp 20; Pulse Ox 98% ; vc1 08:13 BP 142 / 74; Pulse 68; Resp 20; Pulse Ox 99% ; ko1 03:16 Pain Scale: Adult vc1 ED Course: 03:15 Patient arrived in ED. kl 03:16 Arm band placed on left wrist. vc1 03:18 Han Roberto MD is Attending Physician. sp4 03:30 Patient has correct armband on for positive identification. Bed in low position. Call vc1 light in reach. Provided Education on: Conscious Sedation. Client placed on continuous cardiac and pulse oximetry monitoring. NIBP monitoring applied. 04:26 Shoulder Right (2 View) XRAY In Process Unspecified. EDMS 04:26 Chest Single View XRAY In Process Unspecified. EDMS 04:26 Pelvis XRAY In Process Unspecified. EDMS 04:28 Yisel Kunz, RN is Primary Nurse. vc1 04:52 Inserted saline lock: 20 gauge in left upper arm, using aseptic technique. Blood vc1 collected. 05:06 Triage completed. vc1 06:37 CT Head C Spine In Process Unspecified. EDMS 07:21 Emory Koroma MD is Referral Physician. sp4 07:43 Type And Screen Sent. ko1 08:13 Assist provider with laceration repair on left side of forehead and chin using sutures. ko1 Set up tray. Performed by Han Roberto MD Patient tolerated well. IV discontinued, intact, bleeding controlled, No redness/swelling at site. Pressure dressing applied. Administered Medications: 03:30 Drug: NS 0.9% IV 1000 ml Route: IV; Rate: 125 ml/hr; Site: left antecubital; vc1 03:38 Drug: Etomidate IVP 20 mg Route: IVP; Site: left forearm; vc1 05:01 Not Given (only have Boostrixx): Tetanus-Diphtheria Toxoid IM Adult 0.5 ml IM once; vc1 Provide Vaccine Information Statement (VIS). 05:01 Drug: Boostrix Tdap IM 0.5 ml {Note: [employer] 72D7L exp 07/01/23.} Route: IM; vc1 Site: left deltoid; 05:02 Drug: Ondansetron IVP 4 mg Route: IVP; Site: left upper arm; vc1 07:17 Drug: Propofol IVP 100 mg {Note: Administered from 1000mg bottle by Dr. Roberto.} vc1 Route: IVP; Site: left forearm; 07:34 Drug: Ondansetron IVP 4 mg Route: IVP; Site: left antecubital; ko1 07:36 Drug: [place] PO 10 mg-325 mg 1 tabs Route: PO; ko1 07:36 Drug: Ibuprofen PO 800 mg Route: PO; ko1 Medication: 05:18 VIS not applicable for this client. vc1 Outcome: 07:23 Discharge ordered by . sp4 08:13 Discharged to home via wheelchair, with friend. ko1 08:13 Condition: stable 08:13 Discharge instructions given to patient, Instructed on discharge instructions, follow up and referral plans. no drinking with medication, medication usage, Demonstrated understanding of instructions, follow-up care, medications, wound care, Prescriptions given X 3. 08:17 Patient left the ED. ko1 Signatures: Dispatcher [employer] EDMS Diane Rodriguez RN RN kl Calcote, Vanessa, RN RN vc1 Oliver, Kathy, RN RN ko1 Potepalov, Sergey, MD MD sp4
--- NOTE | 2023-01-31 07:24 | EDPHYS ---
Physician Documentation [facility] Name: Dany Thornton Age: 62 yrs Sex: Male : 1960 Arrival Date: 01/31/2023 Time: 02:44 Bed 14 Private MD: ED Physician Han Roberto HPI: 01/31 03:19 This 62 yrs old Male presents to ER via Unassigned with complaints of R sp4 shoulder pain, fall . 07:12 62-year-old male presents after acute fall at home in the kitchen on a pancake syrup. sp4 Patient presents with facial injury, laceration under his chin, right shoulder dislocation, and also forehead contusion. . Historical: - Allergies: 03:16 Benadryl; vc1 - PMHx: 03:16 Hypertension; vc1 - PSHx: 03:16 Knee replacement x2-left; Shoulder surgery-left; vc1 - Immunization history:: unsure Last tetanus immunization: unknown. - Social history:: Smoking status: unknown. - Family history:: not pertinent. ROS: 07:12 Constitutional: Negative for fever, chills, and weight loss, positive for injury to the sp4 chin, forehead contusion, head injury, also positive for right shoulder pain MS/Extremity: Positive for right shoulder pain, injury, and deformity Skin: Negative for injury, rash, and discoloration, positive for laceration underneath the chin Exam: 07:12 Constitutional: This is a well developed, well nourished patient who is awake, alert, sp4 positive distress secondary to pain Head/Face: Normocephalic, left forehead contusion, there is laceration underneath the chin, which is about 2 cm long Eyes: Pupils equal round and reactive to light, extra-ocular motions intact. Lids and lashes normal. Conjunctiva and sclera are not injected. Cornea within normal limits. Periorbital areas with no swelling, redness, or edema. ENT: Nares patent. No nasal discharge, no septal abnormalities noted. Tympanic membranes are normal and external auditory canals are clear. Oropharynx with no redness, swelling, or masses, exudates, or evidence of obstruction, uvula midline. Mucous membranes moist. Neck: Trachea midline, no thyromegaly or masses palpated, and no cervical lymphadenopathy. Supple, full range of motion without nuchal rigidity, or vertebral point tenderness. Chest/axilla: Normal chest wall appearance and motion. Nontender with no deformity. No lesions are appreciated. Cardiovascular: Regular rate and rhythm with a normal S1 and S2. No gallops, murmurs, or rubs. Normal PMI, no JVD. No pulse deficits. Respiratory: Lungs have equal breath sounds bilaterally, clear to auscultation and percussion. No rales, rhonchi or wheezes noted. No increased work of breathing, no retractions or nasal flaring. Abdomen/GI: Soft, non-tender, with normal bowel sounds. No distension or tympany. No guarding or rebound. No evidence of tenderness throughout. Back: No spinal tenderness. No costovertebral tenderness. Male : Normal genitalia with no discharge or lesions. Skin: Warm, dry with normal turgor. Normal color with no rashes, no lesions, and no evidence of cellulitis. MS/ Extremity: Pulses equal, no cyanosis. Neurovascular intact. Right shoulder deformity indicative of anterior dislocation. Neuro: Awake and alert, GCS 15, oriented to person, place, time, and situation. Cranial nerves II-XII grossly intact. Motor strength 5/5 in all extremities. Sensory grossly intact. Psych: Awake, alert, with orientation to person, place and time. Behavior, mood, and affect are within normal limits 07:12 ECG was reviewed by the Attending Physician. sp4 Vital Signs: 03:16 BP 160 / 82; Pulse 70; Resp 22; Temp 97.7; Pulse Ox 100% ; Weight 72.57 kg; Pain 10/10; vc1 04:00 BP 138 / 77; Pulse 69; Resp 17; Pulse Ox 100% ; vc1 05:15 BP 147 / 72; Pulse 77; Resp 20; Pulse Ox 98% ; vc1 08:13 BP 142 / 74; Pulse 68; Resp 20; Pulse Ox 99% ; ko1 03:16 Pain Scale: Adult vc1 Procedures: 07:25 Moderate sedation: Pre-procedure assessment: the patient has been NPO 4 hour(s) prior sp4 to arrival, ASA physical classification: II - mild/mod systemic disease that does not interfere with daily routines, Airway assessment: able to hyperextend neck, able to maintain airway, can open mouth without difficulty, Mallampati classification of tongue size: II - faucial pillars and soft palate can be visualized, but uvula is masked by the base of the tongue, Monitoring during procedure: playground monitor, continuous pulse oximetry, nurse at bedside at all times, Medications employed: Etomidate, 10 mg(s), Propofol used 100 mg Bolus , Post-procedure assessment: the patient is moderately sedated, Respiratory status: even and unlabored, a reversal agent was not used, Moderate sedation accomplished with etomidate and propofol for right shoulder reduction., Patient regained his normal mental status. 07:27 Reduction: of the right shoulder, using traction, manipulation, External rotation with sp4 traction, Immobilized with shoulder immobilizer. Patient tolerated well. Post reduction film - reveals normal alignment. On initial exam there was some vascular compromise to the right arm secondary to anterior shoulder dislocation. Dislocation was reduced stat with moderate sedation. Laceration: 07:12 Wound Repair of 2cm ( 0.8in ) subcutaneous laceration to chin. Linear shaped.. Distal sp4 neuro/vascular/tendon intact. Anesthesia: Wound infiltrated with 10 mls of 1% lidocaine. Wound prep: Moderate cleansing by me, Copious irrigation. Skin closed with 5 5-0 Prolene using interrupted sutures and sterile technique. Dressed with left to air . Patient tolerated well. MDM: 03:19 Patient medically screened. sp4 06:52 ED course: EXAM: XR Pelvis, 1 or 2 Views CLINICAL HISTORY: The patient is 62 years old sp4 and is Male; fall TECHNIQUE: Single frontal view of the pelvis. COMPARISON: No relevant prior studies available. FINDINGS: Bones/joints: No acute fracture visualized. No dislocation. Soft tissues: Unremarkable. IMPRESSION: No acute findings in the pelvis. . ED course: EXAM: XR Chest, 1 View CLINICAL HISTORY: The patient is 62 years old and is Male; fall TECHNIQUE: Frontal view of the chest. COMPARISON: No relevant prior studies available. FINDINGS: Lungs: There may be a small patchy retrocardiac opacity in the left lung base. Pleural space: Unremarkable. No pneumothorax. Heart: Unremarkable. Mediastinum: Unremarkable. Bones/joints: Unremarkable. IMPRESSION: There may be a small patchy retrocardiac opacity in the left lung base. ED course: DERRICK HISTORY: The patient is 62 years old and is Male; shoulder reduction TECHNIQUE: Two views of the right shoulder. COMPARISON: No relevant prior studies available. FINDINGS: Bones/joints: No acute fracture or dislocation. Soft tissues: Unremarkable. IMPRESSION: No acute fracture or dislocation. 07:12 Differential diagnosis: closed head injury, contusion, laceration, multiple trauma, sp4 sprain, strain. Data reviewed: vital signs, nurses notes, old medical records, lab test result(s), radiologic studies, CT scan, plain films. 07:12 ED course: Soft tissues: Left frontal scalp swelling. IMPRESSION: No acute intracranial sp4 abnormality. No acute findings in the cervical spine. . 07:27 Consideration of Admission/Observation Escalation of care including sp4 admission/observation considered. 01/31 03:18 Order name: Basic Metabolic Panel [facility] 01/31 03:18 Order name: CBC with Diff; Complete Time: 06:52 [facility] 01/31 03:18 Order name: Type And Screen; Complete Time: 06:52 [facility] 01/31 03:19 Order name: Type And Screen [facility] 01/31 03:57 Order name: Alcohol Level [facility] 01/31 03:58 Order name: CT Head C Spine [facility] 01/31 03:58 Order name: Shoulder Right (2 View) XRAY [facility] 01/31 03:59 Order name: Chest Single View XRAY 4 01/31 03:59 Order name: Pelvis XRAY [facility] 01/31 07:54 Order name: EKG Electrocardiogram [facility] 01/31 03:18 Order name: Labs collected and sent; Complete Time: 05:18 4 01/31 03:25 Order name: Conscious Sedation; Complete Time: 04:33 vc1 01/31 04:06 Order name: Labs - recollect needed: All tubes. please replace TS band.; Complete Time: bc6 05:00 01/31 05:28 Order name: Labs - recollect needed: green top; Complete Time: 07:43 bc6 EC:12 Rate is 70 beats/min. Rhythm is regular, Normal Sinus Rhythm. QRS [place] is Normal. [place] sp4 interval is normal. QRS interval is normal. QT interval is normal. T waves are Normal. No ST changes noted. Clinical impression: Normal ECG. Interpreted by me. Administered Medications: 03:30 Drug: NS 0.9% IV 1000 ml Route: IV; Rate: 125 ml/hr; Site: left antecubital; vc1 03:38 Drug: Etomidate IVP 20 mg Route: IVP; Site: left forearm; vc1 05:01 Not Given (only have Boostrixx): Tetanus-Diphtheria Toxoid IM Adult 0.5 ml IM once; vc1 Provide Vaccine Information Statement (VIS). 05:01 Drug: Boostrix Tdap IM 0.5 ml {Note: [employer] 72D7L exp 07/01/23.} Route: IM; vc1 Site: left deltoid; 05:02 Drug: Ondansetron IVP 4 mg Route: IVP; Site: left upper arm; vc1 07:17 Drug: Propofol IVP 100 mg {Note: Administered from 1000mg bottle by Dr. Roberto.} vc1 Route: IVP; Site: left forearm; 07:34 Drug: Ondansetron IVP 4 mg Route: IVP; Site: left antecubital; ko1 07:36 Drug: Talmage PO 10 mg-325 mg 1 tabs Route: PO; ko1 07:36 Drug: Ibuprofen PO 800 mg Route: PO; ko1 Disposition Summary: 01/31/23 07:23 Discharge Ordered Location: Home sp4 Problem: new sp4 Symptoms: have improved sp4 Condition: Stable sp4 Diagnosis - Dislocation of other parts of right shoulder girdle sp4 - Right shoulder dislocation, right shoulder pain, right anterior shoulder sp4 dislocation. Acute head injury, laceration to the chin, forehead contusion, forehead abrasion, accidental fall at home Followup: sp4 - With: Emory Koroma MD - When: 2 - 3 days - Reason: Recheck today's complaints Discharge Instructions: - Discharge Summary Sheet sp4 - Shoulder Dislocation, [id number] sp4 Forms: - Patient Portal [email or web address] sp4 Prescriptions: - Ibuprofen 600 mg Oral Tablet - take 1 tablet by ORAL route every 6 hours As needed take with food; 30 tablet; sp4 Refills: 0, Product Selection Permitted - Cyclobenzaprine 10 mg Oral Tablet - take 1 tablet by ORAL route every 8 hours As needed; 30 tablet; Refills: 0, sp4 Product Selection Permitted - Tramadol 50 mg Oral Tablet - take 1 tablet by ORAL route every 8 hours as needed; 20 tablet; Refills: 0, sp4 Product Selection Permitted Signatures: Dispatcher [employer] Yisel Marie RN RN vc1 Benita Ny RN RN ko1 Randi Corado bc6 Han Roberto MD MD sp4 Corrections: (The following items were deleted from the chart) 03:45 03:19 C Spine Single View+[email or web address] ordered. EDMS EDMS
[2023-01-31] MEDS ORDERED: HYDROCODONE/APAP 10/325 TAB ONE (07:41)
[2023-01-31] MEDS ORDERED: IBUPROFEN 400 MG TAB ONE (07:41)
[2023-01-31 08:12] LABS: Potassium 3.6 mEq/L (3.5-5.1)
[2023-01-31 08:31] VITALS: TEMP 97.7
[2023-01-31 09:08] VITALS: BP 142/74; O2SAT 99
--- NOTE | 2023-01-31 13:50 | RAD REPORT ---
EXAM DESCRIPTION: CT Head and Cervical Spine Without Intravenous Contrast CLINICAL HISTORY: The patient is 62 years old and is Male; head injury TECHNIQUE: Axial computed tomography images of the head/brain and cervical spine without intravenous contrast. Sagittal and coronal reformatted images were created and reviewed. This CT exam was pe rformed using one or more of the following dose reduction techniques: automated exposure control, a djustment of the mA and/or kV according to patient size, and/or use of iterative reconstruction techn ique. COMPARISON: No relevant prior studies available. FINDINGS: Brain: Mild nonspecific white matter changes likely related to chronic microvascular isc hemic disease. No hemorrhage. Ventricles: Unremarkable. No ventriculomegaly. Skull: No acute fracture. Sinuses: Unremarkable as visualized. No acute sinusitis. Mastoid air cells: Unremarkable as visualized. No mastoid effusion. Vertebrae: See below. Discs/spinal canal/neural foramina: Disc space narrowing with degenerative endplate changes at C6 -7. Moderate left neural foraminal narrowing at C3-4. Moderate right neural foraminal narrowing at C4-5. Moderate to severe right neural foraminal narrowing at C7. Soft tissues: Left frontal scalp swelling. IMPRESSION: No acute intracranial abnormality. No acute findings in the cervical spine. Electronically signed by: Dany Tran MD 01/31/2023 7:12 AM CDT Due to temporary technical issues with the PACS/Fluency reporting system, reports are being signed by the in house radiologists without review as a courtesy to insure prompt reporting. The interpreting radiologist is fully responsible for the content of the report.
--- NOTE | 2023-01-31 19:26 | RAD REPORT ---
EXAM DESCRIPTION: XR Right Shoulder Complete, 2 or More Views CLINICAL HISTORY: The patient is 62 years old and is Male; shoulder reduction TECHNIQUE: Two views of the right shoulder. COMPARISON: No relevant prior studies available. FINDINGS: Bones/joints: No acute fracture or dislocation. Soft tissues: Unremarkable. IMPRESSION: No acute fracture or dislocation. Electronically signed by: Radha Dickens MD 01/31/2023 5:12 AM CDT Due to temporary technical issues with the PACS/Fluency reporting system, reports are being signed by the in house radiologists without review as a courtesy to insure prompt reporting. The interpreting radiologist is fully responsible for the content of the report.
--- NOTE | 2023-01-31 19:27 | RAD REPORT ---
EXAM DESCRIPTION: XR Chest, 1 View CLINICAL HISTORY: The patient is 62 years old and is Male; fall TECHNIQUE: Frontal view of the chest. COMPARISON: No relevant prior studies available. FINDINGS: Lungs: There may be a small patchy retrocardiac opacity in the left lung base. Pleural space: Unremarkable. No pneumothorax. Heart: Unremarkable. Mediastinum: Unremarkable. Bones/joints: Unremarkable. IMPRESSION: There may be a small patchy retrocardiac opacity in the left lung base. Electronically signed by: Dany Tran MD 01/31/2023 4:57 AM CDT Due to temporary technical issues with the PACS/Fluency reporting system, reports are being signed by the in house radiologists without review as a courtesy to insure prompt reporting. The interpreting radiologist is fully responsible for the content of the report.
--- NOTE | 2023-01-31 19:28 | RAD REPORT ---
EXAM DESCRIPTION: XR Pelvis, 1 or 2 Views CLINICAL HISTORY: The patient is 62 years old and is Male; fall TECHNIQUE: Single frontal view of the pelvis. COMPARISON: No relevant prior studies available. FINDINGS: Bones/joints: No acute fracture visualized. No dislocation. Soft tissues: Unremarkable. IMPRESSION: No acute findings in the pelvis. Electronically signed by: Radha Dickens MD 01/31/2023 5:12 AM CDT Due to temporary technical issues with the PACS/Fluency reporting system, reports are being signed by the in house radiologists without review as a courtesy to insure prompt reporting. The interpreting radiologist is fully responsible for the content of the report.
--- NOTE | 2023-01-31 20:20 | EKG ---
Test Date: 2023-01-31 Test Time: 03:25:04 Hanging Flags Decorator: NORM MEASUREMENT RESULTS: Intervals: Rate: 70 MT: 148 QRSD: 76 QT: 440 QTc: 475 [place]: P: 76 MT: 148 QRS: 24 T: 75 INTERPRETIVE STATEMENTS: Normal sinus rhythm Normal ECG Compared to ECG 12/24/2022 01:45:58 Prolonged QT interval no longer present Electronically Signed On 01-31-23 20:18:34 CDT by Brent Esteban
== END 2023-01-31 08:17 | disposition home or self-care (01) ==
LOC: ER 02:44
PROC: 0HQ1XZZ Repair Face Skin, External Approach (ICD-10-PCS; principal; 2023-01-31)
PROC: 0RSJXZZ Reposition Right Shoulder Joint, External Approach (ICD-10-PCS; 2023-01-31)
DX: S43.304A Dislocation of unspecified parts of right shoulder girdle, initial encounter (principal); S01.81XA Laceration without foreign body of other part of head, initial encounter; I10 Essential (primary) hypertension; Z88.8 Allergy status to other drugs, medicaments and biological substances
CPT/HCPCS: 93005; 85025; 80048; 36415; 86900; 86850; 86901; 70450; 72125; 71045; 72170; 73030; 96372; 99285; 82077; 12011; 23655; J2704; J2001; J2405 ×2; J7040; J7030

== ENCOUNTER 2023-04-06 13:24 | Emergency (ER) | payer BC ==
--- OUTSIDE RECORDS SUMMARY | 2023-04-06 13:35 | XMS REPORT | Continuity of Care Document ---
:1960 Author Organization [facility] t Address [address] [place] [address] Care Team Providers Name Role Phone Kayode Rodriguez MD Primary Care Physician CHAPARRO KEYS Attending Clinician Unavailable Kayode Rodriguez MD Attending Clinician Pob, [facility] Main Attending Clinician Unavailable Susy Hernandez MD Attending Clinician SUSY HERNANDEZ Attending Clinician Unavailable Doctor Unassigned, [employer] Attending Clinician Unavailable OLY SANTAMARIA Attending Clinician Unavailable Oly Jorge Attending Clinician Unknown, Attending Attending Clinician Unavailable Ja Elaine MD Attending Clinician JA ELAINE Attending Clinician Unavailable KRISTEN AVENDAÑO Attending Clinician Unavailable Kristen Avendaño MD Attending Clinician [phone] KAYODE RODRIGUEZ Attending Clinician Unavailable CHRISTINA MO Attending Clinician Unavailable Only, Bogdan Veliz Test Attending Clinician Unavailable Christina Lovelace Attending Clinician Jacqueline Jones RN Attending Clinician Unavailable Provider, Bogdan [facility] Attending Clinician Unavailable Henok Sorto Attending Clinician HENOK WYNNE Attending Clinician Unavailable RADIOLOGY Attending Clinician Unavailable Radiology Attending Clinician Unavailable CYDNEY ALARCON Attending Clinician Unavailable Cydney Alarcon DO Attending Clinician Lliia MCNEILLTamera S Attending Clinician Ana PATRICIA, Carol East Attending Clinician Unavailable Isabel Fitzgerald DO Attending Clinician Roni Duffy DO Attending Clinician Margarita Keane MD Attending Clinician Lab, Adc [facility] Pob I Attending Clinician Unavailable JOSE ALFREDO BURKS Attending Clinician Unavailable JOSE ALFREDO BURKS Attending Clinician Unavailable Inga Galvan MD Attending Clinician INGA GALVAN Attending Clinician Unavailable Jose Alfredo Burks MD Attending Clinician Provider, [facility] Attending Clinician Unavailable Perri STORAGE CONSULTANTDiane Attending Clinician Emeka STORAGE CONSULTANTSamantha Attending Clinician Chaparro Keys MD Attending Clinician Only, [facility] Test Attending Clinician Unavailable Addison Kim Attending Clinician Abram Alarcon Attending Clinician CHAPARRO KEYS Admitting Clinician Unavailable NOAH GUZMAN Admitting Clinician Unavailable CYDNEY ALARCON Admitting Clinician Unavailable Roni Duffy DO Admitting Clinician Chaparro Keys MD Admitting Clinician Payers Payer Name Policy Type Policy Number Effective Date Expiration Date S dennis [employer] FED SELECT [id number] 2005 00:00:00 Problems Condition Condition Condition Status Onset Resolution Last Treating Co mments Source Name Details Category Date Date Treatment Clinician Date Generalize Generalize Disease Active U nivers d anxiety d anxiety 1-13 ity of disorder disorder 00:00: [place] 00 Medical Branch 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 Chronic Chronic Disease Active 2020-07 Univers kidney kidney 2-03 ity of disease, disease, 00:00: [place] stage 2 stage 2 00 Medical (mild) [...] Date Date Clinician HYDROCHL DRUG Active Other-[facility] ers OROTHIAZ INGREDI 9- ity of FRIDA [...] ers DRAMINE INGREDI 02-16 ity of 00:00: [place] 00 Medical Branch Diphgayatri Marroquini Active Other - See Causes U nivers dramine ty to comments 02-16 him to be ity of adverse 00:00: tense and [place] reaction 00 funny Medical s feeling Branch in chest Social History Social Habit Start Date Stop Date Quantity Comments Source History of tobacco Chews Tobacco Uni versity of use [facility] Gender identity Universit y [facility] [place] [facility] Sexual orientation Univer sity of [facility] Alcohol intake 2023-02-13 2023-02-13 0 /d University of 00:00:00 00:00:00 [facility] Exposure to 2022-10-08 2022-10-18 Not sure [facility] SARS-CoV-2 (event) 00:00:00 09:23:00 [facility] History of Social 2022-07-21 2022-07-21 Univers ity of function 00:00:00 00:00:00 [facility] Tobacco use and 2016-02-08 2016-02-08 User of Universit y of exposure 00:00:00 00:00:00 smokeless [facility] Sex [birth year] Universit y of 00:00:00 00:00:00 [facility] Smoking Status Start Date Stop Date Source Never smoked tobacco [facility] Medications Ordered Filled Start Stop Current Ordering Indication Dosage Frequency Signature Comments Components Source Medication Medication Date Date Medication? Clinician (SIG) Name Name HYDROcodone Yes 2745 1{tbl} Take 1 Un [facility] -acetaminop 8-23 tablet by ity of hen 5-325 00:00: mouth [place] mg tablet 00 every 6 Medical (six) Branch hours as needed for Pain (scale 4-6). Indication s: chronic pain HYDROcodone Yes 2745 1{tbl} Take 1 Un [place] -acetaminop 8-23 tablet by ity of hen 5-325 00:00: mouth [place] mg tablet 00 every 6 Medical (six) Branch hours as needed for Pain (scale 4-6). Indication s: chronic pain hydroCHLORO Yes [id number] 12.5mg Take 1 Univers thiazide 8-21 tablet by ity of 12.5 mg 00:00: mouth [place] tablet 00 every Medical morning. Branch sumatriptan 2022-0 Yes [id number] 100mg Take 1 Univers (IMITREX) 8-21 tablet by ity o f 100 mg 00:00: mouth as [place] tablet 00 needed for Medical Migraine. Branch May repeat the dose 2 hours after first dose. Do not take more than 200 mg in any 24-hour period hydroCHLORO 3-0 Yes [id number] 12.5mg Take 1 Univers thiazide 8-21 tablet by ity of 12.5 mg 00:00: mouth [place] tablet 00 every Medical morning. Branch sumatriptan 2022-0 Yes [id number] 100mg Take 1 Univers (IMITREX) 8-21 tablet by ity o f 100 mg 00:00: mouth as [place] tablet 00 needed for Medical Migraine. Branch May repeat the dose 2 hours after first dose. Do not take more than 200 mg in any 24-hour period hydroCHLORO 2022-0 Yes [id number] 12.5mg Take 1 Univers thiazide 8-21 tablet by ity of 12.5 mg 00:00: mouth [place] tablet 00 every Medical morning. Branch sumatriptan 2022-0 Yes [id number] 100mg Take 1 Univers (IMITREX) 8-21 tablet by ity o f 100 mg 00:00: mouth as [place] tablet 00 needed for Medical Migraine. Branch May repeat the dose 2 hours after first dose. Do not take more than 200 mg in any 24-hour period HYDROcodone 2022-0 Yes [id number] 1{tbl} Take 1 Un [place] -acetaminop 7-24 tablet by ity of hen 5-325 00:00: mouth [place] mg tablet 00 every 6 Medical (six) Branch hours as needed for Pain (scale 4-6). Indication s: chronic pain HYDROcodone 2022-0 Yes [id number] 1{tbl} Take 1 Un [place] -acetaminop 7-24 tablet by ity of hen 5-325 00:00: mouth [place] mg tablet 00 every 6 Medical (six) Branch hours as needed for Pain (scale 4-6). Indication s: chronic pain HYDROcodone 2022-0 Yes [id number] 1{tbl} Take 1 Un [place] -acetaminop 7-24 tablet by ity of hen 5-325 00:00: mouth [place] mg tablet 00 every 6 Medical (six) Branch hours as needed for Pain (scale 4-6). Indication s: chronic pain HYDROcodone 3-0 2023- No 2745 1{tbl} Take 1 U nivers -acetaminop 7-24 08-23 tablet by it y of hen 5-325 00:00: 00:00 mouth [place] mg tablet 00 :00 every 6 Medical (six) Branch hours as needed for Pain (scale 4-6). Indication s: chronic pain PROPRANOLOL 2022-0 Yes [id number] TAKE 1 Univers 20 mg 7-10 TABLET BY ity of tablet 00:00: MOUTH IN [place] 00 THE Medical MORNING Branch AND IN THE EVENING PROPRANOLOL 2022-0 Yes [id number] TAKE 1 Univers 20 mg 7-10 TABLET BY ity of tablet 00:00: MOUTH IN [place] 00 THE Medical MORNING Branch AND IN THE EVENING PROPRANOLOL 2022-0 Yes [id number] TAKE 1 Univers 20 mg 7-10 TABLET BY ity of tablet 00:00: MOUTH IN [place] [address] THE Medical MORNING Branch AND IN THE EVENING PROPRANOLOL 2022-0 Yes [id number] TAKE 1 Univers 20 mg 7-10 TABLET BY ity of tablet 00:00: MOUTH IN [place] [address] THE Medical MORNING Branch AND IN THE EVENING PROPRANOLOL 2022-0 Yes [id number] TAKE 1 Univers 20 mg 7-10 TABLET BY ity of tablet 00:00: MOUTH IN [place] 00 THE Medical MORNING Branch AND IN THE EVENING PROPRANOLOL 2022-0 Yes [id number] TAKE 1 Univers 20 mg 7-10 TABLET BY ity of tablet 00:00: MOUTH IN [place] [address] THE Medical MORNING Branch AND IN THE EVENING PROPRANOLOL 2022-0 Yes [id number] TAKE 1 Univers 20 mg 7-10 TABLET BY ity of tablet 00:00: MOUTH IN [place] 00 THE Medical MORNING Branch AND IN THE EVENING PROPRANOLOL 2022-0 Yes [id number] TAKE 1 Univers 20 mg 7-10 TABLET BY ity of tablet 00:00: MOUTH IN [place] [address] THE Medical MORNING Branch AND IN THE EVENING PROPRANOLOL 2022-0 Yes [id number] TAKE 1 Univers 20 mg 7-10 TABLET BY ity of tablet 00:00: MOUTH IN [place] [address] THE Medical MORNING Branch AND IN THE [...] 4-6). Indication s: chronic pain HYDROcodone 3-0 3- No [id number] 1{tbl} Take 1 U nivers -acetaminop 6-25 07-24 tablet by it y of hen 5-325 00:00: 00:00 mouth [place] mg tablet 00 :00 every 6 Medical (six) Branch hours as needed for Pain (scale 4-6). Indication s: chronic pain HYDROcodone 3-0 2022- No 2745 1{tbl} Take 1 U nivers -acetaminop 6-25 07-24 tablet by it y of hen 5-325 00:00: 00:00 mouth [place] mg tablet 00 :00 every 6 Medical (six) Branch hours as needed for Pain (scale 4-6). Indication s: chronic pain sumatriptan 2023-0 Yes [id number] 100mg Take 1 Univers (IMITREX) 5-25 tablet by ity o f 100 mg 00:00: mouth as [place] tablet 00 needed for Medical Migraine. Branch May repeat the dose 2 hours after first dose. Do not take more than 200 mg in any 24-hour period sumatriptan 2023-0 Yes [id number] 100mg Take 1 Univers (IMITREX) 5-25 tablet by ity o f 100 mg 00:00: mouth as [place] tablet 00 needed for Medical Migraine. Branch May repeat the dose 2 hours after first dose. Do not take more than 200 mg in any 24-hour period sumatriptan 2023-0 Yes [id number] 100mg Take 1 Univers (IMITREX) 5-25 tablet by ity o f 100 mg 00:00: mouth as [place] tablet 00 needed for Medical Migraine. Branch May repeat the dose 2 hours after first dose. Do not take more than 200 mg in any 24-hour period sumatriptan 2023-0 Yes [id number] 100mg Take 1 Univers (IMITREX) 5-25 tablet by ity o f 100 mg 00:00: mouth as [place] tablet 00 needed for Medical Migraine. Branch May repeat the dose 2 hours after first dose. Do not take more than 200 mg in any 24-hour period sumatriptan 2023-0 Yes [id number] 100mg Take 1 Univers (IMITREX) 5-25 tablet by ity o f 100 mg 00:00: mouth as [place] tablet 00 needed for Medical Migraine. Branch May repeat the dose 2 hours after first dose. Do not take more than 200 mg in any 24-hour period sumatriptan 2023-0 Yes [id number] 100mg Take 1 Univers (IMITREX) 5-25 tablet by ity o f 100 mg 00:00: mouth as [place] tablet 00 needed for Medical Migraine. Branch May repeat the dose 2 hours after first dose. Do not take more than 200 mg in any 24-hour period sumatriptan 2023-0 Yes [id number] 100mg Take 1 Univers (IMITREX) 5-25 tablet by ity o f 100 mg 00:00: mouth as [place] tablet 00 needed for Medical Migraine. Branch May repeat the dose 2 hours after first dose. Do not take more than 200 mg in any 24-hour period sumatriptan 3-0 Yes [id number] 100mg Take 1 Univers (IMITREX) 5-25 tablet by ity o f 100 mg 00:00: mouth as [place] tablet 00 needed for Medical Migraine. Branch May repeat the dose 2 hours after first dose. Do not take more than 200 mg in any 24-hour period sumatriptan 2023-0 Yes [id number] 100mg Take 1 Univers (IMITREX) 5-25 tablet by ity o f 100 mg 00:00: mouth as [place] tablet 00 needed for Medical Migraine. Branch May repeat the dose 2 hours after first dose. Do not take more than 200 mg in any 24-hour period sumatriptan 2023-0 Yes [id number] 100mg Take 1 Univers (IMITREX) 5-25 tablet by ity o f 100 mg 00:00: mouth as [place] tablet 00 needed for Medical Migraine. Branch May repeat the dose 2 hours after first dose. Do not take more than 200 mg in any 24-hour period sumatriptan 2022-0 Yes [id number] 100mg Take 1 Univers (IMITREX) 5-25 tablet by ity o f 100 mg 00:00: mouth as [place] tablet 00 needed for Medical Migraine. Branch May repeat the dose 2 hours after first dose. Do not take more than 200 mg in any 24-hour period sumatriptan 2022-0 Yes [id number] 100mg Take 1 Univers (IMITREX) 5-25 tablet by ity o f 100 mg 00:00: mouth as [place] tablet 00 needed for Medical Migraine. Branch May repeat the dose 2 hours after first dose. Do not take more than 200 mg in any 24-hour period sumatriptan 2022-0 202- No [id number] 100mg Take 1 Univers (IMITREX) 5-25 08-21 tablet by ity of 100 mg 00:00: 00:00 mouth as [place] tablet 00 :00 needed for Medical Migraine. Branch May repeat the dose 2 hours after first dose. Do not take more than 200 mg in any 24-hour period sumatriptan 2022-0 2022- No [id number] 100mg Take 1 Univers (IMITREX) 5-25 05-25 tablet by ity of 100 mg 00:00: 00:00 mouth as [place] tablet 00 :00 needed for Medical Migraine. Branch May repeat the dose 2 hours after first dose. Do not take more than 200 mg in any 24-hour period HYDROcodone 2022-0 Yes [id number] 1{tbl} Take 1 Un soco -acetaminop 5-24 tablet by ity of hen 5-325 00:00: mouth [place] mg tablet 00 every 6 Medical (six) Branch hours as needed for Pain (scale 4-6). Indication s: chronic pain zolpidem 10 2022-0 Yes [id number] 10mg Take 1 Univers mg tablet 5-24 tablet by ity o f 00:00: mouth at [place] 00 bedtime as Medical needed for Branch Insomnia. sumatriptan 2022-0 Yes [id number] 100mg Take 1 Univers (IMITREX) 5-24 tablet [...] Indication s: chronic pain zolpidem 10 Yes [id number] 10mg Take 1 Univers mg tablet 5-24 [...] Indication s: chronic pain zolpidem 10 Yes [id number] 10mg Take 1 Univers mg tablet 5-24 [...] Indication s: chronic pain zolpidem 10 Yes [id number] 10mg Take 1 Univers mg tablet 5-24 [...] Indication s: chronic pain zolpidem 10 Yes [id number] 10mg Take 1 Univers mg tablet 5-24 [...] Indication s: chronic pain zolpidem 10 Yes [id number] 10mg Take 1 Univers mg tablet 5-24 [...] Indication s: chronic pain zolpidem 10 Yes [id number] 10mg Take 1 Univers mg tablet 5-24 tablet by ity o f 00:00: mouth at [place] 00 bedtime as Medical needed for Branch Insomnia. zolpidem Yes [id number] 10mg Take 1 Univers mg tablet 5-24 tablet by ity o f 00:00: mouth at [place] 00 bedtime as Medical needed for Branch Insomnia. zolpidem Yes [id number] 10mg Take 1 Univers mg tablet 5-24 tablet by ity o f 00:00: mouth at [place] 00 bedtime as Medical needed for Branch Insomnia. zolpidem Yes [id number] 10mg Take 1 Univers mg tablet 5-24 tablet by ity o f 00:00: mouth at [place] 00 bedtime as Medical needed for Branch Insomnia. zolpidem 10 Yes [id number] 10mg Take 1 Univers mg tablet 5-24 tablet by ity o f 00:00: mouth at [place] 00 bedtime as Medical needed for Branch Insomnia. zolpidem 10 Yes [id number] 10mg Take 1 Univers mg tablet 5-24 tablet by ity o f 00:00: mouth at [place] 00 bedtime as Medical needed for Branch Insomnia. zolpidem 10 Yes [id number] 10mg Take 1 Univers mg tablet 5-24 tablet by ity o f 00:00: mouth at [place] 00 bedtime as Medical needed for Branch Insomnia. zolpidem 10 Yes [id number] 10mg Take 1 Univers mg tablet 5-24 tablet by ity o f 00:00: mouth at [place] 00 bedtime as Medical needed for Branch Insomnia. zolpidem 10 Yes [id number] 10mg Take 1 Univers mg tablet 5-24 tablet by ity o f 00:00: mouth at [place] 00 bedtime as Medical needed for Branch Insomnia. zolpidem 10 0 Yes [id number] 10mg Take 1 Univers mg tablet 5-24 tablet by ity o f 00:00: mouth at [place] 00 bedtime as Medical needed for Branch Insomnia. zolpidem 10 Yes [id number] 10mg Take 1 Univers mg tablet 5-24 [...] Indication s: chronic pain sumatriptan 2022- No [id number] 100mg Take 1 Univers (IMITREX) 5-24 05-25 tablet by ity of 100 mg 00:00: 00:00 mouth as [place] tablet 00 :00 needed for Medical Migraine. Branch sumatriptan 2022- No [id number] 100mg Take 1 Univers (IMITREX) 5-24 05-25 tablet by ity of 100 mg 00:00: 00:00 mouth as [place] tablet 00 :00 needed for Medical Migraine. Branch HYDROCHLORO Yes [id number] 12.5mg TAKE 1 Univers THIAZIDE 4-26 TABLET BY ity of 12.5 mg 00:00: MOUTH [place] tablet 00 EVERY Medical MORNING Branch HYDROCHLORO 2022-0 Yes [id number] 12.5mg TAKE 1 Univers THIAZIDE 4-26 TABLET BY ity of 12.5 mg 00:00: MOUTH [place] tablet 00 EVERY Medical MORNING Branch HYDROCHLORO 2022-0 Yes [id number] 12.5mg TAKE 1 Univers THIAZIDE 4-26 TABLET BY ity of 12.5 mg 00:00: MOUTH [place] tablet 00 EVERY Medical MORNING Branch HYDROCHLORO 2022-0 Yes [id number] 12.5mg TAKE 1 Univers THIAZIDE 4-26 TABLET BY ity of 12.5 mg 00:00: MOUTH [place] tablet 00 EVERY Medical MORNING Branch HYDROCHLORO 2023-0 Yes [id number] 12.5mg TAKE 1 Univers THIAZIDE 4-26 TABLET BY ity of 12.5 mg 00:00: MOUTH [place] tablet 00 EVERY Medical MORNING Branch HYDROCHLORO 2023-0 Yes [id number] 12.5mg TAKE 1 Univers THIAZIDE 4-26 TABLET BY ity of 12.5 mg 00:00: MOUTH [place] tablet 00 EVERY Medical MORNING Branch HYDROCHLORO 2023-0 Yes [id number] 12.5mg TAKE 1 Univers THIAZIDE 4-26 TABLET BY ity of 12.5 mg 00:00: MOUTH [place] tablet 00 EVERY Medical MORNING Branch HYDROCHLORO 2023-0 Yes [id number] 12.5mg TAKE 1 Univers THIAZIDE 4-26 TABLET BY ity of 12.5 mg 00:00: MOUTH [place] tablet 00 EVERY Medical MORNING Branch HYDROCHLORO 2023-0 Yes [id number] 12.5mg TAKE 1 Univers THIAZIDE 4-26 TABLET BY ity of 12.5 mg 00:00: MOUTH [place] tablet 00 EVERY Medical MORNING Branch HYDROCHLORO 2023-0 Yes [id number] 12.5mg TAKE 1 Univers THIAZIDE 4-26 TABLET BY ity of 12.5 mg 00:00: MOUTH [place] tablet 00 EVERY Medical MORNING Branch HYDROCHLORO 2023-0 Yes [id number] 12.5mg TAKE 1 Univers THIAZIDE 4-26 TABLET BY ity of 12.5 mg 00:00: MOUTH [place] tablet 00 EVERY Medical MORNING Branch HYDROCHLORO 2023-0 Yes [id number] 12.5mg TAKE 1 Univers THIAZIDE 4-26 TABLET BY ity of 12.5 mg 00:00: MOUTH [place] tablet 00 EVERY Medical MORNING Branch HYDROCHLORO 2023-0 Yes [id number] 12.5mg TAKE 1 Univers THIAZIDE 4-26 TABLET BY ity of 12.5 mg 00:00: MOUTH [place] tablet 00 EVERY Medical MORNING Branch HYDROCHLORO 2023-0 Yes [id number] 12.5mg TAKE 1 [facility] THIAZIDE 4-26 TABLET BY ity of 12.5 mg 00:00: MOUTH [place] tablet 00 EVERY Medical MORNING Branch HYDROCHLORO 2023-0 Yes [id number] 12.5mg TAKE 1 [facility] THIAZIDE 4-26 TABLET BY ity of 12.5 mg 00:00: MOUTH [place] tablet 00 EVERY Medical MORNING Branch HYDROCHLORO 2023-0 Yes [id number] 12.5mg TAKE 1 [facility] THIAZIDE 4-26 TABLET BY ity of 12.5 mg 00:00: MOUTH [place] tablet 00 EVERY Medical MORNING Branch HYDROCHLORO 2022- No [id number] 12.5mg TAKE 1 Univers THIAZIDE 4-26 08-21 TABLET BY ity o f 12.5 mg 00:00: 00:00 MOUTH [place] tablet 00 :00 EVERY Medical MORNING Branch HYDROcodone 0 Yes [id number] 1{tbl} Take 1 Un [facility] -acetaminop 4-17 tablet by ity of hen 5-325 00:00: mouth [place] mg tablet 00 every 6 Medical (six) Branch hours as needed for Pain (scale 4-6). Indication s: chronic pain zolpidem 10 Yes [id number] 10mg Take 1 Univers mg tablet 4-17 tablet by ity o f 00:00: mouth at [place] 00 bedtime as Medical needed for Branch Insomnia. sumatriptan Yes [id number] 100mg Take 1 Univers (IMITREX) 4-17 tablet [...] Indication s: chronic pain zolpidem 10 Yes [id number] 10mg Take 1 Univers mg tablet 4-17 tablet by ity o f 00:00: mouth at [place] 00 bedtime as Medical needed for Branch Insomnia. sumatriptan Yes [id number] 100mg Take 1 Univers (IMITREX) 4-17 tablet [...] Indication s: chronic pain zolpidem 10 Yes [id number] 10mg Take 1 Univers mg tablet 4-17 tablet by ity o f 00:00: mouth at [place] 00 bedtime as Medical needed for Branch Insomnia. sumatriptan 2022- Yes [id number] 100mg Take 1 Univers (IMITREX) 4-17 tablet by ity o f 100 mg 00:00: mouth as [place] tablet 00 needed for Medical Migraine. Branch HYDROcodone 2022- No [id number] 1{tbl} Take 1 U nivers -acetaminop -17 -24 tablet by it y of hen 5-325 00:00: 00:00 mouth [place] mg tablet 00 :00 every 6 Medical (six) Branch hours as needed for Pain (scale 4-6). Indication s: chronic pain zolpidem 10 2022- No [id number] 10mg Take 1 [facility] mg tablet 11-07-24 tablet by ity of 00:00: 00:00 mouth at [place] 00 :00 bedtime as Medical needed for Branch Insomnia. sumatriptan 2022- No [id number] 100mg Take 1 Univers (IMITREX) 4-17 -24 [...] every Medical month. Branch fluticasone 2022-0 Yes [id number] 1{spray Use 1 Univers propionate 3-29 } [place] in ity o f 50 00:00: each [place] mcg/actuati 00 nostril in Me dical on nasal the Branch spray morning. fluticasone 2022-0 Yes [id number] 1{spray Use 1 Univers propionate 3-29 } [place] in ity o f 50 00:00: each [place] mcg/actuati 00 nostril in Me dical on nasal the Branch spray morning. fluticasone 2022-0 Yes [id number] 1{spray Use 1 Univers propionate 3-29 } [place] in ity o f 50 00:00: each [place] mcg/actuati 00 nostril in Me dical on nasal the Branch spray morning. fluticasone 3-0 Yes [id number] 1{spray Use 1 Univers propionate 3-29 } [place] in ity o f 50 00:00: each [place] mcg/actuati 00 nostril in Me dical on nasal the Branch spray morning. fluticasone 3-0 Yes [id number] 1{spray Use 1 Univers propionate 3-29 } [place] in ity o f 50 00:00: each [place] mcg/actuati 00 nostril in Me dical on nasal the Branch spray morning. fluticasone 3-0 Yes [id number] 1{spray Use 1 Univers propionate 3-29 } [place] in ity o f 50 00:00: each [place] mcg/actuati 00 nostril in Me dical on nasal the Branch spray morning. fluticasone 2022-0 Yes [id number] 1{spray Use 1 Univers propionate 3-29 } [place] in it o 50 00:00: each [place] mcg/actuati 00 nostril in Me dical on nasal the Branch spray morning. fluticasone 2022-0 Yes [id number] 1{spray Use 1 Univers propionate 3-29 } [place] in it o 50 00:00: each [place] mcg/actuati 00 nostril in Me dical on nasal the Branch spray morning. fluticasone 2022-0 Yes [id number] 1{spray Use 1 [facility] propionate 3-29 } [place] in it o 50 00:00: each [place] mcg/actuati 00 nostril in Me dical on nasal the Branch spray morning. fluticasone 2022-0 Yes [id number] 1{spray Use 1 Univers propionate 3-29 } [place] in it o 50 00:00: each [place] mcg/actuati 00 nostril in Me dical on nasal the Branch spray morning. fluticasone 2022-0 Yes [id number] 1{spray Use 1 [facility] propionate 3-29 } [place] in [facility] o 50 00:00: each [place] mcg/actuati 00 nostril in Me dical on nasal the Branch spray morning. fluticasone 2022-0 Yes [id number] 1{spray Use 1 Univers propionate 3-29 } [place] in it o 50 00:00: each [place] mcg/actuati 00 nostril in Me dical on nasal the Branch spray morning. fluticasone 2022-0 Yes [id number] 1{spray Use 1 [facility] propionate 3-29 } [place] in it o 50 00:00: each [place] mcg/actuati 00 nostril in Me dical on nasal the Branch spray morning. fluticasone 2022-0 Yes [id number] 1{spray Use 1 Univers propionate 3-29 } [place] in it o 50 00:00: each [place] mcg/actuati 00 nostril in Me dical on nasal the Branch spray morning. fluticasone 2022-0 Yes [id number] 1{spray Use 1 [facility] propionate 3-29 } [place] in it o 50 00:00: each [place] mcg/actuati 00 nostril in Me dical on nasal the Branch spray morning. fluticasone 2022-0 Yes [id number] 1{spray Use 1 [facility] propionate 3-29 } [place] in ity o f 50 00:00: each [place] mcg/actuati 00 nostril in Me dical on nasal the Branch spray morning. fluticasone 2022-0 Yes [id number] 1{spray Use 1 [facility] propionate 3-29 } [place] in it o 50 00:00: each [place] mcg/actuati 00 nostril in Me dical on nasal the Branch spray morning. fluticasone 2022-0 Yes [id number] 1{spray Use 1 [facility] propionate 3-29 } [place] in ity o 50 00:00: each [place] mcg/actuati 00 nostril in Me dical on nasal the Branch spray morning. fluticasone 0 Yes [id number] 1{spray Use 1 [facility] propionate 3-29 } [place] in it o 50 00:00: each [place] mcg/actuati 00 nostril in Me dical on nasal the Branch spray morning. fluticasone 0 Yes [id number] 1{spray Use 1 [facility] propionate 3-29 } [place] in ity o f 50 00:00: each [place] mcg/actuati 00 nostril in Me dical on nasal the Branch spray morning. fluticasone 0 Yes [id number] 1{spray Use 1 [facility] propionate 3-29 } [place] in it o f 50 00:00: each [place] mcg/actuati 00 nostril in Me dical on nasal the Branch spray morning. fluticasone 2022-0 Yes [id number] 1{spray Use 1 [facility] propionate 3-29 } [place] in ity o f 50 00:00: each [place] mcg/actuati 00 nostril in Me dical on nasal the Branch spray morning. fluticasone 2022-0 Yes [id number] 1{spray Use 1 [facility] propionate 3-29 } [place] in ity o f 50 00:00: each [place] mcg/actuati 00 nostril in Me dical on nasal the Branch spray morning. triamcinolo 2022-0 2022- No [id number] 40mg [facility] ne 3-28 03-28 ity of acetonide 16:00: 15:11 [place] (KENALOG) 00 :00 Medical injection Branch 40 mg triamcinolo 0 2022- No [id number] 40mg 40 mg, [facility] ne 10-18 Intramuscu ity of acetonide 16:00: 15:11 [place], ONCE, [place] (KENALOG) 00 :00 1 dose, On Medi dyan injection Tue Branch 40 mg 10/18/22 at 1100, Routine triamcinolo 2022-0 2022- No [id number] 40mg [facility] ne 10-18 ity of acetonide 16:00: 15:11 [place] (KENALOG) 00 :00 Medical injection Branch 40 mg triamcinolo 0 2022- No [id number] 40mg 40 mg, [facility] ne 10-18 Intramuscu ity of acetonide 16:00: 15:11 [place]CE, [place] (KENALOG[place] 00 :00 1 dose, On Medi dyan injection Tue Branch 40 mg 10/18/22 at 1100, Routine methylPREDN 2022- No [id number] 80mg [facility] ISolone 10-18 ity of acetate 15:45: 15:10 [place] (DEPO-MEDRO 00 :00 Medical L) Branch injection 80 mg methylPREDN 2022- No [id number] 80mg 80 mg, [facility] ISolone 10-18 Intramuscu ity o f acetate 15:45: 15:10 lar, ONCE, [place] (DEPO-MEDRO 00 :00 1 dose, On Me dical L) Tue Branch injection 10/18/22 at 80 mg 1045, Routine methylPREDN 2022- No [id number] 80mg [facility] ISolone 10-18 ity of acetate 15:45: 15:10 [place] (DEPO-MEDRO 00 :00 Medical L) Branch injection 80 mg methylPREDN 2022- No [id number] 80mg 80 mg, [facility] ISolone 10-18 Intramuscu ity o f acetate 15:45: 15:10 [place], ONCE, [place] (DEPO-MEDRO 00 :00 1 dose, On Me dical L) Tue Branch injection 10/18/22 at 80 mg 1045, Routine HYDROcodone 2022-0 Yes [id number] 1{tbl} Take 1 [...] Indication s: chronic pain PROPRANOLOL 2023-0 Yes [id number] TAKE 1 [facility] 20 mg 3-27 TABLET BY ity of tablet 00:00: MOUTH IN [place] 00 THE Medical MORNING Branch AND IN THE EVENING HYDROcodone 2022-0 Yes [id number] 1{tbl} Take 1 [facility] -acetaminop 3-27 tablet by ity of hen 5-325 00:00: mouth [place] mg tablet 00 every 6 Medical (six) Branch hours as needed for Pain (scale 4-6). Indication s: chronic pain PROPRANOLOL 3-0 Yes [id number] TAKE 1 [facility] 20 mg 3-27 TABLET BY ity of tablet 00:00: MOUTH IN [place] 00 THE Medical MORNING Branch AND IN THE EVENING HYDROcodone 2022-0 Yes [id number] 1{tbl} Take 1 [facility] -acetaminop 3-27 tablet by ity of hen 5-325 00:00: mouth [place] mg tablet 00 every 6 Medical (six) Branch hours as needed for Pain (scale 4-6). Indication s: chronic pain PROPRANOLOL 3-0 Yes [id number] TAKE 1 [facility] 20 mg 3-27 TABLET BY ity of tablet 00:00: MOUTH IN [place] 00 THE Medical MORNING Branch AND IN THE EVENING HYDROcodone 2023-0 Yes [id number] 1{tbl} Take 1 [facility] -acetaminop 3-27 tablet by ity of hen 5-325 00:00: mouth [place] mg tablet 00 every 6 Medical (six) Branch hours as needed for Pain (scale 4-6). Indication s: chronic pain PROPRANOLOL 2023-0 Yes [id number] TAKE 1 [facility] 20 mg 3-27 TABLET BY ity of tablet 00:00: MOUTH IN [place] 00 THE Medical MORNING Branch AND IN THE EVENING HYDROcodone 2023-0 Yes [id number] 1{tbl} Take 1 [facility] -acetaminop 3-27 tablet by ity of hen 5-325 00:00: mouth [place] mg tablet 00 every 6 Medical (six) Branch hours as needed for Pain (scale 4-6). Indication s: chronic pain PROPRANOLOL 0 Yes [id number] TAKE 1 [facility] 20 mg 3-27 TABLET BY ity of tablet 00:00: MOUTH IN [place] [address] THE Medical MORNING Branch AND IN THE EVENING PROPRANOLOL 0 Yes [id number] TAKE 1 [facility] 20 mg 3-27 TABLET BY ity of tablet 00:00: MOUTH IN [place] [address] THE Medical MORNING Branch AND IN THE EVENING PROPRANOLOL Yes [id number] TAKE 1 [facility] 20 mg 3-27 TABLET BY ity of tablet 00:00: MOUTH IN [place] [address] THE Medical MORNING Branch AND IN THE EVENING PROPRANOLOL Yes [id number] TAKE 1 [facility] 20 mg 3-27 TABLET BY ity of tablet 00:00: MOUTH IN [place] [address] THE Medical MORNING Branch AND IN THE EVENING PROPRANOLOL 0 Yes [id number] TAKE 1 [facility] 20 mg 3-27 TABLET BY ity of tablet 00:00: MOUTH IN [place] [address] THE Medical MORNING Branch AND IN THE EVENING PROPRANOLOL 0 Yes [id number] TAKE 1 [facility] 20 mg 3-27 TABLET BY ity of tablet 00:00: MOUTH IN [place] [address] THE Medical MORNING Branch AND IN THE EVENING PROPRANOLOL 0 Yes [id number] TAKE 1 [facility] 20 mg 3-27 TABLET BY ity of tablet 00:00: MOUTH IN [place] [address] THE Medical MORNING Branch AND IN THE EVENING PROPRANOLOL 0 Yes [id number] TAKE 1 [facility] 20 mg 3-27 TABLET BY ity of tablet 00:00: MOUTH IN [place] [address] THE Medical MORNING Branch AND IN THE EVENING PROPRANOLOL 0 Yes [id number] TAKE 1 [facility] 20 mg 3-27 TABLET BY ity of tablet 00:00: MOUTH IN [place] [address] THE Medical MORNING Branch AND IN THE EVENING PROPRANOLOL 0 Yes [id number] TAKE 1 [facility] 20 mg 3-27 TABLET BY ity of tablet 00:00: MOUTH IN [place] [address] THE Medical MORNING Branch AND IN THE EVENING PROPRANOLOL 0 Yes [id number] TAKE 1 [facility] 20 mg 3-27 TABLET BY ity of tablet 00:00: MOUTH IN [place] [address] THE Medical MORNING Branch AND IN THE EVENING PROPRANOLOL 2023-0 Yes [id number] TAKE 1 [facility] 20 mg 3-27 TABLET BY ity of tablet 00:00: MOUTH IN [place] 00 THE Medical MORNING Branch AND IN THE EVENING PROPRANOLOL 2022-0 Yes [id number] TAKE 1 [facility] 20 mg 3-27 TABLET BY ity of tablet 00:00: MOUTH IN [place] 00 THE Medical MORNING Branch AND IN THE EVENING PROPRANOLOL 2022-0 2023- No [id number] TAKE 1 [facility] 20 mg 3-27 07-10 TABLET BY ity of tablet 00:00: 00:00 MOUTH IN [place] 00 :00 THE Medical MORNING Branch AND IN THE EVENING HYDROcodone 2022-0 2022- No [id number] 1{tbl} Take [...] 4-6). Indication s: chronic pain HYDROcodone 2022-0 2023- No [id number] 1{tbl} Take 1 [facility] -acetaminop 2-22 03-27 tablet by it y of hen 5-325 00:00: 00:00 mouth [place] mg tablet 00 :00 every 6 Medical (six) Branch hours as needed for Pain (scale 4-6). Indication s: chronic pain hydrALAZINE 2023-0 Yes 25mg Take 1 [facility] ers 25 mg 2-07 tablet by ity of tablet 00:00: mouth in [place] [address] the Medical morning Branch and 1 tablet [...] by ity of tablet 00:00: mouth in [place] [address] the morning. Branch hydrALAZINE 2023-0 Yes 25mg Take 1 [facility] ers 25 mg 2-07 tablet by ity of tablet 00:00: mouth in [place] [address] the Medical morning Branch and 1 tablet [...] by ity of tablet 00:00: mouth in [place] the morning. Branch hydrALAZINE 2023-0 Yes 25mg Take 1 [facility] ers 25 mg 2-07 tablet by ity of tablet 00:00: mouth in [place] [address] the Medical morning Branch and 1 tablet [...] by ity of tablet 00:00: mouth in [place] [address] the morning. Branch hydrALAZINE 2023-0 Yes 25mg Take 1 [facility] ers 25 mg 2-07 tablet by ity of tablet 00:00: mouth in [place] the morning Branch and 1 tablet at [...] by ity of tablet 00:00: mouth in [place] the morning. Branch hydrALAZINE 2023-0 Yes 25mg Take 1 [facility] ers 25 mg 2-07 tablet by ity of tablet 00:00: mouth in [place] the morning Branch and 1 tablet at [...] by ity of tablet 00:00: mouth in [place] the morning. Branch hydrALAZINE 2023-0 Yes 25mg Take 1 [facility] ers 25 mg 2-07 tablet by ity of tablet 00:00: mouth in [place] the morning Branch and 1 tablet at [...] by ity of tablet 00:00: mouth in [place] the morning. Branch hydrALAZINE 2023-0 Yes 25mg Take 1 [facility] ers 25 mg 2-07 tablet by ity of tablet 00:00: mouth in [place] [address] the morning Branch and 1 tablet at [...] by ity of tablet 00:00: mouth in [place] the morning. Branch hydrALAZINE 2023-0 Yes 25mg Take 1 [facility] ers 25 mg 2-07 tablet by ity of tablet 00:00: mouth in [place] the morning Branch and 1 tablet at [...] by ity of tablet 00:00: mouth in [place] the morning. Branch hydrALAZINE 2023-0 Yes 25mg Take 1 [facility] ers 25 mg 2-07 tablet by ity of tablet 00:00: mouth in [place] the morning Branch and 1 tablet at [...] by ity of tablet 00:00: mouth in [place] the morning. Branch hydrALAZINE 2023-0 Yes 25mg Take 1 [facility] ers 25 mg 2-07 tablet by ity of tablet 00:00: mouth in [place] [address] the Medical morning Branch and 1 tablet [...] by ity of tablet 00:00: mouth in [place] [address] the morning. Branch hydrALAZINE 2023-0 Yes 25mg Take 1 [facility] ers 25 mg 2-07 tablet by ity of tablet 00:00: mouth in [place] the morning Branch and 1 tablet at [...] by ity of tablet 00:00: mouth in [place] the morning. Branch hydrALAZINE 2023-0 Yes 25mg Take 1 [facility] ers 25 mg 2-07 tablet by ity of tablet 00:00: mouth in [place] the morning Branch and 1 tablet at [...] by ity of tablet 00:00: mouth in [place] the . Branch hydrALAZINE 2023-0 Yes 25mg Take 1 [facility] ers 25 mg 2-07 tablet by ity of tablet 00:00: mouth in [place] [address] the morning Branch and 1 tablet at [...] by ity of tablet 00:00: mouth in [place] the morning. Branch hydrALAZINE 2023-0 Yes 25mg Take 1 [facility] ers 25 mg 2-07 tablet by ity of tablet 00:00: mouth in [place] [address] the morning Branch and 1 tablet at [...] by ity of tablet 00:00: mouth in [place] the morning. Branch hydrALAZINE 2023-0 Yes 25mg Take 1 [facility] ers 25 mg 2-07 tablet by ity of tablet 00:00: mouth in [place] the morning Branch and 1 tablet at [...] by ity of tablet 00:00: mouth in [place] the morning. Branch hydrALAZINE 2023-0 Yes 25mg Take 1 [facility] ers 25 mg 2-07 tablet by ity of tablet 00:00: mouth in [place] the morning Branch and 1 tablet at [...] by ity of tablet 00:00: mouth in [place] the morning. Branch hydrALAZINE 2023-0 Yes 25mg Take 1 [facility] ers 25 mg 2-07 tablet by ity of tablet 00:00: mouth in [place] [address] the morning Branch and 1 tablet at [...] by ity of tablet 00:00: mouth in [place] the morning. Branch hydrALAZINE 2023-0 Yes 25mg Take 1 [facility] ers 25 mg 2-07 tablet by ity of tablet 00:00: mouth in [place] the morning Branch and 1 tablet at [...] by ity of tablet 00:00: mouth in [place] the morning. Branch hydrALAZINE 2023-0 Yes 25mg Take 1 [facility] ers 25 mg 2-07 tablet by ity of tablet 00:00: mouth in [place] the morning Branch and 1 tablet at [...] by ity of tablet 00:00: mouth in [place] the . Branch hydrALAZINE 2023-0 Yes 25mg Take 1 [facility] ers 25 mg 2-07 tablet by ity of tablet 00:00: mouth in [place] [address] the morning Branch and 1 tablet at [...] by ity of tablet 00:00: mouth in [place] [address] the morning. Branch hydrALAZINE 2023-0 Yes 25mg Take 1 [facility] ers 25 mg 2-07 tablet by ity of tablet 00:00: mouth in [place] [address] the morning Branch and 1 tablet at [...] by ity of tablet 00:00: mouth in [place] 00 the Medical morning. Branch hydrALAZINE 2023-0 Yes 25mg Take 1 [facility] ers 25 mg 2-07 tablet by ity of tablet 00:00: mouth in [place] 00 the Medical morning Branch and 1 [...] by ity of tablet 00:00: mouth in [place] 00 the Medical morning. Branch hydrALAZINE 2023-0 Yes 25mg Take 1 [facility] ers 25 mg 2-07 tablet by ity of tablet 00:00: mouth in [place] 00 the Medical morning Branch and 1 [...] by ity of tablet 00:00: mouth in [place] 00 the Medical morning. Branch HYDROcodone 2023-0 Yes [id number] 1{tbl} Take 1 [...] Indication s: chronic pain sumatriptan 3-0 Yes [id number] 100mg Take 1 [facility] (IMITREX) 1-23 tablet by ity o f 100 mg 00:00: mouth as [place] tablet 00 needed for Medical Migraine. Branch sumatriptan 2023-0 Yes [id number] 100mg Take 1 [facility] (IMITREX) 1-23 tablet by ity o f 100 mg 00:00: mouth as [place] tablet 00 needed for Medical Migraine. Branch sumatriptan 3-0 Yes [id number] 100mg Take 1 [facility] (IMITREX) 1-23 tablet by ity o f 100 mg 00:00: mouth as [place] tablet 00 needed for Medical Migraine. Branch sumatriptan 2023-0 Yes [id number] 100mg Take 1 [facility] (IMITREX) 1-23 tablet by ity o f 100 mg 00:00: mouth as [place] tablet 00 needed for Medical Migraine. Branch sumatriptan 2023-0 Yes [id number] 100mg Take 1 [facility] (IMITREX) 1-23 tablet by ity o f 100 mg 00:00: mouth as [place] tablet 00 needed for Medical Migraine. Branch sumatriptan 3-0 Yes [id number] 100mg Take 1 [facility] (IMITREX) 1-23 tablet by ity o f 100 mg 00:00: mouth as [place] tablet 00 needed for Medical Migraine. Branch sumatriptan 3-0 Yes [id number] 100mg Take 1 [facility] (IMITREX) 1-23 tablet by ity o f 100 mg 00:00: mouth as [place] tablet 00 needed for Medical Migraine. Branch sumatriptan 3-0 Yes [id number] 100mg Take 1 [facility] (IMITREX) 1-23 tablet by ity o f 100 mg 00:00: mouth as [place] tablet 00 needed for Medical Migraine. Branch sumatriptan 3-0 Yes [id number] 100mg Take 1 [facility] (IMITREX) 1-23 tablet by ity o f 100 mg 00:00: mouth as [place] tablet 00 needed for Medical Migraine. Branch sumatriptan 3-0 Yes [id number] 100mg Take 1 [facility] (IMITREX) 1-23 tablet by ity o f 100 mg 00:00: mouth as [place] tablet 00 needed for Medical Migraine. Branch sumatriptan 3-0 Yes [id number] 100mg Take 1 [facility] (IMITREX) 1-23 tablet by ity o f 100 mg 00:00: mouth as [place] tablet 00 needed for Medical Migraine. Branch sumatriptan 3-0 Yes [id number] 100mg Take 1 [facility] (IMITREX) 1-23 tablet by ity o f 100 mg 00:00: mouth as [place] tablet 00 needed for Medical Migraine. Branch sumatriptan 3-0 Yes [id number] 100mg Take 1 [facility] (IMITREX) 1-23 tablet by ity o f 100 mg 00:00: mouth as [place] tablet 00 needed for Medical Migraine. Branch sumatriptan 3-0 Yes [id number] 100mg Take 1 [facility] (IMITREX) 1-23 tablet by ity o f 100 mg 00:00: mouth as [place] tablet 00 needed for Medical Migraine. Branch sumatriptan 3-0 Yes [id number] 100mg Take 1 [facility] (IMITREX) 1-23 tablet by ity o f 100 mg 00:00: mouth as [place] tablet 00 needed for Medical Migraine. Branch sumatriptan 2023-0 Yes [id number] 100mg Take 1 [facility] (IMITREX) 1-23 tablet by ity o f 100 mg 00:00: mouth as [place] tablet 00 needed for Medical Migraine. Branch sumatriptan Yes [id number] 100mg Take 1 [facility] (IMITREX) 1-23 tablet by ity o f 100 mg 00:00: mouth as [place] tablet 00 needed for Medical Migraine. Branch sumatriptan Yes [id number] 100mg Take 1 [facility] (IMITREX) 1-23 tablet by ity o f 100 mg 00:00: mouth as [place] tablet 00 needed for Medical Migraine. Branch sumatriptan Yes [id number] 100mg Take 1 [facility] (IMITREX) 1-23 tablet by ity o f 100 mg 00:00: mouth as [place] tablet 00 needed for Medical Migraine. Branch sumatriptan 2022- No [id number] 100mg Take 1 [facility] (IMITREX) 1-23 04-17 tablet by ity of 100 mg 00:00: 00:00 mouth as [place] tablet 00 :00 needed for Medical Migraine. Branch propranoloL 2021-07 Yes [id number] 20mg Take 1 [facility] 20 mg 2-29 tablet by ity of tablet 00:00: mouth in [place] 00 the Medical morning Branch and 1 tablet in the evening. sumatriptan 2021-07 Yes [id number] 100mg Take 1 [facility] (IMITREX) 2-29 tablet by ity o f 100 mg 00:00: mouth as [place] tablet 00 needed for Medical Migraine. Branch propranoloL 2021-07 Yes [id number] 20mg Take 1 [facility] 20 mg 2-29 tablet by ity of tablet 00:00: mouth in [place] 00 the Medical morning Branch and 1 tablet in the evening. sumatriptan 2021-07 Yes [id number] 100mg Take 1 [facility] (IMITREX) 2-29 tablet by ity o f 100 mg 00:00: mouth as [place] tablet 00 needed for Medical Migraine. Branch propranoloL 2021-07 Yes [id number] 20mg Take 1 [facility] 20 mg 2-29 tablet by ity of tablet 00:00: mouth in [place] 00 the Medical morning Branch and 1 tablet in the evening. sumatriptan 2021-07 Yes [id number] 100mg Take 1 [facility] (IMITREX) 2-29 tablet by ity o f 100 mg 00:00: mouth as [place] tablet 00 needed for Medical Migraine. Branch propranoloL 2021- Yes [id number] 20mg Take 1 [facility] 20 mg 2-29 tablet by ity of tablet 00:00: mouth in [place] 00 the Medical morning Branch and 1 tablet in the evening. sumatriptan 2021-1 Yes [id number] 100mg Take 1 [facility] (IMITREX) 2-29 tablet by ity o f 100 mg 00:00: mouth as [place] tablet 00 needed for Medical Migraine. Branch propranoloL 2021-1 Yes [id number] 20mg Take 1 [facility] 20 mg 2-29 tablet by ity of tablet 00:00: mouth in [place] 00 the Medical morning Branch and 1 tablet in the evening. sumatriptan 2021-1 Yes [id number] 100mg Take 1 [facility] (IMITREX) 2-29 tablet by ity o f 100 mg 00:00: mouth as [place] tablet 00 needed for Medical Migraine. Branch propranoloL 2021-1 Yes [id number] 20mg Take 1 [facility] 20 mg 2-29 tablet by ity of tablet 00:00: mouth in [place] 00 the Medical morning Branch and 1 tablet in the evening. propranoloL 2021-1 Yes [id number] 20mg Take 1 [facility] 20 mg 2-29 tablet by ity of tablet 00:00: mouth in [place] 00 the Medical morning Branch and 1 tablet in the evening. propranoloL 2021-1 Yes [id number] 20mg Take 1 [facility] 20 mg 2-29 tablet by ity of tablet 00:00: mouth in [place] 00 the Medical morning Branch and 1 tablet in the evening. propranoloL 2021-1 Yes [id number] 20mg Take 1 [facility] 20 mg 2-29 tablet by ity of tablet 00:00: mouth in [place] 00 the Medical morning Branch and 1 tablet in the evening. propranoloL 2021-1 Yes [id number] 20mg Take 1 [facility] 20 mg 2-29 tablet by ity of tablet 00:00: mouth in [place] 00 the Medical morning Branch and 1 tablet in the evening. propranoloL 2021-1 Yes [id number] 20mg Take 1 [facility] 20 mg 2-29 tablet by ity of tablet 00:00: mouth in [place] 00 the Medical morning Branch and 1 tablet in the evening. propranoloL 2021-1 Yes [id number] 20mg Take 1 [facility] 20 mg 2-29 tablet by ity of tablet 00:00: mouth in [place] 00 the Medical morning Branch and 1 tablet in the evening. propranoloL 2021-07 Yes [id number] 20mg Take 1 [facility] 20 mg 2-29 tablet by ity of tablet 00:00: mouth in [place] 00 the Medical morning Branch and 1 tablet in the evening. propranoloL 2021-07 Yes [id number] 20mg Take 1 [facility] 20 mg 2-29 tablet by ity of tablet 00:00: mouth in [place] 00 the Medical morning Branch and 1 tablet in the evening. propranoloL 2021-07 Yes [id number] 20mg Take 1 [facility] 20 mg 2-29 tablet by ity of tablet 00:00: mouth in [place] 00 the Medical morning Branch and 1 tablet in the evening. propranoloL 2021-07 Yes [id number] 20mg Take 1 [facility] 20 mg 2-29 tablet by ity of tablet 00:00: mouth in [place] [address] the Medical morning Branch and 1 tablet in the evening. propranoloL 2021-07 Yes [id number] 20mg Take 1 [facility] 20 mg 2-29 tablet by ity of tablet 00:00: mouth in [place] [address] the [facility] morning [place] and 1 tablet in the evening. propranoloL 2021-07 Yes [id number] 20mg Take 1 [facility] 20 mg 2-29 tablet by ity of tablet 00:00: mouth in [place] 00 the [facility] morning [place] and 1 tablet in the evening. propranoloL 2021-07 Yes [id number] 20mg Take 1 [facility] 20 mg 2-29 tablet by ity of tablet 00:00: mouth in [place] 00 the [facility] morning [place] and 1 tablet in the evening. propranoloL 2021-07- No [id number] 20mg Take 1 [facility] 20 mg 2-29 03-27 tablet by ity of tablet 00:00: 00:00 mouth in [place] 00 :00 the [facility] morning [place] and 1 tablet in the evening. sumatriptan 2021-07- No [id number] 100mg Take 1 [facility] (IMITREX) 2-21 08- tablet by ity of 100 mg 00:00: 00:00 mouth as [place] tablet 00 :00 needed for Medical Migraine. Branch sumatriptan 2021-07- No [id number] 100mg Take 1 [facility] (IMITREX) 2-21 08- tablet by ity of 100 mg 00:00: 00:00 mouth as [place] tablet 00 :00 needed for Medical Migraine. [...] Indication s: chronic pain butalbital- 2021-07 Yes [id number] 1{capsu Take 1 [facility] aspirin-caf 2-23 le} capsule by it y of feine 00:00: mouth [place] (FIORINAL) 00 every 4 Medica l 50-325-40 (four) Branch mg per hours as capsule needed for Pain. butalbital- 2021-07 Yes [id number] 1{capsu Take 1 [facility] aspirin-caf 2-23 le} capsule by it y of feine 00:00: mouth [place] (FIORINAL) 00 every 4 Medica l 50-325-40 (four) Branch mg per hours as capsule needed for Pain. butalbital- 2021-07 Yes [id number] 1{capsu Take 1 [facility] aspirin-caf 2-23 le} capsule by it y of feine 00:00: mouth [place] (FIORINAL) 00 every 4 Medica l 50-325-40 (four) Branch mg per hours as capsule needed for Pain. butalbital- 2021-07 Yes [id number] 1{capsu Take 1 [facility] aspirin-caf 2-23 le} capsule by it y of feine 00:00: mouth [place] (FIORINAL) 00 every 4 Medica l 50-325-40 (four) Branch mg per hours as capsule needed for Pain. butalbital- 2021-07 Yes [id number] 1{capsu Take 1 [facility] aspirin-caf 2-23 le} capsule by it y of feine 00:00: mouth [place] (FIORINAL) 00 every 4 Medica l 50-325-40 (four) Branch mg per hours as capsule needed for Pain. butalbital2021-07 Yes [id number] 1{capsu Take 1 [facility] aspirin-caf 2-23 le} capsule by it y of feine 00:00: mouth [place] (FIORINAL) 00 every 4 Medica l 50-325-40 (four) Branch mg per hours as capsule needed for Pain. butalbital2021-07 Yes [id number] 1{capsu Take 1 [facility] aspirin-caf 2-23 le} capsule by it y of feine 00:00: mouth [place] (FIORINAL) 00 every 4 Medica l 50-325-40 (four) Branch mg per hours as capsule needed for Pain. butalbital2021-07 Yes [id number] 1{capsu Take 1 [facility] aspirin-caf 2-23 le} capsule by it y of feine 00:00: mouth [place] (FIORINAL) 00 every 4 Medica l 50-325-40 (four) Branch mg per hours as capsule needed for Pain. butalbital2021-07 Yes [id number] 1{capsu Take 1 [facility] aspirin-caf 2-23 le} capsule by it y of feine 00:00: mouth [place] (FIORINAL) 00 every 4 Medica l 50-325-40 (four) Branch mg per hours as capsule needed for Pain. butalbital2021-07 Yes [id number] 1{capsu Take 1 [facility] aspirin-caf 2-23 le} capsule by it y of feine 00:00: mouth [place] (FIORINAL) 00 every 4 Medica l 50-325-40 (four) Branch mg per hours as capsule needed for Pain. butalbital- 2021-07 Yes [id number] 1{capsu Take 1 [facility] aspirin-caf 2-23 le} capsule by it y of feine 00:00: mouth [place] (FIORINAL) 00 every 4 Medica l 50-325-40 (four) Branch mg per hours as capsule needed for Pain. albital- 2021-07 Yes [id number] 1{capsu Take 1 [facility] aspirin-caf 2-23 le} capsule by it y of feine 00:00: mouth [place] (FIORINAL) 00 every 4 Medica l 50-325-40 (four) Branch mg per hours as capsule needed for Pain. albital2021-07 Yes [id number] 1{capsu Take 1 [facility] aspirin-caf 2-23 le} capsule by it y of feine 00:00: mouth [place] (FIORINAL) 00 every 4 Medica l 50-325-40 (four) Branch mg per hours as capsule needed for Pain. albital2021-07 Yes [id number] 1{capsu Take 1 [facility] aspirin-caf 2-23 le} capsule by it y of feine 00:00: mouth [place] (FIORINAL) 00 every 4 Medica l 50-325-40 (four) Branch mg per hours as capsule needed for Pain. butalbital2021-07 Yes [id number] 1{capsu Take 1 [facility] aspirin-caf 2-23 le} capsule by it y of feine 00:00: mouth [place] (FIORINAL) 00 every 4 Medica l 50-325-40 (four) Branch mg per hours as capsule needed for Pain. butbital2021-07 Yes [id number] 1{capsu Take 1 [facility] aspirin-caf 2-23 le} capsule by it y of feine 00:00: mouth [place] (FIORINAL) 00 every 4 Medica l 50-325-40 (four) Branch mg per hours as capsule needed for Pain. butalbital2021-07 Yes [id number] 1{capsu Take 1 [facility] aspirin-caf 2-23 le} capsule by it y of feine 00:00: mouth [place] (FIORINAL) 00 every 4 Medica l 50-325-40 (four) Branch mg per hours as capsule needed for Pain. butalbital2021-07 Yes [id number] 1{capsu Take 1 [facility] aspirin-caf 2-23 le} capsule by it y of feine 00:00: mouth [place] (FIORINAL) 00 every 4 Medica l 50-325-40 (four) Branch mg per hours as capsule needed for Pain. albital2021-07 Yes [id number] 1{capsu Take 1 [facility] aspirin-caf 2-23 le} capsule by it y of feine 00:00: mouth [place] (FIORINAL) 00 every 4 Medica l 50-325-40 (four) Branch mg per hours as capsule needed for Pain. butalbital2021-07 Yes [id number] 1{capsu Take 1 [facility] aspirin-caf 2-23 le} capsule by it y of feine 00:00: mouth [place] (FIORINAL) 00 every 4 Medica l 50-325-40 (four) Branch mg per hours as capsule needed for Pain. albital2021-07 Yes [id number] 1{capsu Take 1 [facility] aspirin-caf 2-23 le} capsule by it y of feine 00:00: mouth [place] (FIORINAL) 00 every 4 Medica l 50-325-40 (four) Branch mg per hours as capsule needed for Pain. butalbital2021-07 Yes [id number] 1{capsu Take 1 [facility] aspirin-caf 2-23 le} capsule by it y of feine 00:00: mouth [place] (FIORINAL) 00 every 4 Medica l 50-325-40 (four) Branch mg per hours as capsule needed for Pain. butalbital2021-07 Yes [id number] 1{capsu Take 1 [facility] aspirin-caf 2-23 le} capsule by it y of feine 00:00: mouth [place] (FIORINAL) 00 every 4 Medica l 50-325-40 (four) Branch mg per hours as capsule needed for Pain. butalbital2021-07 Yes [id number] 1{capsu Take 1 [facility] aspirin-caf 2-23 le} capsule by it y of feine 00:00: mouth [place] (FIORINAL) 00 every 4 Medica l 50-325-40 (four) Branch mg per hours as capsule needed for Pain. butalbital2021-07 Yes [id number] 1{capsu Take 1 [facility] aspirin-caf 2-23 le} capsule by it y of feine 00:00: mouth [place] (FIORINAL) 00 every 4 Medica l 50-325-40 (four) Branch mg per hours as capsule needed for Pain. butalbital- 2021-07 Yes [id number] 1{capsu Take 1 [facility] aspirin-caf 2-23 le} capsule by it y of feine 00:00: mouth [place] (FIORINAL) 00 every 4 Medica l 50-325-40 (four) Branch mg per hours as capsule needed for Pain. butalbital- 2021-07 Yes [id number] 1{capsu Take 1 [facility] aspirin-caf 2-23 le} capsule by it y of feine 00:00: mouth [place] (FIORINAL) 00 every 4 Medica l 50-325-40 (four) Branch mg per hours as capsule needed for Pain. albital2021-07 Yes [id number] 1{capsu Take 1 [facility] aspirin-caf 2-23 le} capsule by it y of feine 00:00: mouth [place] (FIORINAL) 00 every 4 Medica l 50-325-40 (four) Branch mg per hours as capsule needed for Pain. butalbital2021-07 Yes [id number] 1{capsu Take 1 [facility] aspirin-caf 2-23 le} capsule by it y of feine 00:00: mouth [place] (FIORINAL) 00 every 4 Medica l 50-325-40 (four) Branch mg per hours as capsule needed for Pain. butalbital2021-07 Yes [id number] 1{capsu Take 1 [facility] aspirin-caf 2-23 le} capsule by it y of feine 00:00: mouth [place] (FIORINAL) 00 every 4 Medica l 50-325-40 (four) Branch mg per hours as capsule needed for Pain. butalbital2021-07 Yes [id number] 1{capsu Take 1 [facility] aspirin-caf 2-23 le} capsule by it y of feine 00:00: mouth [place] (FIORINAL) 00 every 4 Medica l 50-325-40 (four) Branch mg per hours as capsule needed for Pain. butalbital2021-07 Yes [id number] 1{capsu Take 1 [facility] aspirin-caf 2-23 le} capsule by it y of feine 00:00: mouth [place] (FIORINAL) 00 every 4 Medica l 50-325-40 (four) Branch mg per hours as capsule needed for Pain. albital2021-07 Yes [id number] 1{capsu Take 1 [facility] aspirin-caf 2-23 le} capsule by it y of feine 00:00: mouth [place] (FIORINAL) 00 every 4 Medica l 50-325-40 (four) Branch mg per hours as capsule needed for Pain. bital- 2021-07 Yes [id number] 1{capsu Take 1 [facility] aspirin-caf 2-23 le} capsule by it y of feine 00:00: mouth [place] (FIORINAL) 00 every 4 Medica l 50-325-40 (four) Branch mg per hours as capsule needed for Pain. bital2021-07 Yes [id number] 1{capsu Take 1 [facility] aspirin-caf 2-23 le} capsule by it y of feine 00:00: mouth [place] (FIORINAL) 00 every 4 Medica l 50-325-40 (four) Branch mg per hours as capsule needed for Pain. butalbital2021-07 Yes [id number] 1{capsu Take 1 [facility] aspirin-caf 2-23 le} capsule by [facility] y of feine 00:00: mouth [place] (FIORINAL) 00 every 4 Medica l 50-325-40 (four) Branch mg per hours as capsule needed for Pain. butbital2021-07 Yes [id number] 1{capsu Take 1 [facility] aspirin-caf 2-23 le} capsule by it y of feine 00:00: mouth [place] (FIORINAL) 00 every 4 Medica l 50-325-40 (four) Branch mg per hours as capsule needed for Pain. butalbital2021-07 Yes [id number] 1{capsu Take 1 [facility] aspirin-caf 2-23 le} capsule by it y of feine 00:00: mouth [place] (FIORINAL) 00 every 4 Medica l 50-325-40 (four) Branch mg per hours as capsule needed for Pain. butalbital2021-07 Yes [id number] 1{capsu Take 1 [facility] aspirin-caf 2-23 le} capsule by it y of feine 00:00: mouth [place] (FIORINAL) 00 every 4 Medica l 50-325-40 (four) Branch mg per hours as capsule needed for Pain. butalbital- 2021-07 Yes [id number] 1{capsu Take 1 [facility] aspirin-caf 2-23 le} capsule by it y of feine 00:00: mouth [place] (FIORINAL) 00 every 4 Medica l 50-325-40 (four) Branch mg per hours as capsule needed for Pain. butalbital2021-07 Yes [id number] 1{capsu Take 1 [facility] aspirin-caf 2-23 le} capsule by it y of feine 00:00: mouth [place] (FIORINAL) 00 every 4 Medica l 50-325-40 (four) Branch mg per hours as capsule needed for Pain. albital2021-07 Yes [id number] 1{capsu Take 1 [facility] aspirin-caf 2-23 le} capsule by it y of feine 00:00: mouth [place] (FIORINAL) 00 every 4 Medica l 50-325-40 (four) Branch mg per hours as capsule needed for Pain. butbital2021-07 Yes [id number] 1{capsu Take 1 [facility] aspirin-caf 2-23 le} capsule by it y of feine 00:00: mouth [place] (FIORINAL) 00 every 4 Medica l 50-325-40 (four) Branch mg per hours as capsule needed for Pain. butalbital2021-07 Yes [id number] 1{capsu Take 1 [facility] aspirin-caf 2-23 le} capsule by it y of feine 00:00: mouth [place] (FIORINAL) 00 every 4 Medica l 50-325-40 (four) Branch mg per hours as capsule needed for Pain. butalbital2021-07 Yes [id number] 1{capsu Take 1 [facility] aspirin-caf 2-23 le} capsule by it y of feine 00:00: mouth [place] (FIORINAL) 00 every 4 Medica l 50-325-40 (four) Branch mg per hours as capsule needed for Pain. butalbital2021-07 Yes [id number] 1{capsu Take 1 [facility] aspirin-caf 2-23 le} capsule by it y of feine 00:00: mouth [place] (FIORINAL) 00 every 4 Medica l 50-325-40 (four) Branch mg per hours as capsule needed for Pain. butalbital- 2021-07 Yes [id number] 1{capsu Take 1 [facility] aspirin-caf 2-23 le} capsule by [facility] y of feine 00:00: mouth [place] (FIORINAL) 00 every 4 Medica l 50-325-40 (four) Branch mg per hours as capsule needed for Pain. butalbital- 2021-07 Yes [id number] 1{capsu Take 1 [facility] aspirin-caf 2-23 le} capsule by it y of feine 00:00: mouth [place] (FIORINAL) 00 every 4 Medica l 50-325-40 (four) Branch mg per hours as capsule needed for Pain. meloxicam 2021-07 Yes 7.5mg Take 1 [facility] 7.5 mg 2-20 tablet by [facility]y of tablet 00:00: mouth in [place] the Medical morning. Branch meloxicam 2021-07 Yes 7.5mg Take 1 [facility] rs 7.5 mg 2-20 tablet by ity of tablet 00:00: mouth in [place] the Medical morning. Branch meloxicam 2021-07 Yes 7.5mg Take 1 [facility] rs 7.5 mg 2-20 tablet by ity of tablet 00:00: mouth in [place] the morning. Branch meloxicam 2021-07 Yes 7.5mg Take 1 [facility] rs 7.5 mg 2-20 tablet by ity of tablet 00:00: mouth in [place] the Medical morning. Branch meloxicam 2021-07 Yes 7.5mg Take 1 [facility] rs 7.5 mg 2-20 tablet by ity of tablet 00:00: mouth in [place] the Medical morning. Branch meloxicam 2021-07 Yes 7.5mg Take 1 [facility] rs 7.5 mg 2-20 tablet by [facility]y of tablet 00:00: mouth in [place] the morning. Branch meloxicam 2021-07 Yes 7.5mg Take 1 [facility] rs 7.5 mg 2-20 tablet by [facility]y of tablet 00:00: mouth in [place] the Medical morning. Branch meloxicam 2021-07 Yes 7.5mg Take 1 [facility] rs 7.5 mg 2-20 tablet by [facility]y of tablet 00:00: mouth in [place] the Medical morning. Branch meloxicam 2021-07 Yes 7.5mg Take 7.5 [facility] vers 7.5 mg 2-20 mg by ity of tablet 00:00: mouth in [place] the Medical morning. Branch meloxicam 2021-07 Yes 7.5mg Take 7.5 [facility] vers 7.5 mg 2-20 mg by ity of tablet 00:00: mouth in [place] the Medical morning. Branch meloxicam 2021-07 Yes 7.5mg Take 7.5 [facility] vers 7.5 mg 2-20 mg by ity of tablet 00:00: mouth in [place] the Medical morning. Branch meloxicam 2021-07 Yes 7.5mg Take 7.5 [facility] vers 7.5 mg 2-20 mg by ity of tablet 00:00: mouth in [place] the Medical morning. Branch meloxicam 2021-07 Yes 7.5mg Take 7.5 [facility] vers 7.5 mg 2-20 mg by ity of tablet 00:00: mouth in [place] the Medical morning. Branch meloxicam 2021-07 Yes 7.5mg Take 7.5 [facility] vers 7.5 mg 2-20 mg by [facility]y of tablet 00:00: mouth in [place] the Medical morning. Branch meloxicam 2021-07 Yes 7.5mg Take 7.5 [facility] vers 7.5 mg 2-20 mg by [facility]y of tablet 00:00: mouth in [place] the Medical morning. Branch meloxicam 2021-07 Yes 7.5mg Take 7.5 [facility] vers 7.5 mg 2-20 mg by [facility]y of tablet 00:00: mouth in [place] the Medical morning. Branch meloxicam 2021-07 Yes 7.5mg Take 7.5 [facility] vers 7.5 mg 2-20 mg by ity of tablet 00:00: mouth in [place] the Medical morning. Branch meloxicam 2021-07 Yes 7.5mg Take 7.5 [facility] vers 7.5 mg 2-20 mg by [facility] of tablet 00:00: mouth in [place] the Medical morning. Branch meloxicam 2021-07 Yes 7.5mg Take 7.5 [facility] vers 7.5 mg 2-20 mg by [facility]y of tablet 00:00: mouth in [place] the Medical morning. Branch meloxicam 2021-07 Yes 7.5mg Take 7.5 [facility] vers 7.5 mg 2-20 mg by [facility]y of tablet 00:00: mouth in [place] the Medical morning. Branch meloxicam 2021-07 Yes 7.5mg Take 7.5 [facility] vers 7.5 mg 2-20 mg by [facility]y of tablet 00:00: mouth in [place] the Medical morning. Branch meloxicam 2021-07 Yes 7.5mg Take 7.5 [facility] vers 7.5 mg 2-20 mg by [facility]y of tablet 00:00: mouth in [place] the Medical morning. Branch meloxicam 2021-07 Yes 7.5mg Take 7.5 [facility] vers 7.5 mg 2-20 mg by ity of tablet 00:00: mouth in [place] the Medical morning. Branch meloxicam 2021-07 Yes 7.5mg Take 7.5 [facility] vers 7.5 mg 2-20 mg by [facility]y of tablet 00:00: mouth in [place] the Medical morning. Branch meloxicam 2021-07 Yes 7.5mg Take 7.5 [facility] vers 7.5 mg 2-20 mg by [facility]y of tablet 00:00: mouth in [place] the Medical morning. Branch meloxicam 2021-07 Yes 7.5mg Take 7.5 [facility] vers 7.5 mg 2-20 mg by [facility]y of tablet 00:00: mouth in [place] the Medical morning. Branch meloxicam 2021-07 Yes 7.5mg Take 7.5 [facility] vers 7.5 mg 2-20 mg by [facility]y of tablet 00:00: mouth in [place] the Medical morning. Branch meloxicam 2021-07 Yes 7.5mg Take 7.5 [facility] vers 7.5 mg 2-20 mg by ity of tablet 00:00: mouth in [place] the Medical morning. Branch meloxicam 2021-07 Yes 7.5mg Take 1 [facility] rs 7.5 mg 2-20 tablet by [facility] of tablet 00:00: mouth in [place] the Medical morning. Branch meloxicam 2021-07 Yes 7.5mg Take 1 [facility] rs 7.5 mg 2-20 tablet by [facility] of tablet 00:00: mouth in [place] the Medical morning. Branch meloxicam 2021-07 Yes 7.5mg Take 1 [facility] rs 7.5 mg 2-20 tablet by [facility] of tablet 00:00: mouth in [place] the Medical morning. Branch meloxicam 2021-07 Yes 7.5mg Take 1 [facility] rs 7.5 mg 2-20 tablet by [facility] of tablet 00:00: mouth in [place] the Medical morning. Branch meloxicam 2021-07 Yes 7.5mg Take 1 [facility] rs 7.5 mg 2-20 tablet by [facility] of tablet 00:00: mouth in [place] the Medical morning. Branch meloxicam 2021-07 Yes 7.5mg Take 1 [facility] rs 7.5 mg 2-20 tablet by [facility] of tablet 00:00: mouth in [place] the Medical morning. Branch meloxicam 2021-07 Yes 7.5mg Take 1 [facility] rs 7.5 mg 2-20 tablet by [facility] of tablet 00:00: mouth in [place] the Medical morning. Branch meloxicam 2021-07 Yes 7.5mg Take 1 [facility] rs 7.5 mg 2-20 tablet by [facility] of tablet 00:00: mouth in [place] the Medical morning. Branch meloxicam 2021-07 Yes 7.5mg Take 1 [facility] rs 7.5 mg 2-20 tablet by [facility] of tablet 00:00: mouth in [place] the Medical morning. Branch meloxicam 2021-07 Yes 7.5mg Take 1 [facility] rs 7.5 mg 2-20 tablet by [facility] of tablet 00:00: mouth in [place] the Medical morning. Branch meloxicam 2021-07 Yes 7.5mg Take 1 [facility] rs 7.5 mg 2-20 tablet by [facility] of tablet 00:00: mouth in [place] the Medical morning. Branch meloxicam 2021-07 Yes 7.5mg Take 1 [facility] rs 7.5 mg 2-20 tablet by [facility] of tablet 00:00: mouth in [place] the Medical morning. Branch meloxicam 2021-07 Yes 7.5mg Take 1 [facility] rs 7.5 mg 2-20 tablet by [facility] of tablet 00:00: mouth in [place] the Medical morning. Branch meloxicam 2021-07 Yes 7.5mg Take 1 [facility] rs 7.5 mg 2-20 tablet by [facility] of tablet 00:00: mouth in [place] the Medical morning. Branch meloxicam 2021-07 Yes 7.5mg Take 1 [facility] rs 7.5 mg 2-20 tablet by [facility] of tablet 00:00: mouth in [place] 00 the Medical morning. Branch meloxicam 2021-07 Yes 7.5mg Take 1 [facility] rs 7.5 mg 2-20 tablet by [facility] of tablet 00:00: mouth in [place] 00 the Medical morning. Branch meloxicam 2021-07 Yes 7.5mg Take 1 [facility] rs 7.5 mg 2-20 tablet by [facility] of tablet 00:00: mouth in [place] 00 the Medical morning. Branch orphenadrin 2021-07 Yes TAKE 1 [facility] ers e 100 mg SR 2-16 TABLET BY [facility]y of tablet 00:00: MOUTH [place] 00 TWICE Medical DAILY Branch NEEDED orphenadrin 2021- Yes TAKE 1 [facility] ers e 100 mg SR 2-16 TABLET BY ity of tablet 00:00: MOUTH [place] 00 TWICE Medical DAILY Branch NEEDED orphenadrin 2021- Yes TAKE 1 [facility] ers e 100 mg SR 2-16 TABLET BY ity of tablet 00:00: MOUTH [place] 00 TWICE Medical DAILY Branch NEEDED orphenadrin 2021- Yes TAKE 1 [facility] ers e 100 mg SR 2-16 TABLET BY ity of tablet 00:00: MOUTH [place] 00 TWICE Medical DAILY Branch NEEDED orphenadrin 2021- Yes TAKE 1 [facility] ers e 100 mg SR 2-16 TABLET BY ity of tablet 00:00: MOUTH [place] 00 TWICE Medical DAILY Branch NEEDED orphenadrin 2021- Yes TAKE 1 [facility] ers e 100 mg SR 2-16 TABLET BY ity of tablet 00:00: MOUTH [place] 00 TWICE Medical DAILY Branch NEEDED orphenadrin 2021- Yes TAKE 1 [facility] ers e 100 mg SR 2-16 TABLET BY ity of tablet 00:00: MOUTH [place] 00 TWICE Medical DAILY Branch NEEDED orphenadrin 2021- Yes TAKE 1 [facility] ers [facility] 100 mg SR 2-16 TABLET BY ity of tablet 00:00: MOUTH [place] 00 TWICE Medical DAILY Branch NEEDED orphenadrin 2021- Yes TAKE 1 [facility] ers e 100 mg SR 2-16 TABLET BY ity of tablet 00:00: MOUTH [place] 00 TWICE Medical DAILY Branch NEEDED orphenadrin [...] TABLET BY ity of tablet 00:00: MOUTH [place] 00 TWICE Medical DAILY Branch NEEDED orphenadrin 2021-07 Yes TAKE 1 [facility] ers [facility] 100 mg SR 2-16 TABLET BY ity of tablet 00:00: MOUTH [place] 00 TWICE Medical DAILY Branch NEEDED orphenadrin 2021-07 Yes TAKE 1 [facility] ers [facility] 100 mg SR 2-16 TABLET BY ity of tablet 00:00: MOUTH [place] 00 TWICE Medical DAILY Branch NEEDED orphenadrin 2021-07 Yes TAKE 1 [facility] 100 mg SR 2-16 TABLET BY ity of tablet 00:00: MOUTH [place] 00 TWICE Medical DAILY Branch NEEDED orphenadrin 2021-07 Yes TAKE 1 [facility] ers [facility] 100 mg SR 2-16 TABLET BY [facility]y of tablet 00:00: MOUTH [place] 00 TWICE Medical DAILY Branch NEEDED zolpidem 10 2021-07 Yes [id number] 10mg Take 1 [facility] mg tablet 1-22 tablet by ity o f 00:00: mouth at [place] 00 bedtime as Medical needed for Branch Insomnia. HYDROcodone 2021-07 Yes [id number] 1{tbl} Take 1 [facility] -acetaminop 1-22 tablet by [facility] of hen 5-325 00:00: mouth [place] mg tablet 00 every 6 Medical (six) Branch hours as needed for Pain (scale 4-6). Indication s: chronic pain zolpidem 10 2021-07 Yes [id number] 10mg Take 1 [facility] mg tablet 1-22 [...] Indication s: chronic pain zolpidem 2021-07 Yes [id number] 10mg Take 1 [facility] mg tablet 1-22 [...] Indication s: chronic pain zolpidem 2021-07 Yes [id number] 10mg Take 1 [facility] mg tablet 1-22 [...] Indication s: chronic pain zolpidem 2021-07 Yes [id number] 10mg Take 1 [facility] mg tablet 1-22 [...] Indication s: chronic pain zolpidem 2021-07 Yes [id number] 10mg Take 1 [facility] mg tablet 1-22 [...] Indication s: chronic pain zolpidem 2021-07 Yes [id number] 10mg Take 1 [facility] mg tablet 1-22 tablet by ity o f 00:00: mouth at [place] 00 bedtime as Medical needed for Branch Insomnia. zolpidem 2021-07 Yes [id number] 10mg Take 1 [facility] mg tablet 1-22 tablet by ity o f 00:00: mouth at [place] 00 bedtime as Medical needed for Branch Insomnia. zolpidem 2021-07 Yes [id number] 10mg Take 1 [facility] mg tablet 1-22 tablet by ity o f 00:00: mouth at [place] 00 bedtime as Medical needed for Branch Insomnia. zolpidem 2021-07 Yes [id number] 10mg Take 1 [facility] mg tablet 1-22 tablet by ity o f 00:00: mouth at [place] 00 bedtime as Medical needed for Branch Insomnia. zolpidem 2021-07 Yes [id number] 10mg Take 1 [facility] mg tablet 1-22 tablet by ity o f 00:00: mouth at [place] 00 bedtime as Medical needed for Branch Insomnia. zolpidem 2021-07 Yes [id number] 10mg Take 1 [facility] mg tablet 1-22 tablet by ity o f 00:00: mouth at [place] 00 bedtime as Medical needed for Branch Insomnia. zolpidem 2021-07 Yes [id number] 10mg Take 1 [facility] mg tablet 1-22 tablet by ity o f 00:00: mouth at [place] 00 bedtime as Medical needed for Branch Insomnia. zolpidem 2021-07 Yes [id number] 10mg Take 1 [facility] mg tablet 1-22 tablet by ity o f 00:00: mouth at [place] 00 bedtime as Medical needed for Branch Insomnia. zolpidem 2021-07 Yes [id number] 10mg Take 1 [facility] mg tablet 1-22 tablet by ity o f 00:00: mouth at [place] 00 bedtime as Medical needed for Branch Insomnia. zolpidem 2021-07 Yes [id number] 10mg Take 1 [facility] mg tablet 1-22 tablet by ity o f 00:00: mouth at [place] 00 bedtime as Medical needed for Branch Insomnia. zolpidem 2021-07 Yes [id number] 10mg Take 1 [facility] mg tablet 1-22 tablet by ity o f 00:00: mouth at [place] 00 bedtime as Medical needed for Branch Insomnia. zolpidem 2021-07 Yes [id number] 10mg Take 1 [facility] mg tablet 1-22 tablet by ity o f 00:00: mouth at [place] 00 bedtime as Medical needed for Branch Insomnia. zolpidem 2021-07 Yes [id number] 10mg Take 1 [facility] mg tablet 1-22 tablet by ity o f 00:00: mouth at [place] 00 bedtime as Medical needed for Branch Insomnia. zolpidem 2021-07 Yes [id number] 10mg Take 1 [facility] mg tablet 1-22 tablet by ity o f 00:00: mouth at [place] 00 bedtime as Medical needed for Branch Insomnia. zolpidem 2021-07 Yes [id number] 10mg Take 1 [facility] mg tablet 1-22 tablet by ity o f 00:00: mouth at [place] 00 bedtime as Medical needed for Branch Insomnia. zolpidem 2021-07 Yes [id number] 10mg Take 1 [facility] mg tablet 1-22 tablet by ity o f 00:00: mouth at [place] 00 bedtime as Medical needed for Branch Insomnia. zolpidem 2021-07 Yes [id number] 10mg Take 1 [facility] mg tablet 1-22 tablet by ity o f 00:00: mouth at [place] 00 bedtime as Medical needed for Branch Insomnia. zolpidem 2021-07 Yes [id number] 10mg Take 1 [facility] mg tablet 1-22 tablet by ity o f 00:00: mouth at [place] 00 bedtime as Medical needed for Branch Insomnia. zolpidem 2021-07 Yes [id number] 10mg Take 1 [facility] mg tablet 1-22 tablet by ity o f 00:00: mouth at [place] 00 bedtime as Medical needed for Branch Insomnia. zolpidem 2021-07 Yes [id number] 10mg Take 1 [facility] mg tablet 1-22 tablet by ity o f 00:00: mouth at [place] 00 bedtime as Medical needed for Branch Insomnia. zolpidem 2021-07 Yes [id number] 10mg Take 1 [facility] mg tablet 1-22 tablet by ity o f 00:00: mouth at [place] 00 bedtime as Medical needed for Branch Insomnia. zolpidem 2021-07 Yes [id number] 10mg Take 1 [facility] mg tablet 1-22 tablet by ity o f 00:00: mouth at [place] 00 bedtime as Medical needed for Branch Insomnia. zolpidem 2021-07 Yes [id number] 10mg Take 1 [facility] mg tablet 1-22 tablet by ity o f 00:00: mouth at [place] 00 bedtime as Medical needed for Branch Insomnia. zolpidem 2021-07 Yes [id number] 10mg Take 1 [facility] mg tablet 1-22 tablet by ity o f 00:00: mouth at [place] 00 bedtime as Medical needed for Branch Insomnia. zolpidem 2021-07 Yes [id number] 10mg Take 1 [facility] mg tablet 1-22 tablet by ity o f 00:00: mouth at [place] 00 bedtime as Medical needed for Branch Insomnia. zolpidem 2021-07 Yes [id number] 10mg Take 1 [facility] mg tablet 1-22 tablet by ity o f 00:00: mouth at [place] 00 bedtime as Medical needed for Branch Insomnia. zolpidem 2021-07- No [id number] 10mg Take 1 [facility] mg tablet 1-22 [...] Indication s: chronic pain propranoloL 2021-07 Yes [id number] 10mg Take 1 [facility] 10 mg 0-27 9105 tablet by [facility] of tablet 00:00: mouth in [place] 00 the Medical morning Branch and 1 tablet in the evening. zolpidem 2021-07 Yes [id number] 10mg Take 1 [facility] mg tablet 0-27 tablet by ity o f 00:00: mouth at [place] 00 bedtime as Medical needed for Branch Insomnia. nebivoloL 2021-07 Yes [id number] 10mg Take 1 [facility] 10 mg 0-27 tablet by [facility] of tablet 00:00: mouth in [place] 00 the Medical morning. Branch hydroCHLORO 2021-07 Yes [id number] 12.5mg Take 1 [facility] thiazide 0-27 tablet by ity of 12.5 mg 00:00: mouth [place] tablet 00 every Medical morning. Branch azithromyci 2021-07 Yes [id number] 250mg Z-Romel = [facility] n 250 mg 0-27 500 mg day ity o f tablet 00:00: 1, then [place] 00 250 mg Medical days 2 to Branch 5. Take 500 mg day 1, then 250 mg days 2 to 5. propranoloL 2021-07 Yes [id number] 10mg Take 1 [facility] 10 mg 0-27 9105 tablet by [facility]y of tablet 00:00: mouth in [place] 00 the Medical morning Branch and 1 tablet in the evening. zolpidem 10 2021-07 Yes [id number] 10mg Take 1 [facility] mg tablet 0-27 tablet by ity o f 00:00: mouth at [place] 00 bedtime as Medical needed for Branch Insomnia. nebivoloL 2021-07 Yes [id number] 10mg Take 1 [facility] 10 mg 0-27 tablet by [facility] of tablet 00:00: mouth in [place] 00 the Medical morning. Branch hydroCHLORO 2021-07 Yes [id number] 12.5mg Take 1 [facility] thiazide 0-27 tablet by ity of 12.5 mg 00:00: mouth [place] tablet 00 every Medical morning. Branch azithromyci 2021-07 Yes [id number] 250mg Z-Romel = [facility] n 250 mg [...] Indication s: chronic pain propranoloL 2021-07 Yes [id number] 10mg Take 1 [facility] 10 mg 0-27 9105 tablet by [facility]y of tablet 00:00: mouth in [place] 00 the Medical morning Branch and 1 tablet in the evening. zolpidem 10 2021-07 Yes [id number] 10mg Take 1 [facility] mg tablet 0-27 tablet by ity o f 00:00: mouth at [place] 00 bedtime as Medical needed for Branch Insomnia. nebivoloL 2021-07 Yes [id number] 10mg Take 1 [facility] 10 mg 0-27 tablet by [facility] of tablet 00:00: mouth in [place] 00 the Medical morning. Branch hydroCHLORO 2021-07 Yes [id number] 12.5mg Take 1 [facility] thiazide 0-27 tablet by ity of 12.5 mg 00:00: mouth [place] tablet 00 every Medical morning. Branch azithromyci 2021-07 Yes [id number] 250mg Z-Romel = [facility] n 250 mg 0-27 500 mg day ity o f tablet 00:00: 1, then [place] 00 250 mg Medical days 2 to Branch 5. Take 500 mg day 1, then 250 mg days 2 to 5. propranoloL 2021-07 Yes [id number] 10mg Take 1 [facility] 10 mg 0-27 9105 tablet by [facility] of tablet 00:00: mouth in [place] 00 the Medical morning Branch and 1 tablet in the evening. zolpidem 10 2021-07 Yes [id number] 10mg Take 1 [facility] mg tablet 0-27 tablet by ity o f 00:00: mouth at [place] 00 bedtime as Medical needed for Branch Insomnia. nebivoloL 2021-07 Yes [id number] 10mg Take 1 [facility] 10 mg 0-27 tablet by [facility] of tablet 00:00: mouth in [place] 00 the Medical morning. Branch hydroCHLORO 2021-07 Yes [id number] 12.5mg Take 1 [facility] thiazide 0-27 tablet by ity of 12.5 mg 00:00: mouth [place] tablet 00 every Medical morning. Branch azithromyci 2021-07 Yes [id number] 250mg Z-Romel = [facility] n 250 mg 0-27 500 mg day ity o f tablet 00:00: 1, then [place] 00 250 mg Medical days 2 to Branch 5. Take 500 mg day 1, then 250 mg days 2 to 5. propranoloL 2021-07 Yes [id number] 10mg Take 1 [facility] 10 mg 0-27 9105 tablet by [facility] of tablet 00:00: mouth in [place] 00 the Medical morning Branch and 1 tablet in the evening. nebivoloL 2021-07 Yes [id number] 10mg Take 1 [facility] 10 mg 0-27 tablet by [facility] of tablet 00:00: mouth in [place] 00 the Medical morning. Branch hydroCHLORO 2021-07 Yes [id number] 12.5mg Take 1 [facility] thiazide 0-27 tablet by ity of 12.5 mg 00:00: mouth [place] tablet 00 every Medical morning. Branch azithromyci 2021-07 Yes [id number] 250mg Z-Romel = [facility] n 250 mg 0-27 500 mg day ity o f tablet 00:00: 1, then [place] 00 250 mg Medical days 2 to Branch 5. Take 500 mg day 1, then 250 mg days 2 to 5. propranoloL 2021-07 Yes [id number] 10mg Take 1 [facility] 10 mg 0-27 9105 tablet by [facility] of tablet 00:00: mouth in [place] 00 the Medical morning Branch and 1 tablet in the evening. nebivoloL 2021-07 Yes [id number] 10mg Take 1 [facility] 10 mg 0-27 tablet by [facility] of tablet 00:00: mouth in [place] 00 the Medical morning. Branch hydroCHLORO 2021-07 Yes [id number] 12.5mg Take 1 [facility] thiazide 0-27 tablet by [facility]y of 12.5 mg 00:00: mouth [place] tablet 00 every Medical morning. Branch azithromyci 2021-07 Yes [id number] 250mg Z-Romel = [facility] n 250 mg 0-27 500 mg day ity o f tablet 00:00: 1, then [place] 00 250 mg Medical days 2 to Branch 5. Take 500 mg day 1, then 250 mg days 2 to 5. propranoloL 2021-07 Yes [id number] 10mg Take 1 [facility] 10 mg 0-27 9105 tablet by [facility] of tablet 00:00: mouth in [place] 00 the Medical morning Branch and 1 tablet in the evening. nebivoloL 2021-07 Yes [id number] 10mg Take 1 [facility] 10 mg 0-27 tablet by [facility] of tablet 00:00: mouth in [place] 00 the Medical morning. Branch hydroCHLORO 2021-07 Yes [id number] 12.5mg Take 1 [facility] thiazide 0-27 tablet by ity of 12.5 mg 00:00: mouth [place] tablet 00 every Medical morning. Branch azithromyci 2021-07 Yes [id number] 250mg Z-Romel = [facility] n 250 mg 0-27 500 mg day it[facility] o f tablet 00:00: 1, then [place] 00 250 mg Medical days 2 to Branch 5. Take 500 mg day 1, then 250 mg days 2 to 5. propranoloL 2021-07 Yes [id number] 10mg Take 1 [facility] 10 mg 0-27 9105 tablet by [facility] of tablet 00:00: mouth in [place] 00 the Medical morning Branch and 1 tablet in the evening. nebivoloL 2021-07 Yes [id number] 10mg Take 1 [facility] 10 mg 0-27 tablet by [facility] of tablet 00:00: mouth in [place] 00 the Medical morning. Branch hydroCHLORO 2021-07 Yes [id number] 12.5mg Take 1 [facility] thiazide 0-27 tablet by ity of 12.5 mg 00:00: mouth [place] tablet 00 every Medical morning. Branch azithromyci 2021-07 Yes [id number] 250mg Z-Romel = [facility] n 250 mg 0-27 500 mg day ity o f tablet 00:00: 1, then [place] 00 250 mg Medical days 2 to Branch 5. Take 500 mg day 1, then 250 mg days 2 to 5. propranoloL 2021-07 Yes [id number] 10mg Take 1 [facility] 10 mg 0-27 9105 tablet by [facility] tablet 00:00: mouth in [place] the Medical morning Branch and 1 tablet in the evening. nebivoloL 2021-07 Yes [id number] 10mg Take 1 [facility] 10 mg 0-27 tablet by [facility] tablet 00:00: mouth in [place] 00 the Medical morning. Branch hydroCHLORO 2021-07 Yes [id number] 12.5mg Take 1 [facility] thiazide 0-27 tablet by [facility] of 12.5 mg 00:00: mouth [place] tablet 00 every Medical morning. Branch azithromyci 2021-07 Yes [id number] 250mg [facility] = [facility] 250 mg 0-27 500 mg day [facility] o f tablet 00:00: 1, then [place] 00 250 mg Medical days 2 to Branch 5. Take 500 mg day 1, then 250 mg days 2 to 5. propranoloL 2021-07 Yes [id number] 10mg Take 1 [facility] 10 mg 0-27 9105 tablet by [facility] of tablet 00:00: mouth in [place] 00 the Medical morning Branch and 1 tablet in the evening. nebivoloL 2021-07 Yes [id number] 10mg Take 1 [facility] 10 mg 0-27 tablet by [facility] of tablet 00:00: mouth in [place] 00 the Medical morning. Branch hydroCHLORO 2021-07 Yes [id number] 12.5mg Take 1 [facility] thiazide 0-27 tablet by [facility] of 12.5 mg 00:00: mouth [place] tablet 00 every Medical morning. Branch azithromyci 2021-07 Yes [id number] 250mg [facility] = [facility] 250 mg 0-27 500 mg day [facility] o f tablet 00:00: 1, then [place] 00 250 mg Medical days 2 to Branch 5. Take 500 mg day 1, then 250 mg days 2 to 5. propranoloL 2021-07 Yes [id number] 10mg Take 1 [facility] 10 mg 0-27 9105 tablet by [facility] of tablet 00:00: mouth in [place] 00 the Medical morning Branch and 1 tablet in the evening. nebivoloL 2021-07 Yes [id number] 10mg Take 1 [facility] 10 mg 0-27 tablet by [facility] tablet 00:00: mouth in [place] 00 the Medical morning. Branch hydroCHLORO 2021-07 Yes [id number] 12.5mg Take 1 [facility] thiazide 0-27 tablet by [facility] of 12.5 mg 00:00: mouth [place] tablet 00 every Medical morning. Branch azithromyci 2021-07 Yes [id number] 250mg [facility] = [facility] 250 mg 0-27 500 mg day [facility] o f tablet 00:00: 1, then [place] 00 250 mg Medical days 2 to Branch 5. Take 500 mg day 1, then 250 mg days 2 to 5. nebivoloL 2021-07 Yes [id number] 10mg Take 1 [facility] 10 mg 0-27 tablet by [facility] tablet 00:00: mouth in [place] 00 the Medical morning. Branch hydroCHLORO 2021-07 Yes [id number] 12.5mg Take 1 [facility] thiazide 0-27 tablet by [facility] of 12.5 mg 00:00: mouth [place] tablet 00 every Medical morning. Branch azithromyci 2021-07 Yes [id number] 250mg [facility] = [facility] 250 mg 0-27 500 mg day [facility] o f tablet 00:00: 1, then [place] 00 250 mg Medical days 2 to Branch 5. Take 500 mg day 1, then 250 mg days 2 to 5. nebivoloL 2021-07 Yes [id number] 10mg Take 1 [facility] 10 mg 0-27 tablet by [facility] tablet 00:00: mouth in [place] 00 the Medical morning. Branch hydroCHLORO 2021-07 Yes [id number] 12.5mg Take 1 [facility] thiazide 0-27 tablet by [facility] of 12.5 mg 00:00: mouth [place] tablet 00 every Medical morning. Branch azithromyci 2021-07 Yes [id number] 250mg [facility] = [facility] 250 mg 0-27 500 mg day [facility] o f tablet 00:00: 1, then [place] 00 250 mg Medical days 2 to Branch 5. Take 500 mg day 1, then 250 mg days 2 to 5. nebivoloL 2021-07 Yes [id number] 10mg Take 1 [facility] 10 mg 0-27 tablet by [facility] tablet 00:00: mouth in [place] 00 the Medical morning. Branch hydroCHLORO 2021-07 Yes [id number] 12.5mg Take 1 [facility] thiazide 0-27 tablet by [facility] of 12.5 mg 00:00: mouth [place] tablet 00 every Medical morning. Branch azithromyci 2021-07 Yes [id number] 250mg [facility] = [facility] 250 mg 0-27 500 mg day [facility] o f tablet 00:00: 1, then [place] 00 250 mg Medical days 2 to Branch 5. Take 500 mg day 1, then 250 mg days 2 to 5. nebivoloL 2021-07 Yes [id number] 10mg Take 1 [facility] 10 mg 0-27 tablet by [facility] tablet 00:00: mouth in [place] 00 the Medical morning. Branch hydroCHLORO 2021-07 Yes [id number] 12.5mg Take 1 [facility] thiazide 0-27 tablet by [facility] of 12.5 mg 00:00: mouth [place] tablet 00 every Medical morning. Branch azithromyci 2021-07 Yes [id number] 250mg [facility] = [facility] 250 mg 0-27 500 mg day [facility] o f tablet 00:00: 1, then [place] 00 250 mg Medical days 2 to Branch 5. Take 500 mg day 1, then 250 mg days 2 to 5. nebivoloL 2021-07 Yes [id number] 10mg Take 1 [facility] 10 mg 0-27 tablet by [facility] tablet 00:00: mouth in [place] 00 the Medical morning. Branch hydroCHLORO 2021-07 Yes [id number] 12.5mg Take 1 [facility] thiazide 0-27 tablet by [facility] of 12.5 mg 00:00: mouth [place] tablet 00 every Medical morning. Branch azithromyci 2021-07 Yes [id number] 250mg [facility] = [facility] 250 mg 0-27 500 mg day [facility] o f tablet 00:00: 1, then [place] 00 250 mg Medical days 2 to Branch 5. Take 500 mg day 1, then 250 mg days 2 to 5. nebivoloL 2021-07 Yes [id number] 10mg Take 1 [facility] 10 mg 0-27 tablet by [facility] tablet 00:00: mouth in [place] 00 the Medical morning. Branch hydroCHLORO 2021-07 Yes [id number] 12.5mg Take 1 [facility] thiazide 0-27 tablet by [facility] of 12.5 mg 00:00: mouth [place] tablet 00 every Medical morning. Branch azithromyci 2021-07 Yes [id number] 250mg [facility] = [facility] 250 mg 0-27 500 mg day [facility] o f tablet 00:00: 1, then [place] 00 250 mg Medical days 2 to Branch 5. Take 500 mg day 1, then 250 mg days 2 to 5. nebivoloL 2021-07 Yes [id number] 10mg Take 1 [facility] 10 mg 0-27 tablet by [facility] tablet 00:00: mouth in [place] 00 the Medical morning. Branch hydroCHLORO 2021-07 Yes [id number] 12.5mg Take 1 [facility] thiazide 0-27 tablet by [facility] of 12.5 mg 00:00: mouth [place] tablet 00 every Medical morning. Branch azithromyci 2021-07 Yes [id number] 250mg [facility] = [facility] 250 mg 0-27 500 mg day [facility] o f tablet 00:00: 1, then [place] 00 250 mg Medical days 2 to Branch 5. Take 500 mg day 1, then 250 mg days 2 to 5. nebivoloL 2021-07 Yes [id number] 10mg Take 1 [facility] 10 mg 0-27 tablet by [facility] tablet 00:00: mouth in [place] 00 the Medical morning. Branch hydroCHLORO 2021-07 Yes [id number] 12.5mg Take 1 [facility] thiazide 0-27 tablet by [facility] of 12.5 mg 00:00: mouth [place] tablet 00 every Medical morning. Branch azithromyci 2021-07 Yes [id number] 250mg [facility] = [facility] 250 mg 0-27 500 mg day [facility] o f tablet 00:00: 1, then [place] 00 250 mg Medical days 2 to Branch 5. Take 500 mg day 1, then 250 mg days 2 to 5. nebivoloL 2021-07 Yes [id number] 10mg Take 1 [facility] 10 mg 0-27 tablet by [facility] tablet 00:00: mouth in [place] 00 the Medical morning. Branch hydroCHLORO 2021-07 Yes [id number] 12.5mg Take 1 [facility] thiazide 0-27 tablet by [facility] of 12.5 mg 00:00: mouth [place] tablet 00 every Medical morning. Branch azithromyci 2021-07 Yes [id number] 250mg [facility] = [facility] 250 mg 0-27 500 mg day [facility] o f tablet 00:00: 1, then [place] 00 250 mg Medical days 2 to Branch 5. Take 500 mg day 1, then 250 mg days 2 to 5. nebivoloL 2021-07 Yes [id number] 10mg Take 1 [facility] 10 mg 0-27 tablet by [facility] tablet 00:00: mouth in [place] 00 the Medical morning. Branch hydroCHLORO 2021-07 Yes [id number] 12.5mg Take 1 [facility] thiazide 0-27 tablet by [facility] of 12.5 mg 00:00: mouth [place] tablet 00 every Medical morning. Branch azithromyci 2021-07 Yes [id number] 250mg [facility] = [facility] 250 mg 0-27 500 mg day [facility] o f tablet 00:00: 1, then [place] 00 250 mg Medical days 2 to Branch 5. Take 500 mg day 1, then 250 mg days 2 to 5. nebivoloL 2021-07 Yes [id number] 10mg Take 1 [facility] 10 mg 0-27 tablet by [facility] tablet 00:00: mouth in [place] 00 the Medical morning. Branch hydroCHLORO 2021-07 Yes [id number] 12.5mg Take 1 [facility] thiazide 0-27 tablet by [facility] of 12.5 mg 00:00: mouth [place] tablet 00 every Medical morning. Branch azithromyci 2021-07 Yes [id number] 250mg [facility] = [facility] 250 mg 0-27 500 mg day [facility] o f tablet 00:00: 1, then [place] 00 250 mg Medical days 2 to Branch 5. Take 500 mg day 1, then 250 mg days 2 to 5. nebivoloL 2021-07 Yes [id number] 10mg Take 1 [facility] 10 mg 0-27 tablet by [facility] tablet 00:00: mouth in [place] 00 the Medical morning. Branch hydroCHLORO 2021-07 Yes [id number] 12.5mg Take 1 [facility] thiazide 0-27 tablet by [facility] of 12.5 mg 00:00: mouth [place] tablet 00 every Medical morning. Branch azithromyci 2021-07 Yes [id number] 250mg [facility] = [facility] 250 mg 0-27 500 mg day [facility] o f tablet 00:00: 1, then [place] 00 250 mg Medical days 2 to Branch 5. Take 500 mg day 1, then 250 mg days 2 to 5. nebivoloL 2021-07 Yes [id number] 10mg Take 1 [facility] 10 mg 0-27 tablet by [facility] tablet 00:00: mouth in [place] 00 the Medical morning. Branch hydroCHLORO 2021-07 Yes [id number] 12.5mg Take 1 [facility] thiazide 0-27 tablet by [facility] of 12.5 mg 00:00: mouth [place] tablet 00 every Medical morning. Branch azithromyci 2021-07 Yes [id number] 250mg [facility] = [facility] 250 mg 0-27 500 mg day [facility] o f tablet 00:00: 1, then [place] 00 250 mg Medical days 2 to Branch 5. Take 500 mg day 1, then 250 mg days 2 to 5. nebivoloL 2021-07 Yes [id number] 10mg Take 1 [facility] 10 mg 0-27 tablet by [facility] tablet 00:00: mouth in [place] 00 the Medical morning. Branch hydroCHLORO 2021-07 Yes [id number] 12.5mg Take 1 [facility] thiazide 0-27 tablet by [facility] of 12.5 mg 00:00: mouth [place] tablet 00 every Medical morning. Branch azithromyci 2021-07 Yes [id number] 250mg [facility] = [facility] 250 mg 0-27 500 mg day [facility] o f tablet 00:00: 1, then [place] 00 250 mg Medical days 2 to Branch 5. Take 500 mg day 1, then 250 mg days 2 to 5. nebivoloL 2021-07 Yes [id number] 10mg Take 1 [facility] 10 mg 0-27 tablet by [facility] tablet 00:00: mouth in [place] 00 the Medical morning. Branch hydroCHLORO 2021-07 Yes [id number] 12.5mg Take 1 [facility] thiazide 0-27 tablet by [facility] of 12.5 mg 00:00: mouth [place] tablet 00 every Medical morning. Branch azithromyci 2021-07 Yes [id number] 250mg [facility] = [facility] 250 mg 0-27 500 mg day [facility] o f tablet 00:00: 1, then [place] 00 250 mg Medical days 2 to Branch 5. Take 500 mg day 1, then 250 mg days 2 to 5. nebivoloL 2021-07 Yes [id number] 10mg Take 1 [facility] 10 mg 0-27 tablet by [facility] tablet 00:00: mouth in [place] 00 the Medical morning. Branch hydroCHLORO 2021-07 Yes [id number] 12.5mg Take 1 [facility] thiazide 0-27 tablet by [facility] of 12.5 mg 00:00: mouth [place] tablet 00 every Medical morning. Branch azithromyci 2021-07 Yes [id number] 250mg [facility] = [facility] 250 mg 0-27 500 mg day [facility] o f tablet 00:00: 1, then [place] 00 250 mg Medical days 2 to Branch 5. Take 500 mg day 1, then 250 mg days 2 to 5. nebivoloL 2021-07 Yes [id number] 10mg Take 1 [facility] 10 mg 0-27 tablet by [facility] tablet 00:00: mouth in [place] 00 the Medical morning. Branch hydroCHLORO 2021-07 Yes [id number] 12.5mg Take 1 [facility] thiazide 0-27 tablet by [facility] of 12.5 mg 00:00: mouth [place] tablet 00 every Medical morning. Branch azithromyci 2021-07 Yes [id number] 250mg [facility] = [facility] 250 mg 0-27 500 mg day [facility] o f tablet 00:00: 1, then [place] 00 250 mg Medical days 2 to Branch 5. Take 500 mg day 1, then 250 mg days 2 to 5. nebivoloL 2021-07 Yes [id number] 10mg Take 1 [facility] 10 mg 0-27 tablet by [facility] tablet 00:00: mouth in [place] 00 the Medical morning. Branch hydroCHLORO 2021-07 Yes [id number] 12.5mg Take 1 [facility] thiazide 0-27 tablet by [facility] of 12.5 mg 00:00: mouth [place] tablet 00 every Medical morning. Branch azithromyci 2021-07 Yes [id number] 250mg Z-[facility] = [facility] 250 mg 0-27 500 mg day [facility] o f tablet 00:00: 1, then [place] 00 250 mg Medical days 2 to Branch 5. Take 500 mg day 1, then 250 mg days 2 to 5. nebivoloL 2021-07 Yes [id number] 10mg Take 1 [facility] 10 mg 0-27 tablet by [facility] tablet 00:00: mouth in [place] 00 the Medical morning. Branch hydroCHLORO 2021-07 Yes [id number] 12.5mg Take 1 [facility] thiazide 0-27 tablet by [facility] of 12.5 mg 00:00: mouth [place] tablet 00 every Medical morning. Branch azithromyci 2021-07 Yes [id number] 250mg Z-Rom[facility] = [facility] 250 mg 0-27 500 mg day [facility] o f tablet 00:00: 1, then [place] 00 250 mg Medical days 2 to Branch 5. Take 500 mg day 1, then 250 mg days 2 to 5. nebivoloL 2021-07 Yes [id number] 10mg Take 1 [facility] 10 mg 0-27 tablet by [facility] of tablet 00:00: mouth in [place] 00 the Medical morning. Branch hydroCHLORO 2021-07 Yes [id number] 12.5mg Take 1 [facility] thiazide 0-27 tablet by [facility] of 12.5 mg 00:00: mouth [place] tablet 00 every Medical morning. Branch azithromyci 2021-07 Yes [id number] 250mg Z-Rom[facility] = [facility] 250 mg 0-27 500 mg day it[facility] o f tablet 00:00: 1, then [place] 00 250 mg Medical days 2 to Branch 5. Take 500 mg day 1, then 250 mg days 2 to 5. nebivoloL 2021-07 Yes [id number] 10mg Take 1 [facility] 10 mg 0-27 tablet by [facility] tablet 00:00: mouth in [place] 00 the Medical morning. Branch hydroCHLORO 2021-07 Yes [id number] 12.5mg Take 1 [facility] thiazide 0-27 tablet by [facility] of 12.5 mg 00:00: mouth [place] tablet 00 every Medical morning. Branch azithromyci 2021-07 Yes [id number] 250mg [facility] = [facility] 250 mg 0-27 500 mg day it[facility] o f tablet 00:00: 1, then [place] 00 250 mg Medical days 2 to Branch 5. Take 500 mg day 1, then 250 mg days 2 to 5. nebivoloL 2021-07 Yes [id number] 10mg Take 1 [facility] 10 mg 0-27 tablet by [facility] of tablet 00:00: mouth in [place] 00 the Medical morning. Branch hydroCHLORO 2021-07 Yes [id number] 12.5mg Take 1 [facility] thiazide 0-27 tablet by [facility] of 12.5 mg 00:00: mouth [place] tablet 00 every Medical morning. Branch azithromyci 2021-07 Yes [id number] 250mg [facility] = [facility] 250 mg 0-27 500 mg day it[facility] o f tablet 00:00: 1, then [place] 00 250 mg Medical days 2 to Branch 5. Take 500 mg day 1, then 250 mg days 2 to 5. nebivoloL 2021-07 Yes [id number] 10mg Take 1 [facility] 10 mg 0-27 tablet by [facility] tablet 00:00: mouth in [place] 00 the Medical morning. Branch hydroCHLORO 2021-07 Yes [id number] 12.5mg Take 1 [facility] thiazide 0-27 tablet by [facility] of 12.5 mg 00:00: mouth [place] tablet 00 every Medical morning. Branch azithromyci 2021-07 Yes [id number] 250mg Z-Rom[facility] = [facility] 250 mg 0-27 500 mg day it[facility] o f tablet 00:00: 1, then [place] 00 250 mg Medical days 2 to Branch 5. Take 500 mg day 1, then 250 mg days 2 to 5. nebivoloL 2021-07 Yes [id number] 10mg Take 1 [facility] 10 mg 0-27 tablet by [facility] tablet 00:00: mouth in [place] 00 the Medical morning. Branch hydroCHLORO 2021-07 Yes [id number] 12.5mg Take 1 [facility] thiazide 0-27 tablet by [facility] of 12.5 mg 00:00: mouth [place] tablet 00 every Medical morning. Branch azithromyci 2021-07 Yes [id number] 250mg Z-[facility] = [facility] 250 mg 0-27 500 mg day it[facility] o f tablet 00:00: 1, then [place] 00 250 mg Medical days 2 to Branch 5. Take 500 mg day 1, then 250 mg days 2 to 5. nebivoloL 2021-07 Yes [id number] 10mg Take 1 [facility] 10 mg 0-27 tablet by [facility] tablet 00:00: mouth in [place] 00 the Medical morning. Branch hydroCHLORO 2021-07 Yes [id number] 12.5mg Take 1 [facility] thiazide 0-27 tablet by [facility] of 12.5 mg 00:00: mouth [place] tablet 00 every Medical morning. Branch azithromyci 2021-07 Yes [id number] 250mg Z-[facility] = [facility] 250 mg 0-27 500 mg day it[facility] o f tablet 00:00: 1, then [place] 00 250 mg Medical days 2 to Branch 5. Take 500 mg day 1, then 250 mg days 2 to 5. nebivoloL 2021-07 Yes [id number] 10mg Take 1 [facility] 10 mg 0-27 tablet by [facility] tablet 00:00: mouth in [place] 00 the Medical morning. Branch hydroCHLORO 2021-07 Yes [id number] 12.5mg Take 1 [facility] thiazide 0-27 tablet by [facility] of 12.5 mg 00:00: mouth [place] tablet 00 every Medical morning. Branch azithromyci 2021-07 Yes [id number] 250mg Z-[facility] = [facility] 250 mg 0-27 500 mg day it[facility] o f tablet 00:00: 1, then [place] 00 250 mg Medical days 2 to Branch 5. Take 500 mg day 1, then 250 mg days 2 to 5. nebivoloL 2021-07 Yes [id number] 10mg Take 1 [facility] 10 mg 0-27 tablet by [facility] tablet 00:00: mouth in [place] 00 the Medical morning. Branch azithromyci 2021-07 Yes [id number] 250mg [facility] = [facility] 250 mg 0-27 500 mg day ity o f tablet 00:00: 1, then [place] 00 250 mg Medical days 2 to Branch 5. Take 500 mg day 1, then 250 mg days 2 to 5. nebivoloL 2021-07 Yes [id number] 10mg Take 1 [facility] 10 mg 0-27 tablet by [facility] of tablet 00:00: mouth in [place] 00 the Medical morning. Branch azithromyci 2021-07 Yes [id number] 250mg Z-[facility] = [facility] 250 mg 0-27 500 mg day it[facility] o f tablet 00:00: 1, then [place] 00 250 mg Medical days 2 to Branch 5. Take 500 mg day 1, then 250 mg days 2 to 5. nebivoloL 2021-07 Yes [id number] 10mg Take 1 [facility] 10 mg 0-27 tablet by [facility] of tablet 00:00: mouth in [place] 00 the Medical morning. Branch [facility] 2021-07 Yes [id number] 250mg Z-Romel = [facility] 250 mg 0-27 500 mg day ity o f tablet 00:00: 1, then [place] 00 250 mg Medical days 2 to Branch 5. Take 500 mg day 1, then 250 mg days 2 to 5. nebivoloL 2021-07 Yes [id number] 10mg Take 1 [facility] 10 mg 0-27 tablet by [facility] of tablet 00:00: mouth in [place] 00 the Medical morning. Branch [facility] 2021-07 Yes [id number] 250mg Z-Romel = [facility] 250 mg 0-27 500 mg day ity o f tablet 00:00: 1, then [place] 00 250 mg Medical days 2 to Branch 5. Take 500 mg day 1, then 250 mg days 2 to 5. nebivoloL 2021-07 Yes [id number] 10mg Take 1 [facility] 10 mg 0-27 tablet by [facility] of tablet 00:00: mouth in [place] 00 the Medical morning. Branch [facility] 2021-07 Yes [id number] 250mg Z-Romel = [facility] 250 mg 0-27 500 mg day ity o f tablet 00:00: 1, then [place] 00 250 mg Medical days 2 to Branch 5. Take 500 mg day 1, then 250 mg days 2 to 5. nebivoloL 2021-07 Yes [id number] 10mg Take 1 [facility] 10 mg 0-27 tablet by [facility] of tablet 00:00: mouth in [place] 00 the Medical morning. Branch [facility] 2021-07 Yes [id number] 250mg Z-Romel = [facility] 250 mg 0-27 500 mg day ity o f tablet 00:00: 1, then [place] 00 250 mg Medical days 2 to Branch 5. Take 500 mg day 1, then 250 mg days 2 to 5. nebivoloL 2021-07 Yes [id number] 10mg Take 1 [facility] 10 mg 0-27 tablet by [facility] of tablet 00:00: mouth in [place] 00 the Medical morning. Branch azithromyci 2021-07 Yes [id number] 250mg Z-Romel = [facility] 250 mg 0-27 500 mg day ity o f tablet 00:00: 1, then [place] 00 250 mg Medical days 2 to Branch 5. Take 500 mg day 1, then 250 mg days 2 to 5. nebivoloL 2021-07 Yes [id number] 10mg Take 1 [facility] [place] 10 mg 0-27 tablet by [facility] of tablet 00:00: mouth in [place] 00 the Medical morning. Branch azithromyci 2021-07 Yes [id number] 250mg Z-Rom[facility] = [facility] 250 mg 0-27 500 mg day ity o f tablet 00:00: 1, then [place] 00 250 mg Medical days 2 to Branch 5. Take 500 mg day 1, then 250 mg days 2 to 5. nebivoloL 2021-07 Yes [id number] 10mg Take 1 [facility] 10 mg 0-27 tablet by [facility] of tablet 00:00: mouth in [place] 00 the Medical morning. Branch azithromyci 2021-07 Yes [id number] 250mg [facility]-Rom[facility] = [facility] 250 mg 0-27 500 mg day ity o f tablet 00:00: 1, then [place] 00 250 mg Medical days 2 to Branch 5. Take 500 mg day 1, then 250 mg days 2 to 5. nebivoloL 2021-07 Yes [id number] 10mg Take 1 [facility] 10 mg 0-27 tablet by [facility] of tablet 00:00: mouth in [place] 00 the Medical morning. Branch azithromyci 2021-07 Yes [id number] 250mg [facility]-Rom[facility] = [facility] 250 mg 0-27 500 mg day ity o f tablet 00:00: 1, then [place] 00 250 mg Medical days 2 to Branch 5. Take 500 mg day 1, then 250 mg days 2 to 5. nebivoloL 2021-07 Yes [id number] 10mg Take 1 [facility] 10 mg 0-27 tablet by [facility] of tablet 00:00: mouth in [place] 00 the Medical morning. Branch azithromyci 2021-07 Yes [id number] 250mg [facility] = [facility] 250 mg 0-27 500 mg day ity o f tablet 00:00: 1, then [place] 00 250 mg Medical days 2 to Branch 5. Take 500 mg day 1, then 250 mg days 2 to 5. azithromyci 2021-07 Yes [id number] 250mg [facility] = [facility] 250 mg 0-27 500 mg day ity o f tablet 00:00: 1, then [place] 00 250 mg Medical days 2 to Branch 5. Take 500 mg day 1, then 250 mg days 2 to 5. azithromyci 2021-07 Yes [id number] 250mg [facility] = [facility] 250 mg 0-27 500 mg day ity o f tablet 00:00: 1, then [place] 00 250 mg Medical days 2 to Branch 5. Take 500 mg day 1, then 250 mg days 2 to 5. azithromyci 2021-07 Yes [id number] 250mg [facility] = [facility] 250 mg 0-27 500 mg day ity o f tablet 00:00: 1, then [place] 00 250 mg Medical days 2 to Branch 5. Take 500 mg day 1, then 250 mg days 2 to 5. azithromyci 2021-07 Yes [id number] 250mg [facility] = [facility] 250 mg 0-27 500 mg day ity o f tablet 00:00: 1, then [place] 00 250 mg Medical days 2 to Branch 5. Take 500 mg day 1, then 250 mg days 2 to 5. azithromyci 2021-07 Yes [id number] 250mg [facility] = [facility] 250 mg 0-27 500 mg day ity o f tablet 00:00: 1, then [place] 00 250 mg Medical days 2 to Branch 5. Take 500 mg day 1, then 250 mg days 2 to 5. azithromyci 2021-07 Yes [id number] 250mg [facility] = [facility] 250 mg 0-27 500 mg day ity o f tablet 00:00: 1, then [place] 00 250 mg Medical days 2 to Branch 5. Take 500 mg day 1, then 250 mg days 2 to 5. azithromyci 2021-07 Yes [id number] 250mg [facility] = [facility] 250 mg 0-27 500 mg day ity o f tablet 00:00: 1, then [place] 00 250 mg Medical days 2 to Branch 5. Take 500 mg day 1, then 250 mg days 2 to 5. azithromyci 2021-07 Yes [id number] 250mg [facility] = [facility] 250 mg 0-27 500 mg day ity o f tablet 00:00: 1, then [place] 00 250 mg Medical days 2 to Branch 5. Take 500 mg day 1, then 250 mg days 2 to 5. azithromyci 2021-07 Yes [id number] 250mg [facility] = [facility] 250 mg 0-27 500 mg day ity o f tablet 00:00: 1, then [place] 00 250 mg Medical days 2 to Branch 5. Take 500 mg day 1, then 250 mg days 2 to 5. nebivoloL 2021-07- No [id number] 10mg Take 1 [facility] 10 mg 0-27 07-10 tablet by [facility] of tablet 00:00: 00:00 mouth in [place] 00 :00 the Medical morning. Branch hydroCHLORO 2021-07- No [id number] 12.5mg Take 1 [facility] thiazide 0-27 04-26 tablet by ity o f 12.5 mg 00:00: 00:00 mouth [place] tablet 00 :00 every Medical morning. Branch propranoloL 2021-07- No [id number] 10mg Take 1 [facility] 10 mg 0-27 12-29 9105 tablet by [facility] of tablet 00:00: 00:00 mouth in [place] 00 :00 the Medical morning Branch and 1 tablet in the evening. propranoloL 2021-07- No [id number] 10mg Take 1 [facility] 10 mg 0-27 12-29 9105 tablet by it[facility] of tablet 00:00: 00:00 mouth in [place] 00 :00 the Medical morning Branch and 1 tablet in the evening. zolpidem 10 2021-07- No [id number] 10mg Take 1 [facility] mg tablet 0-27 11-22 tablet by ity of 00:00: 00:00 mouth at [place] 00 :00 bedtime as Medical needed for Branch Insomnia. HYDROcodone 2021-07- No [id number] 1{tbl} Take 1 [facility] nivers -acetaminop 0-27 11-22 tablet by it y of hen 5-325 00:00: 00:00 mouth [place] mg tablet 00 :00 every 6 Medical (six) Branch hours as needed for Pain (scale 4-6). Indication s: chronic pain PROPRANOLOL Yes [id number] TAKE 1 [facility] 10 mg 9-22 9105 TABLET BY ity of tablet 00:00: MOUTH [place] 00 TWICE Medical DAILY. Branch PROPRANOLOL 2021-0 Yes [id number] TAKE 1 [facility] 10 mg 9-22 9105 TABLET BY ity of tablet 00:00: MOUTH [place] 00 TWICE Medical DAILY. Branch PROPRANOLOL 2021-0 Yes [id number] TAKE 1 [facility] 10 mg 9-22 9105 TABLET BY ity of tablet 00:00: MOUTH [place] 00 TWICE Medical DAILY. Branch PROPRANOLOL 2021-0 Yes [id number] TAKE 1 [facility] 10 mg 9-22 9105 TABLET BY ity of tablet 00:00: MOUTH [place] 00 TWICE Medical DAILY. Branch PROPRANOLOL 2021-0 Yes [id number] TAKE 1 [facility] 10 mg 9-22 9105 TABLET BY ity of tablet 00:00: MOUTH [place] 00 TWICE Medical DAILY. Branch PROPRANOLOL 2021-0 Yes [id number] TAKE 1 [facility] 10 mg 9-22 9105 TABLET BY ity of tablet 00:00: MOUTH [place] 00 TWICE Medical DAILY. Branch PROPRANOLOL 2021-2021- No [id number] TAKE 1 [facility] 10 mg 9-22 10-27 9105 TABLET BY ity of tablet 00:00: 00:00 MOUTH [place] 00 :00 TWICE Medical DAILY. Branch PROPRANOLOL 2021-0 2021- No [id number] TAKE 1 [facility] 10 mg 9-22 10-27 [...] 2745 1{tbl} Take 1 [facility] nivers -acetaminop 03-2914 tablet by it y of hen 5-325 00:00: 04:59 mouth [place] mg tablet 00 :00 every 6 Medical (six) Branch hours as needed for Pain (scale 4-6) for up to 7 days. Indication s: chronic pain lisinopril 2021- No 40mg Take 40 mg [facility] 40 mg 03-24 by mouth ity of tablet 15:55: 00:00 daily. [place] 02 :00 Medical Branch zolpidem 10 2021-0 Yes [id number] 10mg Take 1 [facility] mg tablet 9-01 tablet by ity o f 00:00: mouth at [place] 00 bedtime as Medical needed for Branch Insomnia. lisinopriL 2021-0 Yes [id number] 40mg Take 1 [facility] 40 mg 9-01 tablet by ity of tablet 00:00: mouth in [place] 00 the Medical morning. Branch zolpidem 10 2021-0 Yes [id number] 10mg Take 1 [facility] mg tablet 9-01 tablet by ity o f 00:00: mouth at [place] 00 bedtime as Medical needed for Branch Insomnia. lisinopriL 2021-0 Yes [id number] 40mg Take 1 [facility] 40 mg 9-01 tablet by ity of tablet 00:00: mouth in [place] 00 the Medical morning. Branch zolpidem 10 2021-0 Yes [id number] 10mg Take 1 [facility] mg tablet 9-01 tablet by ity o f 00:00: mouth at [place] 00 bedtime as Medical needed for Branch Insomnia. lisinopriL 2021-0 Yes [id number] 40mg Take 1 [facility] 40 mg 9-01 tablet by ity of tablet 00:00: mouth in [place] 00 the Medical morning. Branch zolpidem 10 2021-0 Yes [id number] 10mg Take 1 [facility] mg tablet 9-01 tablet by ity o f 00:00: mouth at [place] 00 bedtime as Medical needed for Branch Insomnia. lisinopriL 2021-0 Yes [id number] 40mg Take 1 [facility] 40 mg 9-01 tablet by [facility] tablet 00:00: mouth in [place] 00 the Medical morning. Branch zolpidem 10 2021-0 Yes [id number] 10mg Take 1 [facility] mg tablet 9-01 tablet by [facility] o f 00:00: mouth at [place] 00 bedtime as Medical needed for Branch Insomnia. lisinopriL 2021-0 Yes [id number] 40mg Take 1 [facility] 40 mg 9-01 tablet by [facility] of tablet 00:00: mouth in [place] 00 the Medical morning. Branch zolpidem 10 2021-0 Yes [id number] 10mg Take 1 [facility] mg tablet 9-01 tablet by [facility] o f 00:00: mouth at [place] 00 bedtime as Medical needed for Branch Insomnia. lisinopriL 0 Yes [id number] 40mg Take 1 [facility] 40 mg 9-01 tablet by [facility] of tablet 00:00: mouth in [place] 00 the Medical morning. Branch zolpidem 10 0 Yes [id number] 10mg Take 1 [facility] mg tablet 9-01 tablet by [facility] o f 00:00: mouth at [place] 00 bedtime as Medical needed for Branch Insomnia. lisinopriL 0 Yes [id number] 40mg Take 1 [facility] 40 mg 9-01 tablet by [facility] of tablet 00:00: mouth in [place] 00 the Medical morning. Branch zolpidem 10 0 Yes [id number] 10mg Take 1 [facility] mg tablet 9-01 tablet by [facility] o f 00:00: mouth at [place] 00 bedtime as Medical needed for Branch Insomnia. lisinopriL 0 Yes [id number] 40mg Take 1 [facility] 40 mg 9-01 tablet by [facility] of tablet 00:00: mouth in [place] 00 the Medical morning. Branch zolpidem 10 0 Yes [id number] 10mg Take 1 [facility] mg tablet 9-01 tablet by [facility] o f 00:00: mouth at [place] 00 bedtime as Medical needed for Branch Insomnia. lisinopriL 0 Yes [id number] 40mg Take 1 [facility] 40 mg 9-01 tablet by [facility] of tablet 00:00: mouth in [place] 00 the Medical morning. Branch zolpidem 10 0 Yes [id number] 10mg Take 1 [facility] mg tablet 9-01 tablet by [facility] o f 00:00: mouth at [place] 00 bedtime as Medical needed for Branch Insomnia. lisinopriL 0 Yes [id number] 40mg Take 1 [facility] 40 mg 9-01 tablet by [facility] of tablet 00:00: mouth in [place] 00 the Medical morning. Branch zolpidem 10 0 2021- No [id number] 10mg Take 1 [facility] mg tablet 9-01 10-27 tablet by [facility] of 00:00: 00:00 mouth at [place] 00 :00 bedtime as Medical needed for Branch Insomnia. lisinopriL 0 2021- No [id number] 40mg Take 1 [facility] 40 mg 9-01 10-27 tablet by [facility] of tablet 00:00: 00:00 mouth in [place] 00 :00 the Medical morning. Branch zolpidem 10 2021- No [id number] 10mg Take 1 [facility] mg tablet 03-24 tablet by [facility] of 00:00: 00:00 mouth at [place] 00 :00 bedtime as Medical needed for Branch Insomnia. lisinopriL 2021- No [id number] 40mg Take 1 [facility] 40 mg 03-24 tablet by [facility] of tablet 00:00: 00:00 mouth in [place] 00 :00 the Medical morning. Branch HYDROcodone 2021- No [id number] 1{tbl} Take 1 [facility] -acetaminop 8-10 03-10 tablet by it y of hen 5-325 00:00: 04:59 mouth [place] mg tablet 00 :00 every 6 Medical (six) Branch hours as needed for Pain (scale 4-6) for up to 7 days. Indication s: chronic pain zolpidem 10 Yes [id number] 10mg Take 1 [facility] mg tablet 02-17 tablet by it[facility] o f 00:00: mouth at [place] 00 bedtime as Medical needed for Branch Insomnia. zolpidem 10 Yes [id number] 10mg Take 1 [facility] mg tablet -28 tablet by [facility] o f 00:00: mouth at [place] 00 bedtime as Medical needed for Branch Insomnia. zolpidem 10 2021- No [id number] 10mg Take 1 [facility] mg tablet -03-24 tablet by [facility]y of 00:00: 00:00 mouth at [place] 00 :00 bedtime as Medical needed for Branch Insomnia. molnupiravi Yes [id number] 800mg Take 4 [facility] r 200 mg 7-22 capsules it[facility] of capsule 00:00: by mouth [place] [id number] every 12 Medical (twelve) Branch hours. molnupiravi 0 Yes [id number] 800mg Take 4 [facility] r 200 mg 7-22 capsules ity of capsule 00:00: by mouth [place] [address] every 12 Medical (twelve) Branch hours. molnupiravi Yes [id number] 800mg Take 4 [facility] r 200 mg 7-22 capsules [facility] of capsule 00:00: by mouth [place] [address] every 12 Medical (twelve) Branch hours. molnupiravi 2021-0 Yes [id number] 800mg Take 4 [facility] r 200 mg 7-22 capsules [facility] of capsule 00:00: by mouth [place] 00 every 12 Medical (twelve) Branch hours. molnupiravi 2021-0 Yes [id number] 800mg Take 4 [facility] r 200 mg 7-22 capsules [facility] of capsule 00:00: by mouth [place] 00 every 12 Medical (twelve) Branch hours. molnupiravi 2021-0 Yes [id number] 800mg Take 4 [facility] r 200 mg 7-22 capsules it[facility] of capsule 00:00: by mouth [place] 00 every 12 Medical (twelve) Branch hours. molnupiravi 2021-0 Yes [id number] 800mg Take 4 [facility] r 200 mg 7-22 capsules [facility] of capsule 00:00: by mouth [place] 00 every 12 Medical (twelve) Branch hours. molnupiravi 2021-0 Yes [id number] 800mg Take 4 [facility] r 200 mg 7-22 capsules [facility] of capsule 00:00: by mouth [place] 00 every 12 Medical (twelve) Branch hours. molnupiravi 2021-0 Yes [id number] 800mg Take 4 [facility] r 200 mg 7-22 capsules it[facility] of capsule 00:00: by mouth [place] 00 every 12 Medical (twelve) Branch hours. molnupiravi 0 Yes [id number] 800mg Take 4 [facility] r 200 mg 7-22 capsules [facility]y of capsule 00:00: by mouth [place] 00 every 12 Medical (twelve) Branch hours. molnupiravi 2021-0 Yes [id number] 800mg Take 4 [facility] r 200 mg 7-22 capsules ity of capsule 00:00: by mouth [place] 00 every 12 Medical (twelve) Branch hours. molnupiravi 2021-0 Yes [id number] 800mg Take 4 [facility] r 200 mg 7-22 capsules ity of capsule 00:00: by mouth [place] 00 every 12 Medical (twelve) Branch hours. molnupiravi 2021-0 Yes [id number] 800mg Take 4 [facility] r 200 mg 7-22 capsules ity of capsule 00:00: by mouth [place] 00 every 12 Medical (twelve) Branch hours. molnupiravi 2021-0 Yes [id number] 800mg Take 4 [facility] r 200 mg 7-22 capsules ity of capsule 00:00: by mouth [place] 00 every 12 Medical (twelve) Branch hours. molnupiravi 2021-0 Yes [id number] 800mg Take 4 [facility] r 200 mg 7-22 capsules [facility] of capsule 00:00: by mouth [place] 00 every 12 Medical (twelve) Branch hours. molnupiravi 2021-0 Yes [id number] 800mg Take 4 [facility] r 200 mg 7-22 capsules ity of capsule 00:00: by mouth [place] 00 every 12 Medical (twelve) Branch hours. molnupiravi 2021-0 Yes [id number] 800mg Take 4 [facility] r 200 mg 7-22 capsules [facility]y of capsule 00:00: by mouth [place] 00 every 12 Medical (twelve) Branch hours. molnupiravi 2021-0 Yes [id number] 800mg Take 4 [facility] r 200 mg 7-22 capsules ity of capsule 00:00: by mouth [place] 00 every 12 Medical (twelve) Branch hours. molnupiravi 2021-0 Yes [id number] 800mg Take 4 [facility] r 200 mg 7-22 capsules [facility]y of capsule 00:00: by mouth [place] 00 every 12 Medical (twelve) Branch hours. molnupiravi 2021-0 Yes [id number] 800mg Take 4 [facility] r 200 mg 7-22 capsules ity of capsule 00:00: by mouth [place] 00 every 12 Medical (twelve) Branch hours. molnupiravi 2021-0 Yes [id number] 800mg Take 4 [facility] r 200 mg 7-22 capsules [facility] of capsule 00:00: by mouth [place] 00 every 12 Medical (twelve) Branch hours. molnupiravi 2021-0 Yes [id number] 800mg Take 4 [facility] r 200 mg 7-22 capsules [facility] of capsule 00:00: by mouth [place] 00 every 12 Medical (twelve) Branch hours. molnupiravi 2021-0 Yes [id number] 800mg Take 4 [facility] r 200 mg 7-22 capsules [facility] of capsule 00:00: by mouth [place] 00 every 12 Medical (twelve) Branch hours. molnupiravi 0 2021- No [id number] 800mg Take 4 [facility] r 200 mg 7-22 12-29 capsules [facility] of capsule 00:00: 00:00 by mouth [place] 00 :00 every 12 Medical (twelve) Branch hours. molnupiravi 2021-2021- No [id number] 800mg Take 4 [facility] r 200 mg 02-11 12-29 capsules [facility]y of capsule 00:00: 00:00 by mouth [place] 00 :00 every 12 Medical (twelve) Branch hours. propranoloL 2021-0 Yes [id number] 10mg Take 1 [facility] 10 mg 3-24 9105 tablet by [facility] of tablet 00:00: mouth 2 (two) Medical times Branch daily. propranoloL 2021-0 Yes [id number] 10mg Take 1 [facility] 10 mg 3-24 9105 tablet by [facility] of tablet 00:00: mouth 2 (two) Medical times Branch daily. propranoloL 2021-0 Yes [id number] 10mg Take 1 [facility] 10 mg 3-24 9105 tablet by [facility] of tablet 00:00: mouth 2 [place] (two) Medical times Branch daily. propranoloL 2021-0 Yes [id number] 10mg Take 1 [facility] 10 mg 3-24 9105 tablet by [facility] of tablet 00:00: mouth 2 [place] (two) Medical times Branch daily. propranoloL 2021-0 Yes [id number] 10mg Take 1 [facility] 10 mg 3-24 9105 tablet by [facility] of tablet 00:00: mouth 2 [place] (two) Medical times Branch daily. propranoloL 2021-0 Yes [id number] 10mg Take 1 [facility] 10 mg 3-24 9105 tablet by [facility] of tablet 00:00: mouth 2 [place] (two) Medical times Branch daily. HYDROcodone Yes 1{tbl} Take 1 [facility] [place] -acetaminop 3-24 tablet by [facility] of hen 5-325 00:00: mouth. [place] mg tablet 00 Medical Branch HYDROcodone 2021- No 1{tbl} Take 1 [facility] -acetaminop 3-24 10-27 tablet by it y of hen 5-325 00:00: 00:00 mouth. [place] mg tablet 00 :00 Medical Branch HYDROcodone 2021-2021- No 1{tbl} Take 1 [facility] -acetaminop 3-24 10-27 tablet by it y of hen 5-325 00:00: 00:00 mouth. [place] mg tablet 00 :00 Medical Branch HYDROcodone 2021- No 1{tbl} Take 1 [facility] -acetaminop 3-24 10-27 tablet by it y of hen 5-325 00:00: 00:00 mouth. [place] mg tablet 00 :00 Medical Branch propranoloL 2022-0 2022- No [id number] 10mg Take 1 [facility] 10 mg 3-04-14 9105 tablet by ity of tablet 00:00: 00:00 mouth 2 [place] 00 :00 (two) Medical times Branch daily. hydroCHLORO 2-0 Yes 12.5mg Take 12.5 [facility] [...] every Medical morning. Branch ACETAMINOPH 2022-0 Yes [id number] TAKE 1 [facility] EN-CODEINE 3-08 TABLET BY ity of 300-30 mg 00:00: MOUTH [place] tablet 00 EVERY 4 Medical HOURS Branch NEEDED FOR MODERATE PAIN OR CHRONIC PAIN ACETAMINOPH 2022-0 Yes [id number] TAKE 1 [facility] EN-CODEINE 3-08 TABLET BY ity of 300-30 mg 00:00: MOUTH [place] tablet 00 EVERY 4 Medical HOURS Branch NEEDED FOR MODERATE PAIN OR CHRONIC PAIN ACETAMINOPH 2022-0 Yes [id number] TAKE 1 [facility] EN-CODEINE 3-08 TABLET BY ity of 300-30 mg 00:00: MOUTH [place] tablet 00 EVERY 4 Medical HOURS Branch NEEDED FOR MODERATE PAIN OR CHRONIC PAIN ACETAMINOPH 2022-0 Yes [id number] TAKE 1 [facility] EN-CODEINE 3-08 TABLET BY ity of 300-30 mg 00:00: MOUTH [place] tablet 00 EVERY 4 Medical HOURS Branch NEEDED FOR MODERATE PAIN OR CHRONIC PAIN ACETAMINOPH 2022-0 Yes [id number] TAKE 1 [facility] EN-CODEINE 3-08 TABLET BY ity of 300-30 mg 00:00: MOUTH [place] tablet 00 EVERY 4 Medical HOURS Branch NEEDED FOR MODERATE PAIN OR CHRONIC PAIN ACETAMINOPH 2022-0 Yes [id number] TAKE 1 [facility] EN-CODEINE 3-08 TABLET BY ity of 300-30 mg 00:00: MOUTH [place] tablet 00 EVERY 4 Medical HOURS Branch NEEDED FOR MODERATE PAIN OR CHRONIC PAIN ACETAMINOPH 2022-0 Yes [id number] TAKE 1 [facility] EN-CODEINE 3-08 TABLET BY ity of 300-30 mg 00:00: MOUTH [place] tablet 00 EVERY 4 Medical HOURS Branch NEEDED FOR MODERATE PAIN OR CHRONIC PAIN ACETAMINOPH 2022-0 Yes [id number] TAKE 1 [facility] EN-CODEINE 3-08 TABLET BY ity of 300-30 mg 00:00: MOUTH [place] tablet 00 EVERY 4 Medical HOURS Branch NEEDED FOR MODERATE PAIN OR CHRONIC PAIN ACETAMINOPH 2022-0 Yes [id number] TAKE 1 [facility] EN-CODEINE 3-08 TABLET BY ity of 300-30 mg 00:00: MOUTH [place] tablet 00 EVERY 4 Medical HOURS Branch NEEDED FOR MODERATE PAIN OR CHRONIC PAIN ACETAMINOPH 2022-0 Yes [id number] TAKE 1 [facility] EN-CODEINE 3-08 TABLET BY ity of 300-30 mg 00:00: MOUTH [place] tablet 00 EVERY 4 Medical HOURS Branch NEEDED FOR MODERATE PAIN OR CHRONIC PAIN ACETAMINOPH 2022-0 Yes [id number] TAKE 1 [facility] EN-CODEINE 3-08 TABLET BY ity of 300-30 mg 00:00: MOUTH [place] tablet 00 EVERY 4 Medical HOURS Branch NEEDED FOR MODERATE PAIN OR CHRONIC PAIN ACETAMINOPH 2022-0 Yes [id number] TAKE 1 [facility] EN-CODEINE 3-08 TABLET BY ity of 300-30 mg 00:00: MOUTH [place] tablet 00 EVERY 4 Medical HOURS Branch NEEDED FOR MODERATE PAIN OR CHRONIC PAIN ACETAMINOPH 2022-0 2022- No [id number] TAKE 1 [facility] EN-CODEINE 3-08 10-27 TABLET BY ity of 300-30 mg 00:00: 00:00 MOUTH [place] tablet 00 :00 EVERY 4 Medical HOURS Branch NEEDED FOR MODERATE PAIN OR CHRONIC PAIN ACETAMINOPH 2022-0 2022- No [id number] TAKE 1 [facility] EN-CODEINE 3-08 10-27 TABLET [...] TABLET BY ity of tablet 00:00: MOUTH [place] 00 EVERY DAY Medical MONITOR Branch BLOOD PRESSURE WE DISUSSED furosemide 2021-0 Yes TAKE 1 [facility] rs 20 mg 3-03 TABLET BY ity of tablet 00:00: MOUTH [place] 00 EVERY DAY Medical MONITOR Branch BLOOD PRESSURE WE DISUSSED furosemide 2021-0 Yes TAKE 1 [facility] rs 20 mg 3-03 TABLET BY ity of tablet 00:00: MOUTH [place] 00 EVERY DAY Medical MONITOR Branch BLOOD PRESSURE WE DISUSSED furosemide 2021-0 Yes TAKE 1 [facility] rs 20 mg 3-03 TABLET BY ity of tablet 00:00: MOUTH [place] 00 EVERY DAY Medical MONITOR Branch BLOOD PRESSURE WE DISUSSED furosemide 2021-0 Yes TAKE 1 [facility] rs 20 mg 3-03 TABLET BY ity of tablet 00:00: MOUTH [place] 00 EVERY DAY Medical MONITOR Branch BLOOD PRESSURE WE DISUSSED furosemide 2021-0 Yes TAKE 1 [facility] rs 20 mg 3-03 TABLET BY ity of tablet 00:00: MOUTH [place] 00 EVERY DAY Medical MONITOR Branch BLOOD PRESSURE WE DISUSSED furosemide 2021-0 Yes TAKE 1 [facility] rs 20 mg 3-03 TABLET BY ity of tablet 00:00: MOUTH [place] 00 EVERY DAY Medical MONITOR Branch BLOOD PRESSURE WE DISUSSED furosemide 2021-0 Yes TAKE 1 [facility] rs 20 mg 3-03 TABLET BY ity of tablet 00:00: MOUTH [place] 00 EVERY DAY Medical MONITOR Branch BLOOD PRESSURE WE DISUSSED furosemide 2021-0 Yes TAKE 1 [facility] rs 20 mg 3-03 TABLET BY ity of tablet 00:00: MOUTH [place] 00 EVERY DAY Medical MONITOR Branch BLOOD PRESSURE WE DISUSSED furosemide 2021-0 Yes TAKE 1 [facility] rs 20 mg 3-03 TABLET BY ity of tablet 00:00: MOUTH [place] 00 EVERY DAY Medical MONITOR Branch BLOOD PRESSURE WE DISUSSED furosemide 2-0 Yes TAKE 1 [facility] rs 20 mg 3-03 TABLET BY ity of tablet 00:00: MOUTH [place] 00 EVERY DAY Medical MONITOR Branch BLOOD PRESSURE WE DISUSSED furosemide 2021-0 Yes TAKE 1 [facility] rs 20 mg 3-03 TABLET BY ity of tablet 00:00: MOUTH [place] 00 EVERY DAY Medical MONITOR Branch BLOOD PRESSURE WE DISUSSED furosemide 2021-0 Yes TAKE 1 [facility] rs 20 mg 3-03 TABLET BY ity of tablet 00:00: MOUTH [place] 00 EVERY DAY Medical MONITOR Branch BLOOD PRESSURE WE DISUSSED furosemide 2021-0 Yes TAKE 1 [facility] rs 20 mg 3-03 TABLET BY ity of tablet 00:00: MOUTH [place] 00 EVERY DAY Medical MONITOR Branch BLOOD PRESSURE WE DISUSSED furosemide 2021-0 Yes TAKE 1 [facility] rs 20 mg 3-03 TABLET BY ity of tablet 00:00: [facility] 00 EVERY DAY Medical MONITOR Branch BLOOD PRESSURE WE DISUSSED furosemide 2021-0 Yes TAKE 1 [facility] rs 20 mg 3-03 TABLET BY ity of tablet 00:00: [facility] 00 EVERY DAY Medical MONITOR Branch BLOOD PRESSURE WE DISUSSED furosemide 2021-0 Yes TAKE 1 [facility] rs 20 mg 3-03 TABLET BY ity of tablet 00:00: MOUTH [place] 00 EVERY DAY Medical MONITOR Branch BLOOD PRESSURE WE DISUSSED furosemide 2021-0 Yes TAKE 1 [facility] rs 20 mg 3-03 TABLET BY ity of tablet 00:00: [facility] 00 EVERY DAY Medical MONITOR Branch BLOOD PRESSURE WE DISUSSED furosemide 2021-0 Yes TAKE 1 [facility] rs 20 mg 3-03 TABLET BY ity of tablet 00:00: [facility] 00 EVERY DAY Medical MONITOR Branch BLOOD PRESSURE WE DISUSSED furosemide 2021-0 Yes TAKE 1 [facility] rs 20 mg 3-03 TABLET BY ity of tablet 00:00: MOUTH [place] 00 EVERY DAY Medical MONITOR Branch BLOOD PRESSURE WE DISUSSED furosemide 2021-0 Yes TAKE 1 [facility] rs 20 mg 3-03 TABLET BY ity of tablet 00:00: [facility] 00 EVERY DAY Medical MONITOR Branch BLOOD PRESSURE WE DISUSSED furosemide 2021-0 Yes TAKE 1 [facility] rs 20 mg 3-03 TABLET BY ity of tablet 00:00: MOUTH [place] 00 EVERY DAY Medical MONITOR Branch BLOOD PRESSURE WE DISUSSED furosemide 2-0 Yes TAKE 1 [facility] rs 20 mg 3-03 TABLET BY ity of tablet 00:00: MOUTH [place] 00 EVERY DAY Medical MONITOR Branch BLOOD PRESSURE WE DISUSSED furosemide 2-0 Yes TAKE 1 [facility] rs 20 mg 3-03 TABLET BY ity of tablet 00:00: MOUTH [place] EVERY DAY Medical MONITOR Branch BLOOD PRESSURE WE DISUSSED furosemide 2021-0 Yes TAKE 1 [facility] rs 20 mg 3-03 TABLET BY ity of tablet 00:00: MOUTH [place] EVERY DAY Medical MONITOR Branch BLOOD PRESSURE WE DISUSSED furosemide 2021-0 Yes TAKE 1 [facility] rs 20 mg 3-03 TABLET BY ity of tablet 00:00: MOUTH [place] EVERY DAY Medical MONITOR Branch BLOOD PRESSURE WE DISUSSED furosemide 2021-0 Yes TAKE 1 [facility] rs 20 mg 3-03 TABLET BY ity of tablet 00:00: [facility] EVERY DAY Medical MONITOR Branch BLOOD PRESSURE WE DISUSSED furosemide 2021-0 Yes TAKE 1 [facility] rs 20 mg 3-03 TABLET BY ity of tablet 00:00: [facility] EVERY DAY Medical MONITOR Branch BLOOD PRESSURE WE DISUSSED furosemide 2021-0 Yes TAKE 1 [facility] rs 20 mg 3-03 TABLET BY ity of tablet 00:00: [facility] EVERY DAY Medical MONITOR Branch BLOOD PRESSURE WE DISUSSED furosemide 2021-0 Yes TAKE 1 [facility] rs 20 mg 3-03 TABLET BY ity of tablet 00:00: [facility] EVERY DAY Medical MONITOR Branch BLOOD PRESSURE WE DISUSSED furosemide 2021-0 Yes TAKE 1 [facility] rs 20 mg 3-03 TABLET BY ity of tablet 00:00: [facility] 00 EVERY DAY Medical MONITOR Branch BLOOD PRESSURE WE DISUSSED furosemide 2-0 Yes TAKE 1 [facility] rs 20 mg 3-03 TABLET BY ity of tablet 00:00: [facility] 00 EVERY DAY Medical MONITOR Branch BLOOD PRESSURE WE DISUSSED furosemide 2-0 Yes TAKE 1 [facility] rs 20 mg 3-03 TABLET BY ity of tablet 00:00: [facility] 00 EVERY DAY Medical MONITOR Branch BLOOD PRESSURE WE DISUSSED furosemide 2-0 Yes TAKE 1 [facility] rs 20 mg 3-03 TABLET BY ity of tablet 00:00: [facility] 00 EVERY DAY Medical MONITOR Branch BLOOD PRESSURE WE DISUSSED furosemide 2-0 Yes TAKE 1 [facility] rs 20 mg 3-03 TABLET BY ity of tablet 00:00: [facility] 00 EVERY DAY Medical MONITOR Branch BLOOD PRESSURE WE DISUSSED furosemide 2021-0 Yes TAKE 1 [facility] rs 20 mg 3-03 TABLET BY ity of tablet 00:00: MOUTH [place] 00 EVERY DAY Medical MONITOR Branch BLOOD PRESSURE WE DISUSSED furosemide 2021-0 Yes TAKE 1 [facility] rs 20 mg 3-03 TABLET BY ity of tablet 00:00: MOUTH [place] 00 EVERY DAY Medical MONITOR Branch BLOOD PRESSURE WE DISUSSED furosemide 0 Yes TAKE 1 [facility] rs 20 mg 3-03 TABLET BY ity of tablet 00:00: MOUTH [place] 00 EVERY DAY Medical MONITOR Branch BLOOD PRESSURE WE DISUSSED furosemide 0 Yes TAKE 1 [facility] rs 20 mg 3-03 TABLET BY ity of tablet 00:00: MOUTH [place] 00 EVERY DAY Medical MONITOR Branch BLOOD PRESSURE WE DISUSSED furosemide 0 Yes TAKE 1 [facility] rs 20 mg 3-03 TABLET BY ity of tablet 00:00: MOUTH [place] 00 EVERY DAY Medical MONITOR Branch BLOOD PRESSURE WE DISUSSED furosemide 0 Yes TAKE 1 [facility] rs 20 mg 3-03 TABLET BY ity of tablet 00:00: MOUTH [place] 00 EVERY DAY Medical MONITOR Branch BLOOD PRESSURE WE DISUSSED furosemide 2021-0 Yes TAKE 1 [facility] rs 20 mg 3-03 TABLET BY ity of tablet 00:00: MOUTH [place] 00 EVERY DAY Medical MONITOR Branch BLOOD PRESSURE WE DISUSSED furosemide 2021-0 Yes TAKE 1 [facility] rs 20 mg 3-03 TABLET BY ity of tablet 00:00: MOUTH [place] 00 EVERY DAY Medical MONITOR Branch BLOOD PRESSURE WE DISUSSED furosemide 2021-0 Yes TAKE 1 [facility] rs 20 mg 3-03 TABLET BY ity of tablet 00:00: MOUTH [place] 00 EVERY DAY Medical MONITOR Branch BLOOD PRESSURE WE DISUSSED furosemide 2021-0 Yes TAKE 1 [facility] rs 20 mg 3-03 TABLET BY ity of tablet 00:00: MOUTH [place] 00 EVERY DAY Medical MONITOR Branch BLOOD PRESSURE WE DISUSSED furosemide 2021-0 Yes TAKE 1 [facility] rs 20 mg 3-03 TABLET BY ity of tablet 00:00: MOUTH [place] 00 EVERY DAY Medical MONITOR Branch BLOOD PRESSURE WE DISUSSED furosemide 2021-0 Yes TAKE 1 [facility] rs 20 mg 3-03 TABLET BY ity of tablet 00:00: [facility] 00 EVERY DAY Medical MONITOR Branch BLOOD PRESSURE WE DISUSSED furosemide 2021-0 Yes TAKE 1 [facility] rs 20 mg 3-03 TABLET BY ity of tablet 00:00: MOUTH [place] 00 EVERY DAY Medical MONITOR Branch BLOOD PRESSURE WE DISUSSED furosemide 2021-0 Yes TAKE 1 [facility] rs 20 mg 3-03 TABLET BY ity of tablet 00:00: MOUTH [place] 00 EVERY DAY Medical MONITOR Branch BLOOD PRESSURE WE DISUSSED furosemide 2021-0 Yes TAKE 1 [facility] rs 20 mg 3-03 TABLET BY ity of tablet 00:00: MOUTH [place] 00 EVERY DAY Medical MONITOR Branch BLOOD PRESSURE WE DISUSSED furosemide 2021-0 Yes TAKE 1 [facility] rs 20 mg 3-03 TABLET BY ity of tablet 00:00: MOUTH [place] 00 EVERY DAY Medical MONITOR Branch BLOOD PRESSURE WE DISUSSED furosemide 2021-0 Yes TAKE 1 [facility] rs 20 mg 3-03 TABLET BY ity of tablet 00:00: [facility] 00 EVERY DAY Medical MONITOR Branch BLOOD PRESSURE WE DISUSSED furosemide 0 Yes TAKE 1 [facility] rs 20 mg 3-03 TABLET BY ity of tablet 00:00: [facility] 00 EVERY DAY Medical MONITOR Branch BLOOD PRESSURE WE DISUSSED furosemide 2021-0 Yes TAKE 1 [facility] rs 20 mg 3-03 TABLET BY ity of tablet 00:00: [facility] 00 EVERY DAY Medical MONITOR Branch BLOOD PRESSURE WE DISUSSED furosemide 2021-0 Yes TAKE 1 [facility] rs 20 mg 3-03 TABLET BY ity of tablet 00:00: [facility] 00 EVERY DAY Medical MONITOR Branch BLOOD PRESSURE WE DISUSSED furosemide 2021-0 Yes TAKE 1 [facility] rs 20 mg 3-03 TABLET BY ity of tablet 00:00: [facility] 00 EVERY DAY Medical MONITOR Branch BLOOD PRESSURE WE DISUSSED furosemide 2021-0 Yes TAKE 1 [facility] rs 20 mg 3-03 TABLET BY ity of tablet 00:00: MOUTH [place] 00 EVERY DAY Medical MONITOR Branch BLOOD PRESSURE WE DISUSSED furosemide 2021-0 Yes TAKE 1 [facility] rs 20 mg 3-03 TABLET BY ity of tablet 00:00: [facility] 00 EVERY DAY Medical MONITOR Branch BLOOD PRESSURE WE DISUSSED furosemide 2021-0 Yes TAKE 1 [facility] rs 20 mg 3-03 TABLET BY ity of tablet 00:00: [facility] 00 EVERY DAY Medical MONITOR Branch BLOOD PRESSURE WE DISUSSED furosemide 2021-0 Yes TAKE 1 [facility] rs 20 mg 3-03 TABLET BY ity of tablet 00:00: MOUTH [place] EVERY DAY Medical MONITOR Branch BLOOD PRESSURE WE DISUSSED furosemide 2021-0 Yes TAKE 1 [facility] rs 20 mg 3-03 TABLET BY ity of tablet 00:00: MOUTH [place] EVERY DAY Medical MONITOR Branch BLOOD PRESSURE WE DISUSSED furosemide 2021-0 Yes TAKE 1 [facility] rs 20 mg 3-03 TABLET BY ity of tablet 00:00: MOUTH [place] EVERY DAY Medical MONITOR Branch BLOOD PRESSURE WE DISUSSED furosemide 2021-0 Yes TAKE 1 [facility] rs 20 mg 3-03 TABLET BY ity of tablet 00:00: MOUTH [place] EVERY DAY Medical MONITOR Branch BLOOD PRESSURE WE DISUSSED furosemide 2021-0 Yes TAKE 1 [facility] rs 20 mg 3-03 TABLET BY ity of tablet 00:00: [facility] EVERY DAY Medical MONITOR Branch BLOOD PRESSURE WE DISUSSED furosemide 2021-0 Yes TAKE 1 [facility] rs 20 mg 3-03 TABLET BY ity of tablet 00:00: [facility] EVERY DAY Medical MONITOR Branch BLOOD PRESSURE WE DISUSSED furosemide 2021-0 Yes TAKE 1 [facility] rs 20 mg 3-03 TABLET BY ity of tablet 00:00: MOUTH [place] EVERY DAY Medical MONITOR Branch BLOOD PRESSURE WE DISUSSED atorvastati 0 Yes 40mg Take 40 mg [facility] n 40 mg 1-21 by mouth ity of tablet 00:00: daily. [place] [facility] Branch atorvastati 2021-0 Yes 40mg Take 40 mg [facility] n 40 mg 1-21 by mouth ity of tablet 00:00: daily. [place] [facility] atorvastati 2021-0 Yes 40mg Take 40 mg [facility] n 40 mg 1-21 by mouth ity of tablet 00:00: daily. [place] [facility] atorvastati 2021-0 Yes 40mg Take 40 mg [facility] n 40 mg 1-21 by mouth ity of tablet 00:00: daily. Medical Branch atorvastati 2021-0 Yes 40mg Take 40 mg [facility] n 40 mg 1-21 by mouth ity of tablet 00:00: daily. [place] [facility] atorvastati 2021-0 Yes 40mg Take 40 mg [facility] n 40 mg 1-21 by mouth ity of tablet 00:00: daily. Medical Branch atorvastati 0 Yes 40mg Take 40 mg [facility] n 40 mg 1-21 by mouth ity of tablet 00:00: daily. [facility] Branch atorvastati 0 Yes 40mg Take 40 mg [facility] n 40 mg 1-21 by mouth ity of tablet 00:00: daily. [facility] Branch atorvastati 0 Yes 40mg Take 40 mg [facility] n 40 mg 1-21 by mouth ity of tablet 00:00: daily. [facility] Branch atorvastati 0 Yes 40mg Take 40 mg [facility] n 40 mg 1-21 by mouth ity of tablet 00:00: daily. [facility] Branch atorvastati 0 Yes 40mg Take 40 mg [facility] n 40 mg 1-21 by mouth ity of tablet 00:00: daily. [facility] Branch atorvastati 0 Yes 40mg Take 40 mg [facility] n 40 mg 1-21 by mouth ity of tablet 00:00: daily. [facility] Branch atorvastati 0 Yes 40mg Take 40 mg [facility] n 40 mg 1-21 by mouth ity of tablet 00:00: daily. [facility] Branch atorvastati 0 Yes 40mg Take 40 mg [facility] n 40 mg 1-21 by mouth ity of tablet 00:00: daily. [facility] Branch atorvastati 0 Yes 40mg Take 40 mg [facility] n 40 mg 1-21 by mouth ity of tablet 00:00: daily. [facility] atorvastati 0 Yes 40mg Take 40 mg Univers n 40 mg 1-21 by mouth ity of tablet 00:00: daily. [facility] atorvastati 0 Yes 40mg Take 40 mg [facility] n 40 mg 1-21 by mouth ity of tablet 00:00: daily. [place] [facility] atorvastati 0 Yes 40mg Take 40 mg Univers n 40 mg 1-21 by mouth ity of tablet 00:00: daily. [facility] atorvastati 0 Yes 40mg Take 40 mg [facility] n 40 mg 1-21 by mouth ity of tablet 00:00: daily. [facility] atorvastati 0 Yes 40mg Take 40 mg [facility] n 40 mg 1-21 by mouth ity of tablet 00:00: daily. [facility] atorvastati 0 Yes 40mg Take 40 mg [facility] n 40 mg 1-21 by mouth ity of tablet 00:00: daily. [facility] atorvastati 0 Yes 40mg Take 40 mg [facility] n 40 mg 1-21 by mouth ity of tablet 00:00: daily. [facility] atorvastati 0 Yes 40mg Take 40 mg [facility] n 40 mg 1-21 by mouth ity of tablet 00:00: daily. [facility] atorvastati 0 Yes 40mg Take 40 mg [facility] n 40 mg 1-21 by mouth ity of tablet 00:00: daily. [facility] atorvastati 0 Yes 40mg Take 40 mg [facility] n 40 mg 1-21 by mouth ity of tablet 00:00: daily. [facility] atorvastati Yes 40mg Take 40 mg [facility] n 40 mg 1-21 by mouth ity of tablet 00:00: daily. [facility] atorvastati 0 Yes 40mg Take 40 mg [facility] n 40 mg 1-21 by mouth ity of tablet 00:00: daily. [facility] atorvastati 0 Yes 40mg Take 40 mg [facility] n 40 mg 1-21 by mouth ity of tablet 00:00: daily. [facility] atorvastati Yes 40mg Take 40 mg [facility] n 40 mg 1-21 by mouth ity of tablet 00:00: daily. [facility] atorvastati 0 Yes 40mg Take 40 mg [facility] n 40 mg 1-21 by mouth ity of tablet 00:00: daily. [facility] atorvastati 0 Yes 40mg Take 40 mg [facility] n 40 mg 1-21 by mouth ity of tablet 00:00: daily. [facility] atorvastati 0 Yes 40mg Take 40 mg [facility] n 40 mg 1-21 by mouth ity of tablet 00:00: daily. [facility] atorvastati 0 Yes 40mg Take 40 mg [facility] n 40 mg 1-21 by mouth ity of tablet 00:00: daily. [facility] atorvastati Yes 40mg Take 40 mg [facility] n 40 mg 1-21 by mouth ity of tablet 00:00: daily. [facility] atorvastati 0 Yes 40mg Take 40 mg [facility] n 40 mg 1-21 by mouth ity of tablet 00:00: daily. [facility] atorvastati Yes 40mg Take 40 mg [facility] n 40 mg 1-21 by mouth ity of tablet 00:00: daily. [facility] atorvastati 0 Yes 40mg Take 40 mg [facility] n 40 mg 1-21 by mouth ity of tablet 00:00: daily. [facility] atorvastati 0 Yes 40mg Take 40 mg [facility] n 40 mg 1-21 by mouth ity of tablet 00:00: daily. [facility] atorvastati Yes 40mg Take 40 mg [facility] n 40 mg 1-21 by mouth ity of tablet 00:00: daily. [facility] atorvastati Yes 40mg Take 40 mg [facility] n 40 mg 1-21 by mouth ity of tablet 00:00: daily. [facility] atorvastati Yes 40mg Take 40 mg [facility] n 40 mg 1-21 by mouth ity of tablet 00:00: daily. [facility] atorvastati 0 Yes 40mg Take 40 mg [facility] n 40 mg 1-21 by mouth ity of tablet 00:00: daily. [facility] atorvastati 0 Yes 40mg Take 40 mg [facility] n 40 mg 1-21 by mouth ity of tablet 00:00: daily. [facility] atorvastati 0 Yes 40mg Take 40 mg [facility] n 40 mg 1-21 by mouth ity of tablet 00:00: daily. [facility] atorvastati 0 Yes 40mg Take 40 mg [facility] n 40 mg 1-21 by mouth ity of tablet 00:00: daily. [facility] atorvastati 0 Yes 40mg Take 40 mg [facility] n 40 mg 1-21 by mouth ity of tablet 00:00: daily. [facility] atorvastati 0 Yes 40mg Take 40 mg [facility] n 40 mg 1-21 by mouth ity of tablet 00:00: daily. [facility] atorvastati 2021-0 Yes 40mg Take 40 mg [facility] n 40 mg 1-21 by mouth ity of tablet 00:00: daily. [facility] atorvastati 2021-0 Yes 40mg Take 40 mg [facility] n 40 mg 1-21 by mouth ity of tablet 00:00: daily. [facility] atorvastati 2021-0 Yes 40mg Take 40 mg [facility] n 40 mg 1-21 by mouth ity of tablet 00:00: daily. [facility] atorvastati 2021-0 Yes 40mg Take 40 mg [facility] n 40 mg 1-21 by mouth ity of tablet 00:00: daily. [facility] atorvastati 0 Yes 40mg Take 40 mg [facility] n 40 mg 1-21 by mouth ity of tablet 00:00: daily. [facility] atorvastati 2021-0 Yes 40mg Take 40 mg [facility] n 40 mg 1-21 by mouth ity of tablet 00:00: daily. [facility] atorvastati 2021-0 Yes 40mg Take 40 mg [facility] n 40 mg 1-21 by mouth ity of tablet 00:00: daily. [facility] atorvastati 0 Yes 40mg Take 40 mg [facility] n 40 mg 1-21 by mouth ity of tablet 00:00: daily. [facility] atorvastati 0 Yes 40mg Take 40 mg [facility] n 40 mg 1-21 by mouth ity of tablet 00:00: daily. [facility] atorvastati 2021-0 Yes 40mg Take 40 mg [facility] n 40 mg 1-21 by mouth ity of tablet 00:00: daily. [facility] atorvastati 2021-0 Yes 40mg Take 40 mg [facility] n 40 mg 1-21 by mouth ity of tablet 00:00: daily. [facility] atorvastati 2021-0 Yes 40mg Take 40 mg [facility] n 40 mg 1-21 by mouth ity of tablet 00:00: daily. [facility] atorvastati 2021-0 Yes 40mg Take 40 mg [facility] n 40 mg 1-21 by mouth ity of tablet 00:00: daily. [facility] atorvastati 0 Yes 40mg Take 40 mg [facility] n 40 mg 1-21 by mouth ity of tablet 00:00: daily. [facility] atorvastati 0 Yes 40mg Take 40 mg [facility] n 40 mg 1-21 by mouth ity of tablet 00:00: daily. [facility] atorvastati 0 Yes 40mg Take 40 mg [facility] n 40 mg 1-21 by mouth ity of tablet 00:00: daily. [facility] atorvastati 0 Yes 40mg Take 40 mg [facility] n 40 mg 1-21 by mouth ity of tablet 00:00: daily. [facility] atorvastati 0 Yes 40mg Take 40 mg [facility] n 40 mg 1-21 by mouth ity of tablet 00:00: daily. [facility] atorvastati 0 Yes 40mg Take 40 mg [facility] n 40 mg 1-21 by mouth ity of tablet 00:00: daily. [facility] atorvastati 0 Yes 40mg Take 40 mg [facility] n 40 mg 1-21 by mouth ity of tablet 00:00: daily. [facility] atorvastati 0 Yes 40mg Take 40 mg [facility] n 40 mg 1-21 by mouth ity of tablet 00:00: daily. [facility] atorvastati 0 Yes 40mg Take 40 mg [facility] n 40 mg 1-21 by mouth ity of tablet 00:00: daily. [facility] nebivoloL 2021-0 Yes TAKE 1 Univer s 10 mg 1-11 TABLET BY ity of tablet 00:00: MOUTH [place] DAY [facility] nebivoloL 2021-0 Yes TAKE 1 Univer s 10 mg 1-11 TABLET BY ity of tablet 00:00: MOUTH [place] DAY [facility] Branch nebivoloL 2021-0 Yes TAKE 1 Univer s 10 mg 1-11 TABLET BY ity of tablet 00:00: MOUTH [place] DAY [facility] Branch nebivoloL 2021-0 Yes TAKE 1 Univer s 10 mg 1-11 TABLET BY ity of tablet 00:00: MOUTH [place] DAY [facility] Branch nebivoloL 2021-0 Yes TAKE 1 Univer s 10 mg 1-11 TABLET BY ity of tablet 00:00: MOUTH [place] DAY Medical Branch nebivoloL 2-0 Yes TAKE 1 Univer s 10 mg 1-11 TABLET BY ity of tablet 00:00: MOUTH [place] 00 EVERY DAY Medical Branch nebivoloL 2021-0 Yes TAKE 1 Univer s 10 mg 1-11 TABLET BY ity of tablet 00:00: MOUTH [place] 00 EVERY DAY Medical Branch nebivoloL 2-0 Yes [...] [place] 00 EVERY DAY Medical Branch nebivoloL 2-0 2- No TAKE 1 Unive rs 10 mg 1-11 10-27 TABLET BY ity of tablet 00:00: 00:00 MOUTH [place] 00 :00 EVERY DAY Medical Branch nebivoloL 2021-0 2- No TAKE 1 [facility]ive rs 10 mg 1-11 10-27 TABLET BY ity of tablet 00:00: 00:00 MOUTH [place] 00 :00 EVERY DAY Medical Branch ergocalcife 2021-0 Yes [id number] Take 1 Univers rol, 9-07 capsule by ity of vitamin d2, 00:00: mouth [place] 1,250 mcg 00 weekly. Medical (50,000 Branch unit) capsule ergocalcife 2021-0 Yes [id number] Take 1 Univers rol, 9-07 capsule by ity of vitamin d2, 00:00: mouth [place] 1,250 mcg 00 weekly. Medical (50,000 Branch unit) capsule ergocalcife 2021-0 Yes [id number] Take 1 [facility] rol, 9-07 capsule by ity of vitamin d2, 00:00: mouth [place] 1,250 mcg 00 weekly. Medical (50,000 Branch unit) capsule ergocalcife 2021-0 Yes [id number] Take 1 [facility] rol, 9-07 capsule by ity of vitamin d2, 00:00: mouth [place] 1,250 mcg 00 weekly. Medical (50,000 Branch unit) capsule ergocalcife 2021-0 Yes [id number] Take 1 [facility] rol, 9-07 capsule by ity of vitamin d2, 00:00: mouth [place] 1,250 mcg 00 weekly. Medical (50,000 Branch unit) capsule ergocalcife 2021-0 Yes [id number] Take 1 [facility] rol, 9-07 capsule by ity of vitamin d2, 00:00: mouth [place] 1,250 mcg 00 weekly. Medical (50,000 Branch unit) capsule ergocalcife 2021-0 Yes [id number] Take 1 [facility] rol, 9-07 capsule by ity of vitamin d2, 00:00: mouth [place] 1,250 mcg 00 weekly. Medical (50,000 Branch unit) capsule ergocalcife 2021-0 Yes [id number] Take 1 [facility] rol, 9-07 capsule by ity of vitamin d2, 00:00: mouth [place] 1,250 mcg 00 weekly. Medical (50,000 Branch unit) capsule ergocalcife 2021-0 Yes [id number] Take 1 [facility] rol, 9-07 capsule by ity of vitamin d2, 00:00: mouth [place] 1,250 mcg 00 weekly. Medical (50,000 Branch unit) capsule ergocalcife 2021-0 Yes [id number] Take 1 [facility] rol, 9-07 capsule by ity of vitamin d2, 00:00: mouth [place] 1,250 mcg 00 weekly. Medical (50,000 Branch unit) capsule ergocalcife 2021-0 Yes [id number] Take 1 [facility] rol, 9-07 capsule by ity of vitamin d2, 00:00: mouth [place] 1,250 mcg 00 weekly. Medical (50,000 Branch unit) capsule ergocalcife 2021-0 Yes [id number] Take 1 [facility] rol, 9-07 capsule by ity of vitamin d2, 00:00: mouth [place] 1,250 mcg 00 weekly. Medical (50,000 Branch unit) capsule ergocalcife 2021-0 Yes [id number] Take 1 [facility] rol, 9-07 capsule by ity of vitamin d2, 00:00: mouth [place] 1,250 mcg 00 weekly. Medical (50,000 Branch unit) capsule ergocalcife 2021-0 Yes [id number] Take 1 [facility] rol, 9-07 capsule by ity of vitamin d2, 00:00: mouth [place] 1,250 mcg 00 weekly. Medical (50,000 Branch unit) capsule ergocalcife 2021-0 Yes [id number] Take 1 [facility] rol, 9-07 capsule by ity of vitamin d2, 00:00: mouth [place] 1,250 mcg 00 weekly. Medical (50,000 Branch unit) capsule ergocalcife 2021-0 Yes [id number] Take 1 [facility] rol, 9-07 capsule by ity of vitamin d2, 00:00: mouth [place] 1,250 mcg 00 weekly. Medical (50,000 Branch unit) capsule ergocalcife 2021-0 Yes [id number] Take 1 [facility] rol, 9-07 capsule by ity of vitamin d2, 00:00: mouth [place] 1,250 mcg 00 weekly. Medical (50,000 Branch unit) capsule ergocalcife 2021-0 Yes [id number] Take 1 [facility] rol, 9-07 capsule by ity of vitamin d2, 00:00: mouth [place] 1,250 mcg 00 weekly. Medical (50,000 Branch unit) capsule ergocalcife 2021-0 Yes [id number] Take 1 [facility] rol, 9-07 capsule by ity of vitamin d2, 00:00: mouth [place] 1,250 mcg 00 weekly. Medical (50,000 Branch unit) capsule ergocalcife 2021-0 Yes [id number] Take 1 [facility] rol, 9-07 capsule by ity of vitamin d2, 00:00: mouth [place] 1,250 mcg 00 weekly. Medical (50,000 Branch unit) capsule ergocalcife 2021-0 Yes [id number] Take 1 [facility] rol, 9-07 capsule by ity of vitamin d2, 00:00: mouth [place] 1,250 mcg 00 weekly. Medical (50,000 Branch unit) capsule ergocalcife 2021-0 Yes [id number] Take 1 [facility] rol, 9-07 capsule by ity of vitamin d2, 00:00: mouth [place] 1,250 mcg 00 weekly. Medical (50,000 Branch unit) capsule ergocalcife 2021-0 Yes [id number] Take 1 [facility] rol, 9-07 capsule by ity of vitamin d2, 00:00: mouth [place] 1,250 mcg 00 weekly. Medical (50,000 Branch unit) capsule ergocalcife 2021-0 Yes [id number] Take 1 [facility] rol, 9-07 capsule by ity of vitamin d2, 00:00: mouth [place] 1,250 mcg 00 weekly. Medical (50,000 Branch unit) capsule ergocalcife 2021-0 Yes [id number] Take 1 Univers rol, 9-07 capsule by ity of vitamin d2, 00:00: mouth [place] 1,250 mcg 00 weekly. Medical (50,000 Branch unit) capsule ergocalcife 2021-0 Yes [id number] Take 1 [facility] rol, 9-07 capsule by ity of vitamin d2, 00:00: mouth [place] 1,250 mcg 00 weekly. Medical (50,000 Branch unit) capsule ergocalcife 2021-0 Yes [id number] Take 1 [facility] rol, 9-07 capsule by ity of vitamin d2, 00:00: mouth [place] 1,250 mcg 00 weekly. Medical (50,000 Branch unit) capsule ergocalcife 2021-0 Yes [id number] Take 1 [facility] rol, 9-07 capsule by ity of vitamin d2, 00:00: mouth [place] 1,250 mcg 00 weekly. Medical (50,000 Branch unit) capsule ergocalcife 2021-0 Yes [id number] Take 1 [facility] rol, 9-07 capsule by ity of vitamin d2, 00:00: mouth [place] 1,250 mcg 00 weekly. Medical (50,000 Branch unit) capsule ergocalcife 2021-0 Yes [id number] Take 1 [facility] rol, 9-07 capsule by ity of vitamin d2, 00:00: mouth [place] 1,250 mcg 00 weekly. Medical (50,000 Branch unit) capsule ergocalcife 2021-0 Yes [id number] Take 1 [facility] rol, 9-07 capsule by ity of vitamin d2, 00:00: mouth [place] 1,250 mcg 00 weekly. Medical (50,000 Branch unit) capsule ergocalcife 2021-0 Yes [id number] Take 1 [facility] rol, 9-07 capsule by ity of vitamin d2, 00:00: mouth [place] 1,250 mcg 00 weekly. Medical (50,000 Branch unit) capsule ergocalcife 2021-0 Yes [id number] Take 1 [facility] rol, 9-07 capsule by ity of vitamin d2, 00:00: mouth [place] 1,250 mcg 00 weekly. Medical (50,000 Branch unit) capsule ergocalcife 2021-0 Yes [id number] Take 1 [facility] rol, 9-07 capsule by ity of vitamin d2, 00:00: mouth [place] 1,250 mcg 00 weekly. Medical (50,000 Branch unit) capsule ergocalcife 2021-0 Yes [id number] Take 1 Univers rol, 9-07 capsule by ity of vitamin d2, 00:00: mouth [place] 1,250 mcg 00 weekly. Medical (50,000 Branch unit) capsule ergocalcife 2021-0 Yes [id number] Take 1 Univers rol, 9-07 capsule by ity of vitamin d2, 00:00: mouth [place] 1,250 mcg 00 weekly. Medical (50,000 Branch unit) capsule ergocalcife 2021-0 Yes [id number] Take 1 Univers rol, 9-07 capsule by ity of vitamin d2, 00:00: mouth [place] 1,250 mcg 00 weekly. Medical (50,000 Branch unit) capsule ergocalcife 2021-0 Yes [id number] Take 1 [facility] rol, 9-07 capsule by ity of vitamin d2, 00:00: mouth [place] 1,250 mcg 00 weekly. Medical (50,000 Branch unit) capsule ergocalcife 2021-0 Yes [id number] Take 1 [facility] rol, 9-07 capsule by ity of vitamin d2, 00:00: mouth [place] 1,250 mcg 00 weekly. Medical (50,000 Branch unit) capsule ergocalcife 2021-0 Yes [id number] Take 1 [facility] rol, 9-07 capsule by ity of vitamin d2, 00:00: mouth [place] 1,250 mcg 00 weekly. Medical (50,000 Branch unit) capsule ergocalcife 2021-0 Yes [id number] Take 1 [facility] rol, 9-07 capsule by ity of vitamin d2, 00:00: mouth [place] 1,250 mcg 00 weekly. Medical (50,000 Branch unit) capsule ergocalcife 2021-0 Yes [id number] Take 1 Univers rol, 9-07 capsule by ity of vitamin d2, 00:00: mouth [place] 1,250 mcg 00 weekly. Medical (50,000 Branch unit) capsule ergocalcife 2021-0 Yes [id number] Take 1 [facility] rol, 9-07 capsule by ity of vitamin d2, 00:00: mouth [place] 1,250 mcg 00 weekly. Medical (50,000 Branch unit) capsule ergocalcife 2021-0 Yes [id number] Take 1 [facility] rol, 9-07 capsule by ity of vitamin d2, 00:00: mouth [place] 1,250 mcg 00 weekly. Medical (50,000 Branch unit) capsule ergocalcife 2021-0 Yes [id number] Take 1 [facility] rol, 9-07 capsule by ity of vitamin d2, 00:00: mouth [place] 1,250 mcg 00 weekly. Medical (50,000 Branch unit) capsule ergocalcife 2021-0 Yes [id number] Take 1 [facility] rol, 9-07 capsule by ity of vitamin d2, 00:00: mouth [place] 1,250 mcg 00 weekly. Medical (50,000 Branch unit) capsule ergocalcife 2021-0 Yes [id number] Take 1 [facility] rol, 9-07 capsule by ity of vitamin d2, 00:00: mouth [place] 1,250 mcg 00 weekly. Medical (50,000 Branch unit) capsule ergocalcife 2021-0 Yes [id number] Take 1 [facility] rol, 9-07 capsule by ity of vitamin d2, 00:00: mouth [place] 1,250 mcg 00 weekly. Medical (50,000 Branch unit) capsule ergocalcife 2021-0 Yes [id number] Take 1 [facility] rol, 9-07 capsule by ity of vitamin d2, 00:00: mouth [place] 1,250 mcg 00 weekly. Medical (50,000 Branch unit) capsule ergocalcife 2021-0 Yes [id number] Take 1 [facility] rol, 9-07 capsule by ity of vitamin d2, 00:00: mouth [place] 1,250 mcg 00 weekly. Medical (50,000 Branch unit) capsule ergocalcife 2021-0 Yes [id number] Take 1 [facility] rol, 9-07 capsule by ity of vitamin d2, 00:00: mouth [place] 1,250 mcg 00 weekly. Medical (50,000 Branch unit) capsule ergocalcife 2021-0 Yes [id number] Take 1 [facility] rol, 9-07 capsule by ity of vitamin d2, 00:00: mouth [place] 1,250 mcg 00 weekly. Medical (50,000 Branch unit) capsule ergocalcife 2021-0 Yes [id number] Take 1 [facility] rol, 9-07 capsule by ity of vitamin d2, 00:00: mouth [place] 1,250 mcg 00 weekly. Medical (50,000 Branch unit) capsule ergocalcife 2021-0 Yes [id number] Take 1 [facility] rol, 9-07 capsule by ity of vitamin d2, 00:00: mouth [place] 1,250 mcg 00 weekly. Medical (50,000 Branch unit) capsule ergocalcife 2021-0 Yes [id number] Take 1 [facility] rol, 9-07 capsule by ity of vitamin d2, 00:00: mouth [place] 1,250 mcg 00 weekly. Medical (50,000 Branch unit) capsule ergocalcife 2021-0 Yes [id number] Take 1 [facility] rol, 9-07 capsule by ity of vitamin d2, 00:00: mouth [place] 1,250 mcg 00 weekly. Medical (50,000 Branch unit) capsule ergocalcife 2021-0 Yes [id number] Take 1 [facility] rol, 9-07 capsule by ity of vitamin d2, 00:00: mouth [place] 1,250 mcg 00 weekly. Medical (50,000 Branch unit) capsule ergocalcife 2021-0 Yes [id number] Take 1 [facility] rol, 9-07 capsule by ity of vitamin d2, 00:00: mouth [place] 1,250 mcg 00 weekly. Medical (50,000 Branch unit) capsule ergocalcife 2021-0 Yes [id number] Take 1 [facility] rol, 9-07 capsule by ity of vitamin d2, 00:00: mouth [place] 1,250 mcg 00 weekly. Medical (50,000 Branch unit) capsule ergocalcife 2021-0 Yes [id number] Take 1 [facility] rol, 9-07 capsule by ity of vitamin d2, 00:00: mouth [place] 1,250 mcg 00 weekly. Medical (50,000 Branch unit) capsule ergocalcife 2021-0 Yes [id number] Take 1 [facility] rol, 9-07 capsule by ity of vitamin d2, 00:00: mouth [place] 1,250 mcg 00 weekly. Medical (50,000 Branch unit) capsule ergocalcife 2021-0 Yes [id number] Take 1 [facility] rol, 9-07 capsule by ity of vitamin d2, 00:00: mouth [place] 1,250 mcg 00 weekly. Medical (50,000 Branch unit) capsule ergocalcife 2021-0 Yes [id number] Take 1 [facility] rol, 9-07 capsule by ity of vitamin d2, 00:00: mouth [place] 1,250 mcg 00 weekly. Medical (50,000 Branch unit) capsule ergocalcife 2021-0 Yes [id number] Take 1 [facility] rol, 9-07 capsule by ity of vitamin d2, 00:00: mouth [place] 1,250 mcg 00 weekly. Medical (50,000 Branch unit) capsule ergocalcife 2021-0 Yes [id number] Take 1 [facility] rol, 9-07 capsule by ity of vitamin d2, 00:00: mouth [place] 1,250 mcg 00 weekly. Medical (50,000 Branch unit) capsule ergocalcife 2021-0 Yes [id number] Take 1 Univers rol, 9-07 capsule by ity of vitamin d2, 00:00: mouth [place] 1,250 mcg 00 weekly. Medical (50,000 Branch unit) capsule ergocalcife 2021-0 Yes [id number] Take 1 Univers rol, 9-07 capsule by ity of vitamin d2, 00:00: mouth [place] 1,250 mcg 00 weekly. Medical (50,000 Branch unit) capsule ergocalcife 2021-0 Yes [id number] Take 1 Univers rol, 9-07 capsule by ity of vitamin d2, 00:00: mouth [place] 1,250 mcg 00 weekly. Medical (50,000 Branch unit) capsule ergocalcife 2021-0 Yes [id number] Take 1 Univers rol, 9-07 capsule by ity of vitamin d2, 00:00: mouth [place] 1,250 mcg 00 weekly. Medical (50,000 Branch unit) capsule lisinopril 0 Yes 40mg Take 40 mg U nivers 40 mg 9-01 by mouth ity of tablet 11:11: daily. [place] 05 [facility] amLODIPine 0 Yes 10mg Take 10 mg U nivers (NORVASC) 9-01 by mouth ity of 10 mg 11:11: daily. [place] tablet 05 [facility] lisinopril 0 Yes 40mg Take 40 mg U nivers 40 mg - by mouth ity of tablet 11:11: daily. [place] 05 [facility] amLODIPine 2020-0 Yes 10mg Take 10 mg U nivers (NORVASC) 9-01 by mouth ity of 10 mg 11:11: daily. [place] tablet 05 [facility] amLODIPine 0 Yes 10mg Take 10 mg U nivers (NORVASC) 9- by mouth ity of 10 mg 11:11: daily. [place] tablet 05 [facility] amLODIPine 2020-0 Yes 10mg Take 10 mg U nivers (NORVASC) 9- by mouth ity of 10 mg 11:11: daily. [place] tablet 05 [facility] amLODIPine 2020-0 Yes 10mg Take 10 mg U nivers (NORVASC) 9-01 by mouth ity of 10 mg 11:11: daily. [place] tablet 05 [facility] amLODIPine 0 Yes 10mg Take 10 mg U nivers (NORVASC) 9- by mouth ity of 10 mg 11:11: daily. [place] tablet 05 [facility] amLODIPine 2020-0 Yes 10mg Take 10 mg U nivers (NORVASC) 9-01 by mouth ity of 10 mg 11:11: daily. [place] tablet 05 [facility] amLODIPine 2020-0 Yes 10mg Take 10 mg U nivers (NORVASC) 9-01 by mouth ity of 10 mg 11:11: daily. [place] tablet 05 [facility] amLODIPine 2020-0 Yes 10mg Take 10 mg U nivers (NORVASC) 9-01 by mouth ity of 10 mg 11:11: daily. [place] tablet 05 [facility] amLODIPine 2020-0 Yes 10mg Take 10 mg U nivers (NORVASC) 9-01 by mouth ity of 10 mg 11:11: daily. [place] tablet 05 [facility] amLODIPine 2020-0 Yes 10mg Take 10 [...] 10 mg 11:11: daily. [place] tablet 05 [facility] amLODIPine 0 Yes [...] 10 mg 11:11: daily. [place] tablet 05 [facility] amLODIPine 0 Yes 10mg Take 10 mg U nivers (NORVASC) 9-01 by mouth ity of 10 mg 11:11: daily. [place] tablet 05 [facility] amLODIPine 0 Yes 10mg Take 10 mg U nivers (NORVASC) 9-01 by mouth ity of 10 mg 11:11: daily. [place] tablet 05 [facility] amLODIPine 0 Yes 10mg Take 10 mg U nivers (NORVASC) 9-01 by mouth ity of 10 mg 11:11: daily. [place] tablet 05 [facility] amLODIPine 0 Yes 10mg Take 10 mg U nivers (NORVASC) 9-01 by mouth ity of 10 mg 11:11: daily. [place] tablet 05 [facility] amLODIPine 0 Yes 10mg Take 10 mg U nivers (NORVASC) 9-01 by mouth ity of 10 mg 11:11: daily. [place] tablet 05 [facility] amLODIPine 0 Yes 10mg Take 10 mg U nivers (NORVASC) 9-01 by mouth ity of 10 mg 11:11: daily. [place] tablet 05 [facility] amLODIPine 0 Yes 10mg Take 10 mg U nivers (NORVASC) 9-01 by mouth ity of 10 mg 11:11: daily. [place] tablet 05 [facility] amLODIPine 0 Yes 10mg Take 10 mg U nivers (NORVASC) 9-01 by mouth ity of 10 mg 11:11: daily. [facility] 05 [facility] aspirin 81 2020-0 Yes 81mg Take 81 mg U nivers mg chewable 9-01 by mouth ity of tablet 11:11: daily. [address] aspirin 81 2020-0 Yes 81mg Take 81 mg U nivers mg chewable 9-01 by mouth ity of tablet 11:11: daily. [address] aspirin 81 2020-0 Yes 81mg Take 81 mg U nivers mg chewable 9-01 by mouth ity of tablet 11:11: daily. [address] aspirin 81 2021-0 Yes 81mg Take 81 mg U nivers mg chewable 9-01 by mouth ity of tablet 11:11: daily. [address] aspirin 81 2021-0 Yes 81mg Take 81 mg U nivers mg chewable 9-01 by mouth ity of tablet 11:11: daily. [address] aspirin 81 2021-0 Yes 81mg Take 81 mg U nivers mg chewable 9-01 by mouth ity of tablet 11:11: daily. [address] aspirin 81 2021-0 Yes 81mg Take 81 mg U nivers mg chewable 9-01 by mouth ity of tablet 11:11: daily. [address] aspirin 81 2021-0 Yes 81mg Take 81 mg U nivers mg chewable 9-01 by mouth ity of tablet 11:11: daily. [address] aspirin 81 2021-0 Yes 81mg Take 81 mg U nivers mg chewable 9-01 by mouth ity of tablet 11:11: daily. [address] aspirin 81 202-0 Yes 81mg Take 81 mg U nivers mg chewable 9-01 by mouth ity of tablet 11:11: daily. [address] aspirin 81 2021-0 Yes 81mg Take 81 mg U nivers mg chewable 9-01 by mouth ity of tablet 11:11: daily. [address] aspirin 81 2021-0 Yes 81mg Take 81 mg U nivers mg chewable 9-01 by mouth ity of tablet 11:11: daily. [address] aspirin 81 2021-0 Yes 81mg Take 81 mg U nivers mg chewable 9-01 by mouth ity of tablet 11:11: daily. [address] aspirin 81 2021-0 Yes 81mg Take 81 mg U nivers mg chewable 9-01 by mouth ity of tablet 11:11: daily. [address] aspirin 81 2021-0 Yes 81mg Take 81 mg U nivers mg chewable 9-01 by mouth ity of tablet 11:11: daily. [address] aspirin 81 2021-0 Yes 81mg Take 81 mg U nivers mg chewable 9-01 by mouth ity of tablet 11:11: daily. [address] aspirin 81 2021-0 Yes 81mg Take 81 mg U nivers mg chewable 9-01 by mouth ity of tablet 11:11: daily. [address] aspirin 81 202-0 Yes 81mg Take 81 mg U nivers mg chewable 9-01 by mouth ity of tablet 11:11: daily. [address] aspirin 81 202-0 Yes 81mg Take 81 mg U nivers mg chewable 9-01 by mouth ity of tablet 11:11: daily. [address] aspirin 81 202-0 Yes 81mg Take 81 mg U nivers mg chewable 9-01 by mouth ity of tablet 11:11: daily. [address] aspirin 81 202-0 Yes 81mg Take 81 mg U nivers mg chewable 9-01 by mouth ity of tablet 11:11: daily. [address] aspirin 81 202-0 Yes 81mg Take 81 mg U nivers mg chewable 9-01 by mouth ity of tablet 11:11: daily. [address] aspirin 81 2020-0 Yes 81mg Take 81 mg U nivers mg chewable 9-01 by mouth ity of tablet 11:11: daily. [address] aspirin 81 202-0 Yes 81mg Take 81 mg U nivers mg chewable 9-01 by mouth ity of tablet 11:11: daily. [address] aspirin 81 202-0 Yes 81mg Take 81 mg U nivers mg chewable 9-01 by mouth ity of tablet 11:11: daily. [address] aspirin 81 2020-0 Yes 81mg Take 81 mg U nivers mg chewable 9-01 by mouth ity of tablet 11:11: daily. [address] aspirin 81 202-0 Yes 81mg Take 81 mg U nivers mg chewable 9-01 by mouth ity of tablet 11:11: daily. [address] aspirin 81 2021-0 Yes 81mg Take 81 mg U nivers mg chewable 9-01 by mouth ity of tablet 11:11: daily. [address] aspirin 81 2021-0 Yes 81mg Take 81 mg U nivers mg chewable 9-01 by mouth ity of tablet 11:11: daily. [address] aspirin 81 202-0 Yes 81mg Take 81 mg U nivers mg chewable 9-01 by mouth ity of tablet 11:11: daily. [address] aspirin 81 202-0 Yes 81mg Take 81 mg U nivers mg chewable 9-01 by mouth ity of tablet 11:11: daily. [address] aspirin 81 2021-0 Yes 81mg Take 81 mg U nivers mg chewable 9-01 by mouth ity of tablet 11:11: daily. [address] aspirin 81 2021-0 Yes 81mg Take 81 mg U nivers mg chewable 9-01 by mouth ity of tablet 11:11: daily. [address] aspirin 81 2021-0 Yes 81mg Take 81 mg U nivers mg chewable 9-01 by mouth ity of tablet 11:11: daily. [address] aspirin 81 2021-0 Yes 81mg Take 81 mg U nivers mg chewable 9-01 by mouth ity of tablet 11:11: daily. [address] aspirin 81 202-0 Yes 81mg Take 81 mg U nivers mg chewable 9-01 by mouth ity of tablet 11:11: daily. [address] aspirin 81 202-0 Yes 81mg Take 81 mg U nivers mg chewable 9-01 by mouth ity of tablet 11:11: daily. [address] aspirin 81 2021-0 Yes 81mg Take 81 mg U nivers mg chewable 9-01 by mouth ity of tablet 11:11: daily. [address] aspirin 81 2021-0 Yes 81mg Take 81 mg U nivers mg chewable 9-01 by mouth ity of tablet 11:11: daily. [address] aspirin 81 2021-0 Yes 81mg Take 81 mg U nivers mg chewable 9-01 by mouth ity of tablet 11:11: daily. [address] aspirin 81 2021-0 Yes 81mg Take 81 mg U nivers mg chewable 9-01 by mouth ity of tablet 11:11: daily. [address] aspirin 81 2021-0 Yes 81mg Take 81 mg U nivers mg chewable 9-01 by mouth ity of tablet 11:11: daily. [address] aspirin 81 2021-0 Yes 81mg Take 81 mg U nivers mg chewable 9-01 by mouth ity of tablet 11:11: daily. [address] aspirin 81 2021-0 Yes 81mg Take 81 mg U nivers mg chewable 9-01 by mouth ity of tablet 11:11: daily. [address] Branch aspirin 81 202-0 Yes 81mg Take 81 mg U nivers mg chewable 9-01 by mouth ity of tablet 11:11: daily. [address] aspirin 81 2021-0 Yes 81mg Take 81 mg U nivers mg chewable 9-01 by mouth ity of tablet 11:11: daily. [address] aspirin 81 202-0 Yes 81mg Take 81 mg U nivers mg chewable 9-01 by mouth ity of tablet 11:11: daily. [address] aspirin 81 202-0 Yes 81mg Take 81 mg U nivers mg chewable 9-01 by mouth ity of tablet 11:11: daily. [address] aspirin 81 202-0 Yes 81mg Take 81 mg U nivers mg chewable 9-01 by mouth ity of tablet 11:11: daily. [address] aspirin 81 2020-0 Yes 81mg Take 81 mg U nivers mg chewable 9-01 by mouth ity of tablet 11:11: daily. [address] aspirin 81 202-0 Yes 81mg Take 81 mg U nivers mg chewable 9-01 by mouth ity of tablet 11:11: daily. [address] aspirin 81 2021-0 Yes 81mg Take 81 mg U nivers mg chewable 9-01 by mouth ity of tablet 11:11: daily. [address] aspirin 81 202-0 Yes 81mg Take 81 mg U nivers mg chewable 9-01 by mouth ity of tablet 11:11: daily. [address] aspirin 81 202-0 Yes 81mg Take 81 mg U nivers mg chewable 9-01 by mouth ity of tablet 11:11: daily. [address] aspirin 81 2021-0 Yes 81mg Take 81 mg U nivers mg chewable 9-01 by mouth ity of tablet 11:11: daily. [address] aspirin 81 2021-0 Yes 81mg Take 81 mg U nivers mg chewable 9-01 by mouth ity of tablet 11:11: daily. [address] aspirin 81 2021-0 Yes 81mg Take 81 mg U nivers mg chewable 9-01 by mouth ity of tablet 11:11: daily. [address] aspirin 81 202-0 Yes 81mg Take 81 mg U nivers mg chewable 9-01 by mouth ity of tablet 11:11: daily. [address] Branch aspirin 81 2021-0 Yes 81mg Take 81 mg U nivers mg chewable 9-01 by mouth ity of tablet 11:11: daily. [address] aspirin 81 202-0 Yes 81mg Take 81 mg U nivers mg chewable 9-01 by mouth ity of tablet 11:11: daily. [address] aspirin 81 202-0 Yes 81mg Take 81 mg U nivers mg chewable 9-01 by mouth ity of tablet 11:11: daily. [address] aspirin 81 2021-0 Yes 81mg Take 81 mg U nivers mg chewable 9-01 by mouth ity of tablet 11:11: daily. [address] aspirin 81 202-0 Yes 81mg Take 81 mg U nivers mg chewable 9-01 by mouth ity of tablet 11:11: daily. [address] aspirin 81 202-0 Yes 81mg Take 81 mg U nivers mg chewable 9-01 by mouth ity of tablet 11:11: daily. [address] aspirin 81 2021-0 Yes 81mg Take 81 mg U nivers mg chewable 9-01 by mouth ity of tablet 11:11: daily. [address] aspirin 81 2021-0 Yes 81mg Take 81 mg U nivers mg chewable 9-01 by mouth ity of tablet 11:11: daily. [address] aspirin 81 202-0 Yes 81mg Take 81 mg U nivers mg chewable 9-01 by mouth ity of tablet 11:11: daily. [address] aspirin 81 202-0 Yes 81mg Take 81 mg U nivers mg chewable 9-01 by mouth ity of tablet 11:11: daily. [address] aspirin 81 2021-0 Yes 81mg Take 81 mg U nivers mg chewable 9-01 by mouth ity of tablet 11:11: daily. [address] Immunizations Ordered Filled Immunization Date Status Comments [facility] e Immunization Name Name SARS-COV-2 COVID-19 2022-05-20 Completed Unive rsity of VACCINE, BIVALENT 00:00:00 [place] [facility] (MODERNA BOOST[facility]) Branch SARS-COV-2 COVID-19 2022-05-20 Completed Unive rsity of VACCINE, BIVALENT 00:00:00 [place] [facility] (MODERNA BOOSTER) [facility] SARS-COV-2 COVID-19 2022-05-20 Completed Unive rsity of VACCINE, BIVALENT 00:00:00 [facility] edical (MODERNA BOOSTER) Branch SARS-COV-2 COVID-19 2022-05-20 Completed Unive rsity of VACCINE, BIVALENT 00:00:00 [facility] edical (MODERNA BOOSTER) Branch SARS-COV-2 COVID-19 2022-05-20 Completed Unive rsity of VACCINE, BIVALENT 00:00:00 [facility] edical (MODERNA BOOSTER) Branch SARS-COV-2 COVID-19 2022-05-20 Completed Unive rsity of VACCINE, BIVALENT 00:00:00 [facility] edical (MODERNA BOOSTER) Branch SARS-COV-2 COVID-19 2022-05-20 Completed Unive rsity of VACCINE, BIVALENT 00:00:00 [facility] edical (MODERNA BOOSTER) Branch SARS-COV-2 COVID-19 2022-05-20 Completed Unive rsity of VACCINE, BIVALENT 00:00:00 [facility] edical (MODERNA BOOSTER) Branch SARS-COV-2 COVID-19 2022-05-20 Completed Unive rsity of VACCINE, BIVALENT 00:00:00 [facility] edical (MODERNA BOOSTER) Branch SARS-COV-2 COVID-19 2022-05-20 Completed Unive rsity of VACCINE, BIVALENT 00:00:00 [facility] edical (MODERNA BOOSTER) Branch SARS-COV-2 COVID-19 2022-05-20 Completed Unive rsity of VACCINE, BIVALENT 00:00:00 [facility] edical (MODERNA BOOSTER) Branch SARS-COV-2 COVID-19 2022-05-20 Completed Unive rsity of VACCINE, BIVALENT 00:00:00 [facility] edical (MODERNA BOOSTER) Branch SARS-COV-2 COVID-19 2022-05-20 Completed Unive rsity of VACCINE, BIVALENT 00:00:00 [place] [facility] (MODERNA BOOSTER) Branch SARS-COV-2 COVID-19 2022-05-20 Completed Unive rsity of VACCINE, BIVALENT 00:00:00 [facility] edical (MODERNA BOOSTER) Branch SARS-COV-2 COVID-19 2022-05-20 [...] Unive rsity of VACCINE, BIVALENT 00:00:00 [facility] edical (MODERNA BOOSTER) Branch SARS-COV-2 COVID-19 2022-05-20 Completed Unive rsity of VACCINE, BIVALENT 00:00:00 [facility] edical (MODERNA BOOSTER) Branch SARS-COV-2 COVID-19 2022-05-20 Completed Unive rsity of VACCINE, BIVALENT 00:00:00 [facility] edical (MODERNA BOOSTER) Branch SARS-COV-2 COVID-19 2022-05-20 Completed Unive rsity of VACCINE, BIVALENT 00:00:00 [facility] edical (MODERNA BOOSTER) Branch SARS-COV-2 COVID-19 2022-05-20 Completed Unive rsity of VACCINE, BIVALENT 00:00:00 [facility] edical (MODERNA BOOSTER) Branch SARS-COV-2 COVID-19 2022-05-20 Completed Unive rsity of VACCINE, BIVALENT 00:00:00 [facility] edical (MODERNA BOOSTER) Branch SARS-COV-2 COVID-19 2022-05-20 Completed Unive rsity of VACCINE, BIVALENT 00:00:00 [facility] edical (MODERNA BOOSTER) Branch Influenza Virus 2022-05-19 Completed Universit y of Vaccine [facility], 00:00:00 [place] [facility] Preserv and ABX Branch Free 6 MO-64 YRS Influenza Virus 2022-05-19 Completed [facility]it y [facility]ine [facility], 00:00:00 [place] [facility] Preserv and ABX Branch Free [...] [facility]it y of Vaccine [facility], 00:00:00 [place] [facility] Preserv and ABX Branch Free 6 MO-64 YRS Influenza Virus 2022-05-19 Completed [facility]it [facility], 00:00:00 [place] [facility] Preserv and ABX Branch Free [...] [facility]it y of Vaccine [facility], 00:00:00 [place] [facility] Preserv and ABX Branch Free [...] Universit y of Vaccine [facility], 00:00:00 [place] [facility] Preserv and ABX Branch Free [...] [facility]it y of Vaccine [facility], 00:00:00 [place] [facility] Preserv and ABX Branch Free 6 MO-64 YRS (FLUCELVAX) SARS-COV-2 COVID-19 2020-09-15 Completed Unive rsity of VACCINE - (MODERNA) 00:00:00 [facility] SARS-COV-2 COVID-19 2020-09-15 Completed Unive rsity of VACCINE - (MODERNA) 00:00:00 [facility] SARS-COV-2 COVID-19 2020-09-15 Completed Unive rsity of VACCINE - (MODERNA) 00:00:00 [facility] SARS-COV-2 COVID-19 2020-09-15 Completed Unive rsity of VACCINE - (MODERNA) 00:00:00 [facility] Branch SARS-COV-2 COVID-19 2020-09-15 Completed Unive rsity of VACCINE - (MODERNA) 00:00:00 [facility] SARS-COV-2 COVID-19 2020-09-15 Completed Unive rsity of VACCINE - (MODERNA) 00:00:00 [facility] SARS-COV-2 COVID-19 2020-09-15 Completed Unive rsity of VACCINE - (MODERNA) 00:00:00 [facility] SARS-COV-2 COVID-19 2020-09-15 Completed Unive rsity of VACCINE - (MODERNA) 00:00:00 [facility] SARS-COV-2 COVID-19 2020-09-15 Completed Unive rsity of VACCINE - (MODERNA) 00:00:00 [facility] SARS-COV-2 COVID-19 2020-09-15 Completed Unive rsity of VACCINE - (MODERNA) 00:00:00 [facility] SARS-COV-2 COVID-19 2020-09-15 Completed Unive rsity of VACCINE - (MODERNA) 00:00:00 [facility] SARS-COV-2 COVID-19 2020-09-15 Completed Unive rsity of VACCINE - (MODERNA) 00:00:00 [facility] SARS-COV-2 COVID-19 2020-09-15 Completed Unive rsity of VACCINE - (MODERNA) 00:00:00 [facility] SARS-COV-2 COVID-19 2020-09-15 Completed Unive rsity of VACCINE - (MODERNA) 00:00:00 [facility] SARS-COV-2 COVID-19 2020-09-15 Completed Unive rsity of VACCINE - (MODERNA) 00:00:00 [facility] SARS-COV-2 COVID-19 2020-09-15 Completed Unive rsity of VACCINE - (MODERNA) 00:00:00 [facility] SARS-COV-2 COVID-19 2020-09-15 Completed Unive rsity of VACCINE - (MODERNA) 00:00:00 [facility] SARS-COV-2 COVID-19 2020-09-15 Completed Unive rsity of VACCINE - (MODERNA) 00:00:00 [facility] SARS-COV-2 COVID-19 2020-09-15 Completed Unive rsity of VACCINE - (MODERNA) 00:00:00 [facility] SARS-COV-2 COVID-19 2020-09-15 Completed Unive rsity of VACCINE - (MODERNA) 00:00:00 [facility] SARS-COV-2 COVID-19 2020-09-15 Completed Unive rsity of VACCINE - (MODERNA) 00:00:00 [facility] SARS-COV-2 COVID-19 2020-09-15 Completed Unive rsity of VACCINE - (MODERNA) 00:00:00 [facility] SARS-COV-2 COVID-19 2020-09-15 Completed Unive rsity of VACCINE - (MODERNA) 00:00:00 [facility] SARS-COV-2 COVID-19 2020-09-15 Completed Unive rsity of VACCINE - (MODERNA) 00:00:00 [facility] SARS-COV-2 COVID-19 2020-09-15 Completed Unive rsity of VACCINE - (MODERNA) 00:00:00 [facility] SARS-COV-2 COVID-19 2020-09-15 Completed Unive rsity of VACCINE - (MODERNA) 00:00:00 [facility] SARS-COV-2 COVID-19 2020-09-15 Completed Unive rsity of VACCINE - (MODERNA) 00:00:00 [facility] SARS-COV-2 COVID-19 2020-09-15 Completed Unive rsity of VACCINE - (MODERNA) 00:00:00 [facility] SARS-COV-2 COVID-19 2020-09-15 Completed Unive rsity of VACCINE - (MODERNA) 00:00:00 [facility] SARS-COV-2 COVID-19 2020-09-15 Completed Unive rsity of VACCINE - (MODERNA) 00:00:00 [facility] SARS-COV-2 COVID-19 2020-09-15 Completed Unive rsity of VACCINE - (MODERNA) 00:00:00 [facility] SARS-COV-2 COVID-19 2020-09-15 Completed Unive rsity of VACCINE - (MODERNA) 00:00:00 [facility] SARS-COV-2 COVID-19 2020-09-15 Completed Unive rsity of VACCINE - (MODERNA) 00:00:00 [facility] SARS-COV-2 COVID-19 2020-09-15 Completed Unive rsity of VACCINE - (MODERNA) 00:00:00 [facility] SARS-COV-2 COVID-19 2020-09-15 Completed Unive rsity of VACCINE - (MODERNA) 00:00:00 [facility] SARS-COV-2 COVID-19 2020-09-15 Completed Unive rsity of VACCINE - (MODERNA) 00:00:00 [facility] SARS-COV-2 COVID-19 2020-09-15 Completed Unive rsity of VACCINE - (MODERNA) 00:00:00 [facility] SARS-COV-2 COVID-19 2020-09-15 Completed Unive rsity of VACCINE - (MODERNA) 00:00:00 [facility] SARS-COV-2 COVID-19 2020-09-15 Completed Unive rsity of VACCINE - (MODERNA) 00:00:00 [facility] SARS-COV-2 COVID-19 2020-09-15 Completed Unive rsity of VACCINE - (MODERNA) 00:00:00 [facility] SARS-COV-2 COVID-19 2020-09-15 Completed Unive rsity of VACCINE - (MODERNA) 00:00:00 [facility] SARS-COV-2 COVID-19 2020-09-15 Completed Unive rsity of VACCINE - (MODERNA) 00:00:00 [facility] SARS-COV-2 COVID-19 2020-09-15 Completed Unive rsity of VACCINE - (MODERNA) 00:00:00 [facility] SARS-COV-2 COVID-19 2020-09-15 Completed Unive rsity of VACCINE - (MODERNA) 00:00:00 [facility] SARS-COV-2 COVID-19 2020-09-15 Completed Unive rsity of VACCINE - (MODERNA) 00:00:00 [facility] SARS-COV-2 COVID-19 2020-09-15 Completed Unive rsity of VACCINE - (MODERNA) 00:00:00 [facility] SARS-COV-2 COVID-19 2020-08-21 Completed Unive rsity of VACCINE - (MODERNA) 00:00:00 [facility] SARS-COV-2 COVID-19 2020-08-21 Completed Unive rsity of VACCINE - (MODERNA) 00:00:00 [facility] SARS-COV-2 COVID-19 2020-08-21 Completed Unive rsity of VACCINE - (MODERNA) 00:00:00 [facility] SARS-COV-2 COVID-19 2020-08-21 Completed Unive rsity of VACCINE - (MODERNA) 00:00:00 [facility] SARS-COV-2 COVID-19 2020-08-21 Completed Unive rsity of VACCINE - (MODERNA) 00:00:00 [facility] SARS-COV-2 COVID-19 2020-08-21 Completed Unive rsity of VACCINE - (MODERNA) 00:00:00 [facility] SARS-COV-2 COVID-19 2020-08-21 Completed Unive rsity of VACCINE - (MODERNA) 00:00:00 [facility] SARS-COV-2 COVID-19 2020-08-21 Completed Unive rsity of VACCINE - (MODERNA) 00:00:00 [facility] SARS-COV-2 COVID-19 2020-08-21 Completed Unive rsity of VACCINE - (MODERNA) 00:00:00 [facility] SARS-COV-2 COVID-19 2020-08-21 Completed Unive rsity of VACCINE - (MODERNA) 00:00:00 [facility] SARS-COV-2 COVID-19 2020-08-21 Completed Unive rsity of VACCINE - (MODERNA) 00:00:00 [facility] SARS-COV-2 COVID-19 2020-08-21 Completed Unive rsity of VACCINE - (MODERNA) 00:00:00 [facility] SARS-COV-2 COVID-19 2020-08-21 Completed Unive rsity of VACCINE - (MODERNA) 00:00:00 [facility] SARS-COV-2 COVID-19 2020-08-21 Completed Unive rsity of VACCINE - (MODERNA) 00:00:00 [facility] SARS-COV-2 COVID-19 2020-08-21 Completed Unive rsity of VACCINE - (MODERNA) 00:00:00 [facility] SARS-COV-2 COVID-19 2020-08-21 Completed Unive rsity of VACCINE - (MODERNA) 00:00:00 [facility] SARS-COV-2 COVID-19 2020-08-21 Completed Unive rsity of VACCINE - (MODERNA) 00:00:00 [facility] SARS-COV-2 COVID-19 2020-08-21 Completed Unive rsity of VACCINE - (MODERNA) 00:00:00 [facility] SARS-COV-2 COVID-19 2020-08-21 Completed Unive rsity of VACCINE - (MODERNA) 00:00:00 [facility] SARS-COV-2 COVID-19 2020-08-21 Completed Unive rsity of VACCINE - (MODERNA) 00:00:00 [facility] SARS-COV-2 COVID-19 2020-08-21 Completed Unive rsity of VACCINE - (MODERNA) 00:00:00 [facility] SARS-COV-2 COVID-19 2020-08-21 Completed Unive rsity of VACCINE - (MODERNA) 00:00:00 [facility] SARS-COV-2 COVID-19 2020-08-21 Completed Unive rsity of VACCINE - (MODERNA) 00:00:00 [facility] SARS-COV-2 COVID-19 2020-08-21 Completed Unive rsity of VACCINE - (MODERNA) 00:00:00 [facility] SARS-COV-2 COVID-19 2020-08-21 Completed Unive rsity of VACCINE - (MODERNA) 00:00:00 [facility] SARS-COV-2 COVID-19 2020-08-21 Completed Unive rsity of VACCINE - (MODERNA) 00:00:00 [facility] SARS-COV-2 COVID-19 2020-08-21 Completed Unive rsity of VACCINE - (MODERNA) 00:00:00 [facility] SARS-COV-2 COVID-19 2020-08-21 Completed Unive rsity of VACCINE - (MODERNA) 00:00:00 [facility] SARS-COV-2 COVID-19 2020-08-21 Completed Unive rsity of VACCINE - (MODERNA) 00:00:00 [facility] SARS-COV-2 COVID-19 2020-08-21 Completed Unive rsity of VACCINE - (MODERNA) 00:00:00 [facility] SARS-COV-2 COVID-19 2020-08-21 Completed Unive rsity of VACCINE - (MODERNA) 00:00:00 [facility] SARS-COV-2 COVID-19 2020-08-21 Completed Unive rsity of VACCINE - (MODERNA) 00:00:00 [facility] SARS-COV-2 COVID-19 2020-08-21 Completed Unive rsity of VACCINE - (MODERNA) 00:00:00 [facility] SARS-COV-2 COVID-19 2020-08-21 Completed Unive rsity of VACCINE - (MODERNA) 00:00:00 [facility] SARS-COV-2 COVID-19 2020-08-21 Completed Unive rsity of VACCINE - (MODERNA) 00:00:00 [facility] SARS-COV-2 COVID-19 2020-08-21 Completed Unive rsity of VACCINE - (MODERNA) 00:00:00 [facility] SARS-COV-2 COVID-19 2020-08-21 Completed Unive rsity of VACCINE - (MODERNA) 00:00:00 [facility] SARS-COV-2 COVID-19 2020-08-21 Completed Unive rsity of VACCINE - (MODERNA) 00:00:00 [facility] SARS-COV-2 COVID-19 2020-08-21 Completed Unive rsity of VACCINE - (MODERNA) 00:00:00 [facility] SARS-COV-2 COVID-19 2020-08-21 Completed Unive rsity of VACCINE - (MODERNA) 00:00:00 [facility] SARS-COV-2 COVID-19 2020-08-21 Completed Unive rsity of VACCINE - (MODERNA) 00:00:00 [facility] SARS-COV-2 COVID-19 2020-08-21 Completed Unive rsity of VACCINE - (MODERNA) 00:00:00 [facility] SARS-COV-2 COVID-19 2020-08-21 Completed Unive rsity of VACCINE - (MODERNA) 00:00:00 [facility] SARS-COV-2 COVID-19 2020-08-21 Completed Unive rsity of VACCINE - (MODERNA) 00:00:00 [facility] SARS-COV-2 COVID-19 2020-08-21 Completed Unive rsity of VACCINE - (MODERNA) 00:00:00 [facility] SARS-COV-2 COVID-19 2020-08-21 Completed Unive rsity of VACCINE - (MODERNA) 00:00:00 [facility] Vital Signs Vital Name Observation Time Observation Value Comments Source Systolic blood 2023-02-13 15:34:00 144 mm[Hg] Univer sity of pressure [facility] Diastolic blood 2023-02-13 15:34:00 74 mm[Hg] Unive rsity of pressure [facility] Heart rate 2023-02-13 15:33:00 71 /min [facility] ty [facility] Body temperature 2023-02-13 15:33:00 36.22 [facility] ersity of [facility] Respiratory rate 2023-02-13 15:33:00 18 /min Univ ersity of [facility] Body height 2023-02-13 15:33:00 170.2 cm Universi ty [facility] Body weight 2023-02-13 15:33:00 68.856 kg Universi ty [facility] BMI 2023-02-13 15:33:00 23.78 kg/m2 [facility] Oxygen saturation in 2023-02-13 15:33:00 100 /min University Arterial blood by [facility] Pulse oximetry Branch Systolic blood 2022-10-19 14:28:00 184 mm[Hg] Univer sity of pressure [facility] Diastolic blood 2022-10-19 14:28:00 65 mm[Hg] Unive rsity of pressure [facility] Heart rate 2022-10-19 14:20:00 74 /min Universi ty of [facility] Body temperature 2022-10-19 14:20:00 36.44 [facility] ersity of [facility] Respiratory rate 2022-10-19 14:20:00 18 /min Univ ersity of [facility] Body height 2022-10-19 14:20:00 170.2 cm [facility] Body weight 2022-10-19 14:20:00 68.221 kg [facility] BMI 2022-10-19 14:20:00 23.56 kg/m2 [facility] Oxygen saturation in 2022-10-19 14:20:00 99 /min University of Arterial blood by [facility] Pulse oximetry Branch Systolic blood 2022-10-18 14:54:00 139 mm[Hg] [facility]iver [facility] Diastolic blood 2022-10-18 14:54:00 78 mm[Hg] Unive rsity of [facility] Heart rate 2022-10-18 14:54:00 63 /min [facility] Oxygen saturation in 2022-10-18 14:54:00 99 /min University of Arterial blood by [facility] Pulse oximetry Branch Body temperature 2022-10-18 14:53:00 36.39 Nehal Univ ers[facility] Body height 2022-10-18 14:53:00 170.2 cm [facility] Body weight 2022-10-18 14:53:00 67.767 kg [facility] BMI 2022-10-18 14:53:00 23.40 kg/m2 [facility] Systolic blood 2022-07-21 14:34:00 168 mm[Hg] [facility]iver [facility] Diastolic blood 2022-07-21 14:34:00 77 mm[Hg] Unive [facility] Heart rate 2022-07-21 14:28:00 59 /min [facility] Body height 2022-07-21 14:28:00 170.2 cm [facility] Body weight 2022-07-21 14:28:00 68.765 kg [facility] BMI 2022-07-21 14:28:00 23.74 kg/m2 [facility] Oxygen saturation in 2022-07-21 14:28:00 99 /min University of Arterial blood by [facility] Pulse oximetry Branch Systolic blood 2022-05-19 17:18:00 150 mm[Hg] Univer [facility] Diastolic blood 2022-05-19 17:18:00 69 mm[Hg] [facility]ive [facility] [place] [facility] [place] Heart rate 2022-05-19 17:17:00 58 /min [facility] [place] Body temperature 2022-05-19 17:17:00 37.11 Nehal Univ [facility] Body height 2022-05-19 17:17:00 170.2 cm [facility] Body weight 2022-05-19 17:17:00 68.04 kg [facility] BMI 2022-05-19 17:17:00 23.49 kg/m2 [facility] Oxygen saturation in 2022-05-19 17:17:00 98 /min [facility] Arterial blood by [facility] Pulse oximetry Branch Procedures Procedure Date / Time Performing Clinician Source Performed PHYSICIAN ORDERS 2023-03-10 05:01:00 Doctor Unamayraigned, [facility] [employer] [facility] ASSIGNMENT OF BENEFITS 2023-02-13 15:19:17 Doctor Indio, [facility] [employer] [facility] EXTERNAL PROVIDER RECORDS 2022-12-29 05:01:00 Doctor Unamayraigned, [facility] [employer] [facility] PHYSICIAN ORDERS 2022-12-12 05:01:00 Doctor Cristoferigned, [facility] [employer] [facility] PHYSICIAN ORDERS 2022-09-09 06:01:00 Doctor Indio, [facility] [employer] [facility] INSURANCE CORRESPONDENCE 2022-08-26 06:01:00 Doctor Roxanessigned, [facility] [employer] [facility] EXTERNAL PROVIDER RECORDS 2022-07-29 06:01:00 Doctor Unassigned, [facility] [employer] [facility] REFERRAL- 2022-07-15 06:01:00 Doctor Indio, [facility] REQUEST/RESPONSE [employer] [facility] URINALYSIS 2022-06-21 14:01:00 Susy Hernandeziq [facility] [place] PHYSICIAN ORDERS 2022-06-21 06:01:00 Doctor Cristoferigned, [facility] [employer] [facility] FLU VACC ([id number]), 6 2022-05-19 17:26:04 Kayode Rodriguez [facility] MO-64 YRS, .5ML, IM, QUAD Medica l Branch (FLUCELVAX) INSURANCE CORRESPONDENCE 2022-05-03 05:01:00 Doctor Unassigned, [facility] Name [facility] CBC WITH DIFF 2022-03-29 14:10:00 Susy Hernandez [facility] PHYSICIAN ORDERS 2022-03-29 05:01:00 Doctor Unassigned, [facility] Name [facility] Injection procedure for 2017-05-18 18:26:00 Hussein Holden shoulder arthrography or enhanced CT/MRI shoulder arthrography Encounters Start End Encounter Admission Attending Care Care Encounter Source Date/Time Date/Time Type Type Clinicians Facility Department ID 2021-05-24 Emergency [facility] [id number] Univers 21:54:56 [facility] 2021-05-24 Emergency [facility] [id number] Univers 17:13:06 [facility] 2021-05-23 [facility] PAT[facility] [id number] Univers 07:16:18 CHAPARRO [facility] 2023-04-03 2023-04-03 [facility] 1.2.034.457 [id number] Univers 00:00:00 00:00:00 [facility] 350.1.13.10 it y of [place] 4.2.7.2.686 Madhu as KENN?BLEA [id number] [address] MEDICAL OFFICE [facility] 2023-03-14 2023-03-14 [facility] 1.2.840.114 [id number] Univers 00:00:00 00:00:00 [facility] 350.1.13.10 it y of [place] 4.2.7.2.686 Madhu as KENN?BLEA [id number] [address] MEDICAL OFFICE BUILDING 2023-03-13 2023-03-13 [facility] 1.2.840.114 [id number] Univers 00:00:00 00:00:00 [facility] 350.1.13.10 it y of [place] 4.2.7.2.686 Madhu as KENN?BLEA [id number] [address] MEDICAL OFFICE BUILDING 2023-03-102023-03-10 Band Master Nathanael, Ahsna Lab Main [place] 1.2.8 40.114 [id number] Univers 09:00:00 09:15:00 Visit David Susy Gonzalez [place] 350.1.13. [address] [facility] 4.[place] [id number] [facility] [address] Branch BUILDING 2023-03-10 2023-03-10 Outpatient R DAVID [facility] [id number] Univers 09:00:00 09:00:00 SUSY ity o f [facility] 2023-03-10 2023-03-10 Orders Doctor VIOLETTA 1.2.840.114 [id number] Univers 00:00:00 00:00:00 Only Unassigned, SATHISH 350.1.13.10 ity of [employer] [facility] 4.2.7.2.686 Madhu as [id number] [address] 2023-02-13 2023-02-13 [facility] [id number] Univers 10:00:00 10:46:57 REENU ity of [facility] 2023-02-13 2023-02-13 Urgent Oly Santamaria [place] 1.2.840.11 4 [id number] Univers 10:00:00 10:46:57 Care Unknown, Attending HEALTH 350.1.13.10 ity of [place] 4.2.7.2.686 Madhu as KENN?BLEA [id number] [facility] [address] [place] MEDICAL OFFICE BUILDING 2023-02-13 2023-02-13 Orders Doctor VIOLETTA 1.2.840.114 [id number] Univers 00:00:00 00:00:00 Only Unassigned, SATHISH 350.1.13.10 ity of [employer] [facility] 4.2.7.2.686 Madhu as [id number] [address] 2023-02-13 2023-02-13 Jan [facility]DR[facility] 1.2.840.114 [id number] Univers 00:00:00 00:00:00 [facility] HEALTH 350.1.13.10 it [facility] 4.2.7.2.686 Madhu as KENN?BLEA [id number] [address] OFFICE [facility] 2023-01-30 2023-01-30 Referick RodriguezDR. [facility] 1.2.840.114 [id number] Univers 00:00:00 00:00:00 [facility] HEALTH 350.1.13.10 it y of [place] 4.2.7.2.686 Madhu as KENN?BLEA [id number] [address] OFFICE [facility] 2023-01-12 2023-01-12 [facility] RodriguezDR[facility] 1.2.840.114 [id number] Univers 00:00:00 00:00:00 [facility] HEALTH 350.1.13.10 it [facility] 4.2.7.2.686 Madhu as KENN?BLEA [id number] [address] 2023-01-11 2023-01-11 [facility] 1.2.840.114 [id number] Univers 00:00:00 00:00:00 [facility] HEALTH 350.1.13.10 it [facility] 4.2.7.2.686 Madhu as KENN?BLEA [id number] [address] 2022-12-29 2022-12-29 Orders Doctor VIOLETTA 1.2.840.114 [id number] Univers 00:00:00 00:00:00 Only Unassigned, SATHISH 350.1.13.10 ity of [employer] [facility] 4.2.7.2.686 Madhu as [id number] [address] 2022-12-26 2022-12-26 Telephone RodriguezDR[facility] 1.2.777.505 [id number] Univers 00:00:00 00:00:00 [facility] HEALTH 350.1.13.10 it y of [place] 4.2.7.2.686 Madhu as KENN?BLEA [id number] [address] OFFICE [facility] 2022-12-15 2022-12-15 Telephone RodriguezDR. [facility] 1.2.416.464 [id number] Univers 00:00:00 00:00:00 [facility] HEALTH 350.1.13.10 it y [facility] 4.2.7.2.686 Madhu as KENN?BLEA [id number] [facility] SHELBY [address] [facility] OFFICE [facility] 2022-12-15 2022-12-15 Referick RodriguezDR. [facility] 1.2.840.114 [id number] Univers 00:00:00 00:00:00 [facility] HEALTH 350.1.13.10 it y of [place] 4.2.7.2.686 Madhu as KENN?BLEA [id number] [facility] [address] [facility] OFFICE [facility] 2022-12-14 2022-12-14 Referick RodriguezDR. [facility] 1.2.840.114 [id number] Univers 00:00:00 00:00:00 [facility] HEALTH 350.1.13.10 it y [facility] 4.2.7.2.686 Madhu as KENN?BLEA [id number] [address] 2022-12-12 2022-12-12 Band Master Nathanael, Ahsan [facility] [place] 1.2.8 40.114 [id number] Univers 09:15:00 09:30:00 Visit Ja Elaine 350.1.13.10 ity of [place] [id number] [address] 2022-12-12 2022-12-12 Outpatient R CLARE [facility] [id number] Univers 09:15:00 09:15:00 JA itlorenzo of [facility] 2022-12-12 2022-12-12 Orders Doctor VIOLETTA 1.2.840.114 [id number] Univers 00:00:00 00:00:00 Only Unassigned, SATHISH 350.1.13.10 ity of [employer] [facility] 4.2.7.2.686 Madhu as [id number] [address] 2022-11-12 2022-11-12 Referick RodriguezDR[facility] 1.2.840.114 [id number] Univers 00:00:00 00:00:00 [facility] 350.1.13.10 it [facility] 4.2.7.2.686 Madhu as KENN?BLEA [id number] [address] OFFICE [facility] 2022-11-07 2022-11-07 Referick RodriguezDR. [facility] 1.2.840.114 [id number] Univers 00:00:00 00:00:00 [facility] HEALTH 350.1.13.10 it y of [place] 4.2.7.2.686 Madhu as KENN?BLEA [id number] [address] OFFICE [facility] 2022-10-19 2022-10-19 [id number] Univers 09:30:00 10:07:04 , KRISTEN it y of [facility] 2022-10-19 2022-10-19 Office [facility] 1.2.840.114 [id number] Univers 09:30:00 10:07:04 Visit , [facility] 350.1.13.10 ity of M [place] 4.2.7.2.686 Madhu as KENN?BLEA [id number] [address] OFFICE [facility] 2022-10-18 2022-10-18 Outpatient R MICHAEL [facility] [id number] Univers 10:00:00 10:10:20 [facility] 2022-10-18 2022-10-18 Office MichaelDR[facility] 1.2.840.114 [id number] Univers 10:00:00 10:10:20 Visit [facility] 350.1.13.10 it y of [place] 4.2.7.2.686 Madhu as KENN?BLEA [id number] [address] OFFICE [facility] 2022-10-16 2022-10-16 [address] [facility]DR[facility] 1.2.840.114 [id number] Univers 00:00:00 00:00:00 [facility] HEALTH 350.1.13.10 it y of [place] 4.2.7.2.686 Madhu as KENN?BLEA [id number] [address] OFFICE [facility] 2022-10-14 2022-10-14 Refill MichaelDR[facility] 1.2.840.114 [id number] Univers 00:00:00 00:00:00 [facility] HEALTH 350.1.13.10 it y of [place] 4.2.7.2.686 Madhu as KENN?BLEA [phone] [facility] [address] [facility] OFFICE [facility] 2022-09-16 2022-09-16 Telephone [facility] 1.2.695.180 [id number] Univers 00:00:00 00:00:00 [facility] HEALTH 350.1.13.10 it y of [place] 4.2.7.2.686 Madhu as KENN?BLEA [id number] [facility] [address] [facility] OFFICE [facility] 2022-09-14 2022-09-14 Telephone [facility] 1.2.270.844 [id number] Univers 00:00:00 00:00:00 [facility] HEALTH 350.1.13.10 it [facility] 4.2.7.2.686 Madhu as KENN?BLEA [id number] [address] 2022-09-09 2022-09-09 Band Master Nathanael, Adc Lab Main [place] 1.2.8 40.114 [id number] Univers 09:45:00 10:00:00 Visit Ja Elaine 350.1.13.10 ity of [place] [id number] [address] 2022-09-09 2022-09-09 Outpatient R CLARE [facility] [id number] Univers 09:45:00 09:45:00 JA turner of [facility] 2022-09-09 2022-09-09 Orders Doctor SHIPLEY 1.2.840.114 [id number] Univers 00:00:00 00:00:00 Only Unassigned, SATHISH 350.1.13.10 ity of [employer] [facility] 4.2.7.2.686 Madhu as [id number] [address] 2022-08-26 2022-08-26 Orders Doctor SHIPLEY 1.2.840.114 [id number] Univers 00:00:00 00:00:00 Only Unassigned, SATHISH 350.1.13.10 ity of [employer] [facility] 4.2.7.2.686 Madhu as [id number] [address] 2022-08-22 2022-08-22 [address] [facility] 1.2.940.313 [id number] Univers 00:00:00 00:00:00 Kayode HEALTH 350.1.13.10 it y of [place] 4.2.7.2.686 Madhu as KENN?BLEA [phone] [address] MEDICAL OFFICE [facility] 2022-08-19 2022-08-19 [address] [facility]DR[facility] 1.2.351.997 [id number] Univers 00:00:00 00:00:00 Kayode HEALTH 350.1.13.10 it [facility] 4.2.7.2.686 Madhu as KENN?BLEA [id number] [address] OFFICE [facility] 2022-08-19 2022-08-19 [address] [facility]DR[facility] 1.2.556.877 [id number] Univers 00:00:00 00:00:00 [facility] 350.1.13.10 it y of [place] 4.2.7.2.686 Madhu as KENN?BLEA [id number] [address] OFFICE [facility] 2022-08-17 2022-08-17 Wilton RodriguezDR. [facility] 1.2.170.351 [id number] Univers 00:00:00 00:00:00 [facility] HEALTH 350.1.13.10 it y of [place] 4.2.7.2.686 Madhu as KENN?BLEA [id number] [address] OFFICE [facility] 2022-08-15 2022-08-15 Ref[address] [facility]DR[facility] 1.2.840.114 [id number] Univers 00:00:00 00:00:00 [facility] HEALTH 350.1.13.10 it y of [place] 4.2.7.2.686 Madhu as KENN?BLEA [id number] [address] OFFICE [facility] 2022-07-29 2022-07-29 Band Master Nathanael, Ahsan [facility] [place] 1.2.8 40.114 [id number] Univers 12:15:00 12:30:00 Visit [facility] 350.1.13.10 ity of [place].2.[place] [id number] Ok hema [place] [address] [facility] 2022-07-29 2022-07-29 Outpatient R CLARE [facility] [id number] Univers 12:15:00 12:15:00 JA lorenzo [facility] 2022-07-29 2022-07-29 Orders Doctor VIOLETTA 1.2.840.114 [id number] Univers 00:00:00 00:00:00 Only Unassigned, SATHISH 350.1.13.10 ity of [employer] [facility] 4.2.7.2.686 Madhu as [id number] [address] 2022-07-22 2022-07-22 Referick RodriguezDR[facility] 1.2.840.114 [id number] Univers 00:00:00 00:00:00 [facility] 350.1.13.10 it y of [place] 4.2.7.2.686 Madhu as KENN?BLEA [id number] Ok hema T[facility] [address] [facility] OFFICE [facility] 2022-07-21 2022-07-21 Office MichaelDR[facility] 1.2.840.114 [id number] Univers 08:45:00 09:00:00 Visit [facility] 350.1.13.10 it y [facility] 4.2.7.2.686 Madhu as KENN?BLEA [phone] Ok dicedi T[facility]RES [address] [facility] OFFICE [facility] 2022-07-21 2022-07-21 Outpatient Leida RODRIGUEZ [facility] [id number] Univers 08:45:00 08:45:00 [facility] 2022-07-19 2022-07-19 Referick RodriguezDR[facility] 1.2.840.114 [id number] Univers 00:00:00 00:00:00 [facility] HEALTH 350.1.13.10 it y of [place] 4.2.7.2.686 Madhu as KENN?BLEA [id number] Ok dicnc [place] [address] [facility] OFFICE [facility] 2022-07-15 2022-07-15 Orders Doctor VIOLETTA 1.2.840.114 [id number] Univers 00:00:00 00:00:00 Only Unassigned, SATHISH 350.1.13.10 ity of [employer] [facility] 4.2.7.2.686 Madhu as [id number] [address] 2022-07-11 2022-07-11 [facility]phone [facility] 1.2.246.467 [id number] Univers 00:00:00 00:00:00 [facility] 350.1.13.10 it y of [place] 4.2.7.2.686 Madhu as KENN?BLEA [id number] [address] OFFICE [facility] 2022-07-11 2022-07-11 Telephone [facility] 1.2.238.899 [id number] Univers 00:00:00 00:00:00 [facility] 350.1.13.10 it y of [place] 4.2.7.2.686 Madhu as KENN?BLEA [id number] [address] OFFICE [facility] 2022-07-11 2022-07-11 Telephone [facility] 1.2.230.587 [id number] Univers 00:00:00 00:00:00 [facility] 350.1.13.10 it y of [place] 4.2.7.2.686 Madhu as KENN?BLEA [id number] [address] OFFICE [facility] 2022-06-21 2022-06-21 Band Master Nathanael, Ahsan [facility] [place] 1.2.8 40.114 [id number] Univers 07:45:00 08:00:00 Visit Susy Hernandez [place] 350.1.13. 10 ity of [place] [id number] Ok hema [address] 2022-06-21 2022-06-21 Outpatient R DAVID [facility] [id number] Univers 07:45:00 07:45:00 SUSY gaytany o f [facility] 2022-06-21 2022-06-21 Orders Doctor SHIPLEY 1.2.840.114 [id number] Univers 00:00:00 00:00:00 Only Unassigned, SATHISH 350.1.13.10 ity of [employer] [facility] 4.2.7.2.686 Madhu as [phone] [address] 2022-06-14 2022-06-14 Refill [facility] 1.2.840.114 [id number] Univers 00:00:00 00:00:00 [facility] 350.1.13.10 it y of [place] 4.2.7.2.686 Madhu as KENN?BLEA [id number] [address] MEDICAL OFFICE [facility] 2022-05-19 2022-05-19 [facility] [id number] Univers 12:15:00 12:32:01 KAYODE ity [facility] 2022-05-19 2022-05-19 Office [facility] 1.2.840.114 [id number] Univers 12:15:00 12:32:01 Visit [facility] 350.1.13.10 it y of [place] 4.2.7.2.686 Madhu as KENN?BLEA [id number] [address] MEDICAL OFFICE [facility] 2022-05-19 2022-05-19 Letter [facility] 1.2.840.114 [id number] Univers 00:00:00 00:00:00 (Out) [facility] 350.1.13.10 it y [facility] 4.2.7.2.686 Madhu as KENN?BLEA [id number] [address] OFFICE [facility] 2022-05-19 2022-05-19 Telephone [facility] 1.2.634.727 [id number] Univers 00:00:00 00:00:00 [facility] HEALTH 350.1.13.10 it y of [place] 4.2.7.2.686 Madhu as KENN?BLEA [id number] [address] MEDICAL OFFICE BUILDING 2022-05-11 2022-05-11 [address] [facility] 1.2.840.114 [id number] Univers 00:00:00 00:00:00 [facility] HEALTH 350.1.13.10 it y of [place] 4.2.7.2.686 Madhu as KENN?BLEA [id number] [facility] OFFICE [facility] 2022-05-03 2022-05-03 Orders Doctor VIOLETTA 1.2.840.114 [id number] Univers 00:00:00 00:00:00 Only Unassigned, SATHISH 350.1.13.10 ity of [employer] [facility] 4.2.7.2.686 Madhu as [id number] [address] 2022-04-20 2022-04-20 Referick RodriguezDR[facility] 1.2.840.114 [id number] Univers 00:00:00 00:00:00 [facility] HEALTH 350.1.13.10 it y [facility] 4.2.7.2.686 Madhu as KENN?BLEA [id number] [address] OFFICE [facility] 2022-04-15 2022-04-15 Band Master Nathanael, Adc [facility] [place] 1.2.8 40.114 [id number] Univers 12:45:00 13:00:00 Visit Susy Hernandez [place] 350.1.13. 10 ity of [place] [id number] [address] 2022-04-15 2022-04-15 Outpatient R DAVID [facility] [id number] Univers 12:45:00 12:45:00 SUSY turner o f [facility] 2022-04-14 2022-04-14 Referick RodriguezDR[facility] 1.2.840.114 [id number] Univers 00:00:00 00:00:00 [facility] HEALTH 350.1.13.10 it y of [place] 4.2.7.2.686 Madhu as KENN?BLEA [id number] [address] OFFICE [facility] 2022-03-29 2022-03-29 Band Master Nathanael, Adc Lab Main [place] 1.2.8 40.114 [id number] Univers 08:30:00 08:45:00 Visit Susy Hernandez Gonzalez [place] 350.1.13. [address] [facility] 4.2.7.2.[place] [id number] Ok hema [facility] 353 [facility] 2022-03-29 2022-03-29 Outpatient R DAVID [facility] [id number] Univers 08:30:00 08:30:00 VEENAED ity o f [facility] 2022-03-29 2022-03-29 [address] [facility] 1.2.650.854 [id number] Univers 00:00:00 00:00:00 [facility] HEALTH 350.1.13.10 it y [facility] 4.2.7.2.686 Madhu as KENN?BLEA [phone] Ok dicedi [address] OFFICE [facility] 2022-03-29 2022-03-29 Orders Doctor VIOLETTA 1.2.840.114 [id number] Univers 00:00:00 00:00:00 Only Unassigned, SATHISH 350.1.13.10 ity of [employer] [facility] 4.2.7.2.686 Madhu as [id number] [address] 2022-03-24 2022-03-24 Refill [facility] 1.2.840.114 [id number] Univers 00:00:00 00:00:00 Kay[facility] HEALTH 350.1.13.10 it y of [place] 4.2.7.2.686 Madhu as KENN?BLEA [phone] Ok dicedi [address] OFFICE [facility] 2022-03-01 2022-03-01 Telephone [facility] 1.2.876.068 [id number] Univers 00:00:00 00:00:00 [facility] HEALTH 350.1.13.10 it y of [place] 4.2.7.2.686 Madhu as KENN?BLEA [id number] Ok dic[address] OFFICE [facility] 2022-02-24 2022-02-24 Telephone [facility] 1.2.544.879 [id number] Univers 00:00:00 00:00:00 [facility] 350.1.13.10 it y of [place] 4.2.7.2.686 Madhu as KENN?BLEA [id number] Ok dic[address] OFFICE [facility] 2022-02-17 2022-02-17 Refill [facility] 1.2.840.114 [id number] Univers 00:00:00 00:00:00 [facility] 350.1.13.10 it y of [place] 4.2.7.2.686 Madhu as KENN?BLEA [phone] Me hema TORRES [address] [facility] OFFICE [facility] 2022-02-16 2022-02-16 Telephone [facility] 1.2.114.847 [id number] Univers 00:00:00 00:00:00 [facility] 350.1.13.10 it y of [place] 4.2.7.2.686 Madhu as KENN?BLEA [phone] Ok hema TORRES 044 [facility] OFFICE [facility] 2022-02-16 2022-02-16 Letter [facility] 1.2.840.114 [id number] Univers 00:00:00 00:00:00 (Out) [facility] 350.1.13.10 it y of [place] 4.2.7.2.686 Madhu as KENN?BLEA [id number] Ok hema TORRES 044 [facility] OFFICE [facility] 2022-02-15 2022-02-15 Outpatient R [facility] [id number] Univers 10:00:00 10:00:[address] [facility] 2022-02-15 2022-02-15 Laboratory Only, Ang Db Test RUST 1.2.8 40.114 [id number] Univers 10:00:00 10:00:00 Only Christina Mo 350.1.13.10 ity of [place] 4.2.7.2.686 Madhu as KENN?BLEA [id number] Ok hema TORRES 370 [facility] OFFICE [facility] 2022-02-15 2022-02-15 Outpatient R [facility] [id number] Univers 10:00:00 09:31:[address] [facility] 2022-02-14 2022-02-14 Outpatient R [facility] [id number] Univers 10:15:00 10:15:00 CHRISTINA pruett [facility] 2022-02-11 2022-02-11 Letter VIOLETTA Jones 1.2.840.114 [id number] Univers 00:00:00 00:00:00 (Out) Jacqueline BOWER 350.1.13.10 it y of [facility] 4.2.7.2.686 Madhu as [id number] [address] 2022-02-11 2022-02-11 Telephone Provider, RUST 1.2.840.114 [id number] Univers 00:00:00 00:00:00 Ang Db HEALTH 350.1.13.10 it y of Urgent Care [place] 4.2.7.2.686 [place] KENN?BLEA [phone] [facility] [address] [place] MEDICAL OFFICE [facility] 2022-02-10 2022-02-10 Urgent Donavan RUST 1.2.840.114 [id number] Univers 11:00:00 11:00:00 Care Henok HEALTH 350.1.13.10 it y of [place] 4.2.7.2.686 Madhu as KENN?BLEA [phone] [facility] [address] MEDICAL OFFICE [facility] 2022-02-10 2022-02-10 Outpatient R DONAVAN [facility] [id number] Univers 11:00:00 10:54:56 HENOK ity of [facility] 2022-01-27 2022-01-27 Telephone Michael RUST 1.2.380.279 [id number] Univers 00:00:00 00:00:00 Kayode HEALTH 350.1.13.10 it y of [place] 4.2.7.2.686 Madhu as KENN?BLEA [phone] [facility] [address] MEDICAL OFFICE BUILDING 2022-01-18 2022-01-18 Band Master Nathanael, Ahsan Lab Main RUST 1.2.8 40.114 [id number] Univers 07:45:00 08:00:00 Visit Ja Elaine 350.1.13.10 ity of [place].2.[place] [phone] [facility] 2022-01-18 2022-01-18 [facility] [id number] [facility] [place] 07:45:00 07:45:00 JA ity of [facility] 2022-01-18 2022-01-18 Orders Doctor VIOLETTA 1.2.840.114 [id number] Univers 00:00:00 00:00:00 Only Unassigned, SATHISH 350.1.13.10 ity of [employer] [facility] 4.2.7.2.686 Madhu as [phone] [address] 2022-01-03 2022-01-03 [facility] 1.2.566.831 [id number] Univers 00:00:00 00:00:00 Kayode HEALTH 350.1.13.10 it y of [place] 4.2.7.2.686 Madhu as KENN?BLEA [phone] [address] MEDICAL OFFICE [facility] 2021-12-21 2021-12-21 Refill [facility] 1.2.840.114 [id number] Univers 00:00:00 00:00:00 Kayode HEALTH 350.1.13.10 it y of [place] 4.2.7.2.686 Madhu as KENN?BLEA [phone] [address] MEDICAL OFFICE [facility] 2021-12-08 2021-12-08 Telephone [facility] 1.2.589.421 [id number] Univers 00:00:00 00:00:00 Kayode HEALTH 350.1.13.10 it y of [place] 4.2.7.2.686 Madhu as KENN?BLEA [phone] [address] MEDICAL OFFICE [facility] 2021-11-22 2021-11-22 [address] RodriguezDR[facility] 1.2.865.283 [id number] Univers 00:00:00 00:00:00 Kayode HEALTH 350.1.13.10 it y of [place] 4.2.7.2.686 Madhu as KENN?BLEA [phone] [address] OFFICE [facility] 2021-11-06 2021-11-06 Orders Doctor SHIPLEY 1.2.840.114 [id number] Univers 00:00:00 00:00:00 Only Unassigned, SATHISH 350.1.13.10 ity of [facility] 4.2.7.2.686 Madhu as [phone] [address] 2021-11-01 2021-11-01 Telephone [facility]DR[facility] 1.2.369.790 [id number] Univers 00:00:00 00:00:00 [facility] 350.1.13.10 it y of [place] 4.2.7.2.686 Madhu as KENN?BLEA [phone] [address] OFFICE [facility] 2021-10-14 2021-10-14 [facility]patient [facility] [id number] Univers 09:45:00 09:45:00 KAYODE turner [facility] 2021-10-14 2021-10-14 Office RodriguezDR[facility] 1.2.840.114 [id number] Univers 09:45:00 09:45:00 Visit [facility] 350.1.13.10 it y of [place] 4.2.7.2.686 Madhu as KENN?BLEA [phone] [address] OFFICE [facility] 2021-10-14 2021-10-14 Outpatient [facility] [id number] Univers 09:45:00 09:38:09 KAYODE ity [facility] [place] [facility] 2021-10-14 2021-10-14 Letter RodriguezDR[facility] 1.2.840.114 [id number] Univers 00:00:00 00:00:00 (Out) [facility] 350.1.13.10 it y of [place] 4.2.7.2.686 Madhu as KENN?BLEA [id number] [address] OFFICE [facility] 2021-10-08 2021-10-08 Band Master Nathanael, Ahsan Lab Main RUST 1.2.8 40.114 [id number] Univers 08:15:00 08:30:00 Visit Ja Elaine 350.1.13.[address] [facility] 4.2.7.2.[place] [phone] [address] 2021-10-08 2021-10-08 Outpatient [facility] [id number] Univers 08:15:00 08:15:00 JA ity of [facility] 2021-10-08 2021-10-08 Orders Doctor VIOLETTA 1.2.840.114 [id number] Univers 00:00:00 00:00:00 Only Unassigned, SATHISH 350.1.13.10 ity of [employer] HOSPITAL 4.2.7.2.686 Madhu as [phone] [address] 2021-09-21 2021-09-21 Orders Doctor VIOLETTA 1.2.840.114 [id number] Univers 00:00:00 00:00:00 Only Unassigned, SATHISH 350.1.13.10 ity of [employer] HOSPITAL 4.2.7.2.686 Madhu as [phone] [address] 2021-08-27 2021-08-27 Band Master Nathanael, [facility] Lab Main R[place] 1.2.8 40.114 [id number] Univers 08:00:00 08:15:00 Visit Susy [facility] 350.1.13. 10 ity of [place].2.[place] [phone] Ok hema [facility] 353 [facility] 2021-08-27 2021-08-27 Outpatient R DAVID, [facility] [id number] Univers 08:00:00 08:00:00 SUSY gaytany o f [facility] 2021-08-27 2021-08-27 Orders Doctor SHIPLEY 1.2.840.114 [id number] Univers 00:00:00 00:00:00 Only Unassigned, SATHISH 350.1.13.10 ity of [employer] HOSPITAL 4.2.7.2.686 Madhu as [phone] [address] 2021-08-05 2021-08-05 Jan Rodriguez RUST 1.2.840.114 [id number] Univers 00:00:00 00:00:00 Kayode HEALTH 350.1.13.10 it y [facility] 4.2.7.2.686 Madhu as KENN?BLEA [phone] Ok dical SHELBYEY [address] [place] MEDICAL OFFICE BUILDING 2021-08-03 2021-08-03 Band Master Nathanael, Adc Lab Main RUST 1.2.8 40.114 [id number] Univers 07:30:00 07:45:00 Visit Susy Hernandez 350.1.13. 10 ity of [place] 4.2.7.2.686 [place] PROFESS[place] [phone] [facility] 353 [facility] 2021-08-03 2021-08-03 Outpatient R DAVID, [facility] [id number] Univers 07:30:00 07:30:00 MOHAMMED ity o f [facility] 2021-08-03 2021-08-03 Orders Doctor SHIPLEY 1.2.840.114 [id number] Univers 00:00:00 00:00:00 Only Unassigned, SATHISH 350.1.13.10 ity of [employer] HOSPITAL 4.2.7.2.686 Madhu as [phone] [address] 2021-07-06 2021-07-06 Band Master Nathanael, Adc Lab Main [place] 1.2.8 40.114 [id number] Univers 07:33:55 07:48:55 Visit Ja Elaine 350.1.13.10 ity of Sus[place] Hernandez 4.2.7.2.686 [place] PROFESSIO [phone] [address] 2021-07-06 2021-07-06 Outpatient R DAVID, [facility] [id number] Univers 07:30:00 07:30:00 MOHAMMED ity o f [facility] 2021-07-06 2021-07-06 Outpatient R DAVID, [facility] [id number] Univers 07:30:00 07:30:00 MOHAMMED ity o f [facility] 2021-06-25 2021-06-25 Orders Doctor SHIPLEY 1.2.840.114 [id number] Univers 00:00:00 00:00:00 Only Unassigned, SATHISH 350.1.13.10 ity of [employer] HOSPITAL 4.2.7.2.686 Madhu as [phone] [address] 2021-06-24 2021-06-24 Outpatient R RADIOLOGY [facility] [id number] Univers 14:06:34 23:59:00 ity of [facility] 2021-06-24 2021-06-24 Hospital Radiology RUST 1.2.840.114 [id number] Univers 14:06:34 23:59:00 Encounter [place] 350.1.13.10 ity of [place]2.7.2.[place] [phone] [address] 2021-06-21 2021-06-21 Hospital Radiology RUST 1.2.840.114 [id number] Univers 07:43:09 23:59:00 Encounter [place] 350.1.13.[address] [facility] 4.2.7.2.[place] [phone] [address] 2021-06-21 2021-06-21 Band Master Nathanael, Adc Lab Main [place] 1.2.8 40.114 [id number] Univers 07:42:04 07:57:04 Visit Susy [facility]Saint [facility] 350.1.13. 10 ity of [place].2.7.2.[place] [phone] Ok dicedi [place] [address] [address] BUILDING 2021-06-21 2021-06-21 Outpatient R DAVID [facility] [id number] Univers 07:30:00 07:30:00 SUSY gaytany o f [facility] 2021-06-21 2021-06-21 Outpatient R RADIOLOGY [facility] [id number] Univers 00:00:00 00:00:00 ity of [facility] 2021-06-15 2021-06-15 Outpatient R MICHAEL [facility] [id number] Univers 08:30:00 08:30:00 KAYODE ity [facility] 2021-06-15 2021-06-15 Office Michael RUST 1.2.840.114 [id number] Univers 07:56:08 08:11:08 Visit Kayode [facility] 350.1.13.10 it y of [place] 4.2.7.2.686 Madhu as KENN?BLEA [phone] Ok dical [address] MEDICAL OFFICE BUILDING 2021-06-15 2021-06-15 Letter RodriguezDR[facility] 1.2.840.114 [id number] Univers 00:00:00 00:00:00 (Out) Kayode HEALTH 350.1.13.10 it y [facility] 4.2.7.2.686 Madhu as KENN?BLEA [phone] [address] MEDICAL OFFICE [facility] 2021-06-08 2021-06-08 Telephone RodriguezDR[facility]AN [facility] 1.2.155.238 [id number] Univers 00:00:00 00:00:00 Kayode HEALTH 350.1.13.10 it y [facility] 4.2.7.2.686 Madhu as KENN?BLEA [phone] [address] OFFICE [facility] 2021-06-07 2021-06-07 Emergency X [facility] ERT [id number] Univers 09:15:00 10:29:00 CYDNEY ity of [facility] 2021-06-07 2021-06-07 Emergency [facility] 1.2.840.114 [id number] Univers 09:15:00 10:29:00 Cydney MACEDO 350.1.13.10 ity of [place] 4.2.7.2.686 [place] [phone] [facility] [address] [place] 2021-06-07 2021-06-07 Emergency X [facility]DR[facility] E[facility] [id number] Univers 09:15:00 10:29:00 CYDNEY ity of [facility] 2021-05-31 2021-05-31 Jan RodriguezDR. DAN [facility] 1.2.840.114 [id number] Univers 00:00:00 00:00:00 Kayode HEALTH 350.1.13.10 it y [facility] 4.2.7.2.686 Madhu as KENN?BLEA [phone] [address] MEDICAL OFFICE [facility] 2021-05-21 2021-05-21 Orders Doctor SHIPLEY 1.2.840.114 [id number] Univers 00:00:00 00:00:00 Only Unassigned, SATHISH 350.1.13.10 ity of [employer] [facility] 4.2.7.2.686 Madhu as [phone] [facility] [address] [place] 2021-05-14 2021-05-14 Orders Doctor VIOLETTA 1.2.840.114 [id number] Univers 00:00:00 00:00:00 Only Unassigned, SATHISH 350.1.13.10 ity of [employer] [facility] 4.2.7.2.686 Madhu as [phone] [facility] [address] [place] 2021-05-04 2021-05-04 [facility] 1.2.840.114 [id number] Univers 08:11:23 23:59:00 Encounter Susy Tres 350.1.13.10 ity [facility] 4.2.7.2.686 [place] [id number] [facility] [address] [place] 2021-05-04 2021-05-04 Band Master Nathanael, Adc Lab Main RUST 1.2.8 40.114 [id number] Univers 08:07:14 08:22:14 Visit Ja Elaine 350.1.13.10 ity of Susy Hernandez 4.2.7.2.686 [place] Professio [phone] Ok dical nal 353 [facility] 2021-05-04 2021-05-04 [facility] [id number] Univers 00:00:00 00:00:00 SUSY pruett [facility] 2021-04-20 2021-04-20 Band Master Nathanael, Adc Lab Main RUST 1.2.8 40.114 [id number] Univers 07:36:29 07:51:29 Visit Susy Hernandez 350.1.13. 10 ity of [place] 4.2.7.2.686 [place] [facility] [phone] Ok dical nal 353 [facility] 2021-04-20 2021-04-20 Outpatient [facility] [id number] Univers 07:30:00 07:30:00 SUSY yue o seble [facility] 2021-04-19 2021-04-19 Orders Doctor SHIPLEY 1.2.840.114 [id number] Univers 00:00:00 00:00:00 Only Unassigned, [place] 350.1.13.10 ity of [facility] 4.2.7.2.686 Madhu as [phone] [address] 2021-04-08 2021-04-08 Telephone RodriguezDR[facility] 1.2.733.987 [id number] Univers 00:00:00 00:00:00 [facility] 350.1.13.10 it y of [place] 4.2.7.2.686 Madhu as Kenn?Blea [phone] [address] Medical Office Building 2021-04-07 2021-04-07 Office RodriguezDR[facility] 1.2.840.114 [id number] Univers 08:39:51 09:09:51 Visit [facility] 350.1.13.10 it y of [place] 4.2.7.2.686 Madhu as Kenn?Blea [phone] [address] Office [facility] 2021-04-07 2021-04-07 Outpatient R MICHAEL [facility] [id number] Univers 09:00:00 09:00:00 KAYODE ity [facility] [place] [facility] 2021-04-02 2021-04-02 Emergency [facility] 1.2.822.237 [id number] Univers 16:23:00 20:33:00 Tamera S [place] 350.1.13.10 i ty of [place] 4.2.7.2.686 [place] [phone] [address] 2021-04-02 2021-04-02 Emergency RodriguesDR[facility]AN [facility] 1.2.071.949 [id number] Univers 16:23:00 20:33:00 Tamera S [place] 350.1.13.10 i ty of [place] 4.2.7.2.686 [place] [id number] [address] 2021-03-31 2021-03-31 Telephone RodriguezDR. [facility]AN [facility] 1.2.571.974 [id number] Univers 00:00:00 00:00:00 [facility] 350.1.13.10 it y of [place] 4.2.7.2.686 Madhu as Kenn?Blea [phone] [address] Office [facility] 2021-03-31 2021-03-31 Telephone MichaelDR[facility] 1.2.062.010 [id number] Univers 00:00:00 00:00:00 Kayode [facility] 350.1.13.10 it y of [place] 4.2.7.2.686 Madhu as Kenn?Blea [phone] [address] Office [facility] 2021-03-30 2021-03-30 Telephone MichaelDR[facility] 1.2.190.478 [id number] Univers 00:00:00 00:00:00 Kayode Health 350.1.13.10 it y of [place] 4.2.7.2.686 Madhu as Kenn?Blea [phone] [address] Office [facility] 2021-03-29 2021-03-29 [facility] RodriguezDR[facility] 1.2.840.114 [id number] Univers 00:00:00 00:00:00 Kayode [facility] 350.1.13.10 it y of [place] 4.2.7.2.686 Madhu as Professio [phone] [address] One 2021-03-29 2021-03-29 [facility] RodriguezDR[facility] 1.2.840.114 [id number] Univers 00:00:00 00:00:00 [facility] 350.1.13.10 it y of [place] 4.2.7.2.686 Madhu as Professio [phone] [facility] nal [address] [place] [address] One 2021-03-28 2021-03-28 [facility] RodriguezDR. [facility] 1.2.840.114 [id number] Univers 00:00:00 00:00:00 Kay[facility] 350.1.13.10 it y of [place] 4.2.7.2.686 Madhu as Kenn?Blea [phone] [address] Office [facility] 2021-03-25 2021-03-25 Transition Demetris Perez 1.2.840.114 [id number] Univers 00:00:00 00:00:00 of Care [place] 350.1.13.10 i ty of [place] 4[place]2.7.2.686 [place] [id number] [facility] [address] 2021-03-25 2021-03-25 Transition Demetris Perez 1.2.840.114 [id number] Univers 00:00:00 00:00:00 of Care [place] 350.1.13.10 i ty of [place] 4.2.7.2.686 [place] [id number] [facility] [address] 2021-03-14 2021-03-24 [facility] 1.2.84 0.114 [id number] Univers 12:26:00 11:09:00 Encounter Roni Duffy 350.1.13.10 ity of [place] 4.2.7.2.686 [place] [phone] [facility] [address] 2021-03-14 2021-03-24 [facility] 1.2.84 0.114 [id number] Univers 12:26:00 11:09:00 Encounter Roni Duffy 350.1.13.10 ity of [place] 4.2.7.2.686 [place] [id number] [facility] [address] 2021-03-20 2021-03-20 Surgery [facility] 1.2.840.114 [id number] Univers 07:30:00 08:03:00 Margarita yee 350.1.13.10 ity of [place] 4.2.7.2.686 [place] Surgical [id number] [facility] [address] 2021-03-20 2021-03-20 Surgery [facility] 1.2.840.114 [id number] Univers 07:30:00 08:03:00 Margarita yee 350.1.13.10 ity of [place] 4.2.7.2.686 [place] Surgical [phone] [facility] [address] 2021-03-17 2021-03-17 Telephone MichaelDR[facility] 1.2.506.682 [id number] Univers 00:00:00 00:00:00 [facility] 350.1.13.10 it y of [place] 4.2.7.2.686 Madhu as Kenn?Blea [phone] Ok hema eucedaey 044 [facility] Office Building 2021-03-10 2021-03-10 Outpatient R MICHAEL [facility] [id number] Univers 09:45:00 09:45:00 KAYODE ity of [facility] 2021-02-26 2021-02-26 Telephone Michael RUST 1.2.062.678 [id number] Univers 00:00:00 00:00:00 [facility] 350.1.13.10 it y of [place] 4.2.7.2.686 Madhu as Professio [phone] Ok hema nal [address] [place] [address] Office [facility] One 2021-02-24 2021-02-24 Outpatient R [facility] [id number] Univers 09:20:00 09:20:00 ity of [facility] 2021-02-24 2021-02-24 Laboratory Lab, Adc Fam Pob I RUST 1.2. 840.114 [id number] Univers 08:58:04 09:18:04 Only Yoana [facility] 350.1.13.10 ity of [place] 4.2.7.2.686 Madhu as Professio [phone] Ok vipulnc karen [address] [place] [address] One 2021-02-24 2021-02-24 Marc RodriguezDR[facility] 1.2.840.114 [id number] Univers 00:00:00 00:00:00 (Out) [facility] 350.1.13.10 it y of [place] 4.2.7.2.686 Madhu as Professio [phone] Ok dical nal [address] [place] [address] Office [facility] One 2021-02-24 2021-02-24 Letter MichaelDR[facility] 1.2.840.114 [id number] Univers 00:00:00 00:00:00 (Out) [facility] 350.1.13.10 it y of [place] 4.2.7.2.686 Madhu as Professio [phone] Ok dicnc nal [address] [place] [address] Office [facility] One 2021-02-22 2021-02-22 [facility] [id number] Univers 15:15:00 15:15:00 KAYODE [facility] 2021-02-22 2021-02-22 Office Michael R[place] 1.2.840.114 [id number] Univers 14:18:49 15:08:09 Visit Kayode Health 350.1.13.10 it y of [place] 4.2.7.2.686 Madhu as Professio [phone] Ok dicnc nal [address] [place] [address] One 2021-02-12 2021-02-12 Outpatient R JOSE ALFREDO BURKS [facility] [id number] Univers 10:40:00 10:40:00 JOSE ALFREDO BURKS lorenzo [facility] 2021-02-07 2021-02-07 Wilton Galvan [facility] 1.2.997.179 [id number] Univers 00:00:00 00:00:00 [facility] 350.1.13.10 it y of [place] 4.2.7.2.686 Madhu as Professio [phone] Ok dical nal [address] [place] [address] One 2021-02-06 2021-02-06 Wilton GalvanDR[facility] 1.2.407.796 [id number] Univers 00:00:00 00:00:00 [facility] 350.1.13.10 it y of [place] 4.2.7.2.686 Madhu as Professio [phone] Ok dical nal [address] [place] [address] One 2021-02-05 2021-02-05 Laboratory Lab, Adc Fam Pob I [place] 1.2. 840.114 [id number] Univers 11:08:01 11:28:01 Only Cole [facility] 350.1.13.10 ity of [place] 4.2.7.2.686 Madhu as Professio [phone] Ok dical nal [address] [place] [address] Office [facility] One 2021-02-05 2021-02-05 Outpatient R COLE [facility] [id number] Univers 11:00:00 11:00:00 INGA [facility] 2020-12-28 2020-12-28 Referick Burks [facility] 1.2.840.114 [id number] Univers 00:00:00 00:00:00 Jose Alfredo Macedo 350.1.13.10 ity of [place]2.7.2.686 [place] Profess[place] [phone] Ok dical nal 092 [facility] 2020-12-07 2020-12-07 Urgent Provider, [facility] 1.2.840.114 [id number] Univers 13:04:34 13:24:34 Care Diane Rayo [facility] 350.1.13.10 ity of [place] 4.2.7.2.686 Madhu as Professio [phone] Ok dicnc nal [address] [place] Office [facility] One 2020-12-07 2020-12-07 Outpatient R [facility] [id number] Univers 13:20:00 13:20:00 ity of [facility] 2020-12-07 2020-12-07 Marc Hendrickson R[facility] 1.2.840.114 [id number] Univers 00:00:00 00:00:00 (Out) [facility] 350.1.13.10 it y of [place] 4.2.7.2.686 Madhu as Professio [phone] [facility] nal 044 [facility] 2020-10-26 2020-10-26 Jan BurksDR[facility] 1.2.840.114 [id number] Univers 00:00:00 00:00:00 Jose Alfredo Macedo 350.1.13.10 it[place] of [place]2.7.2.[place] [phone] Ok dicnc nal 092 [facility] 2020-10-24 2020-10-24 Band Master Ahsan Huffman Lab Main [facility] 1.2.8 40.114 [id number] Univers 08:18:22 08:33:22 Visit Kayode Rodriguez 350.1.13.10 ity of [place] 4.2.7.2.686 [place] [phone] Ok dical nal 353 [facility] 2020-10-24 2020-10-24 Outpatient R MICHAEL [facility] [id number] Univers 08:30:00 08:30:00 KAYODE turner [facility] 2020-10-23 2020-10-23 Urgent Provider, [facility] [place] 1.2.840.114 [id number] Univers 07:58:19 08:18:19 Care Samantha Hendrickson 350.1.13.10 ity of [place] 4.2.7.2.686 Madhu as Professio [phone] Ok dical nal [address] [place] Office Building One 2020-10-23 2020-10-23 Outpatient R [facility] [id number] Univers 08:00:00 08:00:00 ity of [facility] 2020-10-23 2020-10-23 Telephone [facility] 1.2.793.070 [id number] Univers 00:00:00 00:00:00 [facility] 350.1.13.10 it y of [place] 4.2.7.2.686 Madhu as Professio [phone] Ok dical nal [address] [place] Office [facility] One 2020-10-21 2020-10-21 Hospital Massimo [facility] 1.2.722.121 [id number] Univers 09:23:00 12:24:00 Encounter Chaparro Macedo 350.1.13.10 ity of [place]2.7.2.686 [place] Surgical [phone] [facility] [address] 2020-10-21 2020-10-21 Surgery Massimo [facility] 1.2.840.114 [id number] Univers 11:29:00 12:10:00 Chaparro Macedo 350.1.13.10 ity of [place] 4.2[place] [phone] [facility] 020 Branch 2020-10-21 2020-10-21 Orders Doctor VIOLETTA 1.2.840.114 [id number] Univers 00:00:00 00:00:00 Only Unassigned, SATHISH 350.1.13.10 ity of [employer] [facility] 4.2.7.2.686 Madhu as [phone] [facility] 009 Branch 2020-10-20 2020-10-20 Laboratory Only, Adc Test RUST 1.2.840. 114 [id number] Univers 08:55:32 09:10:32 Only [place] 350.1.13.1 0 [place] [phone] [address] 2020-10-20 2020-10-20 Outpatient R MASSIMO [facility] [id number] Univers 08:45:00 08:45:00 CHAPARRO turner [facility] 2020-10-16 2020-10-16 Band Master Nathanael, Adc Lab Main RUST 1.2.8 40.114 [id number] Univers 13:04:04 13:19:04 Visit Kayode [place] 350.1.13.10 [place] [phone] [address] 2020-10-16 2020-10-16 [facility] [id number] Univers 13:15:00 13:15:00 KAYODE ity [facility] 2020-10-16 2020-10-16 [facility] [id number] Univers 13:15:00 13:15:00 KAYODE ity [facility] 2020-10-16 2020-10-16 Band Master Nathanael, Adc Lab Main RUST 1.2.8 40.114 [id number] Univers 10:28:31 10:43:31 Visit Chaparro [place] 350.1.13.1 0 [place] [phone] [address] 2020-10-16 2020-10-16 Outpatient Leida KEYS [facility] [id number] Univers 10:15:00 10:15:00 CHAPARRO turner [facility] 2020-10-16 2020-10-16 [facility] [id number] Univers 00:00:00 00:00:00 Kayode [facility] 350.1.13.10 [place] 4.2.7.2.686 Madhu as Professio [phone] [address] [employer] [facility] [employer] 2020-09-30 2020-09-30 Orders Doctor SHIPLEY 1.2.840.114 [id number] Univers 00:00:00 00:00:00 Only Unassigned, SATHISH 350.1.13.10 ity of [employer] [facility] 4.2.7.2.686 Madhu as [phone] [address] 2020-08-24 2020-08-24 Ref[facility] 1.2.840.114 [id number] Univers 00:00:00 00:00:00 Jose Alfredo Macedo 350.1.13.10 [place] [phone] [address] 2020-07-08 2020-07-08 Referick BurksDR[facility] 1.2.840.114 [id number] Univers 00:00:00 00:00:00 Jose Alfredo Macedo 350.1.13.10 [place] [phone] [address] 2020-06-09 2020-06-09 Orders Doctor VIOLETTA 1.2.840.114 [id number] Univers 00:00:00 00:00:00 Only Unassigned, SATHISH 350.1.13.10 ity of [employer] [facility] 4.2.7.2.686 Madhu as [phone] [address] 2020-05-27 2020-05-27 Referick BurksDR. [facility] 1.2.840.114 [id number] Univers 00:00:00 00:00:00 Jose Alfredo Macedo 350.1.13.10 [place] [phone] [address] 2020-04-24 2020-04-24 Referick BurksDR. [facility] 1.2.840.114 [id number] Univers 00:00:00 00:00:00 Jose Alfredo Macedo 350.1.13.10 [place] [phone] [address] 2020-03-16 2020-03-16 Referick BurksDR[facility] 1.2.840.114 [id number] Univers 00:00:00 00:00:00 Jose Alfredo Macedo 350.1.13.10 [place] [phone] [address] 2020-02-21 2020-02-21 Telephone DevenDR[facility] 1.2.840.114 [id number] Univers 00:00:00 00:00:00 Jose Alfredo Macedo 350.1.13.10 [place] [phone] [address] 2020-02-20 2020-02-20 Refill [facility]DR[facility] 1.2.840.114 [id number] Univers 00:00:00 00:00:00 Jose Alfredo Macedo 350.1.13.10 [place] [phone] [address] 2020-01-28 2020-01-28 Refill [facility]DR[facility] 1.2.840.114 [id number] Univers 00:00:00 00:00:00 Jose Alfredo Macedo 350.1.13.10 [place] [phone] [address] 2019-11-29 2019-11-29 Outpatient R JOSE ALFREDO BURKS [facility] [id number] Univers 14:00:00 14:00:00 JOSE ALFREDO BURKS ity [facility] 2019-11-29 2019-11-29 Telemedici Deven [facility] 1.2.840.114 [id number] Univers 12:03:54 12:23:54 ne Visit Jose Alfredo Macedo 350.1.13.10 [place] [phone] [address] 2019-11-26 2019-11-26 Telephone [facility]DR[facility] 1.2.840.114 [id number] Univers 00:00:00 00:00:00 [facility] 350.1.13.10 [place] [phone] Ok dical nal 092 [facility] 2019-11-24 2019-11-24 [facility] JensenocheDR[facility] 1.2.840.114 [id number] Univers 00:00:00 00:00:00 [facility] 350.1.13.10 ity of Surgical 4.2.7.2.686 Madhu as Specialti [phone] Ok dical es 198 [facility] 2019-09-13 2019-09-13 Orders Doctor VIOLETTA 1.2.840.114 [id number] Univers 00:00:00 00:00:00 Only Unassigned, SATHISH 350.1.13.10 ity of [employer] [facility] 4.2.7.2.686 Madhu as [phone] [address] 2019-09-06 2019-09-06 [facility] 1.2.840.114 [id number] Univers 00:00:00 00:00:00 [facility] 350.1.13.10 ity of Surgical 4.2.7.2.686 Madhu as Specialti [phone] Ok dical es 198 [facility] 2019-08-28 2019-08-28 Referick RodriguezDR. [facility] 1.2.840.114 [id number] Univers 00:00:00 00:00:00 [facility] 350.1.13.10 it y of [place] 4.2.7.2.686 Madhu as Professio [phone] Ok dical nal 044 [facility] 2019-08-28 2019-08-28 [facility] Dev[facility], [facility] 1.2.840.114 [id number] Univers 00:00:00 00:00:00 [facility] 350.1.13.10 ity of Surgical 4.2.7.2.686 Madhu as Specialti [phone] Ok dical es 198 [facility] 2019-08-26 2019-08-26 Wilton RodriguezDR. [facility] 1.2.935.493 [id number] Univers 00:00:00 00:00:00 [facility] 350.1.13.10 it y of [place] 4.2.7.2.686 Madhu as Professio [phone] Ok dical nal 044 [facility] 2019-08-19 2019-08-19 Office Michael [facility] 1.2.840.114 [id number] Univers 12:35:11 12:50:11 Visit [facility] 350.1.13.10 it y of [place] 4.2.7.2.686 Madhu as Professio [phone] Ok dical nal 044 [facility] 2019-08-19 2019-08-19 Orders Doctor VIOLETTA 1.2.840.114 [id number] Univers 00:00:00 00:00:00 Only Unassigned, SATHISH 350.1.13.10 ity of [employer] [facility] 4.2.7.2.686 Madhu as [phone] [facility] 009 [place] 2019-08-19 2019-08-19 Letter RodriguezDR. [facility] 1.2.840.114 [id number] Univers 00:00:00 00:00:00 (Out) [facility] 350.1.13.10 it y of [place] 4.2.7.2.686 Madhu as Professio [phone] [address] 2019-08-10 2019-08-10 Referick BurksDR. [facility] 1.2.840.114 [id number] Univers 00:00:00 00:00:00 [facility] 350.1.13.10 ity of Surgical 4.2.7.2.686 Madhu as Specialti [phone] Ok dical es 198 [facility] 2019-02-21 2019-02-21 Refill Dev[facility]DR[facility] 1.2.840.114 [id number] Univers 00:00:00 00:00:00 [facility] 350.1.13.10 ity of Surgical 4.2.7.2.686 Madhu as Specialti [phone] Ok dical es 198 [facility] 2017-05-18 2017-05-19 Outpt Diag nullFlavo [facility] [id number] Memoria 15:45:00 04:59:00 Services r Outpatient sharon Holden 2017-05-18 2017-05-19 Outpt Diag nullFlavo [facility] [id number] Memoria 15:45:00 04:59:00 Services r Outpatient 01 l Imaging Navin Holden 2017-05-18 2017-05-[address] [facility] [id number] 10:45:00 23:59:00 Addison Ricketts 01 2016-02-19 2016-02-20 Outpt Diag nullFlavo [facility] [id number] Memoria 16:06:00 04:59:00 Services r Outpatient 00 l Imaging Navin Holden 2016-02-19 2016-02-20 Outpt Diag nullFlavo [facility] [id number] Memoria 16:06:00 04:59:00 Services r Outpatient 00 l Imaging Navin Holden 2016-02-19 2016-02-19 Outpatient Dorian, [facility] [id number] 11:06:00 23:59:00 Abram Spencer 00 Results Test Description Test Time Test Comments Results Result Comments Source URINALYSIS 2022-06-21 14:37:41 Test Item Value Reference Range Interpretation Comme nts APPEARANCE (test code = Clear Clear 1962059686) COLOR (test code = 2284095110) Yellow Yellow PH (test code = 6910629032) 4.8-8.0 SP GRAVITY (test code = 1.003-1.030 3406309242) GLU U QUAL (test code = Normal Normal 8342994321) BLOOD (test code = 4962970098) Negative Negative KETONES (test code = 0547025541) Negative Negative PROTEIN (test code = 2887-8) Negative Negative UROBILIN (test code = Normal Normal 2545259018) BILIRUBIN (test code = Negative Negative 8927494211) NITRITE (test code = 0260395091) Negative Negative LEUK HAYLEE (test code = Negative Negative 7251256475) RBC/HPF (test code = 0940945912) See_Comment [Automated message] The system which ge nerated this result transmit chad reference range: 0 - 3 HP F. The reference range was not used to interpret th is result as normal/abnormal . WBC/HPF (test code = 5557028424) See_Comment [Automated message] The system which ge nerated this result transmit chad reference range: 0 - 5 HP F. The reference range was not used to interpret th is result as normal/abnormal . BACTERIA (test code = Few Negative A 4744323837) MUCOUS (test code = 3559092899) Slight Negative LPF A HYAL CAST (test code = See_Comment H [Aut omated message] The 9396054512) system which ge nerated this result transmit chad reference range: <=2 LPF. The reference range was not u sed to interpret this result as normal/abnormal . Lab Interpretation (test code = Abnormal 30783-1) [facility] WITH [id number] 14:35:01 Test Item Value Reference Range Interpretation [...] RDW-SD (test code = 45.3 fL 38.5-51.6 11307-6) RDW-CV (test code = 12.9 % 12.1-15.4 788-0) PLT (test code = See_Comment H [Automated 777-3) message] The sy stem which generated this result transmitted reference range : 150 - 328 10*3/ ?L. The reference r masood was not used to interpret this result as normal/abnormal . MPV (test code = 10.0 fL 9.8-13 26988-9) NRBC/100 WBC (test See_Comment [Automat ed code = 8933293365) message] The system which generated this result transmitted reference range : 0.0 - 10.0 /100 WBCs. The refer ence range was not u sed to interpret th is result as normal/abnormal . NRBC x10^3 (test code See_Comment [Auto mated = 6161285455) message] The s ystem which generated this result transmitted reference range : 10*3/?L. The reference range was not used to interpret this result as normal/abnormal . GRAN MAT (NEUT) % 69.1 % (test code = 770-8) IMM GRAN % (test code 0.60 % = 3415889689) LYMPH % (test code = 15.1 % 736-9) MONO % (test code = 14.1 % 5905-5) EOS % (test code = 0.7 % 713-8) BASO % (test code = 0.4 % 706-2) GRAN MAT x10^3(ANC) 6.25 10*3/uL 1.99-6.95 (test code = 0652337308) IMM GRAN x10^3 (test 0.05 10*3/uL 0-0.06 code = 7570750084) LYMPH x10^3 (test code 1.36 10*3/uL 1.09-3.23 = 731-0) MONO x10^3 (test code 1.27 10*3/uL 0.36-1.02 H = 742-7) EOS x10^3 (test code = 0.06 10*3/uL 0.06-0.53 711-2) BASO x10^3 (test code 0.04 10*3/uL 0.01-0.09 = 704-7) Lab Interpretation Abnormal (test code = 17070-5) [facility] Notes Date/Time Note Provider Source 2023-04-03 Formatting of this note is different from the or iginal. [facility] 14:38:06-00:00 Last Refilled: Order Information Date and Time Ordering Department Ordering/Autho rizing 03/13/2023 10:11 AM [facility] Jaye Ruth MD Outpatient Medication Detail Disp Refills Start End ANA sumatriptan (IMITREX) 100 mg tablet 9 tablet 2 -- Sig: Take 1 tablet by mouth as needed for Migraine. May repeat the dose 2 hours after first dose. Do not take more than 200 mg in any 24-hour period Sent to pharmacy as: SUMAtriptan 100 mg tablet ( Imitrex) Class: eRX Route: Oral Order: [id number] Date/Time Signed: 03/13/2023 10:11 E-Prescribing Status: Receipt confirmed by pharm acy (03/13/2023 10:12 AM CDT) Medication Administration Instructions May repeat the dose 2 hours after first dose. 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 Order Associated Providers Name NPI Ordering Provider Kayode Rodriguez MD [[id number]] [id number] Authorizing Provider Kayode Rodriguez MD [[id number]] [id number] Order Mode Info Action Created on Order Mode Entered by Responsible Provider Signed by Signed on Ordering 03/13/23 1011 Ambul atory Guidelines Jania Carmona, DRAFTING TECHNICIAN Kayode Rodriguez MD Rogers, Anthony, MD 03/13/23 1046 Recent Visits Date Type Provider Dept 10/19/22 Office Visit Kristen Avendaño MD [facility] 10/18/22 Office Visit Kayode Rodriguez MD [facility] 07/21/22 Office Visit Kayode Rodriguez MD [facility] 05/19/22 Office Visit Kayode Rodriguez MD [facility] 10/14/21 Office Visit Kayode Rodriguez MD [facility] Showing recent visits within past 540 days with a meds authorizing provider and meeting all other requirements Future Appointments No visits were found meeting these conditions. Showing future appointments within next 150 days with a meds authorizing provider and meeting all other requirements 2023-04-03 Formatting of this note might be differe nt from the original. Babs Bach [facility] 11:49:55-00:00 Ja Aquino is a 62 year old male Patient calling to request a refill on sumatript an. [id number] [place], [place] - [address] AT [facility] Electronically signed by Babs Bach at 11:50 AM T 2023-03-14 Formatting of this note is different fro m the original. Marnie Drummond RN [facility] 11:48:55-00:00 HYDROcodone-acetaminophen 5-325 mg table t 120 tablet 0 02/13/2023 Last Refilled: 02/13/23 Notes: [facility] #[id number] - [place], [place] - [address] AT [facility] Recent Visits Date Type Provider Dept 10/19/22 Office Visit Kristen Avendaño MD [facility] 10/18/22 Office Visit Kayode Rodriguez MD [facility] 07/21/22 Office Visit Kayode Rodriguez MD [facility] 05/19/22 Office Visit Kayode Rodriguez MD [facility] 10/14/21 Office Visit Kayode Rodriguez MD [facility] Showing recent visits within past 540 days with a meds authorizing provider and meeting all other requirements Future Appointments No visits were found meeting these conditions. Showing future appointments within next 150 days with a meds authorizing provider and meeting all other requirements Electronically signed by Marnie Drummond RN at 0 03/14/2023 11:50 AM T 2023-03-14 [facility] 11:35:30-00:00 Please call and advise patient on refills. Electronically signed by Rebeca Young at 11:36 AM CDT 2023-03-13 [facility] 09:41:52-00:00 Patient called requesting rx refills. Please adv ise Electronically signed by Ana Centeno at 03/13 9:42 AM T 2023-03-10 Formatting of this note is different from the or iginal. [facility] 09:00:00-00:00 Images from the original note were not included. Paper orders given by pt for David Jain MD. Vinnie Cormier 03/10/2023 8:06 AM All paper orders put in. Venipuncture collection perf ormed by clean technique on the left anticubitus. Total of 2. Vinnie 1(No blood) Hanny 2nd (Blood collected) attempts were made. Slight pressure and a bandage/dressing were applied to the site(s). The patient experienced no complications. The following specimens were processed according to instructions and sent to [facility] per lab order on 03/10/2023 : LT BLUE SST 1 RED LAV 2 PPT DK GREEN (LiHep) DK GREEN (SodH) COLON DK BLUE (K2) DK BLUE (S) ACD Blood Culture NIPT/NTD Patient has been identified by and name and was provided with cup, antiseptic towelette, and clean catch instructions. 4 urine specimen(s) sent. Unpreserved 3 Urine Culture 1 Aptima tube Other urine Electronically signed by Vinnie Cormier at 8:14 AM T 2023-02-13 Formatting of this note is different from the or iginal. [facility] 10:12:17-00:00 HYDROcodone-acetaminophen 5-325 mg table t 120 tablet 0 01/15/2023 Last refilled: 01/15/23 [id number] [place] [address] [facility] Recent Visits Date Type Provider Dept 10/19/22 Office Visit Kristen Avendaño MD [facility] 10/18/22 Office Visit Kayode Rodriguez MD [facility] 07/21/22 Office Visit Kayode Rodriguez MD [facility] 05/19/22 Office Visit Kayode Rodriguez MD [facility] 10/14/21 Office Visit Rodriguez, Kayode, MD [facility] Showing recent visits within past 540 days with a meds authorizing provider and meeting all other requirements Future Appointments No visits were found meeting these conditions. Showing future appointments within next 150 days with a meds authorizing provider and meeting all other requirements Electronically signed by Marnie Drummond RN at 0 02/13/2023 10:13 AM CDT 2023-02-13 Formatting of this note might be differe nt from the original. Luzmaria Gan [facility] 09:20:56-00:00 Pt calling need refill on HYDROcodone-acetaminophen 5-325 mg tablet zolpidem 10 mg tablet [facility] #[id number] - [place], [place] - [facility] AT [place] Electronically signed by Luzmaria Gan at 9:21 AM CDT 2017-05-18 EXAM: MR ARTHROGRAM LEFT SHOULDER ELIZABETH Holden 13:35:00-00:00 DATE: 05/18/2017 11:47 AM CDT INDICATION: - [...] 2. Degeneration of the biceps-labral complex. 2017-05-18 EXAM: MR ARTHROGRAM LEFT SHOULDER FRANCISCO Holden 13:35:00-00:00 DATE: 05/18/2017 11:47 AM CDT INDICATION: - [...] 2. Degeneration of the biceps-labral complex. 2017-05-18 EXAM: MR ARTHROGRAM LEFT SHOULDER FRANCISCO Holden 13:35:00-00:00 DATE: 05/18/2017 11:47 AM CDT INDICATION: - [...] 2. Degeneration of the biceps-labral complex. 2017-05-18 EXAM: MR ARTHROGRAM LEFT SHOULDER FRANCISCO Holden 13:35:00-00:00 DATE: 05/18/2017 11:47 AM CDT INDICATION: - [...] 2. Degeneration of the biceps-labral complex. 2017-05-18 EXAM: FLUOROSCOPY-GUIDED LEFT SHOULDER INJECTION ELIZABETH Hloden 12:50:00-00:00 DATE: 05/18/2017 11:07 AM CDT INDICATION: - [...] Technically successful fluor oscopy-guided left shoulder injection. 2017-05-18 EXAM: FLUOROSCOPY-GUIDED LEFT SHOULDER INJECTION ELIZABETH Holden 12:50:00-00:00 DATE: 05/18/2017 11:07 AM CDT INDICATION: - [...] Technically successful fluor oscopy-guided left shoulder injection. 2017-05-18 EXAM: FLUOROSCOPY-GUIDED LEFT SHOULDER INJECTION ELIZABETH Holden 12:50:00-00:00 DATE: 05/18/2017 11:07 AM CDT INDICATION: - [...] Technically successful fluor oscopy-guided left shoulder injection. 2017-05-18 EXAM: FLUOROSCOPY-GUIDED LEFT SHOULDER INJECTION ELIZABETH Holden 12:50:00-00:00 DATE: 05/18/2017 11:07 AM CDT INDICATION: - [...] successful fluor oscopy-guided left shoulder injection. 2016-02-19 EXAM: Ext Upper non vascular US ELIZABETH Friasann 11::33-00:00 DATE: 02/19/2016 11:20 AM CDT INDICATION: M75.102 [...] some septation (synovitis) . Questionable adhesive capsulitis. 2016-02-19 EXAM: Ext Upper non vascular [facility] 11::33-00:00 DATE: 02/19/2016 11:20 AM CDT INDICATION: M75.102 Unspecif ied rotator cuff tear or rupture of left shoulder, not specified as traumatic Pain. COMPARISON: None. TECHNIQUE: Ultrasound examination of the left sh oulder was performed. DISCUSSION: Biceps tendon: There [...] some septation (synovitis) . Questionable adhesive capsulitis. 2016-02-19 EXAM: Ext Upper non vascular US ELIZABETH Holden 11:21:33-00:00 DATE: 02/19/2016 11:20 AM CDT INDICATION: M75.102 Unspecif ied rotator cuff tear or rupture of left shoulder, not specified as traumatic Pain. COMPARISON: None. TECHNIQUE: Ultrasound examination of the left [facility] was performed. DISCUSSION: Biceps tendon: There is [...] some septation (synovitis) . Questionable adhesive capsulitis. 2016-02-19 EXAM: Ext Upper non vascular US MH ELIZABETH Holdne 11:21:33-00:00 DATE: 02/19/2016 11:20 AM CDT INDICATION: M75.102 Unspecif ied rotator cuff tear or rupture of left shoulder, not specified as traumatic Pain. COMPARISON: None. TECHNIQUE: Ultrasound examination of the left [facility] was performed. DISCUSSION: Biceps tendon: There is [...]
--- NOTE | 2023-04-06 14:33 | ER ---
Nurse's Notes [facility] Name: Dany Thornton Age: 62 yrs Sex: Male : 1960 Arrival Date: 04/06/2023 Time: 13:24 Bed 14 Private MD: Diagnosis: Presentation: 04/06 13:40 Chief complaint: Patient states: had blood pressure today 183/100. Takes bp meds at ko1 home. Also complains of abdominal pain, took dulcolax. Also complains of being sore all over, headache. Chief complaint:. Coronavirus screen: At this time, the client does not indicate any symptoms associated with coronavirus-19. Ebola Screen: No symptoms or risks identified at this time. Initial Sepsis Screen: Does the patient meet any 2 criteria? No. Patient's initial sepsis screen is negative. Does the patient have a suspected source of infection? No. Patient's initial sepsis screen is negative. Risk Assessment: Do you want to hurt yourself or someone else? Patient reports no desire to harm self or others. Onset of symptoms was April 06, 2023. 13:40 Method Of Arrival: Wheelchair ko1 13:40 Acuity: IRINEO 3 ko1 Triage Assessment: 13:47 Headache History: Denies prior headaches. General: Appears distressed, uncomfortable, ko1 Behavior is calm, cooperative, appropriate for age. Pain: Complains of pain in forehead Pain currently is 8 out of 10 on a pain scale. Pain began gradually, Also complains of no other associated symptoms. Neuro: Salazar Agitation-Sedation Scale (RASS): 0 - Alert and Calm. Historical: - Allergies: 13:47 Benadryl; ko1 - PMHx: 13:47 Hypertension; ko1 - PSHx: 13:47 Knee replacement x2-left; Shoulder surgery-left; ko1 - Immunization history:: Adult Immunizations up to date. - Social history:: Smoking status: Patient denies any tobacco usage or history of. Vital Signs: 13:40 BP 156 / 79; Pulse 63; Resp 18; Temp 98.1; Pulse Ox 100% ; ko1 ED Course: 13:27 Patient arrived in ED. ts1 13:47 Triage completed. ko1 13:47 Arm band placed on left wrist. Patient placed in waiting room, in a wheelchair, Patient ko1 notified of wait time. 14:08 Mark Aquino MD is Attending Physician. [facility] 14:32 Patient placed in an exam room, on a stretcher. ph Administered Medications: No medications were administered Outcome: 14:33 Patient left the ED. ph Signatures: Mark Aquino MD MD cha Hall, Patricia, RN RN ph Oliver, Kathy, RN RN ko1 Tamera Khan PAS [facility] ts1
[2023-04-06 14:50] VITALS: BP 156/79; TEMP 98.1; O2SAT 100
== END 2023-04-06 14:33 | disposition left against medical advice (07) ==
LOC: ER 13:24
DX: Z53.21 Procedure and treatment not carried out due to patient leaving prior to being seen by health care provider (principal)
CPT/HCPCS: 99281

== ENCOUNTER 2024-08-23 22:50 | Emergency (ER) | payer BC ==
[2024-08-23 23:25] LABS: Absolute Eosinophils 0.1 K/uL (0-0.5); Absolute Monocytes 1.6 K/uL (0.1-1.3); Absolute Neutrophil 8.4 K/uL (1.8-8.0); Basophils % 0.4 % (0-1.3); Eosinophils % 0.7 % (0-4.4); Hematocrit 45.3 % (39.6-49.0); Hemoglobin 15.2 g/dL (13.6-17.9); Lymphocytes % 16.2 % (15.3-44.8); MCH 30.3 pg (27.0-35.0); MCHC 33.7 g/dL (32.0-36.0); MCV 90.1 fL (80-100); MPV 8.9 fL (7.6-11.3); Neutrophils % 69.7 % (41.7-73.7); Nucleated Red Blood Cells % 0.1 % (0-0); Platelets 360 thou/uL (152-406); RBC Red Blood Cell Count 5.03 M/uL (4.33-5.43); Red Cell Distribution Width 12.9 % (12.1-15.2)
[2024-08-23 23:43] LABS: Anion Gap 14.8 mEq/L (5.0-15.0)
[2024-08-23 23:47] LABS: Potassium 3.8 mEq/L (3.5-5.1)
[2024-08-24 02:55] LABS: Barbiturates NEGATIVE (NEGATIVE); Benzodiazepines NEGATIVE (NEGATIVE); Cocaine NEGATIVE (NEGATIVE); METHAMPHETAM NEGATIVE (NEGATIVE); Methadone NEGATIVE (NEGATIVE); Opiates NEGATIVE (NEGATIVE); Phencyclidine NEGATIVE (NEGATIVE); THC Cannibis NEGATIVE (NEGATIVE)
--- NOTE | 2024-08-24 04:11 | RAD REPORT ---
PROCEDURE: CT Head Without Intravenous Contrast CLINICAL INDICATION: The patient is 64 years old and is Male; CONFUSED Bed Name: 2 TECHNIQUE: Axial computed tomography images of the head/brain without intravenous contrast. Sagittal and coron al reformatted images were created and reviewed. This CT exam was performed using one or more of the following dose reduction techniques: automated exposure control, adjustment of the mA and/or kV according to patient size, and/or use of iterative reconstruction technique. COMPARISON: 01/31/2023 CT and cervical spine FINDINGS: BRAIN: Remote bilateral basal ganglia lacunar infarcts. Mild bilateral periventricular and deep white matter microangiopathy changes. No extra-axial fluid collection. No intracranial hemorrhage. No transtentorial herniation. No focal lee-white matter differentiation abnormality. MIDLINE SHIFT: No midline shift. VENTRICLES: Unremarkable No ventriculomegaly. BONES/JOINTS: No fracture of the calvarium or visualized facial bones. SOFT TISSUES: Unremarkable SINUSES: No masses, bony erosion or evidence of acute sinusitis. MASTOID AIR CELLS: Unremarkable as visualized. No mastoid effusion. IMPRESSION: No acute findings in the head/brain. Electronically signed by: Roderick Rose MD 08/24/2024 04:03 AM [facility] Due to temporary technical issues with the PACS/Qminder reporting system, reports are being rod d by the in-house radiologist without review as a courtesy to ensure prompt reporting the interpreting radiologist is fully responsible for the content of the report. Transcribed Date/Time: 08/24/2024 4:11 AM
--- NOTE | 2024-08-24 05:36 | ER ---
Nurse's Notes [facility] Name: Dany Thornton Age: 64 yrs Sex: Male : 1960 Arrival Date: 08/23/2024 Time: 22:50 Bed 2 Private MD: Diagnosis: Alcohol abuse with intoxication;Unspecified adverse effect of drug or medicament Presentation: 08/23 22:54 Chief complaint: EMS states: Someone called and said he wouldn't wake up. Pt wouldn't vc1 wake up until about half way here. When he awoke he stated he took half an Ambien and drank a beer. Coronavirus screen: Client denies travel out of the [place] in the last 14 days. At this time, the client does not indicate any symptoms associated with coronavirus-19. Ebola Screen: Patient negative for fever greater than or equal to 101.5 degrees Fahrenheit, and additional compatible Ebola Virus Disease symptoms Patient denies exposure to infectious person. Patient denies travel to an Ebola-affected area in the 21 days before illness onset. No symptoms or risks identified at this time. Initial Sepsis Screen: Does the patient meet any 2 criteria? No. Patient's initial sepsis screen is negative. Does the patient have a suspected source of infection? No. Patient's initial sepsis screen is negative. Risk Assessment: Do you want to hurt yourself or someone else? Patient reports no desire to harm self or others. Onset of symptoms was August 23, 2024. Care prior to arrival: None. Activity prior to arrival: None. 22:54 Method Of Arrival: EMS: [facility] vc1 22:54 Acuity: IRINEO 4 vc1 22:56 Note Took 5mg Ambien. vc1 Triage Assessment: 22:58 General: Appears in no apparent distress. uncomfortable, Behavior is calm, cooperative, vc1 appropriate for age. General: Appears Behavior is. Pain: Denies pain. EENT: No deficits noted. No signs and/or symptoms were reported regarding the EENT system. Neuro: Neuro: Level of Consciousness is alert, obeys commands, lethargic, Oriented to person, place, time, situation, Appropriate for age Cardiovascular: Heart tones S1 S2 present Capillary refill < 3 seconds Patient's skin is warm and dry. Respiratory: Airway is patent Respiratory effort is even, unlabored, Respiratory pattern is Breath sounds are clear bilaterally. GI: Abdomen is round non-distended. : No deficits noted. No signs and/or symptoms were reported regarding the genitourinary system. Derm: Skin is intact, is healthy with good turgor, Skin is dry, Skin is normal, Skin temperature is warm. Musculoskeletal: Circulation, motion, and sensation intact. Range of motion: intact in all extremities. Historical: - Allergies: 22:57 Benadryl; vc1 - PMHx: 22:57 Hypertension; Diabetes mellitus; vc1 - PSHx: 22:57 Knee replacement x2-left; Shoulder surgery-left; vc1 - Immunization history:: Client reports receiving the 2nd dose of the Covid vaccine. - Infectious Disease History:: Denies. - Social history:: Smoking status: Patient reports use of chewing tobacco. Screenin:57 [facility] ED Fall Risk Assessment (Adult) History of falling in the last 3 months, vc1 including since admission No falls in past 3 months (0 pts) Confusion or Disorientation No (0 pts) Intoxicated or Sedated No (0 pts) Impaired Gait No (0 pts) Mobility Assist Device Used No (0 pt) Altered Elimination No (0 pt) Score/Fall Risk Level 0 - 2 = Low Risk Oriented to surroundings, Maintained a safe environment, Educated pt \T\ family on fall prevention, incl call for assistance when getting out of bed, Assessed \T\ reinforced patient's understanding of fall precautions, Provided non-skid footwear, Hourly rounding (assess needs \T\ fall precautionary measures) done. Abuse screen: Denies threats or abuse. Nutritional screening: No deficits noted. Tuberculosis screening: No symptoms or risk factors identified. Assessment: 23:43 General: See triage assessment. vc1 08/24 00:11 Reassessment: Patient appears in no apparent distress at this time. No changes from vc1 previously documented assessment. Patient and/or family updated on plan of care and expected duration. Pain level reassessed. Patient is alert, oriented x 3, equal unlabored respirations, skin warm/dry/pink. 01:21 Reassessment: No changes from previously documented assessment. Patient and/or family vc1 updated on plan of care and expected duration. Pain level reassessed. General: Appears in no apparent distress. Behavior is Responds to painful stimuli.. 02:52 Reassessment: Patient appears in no apparent distress at this time. No changes from vc1 previously documented assessment. Patient and/or family updated on plan of care and expected duration. Pain level reassessed. Patient denies pain at this time. General: Appears in no apparent distress. comfortable, Behavior is cooperative. 03:43 Reassessment: Patient appears in no apparent distress at this time. No changes from vc1 previously documented assessment. Patient and/or family updated on plan of care and expected duration. Pain level reassessed. Patient is alert, oriented x 3, equal unlabored respirations, skin warm/dry/pink. 05:51 Reassessment: Patient appears in no apparent distress at this time. Patient and/or bm8 family updated on plan of care and expected duration. Pain level reassessed. Patient is alert, oriented x 3, equal unlabored respirations, skin warm/dry/pink. Patient denies pain at this time. Patient states feeling better. Patient states symptoms have improved. Vital Signs: 08/23 22:54 BP 133 / 70; Pulse 73; Resp 14; Temp 97.8; Pulse Ox 98% ; Weight 74.84 kg; Height 5 ft. vc1 7 in. ; 23:00 BP 125 / 56; Pulse 68; Resp 15; Pulse Ox 96% ; vc1 08/24 00:10 BP 113 / 61; Pulse 66; Resp 24; Pulse Ox 95% ; vc1 01:00 BP 98 / 50; Pulse 63; Resp 14; Pulse Ox 96% ; vc1 02:52 BP 112 / 66; Pulse 73; Resp 14; Pulse Ox 98% ; vc1 03:30 BP 125 / 54; Pulse 70; Resp 16; Pulse Ox 95% ; vc1 05:51 BP 128 / 62; Pulse 74; Resp 18; Temp 97.8; Pulse Ox 97% ; Pain 0/10; bm8 08/23 22:54 Body Mass Index 25.84 (74.84 kg, 170.18 cm) vc1 05:51 Pain Scale: Adult bm8 [place] Coma Score: 05:51 Eye Response: spontaneous(4). Motor Response: obeys commands(6). Verbal Response: bm8 oriented(5). Total: 15. ED Course: 08/23 22:53 Patient arrived in ED. vc1 22:53 Warren Flores MD is Attending Physician. bo1 22:56 Triage completed. vc1 22:57 Arm band placed on right wrist. vc1 22:58 Patient has correct armband on for positive identification. Bed in low position. Call vc1 light in reach. Pulse ox on. NIBP on. 23:01 Inserted saline lock: 22 gauge in right antecubital area, using aseptic technique. [facility] Blood collected. Flushed with 10 mL NS. 23:01 Initial lab(s) drawn, by hi, sent to lab. [facility] : EKG done, by ED staff, reviewed by Warren Flores MD. [facility] 23: Door closed. Lights dimmed. Warm blanket given. Pillow given. [facility] 23: Basic Metabolic Panel Sent. [facility] : CBC with Diff Sent. [facility] : ETOH Level Sent. [facility] 08/24 00:10 Yisel Kunz RN is Primary Nurse. vc1 02:21 CT Head Brain wo Cont In Process Unspecified. EDMS 02:52 No provider procedures requiring assistance completed. vc1 05:51 Provided Education on: post er care. bm8 05:51 IV discontinued, intact, bleeding controlled, No redness/swelling at site. Pressure bm8 dressing applied. Administered Medications: No medications were administered Medication: 08/23 22:58 VIS not applicable for this client. vc1 Outcome: 08/24 05:36 Discharge ordered by . bo1 05:51 Discharged to home ambulatory, with family, bm8 05:51 Condition: stable 05:51 Discharge instructions given to patient, Instructed on discharge instructions, follow up and referral plans. Demonstrated understanding of instructions, follow-up care, medications, 05:53 Patient left the ED. bm8 Signatures: Dispatcher [employer] EDMS Yisel Kunz, RN RN vc1 Janay Conn [facility] Warren Flores MD MD boStone Smart RN RN bm8
--- NOTE | 2024-08-24 05:36 | EDPHYS ---
Physician Documentation [facility] Name: Dany Thornton Age: 64 yrs Sex: Male : 1960 Arrival Date: 08/23/2024 Time: 22:50 Bed 2 Private MD: ED Physician Warren Flores HPI: 08/24 05:37 This 64 yrs old Male presents to ER via EMS with complaints of Altered Mental Status. bo1 08/23 22:54 EMS transport with ETOH and Ambien ingestion. bo1 08/24 05:37 Onset: The symptoms/episode began/occurred just prior to arrival. Possible causes: bo1 alcohol, Taking of Ambien (unknown dose). Current symptoms: In the emergency department the patient's symptoms are unchanged from the initial presentation. Historical: - Allergies: 08/23 22:57 Benadryl; vc1 - PMHx: 22:57 Hypertension; Diabetes mellitus; vc1 - PSHx: 22:57 Knee replacement x2-left; Shoulder surgery-left; vc1 - Immunization history:: Client reports receiving the 2nd dose of the Covid vaccine. - Infectious Disease History:: Denies. - Social history:: Smoking status: Patient reports use of chewing tobacco. ROS: 08/24 05:34 Unable to obtain ROS due to patient's inability to understand questions, patient being bo1 uncooperative, Sleepy pt (combo of ETOH and Ambien), 05:38 Constitutional: Negative for fever per discussed with daughter (phone call from the bo1 daughter) Exam: 08/23 23:21 ECG was reviewed by the Attending Physician. bo1 ECG was reviewed by the Attending Physician. 08/24 05:29 Constitutional: This is a well developed, well nourished patient who is in no acute bo1 distress. Constitutional: The patient appears comfortable, smells of alcohol, Sleepy and not answering questions Head/face: Exam is negative for acute changes, obvious evidence of injury or deformity, Eyes: Pupils: no acute changes, right pupil is approximately 3 mm(s), left pupil is approximately 3 mm(s), Neck: External neck: is normal, no acute changes, Cardiovascular: Rate: normal, Rhythm: regular, Pulses: no pulse deficits are appreciated, 05:31 Respiratory: the patient does not display signs of respiratory distress, Respirations: bo1 normal, Breath sounds: are clear throughout, 05:31 Abdomen/GI: Palpation: abdomen is soft and non-tender, 05:31 Skin: no rash present. 05:31 Neuro: Unable to test due to sleepiness, Vital Signs: 08/23 22:54 BP 133 / 70; Pulse 73; Resp 14; Temp 97.8; Pulse Ox 98% ; Weight 74.84 kg; Height 5 ft. vc1 7 in. ; 23:00 BP 125 / 56; Pulse 68; Resp 15; Pulse Ox 96% ; vc1 02 00:10 BP 113 / 61; Pulse 66; Resp 24; Pulse Ox 95% ; vc1 01:00 BP 98 / 50; Pulse 63; Resp 14; Pulse Ox 96% ; vc1 02:52 BP 112 / 66; Pulse 73; Resp 14; Pulse Ox 98% ; vc1 03:30 BP 125 / 54; Pulse 70; Resp 16; Pulse Ox 95% ; vc1 05:51 BP 128 / 62; Pulse 74; Resp 18; Temp 97.8; Pulse Ox 97% ; Pain 0/10; bm8 08/23 22:54 Body Mass Index 25.84 (74.84 kg, 170.18 cm) vc1 05:51 Pain Scale: Adult bm8 [place] Coma Score: 05:51 Eye Response: spontaneous(4). Motor Response: obeys commands(6). Verbal Response: bm8 oriented(5). Total: 15. MDM: 08/23 22:53 Medical Screening Exam initiated bo1 08/24 05:32 Differential Diagnosis: alcohol intoxication, Co mingled with Ambien (sleep agent). bo1 Data reviewed: vital signs, lab test result(s), radiologic studies, CT scan. ED course: Pt has now woken up and wants to go home. Call his daughter Daniele: [phone]. ED course: Left message as Daniele had not picked up her phone. 08/23 22:54 Order name: Basic Metabolic Panel; Complete Time: 01:39 bo1 08/23 22:54 Order name: CBC with Diff; Complete Time: 01:39 bo1 08/23 22:54 Order name: ETOH Level; Complete Time: 01:39 bo1 08/23 22:54 Order name: Urine Drug Screen; Complete Time: 02:59 bo1 08/24 01:41 Order name: CT Head Brain wo Cont; Complete Time: 04:46 bo1 08/24 01:49 Order name: EKG; Complete Time: 01:49 bo1 08/23 22:54 Order name: EKG - Nurse/Tech; Complete Time: 23:00 bo1 08/23 22:54 Order name: IV Saline Lock; Complete Time: 23:02 bo1 08/23 22:54 Order name: Labs collected and sent; Complete Time: 23:02 bo1 08/24 01:49 Order name: Cardiac monitoring; Complete Time: 02:04 bo1 EC/31 23:21 Rate is 68 beats/min. Rhythm is regular. QRS [place] is Normal. [place] interval is normal. QRS bo1 interval is normal. QT interval is prolonged at 458 msec. Interpreted by me. Reviewed by me. 23:21 Rate is 68 beats/min. Rhythm is regular. QRS [place] is Normal. [place] interval is normal. QRS bo1 interval is normal. QT interval is prolonged at 458 msec. No Q waves. T waves are Normal. T waves are Inverted. No ST changes noted. Clinical impression: Normal ECG and Prolonged QT. Interpreted by me. Reviewed by me. Administered Medications: No medications were administered Disposition Summary: 08/24/24 05:36 Discharge Ordered Notes: Location: Home bo1 Problem: an ongoing problem bo1 Symptoms: have improved bo1 Condition: Stable bo1 Diagnosis - Alcohol abuse with intoxication bo1 - Unspecified adverse effect of drug or medicament bo1 Followup: bo1 - With: Private Physician - When: Upon discharge from the Emergency Department - Reason: Recheck today's complaints, Continuance of care Discharge Instructions: - Discharge Summary Sheet bo1 - Alcohol Intoxication, Meni-lt-Nnfe bo1 Forms: - Medication Reconciliation Form bo1 - Antibiotic Education bo1 - Prescription Opioid Use bo1 - Patient Portal Instructions bo1 - Leadership Thank You Letter bo1 Signatures: Dispatcher [facility] Yisel Marie RN RN vc1 Warren Flores MD MD bo1 Corrections: (The following items were deleted from the chart) 22:54 22:54 BASIC METABOLIC PANEL+C.LAB.BRZ ordered. EDMS EDMS 22:54 22:54 CBC+H.LAB.BRZ ordered. EDMS EDMS 22:54 22:54 ETHANOL+C.LAB.BRZ ordered. EDMS EDMS 22:54 22:54 URINE DRUG SCREEN+.LAB.SAPPHIRE ordered. EDMS EDMS 08/24 02:12 01:49 EKG - Nurse/Tech ordered. bo1 bm8
[2024-08-24 05:57] VITALS: TEMP 97.8
[2024-08-24 06:05] VITALS: BP 128/62; O2SAT 97
== END 2024-08-24 05:53 | disposition home or self-care (01) ==
LOC: ER 22:50
DX: F10.129 Alcohol abuse with intoxication, unspecified (principal); T42.6X5A Adverse effect of other antiepileptic and sedative-hypnotic drugs, initial encounter; I10 Essential (primary) hypertension; F17.220 Nicotine dependence, chewing tobacco, uncomplicated
CPT/HCPCS: 36415; 70450; 80048; 80307; 82077; 85025; 93005; 99284